=== PATIENT | female | born 1945 | race Caucasian/White ===

== ENCOUNTER 2020-04-14 09:43 | Outpatient (REF) | payer MEDICARE, SELFPAY ==
[2020-04-14 10:39] LABS: Alanine Aminotransferase 13 U/L (0-31); Anion Gap 14 (12-20); Aspartate Amino Transferase 15 U/L (5-31); Blood Urea Nitrogen 14 mg/dL (9-16); Carbon Dioxide 24 mmol/L (22-29); Chloride 101 mmol/L (96-108); Cholesterol 165 mg/dL; Estimated Glomerular Filt Rate 58; Glucose Fasting 106 mg/dL (60-99); HDL Cholesterol 50 mg/dL; LDL Cholesterol Calculated 91 mg/dl; Potassium 4.4 mmol/l (3.3-5.1); Sodium 135 mmol/L (135-145); Triglycerides 123 mg/dL
[2020-04-14 10:53] LABS: Free T4 (Free Thyroxine) 1.29 ng/dL (0.71-1.85); Vitamin D 25-OH Total 38.5 ng/mL (>30)
== END 2020-04-14 09:44 | disposition home or self-care (01) ==
LOC: HO.10HDL 09:43
PROVIDERS: PCP Internal Medicine; Visit Provider Internal Medicine
DX: E03.9 Hypothyroidism, unspecified (principal); M81.0 Age-related osteoporosis without current pathological fracture; E78.5 Hyperlipidemia, unspecified
CPT/HCPCS: 80048; 80061; 82306; 84439; 84450; 84460

== ENCOUNTER 2020-08-07 13:18 | Outpatient (REF) | payer MEDICARE, BC, SELFPAY ==
--- NOTE | ~2020-08-07 | MM_ITS ---
EXAMINATION: BONE DENSITOMETRY CLINICAL INDICATION: Age-related osteoporosis without current pathological fracture. COMPARISON: Previous BD dated 08/25/2017 and baseline BD dated 11/17/2006. TECHNIQUE: Using a [employer] DXA System (software version: 13.1) manufactured by [employer], dual-energy x-ray absorptiometry was performed of the lumbar spine and left hip. The images are of good technical quality. Summary results are attached. FINDINGS: AP SPINE L1-L4: Current: BMD 0.788 g/cm2, Z-score -2.0, T-score -3.3, osteoporosis, 5.2% increase from previous, 4.1% increase from baseline (<5% change is not significant). Prior: BMD 0.749 g/cm2. Baseline: BMD 0.757 g/cm2. LEFT FEMUR, NECK: Current: BMD 0.708 g/cm2, Z-score -0.7, T-score -2.4, osteopenia. Prior: BMD 0.819 g/cm2. Baseline: BMD 0.797 g/cm2. LEFT FEMUR, TOTAL: Current: BMD 0.784 g/cm2, Z-score -0.4, T-score -1.8, osteopenia, 9.7% decrease from previous, 12.7% decrease from baseline (<5% change is not significant). Prior: BMD 0.868 g/cm2. Baseline: BMD 0.898 g/cm2. IDENTIFIED RISK FACTORS: Kidney disease, height loss, family history (parental hip fracture), menopause. HISTORY OF FRACTURE: None listed. MEDICATIONS: Vitamin D. MM/XR DEXA axial skeleton IMPRESSION: 1. DIAGNOSIS: Osteoporosis based on the lowest T-score value of -3.3 in the lumbar spine applying World Health Organization criteria. 2. 10-YEAR FRACTURE RISK PREDICTION, FRAX: Major osteoporotic fracture (clinical spine, forearm, hip or shoulder) 29.0%. Hip fracture 18.7%. 3. Treatment Recommendations: NOF guidelines recommend consideration for treatment in postmenopausal women and men age 50 and older presenting with the following: -A hip or vertebral (clinical or morphometric) fracture. -T-score less than or equal to -2.5 at the femoral neck or spine after appropriate evaluation to exclude secondary causes. -Low bone mass at the hip or spine and a 10-year fracture probability by FRAX of greater than or equal to 3% for hip fracture or greater than or equal to 20% for major osteoporotic fracture based on the [place] adapted WHO algorithm. 4. Other Recommendations: All treatment decisions require clinical judgment and consideration of individual patient factors, including patient preferences, comorbidities, previous drug use, risk factors not captured in the FRAX model (e.g. frailty, falls, vitamin D deficiency, increased bone turnover, interval significant decline in bone density) and possible under or overestimation of fracture risk by FRAX. Additional medical evaluation for secondary cause of low bone mineral density may be appropriate. FUTURE SCAN RECOMMENDATION: People with diagnosed cases of osteoporosis or at high risk for fracture should have regular bone mineral density tests. For patients eligible for Medicare, routine testing is allowed once every 2 years. The testing frequency can be increased to one year for patients who have rapidly progressing disease, those who are receiving or discontinuing medical therapy to restore bone mass, or have additional risk factors.
--- NOTE | ~2020-08-07 | MM_ITS ---
EXAMINATION: MM SCREENING DIGITAL BREAST TOMOSYNTHESIS, BILATERAL CLINICAL INFORMATION: Screening. Asymptomatic. The lifetime risk of breast cancer based on the Tyrer-Cuzick Model is 3%. COMPARISON: Mammography: 09/04/2018, 08/25/2017, 05/25/2016. TECHNIQUE: Digital breast tomosynthesis is performed in both the craniocaudal and mediolateral oblique views along with computer-aided detection (CAD). Synthesized 2D images are generated from the tomosynthesis. Additional left MLO view is provided. FINDINGS: There are scattered areas of fibroglandular density (ACR BI-RADS breast composition Category b). Breast tissue composition borders on predominantly fatty replacement. There are no significant masses, abnormal calcifications, or other abnormalities. Parenchymal pattern is similar to prior exams. No developing density. Again, there are ductal secretory calcifications medial left breast. Bilateral mildly prominent draining veins are chronic as well. No skin thickening. No significant changes. MM/MM tomosynthesis screening BI IMPRESSION: No mammographic evidence of malignancy. ASSESSMENT: BI-RADS 2: Benign RECOMMENDATION: Routine annual mammography screening. This patient's information was entered into a reminder system with a target due date for their next mammogram.
== END 2020-08-07 13:19 | disposition home or self-care (01) ==
LOC: HO.MAMMO 13:18
PROVIDERS: PCP Internal Medicine; Visit Provider Internal Medicine
DX: Z13.820 Encounter for screening for osteoporosis (principal); Z12.31 Encounter for screening mammogram for malignant neoplasm of breast; M81.0 Age-related osteoporosis without current pathological fracture; Z78.0 Asymptomatic menopausal state; Z79.899 Other long term (current) drug therapy
CPT/HCPCS: 77063; 77067; 77080

== ENCOUNTER 2020-09-02 08:34 | Outpatient (REF) | payer MEDICARE, BC, SELFPAY ==
[2020-09-02 09:12] LABS: MANUAL DIFF FLAG NO
[2020-09-02 09:19] LABS: Basophils Absolute Auto 0.1 X10*3/uL (0.0-0.2); Basophils Percent Auto 0.7 % (0-2); Eosinophils Absolute Auto 0.2 X10*3/uL (0.0-0.4); Eosinophils Percent Auto 3.2 % (0-4); Hematocrit 43.9 % (37-47); Hemoglobin 14.4 g/dl (12.0-16.0); Imm Gran Abs Auto 0.03 X10*3/uL (0.00-0.03); Imm Gran Pct Auto 0.4 % (0.0-0.4); Lymphocytes Absolute Auto 1.2 X10*3/uL (1.2-4.9); Lymphocytes Percent Auto 16.9 % (20-40); Mean Corpuscular HGB Conc 32.8 g/dl (31.0-35.0); Mean Corpuscular Hemoglobin 30.7 pg (27.0-33.0); Mean Corpuscular Volume 93.6 fL (80-98); Mean Platelet Volume 8.8 fL (9.4-12.3); Monocytes Absolute Auto 0.6 X10*3/uL (0.1-1.2); Monocytes Percent Auto 8.8 % (2-11); Platelet Count 192 X10*3/uL (160-400); Red Blood Count 4.69 X10*6/uL (4.20-5.50); Red Cell Distribution Width 12.9 % (11.0-16.0); White Blood Count 7.2 X10*3/uL (4.8-10.8)
[2020-09-02 09:47] LABS: Alanine Aminotransferase 14 U/L (0-31); Alkaline Phosphatase 139 U/L (39-117); Anion Gap 13 (12-20); Aspartate Amino Transferase 14 U/L (5-31); Bilirubin Total 0.7 mg/dL (0.0-1.0); Blood Urea Nitrogen 15 mg/dL (9-16); Calcium 9.1 mg/dL (8.4-10.2); Carbon Dioxide 25 mmol/L (22-29); Chloride 103 mmol/L (96-108); Cholesterol 219 mg/dL; Estimated Glomerular Filt Rate 57; Glucose Fasting 113 mg/dL (60-99); HDL Cholesterol 55 mg/dL; LDL Cholesterol Calculated 145 mg/dl; Potassium 4.4 mmol/L (3.3-5.1); Sodium 137 mmol/L (135-145); Triglycerides 96 mg/dL
[2020-09-02 09:52] LABS: Free T4 (Free Thyroxine) 1.35 ng/dL (0.71-1.85); Thyroid Stimulating Hormone 1.42 uIU/mL (0.32-4.0); Vitamin D 25-OH Total 37.3 ng/mL (>30)
== END 2020-09-02 08:35 | disposition home or self-care (01) ==
LOC: HO.LAB 08:34
PROVIDERS: PCP Internal Medicine; Visit Provider Internal Medicine
DX: E04.2 Nontoxic multinodular goiter (principal); E78.5 Hyperlipidemia, unspecified; I48.0 Paroxysmal atrial fibrillation; N18.30 Chronic kidney disease, stage 3 unspecified; M81.0 Age-related osteoporosis without current pathological fracture; E03.9 Hypothyroidism, unspecified; Z78.0 Asymptomatic menopausal state
CPT/HCPCS: 36415; 80053; 80061; 82306; 84439; 84443; 85025

== ENCOUNTER → 2020-10-06 10:52 | Outpatient (BNVA) | payer MEDICARE, BC, SELFPAY | PROVIDERS: PCP Internal Medicine; Visit Provider Internal Medicine Endocrinology, Diabetes & Metabolism | DX: M81.0 Age-related osteoporosis without current pathological fracture (principal); E04.2 Nontoxic multinodular goiter | CPT/HCPCS: 99202 ==

== ENCOUNTER 2020-10-07 08:41 | Outpatient (REF) | payer MEDICARE, BC, SELFPAY ==
[2020-10-07 09:46] LABS: Alanine Aminotransferase 11 U/L (0-31); Alkaline Phosphatase 141 U/L (39-117); Anion Gap 12 (12-20); Aspartate Amino Transferase 13 U/L (5-31); Bilirubin Total 0.8 mg/dL (0.0-1.0); Blood Urea Nitrogen 14 mg/dL (9-16); Calcium 9.1 mg/dL (8.4-10.2); Carbon Dioxide 23 mmol/L (22-29); Chloride 105 mmol/L (96-108); Estimated Glomerular Filt Rate 51; Glucose Fasting 114 mg/dL (60-99); Potassium 4.2 mmol/L (3.3-5.1); Sodium 136 mmol/L (135-145); Total Protein 6.9 g/dL (6.5-8.0)
[2020-10-09 15:27] LABS: Calcium (PTHI) 9.1 mg/dL (8.6-10.4); PTHI 41 pg/mL (14-64)
[2020-10-10 09:42] LABS: Alkaline Phosphatase Bone 26.2 mcg/L (5.6-29.0)
[2020-10-11 17:23] LABS: VITAMIN D (1,25 OH) D3 47 pg/mL; Vit D (1,25-Dihydroxy) Total 47 pg/mL (18-72); Vitamin D (1,25 OH) D2 <8 pg/mL
[2020-10-12 00:12] LABS: N-Telopeptide 46 (see note); NTXCreaRU 37 mg/dL (20-275)
== END 2020-10-07 08:42 | disposition home or self-care (01) ==
LOC: HO.10HDL 08:41
PROVIDERS: Visit Provider Internal Medicine Endocrinology, Diabetes & Metabolism
DX: M81.0 Age-related osteoporosis without current pathological fracture (principal)
CPT/HCPCS: 36415; 80053; 82523; 82652; 83970; 84075

== ENCOUNTER 2020-10-22 09:37 | Outpatient (REF) | payer MEDICARE, BC, SELFPAY ==
[2020-10-22 11:22] LABS: Total Volume 24 Hour Urine 1950 mL
[2020-10-22 12:23] LABS: Creatinine, 24Hr Urine 0.8 G/Day (1.0-2.0)
[2020-10-23 18:56] LABS: Calcium, 24 Hr Urine 216 mg/24 h; Calcium/Creatinine Ratio 247 mg/g creat (30-275); Creatinine 24Hr Urine 0.88 g/24 h (0.50-2.15)
== END 2020-10-22 09:38 | disposition home or self-care (01) ==
LOC: HO.10HDLNP 09:37
PROVIDERS: Visit Provider Internal Medicine Endocrinology, Diabetes & Metabolism
DX: M81.0 Age-related osteoporosis without current pathological fracture (principal)
CPT/HCPCS: 82340; 82570

== ENCOUNTER → 2020-11-04 10:38 | Outpatient (BNVA) | payer MEDICARE, BC, SELFPAY | PROVIDERS: PCP Internal Medicine; Visit Provider Internal Medicine Endocrinology, Diabetes & Metabolism | DX: M81.0 Age-related osteoporosis without current pathological fracture (principal); E03.9 Hypothyroidism, unspecified; E04.2 Nontoxic multinodular goiter; N18.30 Chronic kidney disease, stage 3 unspecified; E78.5 Hyperlipidemia, unspecified; E55.9 Vitamin D deficiency, unspecified; I48.0 Paroxysmal atrial fibrillation; Z87.891 Personal history of nicotine dependence | CPT/HCPCS: 99212 ==

== ENCOUNTER 2020-11-14 15:33 | Outpatient (REF) | payer MEDICARE, BC, SELFPAY ==
--- NOTE | ~2020-11-14 | US_ITS ---
EXAMINATION: US THYROID CLINICAL INFORMATION: Nontoxic multinodular goiter. COMPARISON: Ultrasound soft tissue head/neck thyroid dated 09/14/2010 and 12/20/2007. CT neck with intravenous contrast dated 03/11/2009. TECHNIQUE: Linear transducer cortes-scale and color Doppler examination with attention to the region of the thyroid. FINDINGS: SIZE: Measurements of the thyroid lobes and nodules are given in sagittal, anteroposterior and transverse dimensions respectively. Right Thyroid Lobe: 2.8 x 0.9 x 1.4 cm, volume 1.8 mL. Previously 3.6 x 1.5 x 1.2 cm, volume 3.4 mL. Parenchyma: The gland echotexture is homogeneous. Thyroid vascularity is normal. Left Thyroid Lobe: 4.9 x 1.5 x 2.0 cm, volume 7.6 mL. Previously 4.5 x 1.8 x 1.4 cm, volume 5.9 mL. Parenchyma: The gland echotexture is heterogeneous. Thyroid vascularity is increased. Isthmus: 0.3 cm in maximum AP dimension. Previously 0.3 cm. Estimated total number of nodules greater than or equal to 1 cm: 1. Business Process Analyst nodules are described as follows: 1. Location: Right mid. Size: 0.5 x 0.4 x 0.4 cm, volume 0.04 mL. Previously: 0.3 x 0.2 x 0.5 cm, volume 0.02 mL. Nodule characteristics: Composition: Solid (2). Echogenicity: Hypoechoic (2). Shape: Not taller than wide (0). Margins: Smooth (0). Echogenic Foci: None (0). ACR TI-RADS total points: 4 Previous: n/a ACR TI-RADS category: 4 Previous: n/a Significant change in size (>/= 20% in 2 dimensions and minimal increase of 2 mm or 50% or greater increase in volume): None. Change in features: None. Change in ACR TI-RADS risk category: n/a 2. Location: Right inferior. Size: 0.6 x 0.4 x 0.6 cm, volume 0.07 mL. Previously: Not seen previously. Nodule characteristics: Composition: Solid (2). Echogenicity: Hypoechoic (2). Shape: Not taller than wide (0). Margins: Smooth (0). Echogenic Foci: None (0). ACR TI-RADS total points: 4 Previous: n/a ACR TI-RADS category: 4 Previous: n/a Significant change in size (>/= 20% in 2 dimensions and minimal increase of 2 mm or 50% or greater increase in volume): None Change in features: None Change in ACR TI-RADS risk category: n/a 3. Location: Left inferior. Size: 3.2 x 1.5 x 2.2 cm, volume 5.7 mL. Previously: 2.1 x 1.4 x 2.0 cm, volume 3.1 mL. Nodule characteristics: Composition: Solid/almost completely solid (2). Echogenicity: Isoechoic (1). Shape: Not taller than wide (0). Margins: Smooth (0). Echogenic Foci: None (0). ACR TI-RADS total points: 3 Previous: n/a ACR TI-RADS category: 3 Previous: n/a Significant change in size (>/= 20% in 2 dimensions and minimal increase of 2 mm or 50% or greater increase in volume): Increased in size. Patient did negative biopsy in 2003. Change in features: None Change in ACR TI-RADS risk category: n/a 4. Location: Left mid lateral. Size: 0.8 x 0.6 x 1.1 cm, volume 0.3 mL. Previously: 0.8 x 0.6 x 0.8 cm, volume 0.2 mL. Nodule characteristics: Composition: Solid (2). Echogenicity: Hypoechoic (2). Shape: Not taller than wide (0). Margins: Smooth (0). Echogenic Foci: None (0). ACR TI-RADS total points: 4 Previous: n/a ACR TI-RADS category: 4 Previous: n/a Significant change in size (>/= 20% in 2 dimensions and minimal increase of 2 mm or 50% or greater increase in volume): None Change in features: None Change in ACR TI-RADS risk category: n/a NODES: Small left neck level 3 lymph node measuring 0.9 x 0.6 x 0.7 cm. US/US thyroid IMPRESSION: Multiple thyroid nodules. Largest left lower pole nodule is solid and has increased in size. This nodule was biopsied in 2003. By ACR TI-RADS reference a repeat biopsy is recommended. ACR TI-RADS RECOMMENDATION REFERENCE: Ultrasound-guided fine-needle aspiration, followup ultrasound, no further follow up. * TR1 (0 point) and TR 2 (2 points): No FNA or follow up * TR3 (3 points): FNA if more than or equal to 2.5 cm in maximum dimension, followup ultrasound in 1, 3 and 5 years if 1.5 to 2.4 cm in maximum dimension. * TR4 (4-6 points): FNA if more than or equal to 1.5 cm in maximum dimension, followup ultrasound in 1, 2, 3 and 5 years if 1 to 1.4 cm in maximum dimension. * TR5 (more than or equal to 7 points): FNA if more than or equal to 1 cm in maximum dimension, followup ultrasound every year for 5 years if 0.5 to 0.9 cm in maximum dimension. * TR3, TR4 or TR5 nodules that are below the size threshold for follow up receive no follow up.
== END 2020-11-14 15:34 | disposition home or self-care (01) ==
LOC: HO.US 15:33
PROVIDERS: Visit Provider Internal Medicine Endocrinology, Diabetes & Metabolism
DX: E04.2 Nontoxic multinodular goiter (principal)
CPT/HCPCS: 76536

== ENCOUNTER 2021-01-08 09:39 | Outpatient (REF) | payer MEDICARE, BC, SELFPAY ==
[2021-01-08 10:36] LABS: Estimated Average Glucose 94 mg/dL; Hemoglobin A1c % 4.9 %
[2021-01-08 10:41] LABS: Alanine Aminotransferase 11 U/L (0-31); Anion Gap 9 (12-20); Aspartate Amino Transferase 14 U/L (5-31); Blood Urea Nitrogen 17 mg/dL (9-16); Calcium 9.5 mg/dL (8.4-10.2); Carbon Dioxide 27 mmol/L (22-29); Chloride 100 mmol/L (96-108); Cholesterol 165 mg/dL; Estimated Glomerular Filt Rate 53; Glucose Fasting 104 mg/dL (60-99); HDL Cholesterol 56 mg/dL; LDL Cholesterol Calculated 93 mg/dl; Potassium 4.4 mmol/L (3.3-5.1); Sodium 132 mmol/L (135-145); Triglycerides 84 mg/dL
[2021-01-08 10:59] LABS: Free T4 (Free Thyroxine) 1.43 ng/dL (0.71-1.85); Thyroid Stimulating Hormone 1.69 uIU/mL (0.32-4.0)
[2021-01-09 17:32] LABS: Thyroid Peroxidase Antibodies 1 IU/mL (<9)
== END 2021-01-08 09:40 | disposition home or self-care (01) ==
LOC: HO.10HDL 09:39
PROVIDERS: Visit Provider Internal Medicine
DX: E78.5 Hyperlipidemia, unspecified (principal); E04.2 Nontoxic multinodular goiter; M19.90 Unspecified osteoarthritis, unspecified site; R73.01 Impaired fasting glucose; E03.9 Hypothyroidism, unspecified; I10 Essential (primary) hypertension
CPT/HCPCS: 36415; 80048; 80061; 82550; 83036; 84439; 84443; 84450; 84460; 86376

== ENCOUNTER → 2021-05-04 10:18 | Outpatient (BNVA) | payer MEDICARE, BC, SELFPAY | PROVIDERS: PCP Internal Medicine; Visit Provider Internal Medicine | DX: M81.0 Age-related osteoporosis without current pathological fracture (principal); E04.2 Nontoxic multinodular goiter; E55.9 Vitamin D deficiency, unspecified | CPT/HCPCS: 36415; 80053; 82306; 82330; 83970; 84075; 84100; 84165; 84439; 84443; 99212 ==

== ENCOUNTER 2021-05-04 11:05 | Outpatient (REF) | payer MEDICARE, BC, SELFPAY ==
[2021-05-04 14:31] LABS: Alanine Aminotransferase 14 U/L (0-31); Albumin Level 3.8 g/dL (3.5-5.0); Alkaline Phosphatase 121 U/L (39-117); Anion Gap 11 (12-20); Aspartate Amino Transferase 15 U/L (5-31); Bilirubin Total 0.5 mg/dL (0.0-1.0); Blood Urea Nitrogen 17 mg/dL (9-16); Calcium 9.3 mg/dL (8.4-10.2); Carbon Dioxide 26 mmol/L (22-29); Chloride 102 mmol/L (96-108); Estimated Glomerular Filt Rate 50; Glucose Random 119 mg/dL (60-115); Phosphorus 3.7 mg/dL (2.7-4.5); Potassium 4.4 mmol/L (3.3-5.1); Sodium 135 mmol/L (135-145); Total Protein 7.1 g/dL (6.5-8.0)
[2021-05-04 14:56] LABS: Free T4 (Free Thyroxine) 1.24 ng/dL (0.71-1.85); Thyroid Stimulating Hormone 1.91 uIU/mL (0.32-4.0); Vitamin D 25-OH Total 34.1 ng/mL (>30)
[2021-05-05 13:31] LABS: Calcium (PTHI) 9.4 mg/dL (8.6-10.4); PTHI 52 pg/mL (14-64)
[2021-05-05 15:17] LABS: Calcium, Ionized 4.9 mg/dL (4.8-5.6)
[2021-05-05 21:02] LABS: Prot Elec - Albumin 3.7 g/dL (3.8-4.8); Prot Elec - Alpha1 0.4 g/dL (0.2-0.3); Prot Elec - Alpha2 0.8 g/dL (0.5-0.9); Prot Elec - Beta 1 0.4 g/dL (0.4-0.6); Prot Elec - Beta 2 0.4 g/dL (0.2-0.5); Prot Elec - Gamma 1.2 g/dL (0.8-1.7); Prot Elec - Total Protein 6.9 g/dL (6.1-8.1)
[2021-05-08 14:26] LABS: Alkaline Phosphatase Bone 25.2 mcg/L (5.6-29.0)
== END 2021-05-04 11:06 | disposition home or self-care (01) ==
LOC: HO.10HDL 11:05
PROVIDERS: Visit Provider Internal Medicine
DX: Z13.89 Encounter for screening for other disorder (principal)
CPT/HCPCS: 36415; 80053; 82306; 82330; 83970; 84075; 84100; 84165; 84439; 84443

== ENCOUNTER 2021-05-06 14:32 | Outpatient (REF) | payer MEDICARE, BC, SELFPAY ==
[2021-05-06 15:07] LABS: Creatinine, mg/dL 61.44
[2021-05-06 16:26] LABS: Total Volume 24 Hour Urine 1650 mL
[2021-05-08 18:31] LABS: Calcium, 24 Hr Urine 104 mg/24 h; Calcium/Creatinine Ratio 103 mg/g creat (30-275); Creatinine 24Hr Urine 1.01 g/24 h (0.50-2.15)
[2021-05-11 21:07] LABS: N-Telopeptide 51 (see note); NTXCreaRU 44 mg/dL (20-275)
== END 2021-05-06 14:33 | disposition home or self-care (01) ==
LOC: HO.LNP 14:32
PROVIDERS: Visit Provider Internal Medicine
DX: M81.0 Age-related osteoporosis without current pathological fracture (principal)
CPT/HCPCS: 82340; 82523; 82570

== ENCOUNTER 2021-05-14 10:32 | Outpatient (REF) | payer MEDICARE, BC, SELFPAY ==
--- NOTE | 2021-05-14 11:19 | PM.OP ---
Brief Operative Note Date of Service: 05/14/21 Pre-op diagnosis: Multinodular Thyroid Procedure: This is doctor Audra Belcher. This is an ultrasound-guided fine-needle aspiration report. Date of Examination: 05/14/2021 Indication: Multinodular Thyroid Porcedure: Procedure was explained to the patient. Alternatives, the risk and benefits were discussed. Written consent was obtained. A time-out was also obtained. After sterile preparation, fine-needle aspiration of a left mid pole 1.1 cm thyroid nodule was performed using direct ultrasound guidance to confirm accurate needle placement. Three aspirations were made using 27 gauge needles. Samples were submitted for cytology. One pass was dedicated for [employer] sequencing animal care service worker testing. Our attention was then turned to the left lower pole. Fine-needle aspiration of a left lower pole 3.2 cm thyroid nodule was performed using direct ultrasound guidance to confirm accurate needle placement. Three aspirations were made using 27 gauge needles. Samples were submitted for cytology. One pass was dedicated for [employer] sequencing animal care service worker testing. The patient tolerated the procedure well. Aftercare instructions were provided. Impression: Uncomplicated fine needle aspiration biopsy of a left mid pole 1.1 cm thyroid nodule and a left lower pole 3.2 cm thyroid nodule under ultrasound guidance. Surgeon: Audra Belcher, DO Was an Electrical Assemblies Supervisor used for this Procedure?: No Estimated blood loss (mL): 0
[2021-05-14] MEDS: Lidocaine HCl 1 % MPF 5 ML VIAL 2 ML SUBCUT (11:38)
== END 2021-05-14 10:33 | disposition home or self-care (01) ==
LOC: HO.US 10:32
PROVIDERS: Visit Provider Internal Medicine
DX: E04.2 Nontoxic multinodular goiter (principal)
CPT/HCPCS: 10005; 10006; 88172; 88173; 88177; 88305

== ENCOUNTER → 2021-05-28 11:29 | Outpatient (BNVA) | payer MEDICARE, BC, SELFPAY | PROVIDERS: PCP Internal Medicine; Visit Provider Internal Medicine | DX: Z13.89 Encounter for screening for other disorder (principal) ==

== ENCOUNTER → 2021-06-01 07:40 | Outpatient (BNVA) | payer MEDICARE, BC, SELFPAY | PROVIDERS: PCP Internal Medicine; Visit Provider Internal Medicine | DX: M81.0 Age-related osteoporosis without current pathological fracture (principal); E04.2 Nontoxic multinodular goiter; E55.9 Vitamin D deficiency, unspecified | CPT/HCPCS: Q3014 ==

== ENCOUNTER 2021-06-22 08:54 | Outpatient (REF) | payer MEDICARE, BC, SELFPAY ==
[2021-06-22 10:50] LABS: Alanine Aminotransferase 11 U/L (0-31); Aspartate Amino Transferase 17 U/L (5-31); Cholesterol 163 mg/dL; HDL Cholesterol 52 mg/dL; LDL Cholesterol Calculated 85 mg/dl; Triglycerides 134 mg/dL
[2021-06-22 11:14] LABS: Vitamin D 25-OH Total 36.3 ng/mL (>30)
== END 2021-06-22 08:55 | disposition home or self-care (01) ==
LOC: HO.10HDL 08:54
PROVIDERS: Visit Provider Internal Medicine
DX: E78.5 Hyperlipidemia, unspecified (principal)
CPT/HCPCS: 36415; 80061; 82306; 84450; 84460

== ENCOUNTER 2021-08-19 08:57 | Outpatient (REF) | payer MEDICARE, BC, SELFPAY ==
[2021-08-19 11:06] LABS: Estimated Average Glucose 97 mg/dL; Hemoglobin A1C 127.4997 umol/L
[2021-08-19 11:12] LABS: Creatinine Urine 92.17 mg/dL
== END 2021-08-19 08:58 | disposition home or self-care (01) ==
LOC: HO.10HDL 08:57
PROVIDERS: Visit Provider Internal Medicine
DX: R73.01 Impaired fasting glucose (principal)
CPT/HCPCS: 36415; 82043; 83036

== ENCOUNTER 2021-09-24 12:36 | Outpatient (REF) | payer MEDICARE, BC, SELFPAY ==
[2021-09-24 12:58] LABS: MANUAL DIFF FLAG NO
[2021-09-24 13:30] LABS: Basophils Absolute Auto 0.1 X10*3/uL (0.0-0.2); Basophils Percent Auto 0.8 % (0-2); Eosinophils Absolute Auto 0.3 X10*3/uL (0.0-0.4); Eosinophils Percent Auto 3.5 % (0-4); Hematocrit 47.8 % (37.0-47.0); Hemoglobin 15.6 g/dl (12.0-16.0); Imm Gran Abs Auto 0.02 X10*3/uL (0.00-0.03); Imm Gran Pct Auto 0.2 % (0.0-0.4); Lymphocytes Absolute Auto 1.7 X10*3/uL (1.2-4.9); Lymphocytes Percent Auto 18.5 % (20-40); Mean Corpuscular HGB Conc 32.6 g/dl (31.0-35.0); Mean Corpuscular Volume 94.8 fL (80.0-98.0); Mean Platelet Volume 9.2 fL (9.4-12.3); Monocytes Absolute Auto 0.7 X10*3/uL (0.1-1.2); Neutrophils Absolute Auto 6.3 x10*3/uL (2.0-8.3); Platelet Count 193 X10*3/uL (160-400); Red Blood Count 5.04 X10*6/uL (4.20-5.50); Red Cell Distribution Width 13.1 % (11.0-16.0); White Blood Count 9.1 X10*3/uL (4.8-10.8)
[2021-09-24 13:47] LABS: Appearance Urine HAZY; Color Urine YELLOW; Glucose Urine UA NEG (NEG); Leukocyte Esterase Urine 2+ (NEG); Nitrite Urine NEG (NEG); Urine Blood 1+ (NEG); Urine Ketones NEG (NEG); Urine Protein NEG (NEG-TRACE)
[2021-09-24 13:57] LABS: Albumin Level 4.1 g/dL (3.5-5.0); Anion Gap 13 (12-20); Blood Urea Nitrogen 21 mg/dL (9-16); Carbon Dioxide 26 mmol/L (22-29); Chloride 103 mmol/L (96-108); Estimated Glomerular Filt Rate 46; Magnesium 2.4 mg/dL (1.6-2.6); Phosphorus 4.5 mg/dL (2.7-4.5); Potassium 4.8 mmol/L (3.3-5.1); Sodium 137 mmol/L (135-145)
[2021-09-24 14:03] LABS: Protein/Creatinine Ratio, Ur 0.13 (<0.2); Total Protein Urine Random 10 mg/dL (<12)
[2021-09-24 14:20] LABS: Bacteria Urine 2+ /LPF; Squamous Epithelial Cell Urine TRACE /LPF
[2021-09-25 12:11] LABS: Calcium (PTHI) 9.8 mg/dL (8.6-10.4); PTHI 59 pg/mL (16-77)
== END 2021-09-24 12:37 | disposition home or self-care (01) ==
LOC: HO.LAB 12:36
PROVIDERS: PCP Internal Medicine; Visit Provider Internal Medicine Nephrology
DX: N18.31 Chronic kidney disease, stage 3a (principal); N25.0 Renal osteodystrophy; R82.71 Bacteriuria; B96.20 Unspecified Escherichia coli [E. coli] as the cause of diseases classified elsewhere; B96.89 Other specified bacterial agents as the cause of diseases classified elsewhere
CPT/HCPCS: 36415; 80051; 81001; 82040; 82306; 82310; 82565; 83735; 83970; 84100; 84156; 84520; 85025; 87086; 87088; 87186

== ENCOUNTER → 2021-11-30 09:17 | Outpatient (BNVA) | payer MEDICARE, BC, SELFPAY | PROVIDERS: PCP Internal Medicine; Visit Provider Internal Medicine | DX: M81.0 Age-related osteoporosis without current pathological fracture (principal); E04.2 Nontoxic multinodular goiter | CPT/HCPCS: 99212 ==

== ENCOUNTER 2022-02-01 10:07 | Outpatient (REF) | payer MEDICARE, BC, SELFPAY ==
[2022-02-01 12:06] LABS: Alanine Aminotransferase 10 U/L (0-31); Alkaline Phosphatase 142 U/L (39-117); Anion Gap 14 (12-20); Aspartate Amino Transferase 13 U/L (5-31); Bilirubin Total 0.6 mg/dL (0.0-1.0); Blood Urea Nitrogen 21 mg/dL (9-16); Calcium 9.3 mg/dL (8.4-10.2); Carbon Dioxide 25 mmol/L (22-29); Chloride 101 mmol/L (96-108); Estimated Glomerular Filt Rate 53; Glucose Random 74 mg/dL (60-115); Phosphorus 3.8 mg/dL (2.7-4.5); Potassium 4.4 mmol/L (3.3-5.1); Sodium 136 mmol/L (135-145); Total Protein 7.3 g/dL (6.5-8.0)
[2022-02-01 12:15] LABS: Free T4 (Free Thyroxine) 1.21 ng/dL (0.71-1.85); Thyroid Stimulating Hormone 1.88 uIU/mL (0.32-4.0); Vitamin D 25-OH Total 37.2 ng/mL (>30)
[2022-02-02 10:46] LABS: Calcium (PTHI) 9.2 mg/dL (8.6-10.4); PTHI 71 pg/mL (16-77)
[2022-02-07 04:03] LABS: N-Telopeptide 42 (see note); NTXCreaRU 43 mg/dL (20-275)
== END 2022-02-01 10:08 | disposition home or self-care (01) ==
LOC: HO.LAB 10:07
PROVIDERS: PCP Internal Medicine; Visit Provider Internal Medicine
DX: E55.9 Vitamin D deficiency, unspecified (principal); E03.9 Hypothyroidism, unspecified; E04.2 Nontoxic multinodular goiter; M81.0 Age-related osteoporosis without current pathological fracture
CPT/HCPCS: 36415; 80053; 82306; 82523; 83970; 84100; 84439; 84443

== ENCOUNTER → 2022-02-10 13:59 | Outpatient (BNVA) | payer MEDICARE, BC, SELFPAY | PROVIDERS: PCP Internal Medicine; Visit Provider Internal Medicine Endocrinology, Diabetes & Metabolism | DX: M81.0 Age-related osteoporosis without current pathological fracture (principal) | CPT/HCPCS: 96372 ==

== ENCOUNTER 2022-05-27 14:53 | Outpatient (AMB) | payer MEDICARE, BC, SELFPAY ==
--- NOTE | 2022-05-27 15:36 | MHC.PC.OV ---
Vital Signs 05/27/22 15:37 Height 5 ft 2 in Weight 174 lb BMI 31.8 BP 100/60 Blood Pressure Location Lt brachial Position Sitting Pulse 76 Pulse Source Pulse Oximeter Pulse Oximetry (%) 97 Oxygen Delivery Method Room Air Intake Visit Reasons: 6M. F/U-Colonoscopy/A1C/Microalbum Intake Note: Pt is here today for her 6 months f/u Allergies tetracycline [TETRACYCLINE] Allergy (Unknown, Verified 05/27/22 15:56) ITCHINESS, rash nitrofurantoin Allergy (Verified 05/27/22 15:56) Swelling atorvastatin [Lipitor] Adverse Reaction (Unknown, Verified 05/27/22 15:56) Muscle pain bactrim Allergy (Unknown, Uncoded 05/27/22 15:56) Elevated LFTs/Itching/Nausea Medication List - Last Reconciled 05/27/22 by Kala Lundberg MD apixaban (Eliquis) 5 mg PO BID calcium citrate 500 mg (2 x 250 mg calcium) PO BID 90 days cholecalciferol (vitamin D3) 25 mcg PO DAILY 90 days diltiazem HCl 180 mg PO QAM flecainide 50 mg PO Q12H levothyroxine 75 mcg PO DAILY rosuvastatin 5 mg PO 2XW 90 days Tobacco use date assessed: 05/27/22 Fall risk assessment: No Falls in past year Last assessed Fall Risk: 05/27/22 [facility] Medical History Acquired hypothyroidism Chronic kidney disease, stage 3 COPD (chronic obstructive pulmonary disease) Dyslipidemia Impaired fasting glucose Inflammatory arthritis Mixed stress and urge urinary incontinence Multinodular thyroid Osteoporosis Paroxysmal atrial fibrillation Vitamin D deficiency Surgical History History of section Hx of colonoscopy S/P partial hysterectomy Family History Father CVA (cerebral vascular accident) AAA (abdominal aortic aneurysm) Mother Diabetes mellitus HTN (hypertension) Sister Diabetes mellitus Son Substance use disorder Son Substance use disorder Social History Household Members: Children Housing: Unknown / Unable to assess Alcohol intake: current Alcohol intake frequency: holidays/special occasions only Patient Tobacco Use Status: Former Tobacco user Years Smoked: 20 years e-Cigarette/Vaping Use: Never Used Current occupational status: retired Cognitive needs: No Hearing needs: No Vision needs: Yes Questionnaire Thrive Questionnaire Date Thrive assessed: 01/06/21 CATIA-7 AMB Questionnaire CATIA-7 Date CATIA - 7 assessed: 04/07/21 Source: Developed by Drs. Orlando Forbes, Leah Yepez, Samuel Pelayo and colleagues, with an educational cuba from [employer]. Physical exam (Primary Care) Vital Signs: Last Vital Signs Pulse 76 05/27/22 15:37 BP 100/60 05/27/22 15:37 Pulse Ox 97 05/27/22 15:37 Oxygen Delivery Method Room Air 05/27/22 15:37 BMI result Body Mass Index 31.8 Tobacco/Smoking Status: Tobacco use Status Tobacco use date assessed 05/27/22 05/27/22 15:42 Patient Tobacco Use Status Former Tobacco user 05/27/22 15:42 e-Cigarette/Vaping Use Never Used 05/27/22 15:42 Thrive Assessment: Date of Thrive Assessment Date Thrive assessed 01/06/21 05/27/22 15:42 Assessment and Plan Assessment & Plan (1) Impaired fasting glucose: Code(s): R73.01 - Impaired fasting glucose (2) Dyslipidemia: Code(s): E78.5 - Hyperlipidemia, unspecified (3) Colon cancer screening: Code(s): Z12.11 - Encounter for screening for malignant neoplasm of colon Orders: Orders Glucose Fasting Today E78.5 - Hyperlipidemia, unspecified, R73.01 - Impaired fasting glucose Hemoglobin A1c Today E78.5 - Hyperlipidemia, unspecified, R73.01 - Impaired fasting glucose Lipid Panel Today E78.5 - Hyperlipidemia, unspecified, R73.01 - Impaired fasting glucose Referrals Cologuard Test Z12.11 - Encounter for screening for malignant neoplasm of colon, Z12.12 - Encounter for screening for malignant neoplasm of rectum Coding Level of Care Code Est Pt Level 3 (10396) Diagnoses Impaired fasting glucose R73.01 Dyslipidemia E78.5 Colon cancer screening Z12.11
[2022-05-27 15:37] VITALS: BP 100/60; PULSE 76; O2SAT 97; BMI 31.8
== END 2022-05-27 16:19 | disposition home or self-care (01) ==
LOC: HO.HMGC 14:53
PROVIDERS: PCP Internal Medicine; Visit Provider Internal Medicine
DX: R73.01 Impaired fasting glucose (principal); E78.5 Hyperlipidemia, unspecified; Z12.11 Encounter for screening for malignant neoplasm of colon
CPT/HCPCS: 99499

== ENCOUNTER 2022-06-30 08:22 | Outpatient (REF) | payer MEDICARE, BC, SELFPAY ==
[2022-06-30 11:13] LABS: Estimated Average Glucose 105 mg/dL; Hemoglobin A1c % 5.3 %
[2022-06-30 11:35] LABS: Cholesterol 232 mg/dL; Glucose Fasting 96 mg/dL (60-99); HDL Cholesterol 56 mg/dL; LDL Cholesterol Calculated 154 mg/dl; Triglycerides 113 mg/dL
== END 2022-06-30 08:23 | disposition home or self-care (01) ==
LOC: HO.10HDL 08:22
PROVIDERS: Visit Provider Internal Medicine
DX: R73.01 Impaired fasting glucose (principal); E78.5 Hyperlipidemia, unspecified
CPT/HCPCS: 36415; 80061; 82947; 83036

== ENCOUNTER 2022-07-16 08:11 | Outpatient (REF) | payer MEDICARE, BC, SELFPAY ==
[2022-07-16 10:43] LABS: Hematocrit 45.9 % (37.0-47.0); Hemoglobin 15.1 g/dl (12.0-16.0); Red Blood Count 4.91 X10*6/uL (4.20-5.50); White Blood Count 6.8 X10*3/uL (4.8-10.8)
[2022-07-16 10:44] LABS: Mean Corpuscular HGB Conc 32.9 g/dl (31.0-35.0); Mean Corpuscular Hemoglobin 30.8 pg (27.0-33.0); Mean Corpuscular Volume 93.5 fL (80.0-98.0); Mean Platelet Volume 9.3 fL (9.4-12.3); Platelet Count 189 X10*3/uL (160-400); Red Cell Distribution Width 13.1 % (11.0-16.0)
[2022-07-16 10:48] LABS: Appearance Urine Cloudy; Color Urine Yellow; Glucose Urine UA Negative (Negative); Leukocyte Esterase Urine Large (3+) (Negative); Nitrite Urine Negative (Negative); PH 6.5 (5.0-9.0); UMIC TRIGGER UA YES; Urine Blood Trace (Negative); Urine Ketones Negative (Negative); Urine Protein Negative (Neg-Trace)
[2022-07-16 10:53] LABS: Bacteria Urine 1+ (None Seen); Hyaline Casts Urine 0-2 /LPF (0-2); RBC Urine 0-2 /HPF (0-2); Squamous Epithelial Cell Urine 0-2 /HPF (0-2); WBC Urine >50 /HPF (0-5)
[2022-07-16 11:04] LABS: Anion Gap 12 (12-20); Blood Urea Nitrogen 14 mg/dL (9-16); Calcium 8.6 mg/dL (8.4-10.2); Carbon Dioxide 24 mmol/L (22-29); Chloride 105 mmol/L (96-108); Estimated Glomerular Filt Rate 59; Iron 70 mcg/dL (30-160); Percent Iron Saturation 26 % (15-50); Potassium 4.4 mmol/L (3.3-5.1); Sodium 137 mmol/L (135-145); Total Iron Binding Capacity 267 mcg/dL (228-428); Unsaturated Iron Binding 197 ug/dL; Uric Acid 5.9 mg/dL (2.4-5.7)
[2022-07-16 11:21] LABS: Vitamin D 25-OH Total 37.3 ng/mL (>30)
[2022-07-16 12:01] LABS: Creatinine Urine 52.39 mg/dL; Protein/Creatinine Ratio, Ur 0.23 (<0.2); Total Protein Urine Random 12 mg/dL (<12)
[2022-07-19 12:48] LABS: PTHI 36 pg/mL (16-77)
== END 2022-07-16 08:12 | disposition home or self-care (01) ==
LOC: HO.10HDL 08:11
PROVIDERS: Visit Provider Internal Medicine Nephrology
DX: Z13.89 Encounter for screening for other disorder (principal)
CPT/HCPCS: 36415; 80051; 81001; 82306; 82310; 82565; 83540; 83970; 84156; 84520; 84550; 85027

== ENCOUNTER 2022-07-16 14:06 | Outpatient (REF) | payer MEDICARE, BC, SELFPAY ==
--- NOTE | ~2022-07-16 | US_ITS ---
EXAMINATION: US RETROPERITONEAL LIMITED (RENAL ONLY) CLINICAL INFORMATION: CKD stage 3. COMPARISON: Ultrasound abdomen complete 04/11/2018. X-ray abdomen 07/29/2016. CT abdomen and pelvis 05/18/2012. TECHNIQUE: Real-time imaging of the kidneys. FINDINGS: RIGHT KIDNEY: 10.1 x 3.4 x 4.2 cm (SAG x AP x TRV). The kidney is normal in size, contour, and echogenicity. Renal cortical thickness is normal. No calculi or focal parenchymal lesions. No hydronephrosis. LEFT KIDNEY: 10.1 x 4.0 x 4.7 cm (SAG x AP x TRV). The kidney is normal in size, contour, and echogenicity. Renal cortical thickness is normal. No calculi or focal parenchymal lesions. No hydronephrosis. US/US renal BI IMPRESSION: Unremarkable appearing kidneys. No abnormality is seen to account for worsening renal function such as hydronephrosis or significant cortical loss.
== END 2022-07-16 14:07 | disposition home or self-care (01) ==
LOC: HO.US 14:06
PROVIDERS: PCP Internal Medicine; Visit Provider Internal Medicine Nephrology
DX: I12.9 Hypertensive chronic kidney disease with stage 1 through stage 4 chronic kidney disease, or unspecified chronic kidney disease (principal); N18.31 Chronic kidney disease, stage 3a
CPT/HCPCS: 36415; 76775; 80051; 81001; 82306; 82310; 82565; 83540; 83970; 84156; 84520; 84550; 85027

== ENCOUNTER 2022-09-09 08:53 | Outpatient (REF) | payer MEDICARE, BC, SELFPAY ==
--- NOTE | ~2022-09-09 | XR_ITS ---
EXAMINATION: XR CERVICAL SPINE CLINICAL INFORMATION: Cervicalgia COMPARISON: June 15, 2011 TECHNIQUE: 3 views of the cervical spine were obtained. FINDINGS: No abnormal prevertebral soft tissue swelling is seen. No acute cervical spine fracture is noted. There is approximately 2 mm of anterior subluxation of C3 on C4. There is some disc space narrowing seen at the C4-C5 and C5-C6 levels. The C7 vertebral body is not included on the study. There is facet arthropathy present C2-C5 bilaterally. There appears be osteopenia of visualized bones. No significant changes seen compared to study of June 15, 2011 XR/XR cervical spine 2V IMPRESSION: No acute fracture of the cervical spine identified. C7 not included on lateral view. 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 Anterior subluxation by 2 mm of C3 on C4.
== END 2022-09-09 08:54 | disposition home or self-care (01) ==
LOC: HO.HMGCX 08:53
PROVIDERS: Visit Provider Internal Medicine
DX: M54.2 Cervicalgia (principal)
CPT/HCPCS: 72040

== ENCOUNTER 2022-11-24 11:35 | Outpatient (AMB) | payer MEDICARE, BC, SELFPAY ==
--- NOTE | 2022-11-24 12:32 | MHC.PC.OV ---
Vital Signs 11/24/22 12:33 Height 5 ft 2 in Weight 174 lb BMI 31.8 BP 122/60 Blood Pressure Location Lt brachial Position Sitting Pulse 84 Pulse Source Pulse Oximeter Pulse Oximetry (%) 95 Oxygen Delivery Method Room Air Intake Visit Reasons: 6 month f/u Allergies tetracycline [TETRACYCLINE] Allergy (Unknown, Verified 11/24/22 16:27) ITCHINESS, rash nitrofurantoin Allergy (Verified 11/24/22 16:27) Swelling atorvastatin [Lipitor] Adverse Reaction (Unknown, Verified 11/24/22 16:27) Muscle pain bactrim Allergy (Unknown, Uncoded 11/24/22 16:27) Elevated LFTs/Itching/Nausea Medication List - Last Reconciled 11/24/22 by Kala Lundberg MD apixaban (Eliquis) 5 mg PO BID calcium citrate 500 mg (2 x 250 mg calcium) PO BID 90 days cholecalciferol (vitamin D3) 25 mcg PO DAILY 90 days cyclobenzaprine 5 mg PO BEDTIME 7 days diltiazem HCl 180 mg PO QAM flecainide 75 mg PO Q12H levothyroxine 75 mcg PO DAILY rosuvastatin 5 mg PO 2XW 90 days Tobacco use date assessed: 11/24/22 Fall risk assessment: No Falls in past year Last assessed Fall Risk: 11/24/22 Dental Screening Dental Screen Date: 11/24/22 Did you have a dental visit in the last 12 months?: No Did you have a dental problem in the last 6 months where you did not have access to dental care?: No Was dental information given to patient?: No HPI 6 month f/u HPI Details 77-year-old lady with history of multinodular goiter, acquired hypothyroidism, dyslipidemia, has paroxysmal atrial fibrillation on apixaban, has hyperuricemia,, here today for follow-up. She has just contracted COVID infection again last month, developed only a mild cough and generalized achiness for the which lasted several days. Feels better now. She has been compliant with taking her medications, tries to stay active and some regular exercise. Denies any muscle pain/weakness, no chest pain, , no dizziness, no shortness of breath reported [facility] Medical History (Updated 11/24/22 @ 16:37 by Kala Lundberg MD) Acquired hypothyroidism Chronic kidney disease, stage 3 COPD (chronic obstructive pulmonary disease) Dyslipidemia Hyperuricemia Impaired fasting glucose Inflammatory arthritis Mixed stress and urge urinary incontinence Multinodular thyroid Osteoporosis Paroxysmal atrial fibrillation Vitamin D deficiency Surgical History History of section Hx of colonoscopy S/P partial hysterectomy Family History Father CVA (cerebral vascular accident) AAA (abdominal aortic aneurysm) Mother Diabetes mellitus HTN (hypertension) Sister Diabetes mellitus Son Substance use disorder Son Substance use disorder Social History Household Members: Children Housing: Unknown / Unable to assess Alcohol intake: current Alcohol intake frequency: holidays/special occasions only Patient Tobacco Use Status: Former Tobacco user Years Smoked: 20 years e-Cigarette/Vaping Use: Never Used Current occupational status: retired Cognitive needs: No Hearing needs: No Vision needs: Yes Questionnaire PHQ-9 Over the last 2 weeks, how often have you been bothered by any of the following problems? 1. Little interest or pleasure in doing things: not at all 2. Feeling down, depressed, or hopeless: not at all 3. Trouble falling or staying asleep, or sleeping too much: not at all 4. Feeling tired or having little energy: several days 5. Poor appetite or overeating: not at all 6. Feeling bad about yourself - or that you are a failure or have let yourself or your family down: not at all 7. Trouble concentrating on things, such as reading the newspaper or watching television: not at all 8. Moving or speaking so slowly that other people could have noticed. Or the opposite - being so fidgety or restless that you have been moving around a lot more than usual: not at all 9. Thoughts that you would be better off or of hurting yourself in some way: not at all Total score: 1 Depression Screening Interpretation: Negative 62995 - PHQ-9 Billing: Yes Source: Developed by Drs. Orlando Forbes, Leah Yepez, Samuel Pelayo and colleagues, with an educational cuba from [email or web address]. Thrive Questionnaire Date Thrive assessed: 11/24/22 I am a: Patient What is your living situation today?: I have a steady place to live Within the past 12 months, did the food you bought not last and you didn't have the money to get more?: Never true Within the past 12 months, did you worry whether your food would run out before you got money to buy more?: Never true Do you have trouble paying for medicines?: No Do you have trouble getting transportation to medical appointments?: No Do you have trouble paying your heating and electricity bill?: No Do you have trouble taking care of your child, family member or friend?: No Do you have trouble with day-to-day activities such as bathing, preparing meals, shopping, managing finances, etc.?: No Are you currently unemployed and looking for a job?: No Are you interested in more education?: No AUDIT C Alcohol Use Questionnaire (AUDIT-C) 1. How often do you have a drink containing alcohol?: Never 3. How often do you have six or more drinks on one occasion?: Never Total Score: 0 CATIA-7 AMB Questionnaire CATIA-7 Date CATIA - 7 assessed: 11/24/22 Feeling nervous, anxious, or on edge: 0 = Not at all Not being able to stop or control worryin = Not at all Worrying too much about different things: 0 = Not at all Trouble relaxin = Not at all Being so restless that it is hard to sit still: 0 = Not at all Becoming easily annoyed or irritable: 0 = Not at all Feeling afraid as if something awful might happen: 0 = Not at all Total CATIA-7 score (0-4 normal; 5-9 mild; 10-14 moderate; 15-21 severe): 0 Source: Developed by Drs. Orlando Forbes, Leah Yepez, Samuel Pelayo and colleagues, with an educational cuba from [email or web address]. CATIA-7 Assessment Billing CATIA-7 Assessment Tool: CATIA-7 Assessment 09211 Review of Systems Const Denies excessive sweating, Denies fatigue, Denies frequent falls, Denies headache(s), Denies increased appetite, Denies lethargy and Denies weakness Eyes Denies change in vision ENT Reports Normal hearing present, Denies dizziness, Denies dry mouth, Denies headache(s), Denies hoarseness and Denies nasal congestion Card Denies chest pain, Denies leg edema, Denies palpitations and Denies dyspnea Resp Denies cough and Denies dyspnea GI Denies abdominal pain, Denies bloating, Denies change in bowel habits, Denies constipation, Denies early satiety, Denies diarrhea, Denies nausea and Denies vomiting Denies hematuria, Denies urinary frequency and Denies difficulty voiding Musc Denies back pain, Denies muscle cramps, Denies numbness and Denies tingling Neuro Reports Normal hearing present, Denies burning sensations, Denies dizziness, Denies frequent falls, Denies headache(s), Denies numbness, Denies Sensory deficit (Neuro), Denies tingling, Denies paresthesias, Denies tremor(s) and Denies weakness Endo Denies cold intolerance, Denies excessive sweating, Denies fatigue, Denies heat intolerance, Denies polyphagia, Denies polydipsia, Denies polyuria and Denies palpitations Chester/Lymph Denies easy bruising Aller/Immun Reports no additional complaints Physical exam (Primary Care) Vital Signs: Last Vital Signs Pulse 84 11/24/22 12:33 BP 122/60 11/24/22 12:33 Pulse Ox 95 11/24/22 12:33 Oxygen Delivery Method Room Air 11/24/22 12:33 BMI result Body Mass Index 31.8 Tobacco/Smoking Status: Tobacco use Status Tobacco use date assessed 11/24/22 11/24/22 12:35 Patient Tobacco Use Status Former Tobacco user 11/24/22 12:35 e-Cigarette/Vaping Use Never Used 11/24/22 12:35 Depression Screening Interpretation: Negative Thrive Assessment: Date of Thrive Assessment Date Thrive assessed 01/06/21 11/24/22 12:35 Const General: cooperative, healthy appearing, no acute distress and alert Orientation/consciousness: patient oriented x3 Limitations: no limitations [facility] Head: Yes normal to inspection, Yes normocephalic and Yes atraumatic Ears: hearing grossly normal bilaterally, external ears normal, TM's normal bilaterally and EAC's normal General nose exam: Normal external nose present, Normal nasal mucous membranes and turbinates present and No nasal discharge present Face and sinus: Yes normal facial exam, Yes sinuses nontender and Yes face symmetric Mouth: Normal oral and palatal mucosa present, oropharynx normal and moist mucous membranes Eyes Conjunctivae: conjunctivae normal Sclerae: sclerae normal Pupils: Equal, round and reactive pupils present EOM: EOMs intact bilaterally Neck Neck: Yes full ROM and Yes no lymphadenopathy Thyroid: Thyroid normal Lymphatic: no lymphadenopathy noted Resp Effort & Inspection: normal respiratory effort and able to speak in complete sentences Auscultation: clear to auscultation bilaterally Cardio Rhythm: abnormal rhythm irregularly irregular GI Inspection: Yes normal to inspection Palpation (GI): Soft to palpation Auscultation: normal bowel sounds General: Yes no CVA tenderness Back/Spine/Pelvis Back: no CVA tenderness and No back tenderness Skin General skin exam: no rashes or lesions noted Neuro General: patient oriented x3, gait normal, moves all extremities, no focal motor deficits and CN's II-XI intact bilaterally Cranial nerves: Yes Equal, round and reactive pupils present and Yes Normal hearing present Cognition (Neuro): normal cognition Gait exam (Neuro): Normal gait present Motor exam (neuro): 5/5 motor strength present throughout Sensory Exam: No Sensory deficit (Neuro) Extrem General: Yes normal to inspection, Yes full ROM, Yes no pedal edema and Yes normal gait Assessment and Plan Assessment & Plan (1) Multinodular thyroid: Code(s): E04.2 - Nontoxic multinodular goiter Plan: Thyroid ultrasound ordered, U with levothyroxine, TSH and free T4 also ordered (2) Vitamin D deficiency: Code(s): E55.9 - Vitamin D deficiency, unspecified Plan: Currently on a vitamin-D 3000 units daily, will repeat another vitamin-D level (3) Dyslipidemia: Code(s): E78.5 - Hyperlipidemia, unspecified Plan: Reviewed recent fasting lipid profile with patient with levels . Continue with 5 mg twice a week , in addition to adherence to low-cholesterol diet and regular exercise, at least 30 minutes 3 to 4 times a week. Advised patient to make healthy food choices, eat more fruits, vegetables, whole grains, wild caught fish and low-fat dairy. Limit amount of meat and fried or fatty food products, as well as processed foods and fast foods. Follow-up scheduled with repeat fasting lipid panel in 3 months. (4) Acquired hypothyroidism: Code(s): E03.9 - Hypothyroidism, unspecified (5) Hyperuricemia: Code(s): E79.0 - Hyperuricemia without signs of inflammatory arthritis and tophaceous disease Plan: Follow a low purine diet, recheck serum uric acid level Plan Continue levothyroxine, recheck TSH and free T4 Orders: Orders US thyroid Today E04.2 - Nontoxic multinodular goiter Alanine Aminotransferase Today E03.9 - Hypothyroidism, unspecified, E04.2 - Nontoxic multinodular goiter, E55.9 - Vitamin D deficiency, unspecified, E78.5 - Hyperlipidemia, unspecified Aspartate Amino Transferase Today E03.9 - Hypothyroidism, unspecified, E04.2 - Nontoxic multinodular goiter, E55.9 - Vitamin D deficiency, unspecified, E78.5 - Hyperlipidemia, unspecified Lipid Panel Today E03.9 - Hypothyroidism, unspecified, E04.2 - Nontoxic multinodular goiter, E55.9 - Vitamin D deficiency, unspecified, E78.5 - Hyperlipidemia, unspecified Free T4 (Free Thyroxine) 3 Months E03.9 - Hypothyroidism, unspecified, E04.2 - Nontoxic multinodular goiter, E55.9 - Vitamin D deficiency, unspecified, E78.5 - Hyperlipidemia, unspecified Thyroid Stimulating Hormone Today E03.9 - Hypothyroidism, unspecified, E04.2 - Nontoxic multinodular goiter, E55.9 - Vitamin D deficiency, unspecified, E78.5 - Hyperlipidemia, unspecified Uric Acid Today E03.9 - Hypothyroidism, unspecified, E04.2 - Nontoxic multinodular goiter, E55.9 - Vitamin D deficiency, unspecified, E78.5 - Hyperlipidemia, unspecified Vitamin D 25-OH Total Today E03.9 - Hypothyroidism, unspecified, E04.2 - Nontoxic multinodular goiter, E55.9 - Vitamin D deficiency, unspecified, E78.5 - Hyperlipidemia, unspecified Coding Level of Care Code Est Pt Level 4 (37540) Diagnoses Multinodular thyroid E04.2 Vitamin D deficiency E55.9 Dyslipidemia E78.5 Acquired hypothyroidism E03.9 Hyperuricemia E79.0 Additional Codes CATIA-7 Assessment Billing - CATIA-7 Assessment Tool: CATIA-7 Assessment 28036 ([id number])
[2022-11-24 12:33] VITALS: BP 122/60; PULSE 84; O2SAT 95; BMI 31.8
== END 2022-11-24 13:05 | disposition home or self-care (01) ==
PROVIDERS: Visit Provider Internal Medicine
DX: E04.2 Nontoxic multinodular goiter (principal); E55.9 Vitamin D deficiency, unspecified; E78.5 Hyperlipidemia, unspecified; E03.9 Hypothyroidism, unspecified; E79.0 Hyperuricemia without signs of inflammatory arthritis and tophaceous disease
CPT/HCPCS: 99214

== ENCOUNTER 2022-12-08 12:48 | Outpatient (REF) | payer MEDICARE, BC, SELFPAY ==
--- NOTE | ~2022-12-08 | US_ITS ---
EXAMINATION: US THYROID CLINICAL INFORMATION: Nontoxic multinodular goiter. Prior benign biopsy, left, 05/14/2021. COMPARISON: US-guided thyroid biopsy 05/22/2021. Ultrasound thyroid 11/14/2020. TECHNIQUE: Linear transducer cortes-scale and color Doppler examination with attention to the region of the thyroid. FINDINGS: SIZE: Measurements of the thyroid lobes and nodules are given in sagittal, anteroposterior and transverse dimensions respectively. Right Thyroid Lobe: 3.1 x 1.3 x 1.4 cm, volume 3.0 mL. Previously 2.8 x 0.9 x 1.4 cm, volume 1.8 mL. Parenchyma: The gland echotexture is homogeneous. Thyroid vascularity is normal. Left Thyroid Lobe: 4.4 x 1.5 x 1.8 cm, volume 6.2 mL. Previously 4.9 x 1.5 x 2.0 cm, volume 7.6 mL. Parenchyma: The gland echotexture is homogeneous. Thyroid vascularity is increased. Isthmus: 0.2 cm in maximum AP dimension. Previously 0.3 cm. Estimated total number of nodules greater than or equal to 1 cm: 2. Person Investigator nodules are described as follows: 1. Location: Left superior. It is uncertain whether this is a real nodule or simply heterogeneous tissue or a cluster of subcentimeter nodules. Size: 2.1 x 1.2 x 1.6 cm, volume 2.1 mL. Previously: Unable to compare. Nodule characteristics: Composition: Solid/almost completely solid (2). Echogenicity: Hyperechoic (1). Shape: Not taller than wide (0). Margins: Ill-defined (0). Echogenic Foci: None (0). ACR TI-RADS total points: 3 ACR TI-RADS category: 3 2. Location: Left inferior. Previously biopsied. Size: 2.2 x 1.2 x 2.3 cm, volume 3.2 mL. Previously: 3.2 x 1.5 x 2.2 cm, volume 5.7 mL. Nodule characteristics: Composition: Solid (2). Echogenicity: Hypoechoic (2). Shape: Not taller than wide (0). Margins: Smooth (0). Echogenic Foci: None (0). ACR TI-RADS total points: 4 Previous: 3 ACR TI-RADS category: 4 Previous: 3 Significant change in size (>/= 20% in 2 dimensions and minimal increase of 2 mm or 50% or greater increase in volume): Smaller Change in features: No Change in ACR TI-RADS risk category: Yes 3. Location: Right inferior. Size: 0.5 x 0.3 x 0.6 cm, volume 0.05 mL. Previously: Not documented on the previous study. Nodule characteristics: Composition: Solid (2). Echogenicity: Hypoechoic (2). Shape: Not taller than wide (0). Margins: Smooth (0). Echogenic Foci: None (0). ACR TI-RADS total points: 4 ACR TI-RADS category: 4 4. Location: Right mid. Size: 0.4 x 0.3 x 0.4 cm, volume 0.02 mL. Previously: 0.6 x 0.4 x 0.4 cm, volume 0.07 mL. Nodule characteristics: Composition: Solid (2). Echogenicity: Isoechoic (1). Shape: Not taller than wide (0). Margins: Smooth (0). Echogenic Foci: None (0). ACR TI-RADS total points: 3 Previous: 4 ACR TI-RADS category: 3 Previous: 4 Significant change in size (>/= 20% in 2 dimensions and minimal increase of 2 mm or 50% or greater increase in volume): Smaller Change in features: No Change in ACR TI-RADS risk category: Yes NODES: No lymphadenopathy is seen in the tissue surrounding the thyroid gland. US/US thyroid IMPRESSION: Interval decrease in size of now 2.3 cm nodule in the lower pole of the left lobe, previously biopsied 05/14/2021 and pathologically was benign. 2.1 cm left upper pole nodule TR 3. There is no comparable finding on the prior study. It uncertain whether this is a real nodule or simply heterogeneous tissue or cluster of subcentimeter nodules. Follow-up ultrasound in one year could be performed. ACR TI-RADS RECOMMENDATION REFERENCE: Ultrasound-guided fine-needle aspiration, follow up ultrasound, no further followup. * TR1 (0 point) and TR2 (2 points): No FNA or followup * TR3 (3 points): FNA if more than or equal to 2.5 cm in maximum dimension, follow up ultrasound in 1, 3 and 5 years if 1.5 to 2.4 cm in maximum dimension. * TR4 (4-6 points): FNA if more than or equal to 1.5 cm in maximum dimension, follow up ultrasound in 1, 2, 3 and 5 years if 1 to 1.4 cm in maximum dimension. * TR5 (more than or equal to 7 points): FNA if more than or equal to 1 cm in maximum dimension, follow up ultrasound every year for 5 years if 0.5 to 0.9 cm in maximum dimension. * TR3, TR4 or TR5 nodules that are below the size threshold for follow up receive no followup.
== END 2022-12-08 12:49 | disposition home or self-care (01) ==
LOC: HO.US 12:48
PROVIDERS: PCP Internal Medicine; Visit Provider Internal Medicine
DX: E04.2 Nontoxic multinodular goiter (principal)
CPT/HCPCS: 76536

== ENCOUNTER 2022-12-14 07:43 | Outpatient (REF) | payer MEDICARE, BC, SELFPAY ==
[2022-12-14 11:18] LABS: Alanine Aminotransferase 12 U/L (0-31); Aspartate Amino Transferase 15 U/L (5-31); Cholesterol 175 mg/dL (<200); HDL Cholesterol 55 mg/dL (>40); LDL Cholesterol Calculated 98 mg/dL (<100); Triglycerides 113 mg/dL (<150); Uric Acid 5.7 mg/dL (2.4-5.7)
[2022-12-14 11:21] LABS: Free T4 (Free Thyroxine) 1.14 ng/dL (0.71-1.85); Thyroid Stimulating Hormone 2.08 uIU/mL (0.32-4.0)
== END 2022-12-14 07:44 | disposition home or self-care (01) ==
LOC: HO.10HDL 07:43
PROVIDERS: Visit Provider Internal Medicine
DX: E55.9 Vitamin D deficiency, unspecified (principal); E04.2 Nontoxic multinodular goiter; E78.5 Hyperlipidemia, unspecified; E03.9 Hypothyroidism, unspecified
CPT/HCPCS: 36415; 80061; 82306; 84439; 84443; 84450; 84460; 84550

== ENCOUNTER 2022-12-17 08:17 | Outpatient (AMB) | payer MEDICARE, BC, SELFPAY ==
--- NOTE | 2022-12-17 08:18 | AM.OFFVISMDC ---
Intake Vital Signs 12/17/22 08:22 Height 5 ft 2 in Weight 172 lb BMI 31.5 BP 126/70 Blood Pressure Location Rt brachial Position Sitting Pulse 82 Pulse Source Pulse Oximeter Pulse Oximetry (%) 98 Intake Visit Reasons: SWV G4039 Intake Note: pt is here for medicare wellness visit, patient states she would to request to have colonoscopy done due to blood in stool, patients last mammo and bone desinty was 2020 Pulmonary Nurse Practitioner Required: No Allergies tetracycline [TETRACYCLINE] Allergy (Unknown, Verified 12/17/22 09:02) ITCHINESS, rash nitrofurantoin Allergy (Verified 12/17/22 09:02) Swelling atorvastatin [Lipitor] Adverse Reaction (Unknown, Verified 12/17/22 09:02) Muscle pain bactrim Allergy (Unknown, Uncoded 12/17/22 09:02) Elevated LFTs/Itching/Nausea fentanyl Adverse Reaction (Severe, Uncoded 12/17/22 09:09) Unconscious Medication List - Last Reconciled 12/17/22 by Kala Lundberg MD albuterol sulfate 90 mcg/actuation 2 puffs inhalation Q6H PRN apixaban (Eliquis) 5 mg PO BID calcium citrate 500 mg (2 x 250 mg calcium) PO BID 90 days cholecalciferol (vitamin D3) 25 mcg PO DAILY 90 days diltiazem HCl 180 mg PO QAM flecainide 75 mg PO Q12H levothyroxine 75 mcg PO DAILY rosuvastatin 5 mg PO 2XW 90 days HPI SWV G4039 HPI Details SWV ? 77 year old lady, presents today for her subsequent annual wellness visit . She has paroxysmal atrial fibrillation currently on Eliquis, followed by cardiology. Has dyslipidemia, chronic kidney disease stage 3, acquired hypothyroidism and multinodular thyroid followed by [facility], has mixed stress and urge incontinence. She has osteoporosis, followed previously by Dr. Yuan placed on Prolia but patient declined further infusion. No history of any fracture. She is overdue for her screening mammogram and repeat bone density scan, ordered today. She had a screening colonoscopy done in [facility] in [address] Koenig which showed presence of sigmoid diverticulosis and external hemorrhoids. She was supposed to have it repeated in 5 years, states that she did go but developed a reaction to fentanyl and had to be given Narcan twice, unsure whether procedure was done at that time. Has been experiencing intermittent episodes of bright red blood per rectum after defecation. She had a normal fasting lipid panel and fasting blood sugar screening done earlier this year. She has had her COVID vaccines in bivalent booster, has not had her recent COVID booster yet, has had Prevnar 13 and Pneumovax 23 in the past, due for Prevnar 20. He is up-to-date with her shingles vaccine Tdap and gets yearly flu shots. ? Medical / Social History Reviewed? Past Medical History ?Yes . ? [place] of Care / Care Team list updated ?Yes . ? Surgical/Hospitalization History ?Yes . ? Current Medications (including OTC and supplements) ?Yes . ? Family History ?Yes . ? Tobacco Control form ?Yes . ? AUDIT-C (Alcohol use) form ?Yes . ? Illicit drug use in Social History ?Yes . ? Current diagnosis of depression? ?No ? Appropriate PHQ2/PHQ9 completed ?Yes . ? Data entered by ?[employer] and reviewed by provider ? Fall Risk ? Fall History? Have you had any falls with injury in the past year? ?No . ? Have you had two or more falls in the past year? ?No . ? Fall Risk Assessment: ?No falls in the past year . ? HRA filled out by the patient, reviewed by Provider and scanned. ?SWV ? Balance? Romberg ?Yes . ? Tandem walk ?Yes . ? Walk and Turn ?Yes . ? Rise from sit to stand ?Yes . ?Vision? Corrective lens ?Yes ? Vision screen-previous see seen by Dr. Chiu, now will be going appointment with [facility] in [facility] ? Whisper test ?pass . ?Written Plan?Completed. See Patient Documents.? [facility] Medical History (Updated 12/17/22 @ 09:40 by Kala Lundberg MD) Acquired hypothyroidism Chronic kidney disease, stage 3 COPD (chronic obstructive pulmonary disease) Current use of enterprise solutions architect anticoagulation Dyslipidemia External hemorrhoids Hyperuricemia Impaired fasting glucose Inflammatory arthritis Mixed stress and urge urinary incontinence Multinodular thyroid Osteoporosis Paroxysmal atrial fibrillation Vitamin D deficiency Surgical History History of section Hx of colonoscopy S/P partial hysterectomy Family History Father CVA (cerebral vascular accident) AAA (abdominal aortic aneurysm) Mother Diabetes mellitus HTN (hypertension) Sister Diabetes mellitus Son Substance use disorder Son Substance use disorder Social History Household Members: Children Housing: Unknown / Unable to assess Alcohol intake: current Alcohol intake frequency: holidays/special occasions only Patient Tobacco Use Status: Former Tobacco user Years Smoked: 20 years e-Cigarette/Vaping Use: Never Used Current occupational status: retired Cognitive needs: No Hearing needs: No Vision needs: Yes Questionnaire Medicare Wellness Checkup [age] What gender do you identify with?: female During the past 4 weeks, how much have you been bothered by emotional problems such as feeling anxious, depressed, irritable, sad or downhearted, and blue?: not at all During the past 4 weeks, has your physical & emotional health limited your social activities with family, friends, neighbors, or groups?: slightly During the past 4 weeks, how much bodily pain have you generally had?: very mild pain During the past 4 weeks, was someone available to help you if you needed & wanted help?: yes, quite a bit During the past 4 weeks, what was the hardest physical activity you could do for at least 2 minutes?: moderate Can you get to places out of walking distance without help? (For eg., can you travel alone on buses, taxis or drive your car?): Yes Can you go shopping for groceries or clothes without someone's help?: Yes Can you do your housework without help?: No Because of any health problems, do you need the help of another person with your personal care needs such as eating, bathing, dressing or getting around the house?: No Can you handle your own money without help?: Yes During the past 4 weeks, how would you rate your health in general?: good During the past 4 weeks how have things been going for you?: good & bad parts about equal Are you having difficulties driving your car?: no Do you always fasten your seat belt when you are in a car?: yes, usually During past 4 weeks, have you been bothered by the following: never: Falling or dizzy when standing up, Sexual problems? and Trouble eating well?, seldom: Problems using the telephone? and sometimes: Teeth or denture problems? and Tiredness or fatigue? Have you fallen 2 or more times in the past year?: No Are you afraid of falling?: Yes Are you a smoker?: no During the past 4 weeks, how many drinks of wine, beer, or other alcoholic beverages did you have?: no alcohol at all Do you exercise for about 20 minutes 3 or more times a week?: yes, most of the time Have you been given information to help with the following?: yes: Hazards in your house that might hurt you? and yes: Keeping track of your medications? How often do you have trouble taking medicines the way you have been told to take them?: I always take medicine as prescribed How confident are you that you can control & manage most of your health problems?: somewhat confident What is your race?: White Mini Mental State Exam (MMSE) Orientation What is the (year) (season) (date) (day) (month)?: year (2022), season (Summer), date (12/17/2022), day (Tuesday) and month (November) Where are we (state) (county) (town or city) (hospital) (floor)?: state ([place]), county ([place]), town or city ([place]) and hospital/clinic ([facility]) Score Score: 9 Activity of Daily Living Bathing - sponge bath, tub bath or shower: receives no assistance (gets in/out by self, if usual bathing means Dressing - getting clothes from closets & drawers, including inner/outer garments & fasteners.: gets clothes & gets completely dressed without help Toileting - going to the 'toilet room' for urine/bowel elimination & cleaning self/arranging clothes: goes to toilet room, cleans self, arranges clothes without help Transfer: moves in & out of bed and chair without help (may use support object) Continence: has occasional 'accidents' Feeding: feeds self without help Total Score: 0 Information obtained from: patient Using telephone: independent Traveling: independent Shopping: independent Preparing meals: independent Housework: independent Taking medicine: independent Managing money: independent PHQ-9 Over the last 2 weeks, how often have you been bothered by any of the following problems? 1. Little interest or pleasure in doing things: several days 2. Feeling down, depressed, or hopeless: not at all 3. Trouble falling or staying asleep, or sleeping too much: not at all 4. Feeling tired or having little energy: several days 5. Poor appetite or overeating: not at all 6. Feeling bad about yourself - or that you are a failure or have let yourself or your family down: several days 7. Trouble concentrating on things, such as reading the newspaper or watching television: not at all 8. Moving or speaking so slowly that other people could have noticed. Or the opposite - being so fidgety or restless that you have been moving around a lot more than usual: not at all 9. Thoughts that you would be better off or of hurting yourself in some way: not at all Total score: 3 Depression Screening Interpretation: Negative 12894 - PHQ-9 Billing: Yes Source: Developed by Drs. Orlando Forbes, Leah Yepez, Samuel Pelayo and colleagues, with an educational cuba from [employer]. Physical Exam Vital Signs: Last Vital Signs Pulse 82 12/17/22 08:22 BP 126/70 12/17/22 08:22 Pulse Ox 98 12/17/22 08:22 BMI result Body Mass Index 31.5 Immunizations pneumoc 20-nusrat conj-dip cr(PF) Performing Provider: Kala Lundberg MD Administered by: Forest Bor CMA on 12/17/22 09:38 Dose Route Admin Location Lot Number Expiration Date NDC [employer] 0.5 mL IM Right Deltoid [id number] 02/23/24 0221-7507-74 [employer] VIS Given Date VIS Provided VIS Publication Date 12/17/22 Single Vaccine 21 Eligibility Eligibility Date Funding Source Not VF Eligible 12/17/22 Private Assessment & Plan Assessment & Plan (1) Encounter for subsequent annual wellness visit (AWV) in Medicare patient: Code(s): Z00.00 - Encounter for general adult medical examination without abnormal findings Plan: Medical wellness checklist reviewed this patient discussed and updated. Prevnar 20 given today, advised to get RSV, yearly flu shot and the new COVID booster that is coming up. Referred to Has son for her colonoscopy. Ordered a screening mammogram and repeat bone density scan. She also was referred to [facility] for her routine eye exam, patient states she will schedule own appointment. Healthcare proxy and MOLST already completed and scanned into chart (2) External hemorrhoids: Code(s): K64.4 - Residual hemorrhoidal skin tags Plan: Has occasional bright red blood per rectum after defecation, referred to [facility] for her colonoscopy (3) Colon cancer screening: Code(s): Z12.11 - Encounter for screening for malignant neoplasm of colon Plan: Referred to Dr. Chung for her screening colonoscopy (4) Osteoporosis: Code(s): M81.0 - Age-related osteoporosis without current pathological fracture Qualifiers: Osteoporosis type: age-related Presence of current pathological fracture: without current pathological fracture Qualified Code(s): M81.0 - Age-related osteoporosis without current pathological fracture Plan: Previously was being seen by Dr. Yuan and placed on Prolia which patient did not like to continue taking, repeat bone density scan, continue vitamin D3 at 2000 units daily and calcium supplements, as well as regular weight-bearing exercise (5) Mixed stress and urge urinary incontinence: Code(s): N39.46 - Mixed incontinence (6) Paroxysmal atrial fibrillation: Comment: Followed by Dr. Mendoza Code(s): I48.0 - Paroxysmal atrial fibrillation Plan: Currently on Eliquis flecainide, diltiazem, followed by cardiology (7) Dyslipidemia: Code(s): E78.5 - Hyperlipidemia, unspecified Plan: Continue with rosuvastatin 5 mg twice a week (8) Chronic kidney disease, stage 3: Code(s): N18.30 - Chronic kidney disease, stage 3 unspecified (9) COPD (chronic obstructive pulmonary disease): Comment: Currently asymptomatic , not on any inhalers Code(s): J44.9 - Chronic obstructive pulmonary disease, unspecified Qualifiers: COPD type: unspecified COPD Qualified Code(s): J44.9 - Chronic obstructive pulmonary disease, unspecified Plan: Uses albuterol inhaler as needed (10) Acquired hypothyroidism: Code(s): E03.9 - Hypothyroidism, unspecified Plan: Continue with levothyroxine 75 mcg daily (11) Current use of enterprise solutions architect anticoagulation: Code(s): Z79.01 - [facility] (current) use of anticoagulants Plan: Currently on apixaban Orders: Orders XR DEXA axial skeleton Today M81.0 - Age-related osteoporosis without current pathological fracture, Z12.31 - Encounter for screening mammogram for malignant neoplasm of breast MM screening mammo BI Today M81.0 - Age-related osteoporosis without current pathological fracture, Z12.31 - Encounter for screening mammogram for malignant neoplasm of breast Pneumococcal 20 Immunization Today Z23 - Encounter for immunization Referrals Gastroenterology Referral K64.4 - Residual hemorrhoidal skin tags, Z12.11 - Encounter for screening for malignant neoplasm of colon Quality Reporting (2019) Depression/Bipolar (159/160/161/177) PHQ-9: Total score: 3 Coding Level of Care Code Medicare Subsequent (G0439) Diagnoses Encounter for subsequent annual wellness visit (AWV) in Medicare patient Z00.00 External hemorrhoids K64.4 Colon cancer screening Z12.11 Osteoporosis M81.0 Osteoporosis type: age-related Presence of current pathological fracture: without current pathological fracture Mixed stress and urge urinary incontinence N39.46 Paroxysmal atrial fibrillation I48.0 Dyslipidemia E78.5 Chronic kidney disease, stage 3 N18.30 COPD (chronic obstructive pulmonary disease) J44.9 COPD type: unspecified COPD Acquired hypothyroidism E03.9 Current use of fdc anticoagulation Z79.01 CPT Codes Advance Care Planning - Advance Care Planning discussion: On file, no changes ([id number]) Advance Care Planning - Time spent: 1-15 minutes, on File ([id number]) Advance Care Planning Advance Care Planning discussion: On file, no changes Date of discussion: 12/17/22 Who was present: patient Forms completed: Health Care Proxy and MOLST Time spent: 1-15 minutes, on File Actual minutes spent: 15
[2022-12-17 08:22] VITALS: BP 126/70; PULSE 82; O2SAT 98; BMI 31.5
== END 2022-12-17 10:27 | disposition home or self-care (01) ==
PROVIDERS: Visit Provider Internal Medicine
DX: Z00.00 Encounter for general adult medical examination without abnormal findings (principal); J44.9 Chronic obstructive pulmonary disease, unspecified; Z79.01 Long term (current) use of anticoagulants; Z23 Encounter for immunization; I48.0 Paroxysmal atrial fibrillation; N18.30 Chronic kidney disease, stage 3 unspecified; K64.4 Residual hemorrhoidal skin tags; Z12.11 Encounter for screening for malignant neoplasm of colon; M81.0 Age-related osteoporosis without current pathological fracture; E03.9 Hypothyroidism, unspecified; N39.46 Mixed incontinence; E78.5 Hyperlipidemia, unspecified
CPT/HCPCS: 1123F; 90471; 90677; G0439

== ENCOUNTER 2023-01-25 13:25 | Outpatient (REF) | payer MEDICARE, BC, SELFPAY ==
--- NOTE | ~2023-01-25 | MM_ITS ---
EXAMINATION: MM SCREENING DIGITAL BREAST TOMOSYNTHESIS, BILATERAL CLINICAL INFORMATION: Screening. Asymptomatic. COMPARISON: Mammography: This study is compared with prior exams dating back to 2017. TECHNIQUE: Digital breast tomosynthesis is performed in both the craniocaudal and mediolateral oblique views along with computer-aided detection (CAD). Synthesized 2D images are generated from the tomosynthesis. FINDINGS: The breasts are almost entirely fatty (ACR BI-RADS breast composition Category a). There are no significant masses, abnormal calcifications, or other abnormalities. There are benign calcifications at the lower inner quadrant of the left breast. MM/MM tomosynthesis screening BI IMPRESSION: No mammographic evidence of malignancy. ASSESSMENT: BI-RADS BI-RADS 2 - Benign Findings RECOMMENDATION: Routine annual mammography screening. 1 year F/U This examination should not preclude the clinical evaluation of a suspicious palpable abnormality. This patient's information was entered into a reminder system with a target due date for their next mammogram.
== END 2023-01-25 13:26 | disposition home or self-care (01) ==
LOC: HO.MAMMO 13:25
PROVIDERS: PCP Internal Medicine; Visit Provider Internal Medicine
DX: Z12.31 Encounter for screening mammogram for malignant neoplasm of breast (principal); Z13.820 Encounter for screening for osteoporosis; Z78.0 Asymptomatic menopausal state; M81.0 Age-related osteoporosis without current pathological fracture
CPT/HCPCS: 77063; 77067; 77080

== ENCOUNTER → 2023-01-25 13:45 | Outpatient (BNV) | payer MEDICARE, BC, SELFPAY | PROVIDERS: PCP Internal Medicine; Visit Provider Radiology Diagnostic Radiology | DX: Z12.31 Encounter for screening mammogram for malignant neoplasm of breast (principal) | CPT/HCPCS: 77063; 77067 ==

== ENCOUNTER → 2023-02-23 08:28 | Outpatient (BNVA) | payer MEDICARE, BC, SELFPAY | PROVIDERS: PCP Internal Medicine; Visit Provider Nurse Practitioner Family ==

== ENCOUNTER 2023-03-06 22:52 | Observation (INO) | payer MEDICARE, BC, SELFPAY ==
[2023-03-06 22:54] VITALS: BP 177/69; PULSE 81; RESP 18; TEMP 36.3; O2SAT 97; BMI 31.5
--- NOTE | 2023-03-06 22:57 | ECG_ITS ---
Test Reason : GI BLEED Blood Pressure : / mmHG Vent. Rate : 068 BPM Atrial Rate : 068 BPM P-R Int : 200 ms QRS Dur : 088 ms QT Int : 414 ms P-R-T Axes : 045 056 073 degrees QTc Int : 440 ms Normal sinus rhythm Nonspecific ST abnormality Lateral leads Abnormal ECG When compared with ECG of 29-APR-2016 10:15, Nonspecific ST abnormality is new Referred By: Generic ED Physician Electronically Signed By:ELISABET ANAYA MD
[2023-03-06 23:18] LABS: MANUAL DIFF FLAG NO
[2023-03-06 23:20] LABS: Basophils Absolute Auto 0.1 X10*3/uL (0.0-0.2); Basophils Percent Auto 0.9 % (0-2); Eosinophils Absolute Auto 0.4 X10*3/uL (0.0-0.4); Hematocrit 46.6 % (37.0-47.0); Hemoglobin 15.4 g/dl (12.0-16.0); Imm Gran Abs Auto 0.03 X10*3/uL (0.00-0.03); Imm Gran Pct Auto 0.3 % (0.0-0.4); Mean Corpuscular Hemoglobin 31.4 pg (27.0-33.0); Mean Corpuscular Volume 94.9 fL (80.0-98.0); Mean Platelet Volume 8.8 fL (9.4-12.3); Monocytes Absolute Auto 0.8 X10*3/uL (0.1-1.2); Monocytes Percent Auto 8.7 % (2-11); Neutrophils Absolute Auto 5.5 x10*3/uL (2.0-8.3); Neutrophils Percent Auto 63.1 % (45-73); Platelet Count 196 X10*3/uL (160-400); Red Blood Count 4.91 X10*6/uL (4.20-5.50); Red Cell Distribution Width 12.3 % (11.0-16.0); White Blood Count 8.8 X10*3/uL (4.8-10.8)
[2023-03-06 23:33] LABS: Alanine Aminotransferase 14 U/L (0-31); Alkaline Phosphatase 130 U/L (39-117); Anion Gap 12 (12-20); Aspartate Amino Transferase 16 U/L (5-31); Bilirubin Total 0.6 mg/dL (0.0-1.0); Blood Urea Nitrogen 10 mg/dL (9-16); Calcium 9.4 mg/dL (8.4-10.2); Carbon Dioxide 25 mmol/L (22-29); Chloride 98 mmol/L (96-108); Creatinine Clr Calc Pharmacy 56.8; Estimated Glomerular Filt Rate > 60; Glucose Random 110 mg/dL (60-115); Sodium 131 mmol/L (135-145); Total Protein 7.7 g/dL (6.5-8.0)
--- NOTE | 2023-03-07 00:38 | ED.GIBLEED ---
HPI - GI Bleed General Chief complaint: GI Bleed Stated complaint: Rectal bleeding, hypertension Time Seen by Provider: 03/07/23 00:21 Source: patient Mode of arrival: ambulatory Limitations: no limitations History of Present Illness HPI Narrative: 77-year-old female came into the emergency department for evaluation of bright red blood per rectum for the past week that is progressively getting worse over the past couple days now it is bright red blood from the rectum. Patient is taking Eliquis for AFib. No CP, no SOB, no dizziness. No abdominal pain, no nausea, no vomiting. Related Data Home Medications Medication Instructions Recorded Confirmed apixaban 5 mg tablet (Eliquis) 5 mg PO BID 05/05/20 12/17/22 diltiazem HCl 120 mg 180 mg PO QAM 11/28/21 12/17/22 capsule,extended release 24 hr flecainide 50 mg tablet 75 mg PO Q12H 09/09/22 12/17/22 Previous Rx's Medication Instructions Recorded calcium citrate 500 mg (2 x 250 mg calcium) PO BID 11/04/20 90 days #360 tabs cholecalciferol (vitamin D3) 25 25 mcg PO DAILY 90 days #90 caps 11/04/20 mcg (1,000 unit) capsule levothyroxine 75 mcg tablet 75 mcg PO DAILY #90 caps 08/24/22 rosuvastatin 5 mg tablet 5 mg PO 2XW 90 days #26 tabs 11/12/22 albuterol sulfate 90 mcg/actuation 2 puff inhalation Q6H PRN 01/21/23 aerosol inhaler shortness of breath or wheezing #8.5 grams bisacodyl 5 mg tablet,delayed 10 mg (2 x 5 mg) PO ONCE 1 day #2 02/23/23 release (Dulcolax (bisacodyl)) tabs polyethylene glycol 3350 17 238 g PO ONCE #238 grams 02/23/23 gram/dose oral powder (Miralax) Allergies Allergy/AdvReac Type Severity Reaction Status Date / Time tetracycline [TETRACYCLINE] Allergy Unknown ITCHINESS, Verified 02/23/23 08:34 rash nitrofurantoin Allergy Swelling Verified 02/23/23 08:34 atorvastatin [Lipitor] AdvReac Unknown Muscle pain Verified 02/23/23 08:34 bactrim Allergy Unknown Elevated Uncoded 02/23/23 08:34 LFTs/Itching/Nausea fentanyl AdvReac Severe Unconscious Uncoded 02/23/23 08:34 Review of Systems Review of Systems: All other systems are reviewed and are negative Constitutional: Reports as per HPI and Reports no additional constitutional complaints Eyes: Reports as per HPI and Reports no additional eye complaints Reports system reviewed and no additional complaints, except as documented Cardiovascular: Reports as per HPI and Reports no additional cardiovascular complaints Respiratory: Reports as per HPI and Reports no additional respiratory complaints Gastrointestinal: Reports as per HPI and Reports no additional gastrointestinal complaints Genitourinary: Reports no additional female genitourinary complaints Musculoskeletal: Reports no additional musculoskeletal complaints Skin/Breast: Reports system reviewed and no additional complaints, except as docu Psychiatric: Reports no additional psychiatric complaints Endocrine: Reports no additional endocrine complaints Hematologic/Lymphatic: Reports no additional hematologic/lymphatic complaints Allergic/Immunologic: Reports no additional allergic/immunologic complaints Reports system reviewed and no additional complaints, except as documented and Reports Abnormal speech present [facility] Past Medical History Medical History Current use of penitentiary anticoagulation External hemorrhoids Hyperuricemia Vitamin D deficiency Impaired fasting glucose Inflammatory arthritis Multinodular thyroid Mixed stress and urge urinary incontinence Dyslipidemia Paroxysmal atrial fibrillation Chronic kidney disease, stage 3 Osteoporosis COPD (chronic obstructive pulmonary disease) Acquired hypothyroidism Surgical History Hx of colonoscopy S/P partial hysterectomy History of section Family History Family History Father CVA (cerebral vascular accident) AAA (abdominal aortic aneurysm) Mother Diabetes mellitus HTN (hypertension) Sister Diabetes mellitus Son Substance use disorder Son Substance use disorder Social History Social History Household Members: Children Housing: Unknown / Unable to assess Alcohol intake: current Alcohol intake frequency: holidays/special occasions only Patient Tobacco Use Status: Former Tobacco user Years Smoked: 20 years Smoked in Last 30 Days: No e-Cigarette/Vaping Use: Never Used Use of substances other than those prescribed or required for medical reasons: No Advance Directives: No Advance Directives Information Provided: Yes Nutrition Risks: No Nutritional Risk Current occupational status: retired Cognitive needs: No Hearing needs: No Vision needs: Yes Physical Exam Vital Signs: Vital Signs: Last Vital Signs Temp 98.0 F 03/07/23 02:44 Pulse 69 03/07/23 02:44 Resp 16 03/07/23 02:44 BP 123/60 03/07/23 02:44 Pulse Ox 96 03/07/23 02:44 O2 Del Method Room Air 03/07/23 02:44 BMI result Body Mass Index 31.5 Vital signs have been reviewed and appear to be correct. Blood pressure elevated. Heart rate normal. Respiratory rate normal. Temperature normal. Oxygen saturation normal. Appearance: Alert. Oriented X3. No acute distress. Head: Normal external exam. Normocephalic. Atraumatic. No Mohan signs noted. No raccoon eyes noted Eyes: PERRLA. EOMI. Conjunctiva and sclera normal. Eyelids normal. ENT: TM's Normal. Pharynx normal. Uvula midline. Moist mucous membranes. No trismus noted. No drooling noted. No muffled voice noted. Neck: Normal inspection. Neck supple. FROM. No adenopathy. Thyroid Normal. No meningeal signs. No neck mass noted. CVS: Normal heart rate and rhythm. Heart sound normal. No murmurs noted. Pulses normal throughout. Respiratory: No respiratory distress. Painless inspiration. Breath sounds normal. No wheezes/rales/rhonchi noted. Chest nontender. No accessory muscle usage noted or decreased air movement noted. Abdomen: Soft and nontender. Bowel sounds normal in all 4 quadrants. No distention noted. No organomegaly noted. No visible injury noted. Rectum: Bright red blood from the rectum, 1 internal hemorrhoid at 09:00 o'clock Back: No CVA tenderness. Full range of motion noted. Skin: Skin warm and dry. Normal skin color. Normal skin turgor. No rashes/lesions/lacerations noted. Extremities: No lower extremity edema. Extremities exhibit normal range of motion. Extremities nontender. Neuro: Oriented X 3. Cranial nerve exam: II-XII are grossly intact No motor deficit. No sensory deficit. Reflexes normal. Course Reevaluation(s) Reevaluation #1: hemodynamically stable, GI bleed on Eliquis will admit for monitoring and serial CBC and GI evaluation in the morning. Time: 00:43 Medications Administered Discontinued Medications Generic Name Dose Route Start Last Admin Trade Name Taylor PRN Reason Stop Dose Admin Sodium Chloride 1,000 mls @ 999 mls/hr 03/07/23 01:16 03/07/23 02:34 Ns IV 03/07/23 02:16 Infused .Q1H1M ONE Infusion Medical Decision Making Differential Diagnosis Differential Diagnoses: The differential diagnosis associated with the presentation includes ( Severe anemia, hemodynamic instability, electrolytes abnormality, coagulopathy.) Admission/Observation Consideration of admission/observation: Escalation of care including admission/observation considered Consult Healthcare Provider Management of the patient was discussed with: Hospitalist ( Dr. Leyva) Lab Data MDM Lab Attestation statement: I reviewed the patient's lab results. 03/06/23 23:09 03/06/23 23:09 Labs: Lab Results 03/06/23 Range/Units 23:09 WBC 8.8 (4.8-10.8) X10*3/uL RBC 4.91 (4.20-5.50) X10*6/uL Hgb 15.4 (12.0-16.0) g/dl Hct 46.6 (37.0-47.0) % MCV 94.9 (80.0-98.0) fL MCH 31.4 (27.0-33.0) pg MCHC 33.0 (31.0-35.0) g/dl RDW 12.3 (11.0-16.0) % Plt Count 196 (160-400) X10*3/uL MPV 8.8 L (9.4-12.3) fL Immature Gran % (Auto) 0.3 (0.0-0.4) % Neut % (Auto) 63.1 (45-73) % Lymph % (Auto) 23.0 (20-40) % [place] % (Auto) 8.7 (2-11) % Eos % (Auto) 4.0 (0-4) % Baso % (Auto) 0.9 (0-2) % Lymph # (Auto) 2.0 (1.2-4.9) X10*3/uL [place] # (Auto) 0.8 (0.1-1.2) X10*3/uL Eos # (Auto) 0.4 (0.0-0.4) X10*3/uL Baso # (Auto) 0.1 (0.0-0.2) X10*3/uL Abs Immat Gran (auto) 0.03 (0.00-0.03) X10*3/uL Absolute Neuts (auto) 5.5 (2.0-8.3) x10*3/uL Absolute Nucleated RBC 0.000 (0.0-0.012) X10*3/uL Nucleated RBC % (auto) 0.0 (0.0-0.2) /100WBC Sodium 131 L (135-145) mmol/L Potassium 4.0 (3.3-5.1) mmol/L Chloride 98 (96-108) mmol/L Carbon Dioxide 25 (22-29) mmol/L Anion Gap 12 (12-20) BUN 10 (9-16) mg/dL Creatinine 0.82 (0.5-1.4) mg/dL Estim Creat Clear Calc 56.8 Estimated GFR > 60 Random Glucose 110 (60-115) mg/dL Calcium 9.4 D (8.4-10.2) mg/dL Total Bilirubin 0.6 (0.0-1.0) mg/dL AST 16 (5-31) U/L ALT 14 (0-31) U/L Alkaline Phosphatase 130 H (39-117) U/L Total Protein 7.7 (6.5-8.0) g/dL Albumin 4.0 (3.5-5.0) g/dL Discharge Plan Discharge Clinical Impression: BRBPR (bright red blood per rectum) Patient Disposition: Admitted As Inpatient
--- NOTE | 2023-03-07 01:16 | PM.IMHP ---
History of Present Illness Date of Service: 03/07/23 Chief Complaint: Bright red blood This is a 77-year-old female with pertinent history of atrial fibrillation on Eliquis, hypothyroidism, mixed hyperlipidemia who presents to the emergency department for evaluation of bright red blood per rectum. Patient states she has been having bright red blood per rectum on tissue paper for the last 7 days. Over the last 2 days, it has progressed to painless gushing of blood from rectum. No abdominal pain. No fevers or chills. No similar history in the past. Patient states her last colonoscopy was more than 20 years ago. No chest discomfort, palpitations, shortness of breath, changes in urinary habits. In the emergency department, stool occult blood positive. 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 External hemorrhoids Hyperuricemia Vitamin D deficiency Impaired fasting glucose Inflammatory arthritis Multinodular thyroid Mixed stress and urge urinary incontinence Dyslipidemia Paroxysmal atrial fibrillation Chronic kidney disease, stage 3 Osteoporosis COPD (chronic obstructive pulmonary disease) Acquired hypothyroidism Family History Father CVA (cerebral vascular accident) AAA (abdominal aortic aneurysm) Mother Diabetes mellitus HTN (hypertension) Sister Diabetes mellitus Son Substance use disorder Son Substance use disorder Surgical History Hx of colonoscopy S/P partial hysterectomy History of section Social History Household Members: Children Housing: Unknown / Unable to assess Alcohol intake: current Alcohol intake frequency: holidays/special occasions only Patient Tobacco Use Status: Former Tobacco user Years Smoked: 20 years Smoked in Last 30 Days: No e-Cigarette/Vaping Use: Never Used Use of substances other than those prescribed or required for medical reasons: No Advance Directives: No Advance Directives Information Provided: Yes Nutrition Risks: No Nutritional Risk Current occupational status: retired Cognitive needs: No Hearing needs: No Vision needs: Yes Meds Allergies Allergy/AdvReac Type Severity Reaction Status Date / Time tetracycline [TETRACYCLINE] Allergy Unknown ITCHINESS, Verified 02/23/23 08:34 rash nitrofurantoin Allergy Swelling Verified 02/23/23 08:34 atorvastatin [Lipitor] AdvReac Unknown Muscle pain Verified 02/23/23 08:34 bactrim Allergy Unknown Elevated Uncoded 02/23/23 08:34 LFTs/Itching/Nausea fentanyl AdvReac Severe Unconscious Uncoded 02/23/23 08:34 Home Medications Medication Instructions Recorded Confirmed Last Taken Type apixaban 5 mg tablet (Eliquis) 5 mg PO BID 05/05/20 12/17/22 Unknown History diltiazem HCl 120 mg 180 mg PO QAM 11/28/21 12/17/22 Unknown History capsule,extended release 24 hr flecainide 50 mg tablet 75 mg PO Q12H 09/09/22 12/17/22 Unknown History Physical Exam Vital Signs and Narrative: Vital Signs: Last Vital Signs Temp 97.3 F 03/06/23 22:54 Pulse 81 03/06/23 22:54 Resp 18 03/06/23 22:54 BP 177/69 H 03/06/23 22:54 Pulse Ox 97 03/06/23 22:54 O2 Del Method Room Air 03/06/23 22:54 BMI result Body Mass Index 31.5 Elderly female lying in bed in no distress Neck supple, no JVD Regular rate and rhythm, S1-S2 heard Regular breath sounds bilaterally, no wheezing or crackles appreciated Abdomen soft nontender, no guarding, no rigidity Patient is awake, alert and oriented to self, place, time and person ; no focal motor deficit Psych: Normal mood No pedal edema Results Labs 03/06/23 23:09 03/06/23 23:09 Labs: Laboratory Results - last 24 hr 03/06/23 23:09 MCV 94.9 MCH 31.4 MCHC 33.0 RDW 12.3 Plt Count 196 MPV 8.8 L Immature Gran % (Auto) 0.3 Neut % (Auto) 63.1 Lymph % (Auto) 23.0 [place] % (Auto) 8.7 Eos % (Auto) 4.0 Baso % (Auto) 0.9 Lymph # (Auto) 2.0 [place] # (Auto) 0.8 Eos # (Auto) 0.4 Baso # (Auto) 0.1 Abs Immat Gran (auto) 0.03 Absolute Neuts (auto) 5.5 Absolute Nucleated RBC 0.000 Nucleated RBC % (auto) 0.0 Anion Gap 12 Estim Creat Clear Calc 56.8 Estimated GFR > 60 Random Glucose 110 Calcium 9.4 D Total Bilirubin 0.6 AST 16 ALT 14 Alkaline Phosphatase 130 H Total Protein 7.7 Albumin 4.0 Assessment and Plan (1) BRBPR (bright red blood per rectum): Status: Acute Plan This is a 77-year-old female with pertinent history of atrial fibrillation on Eliquis, hypothyroidism, mixed hyperlipidemia who presents to the emergency department for evaluation of bright red blood per rectum. #. Bright red blood per rectum, painless: Will admit patient with cardiac monitoring. Hold Eliquis. Consulting Gastroenterology, appreciate assistance. Closely monitor H&H #. Atrial fibrillation: Hold anticoagulation as above. Rate controlled in the ER #. Hypothyroidism: On Synthroid #. Mixed hyperlipidemia: On statin Med rec pending DVT prophylaxis: Mechanical Quality Stroke Does the patient have a stroke diagnosis?: No VTE Prior VTE?: No VTE Risk Level:: Medical - moderate - high VTE Device Contraindication: N/A - Device Ordered VTE Drug Contraindication: Treatment Not Indicated
[2023-03-07] MEDS: 0.9 % Sodium Chloride 1,000 ML 999 ML IV (01:33)
[2023-03-07 02:04] LABS: OBS Int Ctl Valid YES; OBS1 POSITIVE (NEGATIVE)
[2023-03-07 02:44] VITALS: BP 123/60; PULSE 69; RESP 16; TEMP 36.7; O2SAT 96
[2023-03-07 05:51] LABS: MANUAL DIFF FLAG NO
[2023-03-07 05:57] LABS: Basophils Absolute Auto 0.1 X10*3/uL (0.0-0.2); Basophils Percent Auto 1.1 % (0-2); Eosinophils Absolute Auto 0.3 X10*3/uL (0.0-0.4); Eosinophils Percent Auto 3.5 % (0-4); Hematocrit 43.9 % (37.0-47.0); Hemoglobin 14.6 g/dl (12.0-16.0); Imm Gran Abs Auto 0.04 X10*3/uL (0.00-0.03); Imm Gran Pct Auto 0.5 % (0.0-0.4); Lymphocytes Absolute Auto 1.4 X10*3/uL (1.2-4.9); Lymphocytes Percent Auto 19.1 % (20-40); Mean Corpuscular HGB Conc 33.3 g/dl (31.0-35.0); Mean Corpuscular Hemoglobin 31.6 pg (27.0-33.0); Monocytes Absolute Auto 0.7 X10*3/uL (0.1-1.2); Monocytes Percent Auto 9.3 % (2-11); Neutrophils Percent Auto 66.5 % (45-73); Platelet Count 176 X10*3/uL (160-400); Red Blood Count 4.62 X10*6/uL (4.20-5.50); Red Cell Distribution Width 12.4 % (11.0-16.0); White Blood Count 7.4 X10*3/uL (4.8-10.8)
[2023-03-07 06:20] LABS: Anion Gap 11 (12-20); Blood Urea Nitrogen 8 mg/dL (9-16); Carbon Dioxide 25 mmol/L (22-29); Chloride 102 mmol/L (96-108); Creatinine Clr Calc Pharmacy 54.1; Estimated Glomerular Filt Rate > 60; Glucose Random 100 mg/dL (60-115); Sodium 134 mmol/L (135-145)
[2023-03-07 07:12] VITALS: BP 137/71; PULSE 78; RESP 18; TEMP 36.6; O2SAT 98
[2023-03-07] MEDS: 0.9 % Sodium Chloride Flush 3 ML SYRINGE IVFLUSH (07:12)
--- NOTE | 2023-03-07 07:13 | PC.NURSE ---
report obtained from nights this nurse took over care at 7am, patient a&ox3, vss, pt denying pain at this time, pt npo, call lam within reach, will continue to monitor.
--- NOTE | 2023-03-07 07:41 | PM.GICN ---
History of Present Illness Data of Consult Service Date: 03/07/23 Requesting physician: Debbi Leyva Primary Care Provider: Kala Lundberg MD HPI Reason for consult: Bright red blood per rectum 77 YF with atrial fibrillation on Eliquis, hypothyroidism, mixed hyperlipidemia seen at [facility] ED this am for evaluation of bright red blood per rectum. Patient stated she has been having bright red blood per rectum on tissue paper for the last 7 days. Over the last 2 days, it has progressed to painless gushing of blood from rectum. Pt denied abdominal pain, fever or chills. No similar history in the past. Patient states her last colonoscopy was more than 20 years ago. Pt denied CP, SOB, dizziness, abdominal pain, nausea, vomiting. Review of Systems Constitutional: Constitutional: Reports no additional constitutional complaints Cardiovascular: Cardiovascular: Reports no additional cardiovascular complaints Respiratory: Respiratory: Reports no additional respiratory complaints Gastrointestinal: Gastrointestinal: Reports hematochezia Genitourinary: Genitourinary: Reports no additional female genitourinary complaints PMFSH Past Medical History Medical History Current use of mcc anticoagulation External hemorrhoids Hyperuricemia Vitamin D deficiency Impaired fasting glucose Inflammatory arthritis Multinodular thyroid Mixed stress and urge urinary incontinence Dyslipidemia Paroxysmal atrial fibrillation Chronic kidney disease, stage 3 Osteoporosis COPD (chronic obstructive pulmonary disease) Acquired hypothyroidism Family History Family History Father CVA (cerebral vascular accident) AAA (abdominal aortic aneurysm) Mother Diabetes mellitus HTN (hypertension) Sister Diabetes mellitus Son Substance use disorder Son Substance use disorder Surgical History Surgical History Hx of colonoscopy S/P partial hysterectomy History of section Social History Social History Household Members: Children Housing: Unknown / Unable to assess Alcohol intake: current Alcohol intake frequency: holidays/special occasions only Patient Tobacco Use Status: Former Tobacco user Years Smoked: 20 years e-Cigarette/Vaping Use: Never Used Current occupational status: retired Cognitive needs: No Hearing needs: No Vision needs: Yes Meds Allergies Allergy/AdvReac Type Severity Reaction Status Date / Time tetracycline [TETRACYCLINE] Allergy Unknown ITCHINESS, Verified 09/08/23 08:19 rash nitrofurantoin Allergy Swelling Verified 09/08/23 08:19 atorvastatin [Lipitor] AdvReac Unknown Muscle pain Verified 09/08/23 08:19 bactrim Allergy Unknown Elevated Uncoded 09/08/23 08:19 LFTs/Itching/Nausea fentanyl AdvReac Severe Unconscious Uncoded 09/08/23 08:19 Active Medications: Current Medications Acetaminophen (Acetaminophen 325 Mg Tablet) 650 mg PO Q6H PRN PRN Reason: Pain, Mild (Pain Scale 1-3) Melatonin (Melatonin 3 Mg Tablet) 6 mg PO BEDTIME PRN PRN Reason: Insomnia Ondansetron HCl (Ondansetron Hcl 4 Mg/2 Ml Vial) 4 mg IVPUSH Q8H PRN PRN Reason: Nausea and Vomiting Sodium Chloride (0.9 % Sodium Chloride Flush 3 Ml Syringe) 3 ml IVFLUSH [facility] Last Admin: 03/07/23 07:12 Dose: 3 ml Home Medications ?Medication ?Instructions ?Recorded ?Confirmed ?Last Taken ?Type apixaban 5 mg tablet (Eliquis) 5 mg PO BID 05/05/20 09/08/23 03/06/23 History flecainide 50 mg tablet 75 mg PO Q12H 09/09/22 09/08/23 03/06/23 History diltiazem HCl 240 mg 240 mg PO DAILY 03/07/23 09/08/23 03/06/23 History capsule,extended release 24 hr Physical Exam Vital Signs: Vital Signs: Last Vital Signs Temp 97.9 F 03/07/23 07:12 Pulse 78 03/07/23 07:12 Resp 18 03/07/23 07:12 BP 137/71 03/07/23 07:12 Pulse Ox 98 03/07/23 07:12 O2 Del Method Room Air 03/07/23 07:12 BMI result Body Mass Index 31.5 General: AO X 3, no acute distress Resp: CTA bilateral, no accessory muscles used CVS: S1,S2,RRR GI: soft, non tender, non distended Neuro: motor grossly intact, alert Psych: appropriate affect, appropriate insight Results Labs 03/07/23 13:00 03/07/23 04:55 Labs: Short CBC 03/06/23 03/07/23 Range/Units 23:09 04:55 WBC 8.8 7.4 (4.8-10.8) X10*3/uL Hgb 15.4 14.6 (12.0-16.0) g/dl Hct 46.6 43.9 (37.0-47.0) % Plt Count 196 176 (160-400) X10*3/uL BMP 03/06/23 03/07/23 23:09 04:55 Sodium 131 L 134 L Potassium 4.0 4.0 Chloride 98 102 Carbon Dioxide 25 25 BUN 10 8 L Creatinine 0.82 0.86 Calcium 9.4 D 9.0 Liver Function 03/06/23 Range/Units 23:09 Total Bilirubin 0.6 (0.0-1.0) mg/dL AST 16 (5-31) U/L ALT 14 (0-31) U/L Alkaline Phosphatase 130 H (39-117) U/L Albumin 4.0 (3.5-5.0) g/dL Assessment and Plan (1) BRBPR (bright red blood per rectum): Status: Acute Plan 77 YF with atrial fibrillation on Eliquis, hypothyroidism, mixed hyperlipidemia seen at [facility] this am for evaluation of bright red blood per rectum. Pt reported rectal bleeding for the past week that is progressively getting worse over the past couple days Pattern of bleeding is suggestive of a hemorrhoidal source. Other possibilities include large colon polyp or mass, AVMs or diverticular bleed Patient has had 1 episode of bleeding since arrival to the ER. She is on Eliquis and last dose was on the evening of 03/06/23. RECOMMENDATIONS: 1. Repeat CBC at 2 pm and monitor for bleeding. If recurrent bleeding with a decrease in H & H, pt will be scheduled for a colonoscopy on 03/09/23 2. If CBC remains stable without further bleeding, OK to discharge pt home later today and I will schedule her for a colonoscopy as an out patient on 03/11/23 3. Start hydrocortisone cream twice daily for hemorrhoids. 03/11/24 COLONOSCOPY WAS PERFORMED AN OUTPATIENT: Two small to medium sized hyperplastic polyps removed Random biopsies obtained from right and left colon to check for colitis (pt denied NSAID use) Moderate to severe diverticulosis seen in the left colon Plan: Patient has an appointment on 06/22/23 in the GI Clinic with Enriqueta Garcia FNP-BC. Repeat Colonoscopy interval based on path results - in 3-5 years if polyps are adenomatous and no additional colonoscopies if polyps are hyperplastic. Resume Eliquis on 03/12/23 BIOPSIES SHOWED: A. Colon, right, biopsy: Mildly active colitis; fully-developed chronic injury not identified. B. Colon, left, biopsy: Chronic inactive colitis. C. Colon, sigmoid, polypectomy: Hyperplastic mucosal polyp. D. Rectum, biopsy: Colonic mucosa with prominent lymphoid aggregate and mild surface hyperplastic changes; otherwise within normal limits Procedures Date of Service Date of Service: 11/06/23
--- NOTE | 2023-03-07 08:50 | PHA.MEDREC ---
Pharmacy Consult ? Medication Reconciliation Pharmacy has completed the medication reconciliation. Spoke to patient and verified medication list.
--- NOTE | 2023-03-07 09:15 | PC.NURSE ---
calling pharmacy for missing med
--- NOTE | 2023-03-07 09:18 | PC.NURSE ---
kitchen was called for breakfast tray for patient as she was changed from NPO to Low Na diet
--- NOTE | 2023-03-07 11:09 | PC.NURSE ---
Assumed care of patient at 1100, patient is resting comfortably on stretcher at this time, offers no complaints to this RN. Awaiting bed assignment
[2023-03-07 13:21] LABS: Hematocrit 44.5 % (37.0-47.0); Hemoglobin 14.9 g/dl (12.0-16.0)
--- NOTE | 2023-03-07 13:26 | PM.DS ---
DS: Providers Provider Date of Service: 03/07/23 Date of admission: 03/07/23 01:15 Primary care physician: Kala Lundberg MD Consults: 03/07/23 02:39 Consult to Gastroenterology Routine Consulting Provider: Curt Hyman Reason for consultation: Bright-red blood per rectum DS: Diagnosis Discharge Diagnosis (1) BRBPR (bright red blood per rectum): Status: Acute DS: Summary Hospital Course Hospital Course: from initial hpi: 77-year-old female with pertinent history of atrial fibrillation on Eliquis, hypothyroidism, mixed hyperlipidemia who presents to the emergency department for evaluation of bright red blood per rectum. Patient states she has been having bright red blood per rectum on tissue paper for the last 7 days. Over the last 2 days, it has progressed to painless gushing of blood from rectum. No abdominal pain. No fevers or chills. No similar history in the past. Patient states her last colonoscopy was more than 20 years ago. No chest discomfort, palpitations, shortness of breath, changes in urinary habits. In the emergency department, stool occult blood positive. hospital course: Patient was admitted for bright red blood per rectum. She had no drop in hemoglobin. She was seen by Gastroenterology who recommended holding Eliquis and following up outpatient for further investigation. She will be discharged on topical steroid as most likely this is from hemorrhoids. For paroxysmal atrial fibrillation Eliquis is being held as mentioned. She will continue on flecainide and Cardizem. For hypothyroidism she was continued on Synthroid. For hyperlipidemia she was continued on statin. Patient is feeling better will be discharged home. Time Attestation Discharge coordination time: Greater than 30 minutes Quality: Safe Use of Opioids Does Pt have an Active Cancer Diagnosis on the Problem List?: No Quality: Stroke Does the patient have a stroke diagnosis?: No Physical Exam Vital Signs: Vital Signs: Last Vital Signs Temp 97.9 F 03/07/23 07:12 Pulse 78 03/07/23 07:12 Resp 18 03/07/23 07:12 BP 137/71 03/07/23 07:12 Pulse Ox 98 03/07/23 07:12 O2 Del Method Room Air 03/07/23 07:12 BMI result Body Mass Index 31.5 General: AO X 3, no acute distress Resp: CTA bilateral, no accessory muscles used CVS: S1,S2,RRR GI: soft, non tender, non distended Neuro: motor grossly intact, alert Psych: appropriate affect, appropriate insight DS: Data Data Completed and Pending Labs on day of discharge: Laboratory Results - last 24 hr 03/06/23 03/07/23 03/07/23 23:09 01:25 04:55 WBC 8.8 7.4 RBC 4.91 4.62 Hgb 15.4 14.6 Hct 46.6 43.9 MCV 94.9 95.0 MCH 31.4 31.6 MCHC 33.0 33.3 RDW 12.3 12.4 Plt Count 196 176 MPV 8.8 L 9.0 L Immature Gran % (Auto) 0.3 0.5 H Neut % (Auto) 63.1 66.5 Lymph % (Auto) 23.0 19.1 L Grayson % (Auto) 8.7 9.3 Eos % (Auto) 4.0 3.5 Baso % (Auto) 0.9 1.1 Lymph # (Auto) 2.0 1.4 Grayson # (Auto) 0.8 0.7 Eos # (Auto) 0.4 0.3 Baso # (Auto) 0.1 0.1 Abs Immat Gran (auto) 0.03 0.04 H Absolute Neuts (auto) 5.5 5.0 Absolute Nucleated RBC 0.000 0.000 Nucleated RBC % (auto) 0.0 0.0 Sodium 131 L 134 L Potassium 4.0 4.0 Chloride 98 102 Carbon Dioxide 25 25 Anion Gap 12 11 L BUN 10 8 L Creatinine 0.82 0.86 Estim Creat Clear Calc 56.8 54.1 Estimated GFR > 60 > 60 Random Glucose 110 100 Calcium 9.4 D 9.0 Total Bilirubin 0.6 AST 16 ALT 14 Alkaline Phosphatase 130 H Total Protein 7.7 Albumin 4.0 Stool Occult Blood POSITIVE 03/07/23 13:00 WBC RBC Hgb 14.9 Hct 44.5 MCV MCH MCHC RDW Plt Count MPV Immature Gran % (Auto) Neut % (Auto) Lymph % (Auto) Grayson % (Auto) Eos % (Auto) Baso % (Auto) Lymph # (Auto) Grayson # (Auto) Eos # (Auto) Baso # (Auto) Abs Immat Gran (auto) Absolute Neuts (auto) Absolute Nucleated RBC Nucleated RBC % (auto) Sodium Potassium Chloride Carbon Dioxide Anion Gap BUN Creatinine Estim Creat Clear Calc Estimated GFR Random Glucose Calcium Total Bilirubin AST ALT Alkaline Phosphatase Total Protein Albumin Stool Occult Blood Discharge Plan Discharge Anticipated Discharge Date/Time: 03/07/23 13:23 Patient Disposition: Home, Self-Care Discharge Diagnosis: brbpr Referrals: Kala Lundberg MD [Primary Care Provider] - 1 Week Vivian Reyes MD [Physician] - 1 Week Discharge Medications: New hydrocortisone [Proctozone-HC] 2.5 % Cream With Perineal Applicator 1 appl DE BID Qty: 30 0RF Continued levothyroxine 75 mcg tablet 75 mcg PO DAILY Qty: 90 1RF rosuvastatin 5 mg tablet 5 mg PO 2XW 90 Days Qty: 26 1RF albuterol sulfate 90 mcg/actuation HFA aerosol inhaler 2 puff inhalation Q6H PRN (Reason: shortness of breath or wheezing) Qty: 8.5 0RF diltiazem HCl 240 mg capsule,extended release 24hr 240 mg PO DAILY flecainide 50 mg tablet 75 mg PO Q12H calcium citrate 250 mg calcium tablet 500 mg PO BID 90 Days Qty: 360 1RF cholecalciferol (vitamin D3) 25 mcg (1,000 unit) capsule 25 mcg PO DAILY 90 Days Qty: 90 1RF bisacodyl [Dulcolax (bisacodyl)] 5 mg tablet,delayed release (DR/EC) 10 mg PO ONCE 1 Days Qty: 2 0RF Rx Instructions: take 2 tabs at noon the day before your colonoscopy polyethylene glycol 3350 [Miralax] 17 gram/dose powder 238 g PO ONCE Qty: 238 0RF Rx Instructions: As directed by gastroenterology department at [facility] Held Eliquis 5 mg tablet 5 mg PO BID Hold Instructions: Resume on 03/21/23. Rx Instructions: stop for 3 days before colonoscopy Discharge Orders: Discharge Order (Routine); Ordered 03/07/23 Ordered By: Tobias Batres Diet: Advance to usual diet Activity on Discharge: As tolerated Stand Alone Forms: Patient Portal Discharge page Care Plan Goals: work up brbpr Health Concerns: brbpr Plan of Treatment: rectal steroids, hold eliquis for now, follow up with gi Assessment: see above
--- NOTE | 2023-03-07 13:38 | PC.NURSE ---
patient continues to rest comfortably, offers no complaints at this time. Patient was able to ambulate with steady gait to bathroom, no issues. Continuing to await bed assignment
--- NOTE | 2023-03-07 13:39 | PC.NURSE ---
pharmacy called for 1215 medication
[2023-03-07 14:26] VITALS: PULSE 75; RESP 21
--- NOTE | 2023-03-08 07:55 | MHC.CM.PN ---
Patient d/c'd home prior to being seen by case management.
== END 2023-03-07 16:10 | disposition home or self-care (01) ==
LOC: HO.ED 03-07 00:46 → HO.EDOVER 03-07 01:19
PROVIDERS: Admitting Provider Student in an Organized Health Care Education/Training Program; Emergency Provider Emergency Medicine; PCP Internal Medicine; Visit Provider Internal Medicine
DX: K62.5 Hemorrhage of anus and rectum (principal); I48.0 Paroxysmal atrial fibrillation; E03.9 Hypothyroidism, unspecified; E55.9 Vitamin D deficiency, unspecified; J44.9 Chronic obstructive pulmonary disease, unspecified; I12.9 Hypertensive chronic kidney disease with stage 1 through stage 4 chronic kidney disease, or unspecified chronic kidney disease; N18.30 Chronic kidney disease, stage 3 unspecified; E78.2 Mixed hyperlipidemia; Z79.01 Long term (current) use of anticoagulants
CPT/HCPCS: 36415; 80048; 80053; 82272; 85014; 85018; 85025; 93005; 96360; 99222; 99285

== ENCOUNTER → 2023-03-07 01:15 | Outpatient (BNV) | payer MEDICARE, BC, SELFPAY | PROVIDERS: Admitting Provider Student in an Organized Health Care Education/Training Program; Emergency Provider Emergency Medicine; PCP Internal Medicine; Visit Provider Student in an Organized Health Care Education/Training Program | DX: K62.5 Hemorrhage of anus and rectum (principal) | CPT/HCPCS: 99235; 99499 ==

== ENCOUNTER → 2023-03-07 01:15 | Outpatient (BNV) | payer MEDICARE, BC, SELFPAY | PROVIDERS: Admitting Provider Student in an Organized Health Care Education/Training Program; Emergency Provider Emergency Medicine; PCP Internal Medicine; Visit Provider Internal Medicine Gastroenterology | DX: K62.5 Hemorrhage of anus and rectum (principal); Z79.01 Long term (current) use of anticoagulants | CPT/HCPCS: 99222 ==

== ENCOUNTER 2023-03-11 13:09 | Day surgery (SDC) | payer MEDICARE, BC, SELFPAY ==
[2023-03-11 15:10] VITALS: BMI 31.0
[2023-03-11 15:12] VITALS: BP 144/56; PULSE 74; RESP 20; TEMP 36.9; O2SAT 94
[2023-03-11] MEDS: Lactated Ringers 1,000 ML 100 ML IVCONT (15:21)
--- NOTE | 2023-03-11 15:51 | MHC.SHP ---
Pre-Procedural Eval Section A Date of Service: 03/11/23 The patient is an INPATIENT: No Changes since office visit: Yes Patient answered all questions; No Cold of Flu in the past 2 weeks, No New Medical Problems and No Changes in Medication The History & Physical has been completed within 30 days and I have reviewed it.: Yes Section B Chief Complaint: Rectal bleeding Allergies: Allergies Allergy/AdvReac Type Severity Reaction Status Date / Time tetracycline [TETRACYCLINE] Allergy Unknown ITCHINESS, Verified 02/23/23 08:34 rash nitrofurantoin Allergy Swelling Verified 02/23/23 08:34 atorvastatin [Lipitor] AdvReac Unknown Muscle pain Verified 02/23/23 08:34 bactrim Allergy Unknown Elevated Uncoded 02/23/23 08:34 LFTs/Itching/Nausea fentanyl AdvReac Severe Unconscious Uncoded 02/23/23 08:34 Plan Diagnosis/Plan: Unchanged I have reviewed the history and physical and performed a pertinent physical examination on my patient. No changes have occurred unless specified. Time Spent With Patient Time: Total time managing care of this patient today ____ minutes.
--- NOTE | 2023-03-11 15:52 | P.OP_ITS ---
Operative Note Operative Note Date of Service: 03/11/23 Narrative: COLONOSCOPY TILL CECUM WITH BIOPSIES, SNARE POLYPECTOMY AND HEMOCLIP PLACEMENT Pre-op diagnosis: Rectal bleeding Post-op diagnosis:? Colon polyps, diverticulosis, Endoscopist:? Vivian Reyes MD Anesthesia:?MAC Consent: Indications for the procedure and potential complications of bleeding, perforation, reaction to medications and missed diagnosis were discussed with the patient and informed consent was obtained. Instrument: Olympus PCF H 190 L variable stiffness pediatric colonoscope Monitoring: Vital signs and clinical assessment, intermittent blood pressure monitoring, continuous EKG monitoring, Pulse oximetry and Carbon Dioxide monitoring were done throughout the procedure. Please see anesthesia flowsheet. Colon withdrawl time was 24 minutes. Procedure: The patient was placed in the left lateral decubitis position and pre-procedure medications were administered. After a digital rectal examination of the ano-rectum, the video colonoscope was inserted into the rectum and advanced through the colon to the cecum. The colonoscope was slowly withdrawn in a retrograde panoramic fashion and the colon mucosa was carefully examined including a retroflexed view of the rectum. Findings and interventions are described below. Procedure Difficulty: Colon was long and there was some loop formation. There was narrowing of the colon at 25-30 cm due to severe diverticulosis which was navigated with some difficulty Findings: Terminal Ileum: Not evaluated Cecum: Normal Ascending Colon: Friable mucosa with patchy erythema with a few aphthoid ulcers in the right colon -random biopsies were obtained Transverse Colon: Normal Descending Colon: Moderate diverticulosis Sigmoid Colon: A 10-12 mm sessile polyp at 50 cms - removed with a cold snare. Minor bleeding noted at polypectomy site which was closed with 1 hemoclip. A 2nd 7-8 mm sessile polyp - removed with a cold snare and polyp was not retrieved Severe diverticulosis with luminal narrowing Rectum: Patchy erythema - biopsies were obtained to rule out proctitis. A few diminutive appearing polyps Ano-rectum: Perianal skin tags. Significant hemorrhoids not seen. Colon preparation: Good after copious irrigation Impression and Post Procedure Diagnosis: Colonoscopy Findings: Two small to medium sized polyps removed Random biopsies obtained from right and left colon to check for colitis (pt denied NSAID use) Moderate to severe diverticulosis seen in the left colon Plan: I will send a letter with pathology results Patient has an appointment on 06/22/23 in the GI Clinic with Enriqueta Garcia FNP- [facility]. Repeat Colonoscopy interval based on path results - in 3-5 years if polyps are adenomatous and no additional colonoscopies if polyps are hyperplastic. Resume Eliquis on 03/12/23 Above findings were reviewed with the patient and colon polyps and diverticulosis handouts were given in the discharge area
--- NOTE | 2023-03-11 15:55 | HO.ANESPROP2 ---
Documented by User: Gabrielle Vanessa NP 03/10/23 12:17 HPI - Anesthesia Eval Consult details Narrative: 77yo F for Colonoscopy C admit 03/07/23 with BRBPR. H&H remained stable. Outpt f/u. Eliquis for PAF on hold [facility] Active Problems Active Problems: All Active Problems (Updated 03/07/23 @ 00:46 by Anna Shields MD) BRBPR (bright red blood per rectum) (Acute) Current use of [facility] anticoagulation (Acute) External hemorrhoids (Acute) Hyperuricemia (Acute) Impaired fasting glucose (Acute) Inflammatory arthritis (Acute) Multinodular thyroid (Acute) Mixed stress and urge urinary incontinence (Acute) Dyslipidemia (Acute) Paroxysmal atrial fibrillation (Acute) Chronic kidney disease, stage 3 (Acute) Osteoporosis (Acute) COPD (chronic obstructive pulmonary disease) (Acute) Acquired hypothyroidism (Acute) Past Medical History Medical History Current use of [facility] anticoagulation External hemorrhoids Hyperuricemia Vitamin D deficiency Impaired fasting glucose Inflammatory arthritis Multinodular thyroid Mixed stress and urge urinary incontinence Dyslipidemia Paroxysmal atrial fibrillation Chronic kidney disease, stage 3 Osteoporosis COPD (chronic obstructive pulmonary disease) Acquired hypothyroidism Family History Family History Father CVA (cerebral vascular accident) AAA (abdominal aortic aneurysm) Mother Diabetes mellitus HTN (hypertension) Sister Diabetes mellitus Son Substance use disorder Son Substance use disorder Surgical History Surgical History Hx of colonoscopy S/P partial hysterectomy History of section Social History Social History Household Members: Children Housing: Unknown / Unable to assess Alcohol intake: current Alcohol intake frequency: holidays/special occasions only Patient Tobacco Use Status: Former Tobacco user Years Smoked: 20 years e-Cigarette/Vaping Use: Never Used Use of substances other than those prescribed or required for medical reasons: No Are you DNR?: No Advance Directives: No Advance Directives Information Provided: Yes Current occupational status: retired Cognitive needs: No Hearing needs: No Vision needs: Yes Meds Allergies Allergy/AdvReac Type Severity Reaction Status Date / Time tetracycline [TETRACYCLINE] Allergy Unknown ITCHINESS, Verified 02/23/23 08:34 rash nitrofurantoin Allergy Swelling Verified 02/23/23 08:34 atorvastatin [Lipitor] AdvReac Unknown Muscle pain Verified 02/23/23 08:34 bactrim Allergy Unknown Elevated Uncoded 02/23/23 08:34 LFTs/Itching/Nausea fentanyl AdvReac Severe Unconscious Uncoded 02/23/23 08:34 Home Medications Medication Instructions Recorded Confirmed Last Taken Type apixaban 5 mg tablet (Eliquis) 5 mg PO BID 05/05/20 03/07/23 03/06/23 History flecainide 50 mg tablet 75 mg PO Q12H 09/09/22 03/07/23 03/06/23 History diltiazem HCl 240 mg 240 mg PO DAILY 03/07/23 03/07/23 03/06/23 History capsule,extended release 24 hr Exam Pertinent Lab Results Pertinent Lab Results: Laboratory Tests 03/07/23 03/07/23 03/07/23 04:55 04:55 13:00 WBC 7.4 Hgb 14.9 Hct 44.5 Plt Count 176 Sodium 134 L Potassium 4.0 Chloride 102 Carbon Dioxide 25 BUN 8 L Creatinine 0.86 Narrative Narrative: EKG 02/2023 Vent. Rate : 068 BPM Atrial Rate : 068 BPM P-R Int : 200 ms QRS Dur : 088 ms QT Int : 414 ms P-R-T Axes : 045 056 073 degrees QTc Int : 440 ms Normal sinus rhythm Nonspecific ST abnormality Lateral leads Abnormal ECG When compared with ECG of 29-APR-2016 10:15, Nonspecific ST abnormality is new Assessment and Plan Assessment Anesthesia Assessment: Chart Reviewed Documented by User: Olivia Forrester DO 03/11/23 15:58 PMFSH Past Medical History Medical History Current use of [facility] anticoagulation External hemorrhoids Hyperuricemia Vitamin D deficiency Impaired fasting glucose Inflammatory arthritis Multinodular thyroid Mixed stress and urge urinary incontinence Dyslipidemia Paroxysmal atrial fibrillation Chronic kidney disease, stage 3 Osteoporosis COPD (chronic obstructive pulmonary disease) Acquired hypothyroidism Family History Family History Father CVA (cerebral vascular accident) AAA (abdominal aortic aneurysm) Mother Diabetes mellitus HTN (hypertension) Sister Diabetes mellitus Son Substance use disorder Son Substance use disorder Family history of problems with anesthesia: No Surgical History Surgical History Hx of colonoscopy S/P partial hysterectomy History of section History of Problems with Anesthesia: No Social History Social History Household Members: Children Housing: Unknown / Unable to assess Alcohol intake: current Alcohol intake frequency: holidays/special occasions only Patient Tobacco Use Status: Former Tobacco user Years Smoked: 20 years e-Cigarette/Vaping Use: Never Used Use of substances other than those prescribed or required for medical reasons: No Are you DNR?: No Advance Directives: No Advance Directives Information Provided: Yes Current occupational status: retired Cognitive needs: No Hearing needs: No Vision needs: Yes Meds Allergies Allergy/AdvReac Type Severity Reaction Status Date / Time tetracycline [TETRACYCLINE] Allergy Unknown ITCHINESS, Verified 02/23/23 08:34 rash nitrofurantoin Allergy Swelling Verified 02/23/23 08:34 atorvastatin [Lipitor] AdvReac Unknown Muscle pain Verified 02/23/23 08:34 bactrim Allergy Unknown Elevated Uncoded 02/23/23 08:34 LFTs/Itching/Nausea fentanyl AdvReac Severe Unconscious Uncoded 02/23/23 08:34 Home Medications Medication Instructions Recorded Confirmed Last Taken Type apixaban 5 mg tablet (Eliquis) 5 mg PO BID 05/05/20 03/07/23 03/06/23 History flecainide 50 mg tablet 75 mg PO Q12H 09/09/22 03/07/23 03/06/23 History diltiazem HCl 240 mg 240 mg PO DAILY 03/07/23 03/07/23 03/06/23 History capsule,extended release 24 hr Exam Exam Date and Time: March 11, 2023 6535 Height,Weight and Vital Signs: Height 5 ft 3 in Weight 79.379 kg Vital Signs Temperature 98.4 F 03/11/23 15:12 Pulse Rate 74 03/11/23 15:12 Respiratory Rate 20 03/11/23 15:12 Blood Pressure 144/56 H 03/11/23 15:12 Pulse Oximetry 94 03/11/23 15:12 Oxygen Delivery Method Room Air 03/11/23 15:12 Temperature 98.4 F 03/11/23 15:12 Pulse Rate 74 03/11/23 15:12 Respiratory Rate 20 03/11/23 15:12 Blood Pressure 144/56 H 03/11/23 15:12 Pulse Oximetry 94 03/11/23 15:12 Oxygen Delivery Method Room Air 03/11/23 15:12 Airway Mallampati Class: I TM Dist: >3cm Neck ROM: Full Denture: Upper and Lower Loose/Missing/Broken Teeth: No Heart: S1S2 Lungs: CTAB Assessment and Plan Assessment Anesthesia Assessment: Anesthesia Plan Discussed and Chart Reviewed Final Anesthetic Review Family History of Problems with Anesthesia: No History of Problems with Anesthesia: No NPO: Yes ASA Class: III Final Preanesthetic Review: No Changes in Pt Med Stat, Meds/Allgs Chart Reviewed, Consent Obtained/Reviewed and Anes Risks/Benef Reviewed Patient Risk: Intermediate Procedure Risk: Low Anesthetic Plan Anesthetic Plan: MAC: and Agree w/ Assess. and Plan Disposition: Standard PACU
[2023-03-11 16:45] VITALS: BP 136/66; PULSE 72; RESP 20; TEMP 36.4; O2SAT 95
[2023-03-11 17:00] VITALS: BP 139/64; PULSE 68; RESP 18; TEMP 37; O2SAT 97
== END 2023-03-11 17:30 | disposition home or self-care (01) ==
PROVIDERS: PCP Internal Medicine; Visit Provider Internal Medicine Gastroenterology
PROC: 0DJD8ZZ Inspection of Lower Intestinal Tract, Via Natural or Artificial Opening Endoscopic (ICD-10-PCS; CPT 45378; principal; 2023-03-11 16:00)
DX: Z12.11 Encounter for screening for malignant neoplasm of colon (principal); K52.9 Noninfective gastroenteritis and colitis, unspecified; K57.30 Diverticulosis of large intestine without perforation or abscess without bleeding; K63.3 Ulcer of intestine; K56.2 Volvulus; K64.4 Residual hemorrhoidal skin tags; K62.9 Disease of anus and rectum, unspecified; K62.5 Hemorrhage of anus and rectum; E78.5 Hyperlipidemia, unspecified; I48.0 Paroxysmal atrial fibrillation; J44.9 Chronic obstructive pulmonary disease, unspecified; E03.9 Hypothyroidism, unspecified; N18.30 Chronic kidney disease, stage 3 unspecified; Z87.891 Personal history of nicotine dependence; Z79.01 Long term (current) use of anticoagulants; Z90.711 Acquired absence of uterus with remaining cervical stump; Z79.899 Other long term (current) drug therapy; K63.5 Polyp of colon
CPT/HCPCS: 45385; 45380; 88305; J2704

== ENCOUNTER → 2023-03-11 13:09 | Outpatient (BNV) | payer MEDICARE, BC, SELFPAY | PROVIDERS: PCP Internal Medicine; Visit Provider Internal Medicine Gastroenterology | DX: K62.5 Hemorrhage of anus and rectum (principal); K57.30 Diverticulosis of large intestine without perforation or abscess without bleeding; D12.2 Benign neoplasm of ascending colon; D12.5 Benign neoplasm of sigmoid colon; D12.8 Benign neoplasm of rectum; K64.4 Residual hemorrhoidal skin tags | CPT/HCPCS: 45380; 45385 ==

== ENCOUNTER 2023-04-20 09:11 | Outpatient (REF) | payer MEDICARE, BC, SELFPAY ==
[2023-04-20 10:56] LABS: Anion Gap 12 (12-20); Blood Urea Nitrogen 16 mg/dL (9-16); Carbon Dioxide 27 mmol/L (22-29); Chloride 101 mmol/L (96-108); Estimated Glomerular Filt Rate 48; Glucose Random 102 mg/dL (60-115); Potassium 4.7 mmol/L (3.3-5.1); Sodium 135 mmol/L (135-145)
== END 2023-04-20 09:12 | disposition home or self-care (01) ==
LOC: HO.10HDL 09:11
PROVIDERS: Visit Provider Internal Medicine Cardiovascular Disease
DX: I10 Essential (primary) hypertension (principal)
CPT/HCPCS: 36415; 80048

== ENCOUNTER 2023-09-08 07:50 | Outpatient (AMB) | payer MEDICARE, BC, SELFPAY ==
--- NOTE | 2023-09-08 07:52 | MHC.PC.OV ---
Vital Signs 09/08/23 07:53 Height 5 ft 3 in Weight 173 lb BMI 30.6 BP 118/60 Blood Pressure Location Rt brachial Position Sitting Pulse 78 Pulse Source Pulse Oximeter Pulse Oximetry (%) 96 Oxygen Delivery Method Room Air Intake Visit Reasons: c/o neck & head pain no injury noted Intake Note: Pt is here today c/o head and neck pain on and off for 1mo. no injury noted Allergies tetracycline [TETRACYCLINE] Allergy (Unknown, Verified 09/08/23 08:19) ITCHINESS, rash nitrofurantoin Allergy (Verified 09/08/23 08:19) Swelling atorvastatin [Lipitor] Adverse Reaction (Unknown, Verified 09/08/23 08:19) Muscle pain bactrim Allergy (Unknown, Uncoded 09/08/23 08:19) Elevated LFTs/Itching/Nausea fentanyl Adverse Reaction (Severe, Uncoded 09/08/23 08:19) Unconscious Medication List - Last Reconciled 09/08/23 by Kala Lundberg MD albuterol sulfate 90 mcg/actuation 2 puffs inhalation Q6H PRN apixaban (Eliquis) 5 mg PO BID diltiazem HCl CD 240 mg PO DAILY flecainide 75 mg PO Q12H levothyroxine 75 mcg PO DAILY rosuvastatin 5 mg PO 2XW 90 days Tobacco use date assessed: 11/24/22 Fall risk assessment: No Falls in past year Last assessed Fall Risk: 09/08/23 Dental Screening Dental Screen Date: 09/08/23 Did you have a dental visit in the last 12 months?: No Was dental information given to patient?: Patient declined HPI c/o neck & head pain no injury noted HPI Details 78-year-old lady here today complaining of recurrent pain in posterior neck sometimes radiating to left occiput when turning her head. This has been occurring now for the last several weeks. No history of injury, no strenuous exertion, no recent illness. She states that she wakes up with the pain, aggravated by turning her head from [id number] or tilting backwards. Has been taking Tylenol 500 mg 1 tablet 3 times a day which affords relief. Denies any radiation of pain, no accompanying weakness, no tingling, no numbness no alteration in bowel or bladder habits. 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 External hemorrhoids Hyperuricemia Vitamin D deficiency Impaired fasting glucose Inflammatory arthritis Multinodular thyroid Mixed stress and urge urinary incontinence Dyslipidemia Paroxysmal atrial fibrillation Chronic kidney disease, stage 3 Osteoporosis COPD (chronic obstructive pulmonary disease) Acquired hypothyroidism Surgical History Hx of colonoscopy S/P partial hysterectomy History of section Family History Father CVA (cerebral vascular accident) AAA (abdominal aortic aneurysm) Mother Diabetes mellitus HTN (hypertension) Sister Diabetes mellitus Son Substance use disorder Son Substance use disorder Social History Household Members: Children Housing: Unknown / Unable to assess Alcohol intake: current Alcohol intake frequency: holidays/special occasions only Patient Tobacco Use Status: Former Tobacco user Years Smoked: 20 years e-Cigarette/Vaping Use: Never Used Current occupational status: retired Cognitive needs: No Hearing needs: No Vision needs: Yes Questionnaire PHQ-9 Over the last 2 weeks, how often have you been bothered by any of the following problems? 1. Little interest or pleasure in doing things: not at all 2. Feeling down, depressed, or hopeless: not at all 3. Trouble falling or staying asleep, or sleeping too much: not at all 4. Feeling tired or having little energy: more than half the days 5. Poor appetite or overeating: several days 6. Feeling bad about yourself - or that you are a failure or have let yourself or your family down: not at all 7. Trouble concentrating on things, such as reading the newspaper or watching television: several days 8. Moving or speaking so slowly that other people could have noticed. Or the opposite - being so fidgety or restless that you have been moving around a lot more than usual: not at all 9. Thoughts that you would be better off or of hurting yourself in some way: not at all Total score: 4 Depression Screening Interpretation: Negative Depression Screening Done: Yes 27214 - PHQ-9 Billing: Yes Source: Developed by Drs. Orlando L. LeidyLeah brothers Kurt Kroenke and colleagues, with an educational cuba from [employer] 1. Thrive Questionnaire Date Thrive assessed: 09/08/23 I am a: Patient What is your living situation today?: I have a steady place to live Within the past 12 months, did the food you bought not last and you didn't have the money to get more?: Never true Within the past 12 months, did you worry whether your food would run out before you got money to buy more?: Never true Do you have trouble paying for medicines?: No Do you have trouble getting transportation to medical appointments?: No Do you have trouble paying your heating and electricity bill?: No Do you have trouble taking care of your child, family member or friend?: No Do you have trouble with day-to-day activities such as bathing, preparing meals, shopping, managing finances, etc.?: No Are you currently unemployed and looking for a job?: No Are you interested in more education?: No THRIVE Score: 0 AUDIT C Alcohol Use Questionnaire (AUDIT-C) 1. How often do you have a drink containing alcohol?: Never Total Score: 0 CATIA-7 AMB Questionnaire CATIA-7 Date CATIA - 7 assessed: 09/08/23 Feeling nervous, anxious, or on edge: 0 = Not at all Not being able to stop or control worryin = Several days Worrying too much about different things: 0 = Not at all Trouble relaxin = Not at all Being so restless that it is hard to sit still: 0 = Not at all Becoming easily annoyed or irritable: 0 = Not at all Feeling afraid as if something awful might happen: 0 = Not at all Total CATIA-7 score (0-4 normal; 5-9 mild; 10-14 moderate; 15-21 severe): 1 Source: Developed by Drs. Orlando Forbes, Samuel Goldman and colleagues, with an educational cuba from [employer]. CATIA-7 Assessment Billing CATIA-7 Assessment Tool: CATIA-7 Assessment 40145 Review of Systems Const Reports no additional complaints Eyes Reports no additional complaints ENT Denies dysphagia, Denies vertigo, Denies dizziness, Denies nasal congestion, Denies neck mass, Denies odynophagia, Denies disequilibrium and Denies sore throat Card Reports no additional complaints Resp Reports no additional complaints GI Denies dysphagia and Denies odynophagia Reports no additional complaints Musc Details: Limited range of motion of left shoulder joint due to tendinitis Reports no additional complaints Skin/Breast Denies rash Neuro Reports no additional complaints, Denies vertigo, Denies dizziness, Denies Sensory deficit (Neuro) and Denies disequilibrium Psych Reports no additional complaints Endo Reports no additional complaints Physical exam (Primary Care) Vital Signs: Last Vital Signs Pulse 78 09/08/23 07:53 BP 118/60 09/08/23 07:53 Pulse Ox 96 09/08/23 07:53 Oxygen Delivery Method Room Air 09/08/23 07:53 BMI result Body Mass Index 30.6 Tobacco/Smoking Status: Tobacco use Status Tobacco use date assessed 11/24/22 09/08/23 07:54 Patient Tobacco Use Status Former Tobacco user 09/08/23 07:54 e-Cigarette/Vaping Use Never Used 09/08/23 07:54 PHQ-9: PHQ-9 Score PHQ-9: Total score 4 09/08/23 08:31 Depression Screening Interpretation: Negative Thrive Assessment: Date of Thrive Assessment Date Thrive assessed 09/08/23 09/08/23 08:31 Const General: healthy appearing, no acute distress and alert Orientation/consciousness: patient oriented x3 HENMT Head: Yes normal to inspection, Yes normocephalic and Yes atraumatic Ears: external ears normal General nose exam: Normal external nose present Face and sinus: Yes face symmetric Mouth: Normal oral and palatal mucosa present, oropharynx normal and moist mucous membranes Eyes Conjunctivae: conjunctivae normal Sclerae: sclerae normal Pupils: Equal, round and reactive pupils present EOM: EOMs intact bilaterally Neck Other: Decreased range of motion due to pain and stiffness on tilting head backwards or turning from side to side, tenderness on palpation over paraspinal muscles in left cervical area more than the right, no mass palpated Neck: Yes no lymphadenopathy Resp Effort & Inspection: normal respiratory effort and able to speak in complete sentences Auscultation: clear to auscultation bilaterally Cardio Rhythm: abnormal rhythm irregularly irregular GI Inspection: Yes normal to inspection Palpation (GI): Soft to palpation Auscultation: normal bowel sounds General: Yes no CVA tenderness Back/Spine/Pelvis Back: no CVA tenderness Skin General skin exam: no rashes or lesions noted Neuro General: patient oriented x3, gait normal, no focal motor deficits and CN's II-XI intact bilaterally Cranial nerves: Yes Equal, round and reactive pupils present Cognition (Neuro): normal cognition Gait exam (Neuro): Normal gait present Sensory Exam: No Sensory deficit (Neuro) Extrem Other: Decreased range of motion of left shoulder joint due to tendinitis General: Yes normal to inspection, Yes no pedal edema and Yes normal gait Assessment and Plan Assessment & Plan (1) Cervicalgia: Code(s): M54.2 - Cervicalgia Plan: Continue taking Tylenol 500 mg 1 tablet 3 times a day as needed for pain, advised to try applying Salonpas patch to affected area in posterior neck and may apply every 8 hours and leave it on at night when sleeping. If not using it, she can also try massaging absorbent karely gel to affected area. X-ray of cervical spine ordered and refer for physical therapy ordered , patient indicates that she wants to do her physical therapy in [facility] Orders: Orders XR cervical spine w flex/ext Today M54.2 - Cervicalgia PT Evaluation and Treatment Today M54.2 - Cervicalgia Coding Level of Care Code Est Pt Level 4 (00808) Diagnoses Cervicalgia M54.2 Additional Codes CATIA-7 Assessment Billing - CATIA-7 Assessment Tool: CATIA-7 Assessment 46383 ([id number])
[2023-09-08 07:53] VITALS: BP 118/60; PULSE 78; O2SAT 96; BMI 30.6
== END 2023-09-08 08:47 | disposition home or self-care (01) ==
PROVIDERS: PCP Internal Medicine; Visit Provider Internal Medicine
DX: M54.2 Cervicalgia (principal)
CPT/HCPCS: 99214

== ENCOUNTER 2023-09-08 08:38 | Outpatient (REF) | payer MEDICARE, BC, SELFPAY ==
--- NOTE | ~2023-09-08 | XR_ITS ---
EXAMINATION: XR CERVICAL SPINE CLINICAL INFORMATION: Cervicalgia COMPARISON: 09/09/2022 cervical spine TECHNIQUE: 4 views of the cervical spine, inclusive of flexion and extension views, were obtained. FINDINGS: There is no significant interval change. C7 is obscured by the soft tissues of the patient's shoulders. The bones are diffusely demineralized. There is no fracture. Prevertebral soft tissues are within normal limits. There is reversal of the usual cervical lordosis. There is disc space narrowing at C4-C5 and C5-C6. There is mild anterolisthesis of C3 with respect to C4. This increases with flexion is unchanged with extension. There is mild degenerative facet joint disease at L2-L3. XR/XR cervical spine w flex/ext IMPRESSION: 1. Degenerative disc disease at C4-C5 and C5-C6. 2. Mild anterolisthesis of C3 with respect to C4, as discussed above.
== END 2023-09-08 08:39 | disposition home or self-care (01) ==
LOC: HO.HMGCX 08:38
PROVIDERS: PCP Internal Medicine; Visit Provider Internal Medicine
DX: M54.2 Cervicalgia (principal)
CPT/HCPCS: 72052

== ENCOUNTER 2023-10-06 07:55 | Outpatient (REF) | payer MEDICARE, BC, SELFPAY ==
[2023-10-06 11:23] LABS: Anion Gap 13 (12-20); Blood Urea Nitrogen 13 mg/dL (9-16); Calcium 9.7 mg/dL (8.4-10.2); Carbon Dioxide 27 mmol/L (22-29); Chloride 100 mmol/L (96-108); Estimated Glomerular Filt Rate > 60; Glucose Random 104 mg/dL (60-115); Osmolality Urine 327 mosm/kg (373-1093); Potassium 4.1 mmol/L (3.3-5.1); Sodium 136 mmol/L (135-145)
[2023-10-06 12:05] LABS: Osmolality, Serum 288 mosm/kg (281-305)
== END 2023-10-06 07:56 | disposition home or self-care (01) ==
LOC: HO.10HDL 07:55
PROVIDERS: Visit Provider Nurse Practitioner Family
DX: E87.1 Hypo-osmolality and hyponatremia (principal)
CPT/HCPCS: 36415; 80048; 83930; 83935; 84300

== ENCOUNTER 2023-11-24 11:01 | Emergency (ER) | payer MEDICARE, BC, SELFPAY ==
--- NOTE | ~2023-11-24 | CT_ITS ---
EXAMINATION: CT CERVICAL SPINE WITHOUT CONTRAST CLINICAL INFORMATION: Fall. COMPARISON: Cervical spine radiographs 06/15/2011. TECHNIQUE: Unenhanced CT of the cervical spine with multiple coronal and sagittal reformatted images This CT examination was performed using dose optimization techniques as appropriate, variously including the following: *Automated exposure control *Adjustment of mA and/or kV according to patient size (this includes techniques or standardized protocols for targeted exams where dose is matched to indication/reason for exam; i.e. extremities or head) *Use of iterative reconstruction technique DLP: 1459 mGy-cm FINDINGS: No fractures or acute appearing subluxations noted. Grade 1 degenerative anterolisthesis of C3 on C4 is present. Multilevel intervertebral disc space narrowing, endplate osteophytosis and mild facet hypertrophic changes are identified. Visualized lung apices are clear. No prevertebral fluid collections or soft tissue inflammatory changes identified. The visualized lung apices are clear. Within the incidentally visualized intracranial structures, no hemorrhage, tumors or definitive acute infarcts noted. CT/CT cervical spine wo IV con IMPRESSION: *No acute abnormalities. *Moderate multilevel chronic spondylosis of the cervical spine.
--- NOTE | ~2023-11-24 | CT_ITS ---
EXAMINATION: CT CHEST WITHOUT CONTRAST CLINICAL INFORMATION: Fall, hit head, nose and jaw. COMPARISON: None available. TECHNIQUE: Multidetector volumetric CT imaging of the chest was done. Axial MIP volume rendering provided. Sagittal and coronal reformatted images were obtained. This CT examination was performed using dose optimization techniques as appropriate, variously including the following: *Automated exposure control *Adjustment of mA and/or kV according to patient size (this includes techniques or standardized protocols for targeted exams where dose is matched to indication/reason for exam; i.e. extremities or head) *Use of iterative reconstruction technique DLP: 459 mGy-cm FINDINGS: Lungs and pleura: No pleural effusions or pneumothoraces. No focal pulmonary consolidation. Mild focal coarse interstitial opacities and peribronchial wall thickening is noted peripherally within the left lung base. No endobronchial lesions identified. Mediastinum: Partial visualization of a 1.2 cm nodule within the left lobe of the thyroid which on the basis of this examination warrants no additional imaging follow-up. No mediastinal lymphadenopathy. Mild scattered calcific atherosclerosis of the transverse aorta. Normal caliber of the thoracic aorta. No abnormal mediastinal fluid collections. Normal heart size. No pericardial thickening or fluid collections. Mild aortic leaflet calcifications. No coronary artery calcific atherosclerosis identified. CHEST WALL: No axillary lymphadenopathy. No chest wall inflammatory changes. Visualized abdominal structures: The adrenal glands are normal in appearance. The visualized liver and spleen appear intact. Osseous structures: No fractures identified. No vertebral body compression deformities. Moderate multilevel anterior endplate osteophytosis of the thoracic spine. CT/CT chest wo IV con IMPRESSION: *Mild left lower lobe bronchial and peribronchial inflammatory changes which may represent infection or aspiration pneumonitis; otherwise, no acute abnormalities identified. No acute traumatic abnormalities.
--- NOTE | ~2023-11-24 | CT_ITS ---
EXAMINATION: CT FACIAL BONES WITHOUT CONTRAST CLINICAL INFORMATION: Hit head. Nose and jaw. COMPARISON: None available. TECHNIQUE: Noncontrast CT of the facial bones was performed. This CT examination was performed using dose optimization techniques as appropriate, variously including the following: *Automated exposure control *Adjustment of mA and/or kV according to patient size (this includes techniques or standardized protocols for targeted exams where dose is matched to indication/reason for exam; i.e. extremities or head) *Use of iterative reconstruction technique DLP: 350 mGy-cm FINDINGS: There is no acute facial bone fracture. Please note, evaluation of the mandible is limited secondary to motion artifact. There is severe circumferential mucosal thickening throughout the left maxillary sinus. The frontal sinuses, ethmoid air cells, left sphenoid sinus, and right maxillary sinus are clear. There is a minimal amount of mucosal thickening within the posterior aspect of the right sphenoid sinus. The nasal septum is markedly deviated towards the left side. There is a leftward projecting bony spur. The nasal passages are clear of fluid. The orbits are symmetric and within normal limits. The visualized brain parenchyma demonstrates microvascular ischemic change. The ventricles are normal in size. No intracranial hemorrhage is identified. The mastoid air cells are clear. CT/CT facial bones wo IV con IMPRESSION: No acute facial bone fracture is identified. Please note, however, that evaluation of the mandible is markedly limited secondary to motion artifact. If there is continued concern for a mandible fracture, mandible radiographs could be performed to further evaluate this. There is chronic appearing deformity of the nasal septum which is deviated towards the left side. There is no evidence of acute nasal bone fracture. Severe left maxillary sinus mucosal disease.
--- NOTE | ~2023-11-24 | XR_ITS ---
EXAMINATION: XR KNEE, LEFT CLINICAL INFORMATION: Status post fall with large hematoma. COMPARISON: None available. TECHNIQUE: Four views of the left knee. FINDINGS: Alignment is anatomic. Mild medial tibiofemoral cartilage space loss. No significant joint effusion. There is prepatellar soft tissue swelling no displaced fracture. XR/XR knee LT 4V IMPRESSION: Prepatellar soft tissue swelling.
--- NOTE | ~2023-11-24 | CT_ITS ---
EXAMINATION: CT HEAD WITHOUT CONTRAST CLINICAL INFORMATION: Fall. Head injury. COMPARISON: None available. TECHNIQUE: Contiguous axial imaging was performed from the skull base to vertex without intravenous administration of contrast. This CT examination was performed using dose optimization techniques as appropriate, variously including the following: *Automated exposure control *Adjustment of mA and/or kV according to patient size (this includes techniques or standardized protocols for targeted exams where dose is matched to indication/reason for exam; i.e. extremities or head) *Use of iterative reconstruction technique DLP: 598 mGy-cm FINDINGS: There is no acute intracranial hemorrhage. There is no evidence of acute/subacute cerebral or cerebellar infarction. There is extensive microvascular ischemic change. There is a chronic left internal capsule lacunar infarction. There is no midline shift or mass effect. No extra-axial fluid collection. No hydrocephalus. The orbits are symmetric and within normal limits. The calvarium is intact. The mastoid air cells are clear. There is a moderate degree of circumferential mucosal thickening throughout the left maxillary sinus. The nasal septum is deviated towards the left side. CT/CT head/brain wo IV con IMPRESSION: No acute intracranial abnormality. Extensive microvascular ischemic change. Chronic left internal capsule lacunar infarction.
--- NOTE | 2023-11-24 11:06 | ECG_ITS ---
Test Reason : SYNCOPE Blood Pressure : / mmHG Vent. Rate : 073 BPM Atrial Rate : 073 BPM P-R Int : 280 ms QRS Dur : 098 ms QT Int : 402 ms P-R-T Axes : 079 057 065 degrees QTc Int : 442 ms Sinus rhythm with 1st degree A-V block Nonspecific ST and T wave abnormality Abnormal ECG When compared with ECG of 06-MAR-2023 23:02, SD interval has increased Referred By: Generic ED Physician Electronically Signed By:Yogi Crowe
[2023-11-24 11:12] VITALS: BP 148/63; PULSE 72; RESP 13; TEMP 36.3; O2SAT 96
[2023-11-24 11:23] VITALS: BMI 30.1
--- NOTE | 2023-11-24 12:27 | ED.FALL ---
HPI - Fall General Chief Complaint: Fall Stated Complaint: fall Time Seen by Provider: 11/24/23 12:08 Source: patient Mode of arrival: ambulatory Limitations: no limitations History of Present Illness HPI Narrative: 78-year-old female past medical history significant for long-term anticoagulation history of external hemorrhoids history of gout inflammatory arthritis stress and urge incontinence dyslipidemia paroxysmal atrial fibrillation chronic kidney disease stage 3 COPD hypothyroidism and osteoporosis presents to the emergency department after a witnessed fall. Patient was outpatient physical therapy for her neck. She slipped and fell hit head jaw and left knee. She is on blood thinners she denies chest pain cough fevers or syncope she remembers everything she is not call when she slipped she states she has missed a step. complaint: fall Onset (ago): minute(s) Fall from: standing Fall witnessed: yes, by bystander Place fall occurred: other Loss of consciousness: none Context: tripped/slipped Related Data Home Medications ?Medication ?Instructions ?Recorded ?Confirmed apixaban 5 mg tablet (Eliquis) 5 mg PO BID 05/05/20 09/08/23 flecainide 50 mg tablet 75 mg PO Q12H 09/09/22 09/08/23 diltiazem HCl 240 mg 240 mg PO DAILY 03/07/23 09/08/23 capsule,extended release 24 hr Previous Rx's ?Medication ?Instructions ?Recorded albuterol sulfate 90 mcg/actuation 2 puff inhalation Q6H PRN 05/01/23 aerosol inhaler shortness of breath or wheezing #8.5 grams levothyroxine 75 mcg tablet 75 mcg PO DAILY #90 caps 11/10/23 rosuvastatin 5 mg tablet 5 mg PO 2XW 90 days #26 tabs 11/10/23 Allergies Allergy/AdvReac Type Severity Reaction Status Date / Time tetracycline [TETRACYCLINE] Allergy Unknown ITCHINESS, Verified 11/24/23 11:24 rash nitrofurantoin Allergy Swelling Verified 11/24/23 11:24 atorvastatin [Lipitor] AdvReac Unknown Muscle pain Verified 11/24/23 11:24 bactrim Allergy Unknown Elevated Uncoded 11/24/23 11:24 LFTs/Itching/Nausea fentanyl AdvReac Severe Unconscious Uncoded 11/24/23 11:24 Review of Systems Review of Systems: Review of systems: General: Patient denies any fever chills recent illness or falls Musculoskeletal: Denies back pain or body aches or other injuries HEENT: denies headache, runny nose, ear pain Respiratory: denies shortness of breath, cough Cardiovascular: no chest pain or palpitations : denies dysuria, frequency Abdomen: no nausea vomiting denies abdominal pain Extremities: no swelling, no pain Skin: no diaphoresis Yes all other systems are reviewed and are negative PMFSH Past Medical History Medical History 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 External hemorrhoids Hyperuricemia Vitamin D deficiency Impaired fasting glucose Inflammatory arthritis Multinodular thyroid Mixed stress and urge urinary incontinence Dyslipidemia Paroxysmal atrial fibrillation Chronic kidney disease, stage 3 Osteoporosis COPD (chronic obstructive pulmonary disease) Acquired hypothyroidism Surgical History Hx of colonoscopy S/P partial hysterectomy History of section Family History Family History Father CVA (cerebral vascular accident) AAA (abdominal aortic aneurysm) Mother Diabetes mellitus HTN (hypertension) Sister Diabetes mellitus Son Substance use disorder Son Substance use disorder Social History Social History Household Members: Children Housing: Unknown / Unable to assess Alcohol intake: current Alcohol intake frequency: does not drink Patient Tobacco Use Status: Former Tobacco user Years Smoked: 20 years Smoked in Last 30 Days: No e-Cigarette/Vaping Use: Never Used Use of substances other than those prescribed or required for medical reasons: No Advance Directives: Yes Advance Directives on File: Yes Advance Directives Date on File: 05/30/20 Do you have a plan to hurt others: No Plan Current occupational status: retired Cognitive needs: No Hearing needs: No Vision needs: Yes Physical Exam Vital Signs: Vital Signs: Last Vital Signs Temp 97.3 F 11/24/23 11:12 Pulse 71 11/24/23 14:00 Resp 16 11/24/23 14:00 BP 119/53 L 11/24/23 14:00 Pulse Ox 93 11/24/23 14:00 O2 Del Method Room Air 11/24/23 14:00 BMI result Body Mass Index 30.1 Neurological exam: CN II- XII tested. Patient is alert and oriented to person place and time. Patient has no dysphagia or dysarthia, denies good vision in all four vision sosa no nystagmus on exam, good strength to upper and lower extremities with normal reflexes to brachioradialis, wrist, patella and achilles. Negative romberg, good finger to nose and heel to orantes. General: Well-appearing well-nourished in no signs of distress HEENT: Normocephalic atraumatic no hemotympanum septal hematoma Neck: No signs of JVD, no masses no tenderness or lymphadenopathy Cardiovascular: Regular rate and rhythm Respiratory: Clear to auscultation bilaterally Abdomen: Soft nontender no masses Extremities: Normal pedal pulses no signs of edema large hematoma to left knee she is able to bend and flex there is no pain patient hips she has full range of motion of her upper extremities Skin: Dry warm no rashes Back: No tenderness full ROM Course Course Course Narrative: Patient had labs CT head neck facial bones and chest as well as an x-ray of her knee there was delay in the CT and x-ray reads there was escalated to the neuropsychology division chief of hospitalist this but unknown problem. While the patient was calm and cooperative we are able to get CTs read after approximately 2 hours. Patient's CTs were unremarkable I will discharge the patient home Medications Administered Discontinued Medications Generic Name Dose Route Start Last Admin Trade Name Gaurangq PRN Reason Stop Dose Admin Acetaminophen 975 mg 11/24/23 12:33 11/24/23 12:51 Acetaminophen 325 Mg Tablet PO 11/24/23 12:34 975 mg ONCE ONE Administration Medical Decision Making Medical Decision Making [facility] Narrative: I will give patient Tylenol send the patient for CTs x-rays and reassess Differential Diagnosis Differential Diagnoses: The differential diagnosis associated with the presentation includes Acute intracranial hemorrhage facial fractures as above fractures cervical spine injury knee fracture fall Admission/Observation Consideration of admission/observation: Escalation of care including admission/observation considered Lab Data [facility] Lab Attestation statement: I reviewed the patient's lab results. 11/24/23 12:48 11/24/23 12:48 Labs: Lab Results 11/24/23 Range/Units 12:48 WBC 10.5 (4.8-10.8) X10*3/uL RBC 4.77 (4.20-5.50) X10*6/uL Hgb 14.3 (12.0-16.0) g/dl Hct 42.2 (37.0-47.0) % MCV 88.5 (80.0-98.0) fL MCH 30.0 (27.0-33.0) pg MCHC 33.9 (31.0-35.0) g/dl RDW 12.6 (11.0-16.0) % Plt Count 225 D (160-400) X10*3/uL MPV 8.1 L (9.4-12.3) fL Immature Gran % (Auto) 0.7 H (0.0-0.4) % Neut % (Auto) 81.3 H (45-73) % Lymph % (Auto) 8.2 L (20-40) % [place] % (Auto) 7.1 (2-11) % Eos % (Auto) 2.0 (0-4) % Baso % (Auto) 0.7 (0-2) % Lymph # (Auto) 0.9 L (1.2-4.9) X10*3/uL [place] # (Auto) 0.7 (0.1-1.2) X10*3/uL Eos # (Auto) 0.2 (0.0-0.4) X10*3/uL Baso # (Auto) 0.1 (0.0-0.2) X10*3/uL Abs Immat Gran (auto) 0.07 H (0.00-0.03) X10*3/uL Absolute Neuts (auto) 8.5 H (2.0-8.3) x10*3/uL Absolute Nucleated RBC 0.000 (0.0-0.012) X10*3/uL Nucleated RBC % (auto) 0.0 (0.0-0.2) /100WBC Sodium 129 L (135-145) mmol/L Potassium 3.6 (3.3-5.1) mmol/L Chloride 92 L (96-108) mmol/L Carbon Dioxide 27 (22-29) mmol/L Anion Gap 14 (12-20) BUN 12 (9-16) mg/dL Creatinine 0.85 (0.5-1.4) mg/dL Estim Creat Clear Calc 52.7 Estimated GFR > 60 Random Glucose 104 (60-115) mg/dL Calcium 10.0 (8.4-10.2) mg/dL Radiology Impression Discussion of test interpretation with radiology: I have reviewed the radiologist's reading. External Record Review External record reviewed: Inpatient record, Office record and Outpatient record Discharge Plan Discharge Clinical Impression: Head injury, Concussion, Contusion of knee Patient Disposition: Home, Self-Care Instructions: Concussion (ED), Contusion in Adults (ED), Head Injury (ED) Additional Instructions: You were seen today after falling hitting head you had CT head and neck facial bones as well as her chest. It was sudden x-ray of the knee which is unremarkable. We will send some blood work which was all normal. If you have any other concerns worsening headache please do not hesitate to come back to the emergency department. Prescriptions: No Action albuterol sulfate 90 mcg/actuation HFA aerosol inhaler 2 puff inhalation Q6H PRN (Reason: shortness of breath or wheezing) Qty: 8.5 0RF levothyroxine 75 mcg tablet 75 mcg PO DAILY Qty: 90 1RF rosuvastatin 5 mg tablet 5 mg PO 2XW 90 Days Qty: 26 1RF diltiazem HCl 240 mg capsule,extended release 24hr 240 mg PO DAILY Eliquis 5 mg tablet 5 mg PO BID Hold Instructions: Resume on 03/12/23. Resume Eliquis on 03/12/23 Rx Instructions: stop for 3 days before colonoscopy flecainide 50 mg tablet 75 mg PO Q12H Print Language: Portuguese
[2023-11-24] MEDS: Acetaminophen 325 MG TABLET 975 MG PO (12:51)
[2023-11-24 12:52] LABS: MANUAL DIFF FLAG NO
[2023-11-24 12:55] LABS: Basophils Absolute Auto 0.1 X10*3/uL (0.0-0.2); Basophils Percent Auto 0.7 % (0-2); Eosinophils Absolute Auto 0.2 X10*3/uL (0.0-0.4); Hematocrit 42.2 % (37.0-47.0); Hemoglobin 14.3 g/dl (12.0-16.0); Imm Gran Abs Auto 0.07 X10*3/uL (0.00-0.03); Imm Gran Pct Auto 0.7 % (0.0-0.4); Lymphocytes Absolute Auto 0.9 X10*3/uL (1.2-4.9); Lymphocytes Percent Auto 8.2 % (20-40); Mean Corpuscular HGB Conc 33.9 g/dl (31.0-35.0); Mean Corpuscular Volume 88.5 fL (80.0-98.0); Mean Platelet Volume 8.1 fL (9.4-12.3); Monocytes Absolute Auto 0.7 X10*3/uL (0.1-1.2); Monocytes Percent Auto 7.1 % (2-11); Neutrophils Absolute Auto 8.5 x10*3/uL (2.0-8.3); Neutrophils Percent Auto 81.3 % (45-73); Platelet Count 225 X10*3/uL (160-400); Red Blood Count 4.77 X10*6/uL (4.20-5.50); Red Cell Distribution Width 12.6 % (11.0-16.0); White Blood Count 10.5 X10*3/uL (4.8-10.8)
[2023-11-24 13:06] LABS: Anion Gap 14 (12-20); Blood Urea Nitrogen 12 mg/dL (9-16); Carbon Dioxide 27 mmol/L (22-29); Chloride 92 mmol/L (96-108); Creatinine Clr Calc Pharmacy 52.7; Estimated Glomerular Filt Rate > 60; Glucose Random 104 mg/dL (60-115); Potassium 3.6 mmol/L (3.3-5.1); Sodium 129 mmol/L (135-145)
[2023-11-24 14:00] VITALS: BP 119/53; PULSE 71; RESP 16; O2SAT 93
[2023-11-24 16:11] VITALS: BP 134/79; PULSE 70; RESP 19; TEMP 36.6; O2SAT 98
== END 2023-11-24 16:12 | disposition home or self-care (01) ==
PROVIDERS: Emergency Provider Student in an Organized Health Care Education/Training Program; PCP Internal Medicine
DX: S06.0X0A Concussion without loss of consciousness, initial encounter (principal); S80.02XA Contusion of left knee, initial encounter; W01.0XXA Fall on same level from slipping, tripping and stumbling without subsequent striking against object, initial encounter; I48.0 Paroxysmal atrial fibrillation; N18.30 Chronic kidney disease, stage 3 unspecified; Z79.01 Long term (current) use of anticoagulants; Z87.891 Personal history of nicotine dependence; Y93.89 Activity, other specified; Y92.238 Other place in hospital as the place of occurrence of the external cause; Y99.9 Unspecified external cause status
CPT/HCPCS: 36415; 70450; 70486; 71250; 72125; 73564; 80048; 85025; 93005; 99284

== ENCOUNTER → 2023-11-24 11:06 | Outpatient (BNV) | payer MEDICARE, BC, SELFPAY | PROVIDERS: Emergency Provider Student in an Organized Health Care Education/Training Program; PCP Internal Medicine; Visit Provider Internal Medicine Cardiovascular Disease | DX: R55 Syncope and collapse (principal); R94.31 Abnormal electrocardiogram [ECG] [EKG] | CPT/HCPCS: 93010 ==

== ENCOUNTER 2024-01-03 14:00 | Outpatient (RCR) | payer MEDICARE, BC, SELFPAY ==
--- NOTE | 2023-11-14 13:23 | MHC.PT.EP ---
[facility] [place] [facility] [place] Office [place] Office [address] [place] [address] [phone] F: [phone] F: [phone] F: [phone] F: [phone] Physical Therapy Plan of Care Date of Evaluation: 11/14/23 Date of Surgery: Diagnosis: CERVICALGIA Assessment: 78 YO FEMALE REF TO PT FOR Lt > Rt CERVICAL SORENESS - SHE DENIES RADICULAR SYMPTOMS AT THIS TIME. OF IMPORTANCE, THE Pt HAS A H/O ATRIAL FIBRILLATION AND SHE IS TAKING ELIQUIS BID. SHE HAS BEEN SLEEPING UPRIGHT IN A RECLINER DUE TO HER NECK PAIN. SKILLED PT IS INDICATED TO REDUCE PAIN AND TISSUE TENSION, IMPROVE POSTURE AND HER ABILITY TO CORRECT BODY MECHANICS WHEN NEEDED, NORMALIZE CERVICAL/THORACIC AROM AND STABILITY OF HER SPINE. Pt IS IN AGREEMENT WITH POC AND IS VERY MOTIVATED TO PARTICIPATE AND ASSIST IN DEV A HEP FOR SX MGMT. Frequency and Duration: The patient will be seen 2 x WK x 4 WKS Short Term Goals: *DECR CERV/UT PAIN TO 2-3/10 *Pt INDEP SELF CORRECT POSTURE W SIMUL ADLs *INITIATE HEP *IMPROVE CERV AROM Skilled Nursing Goals: *Pt INDEP W HEP AND SELF -SX MGMT TECHN *THE Pt REPORT IMPROVED SLEEPING ABILITY, IMPROVED NPDI, AT EVAL *Pt DEMON IMPROVED CERV AROM W REDUCED UPPER TRAP COMPENSATION AND SECONDARY IMPROVED FUNCTIONAL BALANCE Treatment Plan: Modalities to reduce pain, spasms and effusion. Manual therapy to restore motion and function. Therapeutic exercise to improve strength and flexibility. Neuromuscular re-education for posture and balance. Therapeutic activities to return to functional activities of daily living. Electronically signed by: KOKO CESPEDES,PT Please sign and return to therapist. Thank you for your referral.
--- NOTE | 2024-01-03 15:01 | MHC.PT.DC ---
[facility] [place] Office [place] Office [place] Office [address] [place] [address] [facility] [phone] F: [phone] F: [phone] F: [phone] F: [phone] Physical Therapy Discharge Report Diagnosis: CERVICALGIA Date of Surgery: Date of Evaluation: 11/14/23 Date of Discharge: 01/03/24 Treatments to Date: 10 Cancellations to Date: 4 No Shows to Date: 0 Discharge Status: Improved Function Independent with HEP Recommend MD Follow-up Discharge Summary: CORA HAS PREOGRESSED IN PT WITH REDUCED CERV PAIN , SHE CAN SELF- CORRECT HER POSTURE- THE Pt HAS IMPROVED SCAP MM ACTIV AND HAS A THOROUGH, PROGRESSIVE HEP- WE REVIEWED BODY MECH AND AFTER PERF ABOVE THER EXER, SHE NOTED DECR Lt CERV PAIN; SHE MET HER PT GOALS TO MAX POTENTIAL AT THIS TIME Electronically signed by: KOKO CESPEDES,PT Please sign and return to therapist. Thank you for your referral.
== END 2024-01-03 15:00 | disposition home or self-care (01) ==
LOC: HO.PT 14:00
PROVIDERS: PCP Internal Medicine; Visit Provider Internal Medicine
DX: M54.2 Cervicalgia (principal)
CPT/HCPCS: 97035; 97110; 97140; 97162; 97530; 97535

== ENCOUNTER 2024-01-05 09:42 | Outpatient (AMB) | payer MEDICARE, BC, SELFPAY ==
--- NOTE | 2024-01-05 10:08 | A.OFFVIS_ITS ---
Intake Vital Signs 01/05/24 10:09 Height 5 ft 3 in Weight 164 lb BMI 29.0 BP 130/74 Blood Pressure Location Lt brachial Position Sitting Pulse 75 Pulse Source Pulse Oximeter Pulse Oximetry (%) 95 Oxygen Delivery Method Room Air Intake Visit Reasons: AWV [id number] Intake Note: Pt is here today for her AWV: Last mammogram 01/25/23, bone density scan 01/25/23, colonoscopy 05/31/22 Allergies tetracycline [TETRACYCLINE] Allergy (Unknown, Verified 01/05/24 10:27) ITCHINESS, rash nitrofurantoin Allergy (Verified 01/05/24 10:27) Swelling atorvastatin [Lipitor] Adverse Reaction (Unknown, Verified 01/05/24 10:27) Muscle pain bactrim Allergy (Unknown, Uncoded 01/05/24 10:27) Elevated LFTs/Itching/Nausea fentanyl Adverse Reaction (Severe, Uncoded 01/05/24 10:27) Unconscious PFSH Medical History 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 External hemorrhoids Hyperuricemia Vitamin D deficiency Impaired fasting glucose Inflammatory arthritis Multinodular thyroid Mixed stress and urge urinary incontinence Dyslipidemia Paroxysmal atrial fibrillation Chronic kidney disease, stage 3 Osteoporosis COPD (chronic obstructive pulmonary disease) Acquired hypothyroidism Surgical History Hx of colonoscopy S/P partial hysterectomy History of section Family History Father CVA (cerebral vascular accident) AAA (abdominal aortic aneurysm) Mother Diabetes mellitus HTN (hypertension) Sister Diabetes mellitus Son Substance use disorder Son Substance use disorder Social History Household Members: Children Housing: Unknown / Unable to assess Alcohol intake: current Alcohol intake frequency: does not drink Patient Tobacco Use Status: Former Tobacco user Years Smoked: 20 years e-Cigarette/Vaping Use: Never Used Advance Directives Date on File: 05/30/20 Current occupational status: retired Cognitive needs: No Hearing needs: No Vision needs: Yes Questionnaire Medicare Wellness Checkup [age] What gender do you identify with?: female During the past 4 weeks, how much have you been bothered by emotional problems such as feeling anxious, depressed, irritable, sad or downhearted, and blue?: slightly During the past 4 weeks, has your physical & emotional health limited your social activities with family, friends, neighbors, or groups?: slightly During the past 4 weeks, how much bodily pain have you generally had?: mild pain During the past 4 weeks, was someone available to help you if you needed & wanted help?: yes, quite a bit During the past 4 weeks, what was the hardest physical activity you could do for at least 2 minutes?: moderate Can you get to places out of walking distance without help? (For eg., can you travel alone on buses, taxis or drive your car?): Yes Can you go shopping for groceries or clothes without someone's help?: Yes Can you prepare your own meals?: Yes Can you do your housework without help?: Yes Because of any health problems, do you need the help of another person with your personal care needs such as eating, bathing, dressing or getting around the house?: No Can you handle your own money without help?: Yes During the past 4 weeks, how would you rate your health in general?: good During the past 4 weeks how have things been going for you?: pretty well Are you having difficulties driving your car?: no Do you always fasten your seat belt when you are in a car?: yes, usually During past 4 weeks, have you been bothered by the following: never: Sexual problems? and Problems using the telephone?, seldom: Teeth or denture problems? and Tiredness or fatigue? and sometimes: Falling or dizzy when standing up and Trouble eating well? Have you fallen 2 or more times in the past year?: Yes Are you afraid of falling?: Yes Are you a smoker?: no During the past 4 weeks, how many drinks of wine, beer, or other alcoholic beverages did you have?: no alcohol at all Do you exercise for about 20 minutes 3 or more times a week?: yes, all the time Have you been given information to help with the following?: no: Hazards in your house that might hurt you? and no: Keeping track of your medications? How often do you have trouble taking medicines the way you have been told to take them?: I always take medicine as prescribed How confident are you that you can control & manage most of your health problems?: somewhat confident What is your race?: White PHQ-9 Over the last 2 weeks, how often have you been bothered by any of the following problems? 1. Little interest or pleasure in doing things: not at all 2. Feeling down, depressed, or hopeless: not at all 3. Trouble falling or staying asleep, or sleeping too much: not at all 4. Feeling tired or having little energy: not at all 5. Poor appetite or overeating: not at all 6. Feeling bad about yourself - or that you are a failure or have let yourself or your family down: not at all 7. Trouble concentrating on things, such as reading the newspaper or watching television: not at all 8. Moving or speaking so slowly that other people could have noticed. Or the opposite - being so fidgety or restless that you have been moving around a lot more than usual: not at all 9. Thoughts that you would be better off or of hurting yourself in some way: not at all Total score: 0 Depression Screening Interpretation: Negative Depression Screening Done: Yes 13437 - PHQ-9 Billing: Yes Source: Developed by Drs. Orlando Forbes, Leah Yepez, Samuel Pelayo and colleagues, with an educational cuba from [employer]. Quality Reporting (2019) Depression/Bipolar (159/160/161/177) PHQ-9: Total score: 0 Coding
[2024-01-05 10:09] VITALS: BP 130/74; PULSE 75; O2SAT 95; BMI 29.0
--- NOTE | 2024-01-05 10:51 | A.OFFVIS_ITS ---
Intake Vital Signs 01/05/24 10:09 01/05/24 10:53 Height 5 ft 3 in Weight 164 lb BMI 29.0 29.0 BP 130/74 Blood Pressure Location Lt brachial Position Sitting Pulse 75 Pulse Source Pulse Oximeter Pulse Oximetry (%) 95 Oxygen Delivery Method Room Air Intake Visit Reasons: AWV [id number] Allergies tetracycline [TETRACYCLINE] Allergy (Unknown, Verified 01/05/24 10:52) ITCHINESS, rash nitrofurantoin Allergy (Verified 01/05/24 10:52) Swelling atorvastatin [Lipitor] Adverse Reaction (Unknown, Verified 01/05/24 10:52) Muscle pain bactrim Allergy (Unknown, Uncoded 01/05/24 10:52) Elevated LFTs/Itching/Nausea fentanyl Adverse Reaction (Severe, Uncoded 01/05/24 10:52) Unconscious Medication List - Last Reconciled 01/05/24 by Kala Lundberg MD albuterol sulfate 90 mcg/actuation 2 puffs inhalation Q6H PRN apixaban (Eliquis) 5 mg PO BID diltiazem HCl CD 240 mg PO DAILY flecainide 75 mg PO Q12H hydrocortisone 2.5% (Proctosol HC) 1 appl TN BID-QID PRN levothyroxine 75 mcg PO DAILY rosuvastatin 5 mg PO 2XW 90 days HPI AWV G0439 HPI Details SWV ? 78 year old lady with past medical history for dyslipidemia, paroxysmal atrial fibrillation currently on flecainide and apixaban, has COPD, acquired hypothyroidism, osteoporosis and chronic kidney disease stage 3 mixed stress and urge incontinence and inflammatory arthritis as well as hyperuricemia, here today for subsequent annual wellness visit She has been feeling well, with no new complaints at present time. Up-to-date with her lipid screening, done November of 2022 together with random blood sugar which all came back within normal limits. She is up-to-date with her screening mammogram done January of last year, and had a colonoscopy done 03/11/2023 with a hyperplastic polyp removed by Dr. Reyes, no further testing needed. Had a bone density scan done in 2022 which showed presence of osteopenia in left femur left femoral neck and osteoporosis in her lumbar spine. She was previously being seen and receiving Prolia injection with Dr. Yuan, but did not keep her appointment for the 2nd infusion. Was hesitant at that time to continue with the treatment. Patient states that she is going to get her flu and COVID vaccine today, up-to-date with her pneumonia vaccination and shingles vaccine as well as her RSV vaccine. .? Medical / Social History Reviewed? Past Medical History ?Yes . ? [place] of Care / Care Team list updated ?Yes . ? Surgical/Hospitalization History ?Yes . ? Current Medications (including OTC and supplements) ?Yes . ? Family History ?Yes . ? Tobacco Control form ?Yes . ? AUDIT-C (Alcohol use) form ?Yes . ? Illicit drug use in Social History ?Yes . ? Current diagnosis of depression? ?No ? Appropriate PHQ2/PHQ9 completed ?Yes . ? Data entered by ?[employer] and reviewed by provider ? Fall Risk ? Fall History? Have you had any falls with injury in the past year? ?yes. ? Have you had two or more falls in the past year? ?yes ? HRA filled out by the patient, reviewed by Provider and scanned. ? SWV ? Balance? Romberg ?negative . ? Tandem walk ?Yes . ? Walk and Turn ?Yes . ? Rise from sit to stand ?Yes . ?Vision? Corrective lens ?Yes ? Vision screen ? Up-to-date, goes to [facility], diagnosed with dry AMD and cataract ?Hearing? Whisper test ?pass . ?Written Plan?Completed. See Patient Documents.? [facility], [facility] Medical History Current use of long term acute care registered nurse anticoagulation External hemorrhoids Hyperuricemia Vitamin D deficiency Impaired fasting glucose Inflammatory arthritis Multinodular thyroid Mixed stress and urge urinary incontinence Dyslipidemia Paroxysmal atrial fibrillation Chronic kidney disease, stage 3 Osteoporosis COPD (chronic obstructive pulmonary disease) Acquired hypothyroidism Surgical History Hx of colonoscopy S/P partial hysterectomy History of section Family History Father CVA (cerebral vascular accident) AAA (abdominal aortic aneurysm) Mother Diabetes mellitus HTN (hypertension) Sister Diabetes mellitus Son Substance use disorder Son Substance use disorder Social History Household Members: Children Housing: Unknown / Unable to assess Alcohol intake: current Alcohol intake frequency: does not drink Patient Tobacco Use Status: Former Tobacco user Years Smoked: 20 years e-Cigarette/Vaping Use: Never Used Advance Directives Date on File: 05/30/20 Current occupational status: retired Cognitive needs: No Hearing needs: No Vision needs: Yes Questionnaire Medicare Wellness Checkup [age] What gender do you identify with?: female During the past 4 weeks, how much have you been bothered by emotional problems such as feeling anxious, depressed, irritable, sad or downhearted, and blue?: not at all During the past 4 weeks, has your physical & emotional health limited your social activities with family, friends, neighbors, or groups?: slightly During the past 4 weeks, how much bodily pain have you generally had?: very mild pain During the past 4 weeks, was someone available to help you if you needed & wanted help?: yes, quite a bit During the past 4 weeks, what was the hardest physical activity you could do for at least 2 minutes?: moderate Can you get to places out of walking distance without help? (For eg., can you travel alone on buses, taxis or drive your car?): Yes Can you go shopping for groceries or clothes without someone's help?: Yes Can you do your housework without help?: No Because of any health problems, do you need the help of another person with your personal care needs such as eating, bathing, dressing or getting around the house?: No Can you handle your own money without help?: Yes During the past 4 weeks, how would you rate your health in general?: good During the past 4 weeks how have things been going for you?: good & bad parts about equal Are you having difficulties driving your car?: no Do you always fasten your seat belt when you are in a car?: yes, usually During past 4 weeks, have you been bothered by the following: never: Falling or dizzy when standing up, Sexual problems? and Trouble eating well?, seldom: Problems using the telephone? and sometimes: Teeth or denture problems? and Tiredness or fatigue? Have you fallen 2 or more times in the past year?: No Are you afraid of falling?: Yes Are you a smoker?: no During the past 4 weeks, how many drinks of wine, beer, or other alcoholic beverages did you have?: no alcohol at all Do you exercise for about 20 minutes 3 or more times a week?: yes, most of the time Have you been given information to help with the following?: yes: Hazards in your house that might hurt you? and yes: Keeping track of your medications? How often do you have trouble taking medicines the way you have been told to take them?: I always take medicine as prescribed How confident are you that you can control & manage most of your health problems?: somewhat confident What is your race?: White Mini Mental State Exam (MMSE) Orientation What is the (year) (season) (date) (day) (month)?: year (2023), season (Summer), date (01/05/2024), day () and month (December) Where are we (state) (county) (town or city) (hospital) (floor)?: state ([place]), county ([place]), town or city ([place]) and hospital/clinic ([facility]) Score Score: 9 Activity of Daily Living Bathing - sponge bath, tub bath or shower: receives no assistance (gets in/out by self, if usual bathing means Dressing - getting clothes from closets & drawers, including inner/outer garments & fasteners.: gets clothes & gets completely dressed without help Toileting - going to the 'toilet room' for urine/bowel elimination & cleaning self/arranging clothes: goes to toilet room, cleans self, arranges clothes without help Transfer: moves in & out of bed and chair without help (may use support object) Continence: has occasional 'accidents' Feeding: feeds self without help Total Score: 0 Information obtained from: patient Using telephone: independent Traveling: independent Shopping: independent Preparing meals: independent Housework: independent Taking medicine: independent Managing money: independent PHQ-9 Over the last 2 weeks, how often have you been bothered by any of the following problems? 1. Little interest or pleasure in doing things: not at all 2. Feeling down, depressed, or hopeless: not at all 3. Trouble falling or staying asleep, or sleeping too much: not at all 4. Feeling tired or having little energy: more than half the days 5. Poor appetite or overeating: several days 6. Feeling bad about yourself - or that you are a failure or have let yourself or your family down: not at all 7. Trouble concentrating on things, such as reading the newspaper or watching television: several days 8. Moving or speaking so slowly that other people could have noticed. Or the opposite - being so fidgety or restless that you have been moving around a lot more than usual: not at all 9. Thoughts that you would be better off or of hurting yourself in some way: not at all Total score: 4 Depression Screening Interpretation: Negative Depression Screening Done: Yes 41753 - PHQ-9 Billing: Yes Source: Developed by Drs. Orlando Forbes, Leah Yepez, Samuel Pelayo and colleagues, with an educational cuba from [employer]. Physical Exam Vital Signs: Last Vital Signs Pulse 75 01/05/24 10:09 BP 130/74 01/05/24 10:09 Pulse Ox 95 01/05/24 10:09 Oxygen Delivery Method Room Air 01/05/24 10:09 BMI result Body Mass Index 29.0 Results Reviewed Results Reviewed: Assessment & Plan Assessment & Plan (1) Encounter for subsequent annual wellness visit (AWV) in Medicare patient: Code(s): Z00.00 - Encounter for general adult medical examination without abnormal findings Plan: Medical wellness checklist discussed with patient, reviewed and updated. Patient already has healthcare proxy and MOLST form completed on past visits (2) Osteoporosis: Code(s): M81.0 - Age-related osteoporosis without current pathological fracture Qualifiers: Osteoporosis type: age-related Presence of current pathological fracture: without current pathological fracture Qualified Code(s): M81.0 - Age- related osteoporosis without current pathological fracture Plan: Patient with history of recurrent falls, discussed increased risk for getting fractures, patient will be referred to endocrine clinic again to resume treatm ent for her osteoporosis. Advised to stay active, and is continue taking vitamin-D 3 supplements at least 2000 units daily and calcium from dietary sources (3) Acquired hypothyroidism: Code(s): E03.9 - Hypothyroidism, unspecified Plan: TSH with free T4 ordered, continued on current dose of levothyroxine at 75 mcg daily (4) Chronic kidney disease, stage 3: Code(s): N18.30 - Chronic kidney disease, stage 3 unspecified Plan: Continue avoidance of NSAIDs, (5) Dyslipidemia: Code(s): E78.5 - Hyperlipidemia, unspecified Plan: Currently on rosuvastatin 5 mg 1 tablet twice a week, fasting lipid panel ordered (6) Paroxysmal atrial fibrillation: Comment: Followed by Dr. Mendoza Code(s): I48.0 - Paroxysmal atrial fibrillation Plan: Currently on flecainide 75 mg taken 1 tablet every 12 hours and diltiazem 240 mg daily , followed by cardiology (7) COPD (chronic obstructive pulmonary disease): Comment: Currently asymptomatic , not on any inhalers Code(s): J44.9 - Chronic obstructive pulmonary disease, unspecified Qualifiers: COPD type: unspecified COPD Qualified Code(s): J44.9 - Chronic obstructive pulmonary disease, unspecified Plan: Has albuterol inhaler to use as needed for episodes of bronchospasm and wheezing Orders: Orders Lipid Panel 01/05/24 E03.9 - Hypothyroidism, unspecified, E04.2 - Nontoxic multinodular goiter, E78.5 - Hyperlipidemia, unspecified, M81.0 - Age-related osteoporosis without current pathological fracture, N18.30 - Chronic kidney disease, stage 3 unspecified, R73.01 - Impaired fasting glucose Vitamin D 25-OH Total 01/05/24 E03.9 - Hypothyroidism, unspecified, E04.2 - Nontoxic multinodular goiter, E78.5 - Hyperlipidemia, unspecified, M81.0 - Age- related osteoporosis without current pathological fracture, N18.30 - Chronic kidney disease, stage 3 unspecified, R73.01 - Impaired fasting glucose Alanine Aminotransferase 01/05/24 E03.9 - Hypothyroidism, unspecified, E04.2 - Nontoxic multinodular goiter, E78.5 - Hyperlipidemia, unspecified, M81.0 - Age- related osteoporosis without current pathological fracture, N18.30 - Chronic kidney disease, stage 3 unspecified, R73.01 - Impaired fasting glucose Aspartate Amino Transferase 01/05/24 E03.9 - Hypothyroidism, unspecified, E04.2 - Nontoxic multinodular goiter, E78.5 - Hyperlipidemia, unspecified, M81.0 - Age-related osteoporosis without current pathological fracture, N18.30 - Chronic kidney disease, stage 3 unspecified, R73.01 - Impaired fasting glucose Basic Metabolic Panel Fasting 01/05/24 E03.9 - Hypothyroidism, unspecified, E04.2 - Nontoxic multinodular goiter, E78.5 - Hyperlipidemia, unspecified, M81.0 - Age-related osteoporosis without current pathological fracture, N18.30 - Chronic kidney disease, stage 3 unspecified, R73.01 - Impaired fasting glucose Thyroid Stimulating Hormone 01/05/24 E03.9 - Hypothyroidism, unspecified, E04.2 - Nontoxic multinodular goiter, E78.5 - Hyperlipidemia, unspecified, M81.0 - Age-related osteoporosis without current pathological fracture, N18.30 - Chronic kidney disease, stage 3 unspecified, R73.01 - Impaired fasting glucose Free T4 (Free Thyroxine) 01/05/24 E03.9 - Hypothyroidism, unspecified, E04.2 - Nontoxic multinodular goiter, E78.5 - Hyperlipidemia, unspecified, M81.0 - Age- related osteoporosis without current pathological fracture, N18.30 - Chronic kidney disease, stage 3 unspecified, R73.01 - Impaired fasting glucose Referrals Endocrinology Referral M81.0 - Age-related osteoporosis without current pathological fracture Quality Reporting (2019) Depression/Bipolar (159/160/161/177) PHQ-9: Total score: 4 Coding Level of Care Code Medicare Subsequent (G0439) Diagnoses Encounter for subsequent annual wellness visit (AWV) in Medicare patient Z00.00 Age-related osteoporosis without current pathological fracture M81.0 Osteoporosis type: age-related Presence of current pathological fracture: without current pathological fracture Acquired hypothyroidism E03.9 Chronic kidney disease, stage 3 N18.30 Dyslipidemia E78.5 Paroxysmal atrial fibrillation I48.0 Chronic obstructive pulmonary disease, unspecified COPD type J44.9 COPD type: unspecified COPD CPT Codes Advance Care Planning - Advance Care Planning discussion: On file, no changes ([id number]) Advance Care Planning Advance Care Planning discussion: On file, no changes
[2024-01-05 10:53] VITALS: BMI 29.0
== END 2024-01-05 11:38 | disposition home or self-care (01) ==
PROVIDERS: PCP Internal Medicine; Visit Provider Internal Medicine
DX: Z00.00 Encounter for general adult medical examination without abnormal findings (principal); N18.30 Chronic kidney disease, stage 3 unspecified; I48.0 Paroxysmal atrial fibrillation; J44.9 Chronic obstructive pulmonary disease, unspecified; M81.0 Age-related osteoporosis without current pathological fracture; E03.9 Hypothyroidism, unspecified; E78.5 Hyperlipidemia, unspecified
CPT/HCPCS: 1123F; G0439

== ENCOUNTER 2024-01-05 11:21 | Outpatient (REF) | payer MEDICARE, BC, SELFPAY ==
[2024-01-05 13:51] LABS: Alanine Aminotransferase 13 U/L (0-31); Anion Gap 15 (12-20); Aspartate Amino Transferase 17 U/L (5-31); Blood Urea Nitrogen 12 mg/dL (9-16); Calcium 10.3 mg/dL (8.4-10.2); Carbon Dioxide 28 mmol/L (22-29); Chloride 93 mmol/L (96-108); Cholesterol 167 mg/dL (<200); Estimated Glomerular Filt Rate 57; Glucose Fasting 97 mg/dL (60-99); HDL Cholesterol 59 mg/dL (>40); LDL Cholesterol Calculated 91 mg/dL (<100); Potassium 4.3 mmol/L (3.3-5.1); Sodium 132 mmol/L (135-145); Triglycerides 89 mg/dL (<150)
[2024-01-05 14:16] LABS: Free T4 (Free Thyroxine) 1.45 ng/dL (0.71-1.85); Thyroid Stimulating Hormone 1.39 uIU/mL (0.32-4.0); Vitamin D 25-OH Total 30.9 ng/mL (>30)
== END 2024-01-05 11:22 | disposition home or self-care (01) ==
LOC: HO.HMGCLDS 11:21
PROVIDERS: PCP Internal Medicine; Visit Provider Internal Medicine
DX: E78.5 Hyperlipidemia, unspecified (principal); N18.30 Chronic kidney disease, stage 3 unspecified; M81.0 Age-related osteoporosis without current pathological fracture; E03.9 Hypothyroidism, unspecified; E04.2 Nontoxic multinodular goiter; R73.01 Impaired fasting glucose
CPT/HCPCS: 36415; 80048; 80061; 82306; 84439; 84443; 84450; 84460

== ENCOUNTER 2024-05-03 09:37 | Outpatient (REF) | payer MEDICARE, BC, SELFPAY ==
--- OUTSIDE RECORDS SUMMARY | 2024-05-03 09:54 | XMS_ITS | Data Portability ---
Author Organization [facility], , [facility] Address [address] [place] [address] Assessment Encounter Date Assessment Date Assessment LastModified by Organization Details LastModified Time 03/26/2010 03/26/2010 Digital bilatera l screening mammogram ?? Comparison: 11/24/2006 ?? No new suspicious dominant masses.?? Intramammary nodes/nodular densities bilaterally, stable.?? Benign appearing secretory calcifications inferiorly on the left have increased but there are no suspicious clusters of microcalcificatio n.?? Exam reviewed with CAD. Conclusion: No mammographic evidence of malignancy.?? Follow-up recommended in one year. BI-RADS 2, Benign. Not available 01/06/2011 02:23:11 01/20/2016 01/20/2016 undilated exam today [email or web address] Not available 01/20/2016 10:57:53 Plan of Treatment Reminders Order Date Submit Date Provider Last Modified By Organization Details Last Modified Time Details Appointments None record ed. Lab None record ed. Referral None record ed. Procedures None record ed. Surgeries None record ed. Imaging None record ed. Medication Orders None record ed. Patient TargetsNo targets recorded. Patient Instructions Encounter Date Encounter Id Patient Instructions Last Modified By Organization Details Last Modified Time 01/14/2015 [id number] cataracts-monito r . Rx change-new spectacle Rx given. RTC 1 year comp exam-cataracts. Patient wishes to have her epiphora addressed [email or web address] Not available 01/17/2015 15:45:52 01/20/2016 [id number] RTC 6 months for CEE or sooner prn [email or web address] Not available 01/20/2016 10:56:58 Reason for Referral None Reported. Results Created Date Observation Date Name Description Value Unit Range Abnormal Flag Note LastModifiedBy Organization Detail LastModifiedTime 04/06/20 10 03/26/2010 mammo gram, scree yariel No observ ation record ed. [facility] (Imaging) [address] , [place], [id number], 11/17/2012 04:34:18 Result Notes None recorded. Problems Name Problem SNOMED Code Status Onset Date Resolution Date Notes Provider Name and Address Organization Details Recorded Time Nuclear senile cataract 115255602 Active Alphonse Buckley, OD [address] [place], [address] , [facility] 5 15:45:52 Regular astigmatis m 38795108 Active Alphonse Buckley, OD [address] [place], [address] , [facility] 5 15:45:52 Mixed hyperlipid emia 543593269 Active 2004 Randi combs, [facility] 5 15:37:26 Presbyopia 36966306 Active 2008 Alphonse Buckley, OD [address] [place], [address] , [facility] 5 15:45:52 Cortical senile cataract 62213887 Active 2005 Alphonse Buckley, OD [address] [place], [address] , [facility] 5 15:45:52 Astigmatis m 92553221 Active 2005 Not Available [facility] 3 03:07:04 Corneal ulcer 88714551 Active 2005 Not Available [facility] 3 03:07:04 Neck pain 97796484 Completed 200503/14/2013 Not Available [facility] 3 02:00:32 Marginal corneal ulcer 62309352 Active 2006 Not Available [facility] 3 03:07:04 Glucose level outside reference range 218868150 Active 2004 Not Available [facility] 3 03:07:04 Incipient senile cataract 013882847 Active 2007 Not Available [facility] 3 03:07:04 Hypermetro lila 33969413 Active 2007 Alphonse Buckley, OD [address] [place] [address], [place], [address] , [facility] 5 15:45:52 Red eye Completed 200603/14/2013 Not Available [facility] 3 02:04:06 Keratoconj unctivitis 73465846 Active 2005 Not Available [facility] 3 03:07:04 Common cold 25286716 Completed 200403/14/2013 Not Available [facility] 3 02:00:24 On examinatio n - a rash Completed 200503/14/2013 Not Available [facility] 3 02:00:45 Dry eyes 118585445 Active 2005 Not Available [facility] 3 03:07:04 Osteoporos is 05548335 Active 2005 Not Available [facility] 3 03:07:04 Acute conjunctiv itis 27029332 Completed 200003/14/2013 Not Available [facility] 3 02:02:28 Malaise and fatigue 573821507 Completed 200403/14/2013 Not Available [facility] 3 02:00:14 Pain in eye 89052442 Completed 200603/14/2013 Not Available [facility] 3 02:03:50 Problem Notes None recorded. Procedures Surgical History Date Name Laterality Status Provider Name and Address Organization Details Recorded Time 01/14/2015 Refraction completed Petra Berman MA [facility] 01/14/2015 11:08:17 Imaging Results Imaging Date Name Status LastModified by Organiz ation Details LastModified Time 03/26/2010 mammogram, screening completed [facility] (Imaging) [address], [place], [id number], 11/17/2012 04:34:18 Procedure Notes None recorded. Medical Equipment None Reported. Allergies Allergen ID Allergen Name Allergen Category Reaction Reaction Severity Criticality Documentation Date Start Date Code Code System Note Provider Name and Address Organization Details Recorded Time 914970 tetracycl ine medicatio n itching Not available Not available 01/14/2015 04642 RxNorm Petra Berman MA [facility] 5 11:08:12 Medications Name Sig Start Date Stop Date Status Note LastModified by Organization Details LastModified Time atorvastati n 10 mg tablet active Not Available Not Available Not Available alendronate 70 mg tablet active Not Available Not Available Not Available Cartia XT 120 mg capsule,ext ended release active Not Available Not Available Not Available flecainide 50 mg tablet active Not Available Not Available Not Available Synthroid 75 mcg tablet active Not Available Not Available Not Available raloxifene 60 mg tablet active Not Available Not Available Not Available Lotemax 0.5 % eye drops,suspe nsion Instill 1 drop into affected eye(s) by ophthalmi c route 4 times per day 2009 active Not Available Not Available Not Avai lable DILT-XR 120 mg capsule, extended release active Not Available Not Available Not Available Synthroid active Not Available Not Leila ilable Not Available Prevnar 13 (PF) 0.5 mL intramuscul ar syringe VACCINATI ON ADMINISTE RED BY PHARMACIS T 01/19 completed Not Available Not Available Not Available Eliquis 5 mg tablet active Not Available Not Available No t Available Fluzone High-Dose (PF) 180 mcg/0.5 mL intramuscul ar syringe active Not Available Not Available N ot Available Fluzone High-Dose (PF) 180 mcg/0.5 mL intramuscul ar syringe inject 0.5 millilite r intramusc ularly 01/19 completed Not Available Not Available Not Available Fluzone High-Dose 8257-0009 (PF) 180 mcg/0.5 mL intramuscul ar syringe VACCINATI ON ADMINISTE RED BY PHARMACIS T 01/19 completed Not Available Not Available Not Available Vitals None Recorded Social History None recorded. Functional Status None recorded. Mental Status None recorded. Family History Nothing Reported. Medical History No medical history recorded. Gynecological HistoryNo gynecological history recorded. Obstetrics History GPAL:G 0 P 0 0 0 0 Immunizations Vaccine Type Date Status Note Provider Nam e and Address Organization Details Recorded Time influenza, unspecified formulation 1 completed Not Available [facility] 03/10/2011 05:20:34 influenza, unspecified formulation 5 completed Not Available [facility] 03/10/2011 05:21:29 Past Encounters Encounter ID Performer Location Encounter Start Date Encounter Closed Date Diagnosis/Indication Diagnosis SNOMED-CT Code Diagnosis ICD10 Code Diagnosis Note [id number] [facility], [place]ICE [address] [place] [address] 03/11/2000 09:00:00 05/15/2008 02:02:29 [id number] , [facility], [address] [place] [address] 03/08/2001 15:30:00 05/15/2008 02:02:29 [id number] [facility], [address]ICE [address] [place] [address] 04/24/2001 10:45:00 05/15/2008 02:02:29 [id number] [facility], [address]ICE [address] [place] [address] 09/07/2004 13:09:20 09/09/2004 17:51:07 [id number] Radiology , [facility] [address] [place] [address] 09/11/2004 11:42:55 09/14/2004 08:33:53 [id number] LAB - [address] [address] 09/11/2004 07:49:06 09/11/2004 07:49:10 [id number] [facility], [address]ICE [address] [place] [address] 03/17/2005 14:44:07 03/24/2005 13:17:18 [id number] Radiology , [facility] [address] [place] [address] 09/13/2005 13:13:44 09/14/2005 08:31:37 [id number] LAB - [facility] [address] [place] [address] 09/13/2005 14:32:54 09/13/2005 14:33:04 [id number] [facility], [address]ICE [address] [place] [address] 09/13/2005 13:38:37 09/14/2005 15:50:43 [id number] Eye Care, [facility] [address] [place] [address] 09/27/2005 10:10:47 05/15/2008 02:02:29 [id number] Optical, [facility] [id number] 09/27/2005 12:37:27 09/27/2005 12:37:57 [id number] Radiology , [facility] [id number] 09/27/2005 09:37:09 05/15/2008 02:02:29 [id number] Eye Care, [facility] [place] 10/04/2005 14:40:45 05/15/2008 02:02:29 [id number] LAB - [facility] Maile [facility] [place] 12/20/2005 09:04:10 12/20/2005 09:04:34 [id number] Eye Care, [facility] [id number] 03/31/2006 17:18:53 04/01/2006 09:58:16 [id number] Eye Care, [facility] [place] 07/18/2006 11:42:47 07/18/2006 16:44:48 [id number] Eye Care, [facility] [id number] 07/19/2006 11:40:18 07/19/2006 15:22:27 [id number] Eye Care, [facility] [id number] 07/21/2006 09:36:13 07/21/2006 15:44:48 [id number] Eye Care, [facility] Maile [facility] [id number] 07/22/2006 09:40:07 07/22/2006 15:00:51 [id number] Eye Care, [facility] Ma[facility] [id number] 07/28/2006 09:45:06 07/28/2006 17:06:46 [id number] Radiology , [facility] [id number] 11/24/2006 08:36:18 11/25/2006 09:18:40 [id number] Radiology , [facility] [id number] 11/24/2006 00:00:00 05/15/2008 02:02:29 [id number] Radiology , [address] [address] 11/27/2007 09:29:12 11/28/2007 09:22:50 [id number] Radiology , [address] [address] 11/27/2007 00:00:00 05/15/2008 02:02:29 [id number] Eye Care, [address] [address] 03/26/2008 15:52:05 03/28/2008 10:28:39 [id number] Optical, [address] [address] 02/04/2009 10:16:06 02/04/2009 16:31:36 [id number] Eye Care, [address] [address] 02/05/2009 13:53:21 02/05/2009 14:04:28 [id number] Radiology , [address] [address] 03/26/2010 15:28:08 03/30/2010 14:32:38 [id number] Alphonse Buckley, OD Eye Care, [address] [address] 01/14/2015 10:39:56 01/14/2015 12:04:17 Nuclear senile cataract 924886848 Cortical s enile cataract 11685302 Hypermetropia 24963778 Regular astigmatism 34858264 Presbyopia 79564156 Complainin g of - watering eyes 284835018 [id number] Laura Nick, OD Eye Care, [address] [address] 01/20/2016 10:13:22 01/20/2016 10:52:02 Nuclear senile cataract 359154629 H25.13 mild OU; pt ed limited views 2' small pupil exam. also h/o macular RPE mottling OU, not discussed. observe. pt happy with current vision and glasses. Health Concerns Section Related Observation LastModified by Organization Detai ls LastModified Time None Recorded Concern Status LastModified by Organization Details LastModified Time None Recorded Advance Directives Directive None Recorded Payers Encounter Date Sequence Insurance Name Policy Number Policy Mckeon Covered Member ID Mckeon Member ID Guarantor Name 02/04/2009 2 [place] [employer] [address] Nicholas [id number] Raquel Nicholas 02/05/2009 2 [place] [employer] [place] 111 John Nicholas [id number] Raquel Nicholas 03/26/2010 2 [place] [employer] [place] 111 John Nicholas [id number] Raquel Nicholas 01/14/2015 2 [place] [employer] [place] 111 John Nicholas [id number] Raquel Nicholas 01/14/2015 1 [place] [facility] Raquel Nicholas [id number] Raquel Nicholas 01/20/2016 2 [place] [employer] [place] 111 John Nicholas [id number] Raquel Nicholas 01/20/2016 1 [place] [facility] Raquel Nicholas [id number] Raquel Nicholas Notes Date Note Type Note Provider Name and Address Organization Details Recorded Time 01/20/2016 text/html CataractReported bypatient.Location:bi lateral Quality:painless Severity:mild Onset/Timing:gradual Laura Nick, [address], [place], [address], [facility] 01/20/2016 10:58:09 OBGyn Episode No OBEpisode recorded.
[2024-05-03 10:38] LABS: MANUAL DIFF FLAG NO
[2024-05-03 10:53] LABS: Basophils Absolute Auto 0.1 X10*3/uL (0.0-0.2); Basophils Percent Auto 0.8 % (0-2); Eosinophils Absolute Auto 0.3 X10*3/uL (0.0-0.4); Eosinophils Percent Auto 3.2 % (0-4); Hematocrit 42.3 % (37.0-47.0); Hemoglobin 13.8 g/dl (12.0-16.0); Imm Gran Abs Auto 0.04 X10*3/uL (0.00-0.03); Imm Gran Pct Auto 0.5 % (0.0-0.4); Lymphocytes Absolute Auto 1.2 X10*3/uL (1.2-4.9); Lymphocytes Percent Auto 13.1 % (20-40); Mean Corpuscular HGB Conc 32.6 g/dl (31.0-35.0); Mean Corpuscular Hemoglobin 29.3 pg (27.0-33.0); Mean Corpuscular Volume 89.8 fL (80.0-98.0); Mean Platelet Volume 8.6 fL (9.4-12.3); Monocytes Absolute Auto 0.7 X10*3/uL (0.1-1.2); Monocytes Percent Auto 8.1 % (2-11); Neutrophils Absolute Auto 6.6 x10*3/uL (2.0-8.3); Neutrophils Percent Auto 74.3 % (45-73); Platelet Count 244 X10*3/uL (160-400); Red Blood Count 4.71 X10*6/uL (4.20-5.50); Red Cell Distribution Width 13.8 % (11.0-16.0); White Blood Count 8.9 X10*3/uL (4.8-10.8)
[2024-05-03 11:01] LABS: Estimated Average Glucose 103 mg/dL; Hemoglobin A1C 122.3026 umol/L; Hemoglobin A1c % 5.2 % (<6.0); Total Hemoglobin (HGBA1C) 3628.4915 umol/L
[2024-05-03 11:23] LABS: Alanine Aminotransferase 12 U/L (0-31); Albumin Level 3.6 g/dL (3.5-5.0); Anion Gap 12 (12-20); Aspartate Amino Transferase 22 U/L (5-31); Bilirubin Direct 0.3 mg/dL (0.0-0.5); Bilirubin Total 0.6 mg/dL (0.0-1.0); Blood Urea Nitrogen 12 mg/dL (9-16); Carbon Dioxide 31 mmol/L (22-29); Chloride 99 mmol/L (96-108); Cholesterol 142 mg/dL (<200); Estimated Glomerular Filt Rate 58; HDL Cholesterol 48 mg/dL (>40); Iron 38 mcg/dL (30-160); LDL Cholesterol Calculated 73 mg/dL (<100); Percent Iron Saturation 17 % (15-50); Potassium 4.4 mmol/L (3.3-5.1); Sodium 138 mmol/L (135-145); Total Iron Binding Capacity 222 mcg/dL (228-428); Total Protein 8.1 g/dL (6.5-8.0); Triglycerides 109 mg/dL (<150); Unsaturated Iron Binding 184 ug/dL; Uric Acid 6.1 mg/dL (2.4-5.7)
[2024-05-03 11:30] LABS: Parathyroid Hormone Intact 40.7 pg/mL (8.7-77.1)
[2024-05-03 11:33] LABS: Creatinine Urine 111.15 mg/dL; Ferritin 68 ng/mL (10-250); Microalbum/Creatinine Ratio Ur 25.1 ug/mg cr (<30); Vitamin D 25-OH Total 29.3 ng/mL (>30)
[2024-05-03 12:26] LABS: Alkaline Phosphatase 112 U/L (39-117)
== END 2024-05-03 09:38 | disposition home or self-care (01) ==
LOC: HO.10HDL 09:37
PROVIDERS: Visit Provider Internal Medicine Nephrology
DX: I12.9 Hypertensive chronic kidney disease with stage 1 through stage 4 chronic kidney disease, or unspecified chronic kidney disease (principal); N18.2 Chronic kidney disease, stage 2 (mild)
CPT/HCPCS: 36415; 80051; 80061; 80076; 82043; 82306; 82310; 82550; 82565; 82570; 82728; 83036; 83540; 83970; 84520; 84550; 85025

== ENCOUNTER 2024-05-07 09:57 | Inpatient (IN) | payer MEDICARE, BC, SELFPAY ==
--- NOTE | ~2024-05-07 | CT_ITS ---
EXAMINATION: CT ABDOMEN AND PELVIS WITHOUT AND WITH CONTRAST CLINICAL INFORMATION: Change in stools with aditi blood. COMPARISON: None available. TECHNIQUE: Multidetector volumetric imaging was performed of the abdomen and pelvis before and after the IV administration of 80 mL of Omnipaque 350 intravenous contrast. Sagittal and coronal reformatted images were obtained on the technologist's workstation. This CT examination was performed using dose optimization techniques as appropriate, variously including the following: *Automated exposure control *Adjustment of mA and/or kV according to patient size (this includes techniques or standardized protocols for targeted exams where dose is matched to indication/reason for exam; i.e. extremities or head) *Use of iterative reconstruction technique DLP [id number]. FINDINGS: LUNG BASES: Lungs are slightly hyperinflated with minimal scarring atelectasis right middle lobe and left lung base. Heart size is normal. LIVER, GALLBLADDER, AND BILIARY TREE: The liver is normal in size, shape, and attenuation. Focal fatty deposits in seen in the left hepatic lobe adjacent to the ligament teres. No focal hepatic lesion or biliary ductal dilatation is present. There is a tubular punctate radiopaque gallstone without wall thickening. PANCREAS: Unremarkable SPLEEN: Unremarkable ADRENAL GLANDS: Unremarkable KIDNEYS AND URETERS: The kidneys are normal in size, shape, and attenuation. No hydronephrosis, hydroureter, or calculi seen. No perinephric stranding. There are bilateral nonenhancing 8 mm cortical lesions likely small cyst. BLADDER: Unremarkable GASTROINTESTINAL TRACT: There is moderate scattered stool seen throughout the colon. There is diffuse mural thickening with diverticula and sigmoid colon mass suspicious for early diverticulitis. There is minimal pericolic stranding. There is no intraluminal contrast seen to suspect site of the. However there is a hyperemic mucosa seen within the distal sigmoid colon and the rectal area with there is mild mural thickening suspected. This best visualized on axial images 146/10 through 155/ ABDOMINAL WALL: No significant hernia is appreciated. LYMPH NODES: Normal VASCULAR: Unremarkable PELVIC VISCERA: The uterus is anteverted and appears unremarkable. There is no free air or free fluid. OSSEOUS STRUCTURES: There is grade 1 anterolisthesis L4 over L5 is no lytic or sclerotic process seen. There is moderate L4-5 and L5-S1 facet joint hypertrophy and arthropathy. CT/CT gi bleed abd pel wo/w IVcon IMPRESSION: Slightly hyperemic mucosa distal sigmoid colon and rectum but no aditi contrast pooling seen in the lumen. There is diffuse sigmoid diverticulosis with mural thickening and minimal pericolic fat stranding suggestive of diverticulitis. Mild constipation. Fleischner guidelines were followed. Electronically signed by: Julian Chun MD 05/07/2024 02:42 PM EST
[2024-05-07 10:21] VITALS: BP 128/62; PULSE 89; RESP 18; TEMP 36.4; O2SAT 95; BMI 31.2
--- NOTE | 2024-05-07 10:23 | ECG_ITS ---
Test Reason : GI BLEED Blood Pressure : */* mmHG Vent. Rate : 79 BPM Atrial Rate : 79 BPM P-R Int : 198 ms QRS Dur : 98 ms QT Int : 372 ms P-R-T Axes : 31 47 63 degrees QTcB Int : 426 ms Normal sinus rhythm Normal ECG When compared with ECG of 24-Nov-2023 11:12, TX interval has decreased Non-specific change in ST segment in Inferior leads Referred By: Anusha Martin Electronically Signed By: Yogi Crowe
--- NOTE | 2024-05-07 10:26 | ED_ITS ---
HPI - GI Bleed General Chief complaint: GI Bleed Stated complaint: bleeding hemoriods Time Seen by Provider: 05/07/24 12:49 Source: patient and old records reviewed Mode of arrival: EMS Limitations: no limitations History of Present Illness ED Provider: REGINA MCCABE Narrative: 78 yo female with PMH of afib on eliquis, HLD, CKD, COPD, hypothyroidism here with c/o unintentional weight loss of 10 lbs in the last few months, brb per rectum with decrease in stool amounts and lower abdominal pain states she had a normal colonoscopy [address] Reyes for routine screening. She came today as the bleeding seems more along with pain and discomfort. No CP/SOB, no dizziness. No recent fevers. She has noted some streaks of blood on adult brief as well. She is taking all of her medications as prescribed MD complaint: gross hematochezia Onset (ago): month(s) (2+) Pain Consistency: constant Severity: moderate Relieving factors: none Exacerbating factors: bowel movement Context: hemorrhoids Associated symptoms: abdominal pain, loss of appetite and other (weight loss) Treatments Prior to Arrival: none Related Data Home Medications ?Medication ?Instructions ?Recorded ?Confirmed apixaban 5 mg tablet (Eliquis) 5 mg PO BID 05/05/20 09/08/23 flecainide 50 mg tablet 75 mg PO Q12H 09/09/22 09/08/23 diltiazem HCl 240 mg 240 mg PO DAILY 03/07/23 09/08/23 capsule,extended release 24 hr Previous Rx's ?Medication ?Instructions ?Recorded albuterol sulfate 90 mcg/actuation 2 puff inhalation Q6H PRN 05/01/23 aerosol inhaler shortness of breath or wheezing #8.5 grams levothyroxine 75 mcg tablet 75 mcg PO DAILY #90 caps 11/10/23 rosuvastatin 5 mg tablet 5 mg PO 2XW 90 days #26 tabs 11/10/23 hydrocortisone 2.5 % topical cream 1 appl NV BID-QID PRN hemorrhoids 11/28/23 with perineal applicator #30 grams (Proctosol HC) Allergies Allergy/AdvReac Type Severity Reaction Status Date / Time tetracycline [TETRACYCLINE] Allergy Unknown ITCHINESS, Verified 05/07/24 10:26 rash nitrofurantoin Allergy Swelling Verified 05/07/24 10:26 atorvastatin [Lipitor] AdvReac Unknown Muscle pain Verified 05/07/24 10:26 bactrim Allergy Unknown Elevated Uncoded 01/05/24 10:52 LFTs/Itching/Nausea fentanyl AdvReac Severe Unconscious Uncoded 01/05/24 10:52 Review of Systems 2 Review of Systems: Constitutional : No Fever, No Chills, No Fatigue, pos weight loss ENT/Mouth : No sore throat, No Rhinorrhea Eyes: No Eye Pain, No Swelling, No Redness Cardiovascular : No Chest Pain, No SOB, No Dyspnea on Exertion Respiratory : No Cough, No Sputum Gastrointestinal : No Nausea, No Vomiting, No Diarrhea, pos abdominal Pain, pos hematochezia Genitourinary : No Dysuria, No Urinary Frequency, No Hematuria, Musculoskeletal : No joint pain, No Myalgias, No Joint Swelling Skin : No Skin Lesions, No rash Neuro : No Weakness, No Numbness, No Dizziness, no Headache Psych : No Anxiety/Panic, No Depression All other systems reviewed and are negative PMFSH Past Medical History Attestation statement: The following information was validated with the patient. 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 External hemorrhoids Hyperuricemia Vitamin D deficiency Impaired fasting glucose Inflammatory arthritis Multinodular thyroid Mixed stress and urge urinary incontinence Dyslipidemia Paroxysmal atrial fibrillation Chronic kidney disease, stage 3 Osteoporosis COPD (chronic obstructive pulmonary disease) Acquired hypothyroidism Surgical History Hx of colonoscopy S/P partial hysterectomy History of section Family History Family History Father CVA (cerebral vascular accident) AAA (abdominal aortic aneurysm) Mother Diabetes mellitus HTN (hypertension) Sister Diabetes mellitus Son Substance use disorder Son Substance use disorder Social History Social History Household Members: Children Housing: Unknown / Unable to assess Alcohol intake: current Alcohol intake frequency: does not drink Patient Tobacco Use Status: Former Tobacco user Years Smoked: 20 years Smoked in Last 30 Days: No e-Cigarette/Vaping Use: Never Used Use of substances other than those prescribed or required for medical reasons: No Advance Directives: Yes Advance Directives on File: Yes Advance Directives Date on File: 05/30/20 Do you have a plan to hurt others: No Plan Current occupational status: retired Cognitive needs: No Hearing needs: No Vision needs: Yes Physical Exam 2 Vital Signs: Vital Signs: Last Vital Signs Temp 97.8 F 05/07/24 15:30 Pulse 79 05/07/24 15:30 Resp 16 05/07/24 15:30 BP 129/62 05/07/24 15:30 Pulse Ox 97 05/07/24 15:30 O2 Del Method Room Air 05/07/24 15:30 BMI result Body Mass Index 31.2 Appearance: Alert. Oriented X3. No acute distress. Eyes: Pupils equal, round and reactive to light. ENT: Pharynx normal. Neck: Normal inspection. Neck supple. CVS: Normal heart rate and rhythm. Pulses normal. Respiratory: No respiratory distress. Breath sounds normal. Abdomen: Soft and nontender. Rectal: thrombosed painful ext hemorrhoid scant bleeding from hemorrhoid Skin: Skin warm and dry. Normal skin color. Normal skin turgor. Extremities: No lower extremity edema. No calf ttp Neuro: Oriented X 3. No motor deficit. No sensory deficit. CN2-12 intact Course Course Course Narrative: infection suspected 252pm lactic acid, cultures, IV ceftriaxone and flagyl ordered Medications Administered Generic Name Dose Route Start Last Admin Trade Name Freq PRN Reason Stop Dose Admin Metronidazole 500 mg in 100 mls @ 100 mls/hr 05/07/24 14:50 05/07/24 15:25 Flagyl IV 05/07/24 15:49 100 mls/hr ONCE ONE Administration Discontinued Medications Generic Name Dose Route Start Last Admin Trade Name Freq PRN Reason Stop Dose Admin Ceftriaxone Sodium 1 gm 05/07/24 14:50 05/07/24 15:25 Ceftriaxone Sodium 1 Gm Vial IVPUSH 05/07/24 14:51 1 gm ONCE ONE Administration Sodium Chloride 500 mls @ 500 mls/hr 05/07/24 14:17 05/07/24 14:44 Ns IV 05/07/24 15:16 500 mls/hr .Q1H ONE Administration Iohexol 100 ml 05/07/24 13:46 05/07/24 13:47 Iohexol 350 Mg/Ml 100 Ml Infus..Btl IV 05/07/24 13:47 80 ml ONCE ONE Administration Medical Decision Making Medical Decision Making MDM Narrative: 78 yo female with PMH of afib on eliquis, HLD, CKD, COPD, hypothyroidism here with c/o unintentional weight loss of 10 lbs in the last few months, brb per rectum with decrease in stool amounts and lower abdominal pain. At this time will obtain labs and CT scan she is not having bleeding at the moment and she has noted recently blood on adult brief. She thinks this could be a hemorrhoid as well. CT scan ordered for weight loss and pain. repeat H/H. Differential Diagnosis Differential Diagnoses: The differential diagnosis associated with the presentation includes GI bleed, hemorrhoids, mass Admission/Observation Consideration of admission/observation: Escalation of care including admission/observation considered given UTI, diverticulitis, eliquis and rectal bleeding will admit for further management Consult Healthcare Provider Management of the patient was discussed with: Hospitalist (will admit) and It Portfolio Manager (Dr. Juliet mendiola) Lab Data [facility] Lab Attestation statement: I reviewed the patient's lab results. 05/07/24 11:17 05/07/24 11:17 Labs: Lab Results 05/07/24 05/07/24 05/07/24 Range/Units 11:17 13:15 13:45 WBC 11.0 H (4.8-10.8) X10*3/uL RBC 4.39 (4.20-5.50) X10*6/uL Hgb 12.7 (12.0-16.0) g/dl Hct 38.8 (37.0-47.0) % MCV 88.4 (80.0-98.0) fL MCH 28.9 (27.0-33.0) pg MCHC 32.7 (31.0-35.0) g/dl RDW 14.0 (11.0-16.0) % Plt Count 244 (160-400) X10*3/uL MPV 8.6 L (9.4-12.3) fL Immature Gran % (Auto) 0.5 H (0.0-0.4) % Neut % (Auto) 78.3 H (45-73) % Lymph % (Auto) 10.1 L (20-40) % [place] % (Auto) 8.2 (2-11) % Eos % (Auto) 2.4 (0-4) % Baso % (Auto) 0.5 (0-2) % Lymph # (Auto) 1.1 L (1.2-4.9) X10*3/uL [place] # (Auto) 0.9 (0.1-1.2) X10*3/uL Eos # (Auto) 0.3 (0.0-0.4) X10*3/uL Baso # (Auto) 0.1 (0.0-0.2) X10*3/uL Abs Immat Gran (auto) 0.06 H (0.00-0.03) X10*3/uL Absolute Neuts (auto) 8.6 H (2.0-8.3) x10*3/uL Absolute Nucleated RBC 0.000 (0.0-0.012) X10*3/uL Nucleated RBC % (auto) 0.0 (0.0-0.2) /100WBC PT 23.0 H (10.9-12.4) SEC INR 2.0 H (0.9-1.1) Sodium 134 L (135-145) mmol/L Potassium 3.8 (3.3-5.1) mmol/L Chloride 98 (96-108) mmol/L Carbon Dioxide 29 (22-29) mmol/L Anion Gap 11 L (12-20) BUN 14 (9-16) mg/dL Creatinine 0.87 (0.5-1.4) mg/dL Estim Creat Clear Calc 48.5 Estimated GFR > 60 Random Glucose 89 (60-115) mg/dL Lactic Acid (0.5-2.0) mmol/L Calcium 9.1 D (8.4-10.2) mg/dL Magnesium 2.0 (1.6-2.6) mg/dL Total Bilirubin 0.5 (0.0-1.0) mg/dL Direct Bilirubin 0.3 (0.0-0.5) mg/dL AST 20 (5-31) U/L ALT 10 (0-31) U/L Alkaline Phosphatase 113 (39-117) U/L Total Protein 7.4 (6.5-8.0) g/dL Albumin 3.4 L (3.5-5.0) g/dL Lipase 11 (8-78) U/L Urine Color Dark Yellow Urine Appearance Turbid Urine pH 6.0 (5.0-9.0) Ur Specific [place] 1.020 (1.005-1.025) Urine Protein 30 (1+) H (Neg-Trace) mg/dL Urine Glucose (UA) Negative (Negative) mg/dL Urine Ketones Negative (Negative) mg/dL Urine Blood Moderate (2+) H (Negative) Urine Nitrite Positive H (Negative) Ur Leukocyte Esterase Large (3+) H (Negative) Urine RBC 3-5 H (0-2) /HPF Urine WBC >50 H (0-5) /HPF Ur Squamous Epith Cells 3-5 (0-2) /HPF Urine Bacteria 4+ (None Seen) Hyaline Casts 0-2 (0-2) /LPF Stool Occult Blood POSITIVE (NEGATIVE) Blood Type O Negative Antibody Screen NEGATIVE 05/07/24 Range/Units 15:10 WBC (4.8-10.8) X10*3/uL RBC (4.20-5.50) X10*6/uL Hgb (12.0-16.0) g/dl Hct (37.0-47.0) % MCV (80.0-98.0) fL MCH (27.0-33.0) pg MCHC (31.0-35.0) g/dl RDW (11.0-16.0) % Plt Count (160-400) X10*3/uL MPV (9.4-12.3) fL Immature Gran % (Auto) (0.0-0.4) % Neut % (Auto) (45-73) % Lymph % (Auto) (20-40) % [place] % (Auto) (2-11) % Eos % (Auto) (0-4) % Baso % (Auto) (0-2) % Lymph # (Auto) (1.2-4.9) X10*3/uL [place] # (Auto) (0.1-1.2) X10*3/uL Eos # (Auto) (0.0-0.4) X10*3/uL Baso # (Auto) (0.0-0.2) X10*3/uL Abs Immat Gran (auto) (0.00-0.03) X10*3/uL Absolute Neuts (auto) (2.0-8.3) x10*3/uL Absolute Nucleated RBC (0.0-0.012) X10*3/uL Nucleated RBC % (auto) (0.0-0.2) /100WBC PT (10.9-12.4) SEC INR (0.9-1.1) Sodium (135-145) mmol/L Potassium (3.3-5.1) mmol/L Chloride (96-108) mmol/L Carbon Dioxide (22-29) mmol/L Anion Gap (12-20) BUN (9-16) mg/dL Creatinine (0.5-1.4) mg/dL Estim Creat Clear Calc Estimated GFR Random Glucose (60-115) mg/dL Lactic Acid 1.2 (0.5-2.0) mmol/L Calcium (8.4-10.2) mg/dL Magnesium (1.6-2.6) mg/dL Total Bilirubin (0.0-1.0) mg/dL Direct Bilirubin (0.0-0.5) mg/dL AST (5-31) U/L ALT (0-31) U/L Alkaline Phosphatase (39-117) U/L Total Protein (6.5-8.0) g/dL Albumin (3.5-5.0) g/dL Lipase (8-78) U/L Urine Color Urine Appearance Urine pH (5.0-9.0) Ur Specific [place] (1.005-1.025) Urine Protein (Neg-Trace) mg/dL Urine Glucose (UA) (Negative) mg/dL Urine Ketones (Negative) mg/dL Urine Blood (Negative) Urine Nitrite (Negative) Ur Leukocyte Esterase (Negative) Urine RBC (0-2) /HPF Urine WBC (0-5) /HPF Ur Squamous Epith Cells (0-2) /HPF Urine Bacteria (None Seen) Hyaline Casts (0-2) /LPF Stool Occult Blood (NEGATIVE) Blood Type Antibody Screen Independent Interpretation I performed an independent interpretation of an: EKG and CT Scan (diverticulitis) Interpretation: Rate: 79 Rhythm: NSR [place]: normal Normal P waves. Normal CARMELA. Normal QRS complex. ST T wave : normal no SHERRI qTC: 426 prior studies: no acute ischemia The study has been interpreted contemporaneously by me. . Radiology Impression Discussion of test interpretation with radiology: I have reviewed the radiologist's reading. External Record Review External record reviewed: Outpatient record Discharge Plan Discharge Clinical Impression: Bright red rectal bleeding, Acute UTI, Diverticulitis Hemorrhoids Qualifiers: Hemorrhoid type: unspecified Qualified Code(s): K64.9 - Unspecified hemorrhoids Patient Disposition: Admitted As Inpatient Print Language: Panamanian
[2024-05-07 11:22] LABS: MANUAL DIFF FLAG NO
[2024-05-07 11:31] LABS: Basophils Absolute Auto 0.1 X10*3/uL (0.0-0.2); Basophils Percent Auto 0.5 % (0-2); Eosinophils Absolute Auto 0.3 X10*3/uL (0.0-0.4); Eosinophils Percent Auto 2.4 % (0-4); Hematocrit 38.8 % (37.0-47.0); Hemoglobin 12.7 g/dl (12.0-16.0); Imm Gran Abs Auto 0.06 X10*3/uL (0.00-0.03); Imm Gran Pct Auto 0.5 % (0.0-0.4); Lymphocytes Absolute Auto 1.1 X10*3/uL (1.2-4.9); Lymphocytes Percent Auto 10.1 % (20-40); Mean Corpuscular HGB Conc 32.7 g/dl (31.0-35.0); Mean Corpuscular Hemoglobin 28.9 pg (27.0-33.0); Mean Corpuscular Volume 88.4 fL (80.0-98.0); Mean Platelet Volume 8.6 fL (9.4-12.3); Monocytes Absolute Auto 0.9 X10*3/uL (0.1-1.2); Monocytes Percent Auto 8.2 % (2-11); Neutrophils Absolute Auto 8.6 x10*3/uL (2.0-8.3); Neutrophils Percent Auto 78.3 % (45-73); Platelet Count 244 X10*3/uL (160-400); Red Blood Count 4.39 X10*6/uL (4.20-5.50)
[2024-05-07 11:37] LABS: Alanine Aminotransferase 10 U/L (0-31); Albumin Level 3.4 g/dL (3.5-5.0); Alkaline Phosphatase 113 U/L (39-117); Anion Gap 11 (12-20); Aspartate Amino Transferase 20 U/L (5-31); Bilirubin Direct 0.3 mg/dL (0.0-0.5); Bilirubin Total 0.5 mg/dL (0.0-1.0); Blood Urea Nitrogen 14 mg/dL (9-16); Calcium 9.1 mg/dL (8.4-10.2); Carbon Dioxide 29 mmol/L (22-29); Chloride 98 mmol/L (96-108); Creatinine Clr Calc Pharmacy 48.5; Estimated Glomerular Filt Rate > 60; Glucose Random 89 mg/dL (60-115); Lipase 11 U/L (8-78); Potassium 3.8 mmol/L (3.3-5.1); Sodium 134 mmol/L (135-145); Total Protein 7.4 g/dL (6.5-8.0)
[2024-05-07 13:32] LABS: Appearance Urine Turbid; Color Urine Dark Yellow; Glucose Urine UA Negative (Negative); Leukocyte Esterase Urine Large (3+) (Negative); Nitrite Urine Positive (Negative); UMIC TRIGGER UACC YES; Urine Blood Moderate (2+) (Negative); Urine Ketones Negative (Negative); Urine Protein 30 (1+) mg/dL (Neg-Trace)
[2024-05-07 13:43] LABS: Bacteria Urine 4+ (None Seen); Hyaline Casts Urine 0-2 /LPF (0-2); UACC Culture Trigger YES; WBC Urine >50 /HPF (0-5)
[2024-05-07] MEDS: iohexoL 350 MG/ML 100 ML INFUS..BTL IV (13:47)
[2024-05-07 13:51] LABS: OBS Int Ctl Valid YES; OBS1 POSITIVE (NEGATIVE)
[2024-05-07] MEDS: 0.9 % Sodium Chloride 500 ML IV (14:44)
[2024-05-07] MEDS: metroNIDAZOLE/NS 500 MG/100 ML PIGGYBACK 100 MG IV ×2 (15:25→21:26)
[2024-05-07] MEDS: cefTRIAXone sodium 1 GM VIAL IVPUSH (15:25)
[2024-05-07 15:30] VITALS: BP 129/62; PULSE 79; RESP 16; TEMP 36.6; O2SAT 97
--- NOTE | 2024-05-07 15:32 | PC.NURSE ---
cultures/lactic obtained/sent to lab. abx administered per provider order. pt aware of CT results/in regards to plan of care moving forward. pt otherwise resting in no apparent distress. no sob/wob noted. respirations even/unlabored. plan of care ongoing.
[2024-05-07 15:46] LABS: Lactic Acid 1.2 mmol/L (0.5-2.0)
[2024-05-07 16:16] LABS: C Reactive Protein 8.72 mg/dL (< or = 0.50)
--- NOTE | 2024-05-07 16:34 | PHA.MEDREC ---
Addendum entered by Papo Swanson 05/07/24 16:42: reviewed Original Note: Pharmacy Consult ? Medication Reconciliation Pharmacy has completed the medication reconciliation. Spoke with patient and she was able to confirm her medications. She confirmed she takes her Rosuvastatin 5mg tab on Tuesdays and and confirmed she last took it 05/03. She confirmed she last took the medications this morning.
--- NOTE | 2024-05-07 16:35 | PM.IMHP ---
History of Present Illness Date of Service: 05/07/24 Chief Complaint: rectal bleeding 78yo F with paroxysmal atrial fibrillation on apixaban and flecainide, CKD3, HLD, hypothyroidism, and COPD who presents with over 6 months of rectal bleeding that she says has been going on every since her colonoscopy 6 months ago. She complains of anorexia and unintentional weight loss of the last 10 months. She notes that her stool has become thinner and smaller as well. Some mild lower abdominal discomfort. No fever, chills, nausea, or vomiting. Colonoscopy was actually done 03/11/[address] Reyes; 2 small-medium polyps were removed, random biopsies were taken from the R and L colon, and there was moderate-severe diverticulosis in the L colon. Pathology showed: A. Colon, right, biopsy: Mildly active colitis; fully-developed chronic injury not identified. B. Colon, left, biopsy: Chronic inactive colitis. C. Colon, sigmoid, polypectomy: Hyperplastic mucosal polyp. D. Rectum, biopsy: Colonic mucosa with prominent lymphoid aggregate and mild surface hyperplastic change CT of the abdomen and pelvis did not show any aditi contrast pooling in the colon. There was difufse sigmoid diverticulosis and mural thickening and pericolic fat stranding suggestive of diverticulitis. She was given ceftriaxone and metronidazole. Hemoglobin was 12.7 and FOBT positive. Review of Systems Review of Systems: Yes all other systems are reviewed and are negative [facility] Medical History Current use of fci anticoagulation External hemorrhoids Hyperuricemia Vitamin D deficiency Impaired fasting glucose Inflammatory arthritis Multinodular thyroid Mixed stress and urge urinary incontinence Dyslipidemia Paroxysmal atrial fibrillation Chronic kidney disease, stage 3 Osteoporosis COPD (chronic obstructive pulmonary disease) Acquired hypothyroidism Family History Father CVA (cerebral vascular accident) AAA (abdominal aortic aneurysm) Mother Diabetes mellitus HTN (hypertension) Sister Diabetes mellitus Son Substance use disorder Son Substance use disorder Surgical History Hx of colonoscopy S/P partial hysterectomy History of section Social History Household Members: Children Housing: Unknown / Unable to assess Alcohol intake: current Alcohol intake frequency: does not drink Patient Tobacco Use Status: Former Tobacco user Years Smoked: 20 years e-Cigarette/Vaping Use: Never Used Advance Directives Date on File: 05/30/20 Current occupational status: retired Cognitive needs: No Hearing needs: No Vision needs: Yes Meds Allergies Allergy/AdvReac Type Severity Reaction Status Date / Time tetracycline [TETRACYCLINE] Allergy Unknown ITCHINESS, Verified 05/07/24 10:26 rash nitrofurantoin Allergy Swelling Verified 05/07/24 10:26 atorvastatin [Lipitor] AdvReac Unknown Muscle pain Verified 05/07/24 10:26 bactrim Allergy Unknown Elevated Uncoded 01/05/24 10:52 LFTs/Itching/Nausea fentanyl AdvReac Severe Unconscious Uncoded 01/05/24 10:52 Active Medications: Current Medications Acetaminophen (Acetaminophen 325 Mg Tablet) 650 mg PO Q6H PRN PRN Reason: Pain, Mild 1-3,fever,headache Calcium Carbonate (Calcium Carbonate 750 Mg Tab.Chew) 750 mg PO Q4H PRN PRN Reason: Heartburn Ceftriaxone Sodium (Ceftriaxone Sodium 1 Gm Vial) 1 gm IVPUSH Q24H [facility] Metronidazole (Flagyl) 500 mg in 100 mls @ 100 mls/hr IV ONCE ONE Stop: 05/07/24 22:59 Magnesium Hydroxide (Milk Of Magnesia 30 Ml Oral.Susp) 30 ml PO DAILY PRN PRN Reason: Constipation Melatonin (Melatonin 3 Mg Tablet) 6 mg PO BEDTIME PRN PRN Reason: Insomnia Ondansetron HCl (Ondansetron Hcl 4 Mg/2 Ml Vial) 4 mg IVPUSH Q4H PRN PRN Reason: Nausea and Vomiting Sodium Chloride (0.9 % Sodium Chloride Flush 3 Ml Syringe) 3 ml IVFLUSH [facility] Home Medications ?Medication ?Instructions ?Recorded ?Confirmed ?Last Taken ?Type apixaban 5 mg tablet (Eliquis) 5 mg PO BID 05/05/20 05/07/24 05/07/24 History flecainide 50 mg tablet 75 mg PO BID 09/09/22 05/07/24 05/07/24 History diltiazem HCl 240 mg 240 mg PO DAILY 03/07/23 05/07/24 05/07/24 History capsule,extended release 24 hr chlorthalidone 25 mg tablet 25 mg PO DAILY 0105/07/24 05/07/24 History rosuvastatin 5 mg tablet 5 mg PO TUTH 05/07/24 05/07/24 05/03/24 History Physical Exam Vital Signs and Narrative: Vital Signs: Last Vital Signs Temp 97.8 F 05/07/24 15:30 Pulse 79 05/07/24 15:30 Resp 16 05/07/24 15:30 BP 129/62 05/07/24 15:30 Pulse Ox 97 05/07/24 15:30 O2 Del Method Room Air 05/07/24 15:30 BMI result Body Mass Index 31.2 Gen: in no acute distress HEENT: sclera anicteric, moist mucus membranes Neck: supple Lungs: clear to auscultation bilaterally Heart: regular rate and rhythm, no murmurs Abd: soft, non-tender, non-distended. Per ED physician thrombosed external hemorrhoid with scant bleeding Ext: no edema Skin: warm/well-perfused Neuro: alert and oriented x3, no focal findings Psych: appropriate affect Results Labs 05/07/24 11:17 05/07/24 11:17 Labs: Laboratory Results - last 24 hr 05/07/24 05/07/24 05/07/24 11:17 13:15 13:45 MCV 88.4 MCH 28.9 MCHC 32.7 RDW 14.0 Plt Count 244 MPV 8.6 L Immature Gran % (Auto) 0.5 H Neut % (Auto) 78.3 H Lymph % (Auto) 10.1 L [place] % (Auto) 8.2 Eos % (Auto) 2.4 Baso % (Auto) 0.5 Lymph # (Auto) 1.1 L [place] # (Auto) 0.9 Eos # (Auto) 0.3 Baso # (Auto) 0.1 Abs Immat Gran (auto) 0.06 H Absolute Neuts (auto) 8.6 H Absolute Nucleated RBC 0.000 Nucleated RBC % (auto) 0.0 PT 23.0 H INR 2.0 H Anion Gap 11 L Estim Creat Clear Calc 48.5 Estimated GFR > 60 Random Glucose 89 Lactic Acid Calcium 9.1 D Magnesium 2.0 Total Bilirubin 0.5 Direct Bilirubin 0.3 AST 20 ALT 10 Alkaline Phosphatase 113 C-Reactive Protein 8.72 H Total Protein 7.4 Albumin 3.4 L Lipase 11 Urine Color Dark Yellow Urine Appearance Turbid Urine pH 6.0 Ur Specific [place] 1.020 Urine Protein 30 (1+) H Urine Glucose (UA) Negative Urine Ketones Negative Urine Blood Moderate (2+) H Urine Nitrite Positive H Ur Leukocyte Esterase Large (3+) H Urine RBC 3-5 H Urine WBC >50 H Ur Squamous Epith Cells 3-5 Urine Bacteria 4+ Hyaline Casts 0-2 Stool Occult Blood POSITIVE Blood Type O Negative Antibody Screen NEGATIVE 05/07/24 15:10 MCV MCH MCHC RDW Plt Count MPV Immature Gran % (Auto) Neut % (Auto) Lymph % (Auto) [place] % (Auto) Eos % (Auto) Baso % (Auto) Lymph # (Auto) [place] # (Auto) Eos # (Auto) Baso # (Auto) Abs Immat Gran (auto) Absolute Neuts (auto) Absolute Nucleated RBC Nucleated RBC % (auto) PT INR Anion Gap Estim Creat Clear Calc Estimated GFR Random Glucose Lactic Acid 1.2 Calcium Magnesium Total Bilirubin Direct Bilirubin AST ALT Alkaline Phosphatase C-Reactive Protein Total Protein Albumin Lipase Urine Color Urine Appearance Urine pH Ur Specific [place] Urine Protein Urine Glucose (UA) Urine Ketones Urine Blood Urine Nitrite Ur Leukocyte Esterase Urine RBC Urine WBC Ur Squamous Epith Cells Urine Bacteria Hyaline Casts Stool Occult Blood Blood Type Antibody Screen Imaging Radiologist's Impressions: Impressions Abdomen/Pelvis CT 05/07/24 13:40 IMPRESSION: Slightly hyperemic mucosa distal sigmoid colon and rectum but no aditi contrast pooling seen in the lumen. There is diffuse sigmoid diverticulosis with mural thickening and minimal pericolic fat stranding suggestive of diverticulitis. Mild constipation. Fleischner guidelines were followed. Electronically signed by: Julian Chun MD 05/07/2024 02:42 PM [facility] Assessment and Plan (1) BRBPR (bright red blood per rectum): Status: Acute Plan 78yo F with paroxysmal atrial fibrillation on apixaban and flecainide, CKD3, HLD, hypothyroidism, and COPD presenting with BRBPR, anorexia, unintentional weight loss, change in school caliber and abdominal discomfort; found to have external hemorrhoid and diffuse sigmoid diverticulosis with diverticulitis. diverticulitis - Admit to medical-surgical unit and continue IV ceftriaxone and metronidazole. LGIB - Hold apixaban. Consult GI. Monitor H+H. T+S active. pAF - Hold apixaban. Continue flecainide and diltiazem HTN - Continue diltiazem; hold chlorthalidone hypothyroidism - Continue LT4 COPD - prn albuterol VTE ppx - SCDs dispo - eventual home code status - DNR/DNI per pt I anticipate that the patient will stay at least 2 midnights as an inpatient in the hospital due to the above reasons. It is neither reasonable nor safe to care for them in a less acute setting. Quality Stroke Does the patient have a stroke diagnosis?: No VTE Prior VTE?: No VTE Risk Level:: Medical - moderate - high VTE Device Contraindication: N/A - Device Ordered VTE Drug Contraindication: Treatment Not Indicated
[2024-05-07 18:24] VITALS: BP 114/31; PULSE 86; RESP 16; TEMP 37; O2SAT 93
[2024-05-07 21:46] VITALS: BP 106/49; PULSE 82; RESP 16; TEMP 37.2; O2SAT 93
[2024-05-07] MEDS: 0.9 % Sodium Chloride Flush 3 ML SYRINGE IVFLUSH (23:54)
[2024-05-07] MEDS: Flecainide Acetate 50 MG TABLET 75 MG PO (23:54)
[2024-05-08] VITALS: BP 109/54; PULSE 83; RESP 19; TEMP 37.3; O2SAT 97
[2024-05-08 04:00] VITALS: BP 142/67; PULSE 78; RESP 19; TEMP 36.4; O2SAT 96
[2024-05-08] MEDS: cefTRIAXone sodium 1 GM VIAL IVPUSH (06:35)
[2024-05-08 08:00] VITALS: BP 116/60; PULSE 78; RESP 20; TEMP 36.4; O2SAT 93
[2024-05-08] MEDS: Flecainide Acetate 50 MG TABLET 75 MG PO ×2 (08:32→21:38)
[2024-05-08] MEDS: 0.9 % Sodium Chloride Flush 3 ML SYRINGE IVFLUSH ×2 (08:32→14:55)
[2024-05-08] MEDS: dilTIAZem HCL CD 240 MG CAP.ER.DEG PO (08:32)
[2024-05-08] MEDS: Levothyroxine Sodium 75 MCG TABLET PO (08:32)
--- NOTE | 2024-05-08 08:58 | MHC.CM.PN ---
IMM 05/08/24, EMR REVIEWED, PT W/DIVERTICULITIS, CM MET W/PT WHO REPORTS SHE LIVES IN A HOME AND ADULT SON LIVES IN [place], PT REPORTS SHE IS INDEP W/CARE, DENIES USE OF DME HOWEVER HAS A 3 WHEELED WALKER AT HOME AND NO HOME SERVICES, PT INTERESTED IN SOMEONE TO ASSIST W/VACUUMING/CLEANING ON DC AND TASK HAS BEEN SENT TO [facility], [facility] WE[facility]. PT VERIFIES PCP ON FILE IS CORRECT HOWEVER WILL BE PROVIDED W/[facility] PROVIDER LIST, PT REPORTS HER HCP IS DTFrederick LILLY [phone], COPY NOTY ON FILE AND HAS BEEN REQUESTED.
--- NOTE | 2024-05-08 09:27 | P.CNGI_ITS ---
History of Present Illness Data of Consult Service Date: 05/08/24 Requesting physician: Desiree Clements Primary Care Provider: Kala Lundberg MD HPI Reason for consult: rectal bleeding 78 yo F with paroxysmal atrial fibrillation on apixaban and flecainide, CKD3, HLD, hypothyroidism, and COPD who i am seeing for assessment for rectal bleeding. Patient initially presented with c/o anorexia, and weight loss over 10 months as well as rectal bleeding. She has noted abnormal stool habit for 1 yr with soft, small stools mixed with blood or noted on wiping. She denies abdominal pain, no nausea, or vomiting, no GERD or dysphagia. Last colonoscopy: 02/2023 right sided active colitis, chronic inactive colitis left prominent lymphoid aggregate rectum diverticulosis noted as well as internal hemorrhoids. CT of the abdomen and pelvis diffuse sigmoid diverticulosis and mural thickening and pericolic fat stranding suggestive of diverticulitis. She was given ceftriaxone and metronidazole. Hemoglobin was 12.7 on admission Review of Systems 2 Review of Systems: Constitutional : No Weight loss, No Fever, No Chills ENT/Mouth : No sore throat, No Rhinorrhea Eyes: No Swelling, No Redness Cardiovascular : No Chest Pain, No SOB, No Edema Respiratory : No Cough, No Sputum, No Wheezing Gastrointestinal : see HPI Genitourinary : NO Dysuria, No Urinary Frequency, No Hematuria, No Urgency Musculoskeletal : no joint pain, No Myalgias, No Joint Swelling Skin : No Skin Lesions, No rash Neuro : No Weakness, No Numbness, No Dizziness, No Headache Psych : No Anxiety/Panic, No Depression Heme/Lymph: No Bruising, No Lymphadenopathy Endocrine : No Polyuria, No Polydipsia All other systems reviewed and are negative. 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 External hemorrhoids Hyperuricemia Vitamin D deficiency Impaired fasting glucose Inflammatory arthritis Multinodular thyroid Mixed stress and urge urinary incontinence Dyslipidemia Paroxysmal atrial fibrillation Chronic kidney disease, stage 3 Osteoporosis COPD (chronic obstructive pulmonary disease) Acquired hypothyroidism Family History Family History Father CVA (cerebral vascular accident) AAA (abdominal aortic aneurysm) Mother Diabetes mellitus HTN (hypertension) Sister Diabetes mellitus Son Substance use disorder Son Substance use disorder Surgical History Surgical History Hx of colonoscopy S/P partial hysterectomy History of section Social History Social History Household Members: Children Housing: Other Housing Other:: [employer] Do you presently have visiting nurse or other home services: No Alcohol intake: current Alcohol intake frequency: does not drink Patient Tobacco Use Status: Former Tobacco user Years Smoked: 20 years e-Cigarette/Vaping Use: Never Used Second Hand Smoke Exposure: No Advance Directives Date on File: 05/30/20 service: No Current occupational status: retired Cognitive needs: No Hearing needs: No Vision needs: Yes Meds Allergies Allergy/AdvReac Type Severity Reaction Status Date / Time tetracycline [TETRACYCLINE] Allergy Unknown ITCHINESS, Verified 05/07/24 10:26 rash nitrofurantoin Allergy Swelling Verified 05/07/24 10:26 atorvastatin [Lipitor] AdvReac Unknown Muscle pain Verified 05/07/24 10:26 bactrim Allergy Unknown Elevated Uncoded 01/05/24 10:52 LFTs/Itching/Nausea fentanyl AdvReac Severe Unconscious Uncoded 01/05/24 10:52 Active Medications: Current Medications Acetaminophen (Acetaminophen 325 Mg Tablet) 650 mg PO Q6H PRN PRN Reason: Pain, Mild 1-3,fever,headache Albuterol Sulfate (Albuterol Sulfate 90 Mcg 8 Gm Inhaler) 2 puff INHALE Q6H PRN PRN Reason: shortness of breath or wheezing Calcium Carbonate (Calcium Carbonate 750 Mg Tab.Chew) 750 mg PO Q4H PRN PRN Reason: Heartburn Ceftriaxone Sodium (Ceftriaxone Sodium 2 Gm Vial) 2 gm IVPUSH Q24H [facility] Diltiazem HCl (Diltiazem Hcl Cd 240 Mg Cap.Er.Deg) 240 mg PO DAILY [facility]; Protocol Last Admin: 05/08/24 08:32 Dose: 240 mg Flecainide Acetate (Flecainide Acetate 50 Mg Tablet) 75 mg PO BID [facility] Last Admin: 05/08/24 08:32 Dose: 75 mg Hydrocortisone (Hydrocortisone 2.5 % Rectal Cr 30 Gm Tube) 1 appl [place] QID PRN PRN Reason: hemorrhoids Levothyroxine Sodium (Levothyroxine Sodium 75 Mcg Tablet) 75 mcg PO DAILY [facility] Last Admin: 05/08/24 08:32 Dose: 75 mcg Magnesium Hydroxide (Milk Of Magnesia 30 Ml Oral.Susp) 30 ml PO DAILY PRN PRN Reason: Constipation Melatonin (Melatonin 3 Mg Tablet) 6 mg PO BEDTIME PRN PRN Reason: Insomnia Ondansetron HCl (Ondansetron Hcl 4 Mg/2 Ml Vial) 4 mg IVPUSH Q4H PRN PRN Reason: Nausea and Vomiting Sodium Chloride (0.9 % Sodium Chloride Flush 3 Ml Syringe) 3 ml IVFLUSH QSHIFT [facility] Last Admin: 05/08/24 08:32 Dose: 3 ml Home Medications ?Medication ?Instructions ?Recorded ?Confirmed ?Last Taken ?Type apixaban 5 mg tablet (Eliquis) 5 mg PO BID 05/05/20 05/07/24 05/07/24 History flecainide 50 mg tablet 75 mg PO BID 09/09/22 05/07/24 05/07/24 History diltiazem HCl 240 mg 240 mg PO DAILY 03/07/23 05/07/24 05/07/24 History capsule,extended release 24 hr chlorthalidone 25 mg tablet 25 mg PO DAILY 05/07/24 05/07/24 05/07/24 History rosuvastatin 5 mg tablet 5 mg PO TUTH 05/07/24 05/07/24 05/03/24 History Physical Exam 2 Vital Signs: Vital Signs: Last Vital Signs Temp 97.6 F 05/08/24 08:00 Pulse 78 05/08/24 08:00 Resp 20 05/08/24 08:00 BP 116/60 05/08/24 08:00 Pulse Ox 93 05/08/24 08:00 O2 Del Method Room Air 05/08/24 08:00 BMI result Body Mass Index 31.2 EXAM: GENERAL: The patient is well developed and nontoxic. VITAL SIGNS:see workflow HEENT: Nonicteric sclerae, PERRLA, EOMI. Oropharynx clear. Moist mucous membranes. Conjunctivae appear well perfused. No thyroid mass. CHEST: Chest wall is nontender. HEART: Regular rate and rhythm without murmurs. LUNGS: Clear to auscultation bilaterally. ABDOMEN: Soft, positive bowel sounds, nontender, no organomegaly.no flank tenderness SKIN: No rash, no excessive bruising, petechiae, or purpura. NEUROLOGIC: Cranial nerves II-XII intact without motor/sensory deficit. Psych: normal affect Results Labs 05/08/24 10:31 05/08/24 10:31 Labs: Short CBC 05/07/24 Range/Units 11:17 WBC 11.0 H (4.8-10.8) X10*3/uL Hgb 12.7 (12.0-16.0) g/dl Hct 38.8 (37.0-47.0) % Plt Count 244 (160-400) X10*3/uL BMP 05/07/24 11:17 Sodium 134 L Potassium 3.8 Chloride 98 Carbon Dioxide 29 BUN 14 Creatinine 0.87 Calcium 9.1 D Liver Function 05/07/24 Range/Units 11:17 Total Bilirubin 0.5 (0.0-1.0) mg/dL Direct Bilirubin 0.3 (0.0-0.5) mg/dL AST 20 (5-31) U/L ALT 10 (0-31) U/L Alkaline Phosphatase 113 (39-117) U/L Albumin 3.4 L (3.5-5.0) g/dL Urine 05/07/24 Range/Units 13:15 Urine Color Dark Yellow Urine Appearance Turbid Urine pH 6.0 (5.0-9.0) Ur Specific [place] 1.020 (1.005-1.025) Urine Protein 30 (1+) H (Neg-Trace) mg/dL Urine Glucose (UA) Negative (Negative) mg/dL Microbiology Microbiology Results: Microbiology 05/07/24 Unknown Urine clean catch - Clean Catch Midstream Urine Culture - Preliminary Culture in progress. 05/07/24 15:20 Blood - Venous Blood Culture - Preliminary Prelim: GPR Gram Stain only Imaging CT scan - abdomen: Attestation: I personally reviewed and interpreted this imaging study as follows: (thickened seg of sigmoid bowel, diverticulosis ) Assessment and Plan (1) Bright red rectal bleeding: Status: Acute Plan 1/ Rectal bleeding with poor appetite and weight loss, could be underlying crohns based on the bx and prior colonoscopy. Bleeding could also be from hemorrhoids. She is not really behaving as a typical case of diverticulitis. Also need to r/o superimposed infection tona c diff PLAN: 1/ egd and colo for evaluation for her sx and check for IBD 2/ check GI stool pcr and c diff 3/ hold apixiban for the meantime, can use low dose lovenox for DVT prophylaxis. Procedures Date of Service Date of Service: 05/08/24
[2024-05-08 11:08] LABS: Hematocrit 36.4 % (37.0-47.0); Mean Corpuscular Hemoglobin 29.4 pg (27.0-33.0); Mean Corpuscular Volume 89.2 fL (80.0-98.0); Mean Platelet Volume 8.6 fL (9.4-12.3); Platelet Count 219 X10*3/uL (160-400); Red Blood Count 4.08 X10*6/uL (4.20-5.50); Red Cell Distribution Width 14.4 % (11.0-16.0); White Blood Count 9.8 X10*3/uL (4.8-10.8)
[2024-05-08 11:23] LABS: Anion Gap 10 (12-20); Blood Urea Nitrogen 10 mg/dL (9-16); Calcium 8.8 mg/dL (8.4-10.2); Carbon Dioxide 26 mmol/L (22-29); Chloride 99 mmol/L (96-108); Creatinine Clr Calc Pharmacy 50.2; Estimated Glomerular Filt Rate > 60; Glucose Random 134 mg/dL (60-115); Potassium 3.3 mmol/L (3.3-5.1); Sodium 132 mmol/L (135-145)
[2024-05-08 12:17] VITALS: BP 119/53; PULSE 75; RESP 20; TEMP 36.6; O2SAT 95
--- NOTE | 2024-05-08 12:33 | P.PNIM_ITS ---
Subjective Subjective Date of Service: 05/08/24 Interval History: ongoing rectal bleeding but no N/V nor abd pain; hungry Review of Systems Review of Systems: Yes all other systems are reviewed and are negative Physical Exam 2 Vital Signs: Vital Signs: Last Vital Signs Temp 97.9 F 05/08/24 12:17 Pulse 75 05/08/24 12:17 Resp 20 05/08/24 12:17 BP 119/53 L 05/08/24 12:17 Pulse Ox 95 05/08/24 12:17 O2 Del Method Room Air 05/08/24 12:17 BMI result Body Mass Index 31.2 Gen: in no acute distress HEENT: sclera anicteric, moist mucus membranes Neck: supple Lungs: clear to auscultation bilaterally Heart: regular rate and rhythm, no murmurs Abd: soft, non-tender, non-distended Ext: no edema Skin: warm/well-perfused Neuro: alert and oriented x3, no focal findings Psych: appropriate affect Objective Data Active Medications Acetaminophen (Acetaminophen 325 Mg Tablet) 650 mg PO Q6H PRN PRN Reason: Pain, Mild 1-3,fever,headache Albuterol Sulfate (Albuterol Sulfate 90 Mcg 8 Gm Inhaler) 2 puff INHALE Q6H PRN PRN Reason: shortness of breath or wheezing Calcium Carbonate (Calcium Carbonate 750 Mg Tab.Chew) 750 mg PO Q4H PRN PRN Reason: Heartburn Ceftriaxone Sodium (Ceftriaxone Sodium 2 Gm Vial) 2 gm IVPUSH Q24H [facility] Diltiazem HCl (Diltiazem Hcl Cd 240 Mg Cap.Er.Deg) 240 mg PO DAILY [facility]; Protocol Last Admin: 05/08/24 08:32 Dose: 240 mg Documented By: JAMIE Flecainide Acetate (Flecainide Acetate 50 Mg Tablet) 75 mg PO BID [facility] Last Admin: 05/08/24 08:32 Dose: 75 mg Documented By: JAMIE Hydrocortisone (Hydrocortisone 2.5 % Rectal Cr 30 Gm Tube) 1 appl [place] QID PRN PRN Reason: hemorrhoids Levothyroxine Sodium (Levothyroxine Sodium 75 Mcg Tablet) 75 mcg PO DAILY [facility] Last Admin: 05/08/24 08:32 Dose: 75 mcg Documented By: JAMIE Magnesium Hydroxide (Milk Of Magnesia 30 Ml Oral.Susp) 30 ml PO DAILY PRN PRN Reason: Constipation Melatonin (Melatonin 3 Mg Tablet) 6 mg PO BEDTIME PRN PRN Reason: Insomnia Ondansetron HCl (Ondansetron Hcl 4 Mg/2 Ml Vial) 4 mg IVPUSH Q4H PRN PRN Reason: Nausea and Vomiting Polyethylene Glycol/Electrolytes (Peg 3350/Na Sulf,Bicarb,Cl/Kcl 4,000 Ml Soln.Recon) 4,000 ml PO ONCE ONE Stop: 05/09/24 16:01 Sodium Chloride (0.9 % Sodium Chloride Flush 3 Ml Syringe) 3 ml IVFLUSH [facility] Last Admin: 05/08/24 08:32 Dose: 3 ml Documented By: JAMIE Labs 05/08/24 10:31 05/08/24 10:31 Labs: Laboratory Results - last 24 hr 05/07/24 05/07/24 05/07/24 11:17 13:15 13:45 MCV MCH MCHC RDW Plt Count MPV Absolute Nucleated RBC Nucleated RBC % (auto) Anion Gap Estim Creat Clear Calc Estimated GFR Random Glucose Lactic Acid Calcium C-Reactive Protein 8.72 H Urine Color Dark Yellow Urine Appearance Turbid Urine pH 6.0 Ur Specific [place] 1.020 Urine Protein 30 (1+) H Urine Glucose (UA) Negative Urine Ketones Negative Urine Blood Moderate (2+) H Urine Nitrite Positive H Ur Leukocyte Esterase Large (3+) H Urine RBC 3-5 H Urine WBC >50 H Ur Squamous Epith Cells 3-5 Urine Bacteria 4+ Hyaline Casts 0-2 Stool Occult Blood POSITIVE 05/07/24 05/08/24 15:10 10:31 MCV 89.2 MCH 29.4 MCHC 33.0 RDW 14.4 Plt Count 219 MPV 8.6 L Absolute Nucleated RBC 0.000 Nucleated RBC % (auto) 0.0 Anion Gap 10 L Estim Creat Clear Calc 50.2 Estimated GFR > 60 Random Glucose 134 H Lactic Acid 1.2 Calcium 8.8 C-Reactive Protein Urine Color Urine Appearance Urine pH Ur Specific [place] Urine Protein Urine Glucose (UA) Urine Ketones Urine Blood Urine Nitrite Ur Leukocyte Esterase Urine RBC Urine WBC Ur Squamous Epith Cells Urine Bacteria Hyaline Casts Stool Occult Blood Microbiology Microbiology Results: Microbiology 05/07/24 15:20 Blood Culture - Preliminary Blood - Venous Prelim: GPR Gram Stain only 05/07/24 Unknown Urine Culture - Preliminary Urine clean catch - Clean Catch Midstream Culture in progress. Assessment and Plan (1) BRBPR (bright red blood per rectum): Status: Acute Plan d2 for 78yo F with paroxysmal atrial fibrillation on apixaban and flecainide, CKD3, HLD, hypothyroidism, and COPD presenting with BRBPR, anorexia, unintentional weight loss, change in school caliber and abdominal discomfort; found to have external hemorrhoid and diffuse sigmoid diverticulosis with diverticulitis. diverticulitis - 05/07- ceftriaxone and metronidazole. - 1 BCx growing Gm-positive rods but suspect contamination LGIB weight loss - Hold apixaban. H+H stable. Consulted GI. Regular diet now, clear liquids tomorrow, EGD/C-scope 05/10. pAF - Hold apixaban. Continue flecainide and diltiazem HTN - Continue diltiazem; hold chlorthalidone hypothyroidism - Continue LT4 COPD - prn albuterol VTE ppx - SCDs dispo - eventual home In my clinical judgment, the patient requires continued inpatient hospitalization for the following reasons: inpt EGD/colonoscopy, IV ABX Total time managing care of this patient today: 40 minutes. Quality Stroke Does the patient have a stroke diagnosis?: No VTE Prior VTE?: No VTE Risk Level:: Medical - moderate - high VTE Device Contraindication: N/A - Device Ordered VTE Drug Contraindication: Treatment Not Indicated
[2024-05-08] MEDS: cefTRIAXone sodium 2 GM VIAL IVPUSH (14:55)
[2024-05-08 16:00] VITALS: BP 125/60; PULSE 73; RESP 18; TEMP 36.3; O2SAT 93
[2024-05-08 16:44] LABS: C Reactive Protein 8.74 mg/dL (< or = 0.50)
[2024-05-08 19:52] VITALS: BP 131/60; PULSE 88; RESP 14; TEMP 36.2; O2SAT 96
[2024-05-09 00:50] VITALS: BP 123/54; PULSE 85; RESP 16; TEMP 36.8; O2SAT 94
[2024-05-09] MEDS: 0.9 % Sodium Chloride Flush 3 ML SYRINGE IVFLUSH ×4 (00:54→22:26)
[2024-05-09 04:00] VITALS: BP 124/71; PULSE 85; RESP 17; TEMP 36.5; O2SAT 94
[2024-05-09 07:26] VITALS: BP 117/59; PULSE 82; RESP 18; TEMP 36.6; O2SAT 93
[2024-05-09] MEDS: dilTIAZem HCL CD 240 MG CAP.ER.DEG PO (08:48)
[2024-05-09] MEDS: Enoxaparin Sodium 40 MG/0.4 ML SYRINGE SUBCUT (08:48)
[2024-05-09] MEDS: Flecainide Acetate 50 MG TABLET 75 MG PO ×2 (08:49→22:16)
[2024-05-09] MEDS: Levothyroxine Sodium 75 MCG TABLET PO (08:49)
--- NOTE | 2024-05-09 10:15 | P.PNIM_ITS ---
Subjective Subjective Date of Service: 05/09/24 Interval History: tolerated diet yesterday, no N/V some mild discomfort in LLQ 2 episodes of self-limited rectal bleeding Review of Systems Review of Systems: Yes all other systems are reviewed and are negative Physical Exam 2 Vital Signs: Vital Signs: Last Vital Signs Temp 97.8 F 05/09/24 07:26 Pulse 82 05/09/24 07:26 Resp 18 05/09/24 07:26 BP 117/59 L 05/09/24 07:26 Pulse Ox 93 05/09/24 07:26 O2 Del Method Room Air 05/09/24 07:26 BMI result Body Mass Index 31.2 Gen: in no acute distress HEENT: sclera anicteric, moist mucus membranes Neck: supple Lungs: clear to auscultation bilaterally Heart: regular rate and rhythm, no murmurs Abd: soft, non-tender, non-distended Ext: no edema Skin: warm/well-perfused Neuro: alert and oriented x3, no focal findings Psych: appropriate affect Objective Data Active Medications Acetaminophen (Acetaminophen 325 Mg Tablet) 650 mg PO Q6H PRN PRN Reason: Pain, Mild 1-3,fever,headache Albuterol Sulfate (Albuterol Sulfate 90 Mcg 8 Gm Inhaler) 2 puff INHALE Q6H PRN PRN Reason: shortness of breath or wheezing Calcium Carbonate (Calcium Carbonate 750 Mg Tab.Chew) 750 mg PO Q4H PRN PRN Reason: Heartburn Ceftriaxone Sodium (Ceftriaxone Sodium 2 Gm Vial) 2 gm IVPUSH Q24H [facility] Last Admin: 05/08/24 14:55 Dose: 2 gm Documented By: ACE Diltiazem HCl (Diltiazem Hcl Cd 240 Mg Cap.Er.Deg) 240 mg PO DAILY [facility]; Protocol Last Admin: 05/09/24 08:48 Dose: 240 mg Documented By: SELENE Enoxaparin Sodium (Enoxaparin Sodium 40 Mg/0.4 Ml Syringe) 40 mg SUBCUT Q24H [facility] Last Admin: 05/09/24 08:48 Dose: 40 mg Documented By: SELENE Flecainide Acetate (Flecainide Acetate 50 Mg Tablet) 75 mg PO BID [facility] Last Admin: 05/09/24 08:49 Dose: 75 mg Documented By: SELENE Hydrocortisone (Hydrocortisone 2.5 % Rectal Cr 30 Gm Tube) 1 appl [place] QID PRN PRN Reason: hemorrhoids Levothyroxine Sodium (Levothyroxine Sodium 75 Mcg Tablet) 75 mcg PO DAILY [facility] Last Admin: 05/09/24 08:49 Dose: 75 mcg Documented By: SELENE Magnesium Hydroxide (Milk Of Magnesia 30 Ml Oral.Susp) 30 ml PO DAILY PRN PRN Reason: Constipation Melatonin (Melatonin 3 Mg Tablet) 6 mg PO BEDTIME PRN PRN Reason: Insomnia Ondansetron HCl (Ondansetron Hcl 4 Mg/2 Ml Vial) 4 mg IVPUSH Q4H PRN PRN Reason: Nausea and Vomiting Polyethylene Glycol/Electrolytes (Peg 3350/Na Sulf,Bicarb,Cl/Kcl 4,000 Ml Soln.Recon) 4,000 ml PO ONCE ONE Stop: 05/09/24 16:01 Sodium Chloride (0.9 % Sodium Chloride Flush 3 Ml Syringe) 3 ml IVFLUSH QSHIFT [facility] Last Admin: 05/09/24 08:52 Dose: 3 ml Documented By: SELENE Labs 05/08/24 10:31 05/08/24 10:31 Labs: Laboratory Results - last 24 hr 05/08/24 10:31 MCV 89.2 MCH 29.4 MCHC 33.0 RDW 14.4 Plt Count 219 MPV 8.6 L Absolute Nucleated RBC 0.000 Nucleated RBC % (auto) 0.0 Anion Gap 10 L Estim Creat Clear Calc 50.2 Estimated GFR > 60 Random Glucose 134 H Calcium 8.8 C-Reactive Protein 8.74 H Microbiology Microbiology Results: Microbiology 05/07/24 15:10 Blood Culture - Preliminary Blood - Venous No growth after 24 hours. 05/07/24 15:20 Blood Culture - Preliminary Blood - Venous Prelim: GPR Gram Stain only 05/07/24 Unknown Urine Culture - Preliminary Urine clean catch - Clean Catch Midstream Culture in progress. Assessment and Plan (1) BRBPR (bright red blood per rectum): Status: Acute Plan d3 for 78yo F with paroxysmal atrial fibrillation on apixaban and flecainide, CKD3, HLD, hypothyroidism, and COPD presenting with BRBPR, anorexia, unintentional weight loss, change in school caliber and abdominal discomfort; found to have external hemorrhoid and diffuse sigmoid diverticulosis with diverticulitis. diverticulitis - 05/07-05/14 ceftriaxone and metronidazole [can switch to PO cefuroxime + metronidazole upon discharge] - 1 BCx growing Gm-positive rods but suspect contamination GIB weight loss - Hold apixaban but prophylactic enoxaparin OK. H+H stable. Consulted GI. Clear liquids today, GoLytely prep in afternoon/evening, EGD/C-scope 05/10. pAF - Hold apixaban. Continue flecainide and diltiazem HTN - Continue diltiazem; hold chlorthalidone hypothyroidism - Continue LT4 COPD - prn albuterol VTE ppx - SCDs, LMWH OK per GI dispo - home possibly after scopes yani In my clinical judgment, the patient requires continued inpatient hospitalization for the following reasons: inpt EGD/colonoscopy Total time managing care of this patient today: 35 minutes. Quality Stroke Does the patient have a stroke diagnosis?: No VTE Prior VTE?: No VTE Risk Level:: Medical - moderate - high VTE Device Contraindication: N/A - Device Ordered VTE Drug Contraindication: Treatment Not Indicated
[2024-05-09 10:22] LABS: Hematocrit 36.1 % (37.0-47.0); Hemoglobin 11.8 g/dl (12.0-16.0); Mean Corpuscular HGB Conc 32.7 g/dl (31.0-35.0); Mean Corpuscular Volume 88.7 fL (80.0-98.0); Mean Platelet Volume 8.5 fL (9.4-12.3); Platelet Count 206 X10*3/uL (160-400); Red Blood Count 4.07 X10*6/uL (4.20-5.50); Red Cell Distribution Width 14.3 % (11.0-16.0); White Blood Count 8.5 X10*3/uL (4.8-10.8)
[2024-05-09 10:34] LABS: C Reactive Protein 8.33 mg/dL (< or = 0.50)
--- NOTE | 2024-05-09 11:39 | P.PNGI_ITS ---
Subjective Subjective Date of Service: 05/09/24 Interval History: she feels her stools are less bloody no abdominal pain no nausea or vomiting no fever Critical Care Time (minutes): 0 Physical Exam 2 Vital Signs: Vital Signs: Last Vital Signs Temp 97.8 F 05/09/24 07:26 Pulse 82 05/09/24 07:26 Resp 18 05/09/24 07:26 BP 117/59 L 05/09/24 07:26 Pulse Ox 93 05/09/24 07:26 O2 Del Method Room Air 05/09/24 07:26 BMI result Body Mass Index 31.2 EXAM: GENERAL: The patient is well developed and nontoxic. VITAL SIGNS:see workflow HEENT: Nonicteric sclerae, PERRLA, EOMI. Oropharynx clear. Moist mucous membranes. Conjunctivae appear well perfused. No thyroid mass. CHEST: Chest wall is nontender. HEART: Regular rate and rhythm without murmurs. LUNGS: Clear to auscultation bilaterally. ABDOMEN: Soft, positive bowel sounds, nontender, no organomegaly.no flank tenderness SKIN: No rash, no excessive bruising, petechiae, or purpura. NEUROLOGIC: Cranial nerves II-XII intact without motor/sensory deficit. Psych: normal affect Objective Data Labs 05/09/24 10:02 05/08/24 10:31 Labs: Laboratory Results - last 24 hr 05/08/24 05/09/24 05/09/24 10:31 10:01 10:02 WBC 8.5 RBC 4.07 L Hgb 11.8 L Hct 36.1 L MCV 88.7 MCH 29.0 MCHC 32.7 RDW 14.3 Plt Count 206 MPV 8.5 L Absolute Nucleated RBC 0.000 Nucleated RBC % (auto) 0.0 C-Reactive Protein 8.74 H 8.33 H Microbiology Microbiology Results: Microbiology 05/07/24 Unknown Urine clean catch - Clean Catch Midstream Urine Culture - Preliminary Gram negative camille 05/07/24 15:20 Blood - Venous Blood Culture - Final Bacillus species 05/07/24 15:10 Blood - Venous Blood Culture - Preliminary No growth after 24 hours. Procedures Date of Service Date of Service: 05/09/24 Progress Note: A&P Assessment and plan (1) Bright red rectal bleeding: Status: Acute Plan 1/ Rectal bleeding, HGB been trickling down, abn findings on CT and concern for colitis, possibly crohns, also has UTI--CRP 8 PLAN: 1/ prep for EGD and colo tomorrow, allow clears, prep tonight Time Spent With Patient Time: Total time managing care of this patient today ____ minutes. Quality Stroke Does the patient have a stroke diagnosis?: No VTE Prior VTE?: No VTE Risk Level:: Medical - moderate - high VTE Device Contraindication: N/A - Device Ordered VTE Drug Contraindication: Treatment Not Indicated
--- NOTE | 2024-05-09 13:57 | MHC.CM.PN ---
EMR REVIEWED, PT W/LGIB/DIVERTICULITIS, PER HOSPITALIST PT WILL REMAIN INPT FOR EGD/COLONOSCOPY TOMORROW 05/10 AND DC HOME W/NEW [facility] REFERRAL FOR HOMEMAKER SERVICES, CM WILL CONT TO FOLLOW DC NEEDS.
[2024-05-09] MEDS: cefTRIAXone sodium 2 GM VIAL IVPUSH (14:54)
[2024-05-09 15:13] VITALS: BP 103/61; PULSE 79; RESP 19; TEMP 37.2; O2SAT 93
[2024-05-09] MEDS: PEG 3350/Na Sulf,Bicarb,Cl/KCL 4,000 ML SOLN.RECON 4000 ML PO (17:18)
[2024-05-09 19:49] LABS: CDiff Gene PCR NEGATIVE (Negative)
[2024-05-09 19:57] VITALS: BP 135/60; PULSE 87; RESP 20; TEMP 36.9; O2SAT 96
[2024-05-09 23:40] VITALS: BP 140/61; PULSE 87; RESP 16; TEMP 36.1; O2SAT 93
[2024-05-10] VITALS (11 sets, daily range): BP systolic 104–136; BP diastolic 51–72; PULSE 70–89; RESP 14–20; TEMP 36.3–37.2; O2SAT 93–97
[2024-05-10] MEDS: dilTIAZem HCL CD 240 MG CAP.ER.DEG PO (08:09)
[2024-05-10] MEDS: 0.9 % Sodium Chloride Flush 3 ML SYRINGE IVFLUSH ×2 (08:10→15:59)
[2024-05-10] MEDS: Flecainide Acetate 50 MG TABLET 75 MG PO ×2 (08:10→22:12)
[2024-05-10] MEDS: metroNIDAZOLE/NS 500 MG/100 ML PIGGYBACK 100 MG IV (09:09)
[2024-05-10 09:34] LABS: INTERNATIONAL NORM RATIO 1.3 (0.9-1.1); Prothrombin Time 15.3 SEC (10.9-12.4)
[2024-05-10] MEDS: Sodium Phosphate,Mono-Dibasic 133 ML ENEMA PR (09:44)
--- NOTE | 2024-05-10 10:53 | MHC.CM.PN ---
ANT[facility] PT WILL BE MEDICALLY CLEARED FOR DC LATER TODAY AFTER COLONOSCOPY W/NEW REF FOR [facility] FOR HOMEMAKER SERVICES AND PT WILL CALL FAMILY TO ARRANGE TRANSPORT.
--- NOTE | 2024-05-10 10:55 | P.PNGI_ITS ---
Subjective Subjective Date of Service: 05/10/24 Interval History: no abdominal pain still seeing small amounts of blood in stool no nausea or vomiting no dysphagia Critical Care Time (minutes): 0 Physical Exam 2 Vital Signs: Vital Signs: Last Vital Signs Temp 98.5 F 05/10/24 08:00 Pulse 79 05/10/24 08:09 Resp 18 05/10/24 08:00 BP 125/59 L 05/10/24 08:09 Pulse Ox 95 05/10/24 08:00 O2 Del Method Room Air 05/10/24 08:00 BMI result Body Mass Index 31.2 EXAM: GENERAL: The patient is well developed and nontoxic. VITAL SIGNS:see workflow HEENT: Nonicteric sclerae, PERRLA, EOMI. Oropharynx clear. Moist mucous membranes. Conjunctivae appear well perfused. No thyroid mass. CHEST: Chest wall is nontender. HEART: Regular rate and rhythm without murmurs. LUNGS: Clear to auscultation bilaterally. ABDOMEN: Soft, positive bowel sounds, nontender, no organomegaly.no flank tenderness SKIN: No rash, no excessive bruising, petechiae, or purpura. NEUROLOGIC: Cranial nerves II-XII intact without motor/sensory deficit. Psych: normal affect Objective Data Labs 05/09/24 10:02 05/08/24 10:31 Labs: Laboratory Results - last 24 hr 05/09/24 05/10/24 17:54 09:18 PT 15.3 H D INR 1.3 H C. difficile Tox B Gene NEGATIVE Microbiology Microbiology Results: Microbiology 05/07/24 Unknown Urine clean catch - Clean Catch Midstream Urine Culture - Final Escherichia coli#2 Escherichia coli 05/07/24 15:10 Blood - Venous Blood Culture - Preliminary No growth after 48 hours. 05/07/24 15:20 Blood - Venous Blood Culture - Final Bacillus species Procedures Date of Service Date of Service: 05/10/24 Progress Note: A&P Assessment and plan (1) Bright red rectal bleeding: Status: Acute Plan 1/ Rectal bleeding - possibly hemorrhoidal or from colitis based on last colonoscopy and imaging PLAN: 1/ EGD and colo today for further eval 2/ recheck INR Time Spent With Patient Time: Total time managing care of this patient today ____ minutes. Quality Stroke Does the patient have a stroke diagnosis?: No VTE Prior VTE?: No VTE Risk Level:: Medical - moderate - high VTE Device Contraindication: N/A - Device Ordered VTE Drug Contraindication: Treatment Not Indicated
--- NOTE | 2024-05-10 10:58 | MHC.SHP ---
Pre-Procedural Eval Section A - 24 Hr Update-Section A only Date of Service: 05/10/24 The patient is an INPATIENT: Yes The patient has been examined within 24 hours of the surgical procedure. The History & Physical has been completed within 30 days and I have reviewed it.: Yes Section B - Complete if H&P > 30 days Chief Complaint: LGIB, diverticulitis Allergies: Allergies Allergy/AdvReac Type Severity Reaction Status Date / Time tetracycline [TETRACYCLINE] Allergy Unknown ITCHINESS, Verified 05/07/24 10:26 rash nitrofurantoin Allergy Swelling Verified 05/07/24 10:26 atorvastatin [Lipitor] AdvReac Unknown Muscle pain Verified 05/07/24 10:26 bactrim Allergy Unknown Elevated Uncoded 01/05/24 10:52 LFTs/Itching/Nausea fentanyl AdvReac Severe Unconscious Uncoded 01/05/24 10:52 Plan Diagnosis/Plan: Unchanged I have reviewed the history and physical and performed a pertinent physical examination on my patient. No changes have occurred unless specified. Time Spent With Patient Time: Total time managing care of this patient today ____ minutes.
--- NOTE | 2024-05-10 11:33 | HO.ANESPROP2 ---
[facility] Active Problems Active Problems: All Active Problems Hemorrhoids (Acute) Diverticulitis (Acute) Acute UTI (Acute) Bright red rectal bleeding (Acute) BRBPR (bright red blood per rectum) (Acute) Current use of exterminator termite anticoagulation (Acute) External hemorrhoids (Acute) Hyperuricemia (Acute) Impaired fasting glucose (Acute) Inflammatory arthritis (Acute) Multinodular thyroid (Acute) Mixed stress and urge urinary incontinence (Acute) Dyslipidemia (Acute) Paroxysmal atrial fibrillation (Acute) Chronic kidney disease, stage 3 (Acute) Osteoporosis (Acute) COPD (chronic obstructive pulmonary disease) (Acute) Acquired hypothyroidism (Acute) Past Medical History Medical History Current use of exterminator termite anticoagulation External hemorrhoids Hyperuricemia Vitamin D deficiency Impaired fasting glucose Inflammatory arthritis Multinodular thyroid Mixed stress and urge urinary incontinence Dyslipidemia Paroxysmal atrial fibrillation Chronic kidney disease, stage 3 Osteoporosis COPD (chronic obstructive pulmonary disease) Acquired hypothyroidism Family History Family History Father CVA (cerebral vascular accident) AAA (abdominal aortic aneurysm) Mother Diabetes mellitus HTN (hypertension) Sister Diabetes mellitus Son Substance use disorder Son Substance use disorder Family history of problems with anesthesia: No Surgical History Surgical History Hx of colonoscopy S/P partial hysterectomy History of section History of Problems with Anesthesia: No Social History Social History Household Members: Children Housing: Other Housing Other:: [employer] Do you presently have visiting nurse or other home services: No Alcohol intake: current Alcohol intake frequency: does not drink Patient Tobacco Use Status: Former Tobacco user Years Smoked: 20 years e-Cigarette/Vaping Use: Never Used Second Hand Smoke Exposure: No Advance Directives Date on File: 05/30/20 service: No Current occupational status: retired Cognitive needs: No Hearing needs: No Vision needs: Yes Meds Allergies Allergy/AdvReac Type Severity Reaction Status Date / Time tetracycline [TETRACYCLINE] Allergy Unknown ITCHINESS, Verified 05/07/24 10:26 rash nitrofurantoin Allergy Swelling Verified 05/07/24 10:26 atorvastatin [Lipitor] AdvReac Unknown Muscle pain Verified 05/07/24 10:26 bactrim Allergy Unknown Elevated Uncoded 01/05/24 10:52 LFTs/Itching/Nausea fentanyl AdvReac Severe Unconscious Uncoded 01/05/24 10:52 Active Medications: Current Medications Acetaminophen (Acetaminophen 325 Mg Tablet) 650 mg PO Q6H PRN PRN Reason: Pain, Mild 1-3,fever,headache Albuterol Sulfate (Albuterol Sulfate 90 Mcg 8 Gm Inhaler) 2 puff INHALE Q6H PRN PRN Reason: shortness of breath or wheezing Calcium Carbonate (Calcium Carbonate 750 Mg Tab.Chew) 750 mg PO Q4H PRN PRN Reason: Heartburn Ceftriaxone Sodium (Ceftriaxone Sodium 2 Gm Vial) 2 gm IVPUSH Q24H [facility] Last Admin: 05/09/24 14:54 Dose: 2 gm Diltiazem HCl (Diltiazem Hcl Cd 240 Mg Cap.Er.Deg) 240 mg PO DAILY [facility]; Protocol Last Admin: 05/10/24 08:09 Dose: 240 mg Enoxaparin Sodium (Enoxaparin Sodium 40 Mg/0.4 Ml Syringe) 40 mg SUBCUT Q24H [facility] Last Admin: 05/10/24 08:12 Dose: Not Given Flecainide Acetate (Flecainide Acetate 50 Mg Tablet) 75 mg PO BID [facility] Last Admin: 05/10/24 08:10 Dose: 75 mg Hydrocortisone (Hydrocortisone 2.5 % Rectal Cr 30 Gm Tube) 1 appl ME QID PRN PRN Reason: hemorrhoids Metronidazole (Flagyl) 500 mg in 100 mls @ 100 mls/hr IV Q8H [facility] Last Admin: 05/10/24 09:09 Dose: 100 mls/hr Levothyroxine Sodium (Levothyroxine Sodium 75 Mcg Tablet) 75 mcg PO DAILY [facility] Last Admin: 05/10/24 08:14 Dose: Not Given Magnesium Hydroxide (Milk Of Magnesia 30 Ml Oral.Susp) 30 ml PO DAILY PRN PRN Reason: Constipation Melatonin (Melatonin 3 Mg Tablet) 6 mg PO BEDTIME PRN PRN Reason: Insomnia Ondansetron HCl (Ondansetron Hcl 4 Mg/2 Ml Vial) 4 mg IVPUSH Q4H PRN PRN Reason: Nausea and Vomiting Sodium Chloride (0.9 % Sodium Chloride Flush 3 Ml Syringe) 3 ml IVFLUSH QSHIFT [facility] Last Admin: 05/10/24 08:10 Dose: 3 ml Home Medications ?Medication ?Instructions ?Recorded ?Confirmed ?Last Taken ?Type apixaban 5 mg tablet (Eliquis) 5 mg PO BID 05/05/20 05/07/24 05/07/24 History flecainide 50 mg tablet 75 mg PO BID 09/09/22 05/07/24 05/07/24 History diltiazem HCl 240 mg 240 mg PO DAILY 03/07/23 05/07/24 05/07/24 History capsule,extended release 24 hr chlorthalidone 25 mg tablet 25 mg PO DAILY 05/07/24 05/07/24 05/07/24 History rosuvastatin 5 mg tablet 5 mg PO TUTH 05/07/24 05/07/24 05/03/24 History Exam Height,Weight and Vital Signs: Height 5 ft 1 in Weight 74.843 kg Last Vital Signs Temp 98 F 05/10/24 10:57 Pulse 70 05/10/24 10:57 Resp 20 05/10/24 10:57 BP 123/51 L 05/10/24 10:57 Pulse Ox 96 05/10/24 10:57 O2 Del Method Room Air 05/10/24 10:57 Pertinent Lab Results Pertinent Lab Results: Laboratory Tests 05/07/24 05/07/24 05/07/24 11:17 13:15 13:45 WBC 11.0 H RBC 4.39 Hgb 12.7 Hct 38.8 MCV 88.4 MCH 28.9 MCHC 32.7 RDW 14.0 Plt Count 244 MPV 8.6 L Immature Gran % (Auto) 0.5 H Neut % (Auto) 78.3 H Lymph % (Auto) 10.1 L [place] % (Auto) 8.2 Eos % (Auto) 2.4 Baso % (Auto) 0.5 Lymph # (Auto) 1.1 L [place] # (Auto) 0.9 Eos # (Auto) 0.3 Baso # (Auto) 0.1 Abs Immat Gran (auto) 0.06 H Absolute Neuts (auto) 8.6 H Absolute Nucleated RBC 0.000 Nucleated RBC % (auto) 0.0 PT 23.0 H INR 2.0 H Sodium 134 L Potassium 3.8 Chloride 98 Carbon Dioxide 29 Anion Gap 11 L BUN 14 Creatinine 0.87 Estim Creat Clear Calc 48.5 Estimated GFR > 60 Random Glucose 89 Lactic Acid Calcium 9.1 D Magnesium 2.0 Total Bilirubin 0.5 Direct Bilirubin 0.3 AST 20 ALT 10 Alkaline Phosphatase 113 C-Reactive Protein 8.72 H Total Protein 7.4 Albumin 3.4 L Lipase 11 Urine Color Dark Yellow Urine Appearance Turbid Urine pH 6.0 Ur Specific [place] 1.020 Urine Protein 30 (1+) H Urine Glucose (UA) Negative Urine Ketones Negative Urine Blood Moderate (2+) H Urine Nitrite Positive H Ur Leukocyte Esterase Large (3+) H Urine RBC 3-5 H Urine WBC >50 H Ur Squamous Epith Cells 3-5 Urine Bacteria 4+ Hyaline Casts 0-2 Stool Occult Blood POSITIVE C. difficile Tox B Gene Blood Type O Negative Antibody Screen NEGATIVE 05/07/24 05/08/24 05/09/24 15:10 10:31 10:01 WBC 9.8 RBC 4.08 L Hgb 12.0 Hct 36.4 L MCV 89.2 MCH 29.4 MCHC 33.0 RDW 14.4 Plt Count 219 MPV 8.6 L Immature Gran % (Auto) Neut % (Auto) Lymph % (Auto) [place] % (Auto) Eos % (Auto) Baso % (Auto) Lymph # (Auto) [place] # (Auto) Eos # (Auto) Baso # (Auto) Abs Immat Gran (auto) Absolute Neuts (auto) Absolute Nucleated RBC 0.000 Nucleated RBC % (auto) 0.0 PT INR Sodium 132 L Potassium 3.3 Chloride 99 Carbon Dioxide 26 Anion Gap 10 L BUN 10 Creatinine 0.84 Estim Creat Clear Calc 50.2 Estimated GFR > 60 Random Glucose 134 H Lactic Acid 1.2 Calcium 8.8 Magnesium Total Bilirubin Direct Bilirubin AST ALT Alkaline Phosphatase C-Reactive Protein 8.74 H 8.33 H Total Protein Albumin Lipase Urine Color Urine Appearance Urine pH Ur Specific [place] Urine Protein Urine Glucose (UA) Urine Ketones Urine Blood Urine Nitrite Ur Leukocyte Esterase Urine RBC Urine WBC Ur Squamous Epith Cells Urine Bacteria Hyaline Casts Stool Occult Blood C. difficile Tox B Gene Blood Type Antibody Screen 05/09/24 05/09/24 05/10/24 10:02 17:54 09:18 WBC 8.5 RBC 4.07 L Hgb 11.8 L Hct 36.1 L MCV 88.7 MCH 29.0 MCHC 32.7 RDW 14.3 Plt Count 206 MPV 8.5 L Immature Gran % (Auto) Neut % (Auto) Lymph % (Auto) [place] % (Auto) Eos % (Auto) Baso % (Auto) Lymph # (Auto) [place] # (Auto) Eos # (Auto) Baso # (Auto) Abs Immat Gran (auto) Absolute Neuts (auto) Absolute Nucleated RBC 0.000 Nucleated RBC % (auto) 0.0 PT 15.3 H D INR 1.3 H Sodium Potassium Chloride Carbon Dioxide Anion Gap BUN Creatinine Estim Creat Clear Calc Estimated GFR Random Glucose Lactic Acid Calcium Magnesium Total Bilirubin Direct Bilirubin AST ALT Alkaline Phosphatase C-Reactive Protein Total Protein Albumin Lipase Urine Color Urine Appearance Urine pH Ur Specific [place] Urine Protein Urine Glucose (UA) Urine Ketones Urine Blood Urine Nitrite Ur Leukocyte Esterase Urine RBC Urine WBC Ur Squamous Epith Cells Urine Bacteria Hyaline Casts Stool Occult Blood C. difficile Tox B Gene NEGATIVE Blood Type Antibody Screen Airway Mallampati Class: II TM Dist: >3cm Neck ROM: Full Assessment and Plan Assessment Anesthesia Assessment: Anesthesia Plan Discussed and Chart Reviewed Final Anesthetic Review Family History of Problems with Anesthesia: No History of Problems with Anesthesia: No NPO: Yes ASA Class: III Final Preanesthetic Review: No Changes in Pt Med Stat, Meds/Allgs Chart Reviewed, Consent Obtained/Reviewed and Anes Risks/Benef Reviewed Patient Risk: Intermediate Procedure Risk: Low Anesthetic Plan Anesthetic Plan: TIVA Disposition: Standard PACU
--- NOTE | 2024-05-10 11:36 | P.DS_ITS ---
DS: Providers Provider Date of Service: 05/10/24 <Desiree Clements MD - Last Filed: 05/10/24 11:38> 05/11/24 <Tristan Robbins MD - Last Filed: 05/11/24 13:25> Date of admission: 05/07/24 16:31 <Desiree Clements MD - Last Filed: 05/10/24 11:38> Date of discharge: 05/10/24 <Desiree Clements MD - Last Filed: 05/10/24 11:38> 05/11/24 <Tristan Robbins MD - Last Filed: 05/11/24 13:25> Primary care physician: Kala Lundberg MD <Desiree Clements MD - Last Filed: 05/10/24 11:38> Consults: 05/07/24 15:56 Consult to Gastroenterology Routine Consulting Provider: Vivian Reyes Reason for consultation: LGIB suspect diverticular <Desiree Clements MD - Last Filed: 05/10/24 11:38> Discharging clinician: Tristan Robbins <Tristan Robbins MD - Last Filed: 05/11/24 13:25> DS: Diagnosis Discharge Diagnosis (1) Bright red rectal bleeding: Status: Acute <Deisree Clements MD - Last Filed: 05/10/24 11:38> (2) Diverticulitis: Status: Acute <Desiree Clements MD - Last Filed: 05/10/24 11:38> DS: Summary Hospital Course Hospital Course: from my admission H+P, 05/07/24: 78yo F with paroxysmal atrial fibrillation on apixaban and flecainide, CKD3, HLD, hypothyroidism, and COPD who presents with over 6 months of rectal bleeding that she says has been going on every since her colonoscopy 6 months ago. She complains of anorexia and unintentional weight loss of the last 10 months. She notes that her stool has become thinner and smaller as well. Some mild lower abdominal discomfort. No fever, chills, nausea, or vomiting. Colonoscopy was actually done 03/11/[address] Reyes; 2 small-medium polyps were removed, random biopsies were taken from the R and L colon, and there was moderate-severe diverticulosis in the L colon. Pathology showed: A. Colon, right, biopsy: Mildly active colitis; fully-developed chronic injury not identified. B. Colon, left, biopsy: Chronic inactive colitis. C. Colon, sigmoid, polypectomy: Hyperplastic mucosal polyp. D. Rectum, biopsy: Colonic mucosa with prominent lymphoid aggregate and mild surface hyperplastic change CT of the abdomen and pelvis did not show any aditi contrast pooling in the colon. There was difufse sigmoid diverticulosis and mural thickening and pericolic fat stranding suggestive of diverticulitis. She was given ceftriaxone and metronidazole. Hemoglobin was 12.7 and FOBT positive. She was admitted to the telemetry unit and apixaban was held. Gastroenterology was consulted. Hemoglobin and hematocrit was stable. She underwent EGD and colonoscopy on 05/10/[address] Chung. This showed: Endoscopy Findings: schatzki ring gastritis Colonoscopy Findings: anal lesion colitis, possible crohns Plan: Await Pathology results commence mesalamine, surgical consult for bx of anal lesion hold eliquis for the moment High fiber diet leaflet avoid straining at stool, epsom salts and sitz bath, anusol supps or cream Subsequently, the patient was evaluated by Dr. Ray from General surgery and underwent a biopsy of her anal lesion. Discussed with Dr. Ray and Dr. Chung, to restart her Eliquis on 05/14/2024. In regards to her diverticulitis, the patient will be treated with 5 more days of oral cefuroxime and metronidazole. For her colitis, mesalamine 1 g q.i.d. plus Proctofoam MA we will be sent. For her gastritis, she will be sent on PPI. For her hypertension she was continued on diltiazem and her chlorthalidone was held. This will continue to be held upon discharge. For her AFib she was continued on flecainide and Cardizem. Her apixaban was held and can be restarted on 05/14/2024. The patient is seen and examined on the day of discharge after her biopsy. She is stable for discharge. <Desiree Clements MD - Last Filed: 05/10/24 11:38> Time Attestation Discharge Coordination Time (in mins): 40 <Desiree Clements MD - Last Filed: 05/10/24 11:38> Quality: Safe Use of Opioids Does Pt have an Active Cancer Diagnosis on the Problem List?: No <Desiree Clements MD - Last Filed: 05/10/24 11:38> Quality: Stroke Does the patient have a stroke diagnosis?: No <Desiree Clements MD - Last Filed: 05/10/24 11:38> Physical Exam Vital Signs: Vital Signs: Last Vital Signs Temp 98 F 05/10/24 10:57 Pulse 70 05/10/24 10:57 Resp 20 05/10/24 10:57 BP 123/51 L 05/10/24 10:57 Pulse Ox 96 05/10/24 10:57 O2 Del Method Room Air 05/10/24 10:57 BMI result Body Mass Index 31.2 Gen: in no acute distress HEENT: sclera anicteric, moist mucus membranes Neck: supple Lungs: clear to auscultation bilaterally Heart: regular rate and rhythm, no murmurs Abd: soft, non-tender, non-distended Ext: no edema Skin: warm/well-perfused Neuro: alert and oriented x3, no focal findings Psych: appropriate affect <Desiree Clements MD - Last Filed: 05/10/24 11:38> Const: Other: General - no acute distress, appears comfortable Cardiovascular - regular rate and rhythm, S1-S2 Lungs - normal respiratory effort, clear to auscultation bilaterally, no wheezing Abdomen - soft, nontender, no rebound or guarding Extremities - no edema bilaterally Neuro - awake and alert, no focal deficits <Tristan Robbins MD - Last Filed: 05/11/24 13:25> DS: Data Data Completed and Pending Completed studies during hospitalization [Text1]: Laboratory Results WBC 8.5 X10*3/uL (4.8-10.8) 05/09/24 10:02 RBC 4.07 X10*6/uL (4.20-5.50) L 05/09/24 10:02 Hgb 11.8 g/dl (12.0-16.0) L 05/09/24 10:02 Hct 36.1 % (37.0-47.0) L 05/09/24 10:02 MCV 88.7 fL (80.0-98.0) 05/09/24 10:02 MCH 29.0 pg (27.0-33.0) 05/09/24 10:02 MCHC 32.7 g/dl (31.0-35.0) 05/09/24 10:02 RDW 14.3 % (11.0-16.0) 05/09/24 10:02 Plt Count 206 X10*3/uL (160-400) 05/09/24 10:02 MPV 8.5 fL (9.4-12.3) L 05/09/24 10:02 Immature Gran % (Auto) 0.5 % (0.0-0.4) H 05/07/24 11:17 Neut % (Auto) 78.3 % (45-73) H 05/07/24 11:17 Lymph % (Auto) 10.1 % (20-40) L 05/07/24 11:17 [place] % (Auto) 8.2 % (2-11) 05/07/24 11:17 Eos % (Auto) 2.4 % (0-4) 05/07/24 11:17 Baso % (Auto) 0.5 % (0-2) 05/07/24 11:17 Lymph # (Auto) 1.1 X10*3/uL (1.2-4.9) L 05/07/24 11:17 [place] # (Auto) 0.9 X10*3/uL (0.1-1.2) 05/07/24 11:17 Eos # (Auto) 0.3 X10*3/uL (0.0-0.4) 05/07/24 11:17 Baso # (Auto) 0.1 X10*3/uL (0.0-0.2) 05/07/24 11:17 Abs Immat Gran (auto) 0.06 X10*3/uL (0.00-0.03) H 05/07/24 11:17 Absolute Neuts (auto) 8.6 x10*3/uL (2.0-8.3) H 05/07/24 11:17 Absolute Nucleated RBC 0.000 X10*3/uL (0.0-0.012) 05/09/24 10:02 Nucleated RBC % (auto) 0.0 /100WBC (0.0-0.2) 05/09/24 10:02 PT 15.3 SEC (10.9-12.4) H D 05/10/24 09:18 INR 1.3 (0.9-1.1) H 05/10/24 09:18 Sodium 132 mmol/L (135-145) L 05/08/24 10:31 Potassium 3.3 mmol/L (3.3-5.1) 05/08/24 10:31 Chloride 99 mmol/L (96-108) 05/08/24 10:31 Carbon Dioxide 26 mmol/L (22-29) 05/08/24 10:31 Anion Gap 10 (12-20) L 05/08/24 10:31 BUN 10 mg/dL (9-16) 05/08/24 10:31 Creatinine 0.84 mg/dL (0.5-1.4) 05/08/24 10:31 Estim Creat Clear Calc 50.2 05/08/24 10:31 Estimated GFR > 60 05/08/24 10:31 Random Glucose 134 mg/dL (60-115) H 05/08/24 10:31 Lactic Acid 1.2 mmol/L (0.5-2.0) 05/07/24 15:10 Calcium 8.8 mg/dL (8.4-10.2) 05/08/24 10:31 Magnesium 2.0 mg/dL (1.6-2.6) 05/07/24 11:17 Total Bilirubin 0.5 mg/dL (0.0-1.0) 05/07/24 11:17 Direct Bilirubin 0.3 mg/dL (0.0-0.5) 05/07/24 11:17 AST 20 U/L (5-31) 05/07/24 11:17 ALT 10 U/L (0-31) 05/07/24 11:17 Alkaline Phosphatase 113 U/L (39-117) 05/07/24 11:17 C-Reactive Protein 8.33 mg/dL (< or = 0.50) H 05/09/24 10:01 Total Protein 7.4 g/dL (6.5-8.0) 05/07/24 11:17 Albumin 3.4 g/dL (3.5-5.0) L 05/07/24 11:17 Lipase 11 U/L (8-78) 05/07/24 11:17 Urine Color Dark Yellow 05/07/24 13:15 Urine Appearance Turbid 05/07/24 13:15 Urine pH 6.0 (5.0-9.0) 05/07/24 13:15 Ur Specific [place] 1.020 (1.005-1.025) 05/07/24 13:15 Urine Protein 30 (1+) mg/dL (Neg-Trace) H 05/07/24 13:15 Urine Glucose (UA) Negative mg/dL (Negative) 05/07/24 13:15 Urine Ketones Negative mg/dL (Negative) 05/07/24 13:15 Urine Blood Moderate (2+) (Negative) H 05/07/24 13:15 Urine Nitrite Positive (Negative) H 05/07/24 13:15 Ur Leukocyte Esterase Large (3+) (Negative) H 05/07/24 13:15 Urine RBC 3-5 /HPF (0-2) H 05/07/24 13:15 Urine WBC >50 /HPF (0-5) H 05/07/24 13:15 Ur Squamous Epith Cells 3-5 /HPF (0-2) 05/07/24 13:15 Urine Bacteria 4+ (None Seen) 05/07/24 13:15 Hyaline Casts 0-2 /LPF (0-2) 05/07/24 13:15 Stool Occult Blood POSITIVE (NEGATIVE) 05/07/24 13:45 C. difficile Tox B Gene NEGATIVE (Negative) 05/09/24 17:54 Blood Type O Negative 05/07/24 11:17 Antibody Screen NEGATIVE 05/07/24 11:17 Impressions Abdomen/Pelvis CT 05/07/24 13:40 IMPRESSION: Slightly hyperemic mucosa distal sigmoid colon and rectum but no aditi contrast pooling seen in the lumen. There is diffuse sigmoid diverticulosis with mural thickening and minimal pericolic fat stranding suggestive of diverticulitis. Mild constipation. Fleischner guidelines were followed. Electronically signed by: Julian Chun MD 05/07/2024 02:42 PM [facility] <Desiree Clements MD - Last Filed: 05/10/24 11:38> Discharge Plan Discharge Anticipated Discharge Date/Time: 05/10/24 18:34 <Desiree Clements MD - Last Filed: 05/10/24 11:38> Patient Disposition: Home, Self-Care <Desiree Clements MD - Last Filed: 05/10/24 11:38> Discharge Diagnosis: GI bleeding diverticulitis <Desiree Clements MD - Last Filed: 05/10/24 11:38> GI bleeding diverticulitis <Tristan Robbins MD - Last Filed: 05/11/24 13:25> Referrals: [facility] ([facility]) [Other] - 1 Week (A REFERRAL HAS BEEN PLACED FOR HOME HEALTH SERVICES, SOMEONE FROM [facility] WILL CONTACT YOU ONCE YOU ARE HOME. PLEASE FEEL FREE TO CALL [phone] WITH ANY QUESTIONS. ) Kala Lundberg MD [Primary Care Provider] - 1 Week Vivian Reyes MD [Physician] - 2 Weeks Rene Ray MD [Physician] - 1 Week <Desiree Clements MD - Last Filed: 05/10/24 11:38> Discharge Medications: New cefuroxime axetil 500 mg tablet 500 mg PO BID Qty: 10 0RF metronidazole 500 mg tablet 500 mg PO TID Qty: 15 0RF Pentasa 250 mg Capsule, Extended Release 1,000 mg PO QID Qty: 360 0RF omeprazole 20 mg Capsule,Delayed Release(Dr/Ec) 20 mg PO BID@0630,1630 Qty: 90 0RF pramoxine [Proctofoam] 1 % foam 1 appl MA BID PRN (Reason: hemorrhoids) Qty: 15 0RF Continued albuterol sulfate 90 mcg/actuation HFA aerosol inhaler 2 puff inhalation Q6H PRN (Reason: shortness of breath or wheezing) Qty: 8.5 0RF levothyroxine 75 mcg tablet 75 mcg PO DAILY Qty: 90 1RF hydrocortisone [Proctosol HC] 2.5 % cream with perineal applicator 1 appl MA BID-QID PRN (Reason: hemorrhoids) Qty: 30 0RF rosuvastatin 5 mg tablet 5 mg PO TUTH diltiazem HCl 240 mg capsule,extended release 24hr 240 mg PO DAILY flecainide 50 mg tablet 75 mg PO BID Held Eliquis 5 mg tablet 5 mg PO BID Hold Instructions: Resume on 05/14/24. Rx Instructions: stop for 3 days before colonoscopy Discontinued chlorthalidone 25 mg tablet 25 mg PO DAILY <Desiree Clements MD - Last Filed: 05/10/24 11:38> Discharge Orders: Discharge Order (Routine); Ordered 05/11/24 Ordered By: Tristan Robbins <Desiree Clements MD - Last Filed: 05/10/24 11:38> Diet: Advance to usual diet <Desiree Clements MD - Last Filed: 05/10/24 11:38> Advance to usual diet <Tristan Robbins MD - Last Filed: 05/11/24 13:25> Activity on Discharge: As tolerated <Desiree Clements MD - Last Filed: 05/10/24 11:38> As tolerated <Tristan Robbins MD - Last Filed: 05/11/24 13:25> Stand Alone Forms: Patient Portal Discharge page <Desiree Clements MD - Last Filed: 05/10/24 11:38> Print Language: Chinese <Desiree Clements MD - Last Filed: 05/10/24 11:38> Care Plan Goals: control of GI bleeding <Desiree Clements MD - Last Filed: 05/10/24 11:38> Health Concerns: GI bleeding diverticulitis Anal lesion -- follow up for biopsy. Hold your eliquis until 05/14/24 <Desiree Clements MD - Last Filed: 05/10/24 11:38> Plan of Treatment: take antibiotics as prescribed follow up with [facility]ology in 2 weeks Follow up with Dr. Ray in 1-2 weeks for biopsy results Stop taking your Chlorthaidone for now Please follow up with your primary care doctor within 1 week. Return to the hospital if you experience recurrent or worsening symptoms. You may have periodic bleeding from your biopsy site. If it does not stop on its own or is a large amount, return to the ED <Desiree Clements MD - Last Filed: 05/10/24 11:38> Assessment: See Discharge Summary. <Desiree Clements MD - Last Filed: 05/10/24 11:38>
--- NOTE | 2024-05-10 12:16 | HO.OPN-COLON ---
Colonoscopy Operative Note Operative Note Date of Service: 05/10/24 Narrative: Operative Information Procedure Description: EGD, Colonoscopy Indication: Rectal bleeding Anesthesia: MAC FLEXIBLE TRANSORAL UPPER GASTROINTESTINAL ENDOSCOPY AND COLONOSCOPY PROCEDURE NOTE UPPER ENDOSCOPY Consent: Indications for the procedure and potential complications of bleeding, perforation, reaction to medications and missed diagnosis were discussed with the patient and informed consent was obtained. Instrument: Olympus GIF H 190 J mid size upper endoscope Monitoring: Vital signs and clinical assessment, continuous EKG monitoring, Pulse oximetry, Carbon Dioxide monitoring and blood pressure monitoring were done throughout the procedure. Procedure: The patient was placed in the left lateral decubitis position and pre-procedure medications were administered and a bite block was placed. The endoscope was inserted into the mouth and advanced under direct vision to the third part of duodenum. A careful inspection was made as the upper endoscope was withdrawn including a retroflexed examination of the proximal stomach; Findings and interventions are described below. Findings: Larynx:normal Esophagus: GE junction at 35 cm, diaphragm hiatus at 37 cm, consistent with 2 cm hiatal hernia, schatzki ring noted Stomach: Patchy erythema, Biopsies were obtained. Grade 2 flap valve on retroflexed examination of the cardia. Duodenum: Normal bulb and descending duodenum, Intervention: Biopsies as noted above, COLONOSCOPY Instrument: Olympus variable stiffness pediatric scope 190L Colonoscopy Monitoring: Vital signs and clinical assessment, continuous EKG monitoring, Pulse oximetry, Carbon Dioxide monitoring and blood pressure monitoring were done throughout the procedure. Colon withdrawal time was 10 minutes. Procedure: The patient was placed in the left lateral decubitis position and pre-procedure medications were administered. After a digital rectal examination of the ano-rectum, the video colonoscope was inserted into the rectum and advanced through the colon to the right colo The colonoscope was slowly withdrawn in a retrograde panoramic fashion and the colon mucosa was carefully examined including a retroflexed view of the rectum. Findings and interventions are described below. Procedure Difficulty:moderate Findings: Terminal Ileum-not reached Cecum:not seen Ascending Colon: few folds with erosions and ulcerations, bx taken Transverse Colon -normal Descending Colon:normal Sigmoid Colon: erythema and friable mucosa from rectum to about 35-40 cm, bx taken Rectum: Retroflexion not done, erythema and friable mucosa with edema Anorectum - 2-3 cm irregular, hard lesion on the anal verge with partial bloackage of anal outlet which was oozing Colon preparation: [place] Bowel Preparation Scale Right colon; 1 Transverse colon: 1-2 Left colon; 1-2 (0 = Unprepared colon segment with mucosa not seen due to solid stool that cannot be cleared. 1 = Portion of mucosa of the colon segment seen, but other areas of the colon segment not well seen due to staining, residual stool and/or opaque liquid. 2 = Minor amount of residual staining, small fragments of stool and/or opaque liquid, but mucosa of colon segment seen well. 3 = Entire mucosa of colon segment seen well with no residual staining, small fragments of stool or opaque liquid) Impression and Post Procedure Diagnosis: Endoscopy Findings: schatzki ring gastritis Colonoscopy Findings: anal lesion colitis, possible crohns Plan: Await Pathology results commence mesalamine, surgical consult for bx of anal lesion hold eliquis for the moment High fiber diet leaflet avoid straining at stool, epsom salts and sitz bath, anusol supps or cream Above findings were reviewed with the patient and relevant handouts were provided if indicated.
--- NOTE | 2024-05-10 12:46 | HO.PM.IMPN ---
Subjective Subjective Date of Service: 05/10/24 Interval History: had some bleeding with prep no abd pain Review of Systems Review of Systems: Yes all other systems are reviewed and are negative Physical Exam Vital Signs: Vital Signs: Last Vital Signs Temp 97.3 F 05/10/24 12:22 Pulse 71 05/10/24 12:37 Resp 16 05/10/24 12:37 BP 104/59 L 05/10/24 12:37 Pulse Ox 94 05/10/24 12:37 O2 Del Method Room Air 05/10/24 12:37 BMI result Body Mass Index 31.2 Gen: in no acute distress HEENT: sclera anicteric, moist mucus membranes Neck: supple Lungs: clear to auscultation bilaterally Heart: regular rate and rhythm, no murmurs Abd: soft, non-tender, non-distended Ext: no edema Skin: warm/well-perfused Neuro: alert and oriented x3, no focal findings Psych: appropriate affect Objective Data Active Medications Acetaminophen (Acetaminophen 325 Mg Tablet) 650 mg PO Q6H PRN PRN Reason: Pain, Mild 1-3,fever,headache Albuterol Sulfate (Albuterol Sulfate 90 Mcg 8 Gm Inhaler) 2 puff INHALE Q6H PRN PRN Reason: shortness of breath or wheezing Calcium Carbonate (Calcium Carbonate 750 Mg Tab.Chew) 750 mg PO Q4H PRN PRN Reason: Heartburn Ceftriaxone Sodium (Ceftriaxone Sodium 2 Gm Vial) 2 gm IVPUSH Q24H [facility] Last Admin: 05/09/24 14:54 Dose: 2 gm Documented By: SELENE Diltiazem HCl (Diltiazem Hcl Cd 240 Mg Cap.Er.Deg) 240 mg PO DAILY [facility]; Protocol Last Admin: 05/10/24 08:09 Dose: 240 mg Documented By: LIO Enoxaparin Sodium (Enoxaparin Sodium 40 Mg/0.4 Ml Syringe) 40 mg SUBCUT Q24H [facility] Last Admin: 05/10/24 08:12 Dose: Not Given Documented By: LIO Non-Admin Reason: held for surgery Flecainide Acetate (Flecainide Acetate 50 Mg Tablet) 75 mg PO BID [facility] Last Admin: 05/10/24 08:10 Dose: 75 mg Documented By: LIO Hydrocortisone (Hydrocortisone 2.5 % Rectal Cr 30 Gm Tube) 1 appl NV QID PRN PRN Reason: hemorrhoids Metronidazole (Flagyl) 500 mg in 100 mls @ 100 mls/hr IV Q8H [facility] Last Infusion: 05/10/24 12:28 Dose: Infused Documented By: LIO Levothyroxine Sodium (Levothyroxine Sodium 75 Mcg Tablet) 75 mcg PO DAILY [facility] Last Admin: 05/10/24 08:14 Dose: Not Given Documented By: LIO Non-Admin Reason: Medication Discontinued Magnesium Hydroxide (Milk Of Magnesia 30 Ml Oral.Susp) 30 ml PO DAILY PRN PRN Reason: Constipation Melatonin (Melatonin 3 Mg Tablet) 6 mg PO BEDTIME PRN PRN Reason: Insomnia Naloxone HCl (Naloxone Hcl 0.4 Mg/Ml Vial) 0.04 mg IVPUSH Q5M PRN PRN Reason: Excessive sedation or RR < 8 Ondansetron HCl (Ondansetron Hcl 4 Mg/2 Ml Vial) 4 mg IVPUSH Q4H PRN PRN Reason: Nausea and Vomiting Sodium Chloride (0.9 % Sodium Chloride Flush 3 Ml Syringe) 3 ml IVFLUSH QSHIFT [facility] Last Admin: 05/10/24 08:10 Dose: 3 ml Documented By: LIO Labs 05/09/24 10:02 05/08/24 10:31 Labs: Laboratory Results - last 24 hr 05/09/24 05/10/24 17:54 09:18 PT 15.3 H D INR 1.3 H C. difficile Tox B Gene NEGATIVE Microbiology Microbiology Results: Microbiology 05/07/24 Unknown Urine Culture - Final Urine clean catch - Clean Catch Midstream Escherichia coli#2 Escherichia coli 05/07/24 15:10 Blood Culture - Preliminary Blood - Venous No growth after 48 hours. 05/07/24 15:20 Blood Culture - Final Blood - Venous Bacillus species Assessment and Plan (1) BRBPR (bright red blood per rectum): Status: Acute Plan d4 for 78yo F with paroxysmal atrial fibrillation on apixaban and flecainide, CKD3, HLD, hypothyroidism, and COPD presenting with BRBPR, anorexia, unintentional weight loss, change in school caliber and abdominal discomfort; found to have external hemorrhoid and diffuse sigmoid diverticulosis with diverticulitis. EGD 05/10 with Schatzki ring + gastritis, C-scope 05/10 with colitis [possible Crohn's?] and 2-3 cm oozing, irregular had lesion on anal verge with partial blockage of outlet anal lesion - Hold enoxaparin, consult General Surgery diverticulitis colitis - 05/07-05/14 ceftriaxone and metronidazole [can switch to PO cefuroxime + metronidazole upon discharge] - Per GI, will give mesalamine 1g qid + Proctofoam [place] gastritis - PPI pAF - Hold apixaban. Continue flecainide and diltiazem HTN - Continue diltiazem; hold chlorthalidone hypothyroidism - Continue LT4 COPD - prn albuterol VTE ppx - SCDs dispo - home pending surgical biopsy of anal lesion In my clinical judgment, the patient requires continued inpatient hospitalization for the following reasons: bleeding anal lesion Total time managing care of this patient today: 35 minutes. Quality Stroke Does the patient have a stroke diagnosis?: No VTE Prior VTE?: No VTE Risk Level:: Medical - moderate - high VTE Device Contraindication: N/A - Device Ordered VTE Drug Contraindication: Treatment Not Indicated
[2024-05-10 13:55] LABS: Adenovirus F 40/41 Not Detected (Not Detect.); Astrovirus Not Detected (Not Detect.); Campylobacter Not Detected (Not Detect.); Cryptosporidium Not Detected (Not Detect.); Cyclospora cayetanensis Not Detected (Not Detect.); E. coli EAEC Not Detected (Not Detect.); E. coli EPEC Not Detected (Not Detect.); E. coli ETEC Not Detected (Not Detect.); E. coli STEC Not Detected (Not Detect.); Entamoeba histolytica Not Detected (Not Detect.); Giardia lamblia Not Detected (Not Detect.); Norovirus GI/GII Not Detected (Not Detect.); Plesiomonas shigelloides Not Detected (Not Detect.); Rotavirus A Not Detected (Not Detect.); Salmonella Not Detected (Not Detect.); Sapovirus Not Detected (Not Detect.); Shigella sp./EIEC Not Detected (Not Detect.); Vibrio Not Detected (Not Detect.); Vibrio Cholerae Not Detected (Not Detect.); Yersinia enterocolitica Not Detected (Not Detect.)
[2024-05-10] MEDS: cefTRIAXone sodium 2 GM VIAL IVPUSH (14:50)
[2024-05-10] MEDS: Omeprazole 20 MG CAPSULE.DR PO (15:58)
[2024-05-10] MEDS: Mesalamine 250 MG CAPSULE.ER 1000 MG PO ×2 (16:34→22:13)
--- NOTE | 2024-05-10 17:45 | PC.NURSE ---
Lost IV access, unable to get peripheral access at this time, locating nurse who can provide US guided IV. MD Clements made aware, per MD pt can switch to PO antibiotics.
[2024-05-10] MEDS: cefuroxime axetiL 500 MG TABLET PO (17:56)
[2024-05-11] MEDS: metroNIDAZOLE 500 MG TABLET PO ×2 (00:29→10:01)
[2024-05-11 03:36] VITALS: BP 132/60; PULSE 75; RESP 16; TEMP 36; O2SAT 94
[2024-05-11] MEDS: Omeprazole 20 MG CAPSULE.DR PO (05:43)
[2024-05-11] MEDS: cefuroxime axetiL 500 MG TABLET PO (05:43)
[2024-05-11 07:11] VITALS: BP 119/56; PULSE 67; RESP 18; TEMP 36.7; O2SAT 95
[2024-05-11] MEDS: Flecainide Acetate 50 MG TABLET 75 MG PO (10:00)
[2024-05-11] MEDS: dilTIAZem HCL CD 240 MG CAP.ER.DEG PO (10:00)
[2024-05-11] MEDS: Mesalamine 250 MG CAPSULE.ER 1000 MG PO ×2 (10:00→13:00)
[2024-05-11] MEDS: Levothyroxine Sodium 75 MCG TABLET PO (10:01)
--- NOTE | 2024-05-11 10:25 | PM.CNGS ---
History of Present Illness Consult details Consult date: 05/11/24 Narrative: 78-year-old female initially admitted 5 days ago for passage of bright blood per rectum. She actually is on Eliquis for atrial fibrillation She underwent a colonoscopy yesterday and there was note of a friable, firm mass in the anal verge. I was therefore consulted for biopsy. She actually says she has had this bleeding for a few months now. She denies any pain but does notice tenderness when she touches the area. Review of Systems Constitutional: Constitutional: Denies chills and Denies fever(s) Cardiovascular: Cardiovascular: Denies chest pain Respiratory: Respiratory: Denies cough Gastrointestinal: Gastrointestinal: Denies abdominal pain and Reports hematochezia Genitourinary: Genitourinary: Denies difficulty voiding PMFSH Past Medical History Medical History (Updated 05/11/24 @ 13:08 by Rene Ray MD) Mass of anus Current use of long filler cigar roller machine anticoagulation External hemorrhoids Hyperuricemia Vitamin D deficiency Impaired fasting glucose Inflammatory arthritis Multinodular thyroid Mixed stress and urge urinary incontinence Dyslipidemia Paroxysmal atrial fibrillation Chronic kidney disease, stage 3 Osteoporosis COPD (chronic obstructive pulmonary disease) Acquired hypothyroidism Family History Family History Father CVA (cerebral vascular accident) AAA (abdominal aortic aneurysm) Mother Diabetes mellitus HTN (hypertension) Sister Diabetes mellitus Son Substance use disorder Son Substance use disorder Surgical History Surgical History Hx of colonoscopy S/P partial hysterectomy History of section Social History Social History Household Members: Children Housing: Other Housing Other:: Duplex Do you presently have visiting nurse or other home services: No Alcohol intake: current Alcohol intake frequency: does not drink Comment: steady on feet in room Patient Tobacco Use Status: Former Tobacco user Years Smoked: 20 years e-Cigarette/Vaping Use: Never Used Second Hand Smoke Exposure: No Advance Directives Date on File: 05/30/20 service: No Current occupational status: retired Cognitive needs: No Hearing needs: No Vision needs: Yes Meds Allergies Allergy/AdvReac Type Severity Reaction Status Date / Time tetracycline [TETRACYCLINE] Allergy Unknown ITCHINESS, Verified 05/07/24 10:26 rash nitrofurantoin Allergy Swelling Verified 05/07/24 10:26 atorvastatin [Lipitor] AdvReac Unknown Muscle pain Verified 05/07/24 10:26 bactrim Allergy Unknown Elevated Uncoded 01/05/24 10:52 LFTs/Itching/Nausea fentanyl AdvReac Severe Unconscious Uncoded 01/05/24 10:52 Active Medications: Current Medications Acetaminophen (Acetaminophen 325 Mg Tablet) 650 mg PO Q6H PRN PRN Reason: Pain, Mild 1-3,fever,headache Albuterol Sulfate (Albuterol Sulfate 90 Mcg 8 Gm Inhaler) 2 puff INHALE Q6H PRN PRN Reason: shortness of breath or wheezing Calcium Carbonate (Calcium Carbonate 750 Mg Tab.Chew) 750 mg PO Q4H PRN PRN Reason: Heartburn Cefuroxime Axetil (Cefuroxime Axetil 500 Mg Tablet) 500 mg PO Q12H [facility] Last Admin: 05/11/24 05:43 Dose: 500 mg Diltiazem HCl (Diltiazem Hcl Cd 240 Mg Cap.Er.Deg) 240 mg PO DAILY [facility]; Protocol Last Admin: 05/11/24 10:00 Dose: 240 mg Enoxaparin Sodium (Enoxaparin Sodium 40 Mg/0.4 Ml Syringe) 40 mg SUBCUT Q24H [facility] Last Admin: 05/10/24 08:12 Dose: Not Given Flecainide Acetate (Flecainide Acetate 50 Mg Tablet) 75 mg PO BID [facility] Last Admin: 05/11/24 10:00 Dose: 75 mg Hydrocortisone (Hydrocortisone 2.5 % Rectal Cr 30 Gm Tube) 1 appl ME QID PRN PRN Reason: hemorrhoids Levothyroxine Sodium (Levothyroxine Sodium 75 Mcg Tablet) 75 mcg PO DAILY [facility] Last Admin: 05/11/24 10:01 Dose: 75 mcg Magnesium Hydroxide (Milk Of Magnesia 30 Ml Oral.Susp) 30 ml PO DAILY PRN PRN Reason: Constipation Melatonin (Melatonin 3 Mg Tablet) 6 mg PO BEDTIME PRN PRN Reason: Insomnia Mesalamine (Mesalamine 250 Mg Capsule.Er) 1,000 mg PO QID [facility] Last Admin: 05/11/24 10:00 Dose: 1,000 mg Metronidazole (Metronidazole 500 Mg Tablet) 500 mg PO Q8H [facility] Last Admin: 05/11/24 10:01 Dose: 500 mg Naloxone HCl (Naloxone Hcl 0.4 Mg/Ml Vial) 0.04 mg IVPUSH Q5M PRN PRN Reason: Excessive sedation or RR < 8 Omeprazole (Omeprazole 20 Mg Capsule.Dr) 20 mg PO BID@0630,1630 [facility] Last Admin: 05/11/24 05:43 Dose: 20 mg Ondansetron HCl (Ondansetron Hcl 4 Mg/2 Ml Vial) 4 mg IVPUSH Q4H PRN PRN Reason: Nausea and Vomiting Pramoxine HCl (Pramoxine Hcl 1 % Rectal Foam 15 Gm) 1 appl ME BID [facility] Last Admin: 05/11/24 10:02 Dose: Not Given Sodium Chloride (0.9 % Sodium Chloride Flush 3 Ml Syringe) 3 ml IVFLUSH QSHIFT [facility] Last Admin: 05/11/24 10:02 Dose: Not Given Home Medications ?Medication ?Instructions ?Recorded ?Confirmed ?Last Taken ?Type apixaban 5 mg tablet (Eliquis) 5 mg PO BID 05/05/20 05/07/24 05/07/24 History flecainide 50 mg tablet 75 mg PO BID 09/09/22 05/07/24 05/07/24 History diltiazem HCl 240 mg 240 mg PO DAILY 03/07/23 05/07/24 05/07/24 History capsule,extended release 24 hr chlorthalidone 25 mg tablet 25 mg PO DAILY 05/07/24 05/07/24 05/07/24 History rosuvastatin 5 mg tablet 5 mg PO TUTH 05/07/24 05/07/24 05/03/24 History Physical Exam Vital Signs: Vital Signs: Last Vital Signs Temp 98.0 F 05/11/24 07:11 Pulse 67 05/11/24 07:11 Resp 18 05/11/24 07:11 BP 119/56 L 05/11/24 07:11 Pulse Ox 95 05/11/24 07:11 O2 Del Method Room Air 05/11/24 07:11 BMI result Body Mass Index 31.2 Const: General: comfortable and no acute distress Resp: Effort & Inspection: normal respiratory effort GI: Other: Rectal exam shows a large smooth mass in the anal verge, about 3 cm in widest dimension, with pearly like edges, highly suggestive of a squamous cell carcinoma Palpation (GI): Soft to palpation Results Labs 05/09/24 10:02 05/08/24 10:31 Labs: Urine 05/07/24 Range/Units 13:15 Urine Color Dark Yellow Urine Appearance Turbid Urine pH 6.0 (5.0-9.0) Ur Specific [place] 1.020 (1.005-1.025) Urine Protein 30 (1+) H (Neg-Trace) mg/dL Urine Glucose (UA) Negative (Negative) mg/dL All other labs normal. Assessment and Plan (1) Mass of anus: Status: Acute This appears to be very suspicious for a squamous cell anal carcinoma of the anal verge. I proceeded to do biopsies as the lesion was a little friable. This was achieved with small scissors and forceps There was note of good hemostasis She may restart Eliquis tomorrow. We will await for the path report. I anticipate periodic bleeding especially with her being on Eliquis. Procedures Date of Service Date of Service: 05/11/24 Procedure Note Procedure Note: Preop diagnosis: anal mass, suspicious for squamous cell carcinoma Postop diagnosis: The same Procedure: Biopsy of anal mass The patient was placed in the left lateral decubitus position. She would given verbal consent there was note of a large mass in the anal verge, about 3 cm in diameter, with pearly like edges highly suggestive of squamous cell carcinoma. I used was that in fine scissors to sample some wedge shaped tissue. There was note of good hemostasis afterwards. She tolerated procedure well.
[2024-05-11 11:56] VITALS: BP 112/56; PULSE 78; RESP 18; TEMP 36.9; O2SAT 95
[2024-05-11 14:35] VITALS: BP 139/63; PULSE 85; RESP 18; O2SAT 95
== END 2024-05-11 15:50 | disposition home or self-care (01) | DRG 374 ==
LOC: HO.ED 14:53 → HO.EDOVER 16:38 → HO.IMC 19:47
PROVIDERS: Internal Medicine Gastroenterology; Admitting Provider Family Medicine; Emergency Provider Emergency Medicine; PCP Internal Medicine; Visit Provider Family Medicine
PROC: 0DB78ZX Excision of Stomach, Pylorus, Via Natural or Artificial Opening Endoscopic, Diagnostic (ICD-10-PCS; principal; 2024-05-10 11:50)
DX: C21.0 Malignant neoplasm of anus, unspecified (principal); K29.71 Gastritis, unspecified, with bleeding; K50.911 Crohn's disease, unspecified, with rectal bleeding; N18.30 Chronic kidney disease, stage 3 unspecified; J44.9 Chronic obstructive pulmonary disease, unspecified; E03.9 Hypothyroidism, unspecified; K64.8 Other hemorrhoids; K44.9 Diaphragmatic hernia without obstruction or gangrene; E78.5 Hyperlipidemia, unspecified; I48.0 Paroxysmal atrial fibrillation; K22.2 Esophageal obstruction; Z66 Do not resuscitate; I12.9 Hypertensive chronic kidney disease with stage 1 through stage 4 chronic kidney disease, or unspecified chronic kidney disease; Z79.01 Long term (current) use of anticoagulants; Z79.899 Other long term (current) drug therapy
CPT/HCPCS: 36415; 74178; 80048; 80076; 81001; 82272; 83605; 83690; 83735; 85025; 85027; 85610; 86140; 86850; 86900; 86901; 87040; 87086; 87088; 87186; 87205; 87493; 87507; 88305; 88307; 88313; 88341; 88342; 93005; 99285; J0696; J1650; J1836; J2003; J2704; Q9967

== ENCOUNTER → 2024-05-07 10:23 | Outpatient (BNV) | payer MEDICARE, BC, SELFPAY | PROVIDERS: Emergency Provider Emergency Medicine; PCP Internal Medicine; Visit Provider Radiology Diagnostic Radiology | DX: K57.30 Diverticulosis of large intestine without perforation or abscess without bleeding (principal) | CPT/HCPCS: 74178 ==

== ENCOUNTER → 2024-05-07 10:23 | Outpatient (BNV) | payer MEDICARE, BC, SELFPAY | PROVIDERS: Admitting Provider Family Medicine; Emergency Provider Emergency Medicine; PCP Internal Medicine; Visit Provider Internal Medicine Cardiovascular Disease | DX: K92.2 Gastrointestinal hemorrhage, unspecified (principal) | CPT/HCPCS: 93010 ==

== ENCOUNTER → 2024-05-07 16:31 | Outpatient (BNV) | payer MEDICARE, BC, SELFPAY | PROVIDERS: Admitting Provider Family Medicine; Emergency Provider Emergency Medicine; PCP Internal Medicine; Visit Provider Family Medicine | DX: K62.5 Hemorrhage of anus and rectum (principal) | CPT/HCPCS: 99223; 99232 ==

== ENCOUNTER → 2024-05-07 16:31 | Outpatient (BNV) | payer MEDICARE, BC, SELFPAY | PROVIDERS: Admitting Provider Family Medicine; Emergency Provider Emergency Medicine; PCP Internal Medicine; Visit Provider Surgery | DX: K62.89 Other specified diseases of anus and rectum (principal); C44.520 Squamous cell carcinoma of anal skin | CPT/HCPCS: 11106; 99222 ==

== ENCOUNTER → 2024-05-07 16:31 | Outpatient (BNV) | payer MEDICARE, BC, SELFPAY | PROVIDERS: Admitting Provider Family Medicine; Emergency Provider Emergency Medicine; PCP Internal Medicine; Visit Provider Internal Medicine Gastroenterology | DX: K62.5 Hemorrhage of anus and rectum (principal) | CPT/HCPCS: 99223; 99232 ==

== ENCOUNTER 2024-05-24 10:28 | Outpatient (AMB) | payer MEDICARE, BC, SELFPAY ==
--- NOTE | 2024-05-24 10:28 | A.OFFVIS_ITS ---
Intake Visit Reasons: anal bx results Intake Note: This patient presents for anal biopsy results. Pt c/o;no concerns. Pipe Inspector Required: No Accompanied by: Self / Same As Patient Allergies tetracycline [TETRACYCLINE] Allergy (Unknown, Verified 05/24/24 10:33) ITCHINESS, rash nitrofurantoin Allergy (Verified 05/24/24 10:33) Swelling atorvastatin [Lipitor] Adverse Reaction (Unknown, Verified 05/24/24 10:33) Muscle pain bactrim Allergy (Unknown, Uncoded 05/24/24 10:33) Elevated LFTs/Itching/Nausea fentanyl Adverse Reaction (Severe, Uncoded 05/24/24 10:33) Unconscious Medication List - Last Reconciled 05/24/24 by Rene Ray MD albuterol sulfate 90 mcg/actuation 2 puffs inhalation Q6H PRN apixaban (Eliquis) 5 mg PO BID cefuroxime axetil 500 mg PO BID diltiazem HCl CD 240 mg PO DAILY flecainide 75 mg PO BID hydrocortisone 2.5% (Proctosol HC) 1 appl MO BID-QID PRN levothyroxine 75 mcg PO DAILY mesalamine (Lialda) 4.8 grams (4 x 1.2 gram) PO DAILY 30 days metronidazole 500 mg PO TID omeprazole 20 mg PO BID@0630,1630 pramoxine 1% (Proctofoam) 1 appl MO BID PRN rosuvastatin 5 mg PO TUTH HPI HPI anal bx results: Details: 78-year-old female here for results of her biopsy. I seen her as an inpatient in the hospital 2 weeks ago because of an anal lesion. I had done a biopsy at bedside. She currently is doing well at home. She remains active. She drives herself to all her appointments and is still very independent. She does describe this lump outside her anus with some pain and discomfort. 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 External hemorrhoids Hyperuricemia Vitamin D deficiency Impaired fasting glucose Inflammatory arthritis Multinodular thyroid Mixed stress and urge urinary incontinence Dyslipidemia Paroxysmal atrial fibrillation Chronic kidney disease, stage 3 Osteoporosis COPD (chronic obstructive pulmonary disease) Acquired hypothyroidism Surgical History Hx of colonoscopy S/P partial hysterectomy History of section Family History Father CVA (cerebral vascular accident) AAA (abdominal aortic aneurysm) Mother Diabetes mellitus HTN (hypertension) Sister Diabetes mellitus Son Substance use disorder Son Substance use disorder Social History Household Members: Children Housing: Other Housing Other:: [employer]lex Do you presently have visiting nurse or other home services: No Alcohol intake: current Alcohol intake frequency: does not drink Comment: steady on feet in room Patient Tobacco Use Status: Former Tobacco user Years Smoked: 20 years e-Cigarette/Vaping Use: Never Used Second Hand Smoke Exposure: No Advance Directives Date on File: 05/30/20 service: No Current occupational status: retired Cognitive needs: No Hearing needs: No Vision needs: Yes Review of Systems Const Denies chills and Denies fever(s) Card Denies chest pain, Denies dyspnea and Denies dyspnea on exertion Resp Denies cough, Denies dyspnea and Denies dyspnea on exertion GI Denies hematochezia and Denies change in bowel habits Denies hematuria Musc Denies back pain and Denies limited range of motion Neuro Denies focal weakness and Denies convulsions Psych Denies depression and Denies mood swings Physical Exam Const General: comfortable and no acute distress Resp Effort & Inspection: normal respiratory effort Cardio Rate: regular rate GI Other: Rectal exam shows this large mass at the anal verge, about 3 cm, smooth, with pearly edges Palpation (GI): Soft to palpation, not firm and nontender Assessment & Plan Assessment & Plan (1) Anal squamous cell carcinoma: Code(s): C21.0 - Malignant neoplasm of anus, unspecified Category: Medical Plan: Unfortunately, the biopsy of her anal mass shows squamous cell carcinoma. She will therefore need to be seen by the oncologist. She will benefit from chemotherapy and radiation as treatment. I explained the above to her . I also talked to her daughter Maricel about the path report and the plan. I told the patient to call me if she has any questions down the line or if she feels lost about her treatment direction I will arrange for her to be seen by Oncology. Coding Level of Care Code Est Pt Level 3 (85214) Diagnoses Anal squamous cell carcinoma C21.0
--- OUTSIDE RECORDS SUMMARY | 2024-05-24 14:01 | XMS_ITS | Data Portability ---
Author Organization [facility], , [facility] Address [address] [place] [address] Assessment Encounter Date Assessment Date Assessment LastModified [...] By Organization Details Last Modified Time 01/14/2015 [id number] cataracts-monito r . Rx change-new spectacle Rx given. RTC 1 year comp exam-cataracts. Patient wishes to have her epiphora addressed [email or web address] Not available 01/17/2015 15:45:52 01/20/2016 [id number] RTC 6 months for CEE or sooner prn [email or web address] Not available 01/20/2016 10:56:58 Reason for Referral None Reported. Results Created Date Observation Date Name Description Value Unit Range Abnormal Flag Note LastModifiedBy Organization Detail LastModifiedTime 04/06/20 10 03/26/2010 mammo gram, scree yariel No observ ation record ed. [facility] (Imaging) [address] , [place], [address], 11/17/2012 04:34:18 Result Notes None recorded. Problems Name Problem SNOMED Code Status Onset Date Resolution Date Notes Provider Name and Address Organization Details Recorded Time Nuclear senile cataract 568650540 Active Alphonse Buckley, OD [address] [place], [address] , [facility] 5 15:45:52 Regular astigmatis m 26157019 Active Alphonse Buckley, OD [address] [place], [address] , [facility] 5 15:45:52 Mixed hyperlipid emia 945413887 Active 2004 Randi combs, [facility] 5 15:37:26 Presbyopia 05084328 Active 2008 Alphonse Buckley, OD [address] [place], [address] , [facility] 5 15:45:52 Cortical senile cataract 05784912 Active 2005 Alphonse Buckley, OD [address] [place], [address] , [facility] 5 15:45:52 Astigmatis m 28767358 Active 2005 Not Available [facility] 3 03:07:04 Corneal ulcer 42041276 Active 2005 Not Available [facility] 3 03:07:04 Neck pain 71770236 Completed 200503/14/2013 Not Available [facility] 3 02:00:32 Marginal corneal ulcer 50148080 Active 2006 Not Available [facility] 3 03:07:04 Glucose level outside reference range 550864743 Active 2004 Not Available [facility] 3 03:07:04 Incipient senile cataract 503053461 Active 2007 Not Available [facility] 3 03:07:04 Hypermetro lila 02181811 Active 2007 Alphonse Buckley, OD [address] [place] [address], [place], [address] , [facility] 5 15:45:52 Red eye Completed 200603/14/2013 Not Available [facility] 3 02:04:06 Keratoconj unctivitis 00658149 Active 2005 Not Available [facility] 3 03:07:04 Common cold 31190296 Completed 200403/14/2013 Not Available [facility] 3 02:00:24 On examinatio n - a rash Completed 200503/14/2013 Not Available [facility] 3 02:00:45 Dry eyes 538503160 Active 2005 Not Available [facility] 3 03:07:04 Osteoporos is 07340214 Active 2005 Not Available [facility] 3 03:07:04 Acute conjunctiv itis 42683250 Completed 200003/14/2013 Not Available [facility] 3 02:02:28 Malaise and fatigue 433616984 Completed 200403/14/2013 Not Available [facility] 3 02:00:14 Pain in eye 22281748 Completed 200603/14/2013 Not Available [facility] 3 02:03:50 Problem Notes None recorded. Procedures Surgical History Date Name Laterality Status Provider Name and Address Organization Details Recorded Time 01/14/2015 Refraction completed Petra Berman MA [facility] 01/14/2015 11:08:17 Imaging Results Imaging Date Name Status LastModified by Organiz ation Details LastModified Time 03/26/2010 mammogram, screening completed [facility] (Imaging) [address], [place], [address], 11/17/2012 04:34:18 Procedure Notes None recorded. Medical Equipment None Reported. Allergies Allergen ID Allergen Name Allergen Category Reaction Reaction Severity Criticality Documentation Date Start Date Code Code System Note Provider Name and Address Organization Details Recorded Time 348394 tetracycl ine medicatio n itching Not available Not available 01/14/2015 14845 RxNorm Petra Berman MA [facility] 5 11:08:12 Medications Name Sig [...] Available Not Available Not Available Fluzone High-Dose 0649-9914 (PF) 180 mcg/0.5 mL intramuscul ar syringe [...] influenza, unspecified formulation 1 completed Not Available [facility] 03/10/2011 05:20:34 influenza, unspecified formulation 5 completed Not Available [facility] 03/10/2011 05:21:29 Past Encounters Encounter ID Performer Location Encounter Start Date Encounter Closed Date Diagnosis/Indication Diagnosis SNOMED-CT Code Diagnosis ICD10 Code Diagnosis Note [id number] [facility], [place]ICE [address] [place] [address] 03/11/2000 09:00:00 05/15/2008 02:02:29 [id number] , [facility], [place] [place] [address] 03/08/2001 15:30:00 05/15/2008 02:02:[id number] [facility], [address]ICE [address] [place] [address] 04/24/2001 10:45:00 05/15/2008 02:02:[id number] [facility], [address]ICE [address] [place] [address] 09/07/2004 13:09:20 09/09/2004 17:51:07 [id number] Radiology , [facility] [address] [place] [address] 09/11/2004 11:42:55 09/14/2004 08:33:53 [id number] LAB - [address] [address] 09/11/2004 07:49:06 09/11/2004 07:49:[id number] [facility], OFFICE [address] [place] [address] 03/17/2005 14:44:07 03/24/2005 13:17:18 [id number] Radiology , [facility] [address] [place] [address] 09/13/2005 13:13:44 09/14/2005 08:31:37 [id number] LAB - [facility] [address] [place] [address] 09/13/2005 14:32:54 09/13/2005 14:33:[id number] [facility], OFFICE [address] [place] [address] 09/13/2005 13:38:37 09/14/2005 15:50:43 [id number] Eye Care, [facility] [address] [place] [address] 09/27/2005 10:10:47 05/15/2008 02:02:29 [id number] Optical, [facility] [id number] 09/27/2005 12:37:27 09/27/2005 12:37:57 [id number] Radiology , [facility] [place] 09/27/2005 09:37:09 05/15/2008 02:02:29 [id number] Eye Care, [facility] [place] 6 10/04/2005 14:40:45 05/15/2008 02:02:29 [id number] LAB - [facility] [place] 6 12/20/2005 09:04:10 12/20/2005 09:04:34 [id number] Eye Care, [facility] [place] 6 03/31/2006 17:18:53 04/01/2006 09:58:16 [id number] Eye Care, [facility] [place] 6 07/18/2006 11:42:47 07/18/2006 16:44:48 [id number] Eye Care, [facility] [id number] 6 07/19/2006 11:40:18 07/19/2006 15:22:27 [id number] Eye Care, [facility] [id number] 6 07/21/2006 09:36:13 07/21/2006 15:44:48 [id number] Eye Care, [facility] [id number] 6 07/22/2006 09:40:07 07/22/2006 15:00:51 [id number] Eye Care, [facility] [id number] 6 07/28/2006 09:45:06 07/28/2006 17:06:46 [id number] Radiology , [facility] [id number] 6 11/24/2006 08:36:18 11/25/2006 09:18:40 [id number] Radiology , [facility] [id number] 6 11/24/2006 00:00:00 05/15/2008 02:02:29 [id number] Radiology , [address] [address] 11/27/2007 09:29:12 11/28/2007 09:22:50 [id number] Radiology , [address] [address] 11/27/2007 00:00:00 05/15/2008 02:02:29 [id number] Eye Care, [address] [address] 03/26/2008 15:52:05 03/28/2008 10:28:39 [id number] Optical, [address] [address] 02/04/2009 10:16:06 02/04/2009 16:31:36 [id number] Eye Care, [address] [address] 02/05/2009 13:53:21 02/05/2009 14:04:28 [id number] Radiology , [address] [address] 03/26/2010 15:28:08 03/30/2010 14:32:38 [id number] Alphonse Buckley, OD Eye Care, [address] [address] 01/14/2015 10:39:56 01/14/2015 12:04:17 Nuclear senile cataract 035713369 Cortical s enile cataract 76172296 Hypermetropia 27746869 Regular astigmatism 15609453 Presbyopia 20541083 Complainin g of - watering eyes 578344277 [id number] Laura Nick, OD Eye Care, [address] [address] 01/20/2016 10:13:22 01/20/2016 10:52:02 Nuclear senile cataract 314603956 H25.13 mild OU; pt ed limited views [...] [place] [employer] [address] [id number] Raquel Nicholas 02/05/2009 2 [place] [address] [id number] Raquel Nicholas 03/26/2010 2 [place] [address] [id number] Raquel Nicholas 01/14/2015 2 [place] [address] [id number] Raquel Nicholas 01/14/2015 1 [place] [facility] Raquel Nicholas [id number] Raquel Nicholas 01/20/2016 2 [place] [address] [id number] Raquel Nicholas 01/20/2016 1 [place] [facility] Raquel Nicholas [id number] Raquel Nicholas Notes Date Note Type Note Provider Name and Address Organization Details Recorded Time 01/20/2016 text/html CataractReported bypatient.Location:bi lateral Quality:painless Severity:mild Onset/Timing:gradual Laura Nick, [address], [place], [address], [facility] Medical [facility] 01/20/2016 10:58:09 OBGyn Episode No OBEpisode recorded.
--- OUTSIDE RECORDS SUMMARY | 2024-05-24 14:01 | XMS_ITS | Encounter Summary ---
Author Organization [facility], Address [address] [place] [address] Phone Care Team Providers Care Web Merchant Name Role Phone Aakash Lundberg MD Primary Care Provider [phone]- [phone] Encounter Details Date Type Department Care Team (Late Contact Info) Description 07/16/2022 Documentation Only [facility] [address] [place] [address] Uvaldo Vivar MD [address] [place] [address] [place] [id number] Social History Tobacco Use Types Packs/Day Years Used Date Smoking Tobacco: Former Cigarettes Comments:Smoking History Inf o:Every day Alcohol Use Standard Drinks/Week Comments Never 0 (1 standard drink = 0.6 oz pure alcohol) Alcoholic Drinks/day: Occasional social drink Comments Unknown Sex and Gender Information Value Date Recorded Sex Assigned at Not on file Legal Sex Female 4:35 PM EST Gender Identity Not on file Sexual Orientation Not on file COVID-19 Exposure Response Date Recorded In the last 10 days, have yo u been in contact with someone who was confirmed or suspected to have Coronavirus/COVID-19? No / Unsure 07/07/2022 2:41 PM EDT documented as of this encounter Plan of Treatment Upcoming Encounters Date Type Department Care Team (Late Contact Info) Description 05/06/2025 1:30 PM EST Office Visit [facility] [place] [address] [place] [address] Uvaldo Vivar MD [address] [place] [address] [address] [place] [address] documented as of this encounter Visit Diagnoses Not on filedocumented in this encounter Care Teams Web Merchant Relationship Specialty Start Date End Date Aakash Lundberg MD [address] [place] [address] PCP - General Internal Medicine 04/09/21 documented as of this encounter
--- OUTSIDE RECORDS SUMMARY | 2024-05-24 14:01 | XMS_ITS | Encounter Summary ---
Author Organization [facility] Address [address] [facility] [address] [place] [address] Phone Care Team Providers Care Seating Captain Name Role Phone Aakash Lundberg MD Primary Care Provider [phone]- [phone] Reason for Visit * Reason Comments Med Refill Encounter Details Date Type Department Care Team (Late Contact Info) Description 10/04/2022 Refill [facility] [address] [place] [address] Gustavo Pina MD [address] [facility] [address] [place] [phone] Social History Tobacco Use Types Packs/Day Years [...] on file Sexual Orientation Not on file documented as of this encounter Plan of Treatment Upcoming Encounters Date Type Department Care Team (Late st Contact Info) Description 05/06/2025 1:30 PM EST [facility] [address] [place] [address] Uvaldo Vivar MD [address] [facility] [address] [place] [phone] documented as of this encounter Visit Diagnoses Not on filedocumented in this encounter Care Teams Seating Captain Relationship Specialty Start Date End Date Aakash Lundberg MD [facility] [place] [address] PCP - General Internal Medicine 04/09/21 documented as of this encounter
--- OUTSIDE RECORDS SUMMARY | 2024-05-24 14:01 | XMS_ITS | Encounter Summary ---
Author Organization [facility], Address [address] [place] [address] Phone Care Team Providers Care Manager Acute Name Role Phone Aakash Lundberg MD Primary Care Provider +1- [phone] Encounter Details Date Type Department Care Team (Late st Contact Info) Description 05/02/2024 1:30 PM EST Office Visit [facility], [facility] [address] [address] Uvaldo Vivar MD [address] [place] [address] [place] [address] [place] [address] Chronic kidney disease, stage 2 (mild) (Primary Dx); Essential (primary) hypertension Social History Tobacco Use Types Packs/Day Years [...] on file documented as of this encounter Progress Notes * Uvaldo Vivar MD - 05/02/2024 1:30 PM EST Images from the original note were not included. PATIENT: Raquel Nicholas : 1945 ENCOUNTER: 05/02/2024 PCP: Aakash Lundberg MD HPI: Raquel Nicholas is a 78 y.o. year old female with a history of Hypertensive disease CKD stage II who ishere for routine follow-up. Raquel continues to do remarkably well has been taking diltiazem and chlorthalidone as part of her antihypertensive regimen, denies any weakness fatigue occasionally has muscle aches she takes a statin twice a week. Here for routine CKD follow-up. ROS: Constitutional: No fever. Respiratory: No shortness of breath. Cardiovascular: No chest pain. Gastrointestinal: No abdominal pain, nausea or vomiting. Genitourinary: No hematuria. All other systems reviewed and are negative. PAST MEDICAL HISTORY: Patient Active Problem List Diagnosis Date Noted Chronic kidney disease, stage 2 (mild) 10/13/2023 Essential (primary) hypertension 07/07/2022 Systolic murmur 06/29/2021 Pure hypercholesterolemia 06/29/2021 Paroxysmal atrial fibrillation (HCC) 06/29/2021 Ophthalmic migraine 06/29/2021 Hyperlipidemia 06/29/2021 Chronic obstructive pulmonary disease (HCC) 06/29/2021 Chronic kidney disease stage 3 (HCC) 06/29/2021 Stage 3a chronic kidney disease (HCC) 06/29/2021 Renal osteodystrophy 06/29/2021 Chronic renal disease 01/08/2014 PAST SURGICAL HISTORY: Past Surgical History: Procedure Laterality Date HYSTERECTOMY Partial SOCIAL HISTORY: Social History Tobacco Use Smoking status: Former Current packs/day: 3.00 Types: Cigarettes Smokeless tobacco: Not on file Tobacco comments: Smoking History Info:Every day Substance Use Topics Alcohol use: Never Comment: Alcoholic Drinks/day: Occasional social drink FAMILY HISTORY: Family History Problem Relation Age of Onset Stroke Father MEDICATIONS: Outpatient Encounter Medications as of 05/02/2024 Medication Sig Dispense Refill dilTIAZem HCl ER 240 MG tablet sustained-release 24 hour Take 1 tablet by mouth 1 (one) time each day Calcium 500-125 MG-UNIT tablet Take 1 tablet by mouth 1 (one) time each day Calcium Citrate 250 MG tablet Take 2 tablets by mouth 2 (two) times a day chlorthalidone 25 MG tablet Take 1 tablet (25 mg total) by mouth 1 (one) time each day 90 tablet 3 cholecalciferol (VITAMIN D-3) 10 MCG (400 UNIT) tablet Take 1 capsule by mouth 1 (one) time each day D3-1000 25 MCG (1000 UT) capsule Take 1,000 Units by mouth 1 (one) time each day dilTIAZem CD (Cardizem CD) 180 MG 24 hr capsule Take 1 capsule (180 mg total) by mouth 1 (one) timeeach day 30 capsule 11 Eliquis 5 MG tablet flecainide (TAMBOCOR) 50 MG tablet Take 50 mg by mouth in the morning and 50 mg in the evening. levothyroxine (SYNTHROID, LEVOTHROID) 75 MCG tablet Take 75 mcg by mouth 1 (one) time each day levothyroxine (SYNTHROID, LEVOTHROID) 75 MCG tablet Take 1 tablet by mouth 1 (one) time each day rosuvastatin (CRESTOR) 5 MG tablet Take 5 mg by mouth 2 (two) times a week No facility-administered encounter medications on file as of 05/02/2024. MEDICATION REVIEW: I have reviewed the patient's current medications. ALLERGIES: is allergic to statins, tetracycline, and tetracyclines & related. PHYSICAL EXAM: BP 130/64 Constitutional: No apparent distress Extremities: Edema None LABORATORY REVIEW: I have reviewed the labs noted above as well as in the chart, in CIS and in Care Everywhere. DOCUMENTATION REVIEW: I have reviewed the applicable outside notes located in the chart, in CIS and in Care Everywhere. ASSESSMENT: 1. Chronic kidney disease, stage 2 (mild) 2. Essential (primary) hypertension Raquel is a very pleasant 78-year-old female with known longstanding history of mild CKD and hypertension who is here for routine follow-up. CKD stage II fortunately during previous years she has had no evidence of kidney disease progression. From the CKD perspective fortunately there has been no progression renal parameters remain quite stable therefore I have no concerns for deterioration of kidney function at present time. Hypertensive disorder very close to target as of today's blood pressure in office she will continueon Cardizem and chlorthalidone 25 mg 3 times a week, she is due to have blood work I took the liberty to send lab tests for her, this also includes lipid profile. If all stable. I will be happy to follow with her in the next year Orders Placed This Encounter Renal Function Panel Vitamin D 25 Hydroxy CBC Iron Panel (Fe, TIBC, TSAT) PTH, Intact Lipid panel Hemoglobin A1c Uric Acid Urine Albumin / Creatinine Ratio Hepatic function panel Creatine Kinase documented in this encounter Plan of Treatment Upcoming Encounters Date Type Department Care Team (Late st Contact Info) Description 05/06/2025 1:30 PM EST Office Visit [facility] [address] [place] [address] Uvaldo Vivar MD [address] [place] [phone] Scheduled Orders Name Type Priority Associated Diagnoses Orde r Schedule Renal Function Panel Lab Routine Chronic kidney disease, stage 2 (mild) Essential (primary) hypertension Expected: 05/02/2024, Expires: 06/02/2025 Vitamin D 25 Hydroxy Lab Routine Chronic kidney disease, stage 2 (mild) Essential (primary) hypertension Expected: 05/02/2024, Expires: 06/02/2025 CBC Lab Routine Chronic kidney disease, stage 2 (mild) Essential (primary) hypertension Expected: 05/02/2024, Expires: 06/02/2025 Iron Panel (Fe, TIBC, TSAT) Lab Routine Chronic kidney disease, stage 2 (mild) Essential (primary) hypertension Expected: 05/02/2024, Expires: 06/02/2025 PTH, Intact Lab Routine Chronic kidney disease, stage 2 (mild) Essential (primary) hypertension Expected: 05/02/2024, Expires: 06/02/2025 Lipid panel Lab Routine Chronic kidney disease, stage 2 (mild) Essential (primary) hypertension Expected: 05/02/2024, Expires: 06/02/2025 Hemoglobin A1c Lab Routine Chronic kidney disease, stage 2 (mild) Essential (primary) hypertension Expected: 05/02/2024, Expires: 06/02/2025 Uric Acid Lab Routine Chronic kidney disease, stage 2 (mild) Essential (primary) hypertension Expected: 05/02/2024, Expires: 06/02/2025 Urine Albumin / Creatinine Ratio Lab Routine Chronic kidney disease, stage 2 (mild) Essential (primary) hypertension Expected: 05/02/2024, Expires: 06/02/2025 Hepatic function panel Lab Routine Chronic kidney disease, stage 2 (mild) Essential (primary) hypertension Expected: 05/02/2024, Expires: 06/02/2025 Creatine Kinase Lab Routine Chronic kidney disease, stage 2 (mild) Essential (primary) hypertension Expected: 05/02/2024, Expires: 06/02/2025 documented as of this encounter Visit Diagnoses Diagnosis Chronic kidney disease, stage 2 (mild)- Primary Essential (primary) hypertension documented in this encounter Care Teams Manager Acute Relationship Specialty Start Date End Date Aakash Lundberg MD [address] [place] [id number] PCP - General Internal Medicine 04/09/21 documented as of this encounter
--- OUTSIDE RECORDS SUMMARY | 2024-05-24 14:01 | XMS_ITS | Clinical Summary ---
Author Organization [facility], Address [address] [place] [phone] Phone Care Team Providers Care Consumer Electronics Merchandiser Name Role Phone Aakash Lundberg MD Primary Care Provider +1- [phone] Allergies Active Allergy Reactions Criticality Noted Date Comments Statins Other (see comments) 06/29/2021 Tetracycline 06/29/2021 Tetracyclines & Related Rash Low 11/30/2016 Medications rosuvastatin (CRESTOR) 5 MG tablet Take 5 mg by mouth 2 (two) times a week 05/19/2021 Active levothyroxine (SYNTHROID, LEVOTHROID) 75 MCG tablet Take 75 mcg by mouth 1 (one) time each day 05/20/2021 Active levothyroxine (SYNTHROID, LEVOTHROID) 75 MCG tablet Take 1 tablet by mouth 1 (one) time each day 07/19/2016 Active flecainide (TAMBOCOR) 50 MG tablet Take 50 mg by mouth in the morning and 50 mg in the evening. 06/16/2021 Active D3-1000 25 MCG (1000 UT) capsule Take 1,000 Units by mouth 1 (one) time each day 05/19/2021 Active Calcium Citrate 250 MG tablet Take 2 tablets by mouth 2 (two) times a day 05/19/2021 Active Eliquis 5 MG tablet 06/26/2021 Active cholecalciferol (VITAMIN D-3) 10 MCG (400 UNIT) tablet Take 1 capsule by mouth 1 (one) time each day Active Calcium 500-125 MG-UNIT tablet Take 1 tablet by mouth 1 (one) time each day Active dilTIAZem CD (Cardizem CD) 180 MG 24 hr capsule Take 1 capsule (180 mg total) by mouth 1 (one) time each day 30 capsule 11 09/28/2021 Active chlorthalidone 25 MG tablet Take 1 tablet (25 mg total) by mouth 1 (one) time each day 90 tablet 3 03/14/2024 5 Active dilTIAZem HCl ER 240 MG tablet sustained-relea se 24 hour Take 1 tablet by mouth 1 (one) time each day 02/14/2024 Active Active Problems Problem Noted Date Diagnosed Date Chronic kidney disease, stage 2 (mild) 4 Essential (primary) hypertension 07/07/2022 Systolic murmur 06/29/2021 Pure hypercholesterolemia 06/29/2021 Paroxysmal atrial fibrillation 06/29/2021 Ophthalmic migraine 06/29/2021 Hyperlipidemia 06/29/2021 Chronic obstructive pulmonary disease 06/29/2021 Chronic kidney disease stage 3 06/29/2021 Stage 3a chronic kidney disease 06/29/2021 Renal osteodystrophy 06/29/2021 Chronic renal disease 01/08/2014 Encounters Date Type Department Care Team Description 05/10/2024 Documentation Only [facility], [address] [place] [address] Estee Schafer 05/02/2024 1:30 PM EST Office [facility] [address] [place] [phone] Uvaldo Vivar MD Chronic kidney disease, stage 2 (mild) (Primary Dx); Essential (primary) hypertension 03/14/2024 [facility] [address] [place] [phone] Uvaldo Vivar MD from Last 3 Months Immunizations Name Administration Dates Next Due Influenza Split High Dose Preservative Free IM 0 11/30/2016 Family History Medical History Relation Comments Stroke Father 2 Relation Status Comments Father 1 Father 2 Mother Social History Tobacco Use Types Packs/Day Years [...] on file Sexual Orientation Not on file Last Filed Vital Signs Vital Sign Reading Time Taken Comments Blood Pressure 145/65 09/28/2021 2:45 PM EDT Pulse 80 09/28/2021 2:45 PM EDT Temperature - - Respiratory Rate - - Oxygen Saturation 96% 09/28/2021 2:45 PM EDT Inhaled Oxygen Concentration - - Weight 80.4 kg (177 lb 3.2 oz) 09/28/2021 2:45 P M EDT Height 160 cm (5' 3 ) 08/22/2017 12:00 PM EDT Body Mass Index 31.39 08/22/2017 12:00 PM EDT Plan of Treatment Upcoming Encounters Date Type Department Care Team (Late st Contact Info) Description 05/06/2025 1:30 PM EST Office Visit [facility], - [address] [place] [address] Uvaldo Vivar MD [address] [place] [address] Health Maintenance Due Date Last Done Comments Pneumococcal Vaccine: 65+ Years (1 of 2 - PCV) 1951 Influenza Vaccine (#1) 2023 7, 03/17/2005, 04/24/2001 Colorectal Cancer Screening: Sigmoidoscopy Discontinued 03/11/2000 Hepatitis B Vaccine Aged Out No longe r eligible based on patient's age to complete this topic Insurance MEDICARE [facility] Care Teams Consumer Electronics Merchandiser Relationship Specialty Start Date End Date Aakash Lundberg MD [place] [address] PCP - General Internal Medicine 04/09/21
--- OUTSIDE RECORDS SUMMARY | 2024-05-24 14:02 | XMS_ITS | Encounter Summary ---
Author Organization [facility] [place], Address [address] [place] [address] Phone Care Team Providers Care Bunch Maker Name Role Phone Aakash Lundberg MD Primary Care Provider +1- [phone] Encounter Details Date Type Department Care Team (Late Contact Info) Description 05/10/2024 Documentation Only [facility] [address] [place] [address] Estee Schafer [address] [place] [phone] Social History Tobacco Use Types Packs/Day Years [...] Visit [facility] - [address] [place] [phone] Uvaldo Vivar MD [address] [place] [address] [place] [address] documented as of this encounter Visit Diagnoses Not on filedocumented in this encounter Care Teams Bunch Maker Relationship Specialty Start Date End Date Aakash Lundberg MD [address] [facility] [place] [address] PCP - General Internal Medicine 04/09/21 documented as of this encounter
== END 2024-05-24 10:56 | disposition home or self-care (01) ==
PROVIDERS: PCP Internal Medicine; Visit Provider Surgery
DX: C21.0 Malignant neoplasm of anus, unspecified (principal)
CPT/HCPCS: 99213

== ENCOUNTER → 2024-05-24 10:28 | Outpatient (BNVA) | payer MEDICARE, BC, SELFPAY | PROVIDERS: PCP Internal Medicine; Visit Provider Surgery | DX: E78.5 Hyperlipidemia, unspecified (principal); I12.9 Hypertensive chronic kidney disease with stage 1 through stage 4 chronic kidney disease, or unspecified chronic kidney disease; N18.30 Chronic kidney disease, stage 3 unspecified; E03.9 Hypothyroidism, unspecified; J44.9 Chronic obstructive pulmonary disease, unspecified; C21.0 Malignant neoplasm of anus, unspecified; I48.0 Paroxysmal atrial fibrillation; M81.0 Age-related osteoporosis without current pathological fracture; Z71.2 Person consulting for explanation of examination or test findings | CPT/HCPCS: 96127; 99212; 99495 ==

== ENCOUNTER 2024-05-24 13:48 | Outpatient (AMB) | payer MEDICARE, BC, SELFPAY ==
[2024-05-24 14:08] VITALS: BP 122/64; PULSE 88; RESP 16; TEMP 36.4; O2SAT 94; BMI 28.2
--- NOTE | 2024-05-24 14:08 | A.OFFPC_ITS ---
Vital Signs 05/24/24 14:08 Height 5 ft 1 in Weight 149 lb BMI 28.2 BP 122/64 Blood Pressure Location Lt brachial Position Sitting Respiration 16 Pulse 88 Pulse Source Pulse Oximeter Temp 97.6 F Temp Source Oral Pulse Oximetry (%) 94 Oxygen Delivery Method Room Air Intake Visit Reasons: TCM Intake Note: Pt is here today for a f/u C ER TCM Allergies tetracycline [TETRACYCLINE] Allergy (Unknown, Verified 05/24/24 14:30) ITCHINESS, rash nitrofurantoin Allergy (Verified 05/24/24 14:30) Swelling atorvastatin [Lipitor] Adverse Reaction (Unknown, Verified 05/24/24 14:30) Muscle pain bactrim Allergy (Unknown, Uncoded 05/24/24 14:30) Elevated LFTs/Itching/Nausea fentanyl Adverse Reaction (Severe, Uncoded 05/24/24 14:30) Unconscious Medication List - Last Reconciled 05/24/24 by Kala Lundberg MD albuterol sulfate 90 mcg/actuation 2 puffs inhalation Q6H PRN apixaban (Eliquis) 5 mg PO BID diltiazem HCl CD 240 mg PO DAILY flecainide 75 mg PO BID hydrocortisone 2.5% (Proctosol HC) 1 appl [place] BID-QID PRN levothyroxine 75 mcg PO DAILY mesalamine (Lialda) 4.8 grams (4 x 1.2 gram) PO DAILY 30 days omeprazole 20 mg PO BID@0630,1630 pramoxine 1% (Proctofoam) 1 appl [place] BID PRN rosuvastatin 5 mg PO TUTH Tobacco use date assessed: 05/24/24 Fall risk assessment: 1 Fall in past year Last assessed Fall Risk: 05/24/24 Dental Screening Dental Screen Date: 05/24/24 Did you have a dental visit in the last 12 months?: No Did you have a dental problem in the last 6 months where you did not have access to dental care?: No Was dental information given to patient?: No (dentures) HPI TCM HPI Details 78yo F with paroxysmal atrial fibrillati on on apixaban and flecainide, CKD3, HLD, hypothyroidism, and COPD who presents today for a TCM. She initially presented to the ER complaining of rectal bleeding which has been persistent ev er since her colonoscopy 6 months ago. She complains of anorexia and unintentional weight loss of the last 10 months. She notes that her stool has become thinner and smaller as well. Some mild lower abdominal discomfort. No fever, chills, nausea, or vomiting. Colonoscopy was actually done 03/11/[address] Reyes; 2 small-medium polyps were removed, random biopsies were taken from the R and L colon, and there was moderate-severe diverticulosis in the L colon. Pathology showed Mildly active colitis in right colon, chronic inactive colitis in left Colon, Hyperplastic mucosal sigmoid polyp, and lymphoid aggregate and mild surface hyperplastic on biopsy of rectum She underwent EGD and colonoscopy on 05/10/[address] Chung, which showed Schatzki ring and gastritis. Repeat colonoscopy was done which showed presence of colitis, possibly Crohn's and an anal lesion lesion which was biopsied and showed Anal squamous cell carcinoma. In regards to her diverticulitis, the patient was treated with 5 more days of oral cefuroxime and metronidazole, which she has already completed. For her colitis, mesalamine 1 g q.i.d. plus Proctofoam [place] was ordered. For her gastritis, she placed on omeprazole 20 mg 1 capsule twice a day. For her hypertension she was continued on diltiazem and her chlorthalidone was held. For her AFib she was continued on flecainide and Cardizem. Her apixaban was held and can be restarted on 05/14/2024. She has an appointment with Dr. Ray earlier today and discussed results of biopsy, referral was made for her to see hematology oncology to discuss treatment options for her cancer. At present patient states that she has been feeling better, no complaints of abdominal pain, occasional bright red blood seen in stool but has very poor appetite. Patient called to schedule an appointment with a salt machine operator at the hospital and was told that she needs a referral, which was ordered today [facility] Medical History (Updated 05/24/24 @ 16:00 by Kala Lundberg MD) History of diverticulitis Anal squamous cell carcinoma Hemorrhoids Current use of extermination supervisor anticoagulation External hemorrhoids Hyperuricemia Vitamin D deficiency Impaired fasting glucose Inflammatory arthritis Multinodular thyroid Mixed stress and urge urinary incontinence Dyslipidemia Paroxysmal atrial fibrillation Chronic kidney disease, stage 3 Osteoporosis COPD (chronic obstructive pulmonary disease) Acquired hypothyroidism Surgical History Hx of colonoscopy S/P partial hysterectomy History of section Family History Father CVA (cerebral vascular accident) AAA (abdominal aortic aneurysm) Mother Diabetes mellitus HTN (hypertension) Sister Diabetes mellitus Son Substance use disorder Son Substance use disorder Social History Household Members: Children Housing: Other Housing Other:: [employer]lex Do you presently have visiting nurse or other home services: No Alcohol intake: current Alcohol intake frequency: does not drink Comment: steady on feet in room Patient Tobacco Use Status: Former Tobacco user Years Smoked: 20 years e-Cigarette/Vaping Use: Never Used Second Hand Smoke Exposure: No Advance Directives Date on File: 05/30/20 service: No Current occupational status: retired Cognitive needs: No Hearing needs: No Vision needs: Yes Questionnaire PHQ-9 Over the last 2 weeks, how often have you been bothered by any of the following problems? 1. Little interest or pleasure in doing things: not at all 2. Feeling down, depressed, or hopeless: not at all 3. Trouble falling or staying asleep, or sleeping too much: several days 4. Feeling tired or having little energy: more than half the days 5. Poor appetite or overeating: more than half the days 6. Feeling bad about yourself - or that you are a failure or have let yourself or your family down: not at all 7. Trouble concentrating on things, such as reading the newspaper or watching television: not at all 8. Moving or speaking so slowly that other people could have noticed. Or the opposite - being so fidgety or restless that you have been moving around a lot more than usual: not at all 9. Thoughts that you would be better off or of hurting yourself in some way: not at all Total score: 5 Depression Screening Interpretation: Negative Depression Screening Done: Yes 06902 - PHQ-9 Billing: Yes Source: Developed by Drs. Orlando Forbes, Leah Yepez, Samuel Pelayo and colleagues, with an educational cuba from [employer]. Thrive Questionnaire Date Thrive assessed: 05/08/24 I am a: Patient What is your living situation today?: I have a steady place to live Within the past 12 months, did the food you bought not last and you didn't have the money to get more?: Never true Within the past 12 months, did you worry whether your food would run out before you got money to buy more?: Never true Do you have trouble paying for medicines?: Yes Do you have trouble getting transportation to medical appointments?: No Do you have trouble paying your heating and electricity bill?: No Do you have trouble taking care of your child, family member or friend?: No Do you have trouble with day-to-day activities such as bathing, preparing meals, shopping, managing finances, etc.?: No Are you currently unemployed and looking for a job?: No Are you interested in more education?: No Please select the resources that you would like help with: None Currently or been in a relationship where the following occur: No concerns reported THRIVE Score: 0 AUDIT C Alcohol Use Questionnaire (AUDIT-C) 1. How often do you have a drink containing alcohol?: Never Total Score: 0 CATIA-7 AMB Questionnaire CATIA-7 Date CATIA - 7 assessed: 09/08/23 Feeling nervous, anxious, or on edge: 0 = Not at all Not being able to stop or control worryin = Not at all Worrying too much about different things: 0 = Not at all Trouble relaxin = Not at all Being so restless that it is hard to sit still: 0 = Not at all Becoming easily annoyed or irritable: 0 = Not at all Feeling afraid as if something awful might happen: 0 = Not at all Total CATIA-7 score (0-4 normal; 5-9 mild; 10-14 moderate; 15-21 severe): 0 Source: Developed by Drs. Orlando Forbes, Leah Yepez, Samuel Pelayo and colleagues, with an educational cuba from [employer]. CATIA-7 Assessment Billing CATIA-7 Assessment Tool: CATIA-7 Assessment 10093 Review of Systems Const Denies chills, Denies fever(s) and Denies weakness Eyes Reports no additional complaints ENT Reports no additional complaints, Denies dizziness and Denies disequilibrium Card Denies chest pain, Denies dyspnea and Denies dyspnea on exertion Resp Denies cough, Denies dyspnea and Denies dyspnea on exertion GI Reports as per HPI Denies hematuria Musc Denies abnormal gait, Denies back pain and Denies limited range of motion Skin/Breast Denies lesions and Denies rash Neuro Denies abnormal gait, Denies dizziness, Denies focal weakness, Denies convulsions, Denies Sensory deficit (Neuro), Denies disequilibrium and Denies weakness Psych Denies depression and Denies mood swings Endo Reports no additional complaints Chester/Lymph Reports no additional complaints Aller/Immun Reports no additional complaints Physical exam (Primary Care) Vital Signs: Last Vital Signs Temp 97.6 F 05/24/24 14:08 Pulse 88 05/24/24 14:08 Resp 16 05/24/24 14:08 BP 122/64 05/24/24 14:08 Pulse Ox 94 05/24/24 14:08 Oxygen Delivery Method Room Air 05/24/24 14:08 BMI result Body Mass Index 28.2 Tobacco/Smoking Status: Tobacco use Status Tobacco use date assessed 05/24/24 05/24/24 14:12 Patient Tobacco Use Status Former Tobacco user 05/24/24 14:12 e-Cigarette/Vaping Use Never Used 05/24/24 14:12 PHQ-9: PHQ-9 Score PHQ-9: Total score 5 05/24/24 14:49 Depression Screening Interpretation: Negative Thrive Assessment: Date of Thrive Assessment Date Thrive assessed 05/08/24 05/24/24 14:12 Currently or been in a relationship where the following occur: No concerns reported Const General: no acute distress and alert Orientation/consciousness: patient oriented x3 HENMT Head: Yes normal to inspection and Yes normocephalic Ears: external ears normal General nose exam: Normal external nose present Face and sinus: Yes face symmetric Mouth: Normal oral and palatal mucosa present, oropharynx normal and moist mucous membranes Eyes Conjunctivae: conjunctivae normal Sclerae: sclerae normal Pupils: Equal, round and reactive pupils present EOM: EOMs intact bilaterally Neck Neck: Yes no lymphadenopathy Resp Effort & Inspection: normal respiratory effort and able to speak in complete sentences Auscultation: clear to auscultation bilaterally Cardio Rhythm: abnormal rhythm irregularly irregular GI Inspection: Yes normal to inspection Palpation (GI): Soft to palpation, nontender, no guarding and no masses Auscultation: normal bowel sounds General: Yes no CVA tenderness Back/Spine/Pelvis Back: no CVA tenderness Skin General skin exam: no rashes or lesions noted Neuro General: patient oriented x3, gait normal, no focal motor deficits and CN's II- XI intact bilaterally Cranial nerves: Yes Equal, round and reactive pupils present Cognition (Neuro): normal cognition Gait exam (Neuro): Normal gait present Sensory Exam: No Sensory deficit (Neuro) Extrem General: Yes normal to inspection, Yes no pedal edema and Yes normal gait Psych Appearance: grossly normal and well kempt Mental Status: mental status grossly normal Speech and movement: Normal speech and movement present Affect: normal affect Attitude: cooperative Thought process: Normal thought process present Thought content: Normal thought content present Coding Level of Care Code TCM High MDM <= 14 days Diagnoses Anal squamous cell carcinoma C21.0 Paroxysmal atrial fibrillation I48.0 Age-related osteoporosis without current pathological fracture M81.0 Osteoporosis type: age-related Presence of current pathological fracture: without current pathological fracture Acquired hypothyroidism E03.9 Dyslipidemia E78.5 Chronic kidney disease, stage 3 N18.30 Additional Codes PHQ-9 - 23810 - PHQ-9 Billing: Yes ([id number]) CATIA-7 Assessment Billing - CATIA-7 Assessment Tool: CATIA-7 Assessment 12175 ([id number]) Assessment & Plan Assessment & Plan (1) Anal squamous cell carcinoma: Code(s): C21.0 - Malignant neoplasm of anus, unspecified Category: Medical Plan: She has been referred to Hematology Oncology by Dr. Ray for further evaluation and management (2) Paroxysmal atrial fibrillation: Comment: Followed by Dr. Mendoza Code(s): I48.0 - Paroxysmal atrial fibrillation Category: Medical Plan: Currently on flecainide, continued on apixaban 5 mg 1 tablet twice a day and diltiazem 240 mg daily (3) Osteoporosis: Code(s): M81.0 - Age-related osteoporosis without current pathological fracture Category: Medical Qualifiers: Osteoporosis type: age-related Presence of current pathological fracture: without current pathological fracture Qualified Code(s): M81.0 - Age- related osteoporosis without current pathological fracture Plan: Has been seen and evaluate by endocrine clinic and was offered Prolia , but patient declined treatment (4) Acquired hypothyroidism: Code(s): E03.9 - Hypothyroidism, unspecified Category: Medical Plan: Continue levothyroxine (5) Dyslipidemia: Code(s): E78.5 - Hyperlipidemia, unspecified Category: Medical Plan: Currently on levothyroxine 75 mcg taken once a day. Referred to salt machine operator for further guidance (6) Chronic kidney disease, stage 3: Code(s): N18.30 - Chronic kidney disease, stage 3 unspecified Category: Medical Plan: Currently followed by Nephrology Orders: Referrals Nutrition/Dietitian Referral C21.0 - Malignant neoplasm of anus, unspecified, E79.0 - Hyperuricemia without signs of inflammatory arthritis and tophaceous disease, N18.30 - Chronic kidney disease, stage 3 unspecified, R73.01 - Impaired fasting glucose
--- OUTSIDE RECORDS SUMMARY | 2024-05-24 17:40 | XMS_ITS | Clinical Summary ---
Author Organization [facility], Address [address] [place] [phone] Phone Care Team Providers Care Sustainable Systems Analyst Name Role Phone Aakash Lundberg MD Primary Care Provider +1- [phone] Allergies Active Allergy Reactions Criticality Noted Date [...] Only [facility], [address] [place] [address] Estee Schafer 05/02/2024 1:30 PM EST Office Visit [facility] [address]al [address] [place] [phone] Uvaldo Vivar MD Chronic kidney disease, stage 2 (mild) (Primary Dx); Essential (primary) hypertension 03/14/2024 [facility] [address] [place] [phone] Uvaldo Vivar MD from Last 3 Months [...] Visit [facility], - Karis [address] [place] [address] Uvaldo Vivar MD [address] [place] [address] Health Maintenance Due Date Last Done Comments Pneumococcal Vaccine: 65+ Years (1 of 2 - PCV) 1951 Influenza Vaccine (#1) 2023 7, 03/17/2005, 04/24/2001 Colorectal Cancer Screening: Sigmoidoscopy Discontinued 03/11/2000 Hepatitis B Vaccine Aged Out No longe r eligible based on patient's age to complete this topic Insurance [facility]IC[facility] Care Teams Sustainable Systems Analyst Relationship Specialty Start Date End Date Aakash Lundberg MD [facility] [place] [address] PCP - General Internal Medicine 04/09/21
--- OUTSIDE RECORDS SUMMARY | 2024-05-24 17:40 | XMS_ITS | Encounter Summary ---
Author Organization [facility], Address [address] [place] [address] Phone Care Team Providers Care Operational Intelligence Analyst Name Role Phone Aakash Lundberg MD Primary Care Provider [phone]- [phone] Encounter Details Date Type Department Care Team (Late Contact Info) Description 05/10/2024 Documentation Only [facility] [address] [place] [address] Estee Schafer [address] [place] [phone] Social History Tobacco Use Types Packs/Day [...] Visit [facility] - [address] Opal [address] [address] [place] [phone] Uvaldo Vivar MD [address] [place] [address] [place] [address] documented as of this encounter Visit Diagnoses Not on filedocumented in this encounter Care Teams Operational Intelligence Analyst Relationship Specialty Start Date End Date Aakash Lundberg MD [address] [facility] [place] [id number] PCP - General Internal Medicine 04/09/21 documented as of this encounter
--- OUTSIDE RECORDS SUMMARY | 2024-05-24 17:40 | XMS_ITS | Encounter Summary ---
Author Organization [facility], Address [address] [place] [address] Phone Care Team Providers Care Pcmh Specialist Name Role Phone Aakash Lundberg MD Primary Care Provider +1- [phone] Encounter Details Date Type Department Care Team (Late st Contact Info) Description 05/02/2024 1:30 PM EST Office Visit [facility] [address] [phone] Uvaldo Vivar MD [address] [place] [address] [place] [address] Chronic kidney disease, stage 2 (mild) (Primary [...] Visit [facility], [facility] - [address] [place] [address] Uvaldo Vivar MD [address] [place] [phone] Scheduled Orders Name Type Priority Associated Diagnoses [...] hypertension documented in this encounter Care Teams Pcmh Specialist Relationship Specialty Start Date End Date Aakash Lundberg MD [address] [place] [address] PCP - General Internal Medicine 04/09/21 documented as of this encounter
--- OUTSIDE RECORDS SUMMARY | 2024-05-24 17:40 | XMS_ITS | Encounter Summary ---
Author Organization [facility] Address [address] [facility] [address] [place] [address] Phone Care Team Providers Care Line Construction Engineer Name Role Phone Aakash Lundberg MD Primary Care Provider +1- [phone] Reason for Visit * Reason Comments Med Refill Encounter Details Date Type Department Care Team (Late Contact Info) Description 10/04/2022 Refill [facility] [address] [place] [address] Gustavo Pina MD [address] [facility] [address] [place] [phone] Social History Tobacco Use Types Packs/Day Years [...] Visit [facility] [address] [place] [address] Uvaldo Vivar MD [address] [facility] [address] [place] [phone] documented as of this encounter Visit Diagnoses Not on filedocumented in this encounter Care Teams Line Construction Engineer Relationship Specialty Start Date End Date Aakash Lundberg MD [facility] [place] [address] PCP - General Internal Medicine 04/09/21 documented as of this encounter
--- OUTSIDE RECORDS SUMMARY | 2024-05-24 17:40 | XMS_ITS | Encounter Summary ---
Author Organization [facility] [place], Address [address] [place] [address] Phone Care Team Providers Care Vendor Management Specialist Name Role Phone Aakash Lundberg MD Primary Care Provider +1- [phone] Encounter Details Date Type Department Care Team (Late Contact Info) Description 07/16/2022 Documentation Only [facility] [address] [place] [address] Uvaldo Vivar MD [address] [place] [address] [place] [phone] Social History Tobacco Use Types Packs/Day Years [...] Visit [facility] [address] [place] [phone] Uvaldo Vivar MD [address] [place] [address] [address] [address] documented as of this encounter Visit Diagnoses Not on filedocumented in this encounter Care Teams Vendor Management Specialist Relationship Specialty Start Date End Date Aakash Lundberg MD [address] [place] [address] PCP - General Internal Medicine 04/09/21 documented as of this encounter
== END 2024-05-24 15:04 | disposition home or self-care (01) ==
PROVIDERS: PCP Internal Medicine; Visit Provider Internal Medicine
DX: I48.0 Paroxysmal atrial fibrillation (principal); C21.0 Malignant neoplasm of anus, unspecified; N18.30 Chronic kidney disease, stage 3 unspecified; M81.0 Age-related osteoporosis without current pathological fracture; E03.9 Hypothyroidism, unspecified; E78.5 Hyperlipidemia, unspecified

== ENCOUNTER → 2024-06-06 08:44 | Outpatient (BNV) | payer MEDICARE, BC, SELFPAY | PROVIDERS: PCP Internal Medicine; Referring Provider Surgery; Visit Provider Internal Medicine | DX: C21.0 Malignant neoplasm of anus, unspecified (principal) | CPT/HCPCS: 99205; G2211 ==

== ENCOUNTER 2024-06-12 08:55 | Outpatient (AMB) | payer MEDICARE, BC, SELFPAY ==
[2024-06-12 02:00] VITALS: BMI 27.6
--- NOTE | 2024-06-12 09:00 | A.OFFVIS_ITS ---
VS Expanded 06/12/24 02:00 06/19/24 20:03 Height 5 ft 1 in 5 ft 1 in Weight 146 lb 2.5 oz 146 lb BMI 27.6 27.6 Intake Visit Reasons: Weight loss, poor appetite Allergies tetracycline [TETRACYCLINE] Allergy (Unknown, Verified 05/24/24 14:30) ITCHINESS, rash nitrofurantoin Allergy (Verified 05/24/24 14:30) Swelling atorvastatin [Lipitor] Adverse Reaction (Unknown, Verified 05/24/24 14:30) Muscle pain bactrim Allergy (Unknown, Uncoded 05/24/24 14:30) Elevated LFTs/Itching/Nausea fentanyl Adverse Reaction (Severe, Uncoded 05/24/24 14:30) Unconscious Nutrition Presentation Details: Pt presents for MNT related to poor appetite Pt reports living with son , both take turn in meal preparation Recently diagnosed with anal squamous cell CA, to be started on possible chemotherapy, has very poor appetite, losing weight 7:30 B: Indonesian muffin with peanut milk with coffee L:soup with chicken D: sandwich (tuna or ham/cheese), tea or potato or rice with beef stew 1 snack/d cookie denies constipation/diarrhea/vomiting BS Monitoring Most Recent Diabetes Results: Creatinine 0.84 mg/dL (0.5-1.4) 05/08/24 Blood Urea Nitrogen 10 mg/dL (9-16) 05/08/24 Sodium 132 mmol/L (135-145) L 05/08/24 Potassium 3.3 mmol/L (3.3-5.1) 05/08/24 Chloride 99 mmol/L (96-108) 05/08/24 Carbon Dioxide 26 mmol/L (22-29) 05/08/24 Calcium 8.8 mg/dL (8.4-10.2) 05/08/24 AST 20 U/L (5-31) 05/07/24 ALT 10 U/L (0-31) 05/07/24 Total Protein 7.4 g/dL (6.5-8.0) 05/07/24 Albumin 3.4 g/dL (3.5-5.0) L 05/07/24 ZMB-Uktdkud-Dg.Jeor Equation Height: 5 ft 1 in Weight: 146 lb Resting Metabolic Rate: 1080.28 Calculated Activity Level: Mild Activity Calories Needed to Maintain Weight: 1485.39 Diagnosis Nutrition problem #1: unintended weight loss As related to (etiology) #1: decreased appetite As evidenced by (sign/symptom) #1: food recall (wt loss from 149 (05/24/24) to 146 (06/12/24) ) [facility] Medical History (Updated 06/19/24 @ 20:03 by Rica Lin, RD, LDN) History of diverticulitis Anal squamous cell carcinoma Hemorrhoids Current use of chcf anticoagulation External hemorrhoids Hyperuricemia Vitamin D deficiency Impaired fasting glucose Inflammatory arthritis Multinodular thyroid Mixed stress and urge urinary incontinence Dyslipidemia Paroxysmal atrial fibrillation Chronic kidney disease, stage 3 Osteoporosis COPD (chronic obstructive pulmonary disease) Acquired hypothyroidism Surgical History (Updated 06/06/24 @ 09:14 by Dorys Cabrales MD) Hx of colonoscopy S/P partial hysterectomy History of section Family History (Updated 06/06/24 @ 09:04 by Zara Parkinson) Father AAA (abdominal aortic aneurysm) CVA (cerebral vascular accident) Mother Diabetes mellitus HTN (hypertension) Gallbladder cancer Sister Diabetes mellitus Son Substance use disorder Son Substance use disorder Social History (Updated 06/06/24 @ 09:05 by Zara Parkinson) Household Members: Children Housing: Other Housing Other:: Duplex Do you presently have visiting nurse or other home services: No Alcohol intake: current Alcohol intake frequency: does not drink Comment: steady on feet in room Patient Tobacco Use Status: Former Tobacco user Tobacco use type: Cigarette Years Smoked: 20 years e-Cigarette/Vaping Use: Never Used Second Hand Smoke Exposure: No Advance Directives Date on File: 05/30/20 service: No Current occupational status: retired Gender identity: Female Cognitive needs: No Hearing needs: No Vision needs: Yes Assessment & Plan Assessment & Plan (1) Impaired fasting glucose: Code(s): R73.01 - Impaired fasting glucose Category: Medical Plan: Wt: 66 Kg ( 06/19 ) Est kcal needs as per MSJ: 1500 (40% carb, 30% protein/fat) Est fluid needs as per 25-30 ml/d: 2000 Est prot per day as per 1 g/kg bw: 66 Recommend fiber intake : 8-10 g per day and gradually increase to 25-28 g per day for women and 35-38 g for men or as tolerated Recommend sodium intake per day : less than 2000 mg Educated patient on: ( R = reviewed V = verbalizes understanding N/R = needs review N/A = not applicable * Food sources of carbohydrate, adequate serving sizes and its role in various health conditions: R V N/R * Differences between complex carbohydrates a simple carbohydrates, role of fiber in diet: R V N/R * Lean protein sources of foods: R * Differences between types of fats and role in diet (mono on saturated fat fatty acids, saturated fatty acids, trans fats): R V N/R * Food sources of sodium in salt and healthy modifications for heart health in kidney health: R V R/V * Vitamins and minerals: R V N/R * Healthy plate method concept: R V N/R * Physical activity: Benefits a precaution: R V N/R * Hypoglycemia protocol (rule of 15): R V N/R * Dietary prevention of Hyperglycemia: R V R/V Patient Instructions: have a yogurt in between breakfast and lunch and cottage cheese with crackers or fruit as snack at bedtime after dinner keep hydrated by having juice diluted with water, milk, soup see list of protein sources of foods and snacks ideas Coding Level of Care Code Nutr Indiv Intake (45403) Diagnoses Impaired fasting glucose R73.01 Time Spent (min) 30
--- OUTSIDE RECORDS SUMMARY | 2024-06-12 09:24 | XMS_ITS | Encounter Summary ---
Author Organization [facility] Address [address] [facility] [address] [place] [address] Phone Care Team Providers Care Alarm Technician Name Role Phone Aakash Lundberg MD Primary Care Provider +1- [phone] Reason for Visit * Reason Comments Med Refill Encounter Details Date Type Department Care Team (Late Contact Info) Description 10/04/2022 Refill [facility] [address] [place] [address] Gustavo Pina MD [address] [facility] [address] [place] [phone] Social History Tobacco Use Types Packs/Day Years [...] Visit [facility] [address] [place] [address] Uvaldo Vivar MD [address] [facility] [address] [place] [phone] documented as of this encounter Visit Diagnoses Not on filedocumented in this encounter Care Teams Alarm Technician Relationship Specialty Start Date End Date Aakash Lundberg MD [facility] [place] [address] PCP - General Internal Medicine 04/09/21 documented as of this encounter
--- OUTSIDE RECORDS SUMMARY | 2024-06-12 09:24 | XMS_ITS | Encounter Summary ---
Author Organization [facility] [place], Address [address] [place] [address] Phone Care Team Providers Care Telecommunications Network Engineer Name Role Phone Aakash Lundberg MD Primary Care Provider +1- [phone] Encounter Details Date Type Department Care Team (Late Contact Info) Description 07/16/2022 Documentation Only [facility] [address] [place] [address] Uvaldo Vivar MD [address] [place] [address] [place] [phone] Social History Tobacco Use Types Packs/Day Years [...] Visit [facility] [address] [place] [phone] Uvaldo Vivar MD [address] [place] [address] Dr. [address]ath [place] [address] documented as of this encounter Visit Diagnoses Not on filedocumented in this encounter Care Teams Telecommunications Network Engineer Relationship Specialty Start Date End Date Aakash Lundberg MD [address] [place] [address] PCP - General Internal Medicine 04/09/21 documented as of this encounter
--- OUTSIDE RECORDS SUMMARY | 2024-06-12 09:24 | XMS_ITS | Encounter Summary ---
Author Organization [facility] [place], Address [address] [place] [address] Phone Care Team Providers Care Pathology Manager Name Role Phone Aakash Lundberg MD Primary Care Provider +1- [phone] Encounter Details Date Type Department Care Team (Late Contact Info) Description 05/10/2024 Documentation Only [facility] [address] [place] [address] Estee Schafer [address] [place] [phone] Social History Tobacco Use Types Packs/Day [...] Visit [facility] [address] Opal [address] [place] [address] Uvaldo Vivar MD [address] [place] [address] [place] [address] documented as of this encounter Visit Diagnoses Not on filedocumented in this encounter Care Teams Pathology Manager Relationship Specialty Start Date End Date Aakash Lundberg MD [address] [facility] [place] [address] PCP - General Internal Medicine 04/09/21 documented as of this encounter
--- OUTSIDE RECORDS SUMMARY | 2024-06-12 09:24 | XMS_ITS | Clinical Summary ---
Author Organization [facility], Address [address] [place] [address] Phone Care Team Providers Care Software Firmware Engineer Name Role Phone Aakash Lundberg MD Primary Care Provider +1- [phone] Allergies Active Allergy Reactions Criticality Noted Date [...] Only [facility] [place], [address] [place] [address] Estee Schafer 05/02/2024 1:30 PM EST Office Visit [facility] [place] [facility] [address]al [address] [place] [address] Uvaldo Vivar MD Chronic kidney disease, stage 2 (mild) (Primary Dx); Essential (primary) hypertension 03/14/2024 Refill [facility] [place] [phone] Uvaldo Vivar MD from Last 3 Months [...] Visit [facility] [place], - [address] [place] [address] Uvaldo Vivar MD [address] [place] [address] Health Maintenance Due Date Last Done Comments Pneumococcal Vaccine: 65+ Years (1 of 2 - PCV) 1951 Influenza Vaccine (#1) 2023 7, 03/17/2005, 04/24/2001 Colorectal Cancer Screening: Sigmoidoscopy Discontinued 03/11/2000 Hepatitis B Vaccine Aged Out No longe r eligible based on patient's age to complete this topic Insurance MEDICARE [facility] MEDICARE Care Teams Software Firmware Engineer Relationship Specialty Start Date End Date Aakash Lundberg MD [employer] [place] [address] PCP - General Internal Medicine 04/09/21
--- OUTSIDE RECORDS SUMMARY | 2024-06-12 09:24 | XMS_ITS | Data Portability ---
Author Organization [facility], , [facility] Address [address] [place] [address] Assessment Encounter Date Assessment Date Assessment LastModified by Organization Details LastModified Time 03/26/2010 03/26/2010 Digital bilatera l screening mammogram ? ? ? Comparison: 11/24/2006 ? ? ? No new suspicious dominant masses.? ? ? Intramammary nodes/nodular densities bilaterally, stable.? ? ? Benign appearing secretory calcifications inferiorly on the left have increased but there are no suspicious clusters of microcalcificatio n.? ? ? Exam reviewed with CAD. Conclusion: No mammographic evidence of malignancy.? ? ? Follow-up recommended in one year. BI-RADS 2, [...] By Organization Details Last Modified Time 01/14/2015 [id number] cataracts-monito r . Rx change-new spectacle Rx given. RTC 1 year comp exam-cataracts. Patient wishes to have her epiphora addressed [email or web address] Not available 01/17/2015 15:45:52 01/20/2016 [id number] RTC 6 months for CEE or sooner prn [email or web address] Not available 01/20/2016 10:56:58 Reason for Referral None Reported. Results Created Date Observation Date Name Description Value Unit Range Abnormal Flag Note LastModifiedBy Organization Detail LastModifiedTime 04/06/20 10 03/26/2010 mammo gram, tashe yariel No observ ation record ed. [facility] (Imaging) [address], [place], [address], 11/17/2012 04:34:18 Result Notes None recorded. Problems Name Problem SNOMED Code Status Onset Date Resolution Date Notes Provider Name and Address Organization Details Recorded Time Nuclear senile cataract 804739768 Active Alphonse Buckley, OD [address] [place], [address] , [facility] 5 15:45:52 Regular astigmatis m 71338215 Active Alphonseanay Buckley, OD [address] [place], [address] , [facility] 5 15:45:52 Mixed hyperlipid emia 376340352 Active 2004 Randi combs, [facility] 5 15:37:26 Presbyopia 23579849 Active 2008 Alphonse Buckley, OD [address] [place], [address] , [facility] 5 15:45:52 Cortical senile cataract 29263315 Active 2005 Alphonse Buckley, OD [address] [place], [address] , [facility] 5 15:45:52 Astigmatis m 28777810 Active 2005 Not Available [facility] 3 03:07:04 Corneal ulcer 91305805 Active 2005 Not Available [facility] 3 03:07:04 Neck pain 48714357 Completed 200503/14/2013 Not Available [facility] 3 02:00:32 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 3 02:04:06 Keratoconj unctivitis 53941036 Active 2005 Not Available [facility] 3 03:07:04 Common cold 01860140 Completed 200403/14/2013 Not Available [facility] 3 02:00:24 On examinatio n - a rash Completed 200503/14/2013 Not Available [facility] 3 02:00:45 Dry eyes 867385639 Active 2005 Not Available [facility] 3 03:07:04 Osteoporos is 86471104 Active 2005 Not Available [facility] 3 03:07:04 Acute conjunctiv itis 70923167 Completed 200003/14/2013 Not Available [facility] 3 02:02:28 Malaise and fatigue 276064503 Completed 200403/14/2013 Not Available [facility] 3 02:00:14 Pain in eye 17820342 Completed 200603/14/2013 Not Available [facility] 3 02:03:50 Problem Notes None recorded. Procedures Surgical History Date Name Laterality Status Provider Name and Address Organization Details Recorded Time 01/14/2015 Refraction completed Petra Berman MA [facility] 01/14/2015 11:08:17 Imaging Results Imaging Date Name Status LastModified by Organiz ation Details LastModified Time 03/26/2010 mammogram, screening completed [facility] (Imaging) [address], [place], [address], 11/17/2012 04:34:18 Procedure Notes None recorded. Medical Equipment None Reported. Allergies Allergen ID Allergen Name Allergen Category Reaction Reaction Severity Criticality Documentation Date Start Date Code Code System Note Provider Name and Address Organization Details Recorded Time 806313 tetracycl ine medicatio n itching Not available Not available 01/14/2015 83207 RxNorm Petra Berman MA [facility] 5 11:08:12 Medications Name Sig Start Date [...] Available Not Available Not Available Fluzone High-Dose 8039-7880 (PF) 180 mcg/0.5 mL intramuscul ar syringe [...] influenza, unspecified formulation 1 completed Not Available [facility] 03/10/2011 05:20:34 influenza, unspecified formulation 5 completed Not Available [facility] 03/10/2011 05:21:29 Past Encounters Encounter ID Performer Location Encounter Start Date Encounter Closed Date Diagnosis/Indication Diagnosis SNOMED-CT Code Diagnosis ICD10 Code Diagnosis Note [id number] , [facility], OFFICE [address] [place] [address] 03/11/2000 09:00:00 05/15/2008 02:02:29 [id number] , [facility], OFFICE [address] [place] [address] 03/08/2001 15:30:00 05/15/2008 02:02:29 [id number] [facility], OFFICE [address] [place] [address] 04/24/2001 10:45:00 05/15/2008 02:02:29 [id number] [facility], OFFICE [address] [place] [address] 09/07/2004 13:09:20 09/09/2004 17:51:07 [id number] Radiology , [facility] [address] [place] [address] 09/11/2004 11:42:55 09/14/2004 08:33:53 [id number] LAB - [address] [address] 09/11/2004 07:49:06 09/11/2004 07:49:10 [id number] [facility], OFFICE [address] [place] [address] 03/17/2005 14:44:07 03/24/2005 13:17:18 [id number] Radiology , [facility] [address] [place] [address] 09/13/2005 13:13:44 09/14/2005 08:31:37 [id number] LAB - [address] [address] 09/13/2005 14:32:54 09/13/2005 14:33:04 [id number] [facility], OFFICE [address] [place] [address] 09/13/2005 13:38:37 09/14/2005 15:50:43 [id number] Eye Care, [facility] [address] [place] [address] 09/27/2005 10:10:47 05/15/2008 02:02:29 [id number] Optical, [facility] [place] Lisa-146 6 09/27/2005 12:37:27 09/27/2005 12:37:57 [id number] Radiology , [facility] [place] Lisa-146 6 09/27/2005 09:37:09 05/15/2008 02:02:29 [id number] Eye Care, [facility] [place] Osei-146 6 10/04/2005 14:40:45 05/15/2008 02:02:29 [id number] LAB - [facility] [place] Osei-146 6 12/20/2005 09:04:10 12/20/2005 09:04:34 [id number] Eye Care, [facility] R[place] Osei62-146 6 03/31/2006 17:18:53 04/01/2006 09:58:16 [id number] Eye Care, [facility] R[place] Osei-146 6 07/18/2006 11:42:47 07/18/2006 16:44:48 [id number] Eye Care, [facility] R[place] Welch-146 6 07/19/2006 11:40:18 07/19/2006 15:22:27 [id number] Eye Care, [facility] R[place] [id number] 6 07/21/2006 09:36:13 07/21/2006 15:44:48 [id number] Eye Care, [facility] R[place] [id number] 6 07/22/2006 09:40:07 07/22/2006 15:00:51 [id number] Eye Care, [facility] R[place] [id number] 6 07/28/2006 09:45:06 07/28/2006 17:06:46 [id number] Radiology , [facility] R[place] [id number] 6 11/24/2006 08:36:18 11/25/2006 09:18:40 [id number] Radiology , [facility] R[place] [id number] 6 11/24/2006 00:00:00 05/15/2008 02:02:29 [id number] Radiology , [address] [address] 11/27/2007 09:29:12 11/28/2007 09:22:50 [id number] Radiology , [address] [address] 11/27/2007 00:00:00 05/15/2008 02:02:29 [id number] Eye Care, [address] [address] 03/26/2008 15:52:05 03/28/2008 10:28:39 [id number] Optical, [address] [address] 02/04/2009 10:16:06 02/04/2009 16:31:36 [id number] Eye Care, [address] [address] 02/05/2009 13:53:21 02/05/2009 14:04:28 [id number] Radiology , [address] [address] 03/26/2010 15:28:08 03/30/2010 14:32:38 [id number] Alphonse Buckley, OD Eye Care, [address] [address] 01/14/2015 10:39:56 01/14/2015 12:04:17 Nuclear senile cataract 701386279 Cortical s enile cataract 51929462 Hypermetropia 84690945 Regular astigmatism 56866969 Presbyopia 71490730 Complainin g of - watering eyes 618361786 [id number] Laura Nick, OD Eye Care, [address] [address] 01/20/2016 10:13:22 01/20/2016 10:52:02 Nuclear senile cataract 695536451 H25.13 mild OU; pt ed limited views [...] Mc[employer]on Member ID Guarantor Name 02/04/2009 2 [place] [employer] [place] [employer] [address] [id number] Raquel Nicholas 02/05/2009 2 [place] [employer] [address] [id number] Raquel Nicholas 03/26/2010 2 [place] [employer] [address] [id number] Raquel Nicholas 01/14/2015 2 [place] 111 [address] Nicholas [id number] Raquel Nicholas 01/14/2015 1 [place] [facility] Raquel Nicholas [id number] Raquel Nicholas 01/20/2016 2 [place] 111 [address] Nicholas [id number] Raquel Nicholas 01/20/2016 1 [place] [facility] Raquel Nicholas [id number] Raquel Nicholas Notes Date Note Type Note Provider Name and Address Organization Details Recorded Time 01/20/2016 text/html CataractReported bypatient.Location:bi lateral Quality:painless Severity:mild Onset/Timing:gradual Laura Nick, [address], [place], [address], [facility] 01/20/2016 10:58:09 OBGyn Episode No OBEpisode recorded.
[2024-06-19 20:03] VITALS: BMI 27.6
== END 2024-06-12 11:44 | disposition home or self-care (01) ==
PROVIDERS: PCP Internal Medicine; Visit Provider Dietitian, Registered
DX: R73.01 Impaired fasting glucose (principal)

== ENCOUNTER → 2024-06-12 08:55 | Outpatient (BNVA) | payer MEDICARE, BC, SELFPAY | PROVIDERS: PCP Internal Medicine; Visit Provider Dietitian, Registered | DX: R73.01 Impaired fasting glucose (principal) | CPT/HCPCS: 97802 ==

== ENCOUNTER 2024-06-20 10:50 | Day surgery (SDC) | payer MEDICARE, BC, SELFPAY ==
--- OUTSIDE RECORDS SUMMARY | 2024-06-12 09:49 | XMS_ITS | Encounter Summary ---
Author Organization [facility] Address [address] [facility] [address] [place] [address] Phone Care Team Providers Care Liquified Natural Gas Technician Name Role Phone Aakash Lundberg MD Primary Care Provider +1- [phone] Reason for Visit * Reason Comments Med Refill Encounter Details Date Type Department Care Team (Late Contact Info) Description 10/04/2022 Refill [facility] [address] [place] [address] Gustavo Pina MD [address] [facility] [address] [place] [phone] Social History Tobacco Use Types Packs/Day Years [...] Visit [facility] [place] [address] Uvaldo Vivar MD [address] [facility] [address]ath [place] [phone] documented as of this encounter Visit Diagnoses Not on filedocumented in this encounter Care Teams Liquified Natural Gas Technician Relationship Specialty Start Date End Date Aakash Lundberg MD [facility] [place] [address] PCP - General Internal Medicine 04/09/21 documented as of this encounter
--- OUTSIDE RECORDS SUMMARY | 2024-06-12 09:49 | XMS_ITS | Encounter Summary ---
Author Organization [facility] [place], Address [address] [place] [address] Phone Care Team Providers Care Retail Clerk Name Role Phone Aakash Lundberg MD Primary Care Provider +1- [phone] Encounter Details Date Type Department Care Team (Late Contact Info) Description 05/10/2024 Documentation Only [facility] [address] [place] [address] Estee Schafer [address] [place] [address] Social History Tobacco Use Types Packs/Day [...] Visit [facility] [address] [place] [address] Uvaldo Vivar MD [address] [place] [address] [place] [address] documented as of this encounter Visit Diagnoses Not on filedocumented in this encounter Care Teams Retail Clerk Relationship Specialty Start Date End Date Aakash Lundberg MD [address] [facility] [place] [place] [address] PCP - General Internal Medicine 04/09/21 documented as of this encounter
--- OUTSIDE RECORDS SUMMARY | 2024-06-12 09:49 | XMS_ITS | Clinical Summary ---
Author Organization [facility], Address [address] [place] [phone] Phone Care Team Providers Care Service Cashier Name Role Phone Aakash Lundberg MD Primary Care Provider +1- [phone] Allergies Active Allergy Reactions Criticality Noted Date [...] Only [facility], [address] [place] [address] Estee Schafer 05/02/2024 1:30 PM EST Office Visit [facility] [address]al [address] [place] [phone] Uvaldo Vivar MD Chronic kidney disease, stage 2 (mild) (Primary Dx); Essential (primary) hypertension 03/14/2024 Refill [facility] [place] [phone] Uvaldo Vivar MD from Last 3 Months [...] Visit [facility], - Karis [address] [place] [address] Uvaldo Vivar MD [address] [place] [address] Health Maintenance Due Date Last Done Comments Pneumococcal Vaccine: 65+ Years (1 of 2 - PCV) 1951 Influenza Vaccine (#1) 2023 7, 03/17/2005, 04/24/2001 Colorectal Cancer Screening: Sigmoidoscopy Discontinued 03/11/2000 Hepatitis B Vaccine Aged Out No longe r eligible based on patient's age to complete this topic Insurance MEDICARE [facility] Care Teams Service Cashier Relationship Specialty Start Date End Date Aakash Lundberg MD [facility] [place] [address] PCP - General Internal Medicine 04/09/21
--- OUTSIDE RECORDS SUMMARY | 2024-06-12 09:49 | XMS_ITS | Encounter Summary ---
Author Organization [facility], Address [address] [place] [address] Phone Care Team Providers Care Mortgage Loan Underwriter Name Role Phone Aakash Lundberg MD Primary Care Provider +1- [phone] Encounter Details Date Type Department Care Team (Late Contact Info) Description 07/16/2022 Documentation Only [facility] [address] [place] [address] Uvaldo Vivar MD [address] [place] [address] [place] [phone] Social History Tobacco Use Types Packs/Day Years [...] Visit [facility] [address] [place] [phone] Uvaldo Vivar MD [address] [place] [address] Dr. [place]ath Pérez [place] [address] documented as of this encounter Visit Diagnoses Not on filedocumented in this encounter Care Teams Mortgage Loan Underwriter Relationship Specialty Start Date End Date Aakash Lundberg MD [address] [place] [address] PCP - General Internal Medicine 04/09/21 documented as of this encounter
[2024-06-20] VITALS (12 sets, daily range): BP systolic 114–135; BP diastolic 45–63; PULSE 64–72; RESP 13–17; TEMP 36.6–36.7; O2SAT 94–99; BMI 27.4
--- NOTE | ~2024-06-20 | IR_ITS ---
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 The patient presents to interventional radiology for placement of a port for chemotherapy. PROCEDURES: 1. Real-time ultrasound-guided access into the right internal jugular vein after documentation of selected vessel patency, and permanent image storing in the patient records. 2. Placement of a 6.0 Maltese single-lumen power port. CLINICIAN: Jerry Yu PA-C MEDICATIONS: - Versed 0.5 mg, Fentanyl 25 mcg, Lidocaine 1% 10 mL SQ -Antibiotics: Ancef 2g -For additional details, please see nursing flowsheet. Complications: None. Estimated blood loss: <5 ml Specimens: None. Contrast: None. Fluoroscopy time: 0.5 min MODERATE SEDATION TIME: 30 min PROCEDURE NOTE: The procedure, risks, benefits, and alternatives were carefully explained to the patient and written informed consent was obtained. The patient was placed supine on the fluoroscopy table. A timeout was performed. The right neck and chest was prepped and draped in usual sterile fashion. Maximum barrier technique was utilized. Local anesthesia was administered to the access site with 1% lidocaine. Under ultrasound guidance, the right internal jugular vein was accessed with a 5 fr micropuncture set. A 0.035 in wire was advanced into the IVC. A peel-away sheath was advanced over the wire and into the SVC, and the wire was removed. Next, subcutaneous lidocaine was administered to the chest. The port pocket was created after the skin incision, utilizing blunt dissection. Using blunt dissection, a subcutaneous tunnel was created that connects from the port pocket to the venotomy site. Through the peel-away sheath, the 6.0 fr catheter was placed. The catheter position was verified with fluoroscopy to be at the superior vena cava/right atrial junction. The port was connected to the catheter and was placed in the pocket. The venotomy site was closed with a 3-0 Vicryl subcutaneous suture. The port incision site was closed with interrupted 3-0 Vicryl subcutaneous sutures and surgical glue. Prior to closing the skin, 1 g of Ancef solution was placed in the pocket. The port was tested, flushed, and packed with heparin per routine protocol. The patient tolerated the procedure well. The patient was stable after the procedure and was transferred to the PACU. The procedure was performed under moderate sedation and with a dedicated nurse with continuous monitoring of vital signs. A permanent image of the ultrasound the neck and fluoroscopic image of the chest was saved and sent to PACS. FINDINGS: 1. Patent right internal jugular vein 2. Placement of a 6.0 Maltese single-lumen power port. 3. Port flushes and aspirates very well with a 10 mL syringe. No pneumothorax. IR/IR us guide venous access IMPRESSION: Placement of a 6.0 Maltese single-lumen power port. PLAN: - The patient will be discharged home when stable by sedation protocol. - Port may be used immediately. This procedure was performed by Jerry Yu PA-C, and directly supervised by Dr. Springer Electronically signed by: Jerzy Springer MD 06/21/2024 03:54 PM [facility]
[2024-06-20] MEDS: ceFAZolin Sodium/Dextrose,Iso 2 GM/50 ML PIGGYBACK IV (12:42)
--- NOTE | 2024-06-20 13:07 | MHC.SHP ---
Pre-Procedural Eval Section A - 24 Hr Update-Section A only Date of Service: 06/20/24 Section B - Complete if H&P > 30 days Chief Complaint: MALIGNANT NEOPLASM OF ANUS Details of Present Illness: 78 y/o female with anal cancer and poor iv access Relevant Family History (Specify if Yes): No Relevant Social History: None Present Medications: see Short Stay Collaborative assessment Medical History: Significant History History of Previous Operations: Relevant previous surgery/procedure and date(s) Allergies: Allergies Allergy/AdvReac Type Severity Reaction Status Date / Time tetracycline [TETRACYCLINE] Allergy Unknown ITCHINESS, Verified 06/20/24 12:11 rash nitrofurantoin Allergy Swelling Verified 06/20/24 12:11 atorvastatin [Lipitor] AdvReac Unknown Muscle pain Verified 06/20/24 12:11 bactrim Allergy Unknown Elevated Uncoded 05/24/24 14:30 LFTs/Itching/Nausea fentanyl AdvReac Severe Unconscious Uncoded 05/24/24 14:30 Review of Systems Sugical H&P ROS: Negative: Constitution, Cardiovascular and Respiratory Exam Surgical H&P Exam: Normal: Heart, Normal: Lungs, Normal: Skin and Normal: Neurological Plan 78 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
[2024-06-20] MEDS: Acetaminophen 1,000 MG/100 ML PIGGYBACK 400 MG IV (13:20)
[2024-06-20] MEDS: Midazolam HCl 2 MG/2 ML VIAL 0.5 MG IVPUSH (13:38)
[2024-06-20] MEDS: fentaNYL citrate/PF 100 MCG/2 ML VIAL 25 MCG IVPUSH ×2 (13:38→13:45)
== END 2024-06-20 14:44 | disposition home or self-care (01) ==
LOC: HO.SSS 10:51
PROVIDERS: Physician Assistant Surgical; PCP Internal Medicine; Visit Provider Internal Medicine
PROC: (CPT 36590; principal; 2024-06-20 13:00)
DX: Z45.2 Encounter for adjustment and management of vascular access device (principal); C21.0 Malignant neoplasm of anus, unspecified; N18.30 Chronic kidney disease, stage 3 unspecified; J44.9 Chronic obstructive pulmonary disease, unspecified; I48.0 Paroxysmal atrial fibrillation; R73.01 Impaired fasting glucose; Z79.01 Long term (current) use of anticoagulants; Z79.899 Other long term (current) drug therapy; Z87.891 Personal history of nicotine dependence; Z66 Do not resuscitate; Z88.1 Allergy status to other antibiotic agents
CPT/HCPCS: 36561; 76937; 99152; 99153; J0131; J0690; J1642; J1644; J2003; J2250; J2310; J3010

== ENCOUNTER → 2024-06-20 14:30 | Outpatient (BNV) | payer MEDICARE, BC, SELFPAY | PROVIDERS: PCP Internal Medicine; Visit Provider Physician Assistant Surgical | DX: C44.520 Squamous cell carcinoma of anal skin (principal) | CPT/HCPCS: 36561; 76937 ==

== ENCOUNTER 2024-07-16 10:09 | Outpatient (AMB) | payer MEDICARE, BC, SELFPAY ==
--- NOTE | 2024-07-16 10:23 | A.OFFVIS_ITS ---
Vital Signs 07/16/24 10:26 Height 5 ft 1 in Weight 143 lb 4.807 oz BMI 27.1 BP 119/49 L Blood Pressure Location Lt brachial Position Sitting Pulse 74 Intake Visit Reasons: Possible Crohns Intake Note: Raquel presents in the office as a follow up for her colonoscopy - states that she has possible crohns. CC: Here for results and next steps. Automotive Designer Required: No Allergies tetracycline [TETRACYCLINE] Allergy (Unknown, Verified 07/16/24 10:27) ITCHINESS, rash nitrofurantoin Allergy (Verified 07/16/24 10:27) Swelling atorvastatin [Lipitor] Adverse Reaction (Unknown, Verified 07/16/24 10:27) Muscle pain bactrim Allergy (Unknown, Uncoded 07/16/24 10:27) Elevated LFTs/Itching/Nausea fentanyl Adverse Reaction (Severe, Uncoded 07/16/24 10:27) Unconscious HPI HPI Possible Crohns: Details: 79 yr old f here for f/u RECAP: Admitted with rectal bleeding 05/19 she had colonoscopy with anal mass noted referred ti surgery and had bx with sq cell cancer she also had evidence of active crohns INTERIM: she will be getting XRT and chemo she has no abdominal pain appetite is fair she has constipation intolerant of lialda EXAM: GENERAL: The patient is well developed and nontoxic. VITAL SIGNS:see workflow HEENT: Nonicteric sclerae, PERRLA, EOMI. Oropharynx clear. Moist mucous membranes. Conjunctivae appear well perfused. No thyroid mass. CHEST: Chest wall is nontender. HEART: Regular rate and rhythm without murmurs. LUNGS: Clear to auscultation bilaterally. ABDOMEN: Soft, positive bowel sounds, nontender, no organomegaly.no flank tenderness SKIN: No rash, no excessive bruising, petechiae, or purpura. NEUROLOGIC: Cranial nerves II-XII intact without motor/sensory deficit. 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 External hemorrhoids Hyperuricemia Vitamin D deficiency Impaired fasting glucose Inflammatory arthritis Multinodular thyroid Mixed stress and urge urinary incontinence Dyslipidemia Paroxysmal atrial fibrillation Chronic kidney disease, stage 3 Osteoporosis COPD (chronic obstructive pulmonary disease) Acquired hypothyroidism Surgical History Hx of colonoscopy S/P partial hysterectomy History of section Family History Father AAA (abdominal aortic aneurysm) CVA (cerebral vascular accident) Mother Diabetes mellitus HTN (hypertension) Gallbladder cancer Sister Diabetes mellitus Son Substance use disorder Son Substance use disorder Social History Household Members: Children Housing: Other Housing Other:: Duplex Do you presently have visiting nurse or other home services: No Alcohol intake: current Alcohol intake frequency: does not drink Comment: steady on feet in room Patient Tobacco Use Status: Former Tobacco user Tobacco use type: Cigarette Years Smoked: 20 years e-Cigarette/Vaping Use: Never Used Second Hand Smoke Exposure: No Advance Directives Date on File: 05/30/20 service: No Current occupational status: retired Gender identity: Female Cognitive needs: No Hearing needs: No Vision needs: Yes Physical Exam Vital Signs: Last Vital Signs Pulse 74 07/16/24 10:26 BP 119/49 L 07/16/24 10:26 BMI result Body Mass Index 27.1 Assessment & Plan Assessment & Plan (1) Anal squamous cell carcinoma: Code(s): C21.0 - Malignant neoplasm of anus, unspecified Category: Medical Plan: as above Medications: New mesalamine ER (Pentasa) 1,000 mg (2 x 500 mg) PO BID 90 caps 1RF Refilled omeprazole 20 mg PO BID@0630,1630 90 caps 0RF Coding Level of Care Code Est Pt Level 3 (95969) Diagnoses Anal squamous cell carcinoma C21.0
[2024-07-16 10:26] VITALS: BP 119/49; PULSE 74; BMI 27.1
== END 2024-07-16 10:55 | disposition home or self-care (01) ==
LOC: HO.HGI 10:10
PROVIDERS: PCP Internal Medicine; Visit Provider Internal Medicine Gastroenterology
DX: C21.0 Malignant neoplasm of anus, unspecified (principal)
CPT/HCPCS: 99213

== ENCOUNTER → 2024-07-16 10:09 | Outpatient (BNVA) | payer MEDICARE, BC, SELFPAY | PROVIDERS: PCP Internal Medicine; Visit Provider Internal Medicine Gastroenterology | DX: C21.0 Malignant neoplasm of anus, unspecified (principal) | CPT/HCPCS: 99212 ==

== ENCOUNTER 2024-10-25 14:48 | Emergency (ER) | payer MEDICARE, BC, SELFPAY ==
--- NOTE | ~2024-10-25 | CT_ITS ---
CLINICAL HISTORY: LLQ TTP. Hx rad chemo anal CA CT abdomen and pelvis with contrast Comparison: CT - CT GI BLEED ABD PEL WO/W IVCON - 05/07/24 13:40 EST Findings: The lung bases are clear. Atrophic pancreas. Cholelithiasis. Mild gallbladder distention. Liver, spleen, and adrenal glands are within normal limits. No hydronephrosis. Symmetric contrast enhancement of the kidneys. Right renal cysts. Wall thickening, submucosal edema and surrounding fat stranding in the descending colon through the rectum. No perforation or abscess. Moderate stool in the right hemicolon. No bowel obstruction, pneumatosis or pneumoperitoneum. Aortic atherosclerosis. No aneurysm. Trace pericolonic fluid on the left. Pelvic organs unremarkable. Normal appendix. The bones are intact. IMPRESSION: Colitis involving descending colon through rectum without perforation or abscess. This document has been electronically signed by: Bev Torres MD on 10/25/2024 18:33:50
[2024-10-25 14:59] VITALS: BP 127/59; PULSE 95; RESP 18; TEMP 36.4; O2SAT 97; BMI 22.5
--- NOTE | 2024-10-25 15:08 | ED_ITS ---
HPI - General Adult General Chief complaint: Abdominal Pain Stated complaint: Lower abd pain L side Time Seen by Provider: 10/25/24 16:02 History of Present Illness ED Provider: Irwin Golden MD HPI narrative: 79-year-old female with history of anal cancer and radiation chemo to that area. Chronic anal/rectal pain and loose stool chronically. This has not changed she denies blood in the stool. No fever or chills but she has left lower quadrant pain and tenderness. No vomiting Related Data Home Medications ?Medication ?Instructions ?Recorded ?Confirmed apixaban 5 mg tablet (Eliquis) 5 mg PO BID 05/05/20 Held on 05/11/24. Instructions: Resume on 05/14/24. flecainide 50 mg tablet 75 mg PO BID 09/09/22 rosuvastatin 5 mg tablet 5 mg PO TUTH 05/07/24 diltiazem HCl 240 mg 240 mg PO DAILY 07/16/24 tablet,extended release 24 hr Previous Rx's ?Medication ?Instructions ?Recorded hydrocortisone 2.5 % topical cream 1 appl IL BID-QID P RN hemorrhoids 11/28/23 with perineal applicator #30 grams (Proctosol HC) pramoxine 1 % topical foam 1 appl IL BID PRN hemorrhoi ds #15 05/11/24 (Proctofoam) grams levothyroxine 75 mcg tablet 75 mcg PO DAILY #90 caps 0 05/21/24 diazepam 2 mg tablet 2 mg PO .15 min prior to PET PRN 06/12/24 sleep #1 tab mesalamine 500 mg capsule,extended 1,000 mg (2 x 500 m g) PO BID #90 07/16/24 release (Pentasa) caps omeprazole 20 mg capsule,delayed 20 mg PO BID@0630,163 0 #90 caps 07/16/24 release amoxicillin 875 mg-potassium 1 tab PO BID 7 days #14 t abs 10/25/24 clavulanate 125 mg tablet Allergies Allergy/AdvReac Type Severity Reaction Status Date / Time tetracycline (TETRACYCLINE) Allergy Unknown ITCHINESS, Verified 10/25/24 15:03 rash nitrofurantoin Allergy Swelling Verified 10/25/24 15:03 atorvastatin (Lipitor) AdvReac Unknown Muscle pain Verified 07/03/25 15:03 bactrim Allergy Unknown Elevated Uncoded 07/16/24 10:27 LFTs/Itching/Nausea fentanyl AdvReac Severe Unconscious Uncoded 07/16/24 10:27 [facility] Past Medical History Medical History History of diverticulitis Anal squamous cell carcinoma Hemorrhoids 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 External hemorrhoids Hyperuricemia Vitamin D deficiency Impaired fasting glucose Inflammatory arthritis Multinodular thyroid Mixed stress and urge urinary incontinence Dyslipidemia Paroxysmal atrial fibrillation Chronic kidney disease, stage 3 Osteoporosis COPD (chronic obstructive pulmonary disease) Acquired hypothyroidism Surgical History Hx of colonoscopy S/P partial hysterectomy History of section Family History Family History Father AAA (abdominal aortic aneurysm) CVA (cerebral vascular accident) Mother Diabetes mellitus HTN (hypertension) Gallbladder cancer Sister Diabetes mellitus Son Substance use disorder Son Substance use disorder Social History Social History Household Members: Children Housing: Other Housing Other:: [employer]lex Do you presently have visiting nurse or other home services: No Alcohol intake: current Alcohol intake frequency: does not drink Comment: steady on feet in room Patient Tobacco Use Status: Former Tobacco user Tobacco use type: Cigarette Years Smoked: 20 years e-Cigarette/Vaping Use: Never Used Second Hand Smoke Exposure: No Substance Use Type: Marijuana Advance Directives Date on File: 05/30/20 service: No Current occupational status: retired Gender identity: Female Cognitive needs: No Hearing needs: No Vision needs: Yes Physical Exam ED Vital Signs: Vital Signs - 24 hr 10/25/24 14:59 10/25/24 19:46 10/25/24 20:11 Temperature 97.6 F 98.2 F 98.2 F Pulse Rate 95 90 89 Respiratory Rate 18 17 Blood Pressure 127/59 L 127/60 127/60 Pulse Oximetry 97 94 96 Oxygen Delivery Method Room Air Room Air BMI result Body Mass Index 22.5 Const Other: EXAM: Gen: Alert, awake, well appearing, well hydrated. Head: Atraumatic Eyes: Anicteric, Normal conjunctiva. ENT: Moist mucosa, no pallor. ? Neck: Supple. Skin: ?No observable rash or bruising on exposed or examined skin Respiratory: Breathing comfortably, No distress.Clear to auscultation bilaterally, symmetric chest expansion, No wheeze, rales, ronchi. Cardiovascular: Regular rate and rhythm. No murmurs or rub. Well perfused periphery, warm extremities. No edema. ? Abdominal: Moderate left lower quadrant tenderness. Soft, no objective distension. No palpable masses or obvious organomegaly. ?No guarding, no rebound tenderness or other peritoneal findings. : No flank tenderness. Neuro: Alert. Gross movement of all extremities intact. ? Psych: Calm. Cooperative. MSK: No grossly visible deformity. Vital signs: See flowsheet Course Course Course Narrative: RME: 79-year-old female with history of anal cancer recently finished radiation presents to ED for now. Diarrhea and lower abdominal pain. Patient denies any fever or chills or urinary symptoms. Labs stool sample UA ordered. Medications Administered Discontinued Medications Generic Name Dose Route Start Last Admin Trade Name Freq PRN Reason Stop Dose Admin Amoxicillin/Clavulanate Potassium 875 mg 10/25/24 18:47 10/25/24 20:06 Amoxicillin/Potassium Clav 875 Mg Tablet PO 10/25/24 18:48 875 mg ONCE ONE Administration Iohexol 100 ml 10/25/24 17:38 10/25/24 17:44 Iohexol 350 Mg/Ml 100 Ml Infus..Btl IV 10/25/24 17:39 85 ml ONCE ONE Administration Tramadol HCl 50 mg 10/25/24 16:45 10/25/24 17:00 Tramadol Hcl 50 Mg Tablet PO 10/25/24 16:46 50 mg ONCE ONE Administration Medical Decision Making Medical Decision Making [facility] Narrative: Medical Decision Makin-year-old female with history of cancer as above. Left lower quadrant tenderness appears new diarrhea is not new. She appears euvolemic and has no fever her vital signs are stable. CT revealed colitis. No evidence of ischemia such as mesenteric air for portal venous gas. She looks well p.o. tolerant pain controlled with tramadol DC home Preliminary Favored Differential Diagnosis: Colitis, diverticulitis, complication of radiation or cancer previously less likely bowel ischemia given the character and examination among additional considered etiologies Testing Interpreted Independently: Not Applicable Radiology or Lab testing Results Reviewed: Labs reassuring. CT report reviewed showing colitis. Non actionable mild hyponatremia Consults: Not Applicable Independent Historians/External Chart Reviews: Not Applicable Social Determinants of Health Impacting MDM/Planning: Not Applicable Lab Data 10/25/24 16:02 10/25/24 16:02 Labs: Lab Results 10/25/24 Range/Units 16:02 WBC 10.7 (4.8-10.8) X10*3/uL RBC 3.64 L (4.20-5.50) X10*6/uL Hgb 12.0 (12.0-16.0) g/dl Hct 36.3 L (37.0-47.0) % MCV 99.7 H (80.0-98.0) fL MCH 33.0 (27.0-33.0) pg MCHC 33.1 (31.0-35.0) g/dl RDW 16.3 H (11.0-16.0) % Plt Count 193 (160-400) X10*3/uL MPV 8.4 L (9.4-12.3) fL Immature Gran % (Auto) 0.4 (0.0-0.4) % Neut % (Auto) 86.6 H (45-73) % Lymph % (Auto) 0.3 L (20-40) % [place] % (Auto) 11.1 H (2-11) % Eos % (Auto) 1.2 (0-4) % Baso % (Auto) 0.4 (0-2) % Lymph # (Auto) 0.0 L (1.2-4.9) X10*3/uL [place] # (Auto) 1.2 (0.1-1.2) X10*3/uL Eos # (Auto) 0.1 (0.0-0.4) X10*3/uL Baso # (Auto) 0.0 (0.0-0.2) X10*3/uL Abs Immat Gran (auto) 0.04 H (0.00-0.03) X10*3/uL Absolute Neuts (auto) 9.3 H (2.0-8.3) x10*3/uL Absolute Nucleated RBC 0.000 (0.0-0.012) X10*3/uL Nucleated RBC % (auto) 0.0 (0.0-0.2) /100WBC Sodium 134 L (135-145) mmol/L Potassium 4.3 (3.3-5.1) mmol/L Chloride 100 (96-108) mmol/L Carbon Dioxide 25 (22-29) mmol/L Anion Gap 13 (12-20) BUN 13 (9-16) mg/dL Creatinine 0.94 (0.5-1.4) mg/dL Estim Creat Clear Calc 37.7 Estimated GFR 57 Random Glucose 93 (60-115) mg/dL Calcium 9.2 (8.4-10.2) mg/dL Magnesium 2.1 (1.6-2.6) mg/dL Total Bilirubin 0.5 (0.0-1.0) mg/dL AST 15 (5-31) U/L ALT < 6 (0-31) U/L Alkaline Phosphatase 88 (39-117) U/L Total Protein 7.0 (6.5-8.0) g/dL Albumin 3.3 L (3.5-5.0) g/dL Discharge Plan Discharge Clinical Impression: Colitis Patient Disposition: Home, Self-Care Instructions: Colitis (ED) Additional Instructions: _ DISCHARGE DIAGNOSES: Colitis, inflammation of your descending left-sided colon HISTORY OF PRESENTATION: ?Abdominal pain chronic diarrhea EMERGENCY DEPARTMENT COURSE,TESTS, TREATMENTS: While in the ED today you had a CT scan and labs and received oral Toradol and a 1st dose of Augmentin an antibiotic we will prescribe you DISCHARGE MEDICATIONS: ?[We have made no changes to your regular medication regimen] we have added Augmentin an antibiotic to take for the next 7 days FOLLOW-UP: ?Call your primary or general physician soon as possible to discuss your symptoms, your ED visit and to discuss follow up plans Call your primary doctor and/or oncology team to notify them of your colitis diagnosis and antibiotics INSTRUCTIONS ?& RETURN PRECAUTIONS: If any symptoms change first call your primary physician, if it is after-hours your primary doctors office should have a provider mineral wool insulation supervisor you can speak with. If the symptoms are severe or very concerning to you then call 911 or return to the ED. Return if you develop severe or worsening pain high fevers shaking chills sweats at night blood in your stool or other severe symptoms Irwin Golden MD Emergency Physician [facility] Prescriptions: New amoxicillin-pot clavulanate 875-125 mg tablet 1 tab PO BID 7 Days Qty: 14 0RF No Action hydrocortisone [Proctosol HC] 2.5 % cream with perineal applicator 1 appl IL BID-QID PRN (Reason: hemorrhoids) Qty: 30 0RF levothyroxine 75 mcg tablet 75 mcg PO DAILY Qty: 90 1RF diazepam 2 mg tablet 2 mg PO .15 min prior to PET PRN (Reason: sleep) Qty: 1 0RF rosuvastatin 5 mg tablet 5 mg PO TUTH pramoxine [Proctofoam] 1 % foam 1 appl IL BID PRN (Reason: hemorrhoids) Qty: 15 0RF Eliquis 5 mg tablet 5 mg PO BID Rx Instructions: stop for 3 days before colonoscopy flecainide 50 mg tablet 75 mg PO BID diltiazem HCl 240 mg tablet extended release 24 hr 240 mg PO DAILY mesalamine [Pentasa] 500 mg capsule, extended release 1,000 mg PO BID Qty: 90 1RF omeprazole 20 mg capsule,delayed release(DR/EC) 20 mg PO BID@0630,1630 Qty: 90 0RF Interventions: ED Discharge Assessment Last Done: 10/25/24 20:11 Discharge Date/Time: 10/25/24 20:18 Print Language: Burmese
--- OUTSIDE RECORDS SUMMARY | 2024-10-25 15:52 | XMS_ITS | Encounter Summary ---
Author Organization [facility] Address [address] [facility] [address] [place] [address] Phone Care Team Providers Care Powersaw Supervisor Name Role Phone Aakash Lundberg MD Primary Care Provider +1- [phone] Reason for Visit * Reason Comments Med Refill Encounter Details Date Type Department Care Team (Late Contact Info) Description 10/04/2022 Refill [facility] [address] [place] [address] Gustavo Pina MD [address] [facility] [address] [place] [phone] Social History Tobacco Use Types Packs/Day Years [...] [facility] [address] [place] [address] Uvaldo Vivar MD [address] [facility] [address] [place] [phone] documented as of this encounter Visit Diagnoses Not on filedocumented in this encounter Care Teams Powersaw Supervisor Relationship Specialty Start Date End Date Aakash Lundberg MD [facility] [place] [address] PCP - General Internal Medicine 04/09/21 documented as of this encounter
--- OUTSIDE RECORDS SUMMARY | 2024-10-25 15:52 | XMS_ITS | Clinical Summary ---
Author Organization [facility] Address [address] [place] [address] Phone Care Team Providers Care Elevator Service Mechanic Name Role Phone Rossi Mathiszarock Florian Primary Care Provider + Medical History Medical History Date Comments PAF (paroxysmal atrial fibri llation) (CMS/HCC V24, CMS/HCC V28) DX:PAF (paroxysmal atrial fibrillation) ([facility]) Dyslipidemia DX:Dyslipidemia HTN (hypertension) DX:HTN (hyper tension) Hypothyroidism DX:Hypothyroidis m History of tobacco use DX:Histor y of tobacco use Social History Tobacco Use Types Packs/Day Years Used Date Smoking Tobacco: Never Assessed Comments Unknown Sex and Gender Information Value Date Recorded Sex Assigned at Not on file Legal Sex Female 2:39 PM EST Gender Identity Not on file Sexual Orientation Not on file Obstetrics History Plan of Treatment Health Maintenance Due Date Last Done Comments Cholesterol Screening (Lipid Panel) 03/24/2022 09/11/2004 Depression Screening 03/24/2022 Falls Risk Assessment 03/24/2022 Medicare Annual Wellness Visit 03/24/2022 Osteoporosis Screening (Bone Density Screening) 03/24/2022 Social Influencers of Health Screening 03/24/2022 Hypertension/CHF/CAD Annual BMP Blood Test 06/14/2024 COVID-19 Vaccine (8 - Pfizer risk 2023- season) 2024 01/07/2024, 03/02/2023, 12/31/2021, Additional history exists DTaP,Tdap,and Td Vaccines (2 - Td or Tdap) 09/24/2027 09/23/2017 Zoster Vaccines Completed 09/23/2017, 06/24, 01/28/2015 Pneumococcal Vaccine: 50+ Years Completed 12/17/2022, 01/05/2016 RSV Immunization Adult Patients Completed 01/03/2023 Influenza Vaccine Completed 01/07/2024, , 12/31/2021, Additional history exists HIB Vaccines Aged Out No longer eligi ble based on patient's age to complete this topic HPV Vaccines Aged Out No longer eligi ble based on patient's age to complete this topic Hepatitis A Vaccines Aged Out No long er eligible based on patient's age to complete this topic Hepatitis B Vaccines Aged Out No long er eligible based on patient's age to complete this topic IPV Vaccines Aged Out No longer eligi ble based on patient's age to complete this topic MMR Vaccines Aged Out No longer eligi ble based on patient's age to complete this topic Meningococcal ACWY Vaccine Aged Out N o longer eligible based on patient's age to complete this topic Meningococcal B Vaccine Aged Out No l onger eligible based on patient's age to complete this topic RSV Immunization Patients Under 20 months Aged Out No longer eligible based on patient's age to complete this topic Varicella Vaccines Aged Out No longer eligible based on patient's age to complete this topic Insurance MEDICARE Care Teams Elevator Service Mechanic Relationship Specialty Start Date End Date Wendy Mathis DO [address] [facility] [address] [place] [address] PCP - General Family Medicine 05/31/17
--- OUTSIDE RECORDS SUMMARY | 2024-10-25 15:52 | XMS_ITS | Data Portability ---
Author Organization [facility], , [facility] Address [address] [place] [address] Assessment Encounter Date Assessment Date Assessment LastModified by Organization Details LastModified Time 03/26/2010 03/26/2010 Digital bilatera l screening mammogram Comparison: 11/24/2006 No new suspicious dominant masses. Intramammary nodes/nodular densities bilaterally, stable. Benign appearing secretory calcifications inferiorly on the left have increased but there are no suspicious clusters of microcalcificatio n. Exam reviewed with CAD. Conclusion: No mammographic evidence of malignancy. Follow-up recommended in one year. BI-RADS 2, [...] By Organization Details Last Modified Time 01/14/2015 [id number] cataracts-monito r . Rx change-new spectacle Rx given. RTC 1 year comp exam-cataracts. Patient wishes to have her epiphora addressed [email or web address] Not available 01/17/2015 15:45:52 01/20/2016 [id number] RTC 6 months for CEE or sooner prn [email or web address] Not available 01/20/2016 10:56:58 Reason for Referral None Reported. Results Created Date Observation Date Name Description Value Unit Range Abnormal Flag Note LastModifiedBy Organization Detail LastModifiedTime 04/06/20 10 03/26/2010 mammo jonathan wan No observ ation record ed. [facility] (Imaging) [address] , [place], [address], 11/17/2012 04:34:18 Result Notes None recorded. Problems Name Problem SNOMED Code Status Onset Date Resolution Date Notes Provider Name and Address Organization Details Recorded Time Nuclear senile cataract 094657693 Active Alphonse Buckley, OD [address] [place], [address] , [facility] 5 15:45:52 Regular astigmatis m 09297646 Active Alphonse Buckley, OD [address] [place], [address] , [facility] 5 15:45:52 Mixed hyperlipid emia 578899094 Active 2004 Randi combs, [facility] 5 15:37:26 Presbyopia 63946250 Active 2008 Alphonse Buckley, OD [address] [place], [address] , [facility] 5 15:45:52 Cortical senile cataract 44149798 Active 2005 Alphonse Buckley, OD [address] [place], [address] , [facility] 5 15:45:52 Astigmatis m 65383964 Active 2005 Not Available [facility] 3 03:07:04 Corneal ulcer 39342036 Active 2005 Not Available [facility] 3 03:07:04 Neck pain 62151709 Completed 200503/14/2013 Not Available [facility] 3 02:00:32 Marginal corneal ulcer 30317295 Active 2006 Not Available [facility] 3 03:07:04 Glucose level outside reference range 482052536 Active 2004 Not Available [facility] 3 03:07:04 Incipient senile cataract 880435834 Active 2007 Not Available [facility] 3 03:07:04 Hypermetro lila 71522250 Active 2007 Alphonse Buckley, OD [address] [place] [address], [place], [address] , [facility] 5 15:45:52 Red eye Completed 200603/14/2013 Not Available [facility] 3 02:04:06 Keratoconj unctivitis 97663943 Active 2005 Not Available [facility] 3 03:07:04 Common cold 08066277 Completed 200403/14/2013 Not Available [facility] 3 02:00:24 On examinatio n - a rash Completed 200503/14/2013 Not Available [facility] 3 02:00:45 Dry eyes 600601023 Active 2005 Not Available [facility] 3 03:07:04 Osteoporos is 59466344 Active 2005 Not Available [facility] 3 03:07:04 Acute conjunctiv itis 09231098 Completed 200003/14/2013 Not Available [facility] 3 02:02:28 Malaise and fatigue 269857038 Completed 200403/14/2013 Not Available [facility] 3 02:00:14 Pain in eye 22788732 Completed 200603/14/2013 Not Available [facility] 3 02:03:50 Problem Notes None recorded. Procedures Surgical History Date Name Laterality Status Provider Name and Address Organization Details Recorded Time 01/14/2015 Refraction completed Petra Berman MA [facility] 01/14/2015 11:08:17 Imaging Results None recorded. Procedure Notes None recorded. Medical Equipment None Reported. Allergies Allergen ID Allergen Name Allergen Category Reaction Reaction Severity Criticality Documentation Date Start Date Code Code System Note Provider Name and Address Organization Details Recorded Time 255296 tetracycl ine medicatio n itching Not available Not available 01/14/2015 15987 RxNorm Petra Berman MA null, [facility] 5 11:08:12 Medications Name Sig [...] Not Available No t Available Fluzone High-Dose 2013- (PF) 180 mcg/0.5 mL intramuscul ar syringe active Not Available Not Available N ot Available Fluzone High-Dose 2014- (PF) 180 mcg/0.5 mL intramuscul ar syringe inject 0.5 millilite r intramusc ularly 01/19 completed Not Available Not Available Not Available Fluzone High-Dose 4958-5846 (PF) 180 mcg/0.5 mL intramuscul ar syringe [...] unspecified formulation 1 completed Not Available [facility] 03/10/2011 05:20:34 influenza, unspecified formulation 5 completed Not Available [facility] 03/10/2011 05:21:29 Past Encounters Encounter ID Performer Location Encounter Start Date Encounter Closed Date Diagnosis/Indication Diagnosis SNOMED-CT Code Diagnosis ICD10 Code Diagnosis Note [id number] MD YVETTE Webster, [facility], [address] [place] [address] 03/11/2000 09:00:00 05/15/2008 02:02:29 [id number] Cassandra Lopez NP , [facility], [address] [place] [address] 03/08/2001 15:30:00 05/15/2008 02:02:29 [id number] TREATMENT NURSE [facility], [facility], [address] [place] [address] 04/24/2001 10:45:00 05/15/2008 02:02:29 [id number] Cassandra Lopez NP , [facility], [address] [place] [address] 09/07/2004 13:09:20 09/09/2004 17:51:07 [id number] [facility] , [address] [address] 09/11/2004 11:42:55 09/14/2004 08:33:53 [id number] [facility] - [address] [address] 09/11/2004 07:49:06 09/11/2004 07:49:10 [id number] Kaya Hammond MD , [facility], [address] [place] [address] 03/17/2005 14:44:07 03/24/2005 13:17:18 [id number] [facility] , [address] [address] 09/13/2005 13:13:44 09/14/2005 08:31:37 [id number] [facility] - [address] [address] 09/13/2005 14:32:54 09/13/2005 14:33:04 [id number] BEBA Martin, [facility], [address] [place] [address] 09/13/2005 13:38:37 09/14/2005 15:50:43 [id number] Gabrielle Blackwell, OD [facility], [address] [address] 09/27/2005 10:10:47 05/15/2008 02:02:29 [id number] [facility], [address] [place] [address] 09/27/2005 12:37:27 09/27/2005 12:37:57 [id number] [facility] , [address] [place] [address] 09/27/2005 09:37:09 05/15/2008 02:02:29 [id number] Gabrielle Blackwell, OD [facility], [address] [place] [address] 10/04/2005 14:40:45 05/15/2008 02:02:29 [id number] [facility] - [address] [place] [address] 12/20/2005 09:04:10 12/20/2005 09:04:34 [id number] Gabrielle Blackwell, OD [facility], [address] [place] [address] 03/31/2006 17:18:53 04/01/2006 09:58:16 [id number] Gabrielle Blackwell, OD [facility], [address] [address] 07/18/2006 11:42:47 07/18/2006 16:44:48 [id number] Gabrielle Blackwell, OD [facility], [address] [place] [address] 07/19/2006 11:40:18 07/19/2006 15:22:27 [id number] Gabrielle Blackwell, OD [facility], [address] [place] [address] 07/21/2006 09:36:13 07/21/2006 15:44:48 [id number] Gabrielle Blackwell, OD [facility], [address] [address] 07/22/2006 09:40:07 07/22/2006 15:00:51 [id number] Gabrielle Blackwell, OD [facility], [address] [place] [address] 07/28/2006 09:45:06 07/28/2006 17:06:[id number] [facility] , [address] [place] [address] 11/24/2006 08:36:18 11/25/2006 09:18:40 [id number] [facility] , [address] [address] 11/24/2006 00:00:00 05/15/2008 02:02:29 [id number] [facility] , [address] [address] 11/27/2007 09:29:12 11/28/2007 09:22:50 [id number] [facility] , [address] [address] 11/27/2007 00:00:00 05/15/2008 02:02:29 [id number] Alphonse Buckley, OD [facility], [address] [address] 03/26/2008 15:52:05 03/28/2008 10:28:39 [id number] [facility], [address] [address] 02/04/2009 10:16:06 02/04/2009 16:31:36 [id number] [facility], [address] [address] 02/05/2009 13:53:21 02/05/2009 14:04:28 [id number] [facility] Radiology , [address] [address] 03/26/2010 15:28:08 03/30/2010 14:32:38 [id number] Alphonse Buckley, OD [facility], [address] [address] 01/14/2015 10:39:56 01/14/2015 12:04:17 Nuclear senile cataract 860993709 Cortical s enile cataract 36193401 Hypermetropia 59728700 Regular astigmatism 10143409 Presbyopia 78328917 Complainin g of - watering eyes 290323495 [id number] Laura Nick, OD [facility], [address] [address] 01/20/2016 10:13:22 01/20/2016 10:52:02 Nuclear senile cataract 124103537 H25.13 mild OU; pt ed limited views 2' small pupil exam. also h/o macular RPE mottling OU, not discussed. observe. pt happy with current vision and glasses. Health Concerns Section Related Observation LastModified by Organization Detai ls LastModified Time None Recorded Concern Status LastModified by Organization Details LastModified Time None Recorded Advance Directives Directive None Recorded Payers Insurance Date Sequence Insurance Name Policy Number Policy Mckeon Covered Member ID Mckeon Member ID Guarantor Name 12/19/2014 1 [facility] [id number] Raquel Nicholas [id number] Raquel Rivas [place] 11/14/2016 1 [place] [employer] Raquel Rivas [place] [id number] Raquel Rivas [place] 12/19/2014 1 [employer] (PPO) Raquel Rivas [place] [id number] Raquel Rivas [place] 09/07/2004 1 [facility] [employer] [place] [id number] John Nicholas [id number] Raquel Rivas Cristopher 12/19/2014 1 [employer] - OPEN ACCESS PLUS [id number] Raquel Nicholas [id number] Raquel Rivas [place] 07/19/2016 2 [facility] [employer] [place] 111 John Nicholas [id number] Raquel Rivas [place] Notes Date Note Type Note Provider Name and Address Organization Details Recorded Time 01/20/2016 text/html CataractReported bypatient.Location:bi lateral Quality:painless Severity:mild Onset/Timing:gradual Laura Nick, OD [address] [place] [address], [place], [address], [facility] 01/20/2016 10:58:09 OBGyn Episode No OBEpisode recorded.
[2024-10-25 16:06] LABS: MANUAL DIFF FLAG NO
[2024-10-25 16:09] LABS: Hematocrit 36.3 % (37.0-47.0); Hemoglobin 12.0 g/dl (12.0-16.0); Imm Gran Abs Auto 0.04 X10*3/uL (0.00-0.03); Imm Gran Pct Auto 0.4 % (0.0-0.4); Lymphocytes Absolute Auto 0.0 X10*3/uL (1.2-4.9); Mean Corpuscular HGB Conc 33.1 g/dl (31.0-35.0); Mean Corpuscular Hemoglobin 33.0 pg (27.0-33.0); Mean Corpuscular Volume 99.7 fL (80.0-98.0); NRBC Abs Auto 0.000 X10*3/uL (0.0-0.012); NRBC Pct Auto 0.0 /100WBC (0.0-0.2); Platelet Count 193 X10*3/uL (160-400); Red Blood Count 3.64 X10*6/uL (4.20-5.50); White Blood Count 10.7 X10*3/uL (4.8-10.8)
[2024-10-25 16:35] LABS: Alanine Aminotransferase < 6 U/L (0-31); Albumin Level 3.3 g/dL (3.5-5.0); Alkaline Phosphatase 88 U/L (39-117); Anion Gap 13 (12-20); Aspartate Amino Transferase 15 U/L (5-31); Blood Urea Nitrogen 13 mg/dL (9-16); Calcium 9.2 mg/dL (8.4-10.2); Carbon Dioxide 25 mmol/L (22-29); Chloride 100 mmol/L (96-108); Creatinine Clr Calc Pharmacy 37.7; Estimated Glomerular Filt Rate 57; Magnesium 2.1 mg/dL (1.6-2.6); Potassium 4.3 mmol/L (3.3-5.1); Sodium 134 mmol/L (135-145); Total Protein 7.0 g/dL (6.5-8.0)
[2024-10-25] MEDS: iohexoL 350 MG/ML 100 ML INFUS..BTL IV (17:44)
--- NOTE | 2024-10-25 18:34 | PC.NURSE ---
pt attempted to give a stool sample - sample contaminated with urine, informed MD of contamination and unable to send to lab. per MD ok to hold off on sample now, will consider straight cath for urine sample if CT warrants further eval
[2024-10-25 19:46] VITALS: BP 127/60; PULSE 90; TEMP 36.8; O2SAT 94
[2024-10-25 20:11] VITALS: BP 127/60; PULSE 89; RESP 17; TEMP 36.8; O2SAT 96
== END 2024-10-25 20:18 | disposition home or self-care (01) ==
PROVIDERS: Physician Assistant; Emergency Provider Emergency Medicine; PCP Internal Medicine
DX: K52.9 Noninfective gastroenteritis and colitis, unspecified (principal); R10.2 Pelvic and perineal pain; Z79.899 Other long term (current) drug therapy
CPT/HCPCS: 36415; 74177; 80053; 83735; 85025; 99284; Q9967

== ENCOUNTER → 2024-10-25 16:45 | Outpatient (BNV) | payer MEDICARE, BC, SELFPAY | PROVIDERS: Emergency Provider Emergency Medicine; PCP Internal Medicine; Visit Provider Radiology Diagnostic Radiology | DX: R10.30 Lower abdominal pain, unspecified (principal) | CPT/HCPCS: 74177 ==

== ENCOUNTER 2024-10-29 16:56 | Inpatient (IN) | payer MEDICARE, BC, SELFPAY ==
[2024-10-29] VITALS (8 sets, daily range): BP systolic 112–145; BP diastolic 48–100; PULSE 88–106; RESP 16; TEMP 36.3–37; O2SAT 93–97; BMI 22.5
--- NOTE | ~2024-10-29 | CT_ITS ---
CLINICAL HISTORY: colitis, pain CT ABDOMEN AND PELVIS WITH CONTRAST COMPARISON: 10/25/2024. FINDINGS: Wall thickening and mucosal enhancement is again noted involving the distal descending colon, sigmoid colon, and rectum, with some associated areas of pericolonic inflammation. This does not appear to be significantly changed. Imaging findings are compatible with proctocolitis. Small amount of free fluid is again noted within the left paracolic gutter and pelvis. This is not significantly changed. No abscess or free air. Large amount of stool is noted within the ascending and proximal transverse colon. Appendix is not definitively visualized. No evidence of a bowel obstruction. Mild bibasilar atelectatic/fibrotic changes are again noted. Fatty liver is again suspected. Cholelithiasis is again noted. No pericholecystic inflammation. Stomach is significantly underdistended which precludes accurate assessment. No CT evidence of acute pancreatitis. Mild prominence of the pancreatic duct is noted. Pancreas divisum is noted. Spleen is unremarkable. Thickening of the adrenal glands is again noted. A few small right-sided renal cysts are noted. Subcentimeter low-attenuation lesions in the bilateral kidneys are too small to characterize. Subcentimeter increased attenuation lesion arising from the left kidney is again noted and is nonspecific but might represent a proteinaceous cyst. Abdominal aorta is normal in caliber without evidence of an aneurysm or dissection. Origins of the celiac axis, superior mesenteric artery, renal arteries, and inferior mesenteric artery demonstrate no significant stenosis or occlusion. Superior and inferior mesenteric veins, splenic vein, and portal vein are patent. There is no pneumatosis. Bone windows demonstrate no acute abnormalities. Degenerative changes are noted within the hips and visualized spine. IMPRESSION: 1. No significant interval change in the previously noted proctocolitis. This involves the distal descending colon, sigmoid colon, and rectum. Small amount of free fluid is again noted within the left paracolic gutter and pelvis. No abscess or free air. No evidence of a bowel obstruction. 2. Large amount of stool within the ascending and proximal transverse colon. 3. Cholelithiasis is again noted. 4. Additional findings are detailed above. This document has been electronically signed by: Jose C Rodriguez M.D. on 10/30/2024 01:26:04
--- NOTE | ~2024-10-29 | CT_ITS ---
CLINICAL HISTORY: dizziness, fall, +AC CT head without contrast Comparison: CT/SR - CT HEAD/BRAIN WO IV CON - 11/24/23 13:01 EDT Findings: Scattered subcortical and periventricular hypoattenuation, likely in keeping with chronic small vessel ischemic disease. Parenchymal volume loss with compensatory prominence of the ventricles and CSF spaces. No acute territorial infarction, intracranial hemorrhage, midline shift or hydrocephalus. Empty sella is demonstrated, nonspecific. Scattered lacunar infarcts throughout the supra tentorium. Air-fluid level in the left maxillary sinus suggesting acute sinusitis. The orbits are within normal limits. There is no acute fracture. IMPRESSION: 1. No acute intracranial abnormality. 2. Additional findings as described. This document has been electronically signed by: Marquis James MD on 10/29/2024 18:54:52
--- NOTE | 2024-10-29 17:28 | ED.GENADULT ---
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 Patient states she was seen in the emergency room last week, diagnosed with colitis and started on Augmentin. Patient states she continues to have diarrhea, and has developed right lower abdominal discomfort. Associated nausea vomiting, denies fever. Patient states she has felt weak and dizzy, she sustained 2 falls today. Denies head strike no loss of consciousness. Denies neck pain. Related Data Home Medications ?Medication ?Instructions ?Recorded ?Confirmed apixaban 5 mg tablet (Eliquis) 5 mg PO BID 05/05/20 06/20/24 Held on 05/11/24. Instructions: Resume on 05/14/24. flecainide 50 mg tablet 75 mg PO BID 09/09/22 06/20/24 rosuvastatin 5 mg tablet 5 mg PO TUTH 05/07/24 06/20/24 diltiazem HCl 240 mg 240 mg PO DAILY 07/16/24 tablet,extended release 24 hr Previous Rx's ?Medication ?Instructions ?Recorded hydrocortisone 2.5 % topical cream 1 appl MI BID-QID PRN hemorrhoids 11/28/23 with perineal applicator #30 grams (Proctosol HC) pramoxine 1 % topical foam 1 appl MI BID PRN hemorrhoids #15 05/11/24 (Proctofoam) grams levothyroxine 75 mcg tablet 75 mcg PO DAILY #90 caps 05/21/24 diazepam 2 mg tablet 2 mg PO .15 min prior to PET PRN 06/12/24 sleep #1 tab mesalamine 500 mg capsule,extended 1,000 mg (2 x 500 mg) PO BID #90 07/16/24 release (Pentasa) caps omeprazole 20 mg capsule,delayed 20 mg PO BID@0630,1630 #90 caps 07/16/24 release amoxicillin 875 mg-potassium 1 tab PO BID 7 days #14 tabs 10/25/24 clavulanate 125 mg tablet Allergies Allergy/AdvReac Type Severity Reaction Status Date / Time tetracycline (TETRACYCLINE) Allergy Unknown ITCHINESS, Verified 10/29/24 17:39 rash nitrofurantoin Allergy Swelling Verified 10/29/24 17:39 atorvastatin (Lipitor) AdvReac Unknown Muscle pain Verified 10/29/24 17:39 bactrim Allergy Unknown Elevated Uncoded 07/16/24 10:27 LFTs/Itching/Nausea fentanyl AdvReac Severe Unconscious Uncoded 07/16/24 10:27 Review of Systems Review of Systems: Yes all other systems are reviewed and are negative Constitutional: Constitutional: Reports fatigue, Denies fever(s), Denies headache(s), Reports malaise, Reports weakness and Denies weight loss ENT: Reports dizziness and Denies headache(s) Cardiovascular: Cardiovascular: Denies chest pain and Denies dyspnea Respiratory: Respiratory: Denies dyspnea Gastrointestinal: Gastrointestinal: Reports abdominal pain, Reports diarrhea, Reports nausea and Reports vomiting Neurologic: Reports dizziness, Denies headache(s) and Reports weakness Endocrine: Endocrine: Reports fatigue PMFSH Past Medical History Attestation statement: The following information was validated with the patient. Medical History History of diverticulitis Anal squamous cell carcinoma Hemorrhoids Current use of senior living anticoagulation External hemorrhoids Hyperuricemia Vitamin D deficiency Impaired fasting glucose Inflammatory arthritis Multinodular thyroid Mixed stress and urge urinary incontinence Dyslipidemia Paroxysmal atrial fibrillation Chronic kidney disease, stage 3 Osteoporosis COPD (chronic obstructive pulmonary disease) Acquired hypothyroidism Surgical History Hx of colonoscopy S/P partial hysterectomy History of section Family History Family History Father AAA (abdominal aortic aneurysm) CVA (cerebral vascular accident) Mother Diabetes mellitus HTN (hypertension) Gallbladder cancer Sister Diabetes mellitus Son Substance use disorder Son Substance use disorder Social History Social History Household Members: Children Housing: Other Housing Other:: [employer]lex Do you presently have visiting nurse or other home services: No Alcohol intake: current Alcohol intake frequency: does not drink Comment: steady on feet in room Patient Tobacco Use Status: Former Tobacco user Tobacco use type: Cigarette Years Smoked: 20 years Smoked in Last 30 Days: No e-Cigarette/Vaping Use: Never Used Second Hand Smoke Exposure: No Use of substances other than those prescribed or required for medical reasons: No Substance Use Type: Marijuana Advance Directives: Yes Advance Directives on File: Yes Advance Directives Date on File: 05/30/20 service: No Current occupational status: retired Gender identity: Female Cognitive needs: No Hearing needs: No Vision needs: Yes Physical Exam ED Vital Signs: Vital Signs - 24 hr 10/29/24 17:29 10/29/24 21:13 10/29/24 22:36 Temperature 97.4 F 97.6 F 98.6 F Pulse Rate 94 99 88 Respiratory Rate 16 16 16 Blood Pressure 122/59 L 145/100 H 139/56 L Pulse Oximetry 97 95 97 Oxygen Delivery Method Room Air Room Air Room Air 10/29/24 23:03 10/29/24 23:04 10/29/24 23:05 Temperature Pulse Rate 89 98 106 H Respiratory Rate Blood Pressure 137/66 128/69 140/74 H Pulse Oximetry Oxygen Delivery Method 10/29/24 23:12 10/29/24 23:53 Temperature 97.5 F Pulse Rate 89 Respiratory Rate 16 16 Blood Pressure 112/48 L Pulse Oximetry 93 Oxygen Delivery Method Room Air BMI result Body Mass Index 22.5 Const Other: Alert well-appearing, no sign of head trauma on exam Orientation/consciousness: patient oriented x3 Neck Other: No midline tenderness Resp Effort & Inspection: normal respiratory effort Cardio Other: Normal peripheral perfusion GI Other: Abdomen is soft, distended, mild to moderate tenderness across lower abdomen right greater than left with mild involuntary guarding Skin Other: Warm dry no rash, skin tears noted bilateral elbows with developing ecchymosis Neuro Other: Slow gait, uses a walker General: patient oriented x3, no focal motor deficits and CN's II-XI intact bilaterally Psych Other: Cooperative Course Course Course Narrative: This is an RME performed by Rossi Zapata CNP: Additional HPI, ROS, PE not included below will be deferred to primary provider. Patient is an 79-year-old female who presents emergency department for evaluation of right lower quadrant abdominal pain nausea vomiting and diarrhea. Reports that on 11/11/2024 she was evaluated in the emergency department diagnosed with colitis and was prescribed Augmentin which she is still taking, was previously having left lower quadrant pain. This has since resolved but over the past few days now has right lower quadrant pain. She is not able to tolerate any solids without vomiting. Denies fevers but endorses chills. She has been experiencing dizziness, had 2 falls today, one of which she was able to catch herself on the wall, the 2nd she was sitting on the toilet and she fell forward landing onto bilateral hands and elbows without overt head strike denies LOC, she is however anticoagulated on Eliquis, additionally complaining of bilateral elbow pain with skin tears. Two months ago underwent radiation chemotherapy for anal cancer. Plan: serum labs, urinalysis, head CT, XR bilateral elbows, orthostatic vital signs Medications Administered Discontinued Medications Generic Name Dose Route Start Last Admin Trade Name Gaurangq PRN Reason Stop Dose Admin Sodium Chloride 500 mls @ 500 mls/hr 10/29/24 22:21 10/30/24 02:08 Ns IV 10/29/24 23:20 Infused .Q1H ONE Infusion Piperacillin Sod/Tazobactam 50 mls @ 100 mls/hr 10/30/24 02:31 10/30/24 03:30 Sod 3.375 gm/ Sodium Chloride IV 10/30/24 03:00 100 mls/hr ONCE ONE Administration Iohexol 85 ml 10/29/24 23:24 10/29/24 23:26 Iohexol 350 Mg/Ml 100 Ml Infus..Btl IV 10/29/24 23:25 85 ml ONCE ONE Administration Morphine Sulfate 2 mg 10/29/24 22:21 10/29/24 23:12 Morphine Sulfate 4 Mg/Ml Cartridge IVPUSH 10/29/24 22:22 2 mg ONCE ONE Administration Protocol Ondansetron HCl 4 mg 10/29/24 22:21 10/29/24 23:13 Ondansetron Hcl 4 Mg/2 Ml Vial IVPUSH 10/29/24 22:22 4 mg ONCE ONE Administration Medical Decision Making Medical Decision Making MDM Narrative: 79-year-old female with a history of 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 Patient states she was seen in the emergency room last week, diagnosed with colitis and started on Augmentin. Patient states she continues to have diarrhea, and has developed right lower abdominal discomfort. Associated nausea vomiting, denies fever. Patient states she has felt weak and dizzy, she sustained 2 falls today. Denies head strike no loss of consciousness. Denies neck pain. Problem: Anal cancer, radiation therapy, age, chronic kidney disease, anticoagulation History: Per patient I have considered the following differential diagnoses: Radiation induced colitis, sigmoid diverticulitis, C diff, traveler's diarrhea Plan: The patient has a bounce back, she has known colitis, I am repeating the scan. We will give morphine Zofran and IV fluid. Screening labs were already obtained, she has a worsening leukocytosis, given concurrent nausea vomiting I foresee her being admitted. In regard to the fall, a CT of the head was obtained it is negative. Labs: Leukocytosis of 14.3, left shift noted, not anemic, no electrolyte abnormality CT brain:MPRESSION: 1. No acute intracranial abnormality. 2. Additional findings as described. CT abdomen and pelvis:IMPRESSION: 1. No significant interval change in the previously noted proctocolitis. This involves the distal descending colon, sigmoid colon, and rectum. Small amount of free fluid is again noted within the left paracolic gutter and pelvis. No abscess or free air. No evidence of a bowel obstruction. 2. Large amount of stool within the ascending and proximal transverse colon. 3. Cholelithiasis is again noted. 4. Additional findings are detailed above. Lab Data 10/29/24 17:58 10/29/24 17:58 Labs: Lab Results 10/29/24 10/30/24 Range/Units 17:58 03:07 WBC 14.3 H (4.8-10.8) X10*3/uL RBC 3.63 L (4.20-5.50) X10*6/uL Hgb 11.9 L (12.0-16.0) g/dl Hct 35.9 L (37.0-47.0) % MCV 98.9 H (80.0-98.0) fL MCH 32.8 (27.0-33.0) pg MCHC 33.1 (31.0-35.0) g/dl RDW 15.7 (11.0-16.0) % Plt Count 264 D (160-400) X10*3/uL MPV 8.6 L (9.4-12.3) fL Immature Gran % (Auto) 0.6 H (0.0-0.4) % Neut % (Auto) 86.2 H (45-73) % Lymph % (Auto) 4.9 L (20-40) % [place] % (Auto) 7.2 (2-11) % Eos % (Auto) 0.5 (0-4) % Baso % (Auto) 0.6 (0-2) % Lymph # (Auto) 0.7 L (1.2-4.9) X10*3/uL [place] # (Auto) 1.0 (0.1-1.2) X10*3/uL Eos # (Auto) 0.1 (0.0-0.4) X10*3/uL Baso # (Auto) 0.1 (0.0-0.2) X10*3/uL Abs Immat Gran (auto) 0.09 H (0.00-0.03) X10*3/uL Absolute Neuts (auto) 12.3 H (2.0-8.3) x10*3/uL Absolute Nucleated RBC 0.000 (0.0-0.012) X10*3/uL Nucleated RBC % (auto) 0.0 (0.0-0.2) /100WBC PT 27.2 H D (10.9-12.4) SEC INR 2.4 H (0.9-1.1) Sodium 134 L (135-145) mmol/L Potassium 4.2 (3.3-5.1) mmol/L Chloride 104 (96-108) mmol/L Carbon Dioxide 22 (22-29) mmol/L Anion Gap 12 (12-20) BUN 15 (9-16) mg/dL Creatinine 0.94 (0.5-1.4) mg/dL Estim Creat Clear Calc 37.7 Estimated GFR 57 Random Glucose 112 (60-115) mg/dL Lactic Acid 1.6 1.9 (0.5-2.0) mmol/L Calcium 8.8 (8.4-10.2) mg/dL Magnesium 2.1 (1.6-2.6) mg/dL Total Bilirubin 0.5 (0.0-1.0) mg/dL AST 13 (5-31) U/L ALT < 6 (0-31) U/L Alkaline Phosphatase 101 (39-117) U/L Total Protein 7.1 (6.5-8.0) g/dL Albumin 3.1 L (3.5-5.0) g/dL Lipase < 4 L (8-78) U/L Discharge Plan Discharge Clinical Impression: Proctocolitis, Weakness, Fall at home Patient Disposition: Admitted As Inpatient Print Language: Yakut
[2024-10-29 18:15] LABS: MANUAL DIFF FLAG NO
[2024-10-29 18:29] LABS: Hematocrit 35.9 % (37.0-47.0); Hemoglobin 11.9 g/dl (12.0-16.0); Imm Gran Abs Auto 0.09 X10*3/uL (0.00-0.03); Imm Gran Pct Auto 0.6 % (0.0-0.4); Lymphocytes Absolute Auto 0.7 X10*3/uL (1.2-4.9); Mean Corpuscular HGB Conc 33.1 g/dl (31.0-35.0); Mean Corpuscular Hemoglobin 32.8 pg (27.0-33.0); Mean Corpuscular Volume 98.9 fL (80.0-98.0); NRBC Abs Auto 0.000 X10*3/uL (0.0-0.012); NRBC Pct Auto 0.0 /100WBC (0.0-0.2); Platelet Count 264 X10*3/uL (160-400); Red Blood Count 3.63 X10*6/uL (4.20-5.50); White Blood Count 14.3 X10*3/uL (4.8-10.8)
[2024-10-29 18:33] LABS: Alanine Aminotransferase < 6 U/L (0-31); Albumin Level 3.1 g/dL (3.5-5.0); Alkaline Phosphatase 101 U/L (39-117); Anion Gap 12 (12-20); Aspartate Amino Transferase 13 U/L (5-31); Blood Urea Nitrogen 15 mg/dL (9-16); Calcium 8.8 mg/dL (8.4-10.2); Carbon Dioxide 22 mmol/L (22-29); Chloride 104 mmol/L (96-108); Creatinine Clr Calc Pharmacy 37.7; Estimated Glomerular Filt Rate 57; Lipase < 4 U/L (8-78); Magnesium 2.1 mg/dL (1.6-2.6); Potassium 4.2 mmol/L (3.3-5.1); Sodium 134 mmol/L (135-145); Total Protein 7.1 g/dL (6.5-8.0)
[2024-10-29 18:45] LABS: INTERNATIONAL NORM RATIO 2.4 (0.9-1.1); Prothrombin Time 27.2 SEC (10.9-12.4)
--- NOTE | 2024-10-29 23:07 | PC.NURSE ---
RN performed bed side swallow eval. PT passed. RN informed provider
[2024-10-29] MEDS: iohexoL 350 MG/ML 100 ML INFUS..BTL 85 ML IV (23:26)
--- NOTE | 2024-10-30 03:34 | MHC.EDTECH ---
Pt assisted to bedside commode for bm. Pt is having diarrhea. RN aware.
--- NOTE | 2024-10-30 03:45 | P.HPHOSP_ITS ---
History of Present Illness Date of Service: 10/30/24 Attending physician on admission: Gilberto Baires Chief Complaint: Diarrhea Raquel Nicholas is 79 years old woman with past medical history significant for adenosquamous cell carcinoma status post radiation, hypothyroidism, paroxysmal atrial fibrillation on apixaban, GERD and hyperlipidemia presents to the emergency department complaining of diarrhea over the last month. Started after she completed her radiation. She also complained of associated left lower quadrant pain and abdominal distention. She also complained of nausea and vomiting. She noted that she has been urinating less frequently. She denied chest pain, cough, shortness on breath, headache or fevers. She was evaluated in the ED recently and has been taking it Augmentin. In the ED, she was found to have stable vital signs. Blood workup showed leukocytosis of 14.3. There is no lactic acidosis. Hemoglobin is 11.9 and platelets 264. INR is 2.4. Sodium is 134 but there is no other electrolyte imbalances. Renal function and LFTs are normal. Lipase is less than 4. Abdominal pelvis CT scan showed no significant interval change in the previously noted proctocolitis. There are no abscesses, free air or obstructions. It did showed cholelithiasis. ED tx: NS 500 mL, Zofran 4 mg IV, morphine 2 mg IV, Zosyn 3.375 g IV Review of Systems 2 Review of Systems: All 12 systems were reviewed and normal except as noted in HPI. [facility] Medical History History of diverticulitis Anal squamous cell carcinoma Hemorrhoids Current use of assisted anticoagulation External hemorrhoids Hyperuricemia Vitamin D deficiency Impaired fasting glucose Inflammatory arthritis Multinodular thyroid Mixed stress and urge urinary incontinence Dyslipidemia Paroxysmal atrial fibrillation Chronic kidney disease, stage 3 Osteoporosis COPD (chronic obstructive pulmonary disease) Acquired hypothyroidism Family History Father AAA (abdominal aortic aneurysm) CVA (cerebral vascular accident) Mother Diabetes mellitus HTN (hypertension) Gallbladder cancer Sister Diabetes mellitus Son Substance use disorder Son Substance use disorder Surgical History Hx of colonoscopy S/P partial hysterectomy History of section Social History Household Members: Children Housing: Other Housing Other:: [employer]lex Do you presently have visiting nurse or other home services: No Alcohol intake: current Alcohol intake frequency: does not drink Comment: steady on feet in room Patient Tobacco Use Status: Former Tobacco user Tobacco use type: Cigarette Years Smoked: 20 years Smoked in Last 30 Days: No e-Cigarette/Vaping Use: Never Used Second Hand Smoke Exposure: No Use of substances other than those prescribed or required for medical reasons: No Substance Use Type: Marijuana Advance Directives: Yes Advance Directives on File: Yes Advance Directives Date on File: 05/30/20 service: No Current occupational status: retired Gender identity: Female Cognitive needs: No Hearing needs: No Vision needs: Yes Meds Allergies Allergy/AdvReac Type Severity Reaction Status Date / Time tetracycline (TETRACYCLINE) Allergy Unknown ITCHINESS, Verified 10/29/24 17:39 rash nitrofurantoin Allergy Swelling Verified 10/29/24 17:39 atorvastatin (Lipitor) AdvReac Unknown Muscle pain Verified 10/29/24 17:39 bactrim Allergy Unknown Elevated Uncoded 07/16/24 10:27 LFTs/Itching/Nausea fentanyl AdvReac Severe Unconscious Uncoded 07/16/24 10:27 Active Medications: Current Medications Acetaminophen (Acetaminophen 325 Mg Tablet) 975 mg PO Q6H PRN PRN Reason: Pain, Mild 1-3,fever,headache Calcium Carbonate (Calcium Carbonate 750 Mg Tab.Chew) 750 mg PO Q4H PRN PRN Reason: Heartburn Enoxaparin Sodium (Enoxaparin Sodium 40 Mg/0.4 Ml Syringe) 40 mg SUBCUT Q24H BARBARA Melatonin (Melatonin 3 Mg Tablet) 6 mg PO BEDTIME PRN PRN Reason: Insomnia Morphine Sulfate (Morphine Sulfate 2 Mg/Ml Cartridge) 2 mg IVPUSH Q3H PRN; Protocol PRN Reason: abdominal pain Ondansetron HCl (Ondansetron Hcl 4 Mg/2 Ml Vial) 4 mg IVPUSH Q8H PRN PRN Reason: Nausea and Vomiting Sodium Chloride (0.9 % Sodium Chloride Flush 3 Ml Syringe) 3 ml IVFLUSH QSHIFT [facility] Home Medications ?Medication ?Instructions ?Recorded ?Confirmed ?Last Taken ?Type apixaban 5 mg tablet (Eliquis) 5 mg PO BID 05/05/2005/07/24 History Held on 05/11/24. Instructions: Resume on 05/14/24. flecainide 50 mg tablet 75 mg PO BID 09/09/2205/07/24 History rosuvastatin 5 mg tablet 5 mg PO TUTH 05/07/2405/03/24 History diltiazem HCl 240 mg 240 mg PO DAILY 07/16/24 Un known History tablet,extended release 24 hr Physical Exam 2 Vital Signs and Narrative: Vital Signs: Last Vital Signs Temp 97.5 F 10/29/24 23:53 Pulse 89 10/29/24 23:53 Resp 16 10/29/24 23:53 BP 112/48 L 10/29/24 23:53 Pulse Ox 93 10/29/24 23:53 O2 Del Method Room Air 10/29/24 23:53 BMI result Body Mass Index 22.5 Constitutional - Awake and Alert, No apparent distress. Pleasant. Cooperative. HEENT - PER, EOMI. Dry oral mucosa. Heart - RRR, No murmurs Lungs - Normal lung expansion, Normal respiratory effort, No respiratory distress, CTA bilaterally Abdomen - Disteneded, increased bowel sounds, LLQ tenderness to palpation, no rebound, no guarding. Extremities - no calf tenderness bilaterally, no swelling Musculoskeletal - Normal inspection, normal ROM Skin - Warm/Dry Neurological - Alert & oriented x3. Moving all extremities spontaneously. Normal speech. Psychological - Appropriate affect Results Labs 10/29/24 17:58 10/29/24 17:58 Labs: Laboratory Results - last 24 hr 10/29/24 10/30/24 17:58 03:07 MCV 98.9 H MCH 32.8 MCHC 33.1 RDW 15.7 Plt Count 264 D MPV 8.6 L Immature Gran % (Auto) 0.6 H Neut % (Auto) 86.2 H Lymph % (Auto) 4.9 L [place] % (Auto) 7.2 Eos % (Auto) 0.5 Baso % (Auto) 0.6 Lymph # (Auto) 0.7 L [place] # (Auto) 1.0 Eos # (Auto) 0.1 Baso # (Auto) 0.1 Abs Immat Gran (auto) 0.09 H Absolute Neuts (auto) 12.3 H Absolute Nucleated RBC 0.000 Nucleated RBC % (auto) 0.0 PT 27.2 H D INR 2.4 H Anion Gap 12 Estim Creat Clear Calc 37.7 Estimated GFR 57 Random Glucose 112 Lactic Acid 1.6 1.9 Calcium 8.8 Magnesium 2.1 Total Bilirubin 0.5 AST 13 ALT < 6 Alkaline Phosphatase 101 Total Protein 7.1 Albumin 3.1 L Lipase < 4 L Assessment and Plan (1) Paroxysmal atrial fibrillation: Status: Acute (2) Proctocolitis: Status: Acute Plan Raquel Nicholas is 79 y/o woman with PMHx significant for adenosquamous cell carcinoma status post radiation admitted with: * Protocolitis, failed outpatient treatment. Admit to hospitalist service. Continue empiric IV antibiotic therapy with Zosyn. Check C diff. Gentle hydration. * Paroxysmal atrial fibrillation. Continue flecainide, diltiazem and Eliquis. * Hypothyroidism. Continue levothyroxine. * GERD. Continue omeprazole. * COPD. Albuterol as needed. * Essential hypertension. On diltiazem. * Chronic kidney disease, stage 3A. Continue to monitor. * Hyperlipidemia. Continue statin. Med rec pending. DVT prophylaxis: Eliquis Code status: Full Patient will need hospitalization for at least 2 midnights for pancolitis treatment with IV antibiotic therapy due to failed outpatient treatment. Quality Stroke Does the patient have a stroke diagnosis?: No VTE Prior VTE?: No VTE Risk Level:: Medical - moderate - high VTE Device Contraindication: N/A - Device Ordered VTE Drug Contraindication: N/A - Med Ordered
[2024-10-30] MEDS: Lactated Ringers 1,000 ML 100 ML IVCONT (05:04)
[2024-10-30 06:53] VITALS: BP 127/56; PULSE 78; RESP 16; O2SAT 96
[2024-10-30 08:23] VITALS: BP 116/48; PULSE 81; RESP 18; TEMP 36.2; O2SAT 96
[2024-10-30 08:35] VITALS: BMI 23.1
[2024-10-30 08:52] VITALS: BP 123/59; PULSE 81; RESP 16; TEMP 36; O2SAT 96
--- NOTE | 2024-10-30 09:02 | P.EN_ITS ---
Event Note Date of Service: 10/30/24 Event Note: 79 y/o woman with PMHx significant for adenosquamous cell carcinoma status post radiation admitted with: Protocolitis failed outpatient treatment. Continue empiric IV antibiotic therapy with Zosyn. C diff negative Gentle hydration. Gastroenterology consultation Paroxysmal atrial fibrillation. Continue flecainide, diltiazem and Eliquis. Hypothyroidism. Continue levothyroxine. GERD. Continue omeprazole. COPD. Albuterol as needed. Essential hypertension. On diltiazem. Chronic kidney disease, stage 3A. Continue to monitor. Hyperlipidemia. Continue statin. DVT prophylaxis: Eliqutheo Code status: Medical Pathologist Spent With Patient Time: Total time managing care of this patient today ____ minutes.
[2024-10-30 09:04] LABS: MANUAL DIFF FLAG NO
[2024-10-30 09:06] LABS: Hematocrit 35.8 % (37.0-47.0); Hemoglobin 12.0 g/dl (12.0-16.0); Imm Gran Abs Auto 0.06 X10*3/uL (0.00-0.03); Imm Gran Pct Auto 0.5 % (0.0-0.4); Lymphocytes Absolute Auto 0.6 X10*3/uL (1.2-4.9); Mean Corpuscular HGB Conc 33.5 g/dl (31.0-35.0); Mean Corpuscular Hemoglobin 33.4 pg (27.0-33.0); Mean Corpuscular Volume 99.7 fL (80.0-98.0); NRBC Abs Auto 0.000 X10*3/uL (0.0-0.012); NRBC Pct Auto 0.0 /100WBC (0.0-0.2); Platelet Count 226 X10*3/uL (160-400); Red Blood Count 3.59 X10*6/uL (4.20-5.50); White Blood Count 12.1 X10*3/uL (4.8-10.8)
[2024-10-30 09:10] VITALS: BMI 23.1
[2024-10-30 09:33] LABS: Anion Gap 11 (12-20); Blood Urea Nitrogen 14 mg/dL (9-16); Calcium 8.5 mg/dL (8.4-10.2); Carbon Dioxide 25 mmol/L (22-29); Chloride 102 mmol/L (96-108); Creatinine Clr Calc Pharmacy 38.1; Estimated Glomerular Filt Rate 58; Magnesium 2.0 mg/dL (1.6-2.6); Potassium 4.2 mmol/L (3.3-5.1); Sodium 134 mmol/L (135-145)
[2024-10-30 10:40] LABS: CDiff Gene PCR NEGATIVE (Negative)
--- NOTE | 2024-10-30 11:37 | PHA.MEDREC ---
Pharmacy Consult ? Medication Reconciliation Pharmacy has completed the medication reconciliation. Spoke to patient at bedside, she knew her home meds and confirmed them verbally with me. States she still takes tramadol 50mg daily as needed for pain.
--- NOTE | 2024-10-30 12:55 | P.CNGI_ITS ---
History of Present Illness Data of Consult Service Date: 10/30/24 Requesting physician: Marsha Lin Primary Care Provider: MD ELIOT Storm Reason for consult: Caceres colitis 79-year-old female with past medical history of paroxysmal atrial fibrillation on Eliquis, CKD stage 3, hypothyroidism, recently diagnosed anal cell anal squamous cell carcinoma on chemoradiation therapy, who presented to the hospital for persistent left lower quadrant pain and diarrhea. Patient was seen in the hospital earlier this year, EGD/colonoscopy suggestive of upper GI and Crohn colitis with granuloma. In addition, she was also noted to have a 3 cm anal verge mass that was later biopsy-proven to be poorly differentiated squamous cell carcinoma. She follows with This is an 79-year-old female with medical history of atrial fibrillation on Eliquis, CKD, recent diagnosis of anal squamous cell carcinoma status post radiation therapy, who presents with persistent diarrhea. She was seen in the hospital earlier this year for rectal bleeding with unintentional weight loss. EGD and colonoscopy 05/10/2024 (Dr. Chung): Gastritis 3 cm anal lesion, patchy colitis. Biopsies confirmed upper GI and Crohn's colitis with rectal involvement. Anal mass was biopsied - squamous cell carcinoma, poorly differentiated. She reports getting radiation therapy done through [facility], which was completed middle of August. Recalls that the diarrhea started after the first few sessions of radiation therapy, was reassured that this will resolve once the radiation therapy finishes. However, it has been ongoing for more than 6 weeks even after completion of XRT. She describes the stools as nonbloody, mucousy liquid bowel movements multiple times a day. With this, she also has focal the left lower quadrant pain with feeling of bloating. Has above, she has recent diagnosis of Crohn's disease, but reports not taking any medication for this. She was seen in the emergency room for this earlier last week as well. CT abdomen and pelvis shows left-sided colitis and proctitis. There is also fecal loading in the right side of the colon. Review of Systems 2 Review of Systems: Yes all other systems are reviewed and are negative [facility] Past Medical History Medical History History of diverticulitis Anal squamous cell carcinoma Hemorrhoids Current use of skilled nursing anticoagulation External hemorrhoids Hyperuricemia Vitamin D deficiency Impaired fasting glucose Inflammatory arthritis Multinodular thyroid Mixed stress and urge urinary incontinence Dyslipidemia Paroxysmal atrial fibrillation Chronic kidney disease, stage 3 Osteoporosis COPD (chronic obstructive pulmonary disease) Acquired hypothyroidism Family History Family History Father AAA (abdominal aortic aneurysm) CVA (cerebral vascular accident) Mother Diabetes mellitus HTN (hypertension) Gallbladder cancer Sister Diabetes mellitus Son Substance use disorder Son Substance use disorder Surgical History Surgical History Hx of colonoscopy S/P partial hysterectomy History of section Social History Social History Household Members: Children Housing: Condominium Housing Other:: Duplex Do you presently have visiting nurse or other home services: No Alcohol intake: current Alcohol intake frequency: does not drink Comment: steady on feet in room Patient Tobacco Use Status: Former Tobacco user Tobacco use type: Cigarette Years Smoked: 20 years Smoked in Last 30 Days: No e-Cigarette/Vaping Use: Never Used Patient Interested in Nicotine Replacement: No Patient Given Instructions on How to Stop Smoking: No Second Hand Smoke Exposure: No Use of substances other than those prescribed or required for medical reasons: No Substance Use Type: Marijuana Have you been hit, kicked, punched, or otherwise hurt by someone within the past year? If so, by whom?: No Do you feel safe in your current relationship?: No Current Relationship Is there a partner from a previous relationship who is making you feel unsafe now?: No Are you made to feel afraid or neglected: No Advance Directives: Yes Advance Directives on File: Yes Advance Directives Date on File: 05/30/20 Do you have a plan to hurt others: No Plan Recently lost weight without trying: Yes How much weight loss: 34pounds or more Eating poorly because of decreased appetite: Yes Nutrition screen score: 7 Nutrition Risks: Poor intake 0-25% >4 days Patient : No : No Poor oral hygiene: No service: No Current occupational status: retired Gender identity: Female Cognitive needs: No Hearing needs: No Vision needs: Yes Meds Allergies Allergy/AdvReac Type Severity Reaction Status Date / Time tetracycline (TETRACYCLINE) Allergy Unknown ITCHINESS, Verified 10/29/24 17:39 rash nitrofurantoin Allergy Swelling Verified 10/29/24 17:39 atorvastatin (Lipitor) AdvReac Unknown Muscle pain Verified 10/29/24 17:39 bactrim Allergy Unknown Elevated Uncoded 07/16/24 10:27 LFTs/Itching/Nausea fentanyl AdvReac Severe Unconscious Uncoded 07/16/24 10:27 Active Medications: Current Medications Acetaminophen (Acetaminophen 325 Mg Tablet) 975 mg PO Q6H PRN PRN Reason: Pain, Mild 1-3,fever,headache Last Admin: 10/30/24 12:48 Dose: 650 mg Albuterol Sulfate (Albuterol Sulfate (0.083%) 2.5 Mg/3 Ml Vial.Neb) 2.5 mg INHALE Q2H PRN PRN Reason: Shortness of Breath/Wheezing Calcium Carbonate (Calcium Carbonate 750 Mg Tab.Chew) 750 mg PO Q4H PRN PRN Reason: Heartburn Enoxaparin Sodium (Enoxaparin Sodium 40 Mg/0.4 Ml Syringe) 40 mg SUBCUT Q24H [facility] Last Admin: 10/30/24 09:14 Dose: 40 mg Piperacillin Sod/Tazobactam (Sod 3.375 gm/ Sodium Chloride) 50 mls @ 100 mls/hr IV Q6H [facility] Last Infusion: 10/30/24 09:58 Dose: Infused Lactated Ringer's (Lr) 1,000 mls @ 100 mls/hr IVCONT .Q10H [facility] Stop: 10/30/24 13:59 Last Admin: 10/30/24 05:04 Dose: 100 mls/hr Melatonin (Melatonin 3 Mg Tablet) 6 mg PO BEDTIME PRN PRN Reason: Insomnia Morphine Sulfate (Morphine Sulfate 2 Mg/Ml Cartridge) 2 mg IVPUSH Q3H PRN; Protocol PRN Reason: abdominal pain Ondansetron HCl (Ondansetron Hcl 4 Mg/2 Ml Vial) 4 mg IVPUSH Q8H PRN PRN Reason: Nausea and Vomiting Sodium Chloride (0.9 % Sodium Chloride Flush 3 Ml Syringe) 3 ml IVFLUSH QSHIFT [facility] Last Admin: 10/30/24 08:20 Dose: Not Given Home Medications ?Medication ?Instructions ?Recorded ?Confirmed ?Last Taken ?Type apixaban 5 mg tablet (Eliquis) 5 mg PO BID 05/05/2010/29/24 History Held on 05/11/24. Instructions: Resume on 05/14/24. flecainide 50 mg tablet 75 mg PO BID 09/09/2210/29/24 History diltiazem HCl 240 mg 240 mg PO DAILY 07/16/2412/1710/29/24 History tablet,extended release 24 hr tramadol 50 mg tablet 50 mg PO DAILY PRN pain 12/1710/30/24 10/29/24 History Physical Exam 2 Vital Signs: Vital Signs: Last Vital Signs Temp 96.8 F 10/30/24 08:52 Pulse 81 10/30/24 08:52 Resp 16 10/30/24 08:52 BP 123/59 L 10/30/24 08:52 Pulse Ox 96 10/30/24 08:52 O2 Del Method Room Air 10/30/24 08:52 BMI result Body Mass Index 23.1 Elderly female No acute distress Nonicteric abd soft, mildly distended, tenderness in LLQ No overt resp distress No MARTY Results Labs 10/30/24 08:58 10/30/24 08:58 Labs: Short CBC 10/29/24 10/30/24 Range/Units 17:58 08:58 WBC 14.3 H 12.1 H (4.8-10.8) X10*3/uL Hgb 11.9 L 12.0 (12.0-16.0) g/dl Hct 35.9 L 35.8 L (37.0-47.0) % Plt Count 264 D 226 (160-400) X10*3/uL BMP 10/29/24 10/30/24 17:58 08:58 Sodium 134 L 134 L Potassium 4.2 4.2 Chloride 104 102 Carbon Dioxide 22 25 BUN 15 14 Creatinine 0.94 0.93 Calcium 8.8 8.5 Liver Function 10/29/24 Range/Units 17:58 Total Bilirubin 0.5 (0.0-1.0) mg/dL AST 13 (5-31) U/L ALT < 6 (0-31) U/L Alkaline Phosphatase 101 (39-117) U/L Albumin 3.1 L (3.5-5.0) g/dL Assessment and Plan (1) Proctocolitis: Status: Acute (2) Crohn's disease: Status: Acute (3) Anal squamous cell carcinoma: Status: Acute (4) History of radiation exposure: Status: Acute (5) Paroxysmal atrial fibrillation: Status: Acute Plan Differentials include acute radiation proctitis versus Crohn's flare-up, since patient not on any therapy currently. Will need luminal evaluation with biopsies to differentiate. Other differentials include infectious colitis. Plan: -check CRP, GI PCR, C diff, fecal calprotectin -flexible sigmoidoscopy tentatively booked for 11/01. Please hold eliquis -CLD tmrw. NPO after MN for 11/01. -Please AVOID anti diarrheals for now Thank you for allowing me to participate in her care. Please do not hesitate to reach out for any questions or concerns. Procedures Date of Service Date of Service: 10/30/24
[2024-10-30] MEDS: 0.9 % Sodium Chloride Flush 3 ML SYRINGE IVFLUSH ×2 (14:39→20:50)
--- NOTE | 2024-10-30 15:27 | MHC.CM.PN ---
IMM 10/30/24 From home with Pancolitis. She lives in a 2 family house. She lives on the 1st floor with one of her 2 sons. Her other son lives upstairs. She does not use the shower. She has been sponge bathing. She has a walker, no other DME in the home. She requested MOW. A referral has been sent to [facility] via [facility]. DP Pending a PT eval. She is interested in STR. Preferences obtained, referrals have been sent. She will transport via BLS if dispo is STR.
[2024-10-30 16:00] VITALS: BP 110/52; PULSE 80; RESP 16; TEMP 36.2; O2SAT 95
[2024-10-30 18:34] LABS: Appearance Urine Clear; Glucose Urine UA Negative (Negative); PH 5.5 (5.0-9.0); Specific Gravity - Urine >= 1.030 (1.005-1.025); UMIC TRIGGER UACC YES
[2024-10-30 18:48] LABS: UACC Culture Trigger YES
[2024-10-30 19:36] VITALS: BP 113/54; PULSE 82; RESP 18; TEMP 36.1; O2SAT 94
[2024-10-31 03:34] VITALS: BP 124/60; PULSE 80; RESP 16; TEMP 36.8; O2SAT 93
[2024-10-31 07:34] VITALS: BP 110/55; PULSE 90; RESP 16; TEMP 36.8; O2SAT 94
--- NOTE | 2024-10-31 08:34 | P.PNIM_ITS ---
Subjective Subjective Date of Service: 10/31/24 Review of Systems Follow up Colitis no pain, nausea, vomiting or diarrhea Physical Exam 2 Vital Signs: Vital Signs: Last Vital Signs Temp 98.2 F 10/31/24 07:34 Pulse 90 10/31/24 07:34 Resp 16 10/31/24 07:34 BP 110/55 L 10/31/24 07:34 Pulse Ox 94 10/31/24 07:34 O2 Del Method Room Air 10/31/24 07:34 BMI result Body Mass Index 23.1 Appearing in no acute distress lung sounds are clear to auscultation heart regular rate rhythm, clear S1, S2 positive bowel sounds, abdomen is soft, nontender neuro patient is alert x3, no focal deficits Objective Data Active Medications Acetaminophen (Acetaminophen 325 Mg Tablet) 975 mg PO Q6H PRN PRN Reason: Pain, Mild 1-3,fever,headache Last Admin: 10/30/24 12:48 Dose: 650 mg Documented By: NATHAN Comments: pt refused 975mg and only took 650mg Albuterol Sulfate (Albuterol Sulfate (0.083%) 2.5 Mg/3 Ml Vial.Neb) 2.5 mg INHALE Q2H PRN PRN Reason: Shortness of Breath/Wheezing Apixaban (Apixaban 5 Mg Tablet) 5 mg PO BID [facility] Last Admin: 10/30/24 20:46 Dose: 5 mg Documented By: NEGIN Calcium Carbonate (Calcium Carbonate 750 Mg Tab.Chew) 750 mg PO Q4H PRN PRN Reason: Heartburn Diltiazem HCl (Diltiazem Hcl Cd 240 Mg Cap.Er.Deg) 240 mg PO DAILY [facility]; Protocol Enoxaparin Sodium (Enoxaparin Sodium 40 Mg/0.4 Ml Syringe) 40 mg SUBCUT Q24H [facility] Last Admin: 10/30/24 09:14 Dose: 40 mg Documented By: NATHAN Flecainide Acetate (Flecainide Acetate 50 Mg Tablet) 75 mg PO BID [facility] Last Admin: 10/30/24 20:46 Dose: 75 mg Documented By: NEGIN Piperacillin Sod/Tazobactam (Sod 3.375 gm/ Sodium Chloride) 50 mls @ 100 mls/hr IV Q6H [facility] Last Infusion: 10/31/24 03:41 Dose: Infused Documented By: NEGIN Levothyroxine Sodium (Levothyroxine Sodium 75 Mcg Tablet) 75 mcg PO DAILY@0600 [facility] Last Admin: 10/31/24 05:32 Dose: 75 mcg Documented By: NEGIN Melatonin (Melatonin 3 Mg Tablet) 6 mg PO BEDTIME PRN PRN Reason: Insomnia Morphine Sulfate (Morphine Sulfate 2 Mg/Ml Cartridge) 2 mg IVPUSH Q3H PRN; Protocol PRN Reason: abdominal pain Ondansetron HCl (Ondansetron Hcl 4 Mg/2 Ml Vial) 4 mg IVPUSH Q8H PRN PRN Reason: Nausea and Vomiting Sodium Chloride (0.9 % Sodium Chloride Flush 3 Ml Syringe) 3 ml IVFLUSH QSHIFT [facility] Last Admin: 10/30/24 20:50 Dose: 3 ml Documented By: NEGIN Labs 10/30/24 08:58 10/30/24 08:58 Labs: Laboratory Results - last 24 hr 10/30/24 10/30/24 10/30/24 08:58 13:50 18:26 MCV 99.7 H MCH 33.4 H MCHC 33.5 RDW 15.9 Plt Count 226 MPV 8.5 L Immature Gran % (Auto) 0.5 H Neut % (Auto) 82.7 H Lymph % (Auto) 5.0 L [place] % (Auto) 8.8 Eos % (Auto) 2.3 Baso % (Auto) 0.7 Lymph # (Auto) 0.6 L [place] # (Auto) 1.1 Eos # (Auto) 0.3 Baso # (Auto) 0.1 Abs Immat Gran (auto) 0.06 H Absolute Neuts (auto) 10.0 H Absolute Nucleated RBC 0.000 Nucleated RBC % (auto) 0.0 Anion Gap 11 L Estim Creat Clear Calc 38.1 Estimated GFR 58 Random Glucose 106 Calcium 8.5 Magnesium 2.0 C-Reactive Protein 15.46 H Urine Color Yellow Urine Appearance Clear Urine pH 5.5 Ur Specific [place] >= 1.030 H Urine Protein 30 (1+) H Urine Glucose (UA) Negative Urine Ketones Trace Urine Blood Negative Urine Nitrite Negative Ur Leukocyte Esterase Small (1+) H Urine RBC 0-2 Urine WBC 21-50 H Ur Squamous Epith Cells 0-2 Urine Bacteria None Seen Hyaline Casts 0-2 C. difficile Tox B Gene 10/30/24 Unknown MCV MCH MCHC RDW Plt Count MPV Immature Gran % (Auto) Neut % (Auto) Lymph % (Auto) [place] % (Auto) Eos % (Auto) Baso % (Auto) Lymph # (Auto) [place] # (Auto) Eos # (Auto) Baso # (Auto) Abs Immat Gran (auto) Absolute Neuts (auto) Absolute Nucleated RBC Nucleated RBC % (auto) Anion Gap Estim Creat Clear Calc Estimated GFR Random Glucose Calcium Magnesium C-Reactive Protein Urine Color Urine Appearance Urine pH Ur Specific [place] Urine Protein Urine Glucose (UA) Urine Ketones Urine Blood Urine Nitrite Ur Leukocyte Esterase Urine RBC Urine WBC Ur Squamous Epith Cells Urine Bacteria Hyaline Casts C. difficile Tox B Gene NEGATIVE Microbiology Microbiology Results: Microbiology 10/30/24 03:26 Blood Culture - Preliminary Blood - Venous No growth after 24 hours. 10/30/24 03:07 Blood Culture - Preliminary Blood - Venous No growth after 24 hours. Assessment and Plan (1) Proctocolitis: Status: Acute Plan 79 y/o woman with PMHx significant for adenosquamous cell carcinoma status post radiation admitted with: Protocolitis failed outpatient treatment. Continue empiric IV antibiotic therapy with Zosyn. C diff negative Gentle hydration. Gastroenterology consultation> plan for flex sig 11/01 Paroxysmal atrial fibrillation. Continue flecainide, diltiazem and Eliquis (on hold) Hypothyroidism. Continue levothyroxine. GERD. Continue omeprazole. COPD. Albuterol as needed. Essential hypertension. On diltiazem. Chronic kidney disease, stage 3A. Continue to monitor. Hyperlipidemia. Continue statin. DVT prophylaxis: Eliquis on hold Code status: Full Quality Stroke Does the patient have a stroke diagnosis?: No VTE Prior VTE?: No VTE Risk Level:: Medical - moderate - high VTE Device Contraindication: N/A - Device Ordered VTE Drug Contraindication: N/A - Med Ordered
[2024-10-31] MEDS: dilTIAZem HCL CD 240 MG CAP.ER.DEG PO (08:45)
[2024-10-31] MEDS: 0.9 % Sodium Chloride Flush 3 ML SYRINGE IVFLUSH ×2 (08:47→21:00)
--- NOTE | 2024-10-31 13:46 | MHC.CM.PN ---
Per MD rounds no dc today. A GI consult has been done. The plan is Flex Sig tomorrow. DP STR via BLS once medically cleared.
[2024-10-31 15:22] VITALS: BP 119/56; PULSE 77; RESP 13; TEMP 37.2; O2SAT 97
[2024-10-31 19:20] VITALS: BP 133/62; PULSE 85; RESP 18; TEMP 37.2; O2SAT 99
[2024-11-01] VITALS (10 sets, daily range): BP systolic 100–134; BP diastolic 41–58; PULSE 69–87; RESP 16–22; TEMP 36.4–37.2; O2SAT 94–100; BMI 23.1
--- NOTE | 2024-11-01 | ECG_ITS ---
Test Reason : check qtc Blood Pressure : */* mmHG Vent. Rate : 68 BPM Atrial Rate : 68 BPM P-R Int : 190 ms QRS Dur : 92 ms QT Int : 420 ms P-R-T Axes : -8 64 66 degrees QTcB Int : 446 ms Normal sinus rhythm Normal ECG When compared with ECG of 07-May-2024 11:08, No significant change was found Referred By: Rachel Palma Electronically Signed By: Yogi Crowe
[2024-11-01] MEDS: dilTIAZem HCL CD 240 MG CAP.ER.DEG PO (08:17)
[2024-11-01] MEDS: 0.9 % Sodium Chloride Flush 3 ML SYRINGE IVFLUSH ×2 (08:18→16:26)
[2024-11-01 10:15] LABS: INTERNATIONAL NORM RATIO 1.3 (0.9-1.1); Prothrombin Time 15.1 SEC (10.9-12.4)
--- NOTE | 2024-11-01 10:55 | HO.ANESPROP2 ---
HPI - Anesthesia Eval Consult details Narrative: For flex sig. PMFSH Active Problems Active Problems: All Active Problems History of radiation exposure (Acute) Crohn's disease (Acute) Fall at home (Acute) Weakness (Acute) Proctocolitis (Acute) Poor appetite (Acute) Anal squamous cell carcinoma (Acute) Current use of fci anticoagulation (Acute) External hemorrhoids (Acute) Hyperuricemia (Acute) Impaired fasting glucose (Acute) Inflammatory arthritis (Acute) Multinodular thyroid (Acute) Mixed stress and urge urinary incontinence (Acute) Dyslipidemia (Acute) Paroxysmal atrial fibrillation (Acute) Chronic kidney disease, stage 3 (Acute) Osteoporosis (Acute) COPD (chronic obstructive pulmonary disease) (Acute) Acquired hypothyroidism (Acute) Past Medical History Medical History History of diverticulitis Anal squamous cell carcinoma Hemorrhoids Current use of buttermaker helper anticoagulation External hemorrhoids Hyperuricemia Vitamin D deficiency Impaired fasting glucose Inflammatory arthritis Multinodular thyroid Mixed stress and urge urinary incontinence Dyslipidemia Paroxysmal atrial fibrillation Chronic kidney disease, stage 3 Osteoporosis COPD (chronic obstructive pulmonary disease) Acquired hypothyroidism Family History Family History Father AAA (abdominal aortic aneurysm) CVA (cerebral vascular accident) Mother Diabetes mellitus HTN (hypertension) Gallbladder cancer Sister Diabetes mellitus Son Substance use disorder Son Substance use disorder Family history of problems with anesthesia: No Surgical History Surgical History Hx of colonoscopy S/P partial hysterectomy History of section History of Problems with Anesthesia: No Social History Social History Household Members: Children Household Members Other:: son Housing: Condominium Housing Other:: [place]lex Are you a primary disabilities caregiver to a significant other at home: No Do you presently have visiting nurse or other home services: No Alcohol intake: current Alcohol intake frequency: does not drink Comment: steady on feet in room Patient Tobacco Use Status: Former Tobacco user Tobacco use type: Cigarette Years Smoked: 20 years Smoked in Last 30 Days: No e-Cigarette/Vaping Use: Never Used Patient Interested in Nicotine Replacement: No Patient Given Instructions on How to Stop Smoking: No Second Hand Smoke Exposure: No Use of substances other than those prescribed or required for medical reasons: No Substance Use Type: Marijuana Currently Displaying Signs/Symptoms of Drug Intoxication Withdrawal: No Have you been hit, kicked, punched, or otherwise hurt by someone within the past year? If so, by whom?: No Do you feel safe in your current relationship?: No Current Relationship Is there a partner from a previous relationship who is making you feel unsafe now?: No Are you made to feel afraid or neglected: No Are you DNR?: No Advance Directives: Yes Advance Directives on File: Yes Advance Directives Date on File: 05/30/20 Do you have a plan to hurt others: No Plan Recently lost weight without trying: Yes How much weight loss: 34pounds or more Eating poorly because of decreased appetite: Yes Nutrition screen score: 7 Nutrition Risks: Poor intake 0-25% >4 days Patient : No : No Poor oral hygiene: Yes service: No Current occupational status: retired Gender identity: Female Cognitive needs: No Hearing needs: No Vision needs: Yes Meds Allergies Allergy/AdvReac Type Severity Reaction Status Date / Time tetracycline (TETRACYCLINE) Allergy Unknown ITCHINESS, Verified 10/29/24 17:39 rash nitrofurantoin Allergy Swelling Verified 10/29/24 17:39 atorvastatin (Lipitor) AdvReac Unknown Muscle pain Verified 10/29/24 17:39 bactrim Allergy Unknown Elevated Uncoded 07/16/24 10:27 LFTs/Itching/Nausea fentanyl AdvReac Severe Unconscious Uncoded 07/16/24 10:27 Active Medications: Current Medications Acetaminophen (Acetaminophen 325 Mg Tablet) 975 mg PO Q6H PRN PRN Reason: Pain, Mild 1-3,fever,headache Last Admin: 10/30/24 12:48 Dose: 650 mg Albuterol Sulfate (Albuterol Sulfate (0.083%) 2.5 Mg/3 Ml Vial.Neb) 2.5 mg INHALE Q2H PRN PRN Reason: Shortness of Breath/Wheezing Apixaban (Apixaban 5 Mg Tablet) 5 mg PO BID [facility] On Hold: 10/31/24 08:35 Last Admin: 10/30/24 20:46 Dose: 5 mg Calcium Carbonate (Calcium Carbonate 750 Mg Tab.Chew) 750 mg PO Q4H PRN PRN Reason: Heartburn Diltiazem HCl (Diltiazem Hcl Cd 240 Mg Cap.Er.Deg) 240 mg PO DAILY [facility]; Protocol Last Admin: 11/01/24 08:17 Dose: 240 mg Enoxaparin Sodium (Enoxaparin Sodium 40 Mg/0.4 Ml Syringe) 40 mg SUBCUT Q24H [facility] Last Admin: 11/01/24 10:12 Dose: Not Given Flecainide Acetate (Flecainide Acetate 50 Mg Tablet) 75 mg PO BID [facility] Last Admin: 11/01/24 08:17 Dose: 75 mg Piperacillin Sod/Tazobactam (Sod 3.375 gm/ Sodium Chloride) 50 mls @ 100 mls/hr IV Q6H [facility] Last Infusion: 11/01/24 09:06 Dose: Infused Levothyroxine Sodium (Levothyroxine Sodium 75 Mcg Tablet) 75 mcg PO DAILY@0600 [facility] Last Admin: 11/01/24 05:52 Dose: 75 mcg Melatonin (Melatonin 3 Mg Tablet) 6 mg PO BEDTIME PRN PRN Reason: Insomnia Morphine Sulfate (Morphine Sulfate 2 Mg/Ml Cartridge) 2 mg IVPUSH Q3H PRN; Protocol PRN Reason: abdominal pain Ondansetron HCl (Ondansetron Hcl 4 Mg/2 Ml Vial) 4 mg IVPUSH Q8H PRN PRN Reason: Nausea and Vomiting Sodium Biphosphate/Sodium Phosphate (Sodium Phosphate,[place]-Dibasic 133 Ml Enema) 133 ml CA ONCE [facility] Last Admin: 10/31/24 17:52 Dose: 133 ml Sodium Biphosphate/Sodium Phosphate (Sodium Phosphate,[place]-Dibasic 133 Ml Enema) 133 ml CA ONCE [facility] Last Admin: 11/01/24 09:55 Dose: 133 ml Sodium Chloride (0.9 % Sodium Chloride Flush 3 Ml Syringe) 3 ml IVFLUSH QSHIFT [facility] Last Admin: 11/01/24 08:18 Dose: 3 ml Home Medications ?Medication ?Instructions ?Recorded ?Confirmed ?Last Taken ?Type apixaban 5 mg tablet (Eliquis) 5 mg PO BID 05/05/20 10/30/24 10/29/24 History Held on 05/11/24. Instructions: Resume on 05/14/24. flecainide 50 mg tablet 75 mg PO BID 09/09/22 10/30/24 10/29/24 History diltiazem HCl 240 mg 240 mg PO DAILY 07/16/24 10/30/24 10/29/24 History tablet,extended release 24 hr tramadol 50 mg tablet 50 mg PO DAILY PRN pain 10/30/24 10/30/24 10/29/24 History Exam Height,Weight and Vital Signs: Height 5 ft 2 in Weight 57.4 kg Last Vital Signs Temp 97.7 F 11/01/24 07:30 Pulse 72 11/01/24 07:30 Resp 18 11/01/24 07:30 BP 117/56 L 11/01/24 07:30 Pulse Ox 94 11/01/24 07:30 O2 Del Method Room Air 11/01/24 07:30 Pertinent Lab Results Pertinent Lab Results: Laboratory Tests 10/29/24 10/30/24 10/30/24 17:58 03:07 08:58 WBC 14.3 H 12.1 H RBC 3.63 L 3.59 L Hgb 11.9 L 12.0 Hct 35.9 L 35.8 L MCV 98.9 H 99.7 H MCH 32.8 33.4 H MCHC 33.1 33.5 RDW 15.7 15.9 Plt Count 264 D 226 MPV 8.6 L 8.5 L Immature Gran % (Auto) 0.6 H 0.5 H Neut % (Auto) 86.2 H 82.7 H Lymph % (Auto) 4.9 L 5.0 L [place] % (Auto) 7.2 8.8 Eos % (Auto) 0.5 2.3 Baso % (Auto) 0.6 0.7 Lymph # (Auto) 0.7 L 0.6 L [place] # (Auto) 1.0 1.1 Eos # (Auto) 0.1 0.3 Baso # (Auto) 0.1 0.1 Abs Immat Gran (auto) 0.09 H 0.06 H Absolute Neuts (auto) 12.3 H 10.0 H Absolute Nucleated RBC 0.000 0.000 Nucleated RBC % (auto) 0.0 0.0 PT 27.2 H D INR 2.4 H Sodium 134 L 134 L Potassium 4.2 4.2 Chloride 104 102 Carbon Dioxide 22 25 Anion Gap 12 11 L BUN 15 14 Creatinine 0.94 0.93 Estim Creat Clear Calc 37.7 38.1 Estimated GFR 57 58 Random Glucose 112 106 Lactic Acid 1.6 1.9 Calcium 8.8 8.5 Magnesium 2.1 2.0 Total Bilirubin 0.5 AST 13 ALT < 6 Alkaline Phosphatase 101 C-Reactive Protein Total Protein 7.1 Albumin 3.1 L Lipase < 4 L Urine Color Urine Appearance Urine pH Ur Specific [place] Urine Protein Urine Glucose (UA) Urine Ketones Urine Blood Urine Nitrite Ur Leukocyte Esterase Urine RBC Urine WBC Ur Squamous Epith Cells Urine Bacteria Hyaline Casts C. difficile Tox B Gene 10/30/24 10/30/24 10/30/24 13:50 18:26 Unknown WBC RBC Hgb Hct MCV MCH MCHC RDW Plt Count MPV Immature Gran % (Auto) Neut % (Auto) Lymph % (Auto) [place] % (Auto) Eos % (Auto) Baso % (Auto) Lymph # (Auto) [place] # (Auto) Eos # (Auto) Baso # (Auto) Abs Immat Gran (auto) Absolute Neuts (auto) Absolute Nucleated RBC Nucleated RBC % (auto) PT INR Sodium Potassium Chloride Carbon Dioxide Anion Gap BUN Creatinine Estim Creat Clear Calc Estimated GFR Random Glucose Lactic Acid Calcium Magnesium Total Bilirubin AST ALT Alkaline Phosphatase C-Reactive Protein 15.46 H Total Protein Albumin Lipase Urine Color Yellow Urine Appearance Clear Urine pH 5.5 Ur Specific [place] >= 1.030 H Urine Protein 30 (1+) H Urine Glucose (UA) Negative Urine Ketones Trace Urine Blood Negative Urine Nitrite Negative Ur Leukocyte Esterase Small (1+) H Urine RBC 0-2 Urine WBC 21-50 H Ur Squamous Epith Cells 0-2 Urine Bacteria None Seen Hyaline Casts 0-2 C. difficile Tox B Gene NEGATIVE 11/01/24 09:42 WBC RBC Hgb Hct MCV MCH MCHC RDW Plt Count MPV Immature Gran % (Auto) Neut % (Auto) Lymph % (Auto) [place] % (Auto) Eos % (Auto) Baso % (Auto) Lymph # (Auto) [place] # (Auto) Eos # (Auto) Baso # (Auto) Abs Immat Gran (auto) Absolute Neuts (auto) Absolute Nucleated RBC Nucleated RBC % (auto) PT 15.1 H D INR 1.3 H Sodium Potassium Chloride Carbon Dioxide Anion Gap BUN Creatinine Estim Creat Clear Calc Estimated GFR Random Glucose Lactic Acid Calcium Magnesium Total Bilirubin AST ALT Alkaline Phosphatase C-Reactive Protein Total Protein Albumin Lipase Urine Color Urine Appearance Urine pH Ur Specific [place] Urine Protein Urine Glucose (UA) Urine Ketones Urine Blood Urine Nitrite Ur Leukocyte Esterase Urine RBC Urine WBC Ur Squamous Epith Cells Urine Bacteria Hyaline Casts C. difficile Tox B Gene Airway Mallampati Class: II TM Dist: >3cm Neck ROM: Full Denture: Upper and Lower Heart: ok Lungs: ok Assessment and Plan Assessment Anesthesia Assessment: Anesthesia Plan Discussed and Chart Reviewed Final Anesthetic Review Family History of Problems with Anesthesia: No History of Problems with Anesthesia: No NPO: Yes ASA Class: IV Final Preanesthetic Review: No Changes in Pt Med Stat, Meds/Allgs Chart Reviewed, Consent Obtained/Reviewed and Anes Risks/Benef Reviewed Patient Risk: High Procedure Risk: Low Anesthetic Plan Anesthetic Plan: MAC: and Agree w/ Assess. and Plan Disposition: Standard PACU
[2024-11-01 11:15] LABS: E. coli EAEC Not Detected (Not Detect.); E. coli EPEC Not Detected (Not Detect.); E. coli ETEC Not Detected (Not Detect.); E. coli STEC Not Detected (Not Detect.); Shigella sp./EIEC Not Detected (Not Detect.)
--- NOTE | 2024-11-01 11:39 | P.PNGI_ITS ---
Subjective Subjective Date of Service: 11/01/24 Interval History: pain is improved lyla rectal bleeding-still has diarrhea, may be less appetite fair no fevers or chills she is worried she cracked a rib Critical Care Time (minutes): 0 Physical Exam 2 Vital Signs: Vital Signs: Last Vital Signs Temp 97.8 F 11/01/24 11:09 Pulse 76 11/01/24 11:09 Resp 18 11/01/24 11:09 BP 115/42 L 11/01/24 11:09 Pulse Ox 97 11/01/24 11:09 O2 Del Method Room Air 11/01/24 11:09 BMI result Body Mass Index 23.1 EXAM: GENERAL: The patient is frail, bruises on arms VITAL SIGNS:see workflow HEENT: Nonicteric sclerae, PERRLA, EOMI. Oropharynx clear. Moist mucous membranes. Conjunctivae appear well perfused. No thyroid mass. CHEST: Chest wall is nontender. HEART: Regular rate and rhythm without murmurs. LUNGS: Clear to auscultation bilaterally. ABDOMEN: Soft, positive bowel sounds, nontender, no organomegaly.no flank tenderness SKIN: No rash, NEUROLOGIC: Cranial nerves II-XII intact without motor/sensory deficit. Psych: normal affect Objective Data Labs 10/30/24 08:58 10/30/24 08:58 Labs: Laboratory Results - last 24 hr 10/31/24 11/01/24 19:39 09:42 PT 15.1 H D INR 1.3 H Stl C. cayetanensis PCR Not Detected Stool Rotavirus A PCR Not Detected Stl Adenov F 40/41 PCR Not Detected Stool Astrovirus (PCR) Not Detected Stool Campylobacter PCR Detected A Stool Cryptosporidium PCR Not Detected Stl Sh Tox Pr E STEC PCR Not Detected Stool E coli O157 PCR Not applicable Stl Enterotoxigenic E PCR Not Detected Stool EPEC (PCR) Not Detected Stool EAEC (PCR) Not Detected Stl E. histolytica PCR Not Detected Stool Giardia Lamblia PCR Not Detected Stl P. shigelloides PCR Not Detected Stool Salmonella PCR Not Detected Stool Sapovirus (PCR) Not Detected Stl Shigella/EIEC PCR Not Detected St Y.enterocolitica PCR Not Detected Stool Vibrio (PCR) Not Detected Stl Vibrio cholerae PCR Not Detected Stl Norovirus GI/GII PCR Not Detected Microbiology Microbiology Results: Microbiology 10/30/24 Unknown Urine clean catch - Clean Catch Midstream Urine Culture - Final No growth. 10/30/24 03:26 Blood - Venous Blood Culture - Preliminary No growth after 48 hours. 10/30/24 03:07 Blood - Venous Blood Culture - Preliminary No growth after 48 hours. Procedures Date of Service Date of Service: 11/01/24 Progress Note: A&P Assessment and plan (1) Proctocolitis: Status: Acute Plan 1. Colitis on imaging, stool also pos for campylobacter, she feels improved has been receiving zosyn as well, prior path with granulomas. PLAN: 1/ Sigmoidoscopy today, depending on this may consider entyvio, as o/p--she is in remission for cancer and finished her chemo XRT Time Spent With Patient Time: Total time managing care of this patient today ____ minutes. Quality Stroke Does the patient have a stroke diagnosis?: No VTE Prior VTE?: No VTE Risk Level:: Medical - moderate - high VTE Device Contraindication: N/A - Device Ordered VTE Drug Contraindication: N/A - Med Ordered
--- NOTE | 2024-11-01 12:02 | W.PM.OPN ---
Operative Note Operative Note Date of Service: 11/01/24 Narrative: Procedure Description: sigmoidoscopy Indication: colitis Anesthesia: MAC Sigmoidoscopy Instrument: Pediatric colonoscope Colonoscopy Monitoring: Vital signs and clinical assessment, continuous EKG monitoring, Pulse oximetry, Carbon Dioxide monitoring and blood pressure monitoring were done throughout the procedure. Procedure: The patient was placed in the left lateral decubitis position and pre-procedure medications were administered. After a digital rectal examination of the ano-rectum, the video colonoscope was inserted into the rectum and advanced through the colon to the sigmoid colon The scope was slowly withdrawn in a retrograde panoramic fashion and the colon mucosa was carefully examined . Findings and interventions are described below. Procedure Difficulty: moderate Findings: Transverse Colon- not reached Sigmoid Colon: severe edema and inflammation, with narrowing of lumen Rectum: Moderate severe inflammation with few superficial ulcers- bx taken Anorectum - normal Colon preparation: good Impression and Post Procedure Diagnosis: colitis Plan: commence Pred 40 mg with long taper, complete 1 week of Abx for campylobacter will consider o/p entyvio for her, will carolyn hep screen and TB spot restart eliquis tomorrow if needed Above findings were reviewed with the patient and relevant handouts were provided if indicated.
--- NOTE | 2024-11-01 13:48 | P.PNIM_ITS ---
Subjective Subjective Date of Service: 11/01/24 Interval History: Seen and examined this morning Follow-up for colitis Left lower abdominal pain improving Review of Systems Review of Systems: Yes all other systems are reviewed and are negative Constitutional Constitutional: Denies chills and Denies fever(s) Physical Exam 2 Vital Signs: Vital Signs: Last Vital Signs Temp 97.8 F 11/01/24 13:21 Pulse 70 11/01/24 13:21 Resp 18 11/01/24 13:21 BP 126/58 L 11/01/24 13:21 Pulse Ox 98 11/01/24 13:21 O2 Del Method Room Air 11/01/24 13:21 BMI result Body Mass Index 23.1 Const: Nutritional Appearance: well nourished Orientation/consciousness: p atient oriented x3 Resp: Effort & Inspection: normal respiratory effort and no respiratory distress Cardio: Rate: regular rate Rhythm: regular rhythm GI: Palpation (GI): Soft to palpation and nontender Neuro: General: patient oriented x3 Extrem: General: Yes normal to inspection Objective Data Active Medications Acetaminophen (Acetaminophen 325 Mg Tablet) 975 mg PO Q6H PRN PRN Reason: Pain, Mild 1-3,fever,headache Last Admin: 10/30/24 12:48 Dose: 650 mg Documented By: NATHAN Comments: pt refused 975mg and only took 650mg Albuterol Sulfate (Albuterol Sulfate (0.083%) 2.5 Mg/3 Ml Vial.Neb) 2.5 mg INHALE Q2H PRN PRN Reason: Shortness of Breath/Wheezing Apixaban (Apixaban 5 Mg Tablet) 5 mg PO BID [facility] On Hold: 10/31/24 08:35 Last Admin: 10/30/24 20:46 Dose: 5 mg Documented By: NEGIN Artificial Tears (Artificial Tears 15 Ml Drops) 2 drop EYE-BOTH Q4H PRN PRN Reason: Dry Eyes Calcium Carbonate (Calcium Carbonate 750 Mg Tab.Chew) 750 mg PO Q4H PRN PRN Reason: Heartburn Diltiazem HCl (Diltiazem Hcl Cd 240 Mg Cap.Er.Deg) 240 mg PO DAILY [facility]; Protocol Last Admin: 11/01/24 08:17 Dose: 240 mg Documented By: JAMES Enoxaparin Sodium (Enoxaparin Sodium 40 Mg/0.4 Ml Syringe) 40 mg SUBCUT Q24H [facility] Last Admin: 11/01/24 10:12 Dose: Not Given Documented By: JAMES Non-Admin Reason: held for procedure Flecainide Acetate (Flecainide Acetate 50 Mg Tablet) 75 mg PO BID [facility] Last Admin: 11/01/24 08:17 Dose: 75 mg Documented By: JAMES Piperacillin Sod/Tazobactam (Sod 3.375 gm/ Sodium Chloride) 50 mls @ 100 mls/hr IV Q6H [facility] Last Infusion: 11/01/24 09:06 Dose: Infused Documented By: JAMES Levothyroxine Sodium (Levothyroxine Sodium 75 Mcg Tablet) 75 mcg PO DAILY@0600 [facility] Last Admin: 11/01/24 05:52 Dose: 75 mcg Documented By: NEGIN Melatonin (Melatonin 3 Mg Tablet) 6 mg PO BEDTIME PRN PRN Reason: Insomnia Morphine Sulfate (Morphine Sulfate 2 Mg/Ml Cartridge) 2 mg IVPUSH Q3H PRN; Protocol PRN Reason: abdominal pain Ondansetron HCl (Ondansetron Hcl 4 Mg/2 Ml Vial) 4 mg IVPUSH Q8H PRN PRN Reason: Nausea and Vomiting Sodium Biphosphate/Sodium Phosphate (Sodium Phosphate,[place]-Dibasic 133 Ml Enema) 133 ml NE ONCE [facility] Last Admin: 10/31/24 17:52 Dose: 133 ml Documented By: JM Sodium Biphosphate/Sodium Phosphate (Sodium Phosphate,[place]-Dibasic 133 Ml Enema) 133 ml NE ONCE [facility] Last Admin: 11/01/24 09:55 Dose: 133 ml Documented By: JAMES Sodium Chloride (0.9 % Sodium Chloride Flush 3 Ml Syringe) 3 ml IVFLUSH QSHIFT [facility] Last Admin: 11/01/24 08:18 Dose: 3 ml Documented By: JAMES Labs 10/30/24 08:58 11/01/24 14:54 Labs: Laboratory Results - last 24 hr 10/31/24 11/01/24 19:39 09:42 PT 15.1 H D INR 1.3 H Stl C. cayetanensis PCR Not Detected Stool Rotavirus A PCR Not Detected Stl Adenov F 40/41 PCR Not Detected Stool Astrovirus (PCR) Not Detected Stool Campylobacter PCR Detected A Stool Cryptosporidium PCR Not Detected Stl Sh Tox Pr E STEC PCR Not Detected Stool E coli O157 PCR Not applicable Stl Enterotoxigenic E PCR Not Detected Stool EPEC (PCR) Not Detected Stool EAEC (PCR) Not Detected Stl E. histolytica PCR Not Detected Stool Giardia Lamblia PCR Not Detected Stl P. shigelloides PCR Not Detected Stool Salmonella PCR Not Detected Stool Sapovirus (PCR) Not Detected Stl Shigella/EIEC PCR Not Detected St Y.enterocolitica PCR Not Detected Stool Vibrio (PCR) Not Detected Stl Vibrio cholerae PCR Not Detected Stl Norovirus GI/GII PCR Not Detected Microbiology Microbiology Results: Microbiology 10/30/24 Unknown Urine Culture - Final Urine clean catch - Clean Catch Midstream No growth. 10/30/24 03:26 Blood Culture - Preliminary Blood - Venous No growth after 48 hours. 10/30/24 03:07 Blood Culture - Preliminary Blood - Venous No growth after 48 hours. 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 Initially treated with IV Zosyn C diff negative , GI panel returned positive for Campylobacter Gastroenterology consultation> s/p flex sig 11/01 -showing severe edema inflammation, with moderate severe inflammation and few superficial ulcers of the rectum. will transitione to azithromycin to treat Campylobacter if qtc is ok - EKG pending; GI recommending 7 more days of abx due to relative immune compromise Due to underlying presumed Crohn's disease start prednisone taper as per GI recommendation; plan for 40 mg x 7 days then decrease to 20 mg and decrease by 5mg every week after that Paroxysmal atrial fibrillation. Continue flecainide, diltiazem and Eliquis (on hold) - can resume eliquis is am Hypothyroidism. Continue levothyroxine. GERD. Continue omeprazole. COPD. Albuterol as needed. Essential hypertension. On diltiazem. Chronic kidney disease, stage 3A. Continue to monitor. Hyperlipidemia. Continue statin. DVT prophylaxis: Eliquis on hold Code status: Full Quality Stroke Does the patient have a stroke diagnosis?: No VTE Prior VTE?: No VTE Risk Level:: Medical - moderate - high VTE Device Contraindication: N/A - Device Ordered VTE Drug Contraindication: N/A - Med Ordered
--- NOTE | 2024-11-01 14:36 | MHC.CLN ---
NUTRITION LOW FIBER DIET PER MD REC. SIGNIFICANT WEIGHT LOSS X 4 MONTHS -11.7%. LIKELY CONTRIBUTOR TO WEIGHT LOSS DECREASED PO WITH ANAL CANCER/CANCER TREATMENT. FOLLOW FOR PO INTAKE AND DIET TOLERANCE. SEE CLINICAL NUTRITION ASSESSMENT 11/01/24.
[2024-11-01 15:35] LABS: Anion Gap 11 (12-20); Blood Urea Nitrogen 8 mg/dL (9-16); Calcium 8.2 mg/dL (8.4-10.2); Carbon Dioxide 24 mmol/L (22-29); Chloride 106 mmol/L (96-108); Creatinine Clr Calc Pharmacy 40.7; Estimated Glomerular Filt Rate > 60; Magnesium 2.2 mg/dL (1.6-2.6); Potassium 3.7 mmol/L (3.3-5.1); Sodium 137 mmol/L (135-145)
[2024-11-02 04:00] VITALS: BP 150/63; PULSE 76; RESP 18; TEMP 36.1; O2SAT 97
[2024-11-02] MEDS: 0.9 % Sodium Chloride Flush 3 ML SYRINGE IVFLUSH ×2 (04:07→07:25)
[2024-11-02] MEDS: dilTIAZem HCL CD 240 MG CAP.ER.DEG PO (07:24)
[2024-11-02 08:00] VITALS: BP 128/58; PULSE 64; RESP 18; TEMP 36.9; O2SAT 95
--- NOTE | 2024-11-02 09:19 | HO.POSTANES ---
Post Anesthesia Evaluation Post Anesthesia Evaluation Date of Service: 11/02/24 Vital Signs: Vital Signs Temp Pulse Resp BP Pulse Ox O2 Del Method 11/02/24 08:00 98.5 F 64 18 128/58 L 95 Room Air 11/02/24 04:00 97.0 F 76 18 150/63 H 97 Room Air Anesthesia: Monitored Mental Status: Awake Pain Control: Satisfactory Nausea/Vomiting: None Hydration: Adequate Anesthesia-Related Issues: No Anes. Related Issues
[2024-11-02 10:26] VITALS: BP 128/58; PULSE 64; O2SAT 95
--- NOTE | 2024-11-02 14:06 | PM.DS ---
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 Started after she completed her radiation. She also complained of associated left lower quadrant pain and abdominal distention. She also complained of nausea and vomiting. She noted that she has been urinating less frequently. She denied chest pain, cough, shortness on breath, headache or fevers. She was evaluated in the ED recently and has been taking it Augmentin. In the ED, she was found to have stable vital signs. Blood workup showed leukocytosis of 14.3. There is no lactic acidosis. Hemoglobin is 11.9 and platelets 264. INR is 2.4. Sodium is 134 but there is no other electrolyte imbalances. Renal function and LFTs are normal. Lipase is less than 4. Abdominal pelvis CT scan showed no significant interval change in the previously noted proctocolitis. There are no abscesses, free air or obstructions. It did showed cholelithiasis. ED tx: NS 500 mL, Zofran 4 mg IV, morphine 2 mg IV, Zosyn 3.375 g IV Protocolitis Initially treated with IV Zosyn. C diff negative, GI panel returned positive for Campylobacter. Seen by Gastroenterology and underwent flex sig 11/01 -showing severe edema inflammation, with moderate severe inflammation and few superficial ulcers of the rectum. Zosyn was transitioned to azithromycin to treat Campylobacter, GI recommending 7 more days of abx due to relative immune compromise. Due to inflammation and appearance of GI concerned for underlying Crohn's disease and recommended to start prednisone taper; plan for 40 mg x 7 days then decrease to 20 mg and decrease by 5mg every week after that. Patient denies abdominal pain, tolerating regular diet. Paroxysmal atrial fibrillation. Continue on diltiazem and Eliquis. Discussed with Cardiology regarding antibiotics with flecainide, recommend to hold flecainide for course of antibiotic therapy and then resume. Hypothyroidism. Continue levothyroxine. GERD. Continue omeprazole. COPD. Albuterol as needed. Essential hypertension. On diltiazem. Chronic kidney disease, stage 3A. Continue to monitor. Hyperlipidemia. Continue statin. Anal squamous cell carcinoma- patient has completed treatment, chemo and radiation ended August 2024 Patient evaluated by Physical therapy, recommended short-term rehab. Patient will be discharged in stable condition to SNF. Time Attestation Discharge Coordination Time (in mins): 36 Quality: Safe Use of Opioids Does Pt have an Active Cancer Diagnosis on the Problem List?: Yes Opioid Measure Date for [facility] Report: 10/03/24 Opioid Measure Time for [facility] Report: 14:38 Quality: Stroke Does the patient have a stroke diagnosis?: No Physical Exam Vital Signs: Vital Signs: Last Vital Signs Temp 98.5 F 11/02/24 08:00 Pulse 64 11/02/24 10:26 Resp 18 11/02/24 08:00 BP 128/58 L 11/02/24 10:26 Pulse Ox 95 11/02/24 10:26 O2 Del Method Room Air 11/02/24 08:00 BMI result Body Mass Index 23.1 Const: Nutritional Appearance: well nourished Orientation/consciousness: patient oriented x3 Resp: Effort & Inspection: normal respiratory effort and no respiratory distress Cardio: Rate: regular rate Rhythm: regular rhythm GI: Palpation (GI): Soft to palpation and nontender Neuro: General: patient oriented x3 Extrem: General: Yes normal to inspection DS: Data Data Completed and Pending Completed studies during hospitalization [Text1]: Pending at discharge 11/01/24 12:00 Surgical [PTH] Routine Procedures Excision of Anus, Via Natural or Artificial Opening, Diagnostic (05/07/24) Excision of Ascending Colon, Via Natural or Artificial Opening Endoscopic, Diagnostic (05/07/24) Excision of Sigmoid Colon, Via Natural or Artificial Opening Endoscopic, Diagnostic (05/07/24) Excision of Stomach, Pylorus, Via Natural or Artificial Opening Endoscopic, Diagnostic (05/07/24) Labs on day of discharge: Laboratory Results - last 24 hr 11/01/24 14:54 Sodium 137 Potassium 3.7 Chloride 106 Carbon Dioxide 24 Anion Gap 11 L BUN 8 L Creatinine 0.87 Estim Creat Clear Calc 40.7 Estimated GFR > 60 Random Glucose 77 Calcium 8.2 L Magnesium 2.2 Preliminary micro results at discharge 10/30/24 03:26 Blood Culture - Preliminary Blood - Venous No growth after 48 hours. 10/30/24 03:07 Blood Culture - Preliminary Blood - Venous No growth after 48 hours. Discharge Plan Discharge Anticipated Discharge Date/Time: 11/02/24 14:17 Patient Disposition: Xfer SNF Discharge Diagnosis: colitis campylobacter possible Crohn's disease Referrals: [facility] [Outside] - 1 Week Kala Lundberg MD [Primary Care Provider, Internal Medicine] - 1 Week Discharge Medications: New Artificial Tears(kd-luxg-sjji) 1-0.2-0.2 % Drops 2 drp ophthalmic (eye) Q4H PRN (Reason: Dry Eyes) Qty: 15 0RF prednisone 20 mg Tablet 40 mg PO DAILY Qty: 1 0RF omeprazole 20 mg Capsule,Delayed Release(Dr/Ec) 20 mg PO DAILY@0630 Qty: 1 0RF azithromycin 500 mg tablet 500 mg PO DAILY 6 Days Qty: 6 0RF Continued levothyroxine 75 mcg tablet 75 mcg PO DAILY Qty: 90 1RF tramadol 50 mg tablet 50 mg PO DAILY PRN (Reason: pain) Eliquis 5 mg tablet 5 mg PO BID Rx Instructions: stop for 3 days before colonoscopy diltiazem HCl 240 mg tablet extended release 24 hr 240 mg PO DAILY Held flecainide 50 mg tablet 75 mg PO BID Hold Instructions: Hold until complete course of azithromycin Discharge Orders: Discharge Order (Routine); Ordered 11/02/24 Ordered By: Rachel Palma Activity on Discharge: As tolerated Stand Alone Forms: Patient Portal Discharge page Print Language: Spanish Care Plan Goals: see below Health Concerns: colitis Campylobacter Possible Crohn's colitis Plan of Treatment: complete 6 more days of azithromycin for Campylobacter While taking azithromycin, hold flecainide. Resume flecainide when azithromycin is complete For possible Crohn's colitis take prednisone 40 mg for 6 more days, then 20 mg for 7 days and then decrease by 5 mg/week take omeprazole for GI prophylaxis while on steroids Call to schedule follow-up appointment with GI Assessment: see discharge summary
--- NOTE | 2024-11-02 14:30 | MHC.CM.PN ---
IMM 11/02/24 Patient is medically cleared to discharge. The PT eval recommendation is [facility]. [facility] has offered a bed today. Patient accepts the bed offer. S transportation is booked, [employer] 4:30pm. Referrals to [facility], [facility] and [facility], have been made for discharge from [facility].
--- NOTE | 2024-11-02 15:33 | PC.NURSE ---
Patient given Triad to bring to [facility] for excoriation of buttocks/coccyx area, PA notified.
[2024-11-02 15:44] VITALS: BP 118/56; PULSE 80; RESP 18; TEMP 36.6; O2SAT 97
[2024-11-02 16:33] VITALS: BP 145/51; PULSE 86; RESP 18; TEMP 36.9; O2SAT 98
[2024-11-02 16:34] VITALS: BP 105/55; PULSE 88; O2SAT 98
--- NOTE | 2024-11-02 16:40 | PC.NURSE ---
Patient c/o dizziness before discharge. Orthostatic BP taken 145/51 sitting and 105/55 standing. MD made aware. Patient educated to stay hydrated and slowly rising. Also asking for help with ambulation. Patient will be discharged to [facility]
[2024-11-06 18:38] LABS: Calprotectin, Fecal 5660 mcg/g
== END 2024-11-02 17:42 | disposition skilled nursing facility (03) | DRG 372 ==
LOC: HO.ED 10-30 05:12 → HO.EDOVER 10-30 05:21 → HO.S3 10-30 06:31
PROVIDERS: Anesthesiology; Internal Medicine Gastroenterology; Nurse Practitioner Acute Care; Nurse Practitioner Family; Physician Assistant Medical; Admitting Provider Internal Medicine; Emergency Provider Emergency Medicine; PCP Internal Medicine; Visit Provider Physician Assistant Medical
PROC: 0DJD8ZZ Inspection of Lower Intestinal Tract, Via Natural or Artificial Opening Endoscopic (ICD-10-PCS; CPT 45330; principal; 2024-11-01 14:50)
DX: A04.5 Campylobacter enteritis (principal); K50.10 Crohn's disease of large intestine without complications; K62.6 Ulcer of anus and rectum; I48.0 Paroxysmal atrial fibrillation; E89.0 Postprocedural hypothyroidism; I12.9 Hypertensive chronic kidney disease with stage 1 through stage 4 chronic kidney disease, or unspecified chronic kidney disease; N18.31 Chronic kidney disease, stage 3a; E78.5 Hyperlipidemia, unspecified; J44.9 Chronic obstructive pulmonary disease, unspecified; K21.9 Gastro-esophageal reflux disease without esophagitis; Z85.048 Personal history of other malignant neoplasm of rectum, rectosigmoid junction, and anus; Z79.01 Long term (current) use of anticoagulants; Z79.890 Hormone replacement therapy; Z79.899 Other long term (current) drug therapy
CPT/HCPCS: 36415; 70450; 74177; 80048; 80053; 81001; 83605; 83690; 83735; 83993; 85025; 85610; 86140; 87040; 87086; 87493; 87507; 88305; 93005; 97162; 99285; J0456; J1650; J2003; J2270; J2405; J2543; J7120; Q9967

== ENCOUNTER → 2024-10-29 17:38 | Outpatient (BNV) | payer MEDICARE, BC, SELFPAY | PROVIDERS: PCP Internal Medicine; Visit Provider Radiology Diagnostic Radiology | DX: R10.9 Unspecified abdominal pain (principal) | CPT/HCPCS: 74177 ==

== ENCOUNTER → 2024-10-29 20:20 | Outpatient (BNV) | payer MEDICARE, BC, SELFPAY | PROVIDERS: Emergency Provider Emergency Medicine; PCP Internal Medicine; Visit Provider Internal Medicine | DX: C21.0 Malignant neoplasm of anus, unspecified (principal); K50.90 Crohn's disease, unspecified, without complications | CPT/HCPCS: 99232 ==

== ENCOUNTER 2024-10-30 03:25 | Outpatient (BNV) | payer MEDICARE, BC, SELFPAY | END 2024-11-01 14:24 | PROVIDERS: Admitting Provider Internal Medicine; Emergency Provider Emergency Medicine; PCP Internal Medicine; Visit Provider Internal Medicine Cardiovascular Disease | DX: Z13.6 Encounter for screening for cardiovascular disorders (principal) | CPT/HCPCS: 93010 ==

== ENCOUNTER → 2024-10-30 03:25 | Outpatient (BNV) | payer MEDICARE, BC, SELFPAY | PROVIDERS: Admitting Provider Internal Medicine; Emergency Provider Emergency Medicine; PCP Internal Medicine; Visit Provider Internal Medicine | DX: K52.9 Noninfective gastroenteritis and colitis, unspecified (principal) | CPT/HCPCS: 45331; 99222; 99232 ==

== ENCOUNTER 2024-11-20 14:53 | Outpatient (REF) | payer MEDICARE, BC, SELFPAY ==
--- NOTE | ~2024-11-20 | XR_ITS ---
EXAMINATION: XR RIBS, LEFT pelvic chest x-ray CLINICAL INFORMATION: W19.XXXA - Unspecified fall, initial encounter COMPARISON: CT chest 11/24/2023. TECHNIQUE: 3 views of the left ribs were obtained. Checks x-ray one view FINDINGS: Chest: The lungs are hyperexpanded but clear acute process.. No consolidation, pneumothorax, or pleural effusion. The cardiomediastinal silhouette and pulmonary vasculature are normal. There is a right central port with its tip in mid SVC. There is no pneumothorax or pleural effusion. Left RIBS: Multiple views of left ribs reveal no visible fracture or bony abnormality. The soft tissues are normal. XR/XR ribs LT min 3V w CXR1V IMPRESSION: Unremarkable left rib and chest examination. Electronically signed by: Julian Chun MD 11/20/2024 04:36 PM EDT
== END 2024-11-20 14:54 | disposition home or self-care (01) ==
LOC: HO.HMGCX 14:53
PROVIDERS: PCP Internal Medicine; Visit Provider Physician Assistant
DX: R07.81 Pleurodynia (principal); Z91.81 History of falling; Z79.01 Long term (current) use of anticoagulants
CPT/HCPCS: 71101; 99212

== ENCOUNTER 2024-11-20 14:53 | Outpatient (AMB) | payer MEDICARE, BC, SELFPAY ==
--- NOTE | 2024-11-20 15:32 | AM.OFFWIN_ITS ---
Intake Vital Signs 11/20/24 15:39 Height 5 ft 2 in Weight 123 lb BMI 22.5 BP 132/60 Blood Pressure Location Rt brachial Position Sitting Pulse 66 Pulse Source Pulse Oximeter Temp 97.9 F Temp Source Oral Pulse Oximetry (%) 97 Oxygen Delivery Method Room Air Intake Visit Reasons: EP pain on LT & RT side when laying down Intake Note: pt presents with pain to left rib cage with deep inhaling for about 3 weeks Patient Tobacco Use Status: Former Tobacco user Allergies tetracycline (TETRACYCLINE) Allergy (Unknown, Verified 11/20/24 15:33) ITCHINESS, rash nitrofurantoin Allergy (Verified 11/20/24 15:33) Swelling atorvastatin (Lipitor) Adverse Reaction (Unknown, Verified 11/20/24 15:33) Muscle pain bactrim Allergy (Unknown, Uncoded 07/16/24 10:27) Elevated LFTs/Itching/Nausea fentanyl Adverse Reaction (Severe, Uncoded 07/16/24 10:27) Unconscious Do you need a note to return to daycare/school/sports/work: No HPI HPI Comments History of Present Illness Details History of Present Illness - The patient is an 79-year-old female p resenting with rib pain following a fall. - Fell three weeks ago, causing left-swati ed rib pain. - Pain worsens with deep breaths. - Pain persists, no improvement. - No pain medication or topical treatmen ts used. - did not hit her head or lose conscious ness - On Eliquis, experienced diarrhea for t wo months, leading to weakness and fall. - after her fall, she did seek medical a ttention, was rehyrdated and she did rehab at [facility] - has an incentive spirometer from [facility], has not been using it much Physical Exam General: Cooperative, healthy appearing, comfortable, no acute distress and well developed Orientation: Patient oriented x3 Limitations: No limitations Head: Normal to inspection Ears: Hearing grossly normal bilaterally Face and sinus: Normal facial exam Eyes: Appearance normal, both eyes and all related structures Neck: Normal visual inspection, full ROM Respiratory: Clear to auscultation bilaterally in all lung sosa Skin: No rashes or lesions noted Neuro: Patient oriented x3, gait normal Back/spine: no TTP cervical, thoracic or lumbar spine, TTP T7 on the left side mid axillary line [facility] Medical History History of diverticulitis Anal squamous cell carcinoma Hemorrhoids Current use of fci anticoagulation External hemorrhoids Hyperuricemia Vitamin D deficiency Impaired fasting glucose Inflammatory arthritis Multinodular thyroid Mixed stress and urge urinary incontinence Dyslipidemia Paroxysmal atrial fibrillation Chronic kidney disease, stage 3 Osteoporosis COPD (chronic obstructive pulmonary disease) Acquired hypothyroidism Surgical History Hx of colonoscopy S/P partial hysterectomy History of section Family History Father AAA (abdominal aortic aneurysm) CVA (cerebral vascular accident) Mother Diabetes mellitus HTN (hypertension) Gallbladder cancer Sister Diabetes mellitus Son Substance use disorder Son Substance use disorder Social History Household Members: Children Household Members Other:: son Housing: Condominium Housing Other:: [employer] Are you a primary career technology teacher to a significant other at home: No Do you presently have visiting nurse or other home services: No Alcohol intake: current Alcohol intake frequency: does not drink Comment: steady on feet in room Patient Tobacco Use Status: Former Tobacco user Tobacco use type: Cigarette Years Smoked: 20 years e-Cigarette/Vaping Use: Never Used Second Hand Smoke Exposure: No Substance Use Type: Marijuana Advance Directives Date on File: 05/30/20 service: No Current occupational status: retired Gender identity: Female Cognitive needs: No Hearing needs: No Vision needs: Yes Review of Systems Const All systems reviewed & are unremarkable except as noted in HPI and below Physical Exam Vital Signs: Last Vital Signs Temp 97.9 F 11/20/24 15:39 Pulse 66 11/20/24 15:39 BP 132/60 11/20/24 15:39 Pulse Ox 97 11/20/24 15:39 Oxygen Delivery Method Room Air 11/20/24 15:39 BMI result Body Mass Index 22.5 Assessment & Plan Assessment & Plan (1) Fall: Code(s): W19.XXXA - Unspecified fall, initial encounter Qualifiers: Encounter type: initial encounter Qualified Code(s): W19.XXXA - Unspecified fall, initial encounter Plan: Possible rib fracture, recommended she use the incentive spirometer 3 times a day, 10 breaths each time. We did discuss that there is no true treatment for rib pain, she is on a blood thinner so she can not take NSAIDs. We will get a chest x-ray as her home health aide did not hear lung sounds however I did on exam today. (2) Rib pain on left side: Code(s): R07.81 - Pleurodynia Plan: As above Orders: Orders XR ribs LT min 3V w CXR1V Today R07.81 - Pleurodynia, W19.XXXA - Unspecified fall, initial encounter Coding Level of Care Code Est Pt Level 4 (27799) Diagnoses Fall, initial encounter W19.XXXA Encounter type: initial encounter Rib pain on left side R07.81
[2024-11-20 15:39] VITALS: BP 132/60; PULSE 66; TEMP 36.6; O2SAT 97; BMI 22.5
--- OUTSIDE RECORDS SUMMARY | 2024-11-20 15:43 | XMS_ITS | Data Portability ---
Author Organization [facility], , [facility] Address [address] [place] [address] Assessment Encounter Date Assessment Date Assessment LastModified [...] By Organization Details Last Modified Time 01/14/2015 [id number] cataracts-monito r . Rx change-new spectacle Rx given. RTC 1 year comp exam-cataracts. Patient wishes to have her epiphora addressed [email or web address] Not available 01/17/2015 15:45:52 01/20/2016 [id number] RTC 6 months for CEE or sooner prn [email or web address] Not available 01/20/2016 10:56:58 Reason for Referral None Reported. Results Created Date Observation Date Name Description Value Unit Range Abnormal Flag Note LastModifiedBy Organization Detail LastModifiedTime 04/06/20 10 03/26/2010 mammo gram, scree yareil No observ ation record ed. [facility] [address] , [place], [address], 11/17/2012 04:34:18 Result Notes None recorded. Problems Name Problem SNOMED Code Status Onset Date Resolution Date Notes Provider Name and Address Organization Details Recorded Time Nuclear senile cataract 752525005 Active Alphonse Buckley, OD [address] [place], [address] , [facility] 5 15:45:52 Regular astigmatis m 31745854 Active Alphonse Buckley, OD [address], [place], , [facility] 5 15:45:52 Acute conjunctiv itis 25269571 Completed 200003/14/2013 Not Available [facility] 3 02:02:28 Mixed hyperlipid emia 727610935 [facility] 15:37:26 Glucose level outside reference range 262519954 Active 2004 Not Available [facility] 3 03:07:04 Malaise and fatigue 433868143 Completed 200403/14/2013 Not Available [facility] 3 02:00:14 Common cold 98520653 Completed 200403/14/2013 Not Available [facility] 3 02:00:24 Neck pain 62496838 Completed 200503/14/2013 Not Available [facility] 3 02:00:32 On examinatio n - a rash Completed 200503/14/2013 Not Available [facility] 3 02:00:45 Cortical senile cataract 54775785 Active 2005 Alphonse Buckley, OD [address] [place], [address] , [facility] 5 15:45:52 Astigmatis m 26885625 Active 2005 Not Available [facility] 3 03:07:04 Corneal ulcer 02056471 Active 2005 Not Available [facility] 3 03:07:04 Keratoconj unctivitis 86290277 Active 2005 Not Available [facility] 3 03:07:04 Osteoporos is 78890194 Active 2005 Not Available [facility] 3 03:07:04 Dry eyes 305908248 Active 2005 Not Available [facility] 3 03:07:04 Red eye Completed 200603/14/2013 Not Available [facility] 3 02:04:06 Pain in eye 83157892 Completed 200603/14/2013 Not Available [facility] 3 02:03:50 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 Procedures Surgical History Date Name Laterality Status Provider Name and Address Organization Details Recorded Time 01/14/2015 Refraction completed Petra Berman MA [facility] 01/14/2015 11:08:17 Imaging Results None recorded. Procedure Notes None recorded. Medical Equipment None Reported. Allergies Allergen ID Allergen Name Allergen Category Reaction Reaction Severity Criticality Documentation Date Start Date Code Code System Note Provider Name and Address Organization Details Recorded Time 340040 tetracycl ine medicatio n itching Not available Not available 01/14/2015 70061 RxNorm Petra Berman MA [facility] 5 11:08:12 Medications Name Sig [...] Available Not Available Not Available Fluzone High-Dose [id number] (PF) 180 mcg/0.5 mL intramuscul ar syringe [...] influenza, unspecified formulation 1 completed Not Available [facility] 03/10/2011 05:20:34 influenza, unspecified formulation 5 completed Not Available [facility] 03/10/2011 05:21:29 Past Encounters Encounter ID Performer Location Encounter Start Date Encounter Closed Date Diagnosis/Indication Diagnosis SNOMED-CT Code Diagnosis ICD10 Code Diagnosis Note [id number] MD YVETTE Webster, [facility], OFFICE [address] [place] [address] 03/11/2000 09:00:00 05/15/2008 02:02:29 [id number] Cassandra Lopez NP , [facility], [address] [place] [address] 03/08/2001 15:30:00 05/15/2008 02:02:[id number] [facility], [facility], [address] [place] [address] 04/24/2001 10:45:00 05/15/2008 02:02:29 [id number] Cassandra Lopez NP , [facility], [address] [place] [address] 09/07/2004 13:09:20 09/09/2004 17:51:07 [id number] [facility] , [address] [address] 09/11/2004 11:42:55 09/14/2004 08:33:53 [id number] [facility] - [address] [address] 09/11/2004 07:49:06 09/11/2004 07:49:10 [id number] Kaya Hammond MD , [facility], [address] [place] [address] 03/17/2005 14:44:07 03/24/2005 13:17:18 [id number] [facility] , [address] [address] 09/13/2005 13:13:44 09/14/2005 08:31:37 [id number] [facility] - [address] [address] 09/13/2005 14:32:54 09/13/2005 14:33:04 [id number] BEBA Martin, [facility], OFFICE [address] [place] [address] 09/13/2005 13:38:37 09/14/2005 15:50:43 [id number] Gabrielle Blackwell, OD [facility], [address] [address] 09/27/2005 10:10:47 05/15/2008 02:02:29 [id number] [facility], [address] [place] [address] 09/27/2005 12:37:27 09/27/2005 12:37:57 [id number] [facility] , [address] [place] [address] 09/27/2005 09:37:09 05/15/2008 02:02:29 [id number] Gabrielle Blackwell, OD [facility], [address] [place] [address] 10/04/2005 14:40:45 05/15/2008 02:02:29 [id number] [facility] - [address] [place] [address] 12/20/2005 09:04:10 12/20/2005 09:04:34 [id number] Gabrielle Blackwell, OD [facility], [address] [place] [address] 03/31/2006 17:18:53 04/01/2006 09:58:16 [id number] Gabrielle Blackwell, OD [facility], [address] [address] 07/18/2006 11:42:47 07/18/2006 16:44:48 [id number] Gabrielle Blackwell, OD [facility], [address] [place] [address] 07/19/2006 11:40:18 07/19/2006 15:22:27 [id number] Gabrielle Blackwell, OD [facility], [address] [place] [address] 07/21/2006 09:36:13 07/21/2006 15:44:48 [id number] Gabrielle Blackwell, OD [facility], [address] [address] 07/22/2006 09:40:07 07/22/2006 15:00:51 [id number] Gabrielle Blackwell, OD [facility], [address] [place] [address] 07/28/2006 09:45:06 07/28/2006 17:06:46 [id number] [facility] , [address] [place] [address] 11/24/2006 08:36:18 11/25/2006 09:18:40 [id number] [facility] Radiology , [address] [address] 11/24/2006 00:00:00 05/15/2008 02:02:29 [id number] [facility] Radiology , [address] [address] 11/27/2007 09:29:12 11/28/2007 09:22:50 [id number] [facility] , [address] [address] 11/27/2007 00:00:00 05/15/2008 02:02:29 [id number] Alphonse Buckley, OD [facility], [address] [address] 03/26/2008 15:52:05 03/28/2008 10:28:39 [id number] [facility], [address] [address] 02/04/2009 10:16:06 02/04/2009 16:31:36 [id number] [facility]e [facility], [address] [address] 02/05/2009 13:53:21 02/05/2009 14:04:28 [id number] [facility] Radiology , [address] [address] 03/26/2010 15:28:08 03/30/2010 14:32:38 [id number] Alphonse Buckley, OD [facility], [address] [address] 01/14/2015 10:39:56 01/14/2015 12:04:17 Nuclear senile cataract 623558722 Cortical s enile cataract 79729924 [facility] 72499986 Regular astigmatism 34260378 Presbyopia 48370539 Complainin g of - watering eyes 385559556 [id number] Laura Nick, OD [facility], [address] [address] 01/20/2016 10:13:22 01/20/2016 10:52:02 Nuclear senile cataract 644116241 H25.13 mild OU; pt ed limited views [...] Mc[employer] Member ID Guarantor Name 12/19/2014 1 [facility]: O BLUE [id number] Raquel Rivas [place] [id number] 100 Raquel Rivas Cristopher 11/14/2016 1 [place] [employer] Raquel Rivas Cristopher [id number] Raquel Rivas Cristopher 12/19/2014 1 [email or web address] (O) Raquel Rivas Cristopher [id number] Rauqel Rivas Cristopher 09/07/2004 1 [facility]: [employer] 112 John Nicholas [id number] Raquel Rivas Cristopher 12/19/2014 1 [email or web address] - OPEN ACCESS PLUS [id number] Raquel Rivas Cristopher [id number] Raquel Rivas Cristopher 07/19/2016 2 [facility] [employer] 111 John Nicholas [id number] Raquel Rivas Cristopher OBGyn Episode No OBEpisode recorded.
--- OUTSIDE RECORDS SUMMARY | 2024-11-20 15:43 | XMS_ITS | Encounter Summary ---
Author Organization [facility] Address [address] [place] [address] Care Team Providers Care Showroom Salesperson Name Role Phone Wendy Mathis DO Primary Care Provider + Encounter Details Date Type Department Care Team (Latest Contact Info) Description 11/05/2024 Lab Requisition [facility] - Main Lab [address] [facility] [employer] [place] [address] Michael Allen MD [address] [place] [address] Diverticulitis of intestine, part unspecified, without perforation or abscess without bleeding Social History Tobacco Use Types Packs/Day Years Used Date Smoking Tobacco: Never Assessed Comments Unknown Sex and Gender Information Value Date Recorded Sex Assigned at Not on file Legal Sex Female 2:39 PM EST Gender Identity Not on file Sexual Orientation Not on file documented as of this encounter Plan of Treatment Not on file documented as of this encounter Procedures Procedure Name Priority Date/Time Associated Diagnosis Comments COMPLETE BLOOD COUNT Routine 11/05/2024 5:07 AM EDT Diverticulitis of intestine, part unspecified, without perforation or abscess without bleeding COMPREHENSIVE METABOLIC PANEL Routine 11/05/2024 5:07 AM EDT Diverticulitis of intestine, part unspecified, without perforation or abscess without bleeding documented in this encounter Results * (ABNORMAL) Complete blood count (11/05/2024 5:07 AM EDT) WBC 9.2 4.8 - 10.8 K/[facility] LAB HEMETOLOGY METHOD 11/05/2024 1:54 PM EDT [facility] RBC 3.20(L) 3.80 - 4.80 M/mcL LAB HEMETOLOGY METHOD 11/05/2024 1:54 PM EDT [facility] Hemoglobin 10.4(L) 11.5 - 16.0 g/dL LAB HEMETOLOGY METHOD 11/05/2024 1:54 PM EDT [facility] Hematocrit 33.1(L) 35.0 - 47.0 % LAB HEMETOLOGY METHOD 11/05/2024 1:54 PM [facility] LAB MCV 105.1(H) 79.0 - 98.0 FL LAB HEMETOLOGY METHOD 11/05/2024 1:54 PM [facility] MCH 33.0(H) 27.0 - 32.0 pcg LAB HEMETOLOGY METHOD 11/05/2024 1:54 PM [facility] MCHC 31.4(L) 32.0 - 37.0 g/dL LAB HEMETOLOGY METHOD 11/05/2024 1:54 PM [facility] RDW 15.1(H) 11.0 - 15.0 % LAB HEMETOLOGY METHOD 11/05/2024 1:54 PM [facility] Platelets 164 130 - 400 K/mcL LAB HEMETOLOGY METHOD 11/05/2024 1:54 PM [facility] MPV 8.8 7.0 - 11.0 FL LAB HEMETOLOGY METHOD 11/05/2024 1:54 PM [facility] NRBC 0.0 <1.0 % LAB HEMETOLOGY METHOD 11/05/2024 1:54 PM [facility] LAB NRBC Absolute 0.00 <0.10 K/mcL LAB HEMETOLOGY METHOD 11/05/2024 1:54 PM [facility] Blood Venous blood specimen / Unknown 11/05/2024 5:07 AM EDT 11/05/2024 12:28 PM EDT us Michael Allen MD LAB BLOOD ORDERABLES Final Resu lt [facility] [address] [place] [address], [place] [phone] * (ABNORMAL) Comprehensive metabolic panel (11/05/2024 5:07 AM EDT) Sodium 140 133 - 145 mmol/L LAB CHEMISTRY METHOD 11/05/2024 4:49 PM [facility] Potassium 3.2(L) 3.5 - 5.5 mmol/L LAB CHEMISTRY METHOD 11/05/2024 4:49 PM [facility] Chloride 104 96 - 110 mmol/L LAB CHEMISTRY METHOD 11/05/2024 4:49 PM [facility] CO2 25 21 - 32 mmol/L LAB CHEMISTRY METHOD 11/05/2024 4:49 PM [facility] Anion Gap 11 3 - 11 LAB CHEMISTRY METHOD 11/05/2024 4:49 PM [facility] Glucose 54(L) 70 - 100 mg/dL LAB CHEMISTRY METHOD 11/05/2024 4:49 PM [facility] BUN 16 5 - 25 mg/dL LAB CHEMISTRY METHOD 11/05/2024 4:49 PM [facility] Creatinine 0.78 0.50 - 1.10 mg/dL LAB CHEMISTRY METHOD 11/05/2024 4:49 PM [facility] eGFR 77 >=60 mL/min/1. 73m2 LAB CHEMISTRY METHOD 11/05/2024 4:49 PM [facility] Comment:Calculation based on the Chronic Kidney Disease Epidemiology Collaboration (CKD-EPI) equation refit without adjustment for race. BUN/Creatinine Ratio 20.5 LAB CHEMISTRY METHOD 11/05/2024 4:49 PM [facility] Calcium 8.2(L) 8.5 - 10.5 mg/dL LAB CHEMISTRY METHOD 11/05/2024 4:49 PM EDT [facility] AST (SGOT) 15 10 - 42 unit/L LAB CHEMISTRY METHOD 11/05/2024 4:49 PM [facility] ALT (SGPT) 18 10 - 60 unit/L LAB CHEMISTRY METHOD 11/05/2024 4:49 PM EDT [facility] Alkaline Phosphatase 106 42 - 121 unit/L LAB CHEMISTRY METHOD 11/05/2024 4:49 PM EDT [facility] Total Protein 5.7(L) 6.0 - 8.0 g/dL LAB CHEMISTRY METHOD 11/05/2024 4:49 PM EDT [facility] Albumin 2.1(L) 3.2 - 5.0 g/dL LAB CHE[facility]STR[facility] Total Bilirubin 0.3 0.0 - 1.4 mg/dL LAB CHEMISTRY METHOD [facility] Blood Venous blood specimen / Unknown 11/05/2024 5:07 AM EDT 11/05/2024 12:28 PM EDT us Michael Allen MD LAB BLOOD ORDERABLES Final Resu lt [facility] [address] [place] [address], documented in this encounter Visit Diagnoses Diagnosis Diverticulitis of intestine, part unspecified, without perforation or abscess without bleeding documented in this encounter Care Teams Showroom Salesperson Relationship Specialty Start Date End Date Wendy Mathis DO [address] [address] PCP - General Family Medicine 05/31/17 documented as of this encounter
--- OUTSIDE RECORDS SUMMARY | 2024-11-20 15:43 | XMS_ITS | Encounter Summary ---
Author Organization [facility], Address [address] [place] [address] Phone Care Team Providers Care Data Management Name Role Phone Aakash Lundberg MD Primary Care Provider [phone] Encounter Details Date Type Department Care Team (Late Contact Info) Description 05/10/2024 Documentation Only [facility] [address] [place] [address] Estee Schafer [address] [place] [phone] Social History Tobacco Use Types Packs/Day [...] Visit [facility] [address] Opal [place] [address] [place] [phone] Uvaldo Vivar MD [address] [place] [address] [place] [address] documented as of this encounter Visit Diagnoses Not on filedocumented in this encounter Care Teams Data Management Relationship Specialty Start Date End Date Aakash Lundberg MD [address] [facility] [place] [address] PCP - General Internal Medicine 04/09/21 documented as of this encounter
--- OUTSIDE RECORDS SUMMARY | 2024-11-20 15:43 | XMS_ITS ---
Author Organization [facility] Address [address] [facility] [address] [place] [address] Phone Care Team Providers Care Financial Services Counselor Name Role Phone Kala Lundberg MD Primary Care Provider Adolfo Raymundo Unavailable Maria A Bolivar SLITTER AND REWINDER MACHINE OPERATOR Unavailable [phone] Dejah Shepard MINERAL RESOURCES INSPECTOR Unavailable Active Problems Problem Noted Date Diagnosed Date Anal cancer 06/28/2024 Cancer Staging:Clinical stage from 05/10/2024:Stage IIB(cT2, cN1c, cM0) - Signed by Adolfo Raymundo MBBS on 07/12/2024 Assessment & Plan (07/12/2024 1:51 PM EDT): IMPRESSION: This is a 78-year-old woman with recent diagnosis of squamous cell anal cancer, stage IIB (cT2,cN1c,cM0) DISCUSSION: I discussed overall impression, natural history of the disease, stage of the disease, potential treatment options, toxicity and further management in this regard. Prognosis. Anal cancer is highly curable with available standard treatment option which primarily consists of concurrent chemoradiation therapy with Mitomycin-C and 5-FU. The other option is Mitomycin-C with oral Xeloda/capecitabine chemotherapy. Xeloda is associated with more diarrhea issues and since patient has been having a lot of diarrhea issues already, I agree that 5-FU is a better option for her. I discussed side effects from chemotherapy including but not limited to allergic reactions, pancytopenia, neutropenic fever, bleeding, GI toxicity, nausea, vomiting, diarrhea, colitis, pulmonary toxicity, neurotoxicity, hepatic toxicity, renal toxicity, skin toxicity, thrombosis, infection and small risk of from these complications. Patient signed informed consent today. She has history of chronic kidney disease although her blood work from October of last year showed normal creatinine. I am going to obtain labs today. RECOMMENDATIONS: Labs today including DPD screening Patient already has a port in place She will undergo chemotherapy teaching Patient to start concurrent chemoradiation therapy on 05/25/2024. Return for follow-up on cycle 1 day 1 of treatment Thank you very much for allowing me to participate in this patient's care Current Treatment and Therapy Plans ACCESS AND FLUSH ([facility])* Plan Start Date:07/19/2024 Plan Provider:Crista Cummings CNP Linked Problems Anal cancer Treatment Medications No medications scheduled. FLUOROURACIL/MITOMYCIN-C* Plan Start Date:07/23/2024 Plan Provider:Adolfo Raymundo MBBS Linked Problems Anal cancer Treatment Medications fluorouracil (ADRUCIL) CADD pump infusion (total dose > 5000 mg, infusion time > 24 hours) (336 mL)mitoMYcin (MUTAMYCIN) HYDRATION & SUPPORTIVE CARE* Plan Start Date:08/13/2024 Plan Provider:Crista Cummings CNP Linked Problems Anal cancer Treatment Medications No medications scheduled. Past Treatment and Therapy Plans No past plan information found.
== END 2024-11-20 15:55 | disposition home or self-care (01) ==
PROVIDERS: PCP Internal Medicine; Visit Provider Physician Assistant
DX: R07.81 Pleurodynia (principal); W19.XXXA Unspecified fall, initial encounter

== ENCOUNTER → 2024-11-20 16:04 | Outpatient (BNV) | payer MEDICARE, BC, SELFPAY | PROVIDERS: PCP Internal Medicine; Visit Provider Radiology Diagnostic Radiology | DX: R07.89 Other chest pain (principal) | CPT/HCPCS: 71101 ==

== ENCOUNTER 2024-11-29 11:15 | Outpatient (AMB) | payer MEDICARE, BC, SELFPAY ==
--- NOTE | 2024-11-29 11:09 | MHC.PC.OV ---
Vital Signs 11/29/24 11:21 Height 5 ft 2 in Weight 124 lb BMI 22.7 BP 120/60 Blood Pressure Location Rt brachial Position Sitting Respiration 18 Pulse 82 Pulse Source Pulse Oximeter Temp 97.7 F Temp Source Oral Pulse Oximetry (%) 97 Oxygen Delivery Method Room Air Intake Visit Reasons: HDF Intake Note: Pt is here today for HDF. Allergies tetracycline (TETRACYCLINE) Allergy (Unknown, Verified 11/29/24 11:24) ITCHINESS, rash nitrofurantoin Allergy (Verified 11/29/24 11:24) Swelling atorvastatin (Lipitor) Adverse Reaction (Unknown, Verified 11/29/24 11:24) Muscle pain bactrim Allergy (Unknown, Uncoded 11/29/24 11:24) Elevated LFTs/Itching/Nausea fentanyl Adverse Reaction (Severe, Uncoded 11/29/24 11:24) Unconscious Tobacco use date assessed: 11/29/24 Fall risk assessment: 1 Fall in past year Last assessed Fall Risk: 11/29/24 Dental Screening Dental Screen Date: 11/29/24 Did you have a dental visit in the last 12 months?: No Did you have a dental problem in the last 6 months where you did not have access to dental care?: No Was dental information given to patient?: Patient declined HPI HPI Comments History of Present Illness Details Patient is an 79-year-old female with a past medical history of adenosquamous cell carcinoma s/p radiation, hypothyroidism, AFib on apixaban, GERD and HLD who is here for a hospital discharge follow-up. The patient went to the emergency department on October 30, 2024 complaining of 1 month of diarrhea. In the ED, her VSS, she had a leukocytosis of 14.3 H&H was 11.9/264 in a was 134 in her other labs were within normal limits. She had an abdominal pelvic CT scan which was negative for anything acute but did show cholelithiasis and proctocolitis. In the ED she was given half a L of normal saline Zofran morphine and started on Zosyn IV. She had a GI panel that came back positive for Campylobacter. GI was consulted and she underwent flex sig on 11/01 showing severe edema and moderate to severe inflammation and superficial ulcers of the rectum. Zosyn was transitioned to azithromycin. She was also started on a prednisone taper for a concern for underlying Crohn's disease. Her pain resolved and she was tolerating a regular diet She was evaluated by PT and they recommended short-term rehab and she was discharged to a SNF on November 02. Upon discharge she was to complete 6 more days of azithromycin, holding the flecainide during this time and then resuming it when the azithromycin was complete. She was started on a prednisone taper of 40 mg for 6 days then 20 mg for 7 days and then decrease by 5 mg per week. She was to take omeprazole while taking the prednisone and follow up with GI. Patient went to [facility] for rehab and was discharged on November 15. She was discharged with PT, OT and NSG by Rob. She was also given a referral to [facility]. Today, she tells me she tells me she hasn't set up an appt with [facility]. She is wanting Meals On Wheels, will be visiting some places to move to for assisted living, still unsure what she wants to do. She tells me she is not sure where she got the Campylobacter but she also tells me her son is an alcoholic and he does not wash himself well and he prepares her foods so she is wondering if that is how she got sick. She has not yet resumed the Flecinaide, we discussed that she can resume it today. She is currently taking 10mg prednisone daily, will go to 5mg prednisone daily next week as part of her taper. States her bowel movements have improved and they are formed, no nausea, vomiting or diarrhea and is back to her baseline PO intake. She is asking for a MOLST form. She will take it home and review it and bring it to her appointment next month with Dr. Lundberg to sign it with her. She also tells me that while she was at [facility], the PT and OT people told her she should get an evaluation for her urinary incontinence in case she would be a candidate for pelvic floor therapy to improve her incontinence. She states that with her cancer history, she is not sure but she tells me she has never had the urodynamic testing done and has not seen a urologist. [facility] Medical History History of diverticulitis Anal squamous cell carcinoma Hemorrhoids Current use of exterminator termite anticoagulation External hemorrhoids Hyperuricemia Vitamin D deficiency Impaired fasting glucose Inflammatory arthritis Multinodular thyroid Mixed stress and urge urinary incontinence Dyslipidemia Paroxysmal atrial fibrillation Chronic kidney disease, stage 3 Osteoporosis COPD (chronic obstructive pulmonary disease) Acquired hypothyroidism Surgical History Hx of colonoscopy S/P partial hysterectomy History of section Family History Father AAA (abdominal aortic aneurysm) CVA (cerebral vascular accident) Mother Diabetes mellitus HTN (hypertension) Gallbladder cancer Sister Diabetes mellitus Son Substance use disorder Son Substance use disorder Social History Household Members: Children Household Members Other:: son Housing: Condominium Housing Other:: [employer] Are you a primary acute care certified nursing assistant to a significant other at home: No Do you presently have visiting nurse or other home services: No Alcohol intake: current Alcohol intake frequency: does not drink Comment: steady on feet in room Patient Tobacco Use Status: Former Tobacco user Tobacco use type: Cigarette Years Smoked: 20 years e-Cigarette/Vaping Use: Never Used Second Hand Smoke Exposure: No Substance Use Type: Marijuana Advance Directives Date on File: 05/30/20 service: No Current occupational status: retired Gender identity: Female Cognitive needs: No Hearing needs: No Vision needs: Yes Questionnaire Thrive Questionnaire Date Thrive assessed: 10/30/24 AUDIT C Alcohol Use Questionnaire (AUDIT-C) 1. How often do you have a drink containing alcohol?: Never 3. How often do you have six or more drinks on one occasion?: Never Total Score: 0 CATIA-7 AMB Questionnaire CATIA-7 Date CATIA - 7 assessed: 09/08/23 Source: Developed by Drs. Orlando Forbes, Leah Yepez, Samuel Pelayo and colleagues, with an educational cuba from [employer]. Review of Systems Const All systems reviewed & are unremarkable except as noted in HPI and below Physical exam (Primary Care) Vital Signs: Last Vital Signs Temp 97.7 F 11/29/24 11:21 Pulse 82 11/29/24 11:21 Resp 18 11/29/24 11:21 BP 120/60 11/29/24 11:21 Pulse Ox 97 11/29/24 11:21 Oxygen Delivery Method Room Air 11/29/24 11:21 BMI result Body Mass Index 22.7 Tobacco/Smoking Status: Tobacco use Status Tobacco use date assessed 11/29/24 11/29/24 11:29 Patient Tobacco Use Status Former Tobacco user 11/29/24 11:10 Tobacco use type Cigarette 11/29/24 11:10 e-Cigarette/Vaping Use Never Used 11/29/24 11:10 Thrive Assessment: Date of Thrive Assessment Date Thrive assessed 05/24/24 11/29/24 11:16 Const General: cooperative, healthy appearing, comfortable, no acute distress and well developed Orientation/consciousness: patient oriented x3 Limitations: no limitations HENMT Head: Yes normal to inspection Ears: hearing grossly normal bilaterally General nose exam: Normal external nose present Face and sinus: Yes normal facial exam Eyes General: appearance normal, both eyes and all related structures Neck Neck: Yes normal visual inspection and Yes full ROM Resp Effort & Inspection: normal respiratory effort and able to speak in complete sentences Skin General skin exam: no rashes or lesions noted Neuro General: patient oriented x3 Extrem General: Yes normal to inspection Coding Level of Care Code Est Pt Level 4 (09819) Diagnoses Hospital discharge follow-up Z09 Proctocolitis K52.9 Mixed stress and urge urinary incontinence N39.46 Assessment & Plan Assessment & Plan (1) Hospital discharge follow-up: Code(s): Z09 - Encounter for follow-up examination after completed treatment for conditions other than malignant neoplasm Category: Medical Plan: - Continue on 10 mg of prednisone per day this week and transition to 5 mg of prednisone next week which will be your last week. - You may resume your flecainide as you have finished taking the azithromycin for your Campylobacter GI infection - I have sent a referral to Urology for you to have an evaluation and possible urodynamic testing, as requested - please continue to pursue the referral to [facility], obtain meals on wheels services and possibly moving to an assisted living facility. - Please review the MOLST form, discuss with your family and you can sign it with your doctor at your appt in December. (2) Proctocolitis: Code(s): K52.9 - Noninfective gastroenteritis and colitis, unspecified Category: Medical Plan: as above (3) Mixed stress and urge urinary incontinence: Code(s): N39.46 - Mixed incontinence Category: Medical Plan: as above Orders: Referrals Urology Referral C21.0 - Malignant neoplasm of anus, unspecified, N39.46 - Mixed incontinence
[2024-11-29 11:21] VITALS: BP 120/60; PULSE 82; RESP 18; TEMP 36.5; O2SAT 97; BMI 22.7
--- OUTSIDE RECORDS SUMMARY | 2024-11-29 11:57 | XMS_ITS ---
Author Organization [facility] Address [address] [facility] [address] [place] [address] Phone Care Team Providers Care Model Maker Name Role Phone Kala Lundberg MD Primary Care Provider Adolfo Raymundo Unavailable Maria A Bolivar CITY SURVEYOR Unavailable [phone] Dejah Shepard RUBBER INSULATOR Unavailable [phone] Active Problems Problem Noted Date Diagnosed Date [...]
--- OUTSIDE RECORDS SUMMARY | 2024-11-29 11:57 | XMS_ITS | Encounter Summary ---
Author Organization [facility] [address] Address [address] [place] [address] Care Team Providers Care Team Cdl Driver Name Role Phone Wendy Mathis DO Primary Care Provider + Encounter Details Date Type Department Care Team (Latest Contact Info) Description 11/05/2024 Lab Requisition [facility] Main Lab [address] [facility] [email or web address] [address] Michael Allen MD [address] [place] [address] Diverticulitis of intestine, part unspecified, [...] AM EDT) WBC 9.2 4.8 - 10.8 K/[facility] LAB HEMETOLOGY METHOD 11/05/2024 1:54 PM EDT [facility] RBC 3.20(L) 3.80 - 4.80 M/mcL LAB HEMETOLOGY METHOD 11/05/2024 1:54 PM EDT [facility] LAB Hemoglobin 10.4(L) 11.5 - 16.0 g/dL LAB HEMETOLOGY METHOD 11/05/2024 1:54 PM EDT [facility] LAB Hematocrit 33.1(L) 35.0 - 47.0 % LAB HEMETOLOGY METHOD 11/05/2024 1:54 PM [facility] LAB MCV 105.1(H) 79.0 - 98.0 FL LAB HEMETOLOGY METHOD 11/05/2024 1:54 PM [facility] LAB MCH 33.0(H) 27.0 - 32.0 pcg LAB HEMETOLOGY METHOD 11/05/2024 1:54 PM [facility] LAB MCHC 31.4(L) 32.0 - 37.0 g/dL LAB HEMETOLOGY METHOD 11/05/2024 1:54 PM [facility] LAB RDW 15.1(H) 11.0 - 15.0 % LAB HEMETOLOGY METHOD 11/05/2024 1:54 PM [facility] LAB Platelets 164 130 - 400 K/mcL LAB HEMETOLOGY METHOD 11/05/2024 1:54 PM [facility] LAB MPV 8.8 7.0 - 11.0 FL LAB HEMETOLOGY METHOD 11/05/2024 1:54 PM [facility] LAB NRBC 0.0 <1.0 % LAB HEMETOLOGY METHOD 11/05/2024 1:54 PM [facility] LAB NRBC Absolute 0.00 <0.10 K/mcL LAB HEMETOLOGY METHOD 11/05/2024 1:54 PM [facility] LAB Blood Venous blood specimen / Unknown 11/05/2024 5:07 AM EDT 11/05/2024 12:28 PM EDT us Michael Allen MD LAB BLOOD ORDERABLES Final Resu lt [facility] LAB [address] [place] [address], [place] [phone] * (ABNORMAL) Comprehensive metabolic panel (11/05/2024 5:07 AM EDT) Sodium 140 133 - 145 mmol/L LAB CHEMISTRY METHOD 11/05/2024 4:49 PM [facility] LAB Potassium 3.2(L) 3.5 - 5.5 mmol/L LAB CHEMISTRY METHOD 11/05/2024 4:49 PM [facility] LAB Chloride 104 96 - 110 mmol/L LAB CHEMISTRY METHOD 11/05/2024 4:49 PM [facility] LAB CO2 25 21 - 32 mmol/L LAB CHEMISTRY METHOD 11/05/2024 4:49 PM [facility] LAB Anion Gap 11 3 - 11 LAB CHEMISTRY METHOD 11/05/2024 4:49 PM [facility] LAB Glucose 54(L) 70 - 100 mg/dL LAB CHEMISTRY METHOD 11/05/2024 4:49 PM [facility] LAB BUN 16 5 - 25 mg/dL LAB CHEMISTRY METHOD 11/05/2024 4:49 PM [facility] LAB Creatinine 0.78 0.50 - 1.10 mg/dL LAB CHEMISTRY METHOD 11/05/2024 4:49 PM [facility] LAB eGFR 77 >=60 mL/min/1. 73m2 LAB CHEMISTRY METHOD 11/05/2024 4:49 PM [facility] LAB Comment:Calculation based on the Chronic Kidney Disease Epidemiology Collaboration (CKD-EPI) equation refit without adjustment for race. BUN/Creatinine Ratio 20.5 LAB CHEMISTRY METHOD 11/05/2024 4:49 PM [facility] LAB Calcium 8.2(L) 8.5 - 10.5 mg/dL LAB CHEMISTRY METHOD 11/05/2024 4:49 PM EDT [facility] LAB AST (SGOT) 15 10 - 42 unit/L LAB CHEMISTRY METHOD 11/05/2024 4:49 PM [facility] LAB ALT (SGPT) 18 10 - 60 unit/L LAB CHEMISTRY METHOD 11/05/2024 4:49 PM EDT [facility] LAB Alkaline Phosphatase 106 42 - 121 unit/L LAB CHEMISTRY METHOD 11/05/2024 4:49 PM EDT [facility] Total Protein 5.7(L) 6.0 - 8.0 g/dL LAB CHEMISTRY METHOD 11/05/2024 4:49 PM EDT [facility] Albumin 2.1(L) 3.2 - 5.0 g/dL LAB CHEMISTRY METHOD [facility] Total Bilirubin 0.3 0.0 - 1.4 mg/dL LAB CHEMISTRY METHOD 11/05[facility]24 4[facility] Blood Venous blood specimen / Unknown 11/05/2024 5:07 AM EDT 11/05/2024 12:28 PM EDT us Michael Allen MD LAB BLOOD ORDERABLES Final Resu lt [facility] [address] [place] [address], documented in this encounter Visit Diagnoses Diagnosis Diverticulitis of intestine, part unspecified, without perforation or abscess without bleeding documented in this encounter Care Teams Team Cdl Driver Relationship Specialty Start Date End Date Wendy Mathis DO [address] [address] PCP - General Family Medicine 05/31/17 documented as of this encounter
--- OUTSIDE RECORDS SUMMARY | 2024-11-29 11:57 | XMS_ITS | Encounter Summary ---
Author Organization [facility], Address [address] [place] [address] Phone Care Team Providers Care Ironer Hand Name Role Phone Aakash Lundberg MD Primary Care Provider [phone] Encounter Details Date Type Department Care Team (Late Contact Info) Description 05/10/2024 Documentation Only [facility] [address] [place] [address] Estee Schafer [address] [place] [phone] Social History Tobacco Use Types Packs/Day [...] Visit [facility] Dr Opal POLANCO [address] [place] [phone] Uvaldo Vivar MD [address] [place] [address] [place] [address] documented as of this encounter Visit Diagnoses Not on filedocumented in this encounter Care Teams Ironer Hand Relationship Specialty Start Date End Date Aakash Lundberg MD [address] [facility] [place] [address] PCP - General Internal Medicine 04/09/21 documented as of this encounter
== END 2024-11-29 12:33 | disposition home or self-care (01) ==
LOC: HO.HMCC 11:16
PROVIDERS: PCP Internal Medicine; Visit Provider Physician Assistant
DX: Z09 Encounter for follow-up examination after completed treatment for conditions other than malignant neoplasm (principal); K52.9 Noninfective gastroenteritis and colitis, unspecified; N39.46 Mixed incontinence

== ENCOUNTER → 2024-11-29 11:15 | Outpatient (BNVA) | payer MEDICARE, BC, SELFPAY | PROVIDERS: PCP Internal Medicine; Visit Provider Physician Assistant | DX: Z09 Encounter for follow-up examination after completed treatment for conditions other than malignant neoplasm (principal); K52.9 Noninfective gastroenteritis and colitis, unspecified; N39.46 Mixed incontinence | CPT/HCPCS: 99212 ==

== ENCOUNTER 2024-12-18 10:25 | Outpatient (AMB) | payer MEDICARE, BC, SELFPAY ==
--- OUTSIDE RECORDS SUMMARY | 2024-12-13 11:30 | XMS_ITS | Encounter Summary ---
Author Organization [facility] Address [address] [facility] [address] [place] [address] Phone Care Team Providers Care Fruit I Farmworker Name Role Phone Kala Lundberg MD Primary Care Provider Adolfo Raymundo MBBS Unavailable [phone] Maria A Bolivar PROGRAM DIR Unavailable Dejah Shepard BUSINESS ATTORNEY Unavailable Crista Cummings SHRINKING MACHINE OPERATOR Unavailable Reason for Visit * Reason Comments Follow Up Visit Anal cancer Encounter Details Date Type Department Care Team (Late st Contact Info) Description 12/13/2024 11:30 AM EDT Office Visit [facility] Rad Onc [address] [place] [address] Chantell Villarreal MD [address] [place] [phone] [email or web address] Anal cancer (Primary Dx) Social History Tobacco Use Types Packs/Day Years Used Date Smoking Tobacco: Former Cigarettes 4 20 Smokeless Tobacco: Never Alcohol Use Standard Drinks/Week Comments Not Currently 0 (1 standard drink = 0.6 oz pur e alcohol) Education Answer Date Recorded Are you interested in more education? Not on azar e 10/07/2023 Are you concerned about learning? Not on file 10/07/2023 No 10/07/2023 No 10/07/2023 Digital Access Answer Date Recorded No 10/07/2023 No 10/07/2023 Reliable internet access at home? Not on file 10/07/2023 Device with a working camera? Not on file Comments Unknown Sex and Gender Information Value Date Recorded Sex Assigned at Not on file Legal Sex Female 10:09 PM EDT Gender Identity Not on file Sexual Orientation Not on file documented as of this encounter Last Filed Vital Signs Vital Sign Reading Time Taken Comments Blood Pressure - - Pulse - - Temperature - - Respiratory Rate - - Oxygen Saturation - - Inhaled Oxygen Concentration - - Weight 57.6 kg (126 lb 14.4 oz) 025 11:35 AM EDT Height - - Body Mass Index 23.99 08/20/2024 11:17 AM EDT documented in this encounter Progress Notes * Michelle Montes MA - 12/13/2024 11:30 AM EDT Completed treatment: 09/04/24 area treated: anorectum + Ns, rectum boost Med onc: Raymundo next: 03/14 GI: [facility] in [place] next: waiting for anoscope appointment Pain: BMs: jelly-like + regular Urination: wnl Skin care: Last imagin/2 CT abd/pelv: residual hyperdense component in rectum. 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.1 Area Treated Anorectum+Nodes Delivered Dose / Rx Dose 4500 cGy / 4500 cGy Dose Per Fraction 180 cGy Delivered Fractions / Prescribed Fractions 25 / 25 Modality 6MV @ 100% Rx to cbctqd match bone Technique 3-Arc VMAT Start Date 07/23/2024 End Date 08/28/2024 Elapsed Days 37 Area Treated Rectum Boost Delivered Dose / Rx Dose 900 cGy / 900 cGy Dose Per Fraction 180 cGy Delivered Fractions / Prescribed Fractions 5 / 5 Modality 6MV @ 100% Rx to cbctqd match bone Technique 2-Arc VMAT Start Date 08/29/2024 End Date 09/04/2024 Elapsed Days 7 Progress Report: She has had a very slow but steady improvement in the pain in her anal region. She still has jellylike stools but they are becoming a little more formed. She denies any blood per rectum. She does have incontinence of stool and urine which requires her to use a pad or diaper at night. She had a recent CAT scan on November 24 which showed: 1. Decreased conspicuity of the known anal mass, with a residual hyperdense component in the rectum. No evidence for bowel obstruction. 2. Interval decreased size of the abdominal/pelvic lymphadenopathy, overall likely representing treatment response. 3. Mild prominence of the gastric and sigmoid mucosa, which may represent gastritis/colitis. CT scan of the chest showed 1. Likely new 5 mm nodule in the left lower lobe is indeterminate, but cannot exclude metastasis. Recommend 3-[address] follow-up to ensure stability. 2. Other scattered sub-5 mm lung nodules are difficult to compare to prior PET/CT due to size. 3. Previously mildly FDG-avid mediastinal lymph node is no longer visualized. Dr. Raymundo has ordered follow-up scans on March 07, 2025 Physical Exam: She has a thin but well-nourished female no acute distress. No inguinal lymphadenopathy. Pelvis without mass or lesion. Anal examination shows the visualized portion of the patient's anus to have no hemorrhagic discharge or lesion. Digital examination shows some induration and thickening at the 6 o'clock position secondary to potential probable scar tissue. It is tender to exam. Other portions of the annual ranging from 7:00 to5:00 showed no mass or lesion. Response to Radiation: Good initial response. She is still healing. The residual induration at the 6 o'clock position should soften in the next several months. Plan: Follow-up with my replacement radiation oncologist in [address] Pérez in February after her next scans. She is scheduled for a anoscopy by Dr. Armstrong in [place] on Tuesday. Chantell Villarreal MD [facility] Department of Radiation Oncology at [facility] documented in this encounter Plan of Treatment Upcoming Encounters Date Type Department Care Team (Late st Contact Info) Description 12/06/2024 Procedure Pass [address] [address] 12/06/2024 Procedure Pass [address] [address] 03/07/2025 3:15 PM EST Appointment [address] [address] Crista Cummings CNP [address] [place] [phone] [email or web address] 03/14/2025 3:20 PM EST Office Visit [facility] at [address] [address] Adolfo Raymundo MBBS [address] [place] [phone] [email or web address] 06/12/2025 1:30 PM EST Office Visit [facility] Rad Onc [address] [place] [address] Chantell Villarreal MD [address] [place] [phone] [email or web address] documented as of this encounter Visit Diagnoses Diagnosis Anal cancer- Primary Malignant neoplasm of anus, unspecified site documented in this encounter Care Teams Fruit I Farmworker Relationship Specialty Start Date End Date Kala Lundberg MD [address] [place] [address] PCP - General Internal Medicine 06/22/24 Adolfo Raymundo MBBS [facility] [place] [address] [email or web address] Medical [email or web address] 07/02/24 Maria A Bolivar FNP [address] [place] [phone] [email or web address] Nurse Practitioner Medical Oncology 07/18/24 Dejah Shepard NP [address] [place] [phone] [email or web address] Nurse Practitioner 08/14/24 Crista Cummings CNP [address] [place] [phone] [email or web address] Nurse Practitioner 11/29/24 documented as of this encounter Additional Source Comments The information contained in this document represents components of the legal health record. It is not the complete legal health record.[facility]
[2024-12-18 10:48] VITALS: BP 128/66; PULSE 92; TEMP 36.4; O2SAT 97; BMI 23.0
--- NOTE | 2024-12-18 10:48 | AM.OFFWIN_ITS ---
Intake Vital Signs 12/18/24 10:48 Height 5 ft 2 in Weight 126 lb BMI 23.0 BP 128/66 Blood Pressure Location Rt brachial Position Sitting Pulse 92 Pulse Source Pulse Oximeter Temp 97.5 F Temp Source Oral Pulse Oximetry (%) 97 Oxygen Delivery Method Room Air Intake Visit Reasons: EP-Rt hip pain Intake Note: pt presents with right hip pain for 2 weeks- denies injury Patient Tobacco Use Status: Former Tobacco user Allergies tetracycline (TETRACYCLINE) Allergy (Unknown, Verified 12/18/24 10:48) ITCHINESS, rash nitrofurantoin Allergy (Verified 12/18/24 10:48) Swelling atorvastatin (Lipitor) Adverse Reaction (Unknown, Verified 12/18/24 10:48) Muscle pain bactrim Allergy (Unknown, Uncoded 11/29/24 11:24) Elevated LFTs/Itching/Nausea fentanyl Adverse Reaction (Severe, Uncoded 11/29/24 11:24) Unconscious Do you need a note to return to daycare/school/sports/work: No HPI HPI Comments History of Present Illness Details This is an 79 years old female with a past medical history significant for adenosquamous cell carcinoma status post radiation, hypothyroidism, pa roxysmal atrial fibrillation currently maintained on Eliquis, GERD and hyperlipidemia presenting from home for evaluation of right hip pain. Patient denies any injury or trauma preceding the onset of her discomfort but noticed pain approximately 2 weeks ago after sitting on her couch and taking a nap while sitting upright. Patient has taken Tylenol [id number] twice daily for the past 3-4 days without relief for discomfort. Patient denies any radiation of pain into her right lower extremity but reports that ambulation worsens her discomfort, which she describes as a dull ache. [facility] Medical History History of diverticulitis Anal squamous cell carcinoma Hemorrhoids Current use of watermelon inspector anticoagulation External hemorrhoids Hyperuricemia Vitamin D deficiency Impaired fasting glucose Inflammatory arthritis Multinodular thyroid Mixed stress and urge urinary incontinence Dyslipidemia Paroxysmal atrial fibrillation Chronic kidney disease, stage 3 Osteoporosis COPD (chronic obstructive pulmonary disease) Acquired hypothyroidism Surgical History Hx of colonoscopy S/P partial hysterectomy History of section Family History Father AAA (abdominal aortic aneurysm) CVA (cerebral vascular accident) Mother Diabetes mellitus HTN (hypertension) Gallbladder cancer Sister Diabetes mellitus Son Substance use disorder Son Substance use disorder Social History Household Members: Children Household Members Other:: son Housing: Condominium Housing Other:: [employer] Are you a primary manager care management to a significant other at home: No Do you presently have visiting nurse or other home services: No Alcohol intake: current Alcohol intake frequency: does not drink Comment: steady on feet in room Patient Tobacco Use Status: Former Tobacco user Tobacco use type: Cigarette Years Smoked: 20 years e-Cigarette/Vaping Use: Never Used Second Hand Smoke Exposure: No Substance Use Type: Marijuana Advance Directives Date on File: 05/30/20 service: No Current occupational status: retired Gender identity: Female Cognitive needs: No Hearing needs: No Vision needs: Yes Review of Systems Const All systems reviewed & are unremarkable except as noted in HPI and below Denies frequent falls, Denies headache(s), Denies lethargy and Denies malaise ENT Denies headache(s) Musc Reports back pain, Reports arthralgias (right hip), Denies limited range of motion, Denies muscle weakness, Denies numbness, Denies radiating pain into limb and Denies tingling Skin/Breast Reports system reviewed and no additional complaints, except as documented Neuro Reports no additional complaints, Denies confusion, Denies frequent falls, Denies headache(s), Denies numbness and Denies tingling Psych Reports no additional complaints and Denies confusion Physical Exam Vital Signs: Last Vital Signs Temp 97.5 F 12/18/24 10:48 Pulse 92 12/18/24 10:48 BP 128/66 12/18/24 10:48 Pulse Ox 97 12/18/24 10:48 Oxygen Delivery Method Room Air 12/18/24 10:48 BMI result Body Mass Index 23.0 Const General: cooperative, healthy appearing, comfortable, no acute distress, well developed, alert, awake and Physically active; No acute distress, confusion or lethargic Nutritional Appearance: well nourished Orientation/consciousness: patient oriented x3, No confusion and No lethargic Limitations: ambulation with cane General: Yes no CVA tenderness Back/Spine/Pelvis Back: no CVA tenderness Thoracic/Lumbar Spine: thoracic and lumbar spine normal to inspection, thoraco- lumbar ROM normal, paraspinal muscle tenderness on the right in the lower lumbar, No thoraco-lumbar spasm, No thoracic spinal tenderness and No lumbar spinal tenderness Sacroiliac joints: on the right (minimal right sciatic notch tenderness) and on the left nontender Skin General skin exam: no rashes or lesions noted Neuro General: patient oriented x3, moves all extremities (ambulating independently with cane), Normal light touch and pain sensation, no focal motor deficits and No confusion Motor exam (neuro): 5/5 motor strength present throughout and Normal motor muscle tone present throughout Extrem Other: There is no pain elicited with internal or external rotation of the hips against resistance bilaterally; there is right hip tenderness laterally with right hip flexion against resistance. Right lower extremity: normal to inspection, full ROM and hip/thigh Details: normal to inspection, normal ROM and other (right hip pain with right hip flexion against resistance only); no tenderness and no deformity; no edema and joint enlargement noted Psych Appearance: grossly normal Mental Status: mental status grossly normal Insight: Good insight present (Psych) Judgement: Good judgement present (Psych) Assessment & Plan Assessment & Plan (1) Right lumbar pain: Comment: Patient's pain is muscular in nature and located in the right lower lumbar region with no tenderness to palpation of the right hip. Patient will be placed on a short burst of prednisone therapy and physical therapy evaluation will be requested. Code(s): M54.50 - Low back pain, unspecified Plan: Prednisone 40 mg daily x4 days; physical therapy intake is pending. Orders: Orders PT Evaluation and Treatment Today M54.50 - Low back pain, unspecified Medications: New prednisone 40 mg (2 x 20 mg) PO DAILY 8 tabs 0RF Coding Level of Care Code Est Pt Level 3 (09158) Diagnoses Right lumbar pain M54.50 Time Spent (min) 20
--- OUTSIDE RECORDS SUMMARY | 2024-12-18 11:08 | XMS_ITS | Encounter Summary ---
Author Organization [facility] Address [address] [facility] [address] [place] [address] Phone Care Team Providers Care Gem Stone Cutter Name Role Phone Kala Lundberg MD Primary Care Provider Adolfo Raymundo MBBS Unavailable Maria A Bolivar BUTADIENE CONVERTER UTILITY OPERATOR Unavailable Dejah Shepard BIOFUELS PLANT MANAGER Unavailable EmilianoDamasoen DOPE HEATER Unavailable Reason for Visit * Reason Onset Date Comments check in with pt's 08/01/2024 Encounter Details Date Type Department Care Team (Late st Contact Info) Description 08/01/2024 Telephone [facility] Rad Onc [address] [place] [address] [phone] Chantell Villarreal MD [address] [place] [address] [phone] [email or web address] check in with pt's Social History Tobacco Use Types Packs/Day Years [...] st Contact Info) Description 12/06/2024 Procedure Pass [address] [address] 12/06/2024 Procedure Pass [address] [address] 03/07/2025 3:15 PM EST Appointment [address] [address] Crista Cummings CNP [address] [place] [phone] [email or web address] 03/14/2025 3:20 PM EST Office Visit [facility] at [address] [address] Adolfo Raymundo MBBS [address] [place] [phone] [email or web address] 06/12/2025 1:30 PM EST Office Visit [facility] Rad [address] [address] Chantell Villarreal MD [address] [place] [phone] documented as of this encounter Visit Diagnoses Not on filedocumented in this encounter Care Teams Gem Stone Cutter Relationship Specialty Start Date End Date Kala Lundberg MD [address] [place] [address] PCP - General Internal Medicine 06/22/24 Adolfo Raymundo MBBS [facility] [address] [place] [address] [email or web address] 07/02/24 Maria A Bolivar FNP [address] [place] [phone] [email or web address] Nurse Practitioner Medical Oncology 07/18/24 Dejah Shepard NP [address] [place] [phone] [email or web address] Nurse Practitioner 08/14/24 Crista Cummings CNP [address] [place] [phone] [email or web address] Nurse Practitioner 11/29/24 documented as of this encounter Additional Source Comments The information contained in this document represents components of the legal health record. It is not the complete legal health record.[facility]
--- OUTSIDE RECORDS SUMMARY | 2024-12-18 11:08 | XMS_ITS | Encounter Summary ---
Author Organization [facility] Address [address] [place] [address] Care Team Providers Care Caterpillar Mechanic Name Role Phone Wendy Mathis DO Primary Care Provider + Encounter Details Date Type Department Care Team (Latest Contact Info) Description 11/14/2024 Lab Requisition [facility] - Main Lab [address] [facility] [employer] [place] [address] Michael Allen MD [address] [place] [address] Diverticulitis of intestine, part unspecified, [...] Associated Diagnosis Comments COMPLETE BLOOD COUNT Routine 11/15/2024 5:31 AM EDT Diverticulitis of intestine, part unspecified, without perforation or abscess without bleeding BASIC METABOLIC PANEL Routine 11/15/2024 5:31 AM EDT Diverticulitis of intestine, part unspecified, without perforation or abscess without bleeding documented in this encounter Results * (ABNORMAL) Complete blood count (11/15/2024 5:31 AM EDT) WBC 6.9 4.8 - 10.8 K/mcL LAB HEMETOLOGY METHOD 11/15/2024 11:37 AM EDT [facility] RBC 3.10(L) 3.80 - 4.80 M/mcL LAB HEMETOLOGY METHOD 11/15/2024 11:37 AM [facility] LAB Hemoglobin 9.8(L) 11.5 - 16.0 g/dL LAB HEMETOLOGY METHOD 11/15/2024 11:37 AM [facility] LAB Hematocrit 32.0(L) 35.0 - 47.0 % LAB HEMETOLOGY METHOD 11/15/2024 11:37 AM [facility] LAB MCV 102.9(H) 79.0 - 98.0 FL LAB HEMETOLOGY METHOD 11/15/2024 11:37 AM [facility] LAB MCH 31.5 27.0 - 32.0 pcg LAB HEMETOLOGY METHOD 11/15/2024 11:37 AM [facility] LAB MCHC 30.6(L) 32.0 - 37.0 g/dL LAB HEMETOLOGY METHOD 11/15/2024 11:37 AM [facility] LAB RDW 14.8 11.0 - 15.0 % LAB HEMETOLOGY METHOD 11/15/2024 11:37 AM [facility] LAB Platelets 139 130 - 400 K/mcL LAB HEMETOLOGY METHOD 11/15/2024 11:37 AM [facility] LAB MPV 9.3 7.0 - 11.0 FL LAB HEMETOLOGY METHOD 11/15/2024 11:37 AM [facility] LAB NRBC 0.0 <1.0 % LAB HEMETOLOGY METHOD 11/15/2024 11:37 AM [facility] LAB NRBC Absolute 0.00 <0.10 K/mcL LAB HEMETOLOGY METHOD 11/15/2024 11:37 AM [facility] LAB Blood Venous blood specimen / Unknown Venipuncture / Unknown 11/15/2024 5:31 AM EDT 11/15/2024 11:24 AM EDT us Michael Allen MD LAB BLOOD ORDERABLES Final Resu lt [facility] [address] [place] [address], [place] [phone] * Basic metabolic panel (11/15/2024 5:31 AM EDT) Sodium 138 133 - 145 mmol/L LAB CHEMISTRY METHOD 11/15/2024 12:11 PM [facility] LAB Potassium 4.0 3.5 - 5.5 mmol/L LAB CHEMISTRY METHOD 11/15/2024 12:11 PM [facility] LAB Chloride 103 96 - 110 mmol/L LAB CHEMISTRY METHOD 11/15/2024 12:11 PM [facility] CO2 29 21 - 32 mmol/L LAB CHEMISTRY METHOD 11/15/2024 12:11 PM [facility] LAB Anion Gap 6 3 - 11 LAB CHEMISTRY METHOD 11/15/2024 12:11 PM [facility] LAB Glucose 70 70 - 100 mg/dL LAB CHEMISTRY METHOD 11/15/2024 12:11 PM [facility] BUN 22 5 - 25 mg/dL LAB CHEMISTRY METHOD 11/15/2024 12:11 PM [facility] LAB Creatinine 0.74 0.50 - 1.10 mg/dL LAB CHEMISTRY METHOD 11/15/2024 12:11 PM [facility] LAB eGFR 82 >=60 mL/min/1. 73m2 LAB CHEMISTRY METHOD 11/15/2024 12:11 PM [facility] LAB Comment:Calculation based on the Chronic Kidney Disease Epidemiology Collaboration (CKD-EPI) equation refit without adjustment for race. BUN/Creatinine Ratio 29.7 LAB CHEMISTRY METHOD 11/15/2024 12:11 PM [facility] LAB Calcium 8.8 8.5 - 10.5 mg/dL LAB CHEMISTRY METHOD 11/15/2024 12:11 PM EDT [facility] LAB Blood Venous blood specimen / Unknown Venipuncture / Unknown 11/15/2024 5:31 AM EDT 11/15/2024 11:24 AM EDT us Michael Allen MD LAB BLOOD ORDERABLES Final Resu lt [facility] LAB [address] [place] [address], documented in this encounter Visit Diagnoses Diagnosis Diverticulitis of intestine, part unspecified, without perforation or abscess without bleeding documented in this encounter Care Teams Caterpillar Mechanic Relationship Specialty Start Date End Date Wendy Mathis DO [address] [address] PCP - General Family Medicine 05/31/17 documented as of this encounter
--- OUTSIDE RECORDS SUMMARY | 2024-12-18 11:08 | XMS_ITS | Encounter Summary ---
Author Organization [facility] Address [address] [place] [address] Care Team Providers Care Parking Meter Mechanic Name Role Phone Wendy Mathis DO Primary Care Provider + Encounter Details Date Type Department Care Team (Latest Contact Info) Description 11/05/2024 Lab Requisition [facility] - Main Lab [address] [facility] [place] [address] Michael Allen MD [address] [place] [address] Diverticulitis of intestine, part unspecified, [...] AM EDT) WBC 9.2 4.8 - 10.8 K/[facility] LAB HEMETOLOGY METHOD 11/05/2024 1:54 PM EDT [facility] RBC 3.20(L) 3.80 - 4.80 M/mcL LAB HEMETOLOGY METHOD 11/05/2024 1:54 PM EDT [facility] LAB Hemoglobin 10.4(L) 11.5 - 16.0 g/dL LAB HEMETOLOGY METHOD 11/05/2024 1:54 PM EDT [facility] LAB Hematocrit 33.1(L) 35.0 - 47.0 % LAB HEMETOLOGY METHOD 11/05/2024 1:54 PM [facility] LAB MCV 105.1(H) 79.0 - 98.0 FL LAB HEMETOLOGY METHOD 11/05/2024 1:54 PM [facility] LAB MCH 33.0(H) 27.0 - 32.0 pcg LAB HEMETOLOGY METHOD 11/05/2024 1:54 PM [facility] LAB MCHC 31.4(L) 32.0 - 37.0 g/dL LAB HEMETOLOGY METHOD 11/05/2024 1:54 PM [facility] LAB RDW 15.1(H) 11.0 - 15.0 % LAB HEMETOLOGY METHOD 11/05/2024 1:54 PM [facility] LAB Platelets 164 130 - 400 K/mcL LAB HEMETOLOGY METHOD 11/05/2024 1:54 PM [facility] LAB MPV 8.8 7.0 - 11.0 FL LAB HEMETOLOGY METHOD 11/05/2024 1:54 PM [facility] LAB NRBC 0.0 <1.0 % LAB HEMETOLOGY METHOD 11/05/2024 1:54 PM [facility] LAB NRBC Absolute 0.00 <0.10 K/mcL LAB HEMETOLOGY METHOD 11/05/2024 1:54 PM [facility] LAB Blood Venous blood specimen / Unknown 11/05/2024 5:07 AM EDT 11/05/2024 12:28 PM EDT us Michael Allen MD LAB BLOOD ORDERABLES Final Resu lt [facility] [address] [place] [address], [place] [phone] * (ABNORMAL) Comprehensive metabolic panel (11/05/2024 5:07 AM EDT) Sodium 140 133 - 145 mmol/L LAB CHEMISTRY METHOD 11/05/2024 4:49 PM [facility] LAB Potassium 3.2(L) 3.5 - 5.5 mmol/L LAB CHEMISTRY METHOD 11/05/2024 4:49 PM [facility] LAB Chloride 104 96 - 110 mmol/L LAB CHEMISTRY METHOD 11/05/2024 4:49 PM [facility] LAB CO2 25 21 - 32 mmol/L LAB CHEMISTRY METHOD 11/05/2024 4:49 PM [facility] LAB Anion Gap 11 3 - 11 LAB CHEMISTRY METHOD 11/05/2024 4:49 PM [facility] LAB Glucose 54(L) 70 - 100 mg/dL LAB CHEMISTRY METHOD 11/05/2024 4:49 PM [facility] LAB BUN 16 5 - 25 mg/dL LAB CHEMISTRY METHOD 11/05/2024 4:49 PM [facility] LAB Creatinine 0.78 0.50 - 1.10 mg/dL LAB CHEMISTRY METHOD 11/05/2024 4:49 PM [facility] LAB eGFR 77 >=60 mL/min/1. 73m2 LAB CHEMISTRY METHOD 11/05/2024 4:49 PM [facility] LAB Comment:Calculation based on the Chronic Kidney Disease Epidemiology Collaboration (CKD-EPI) equation refit without adjustment for race. BUN/Creatinine Ratio 20.5 LAB CHEMISTRY METHOD 11/05/2024 4:49 PM [facility] LAB Calcium 8.2(L) 8.5 - 10.5 mg/dL LAB CHEMISTRY METHOD 11/05/2024 4:49 PM EDT [facility] LAB AST (SGOT) 15 10 - 42 unit/L LAB CHEMISTRY METHOD 11/05/2024 4:49 PM [facility] ALT (SGPT) 18 10 - 60 unit/L LAB CHEMISTRY METHOD 11/05/2024 4:49 PM EDT [facility] Alkaline Phosphatase 106 42 - 121 unit/L LAB CHEMISTRY METHOD 11/05/2024 4:49 PM EDT [facility] Total Protein 5.7(L) 6.0 - 8.0 g/dL LAB CHEMISTRY METHOD 11/05/2024 4:49 PM EDT [facility] Albumin 2.1(L) 3.2 - 5.0 g/dL LAB CHEMISTRY [facility] Total Bilirubin 0.3 0.0 - 1.4 mg/dL LAB CHEMISTRY METHOD 11/05/2024 4[facility] Blood Venous blood specimen / Unknown 11/05/2024 5:07 AM EDT 11/05/2024 12:28 PM EDT us Michael Allen MD LAB BLOOD ORDERABLES Final Resu lt [facility] [address] [place] [address], documented in this encounter Visit Diagnoses Diagnosis Diverticulitis of intestine, part unspecified, without perforation or abscess without bleeding documented in this encounter Care Teams Parking Meter Mechanic Relationship Specialty Start Date End Date Wendy Mathis DO [address] [address] PCP - General Family Medicine 05/31/17 documented as of this encounter
--- OUTSIDE RECORDS SUMMARY | 2024-12-18 11:08 | XMS_ITS | Encounter Summary ---
Author Organization [facility] Address [address] [place] [address] Care Team Providers Care Porcelain Slusher Name Role Phone Wendy Mathis DO Primary Care Provider + Encounter Details Date Type Department Care Team (Latest Contact Info) Description 11/03/2024 Lab Requisition [facility] - Main Lab [address] [facility] [place] [address] Michael Allen MD [address] [place] [address] Diverticulitis of small intestine with perforation and abscess without bleeding Social History Tobacco Use [...] Associated Diagnosis Comments COMPLETE BLOOD COUNT Routine 11/03/2024 5:09 AM EDT Diverticulitis of small intestine with perforation and abscess without bleeding COMPREHENSIVE METABOLIC PANEL Routine 11/03/2024 5:09 AM EDT Diverticulitis of small intestine with perforation and abscess without bleeding documented in this encounter Results * (ABNORMAL) Comprehensive metabolic panel (11/03/2024 5:09 AM EDT) Sodium 141 133 - 145 mmol/L LAB CHEMISTRY METHOD 11/03/2024 1:02 PM EDT [facility] Potassium 4.2 3.5 - 5.5 mmol/L LAB CHEMISTRY METHOD 11/03/2024 1:[address] [facility] Chloride 108 96 - 110 mmol/L LAB CHEMISTRY METHOD 11/03/2024 1:[address] [facility] CO2 27 21 - 32 mmol/L LAB CHEMISTRY METHOD 11/03/2024 1:[address] [facility] Anion Gap 6 3 - 11 LAB CHEMISTRY METHOD 11/03/2024 1:[address] [facility] Glucose 95 70 - 100 mg/dL LAB CHEMISTRY METHOD 11/03/2024 1:[address] [facility] BUN 18 5 - 25 mg/dL LAB CHEMISTRY METHOD 11/03/2024 1:[address] [facility] Creatinine 0.88 0.50 - 1.10 mg/dL LAB CHEMISTRY METHOD 11/03/2024 1:[address] [facility] LAB eGFR 67 >=60 mL/min/1. 73m2 LAB CHEMISTRY METHOD 11/03/2024 1:[address] [facility] LAB Comment:Calculation based on the Chronic Kidney Disease Epidemiology Collaboration (CKD-EPI) equation refit without adjustment for race. BUN/Creatinine Ratio 20.5 LAB CHEMISTRY METHOD 11/03/2024 1:02 [facility] Calcium 9.1 8.5 - 10.5 mg/dL LAB CHEMISTRY METHOD 11/03/2024 1:[address] [facility] AST (SGOT) 12 10 - 42 unit/L LAB CHEMISTRY METHOD 11/03/2024 1:[address] [facility] ALT (SGPT) 10 10 - 60 unit/L LAB CHEMISTRY METHOD 11/03/2024 1:[address] [facility] Alkaline Phosphatase 152(H) 42 - 121 unit/L LAB CHEMISTRY METHOD 11/03/2024 1:[address] [facility] Total Protein 6.0 6.0 - 8.0 g/dL LAB CHEMISTRY METHOD 11/03/2024 1:02 PM EDT [facility] Albumin 2.1(L) 3.2 - 5.0 g/dL LAB CHEMISTRY METHOD 11/03/2024 1:02 PM EDT [facility] LAB Total Bilirubin 0.2 0.0 - 1.4 mg/dL LAB CHEMISTRY METHOD 11/03/2024 1:02 PM EDT [facility] LAB Blood Venous blood specimen / Unknown Venipuncture / Unknown 11/03/2024 5:09 AM EDT 11/03/2024 12:27 PM EDT us Michael Allen MD LAB BLOOD ORDERABLES Final Resu lt [facility] [address] [place] [address], [place] [phone] * (ABNORMAL) Complete blood count (11/03/2024 5:09 AM EDT) WBC 11.2(H) 4.8 - 10.8 K/mcL LAB HEMETOLOGY METHOD 11/03/2024 12:44 PM EDT [facility] RBC 3.20(L) 3.80 - 4.80 M/mcL LAB HEMETOLOGY METHOD 11/03/2024 12:[address] [facility] Hemoglobin 10.1(L) 11.5 - 16.0 g/dL LAB HEMETOLOGY METHOD 11/03/2024 12:44 PM EDT [facility] Hematocrit 33.4(L) 35.0 - 47.0 % LAB HEMETOLOGY METHOD 11/03/2024 12:44 PM EDT [facility] MCV 105.4(H) 79.0 - 98.0 FL LAB HEMETOLOGY METHOD [facility] MCH 31.9 27.0 - 32.0 pcg LAB HEMETOLOGY METHOD 11/03/2024 12:44 PM EDT [facility] MCHC 30.2(L) 32.0 - 37.0 g/dL LAB HEMETOLOGY METHOD 11/03/2024 12:44 PM EDT [facility] RDW 15.0 11.0 - 15.0 % LAB HEMETOLOGY METHOD 11/03/2024 12:44 PM EDT [facility] Platelets 224 130 - 400 K/mcL LAB HEMETOLOGY METHOD 11/03/2024 12:44 PM EDT [facility] MPV 9.0 7.0 - 11.0 FL LAB HEMETOLOGY METHOD 11/03/2024 12:44 PM EDT [facility] NRBC 0.0 <1.0 % LAB HEMETOLOGY METHOD 11/03/2024 12:44 PM EDT [facility] NRBC Absolute 0.00 <0.10 K/mcL LAB HEMETOLOGY METHOD 11/03/2024 12:44 PM EDT [facility] LAB Blood Venous blood specimen / Unknown Venipuncture / Unknown 11/03/2024 5:09 AM EDT 11/03/2024 12:27 PM EDT us Michael Allen MD LAB BLOOD ORDERABLES Final Resu lt [facility] [address] [place] [address], documented in this encounter Visit Diagnoses Diagnosis Diverticulitis of small intestine with perforation and abscess without bleeding documented in this encounter Care Teams Porcelain Slusher Relationship Specialty Start Date End Date Wendy Mathis DO [address] [facility] [address] [place] [address] PCP - General Family Medicine 05/31/17 documented as of this encounter
--- OUTSIDE RECORDS SUMMARY | 2024-12-18 11:08 | XMS_ITS ---
Author Organization [facility] Address [address] [facility] [address] [place] [address] Phone Care Team Providers Care Operations Liaison Name Role Phone Kala Lundberg MD Primary Care Provider Adolfo Raymundo Unavailable Mari aA BolivarP Unavailable Dejah Shepard LINEN SUPPLY LOAD BUILDER Unavailable Crista Cummings HOSPITAL CHIEF EXECUTIVE OFFICER Unavailable Active Problems Problem Noted Date Diagnosed Date Anal cancer 06/28/2024 Cancer Staging:Clinical stage from 05/10/2024:Stage IIB(cT2, cN1c, cM0) - Signed by Adolfo Raymnudo MBBS on 07/12/2024 Assessment & Plan (07/12/2024 [...]
--- OUTSIDE RECORDS SUMMARY | 2024-12-18 11:08 | XMS_ITS | Encounter Summary ---
Author Organization [facility] Address [address] [facility] [address] [place] [address] Phone Care Team Providers Care Warehouse Selector Name Role Phone Kala Lundberg MD Primary Care Provider Adolfo Raymundo MBBS Unavailable Maria A Bolivar FLY FRAME TENDER Unavailable [phone] Dejah Shepard BOX CUTTER Unavailable [phone] Crista Cummings REPRESENTATIVE Unavailable Encounter Details Date Type Department Care Team (Late st Contact Info) Description 10/25/2024 Procedure Pass [facility], Ct Scan - [address] [id number] Social History Tobacco Use Types Packs/Day Years [...] st Contact Info) Description 12/06/2024 Procedure Pass [address] [address] 12/06/2024 Procedure Pass [address] [address] 03/07/2025 3:15 PM EST Appointment [address] [address] Crista Cummings, MANJINDER [address] [place] [phone] 03/14/2025 3:20 PM EST Office Visit [facility] at [address] [address] Adolfo Raymundo MBBS [address] [place] [phone] [email or web address] 06/12/2025 1:30 PM EST Office Visit [facility] At [facility] Rad Onc [address] [place] [address] Chantell Villarreal MD [address] [place] [phone] documented as of this encounter Visit Diagnoses Not on filedocumented in this encounter Care Teams Warehouse Selector Relationship Specialty Start Date End Date Kala Lundberg MD [address] [place] [address] PCP - General Internal Medicine 06/22/24 Adolfo Raymundo MBBS [address] [place] [address] [email or web address] Medical Oncology 07/02/24 Maria A Bolivar FNP [address] [place] [phone] [email or web address] Nurse Practitioner Medical Oncology 07/18/24 Dejah Shepard NP [address] [place] [phone] [email or web address] Nurse Practitioner 08/14/24 Crista Cummings CNP [address] [place] [phone] [email or web address] Nurse Practitioner 11/29/24 documented as of this encounter Additional Source Comments The information contained in this document represents components of the legal health record. It is not the complete legal health record.[facility]
--- OUTSIDE RECORDS SUMMARY | 2024-12-18 11:08 | XMS_ITS | Encounter Summary ---
Author Organization [facility], Address [address] [place] [address] Phone Care Team Providers Care Skidway Worker Name Role Phone Aakash Lundberg MD Primary Care Provider [phone] Encounter Details Date Type Department Care Team (Late Contact Info) Description 05/10/2024 Documentation Only [facility] [address] [place] [address] Estee Schafer [address] [place] [address] Social History Tobacco Use Types Packs/Day [...] Visit [facility] [address] Opal POLANCO [address] [place] [phone] Uvaldo Vivar MD [address] [place] [address] [place] [address] documented as of this encounter Visit Diagnoses Not on filedocumented in this encounter Care Teams Skidway Worker Relationship Specialty Start Date End Date Aakash Lundberg MD [address] [facility] [place] [address] PCP - General Internal Medicine 04/09/21 documented as of this encounter
--- OUTSIDE RECORDS SUMMARY | 2024-12-18 11:08 | XMS_ITS | Encounter Summary ---
Author Organization [facility] Address [address] [place] [address] Care Team Providers Care Automatic Bow Maker Machine Tender Name Role Phone Wendy Mathis DO Primary Care Provider + Encounter Details Date Type Department Care Team (Latest Contact Info) Description 11/10/2024 Lab Requisition [facility] - Main Lab [address] [facility] [place] [address] Michael Allen MD [address] [place] [address] Diverticulitis of intestine, part unspecified, [...] Associated Diagnosis Comments COMPLETE BLOOD COUNT Routine 11/12/2024 4:58 AM EDT Diverticulitis of intestine, part unspecified, without perforation or abscess without bleeding COMPREHENSIVE METABOLIC PANEL Routine 11/12/2024 4:58 AM EDT Diverticulitis of intestine, part unspecified, without perforation or abscess without bleeding documented in this encounter Results * (ABNORMAL) Comprehensive metabolic panel (11/12/2024 4:58 AM EDT) Sodium 136 133 - 145 mmol/L LAB CHEMISTRY METHOD 11/12/2024 11:01 AM EDT [facility] Potassium 4.1 3.5 - 5.5 mmol/L LAB CHEMISTRY METHOD 11/12/2024 11:01 AM [facility] Chloride 103 96 - 110 mmol/L LAB CHEMISTRY METHOD 11/12/2024 11:01 AM [facility] CO2 28 21 - 32 mmol/L LAB CHEMISTRY METHOD 11/12/2024 11:01 AM [facility] Anion Gap 5 3 - 11 LAB CHEMISTRY METHOD 11/12/2024 11:01 AM [facility] Glucose 65(L) 70 - 100 mg/dL LAB CHEMISTRY METHOD 11/12/2024 11:01 AM [facility] BUN 21 5 - 25 mg/dL LAB CHEMISTRY METHOD 11/12/2024 11:01 AM [facility] Creatinine 0.79 0.50 - 1.10 mg/dL LAB CHEMISTRY METHOD 11/12/2024 11:01 AM [facility] eGFR 76 >=60 mL/min/1. 73m2 LAB CHEMISTRY METHOD 11/12/2024 11:01 AM [facility] Comment:Calculation based on the Chronic Kidney Disease Epidemiology Collaboration (CKD-EPI) equation refit without adjustment for race. BUN/Creatinine Ratio 26.6 LAB CHEMISTRY METHOD 11/12/2024 11:01 AM [facility] Calcium 8.2(L) 8.5 - 10.5 mg/dL LAB CHEMISTRY METHOD 11/12/2024 11:01 AM [facility] AST (SGOT) 15 10 - 42 unit/L LAB CHEMISTRY METHOD 11/12/2024 11:01 AM [facility] ALT (SGPT) 37 10 - 60 unit/L LAB CHEMISTRY METHOD 11/12/2024 11:01 AM [facility] Comment:Results verified by repeat testing Alkaline Phosphatase 108 42 - 121 unit/L LAB CHEMISTRY METHOD 11/12/2024 11:01 AM [facility] Total Protein 5.6(L) 6.0 - 8.0 g/dL LAB CHEMISTRY METHOD 11/12/2024 11:01 AM EDT [facility] Albumin 2.4(L) 3.2 - 5.0 g/dL LAB CHEMISTRY METHOD 11/12/2024 11:01 AM EDT [facility] Total Bilirubin 0.3 0.0 - 1.4 mg/dL LAB CHEMISTRY METHOD 11/12/2024 11:01 AM EDT [facility] LAB Blood Venous blood specimen / Unknown Venipuncture / Unknown 11/12/2024 4:58 AM EDT 11/12/2024 9:55 AM EDT Michael Allen MD LAB BLOOD ORDERABLES Final Resu lt [facility] [address] [place] [address], * (ABNORMAL) Complete blood count (11/12/2024 4:58 AM EDT) WBC 6.7 4.8 - 10.8 K/mcL LAB HEMETOLOGY METHOD 11/12/2024 10:22 AM [facility] RBC 3.20(L) 3.80 - 4.80 M/mcL LAB HEMETOLOGY METHOD 11/12/2024 10:22 AM [facility] Hemoglobin 10.1(L) 11.5 - 16.0 g/dL LAB HEMETOLOGY METHOD 11/12/2024 10:22 AM [facility] Hematocrit 32.4(L) 35.0 - 47.0 % LAB HEMETOLOGY METHOD 11/12/2024 10:22 AM [facility] MCV 101.3(H) 79.0 - 98.0 FL LAB HEMETOLOGY METHOD 11/12/2024 10:22 AM [facility] MCH 31.6 27.0 - 32.0 pcg LAB HEMETOLOGY METHOD 11/12/2024 10:22 AM EDT [facility] MCHC 31.2(L) 32.0 - 37.0 g/dL LAB HEMETOLOGY METHOD 11/12/2024 10:22 AM EDT [facility] RDW 14.8 11.0 - 15.0 % LAB HEMETOLOGY METHOD 11/12/2024 10:22 AM EDT [facility] Platelets 144 130 - 400 K/mcL LAB HEMETOLOGY METHOD 11/12/2024 10:22 AM EDT [facility] MPV 9.0 7.0 - 11.0 FL LAB HEMETOLOGY METHOD 11/12/2024 10:22 AM EDT [facility] NRBC 0.0 <1.0 % LAB HEMETOLOGY METHOD 11/12/2024 10:22 AM EDT [facility] NRBC Absolute 0.00 <0.10 K/mcL LAB HEMETOLOGY METHOD 11/12/2024 10:22 AM EDT [facility] Blood Venous blood specimen / Unknown Venipuncture / Unknown 11/12/2024 4:58 AM EDT 11/12/2024 9:52 AM EDT Michael Allen MD LAB BLOOD ORDERABLES Final Resu lt [facility] [address] [place] [address], documented in this encounter Visit Diagnoses Diagnosis Diverticulitis of intestine, part unspecified, without perforation or abscess without bleeding documented in this encounter Care Teams Automatic Bow Maker Machine Tender Relationship Specialty Start Date End Date Wendy Mathis DO [address] [facility] [address] [place] [address] PCP - General Family Medicine 05/31/17 documented as of this encounter
--- OUTSIDE RECORDS SUMMARY | 2024-12-18 11:08 | XMS_ITS | Encounter Summary ---
Author Organization [facility] Address [address] [place] [address] Phone Care Team Providers Care Corporate Concierge Name Role Phone Kala Lundberg MD Primary Care Provider Adolfo Raymundo MBBS Unavailable Maria A Bolivar RETAIL COSMETICS SALES COUNTER MANAGER Unavailable Dejah Shepard INTENSIVE CARE UNIT NURSE Unavailable Crista Cummings GRINDING WHEEL FACER Unavailable Encounter Details Date Type Department Care Team (Late st Contact Info) Description 06/29/2024 Documentation [facility] Rad Onc [address] [place], [place] [phone] Ekta Castro RN [address] [place] [address] [email or web address] Social History Tobacco Use Types Packs/Day Years [...] st Contact Info) Description 12/06/2024 Procedure Pass [address] [address] 12/06/2024 Procedure Pass [address] [address] 03/07/2025 3:15 PM EST Appointment [address] [address] Crista Cummings CNP [address] [place] [address] 03/14/2025 3:20 PM EST Office Visit [facility] at [address] [address] Adolfo Raymundo MBBS [address] [place] [address] [email or web address] 06/12/2025 1:30 PM EST Office Visit [facility] Rad Onc [address] [place] [address] Chantell Villarreal MD [address] [place] [address] documented as of this encounter Visit Diagnoses Not on filedocumented in this encounter Care Teams Corporate Concierge Relationship Specialty Start Date End Date Kala Lundberg MD [address] [facility] [place] [address] PCP - General Internal Medicine 06/22/24 Adolfo Raymundo MBBS [facility] [place] [address] [email or web address] Medical Oncology 07/02/24 Maria A Bolivar FNP [address] [place] [address] [email or web address] Nurse Practitioner Medical Oncology 07/18/24 Dejah Shepard NP [address] [place] [address] [email or web address] Nurse Practitioner 08/14/24 Crista Cummings CNP [address] [place] [address] [email or web address] Nurse Practitioner 11/29/24 documented as of this encounter Additional Source Comments The information contained in this document represents components of the legal health record. It is not the complete legal health record.[facility]
--- OUTSIDE RECORDS SUMMARY | 2024-12-18 11:08 | XMS_ITS | Encounter Summary ---
Author Organization [facility] Address [address] [place] [address] Care Team Providers Care Non Destructive Testing Engineer Name Role Phone Wendy Mathis DO Primary Care Provider + Encounter Details Date Type Department Care Team (Latest Contact Info) Description 11/07/2024 Lab Requisition [facility] - Main Lab [address] [facility] [place] [address] Michael Allen MD [address] [place] [address] Diverticulitis of intestine, part unspecified, [...] Associated Diagnosis Comments COMPLETE BLOOD COUNT Routine 11/08/2024 5:03 AM EDT Diverticulitis of intestine, part unspecified, without perforation or abscess without bleeding BASIC METABOLIC PANEL Routine 11/08/2024 5:03 AM EDT Diverticulitis of intestine, part unspecified, without perforation or abscess without bleeding documented in this encounter Results * (ABNORMAL) Complete blood count (11/08/2024 5:03 AM EDT) WBC 5.9 4.8 - 10.8 K/[facility] LAB HEMETOLOGY METHOD 11/08/2024 8:37 AM EDT [facility] RBC 3.10(L) 3.80 - 4.80 M/mcL LAB HEMETOLOGY METHOD 11/08/2024 8:37 AM [facility] LAB Hemoglobin 9.8(L) 11.5 - 16.0 g/dL LAB HEMETOLOGY METHOD 11/08/2024 8:37 AM [facility] LAB Hematocrit 31.3(L) 35.0 - 47.0 % LAB HEMETOLOGY METHOD 11/08/2024 8:37 AM [facility] LAB MCV 101.6(H) 79.0 - 98.0 FL LAB HEMETOLOGY METHOD 11/08/2024 8:37 AM [facility] LAB MCH 31.8 27.0 - 32.0 pcg LAB HEMETOLOGY METHOD 11/08/2024 8:37 AM [facility] LAB MCHC 31.3(L) 32.0 - 37.0 g/dL LAB HEMETOLOGY METHOD 11/08/2024 8:37 AM [facility] LAB RDW 14.8 11.0 - 15.0 % LAB HEMETOLOGY METHOD 11/08/2024 8:37 AM [facility] LAB Platelets 122(L) 130 - 400 K/mcL LAB HEMETOLOGY METHOD 11/08/2024 8:37 AM [facility] LAB MPV 9.1 7.0 - 11.0 FL LAB HEMETOLOGY METHOD 11/08/2024 8:37 AM [facility] LAB NRBC 0.0 <1.0 % LAB HEMETOLOGY METHOD 11/08/2024 8:37 AM [facility] LAB NRBC Absolute 0.00 <0.10 K/mcL LAB HEMETOLOGY METHOD 11/08/2024 8:37 AM [facility] LAB Blood Venous blood specimen / Unknown Venipuncture / Unknown 11/08/2024 5:03 AM EDT 11/08/2024 7:41 AM EDT us Michael Allen MD LAB BLOOD ORDERABLES Final Resu lt [facility] [address] [place] [address], [place] [phone] * Basic metabolic panel (11/08/2024 5:03 AM EDT) Pathologist [facility] Sodium 138 133 - 145 mmol/L LAB CHEMISTRY METHOD 11/08/2024 9:10 AM [facility] LAB Potassium 4.0 3.5 - 5.5 mmol/L LAB CHEMISTRY METHOD 11/08/2024 9:10 AM [facility] LAB Chloride 105 96 - 110 mmol/L LAB CHEMISTRY METHOD 11/08/2024 9:10 AM [facility] LAB CO2 28 21 - 32 mmol/L LAB CHEMISTRY METHOD 11/08/2024 9:10 AM [facility] LAB Anion Gap 5 3 - 11 LAB CHEMISTRY METHOD 11/08/2024 9:10 AM [facility] LAB Glucose 90 70 - 100 mg/dL LAB CHEMISTRY METHOD 11/08/2024 9:10 AM [facility] LAB BUN 24 5 - 25 mg/dL LAB CHEMISTRY METHOD 11/08/2024 9:10 AM [facility] LAB Creatinine 0.77 0.50 - 1.10 mg/dL LAB CHEMISTRY METHOD 11/08/2024 9:10 AM [facility] LAB eGFR 78 >=60 mL/min/1. 73m2 LAB CHEMISTRY METHOD 11/08/2024 9:10 AM [facility] LAB Comment:Calculation based on the Chronic Kidney Disease Epidemiology Collaboration (CKD-EPI) equation refit without adjustment for race. BUN/Creatinine Ratio 31.2 LAB CHEMISTRY METHOD 11/08/2024 9:10 AM EDT [facility] Calcium 8.9 8.5 - 10.5 mg/dL LAB CHEMISTRY METHOD 11/08/2024 9:10 AM EDT [facility] LAB Blood Venous blood specimen / Unknown Venipuncture / Unknown 11/08/2024 5:03 AM EDT 11/08/2024 7:41 AM EDT us Michael Allen MD LAB BLOOD ORDERABLES Final Resu lt [facility] [address] [place] [address], documented in this encounter Visit Diagnoses Diagnosis Diverticulitis of intestine, part unspecified, without perforation or abscess without bleeding documented in this encounter Care Teams Non Destructive Testing Engineer Relationship Specialty Start Date End Date Wendy Mathis DO [address] [address] PCP - General Family Medicine 05/31/17 documented as of this encounter
--- OUTSIDE RECORDS SUMMARY | 2024-12-18 11:08 | XMS_ITS | Clinical Summary ---
Author Organization [facility] Address [address] [place] [address] Phone Care Team Providers Care Direct Support Professional Name Role Phone Wendy Mathis Primary Care Provider + Encounters Date Type Department Care Team Description 11/17/2024 Lab Requisition [facility] [address] [place] [phone] Michael Allen MD Diverticulitis of intestine, part unspecified, without perforation or abscess without bleeding 11/14/2024 Lab Requisition [facility] [address] [place] [phone] Michael Allen MD Diverticulitis of intestine, part unspecified, without perforation or abscess without bleeding 11/10/2024 Lab Requisition [facility] [address] [place] [phone] Michael Allen MD Diverticulitis of intestine, part unspecified, without perforation or abscess without bleeding 11/07/2024 Lab Requisition [facility] [address] [place] [phone] Michael Allen MD Diverticulitis of intestine, part unspecified, without perforation or abscess without bleeding 11/05/2024 Lab Requisition [facility] [address] [place] [phone] Michael Allen MD Diverticulitis of intestine, part unspecified, without perforation or abscess without bleeding 11/03/2024 Lab Requisition [facility] [address] [place] [address] Michael Allen MD Diverticulitis of small intestine with perforation and abscess without bleeding from Last 3 Months Medical History Medical History Date Comments PAF (paroxysmal atrial fibri llation) (CMS/HCC V24, CMS/HCC V28) DX:PAF (paroxysmal atrial fibrillation) (HCC) Dyslipidemia DX:Dyslipidemia HTN (hypertension) DX:HTN (hyper tension) [...] Comments Cholesterol Screening (Lipid Panel) 03/24/2022 09/11/2004 Falls Risk Assessment 03/24/2022 Lung Cancer Screening (Low Dose CT) 03/24/2022 Medicare Annual Wellness Visit 03/24/2022 Osteoporosis Screening (Bone Density Screening) 03/24/2022 Social Influencers of Health Screening 03/24/2022 Depression Screening 04/25/2024 COVID-19 Vaccine ( season) 2024 01/07/2024, 03/02/2023, 12/31/2021, Additional history exists Influenza Vaccine (#1) 2024 , 01/03/2023, 12/31/2021, Additional history exists Hypertension/CHF/CAD Annual BMP Blood Test 11/15/2025 11/15/2024, 11/12/2024, 11/08/2024, Additional history exists DTaP,Tdap,and Td Vaccines (2 - Td or Tdap) 09/24/2027 09/23/2017 Zoster Vaccines Completed 09/23/2017, 06/24, 01/28/2015 Pneumococcal Vaccine: 50+ Years Completed 12/17/2022, 01/05/2016 RSV Immunization Adult Patients Completed 01/03/2023 HIB Vaccines Aged Out No longer eligi [...] on patient's age to complete this topic Procedures Procedure Name Priority Date/Time Associated Diagnosis [...] unspecified, without perforation or abscess without bleeding COMPLETE BLOOD COUNT Routine 11/12/2024 4:58 AM EDT Diverticulitis of intestine, part unspecified, without perforation or abscess without bleeding COMPLETE BLOOD COUNT Routine 11/08/2024 5:03 AM EDT Diverticulitis of intestine, part unspecified, without perforation or abscess without bleeding BASIC METABOLIC PANEL Routine 11/08/2024 5:03 AM EDT Diverticulitis of intestine, part unspecified, without perforation or abscess without bleeding COMPLETE BLOOD COUNT Routine 11/05/2024 5:07 AM EDT Diverticulitis of intestine, part unspecified, without perforation or abscess without bleeding COMPREHENSIVE METABOLIC PANEL Routine 11/05/2024 5:07 AM EDT Diverticulitis of intestine, part unspecified, without perforation or abscess without bleeding COMPREHENSIVE METABOLIC PANEL Routine 11/03/2024 5:09 AM EDT Diverticulitis of small intestine with perforation and abscess without bleeding COMPLETE BLOOD COUNT Routine 11/03/2024 5:09 AM EDT Diverticulitis of small intestine with perforation and abscess without bleeding from Last 3 Months Results * (ABNORMAL) Complete blood count (11/15/2024 5:31 AM EDT) Only the most recent of5 resultswithin the time period is included. WBC 6.9 4.8 - 10.8 K/mcL LAB HEMETOLOGY METHOD 11/15/2024 11:37 AM [facility] LAB RBC 3.10(L) 3.80 - 4.80 M/mcL LAB HEMETOLOGY METHOD 11/15/2024 11:37 AM [facility] LAB Hemoglobin 9.8(L) 11.5 - 16.0 g/dL LAB HEMETOLOGY METHOD 11/15/2024 11:37 AM [facility] LAB Hematocrit 32.0(L) 35.0 - 47.0 % LAB HEMETOLOGY METHOD 11/15/2024 11:37 AM [facility] LAB MCV 102.9(H) 79.0 - 98.0 FL LAB HEMETOLOGY METHOD 11/15/2024 11:37 AM [facility] LAB MCH 31.5 27.0 - 32.0 pcg LAB HEMETOLOGY METHOD 11/15/2024 11:37 AM [facility] LAB MCHC 30.6(L) 32.0 - 37.0 g/dL LAB HEMETOLOGY METHOD 11/15/2024 11:37 AM [facility] LAB RDW 14.8 11.0 - 15.0 % LAB HEMETOLOGY METHOD 11/15/2024 11:37 AM [facility] LAB Platelets 139 130 - 400 K/mcL LAB HEMETOLOGY METHOD 11/15/2024 11:37 AM EDT [facility] LAB MPV 9.3 7.0 - 11.0 FL LAB HEMETOLOGY METHOD 11/15/2024 11:37 AM EDT [facility] LAB NRBC 0.0 <1.0 % LAB HEMETOLOGY METHOD 11/15/2024 11:37 AM EDT [facility] LAB NRBC Absolute 0.00 <0.10 K/mcL LAB HEMETOLOGY METHOD 11/15/2024 11:37 AM EDT [facility] LAB Blood Venous blood specimen / Unknown Venipuncture / Unknown 11/15/2024 5:31 AM EDT 11/15/2024 11:24 AM EDT Michael Allen MD LAB BLOOD ORDERABLES Final Resu lt [facility] LAB [address] [place] [address], [place] [phone] * Basic metabolic panel (11/15/2024 5:31 AM EDT) Only the most recent of2 resultswithin the time period is included. Sodium 138 133 - 145 mmol/L LAB CHEMISTRY METHOD 11/15/2024 12:11 PM [facility] LAB Potassium 4.0 3.5 - 5.5 mmol/L LAB CHEMISTRY METHOD 11/15/2024 12:11 PM [facility] LAB Chloride 103 96 - 110 mmol/L LAB CHEMISTRY METHOD 11/15/2024 12:11 PM [facility] LAB CO2 29 21 - 32 mmol/L LAB CHEMISTRY METHOD 11/15/2024 12:11 PM [facility] LAB Anion Gap 6 3 - 11 LAB CHEMISTRY METHOD 11/15/2024 12:11 PM EDT [facility] Glucose 70 70 - 100 mg/dL LAB CHEMISTRY METHOD 11/15/2024 12:11 PM EDT [facility] BUN 22 5 - 25 mg/dL LAB CHEMISTRY METHOD 11/15/2024 12:11 PM [facility] LAB Creatinine 0.74 0.50 - 1.10 mg/dL LAB CHEMISTRY METHOD 11/15/2024 12:11 PM [facility] LAB eGFR 82 >=60 mL/min/1. 73m2 LAB CHEMISTRY METHOD 11/15/2024 12:11 PM T [facility] LAB Comment:Calculation based on the Chronic Kidney Disease Epidemiology Collaboration (CKD-EPI) equation refit without adjustment for race. BUN/Creatinine Ratio 29.7 LAB CHEMISTRY METHOD 11/15/2024 12:11 PM [facility] LAB Calcium 8.8 8.5 - 10.5 mg/dL LAB CHEMISTRY METHOD 11/15/2024 12:11 PM [facility] LAB Blood Venous blood specimen / Unknown Venipuncture / Unknown 11/15/2024 5:31 AM EDT 11/15/2024 11:24 AM EDT Michael Allen MD LAB BLOOD ORDERABLES Final Resu lt [facility] [address] [place] [address], * (ABNORMAL) Comprehensive metabolic panel (11/12/2024 4:58 AM EDT) Only the most recent of3 resultswithin the time period is included. Sodium 136 133 - 145 mmol/L LAB CHEMISTRY METHOD 11/12/2024 11:01 AM [facility] LAB Potassium 4.1 3.5 - 5.5 mmol/L LAB CHEMISTRY METHOD 11/12/2024 11:01 AM [facility] LAB Chloride 103 96 - 110 mmol/L LAB CHEMISTRY METHOD 11/12/2024 11:01 AM [facility] LAB CO2 28 21 - 32 mmol/L LAB CHEMISTRY METHOD 11/12/2024 11:01 AM [facility] LAB Anion Gap 5 3 - 11 LAB CHEMISTRY METHOD 11/12/2024 11:01 AM [facility] LAB Glucose 65(L) 70 - 100 mg/dL LAB CHEMISTRY METHOD 11/12/2024 11:01 AM [facility] BUN 21 5 - 25 mg/dL LAB CHEMISTRY METHOD 11/12/2024 11:01 AM [facility] LAB Creatinine 0.79 0.50 - 1.10 mg/dL LAB CHEMISTRY METHOD 11/12/2024 11:01 AM [facility] LAB eGFR 76 >=60 mL/min/1. 73m2 LAB CHEMISTRY METHOD 11/12/2024 11:01 AM [facility] LAB Comment:Calculation based on the Chronic Kidney Disease Epidemiology Collaboration (CKD-EPI) equation refit without adjustment for race. BUN/Creatinine Ratio 26.6 LAB CHEMISTRY METHOD 11/12/2024 11:01 AM [facility] LAB Calcium 8.2(L) 8.5 - 10.5 mg/dL LAB CHEMISTRY METHOD 11/12/2024 11:01 AM [facility] LAB AST (SGOT) 15 10 - 42 unit/L LAB CHEMISTRY METHOD 11/12/2024 11:01 AM [facility] ALT (SGPT) 37 10 - 60 unit/L LAB CHEMISTRY METHOD 11/12/2024 11:01 AM [facility] LAB Comment:Results verified by repeat testing Alkaline Phosphatase 108 42 - 121 unit/L LAB CHEMISTRY METHOD 11/12/2024 11:01 AM [facility] LAB Total Protein 5.6(L) 6.0 - 8.0 g/dL LAB CHEMISTRY METHOD 11/12/2024 11:01 AM [facility] Albumin 2.4(L) 3.2 - 5.0 g/dL LAB CHEMISTRY METHOD 11/12/2024 11:01 AM EDT [facility] Total Bilirubin 0.3 0.0 - 1.4 mg/dL LAB CHEMISTRY METHOD 11/12/2024 11:01 AM EDT [facility] LAB Blood Venous blood specimen / Unknown Venipuncture / Unknown 11/12/2024 4:58 AM EDT 11/12/2024 9:55 AM EDT us Michael Allen MD LAB BLOOD ORDERABLES Final Resu lt [facility] [address] [place] [address], [place] [phone] from Last 3 Months Insurance MEDICARE [facility] Care Teams Direct Support Professional Relationship Specialty Start Date End Date Wendy Mathis DO [address] [facility] [address] [place], [place] [phone] PCP - General Family Medicine 05/31/17
--- OUTSIDE RECORDS SUMMARY | 2024-12-18 11:08 | XMS_ITS | Encounter Summary ---
Author Organization [facility] Address [address] [place] [address] Care Team Providers Care Field Examiner Name Role Phone Wendy Mathis DO Primary Care Provider + Encounter Details Date Type Department Care Team (Latest Contact Info) Description 11/17/2024 Lab Requisition [facility] - Main Lab [address] [facility] [place] [address] Michael Allen MD [address] [place] [address] Diverticulitis of intestine, part unspecified, [...] on file documented as of this encounter Visit Diagnoses Diagnosis Diverticulitis of intestine, part unspecified, without perforation or abscess without bleeding documented in this encounter Care Teams Field Examiner Relationship Specialty Start Date End Date Wendy Mathis DO 2 [facility] 2 [place] [address] PCP - General Family Medicine 05/31/17 documented as of this encounter
--- OUTSIDE RECORDS SUMMARY | 2024-12-18 11:09 | XMS_ITS | Encounter Summary ---
Author Organization [facility] Address [address] [facility] [address] [place] [address] Phone Care Team Providers Care Criminology Professor Name Role Phone Aakash Lundberg MD Primary Care Provider [phone] Reason for Visit * Reason Comments Med Refill Encounter Details Date Type Department Care Team (Late Contact Info) Description 10/04/2022 Refill [facility] [address] [place] [place] [address] Gustavo Pina MD [address] [facility] [address] [place] [phone] Social History Tobacco Use Types Packs/Day Years [...] [facility] [address] [address] [place] [address] Uvaldo Vivar MD [address] [facility] [address] [place] [phone] documented as of this encounter Visit Diagnoses Not on filedocumented in this encounter Care Teams Criminology Professor Relationship Specialty Start Date End Date Aakash Lundberg MD [facility] [place] [address] PCP - General Internal Medicine 04/09/21 documented as of this encounter
--- OUTSIDE RECORDS SUMMARY | 2024-12-18 11:09 | XMS_ITS | Clinical Summary ---
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 Active acetaminophen (TYLENOL) 500 MG tablet Take 1,000 mg by mouth every 6 (six) hours as needed for pain (specific location in comments). Using bid Active traMADoL (ULTRAM) 50 mg tablet Take 1 tab po q 4-6 hours prn pain, nte 4 tabs/day. Cancer related pain, partial fill ok 56 tablet 09/07/19 25 Active predniSONE (DELTASONE) 5 MG tablet Take 5 mg by mouth daily. Currently taking 2 tablets once daily for 7 days, last day December 07, then to reduce to one tablet daily 11/17/19 25 Active chlorthalidone (HYGROTON) 25 MG tablet Take 25 mg by mouth. 03/14/20 24 025 Discontin ued(No longer taking) prochlorperazine (COMPAZINE) 10 MG tablet Take 1 tablet (10 mg total) by mouth every 6 (six) hours as needed (nausea). 60 tablet 3 07/19/19 Discontin ued(No longer taking) silver sulfADIAZINE (SILVADENE) 1 % cream Apply topically 2 (two) times a day. Apply to affected area as directed. 50 g 4 08/10/19 Discontin ued(No longer taking) lidocaine (XYLOCAINE) 2 % mucosal gel jelly Apply topically 3 (three) times a day. 30 mL 10 08/17/19 025 Discontin ued(No longer taking) ondansetron (ZOFRAN-ODT) 4 MG disintegrating tablet TAKE 1 TABLET BY MOUTH EVERY 8 HOURS NEEDED FOR NAUSEA 42 tablet 08/21/19 Discontin ued(No longer taking) Active Problems Problem Noted Date Diagnosed Date [...] me to participate in this patient's care Encounters Date Type Department Care Team Description 12/13/2024 11:30 AM EDT Office Visit [facility] At [address] [address] Chantell Villarreal MD Anal cancer (Primary Dx) 12/06/2024 2:30 PM EDT Office Visit [facility] at [address] [address] Crista Cummings CNP Anal cancer (Primary Dx); Weight loss; Lung nodule; Dehydration; Anemia, unspecified type 12/06/2024 Telephone [facility] at [address] [address] Crista Cummings CNP 11/30/2024 Telephone [facility] [place] at [address] [address] Adolfo Raymundo MBBS 11/27/2024 Telephone [facility] at [address] [address] Crista Cummings CNP 11/24/2024 12:35 PM EDT - 11/24/2024 11:59 PM EDT Hospital Encounter [facility] Scan [address] [address] Crista Cummings CNP Discharge Disposition: Home or Self Care 11/20/2024 1:50 PM EDT - 11/20/2024 11:59 PM EDT Hospital Encounter [facility] Laboratory [address] [place] [address] Crista Cummings CNP Discharge Disposition: Home or Self Care 11/02/2024 Telephone [facility] At [facility] Rad [address] [address] Debbie López RN 10/25/2024 Procedure Pass [facility] Scan [address] [address] 10/25/2024 Procedure Pass [facility] [place] Scan [address] [address] 10/25/2024 Orders Only [facility] at [address] [address] Crista Cummings CNP Anal cancer (Primary Dx) 10/25/2024 Telephone [facility] at [address] [address] Adolfo Raymundo MBBS 10/18/2024 4:00 PM EDT Telemedicine - audio only [facility] At [facility] Rad [address] [address] Chantell Villarreal MD Anal cancer (Primary Dx) 10/05/2024 9:00 AM EDT Office Visit [facility] At [facility] Rad Onc [address] [place] [address] Chantell Villarreal MD Anal cancer (Primary Dx) from Last 3 Months Immunizations Immunization Administration Dates Next Due INFLUENZA, SPLIT VIRUS, TRIV ALENT W/ PRESERVATIVE IM 12/23/2010 Influenza High-Dose Quadriva lent Preservative Free IM 01/03/2023 Influenza High-Dose Trivalen t Preservative Free IM 12/14/2019,02/19/2019,03/29/2018,2017,11/30/2016,01/05/2016,01/22/2015 Influenza Quadrivalent Adjuv anted Preservative Free IM 12/31/2021,03/17/2021 Influenza Trivalent Adjuvant ed Preservative free IM 01/07/2024,02/05/2019 Influenza, Unspecified Formulation 03/17/2005, Pneumococcal conjugate PCV13 01/05/2016 Pneumococcal conjugate PCV20 12/17/2022 RSV Vaccine (bivalent) 01/03/2023 Tdap 09/23/2017 Zoster live 01/28/2015 Zoster recombinant 09/23/2017,07/17/2017 Family History Medical History Relation Comments Cancer Mother gallbladder Relation Status Comments Mother Social History Tobacco Use Types Packs/Day Years Used Date Smoking Tobacco: Former Cigarettes 4 20 Smokeless Tobacco: Never Tobacco Cessation:Counseling Given: Not Answered Alcohol Use Standard Drinks/Week Comments Not Currently [...] Sign Reading Time Taken Comments Blood Pressure 106/67 12/06/2024 2:09 PM EDT Pulse 86 12/06/2024 2:09 PM EDT Temperature 35.7 C (96.2 F) 08/30/2024 2:56 PM EDT Respiratory Rate 16 08/30/2024 2:56 PM EDT Oxygen Saturation 96% 12/06/2024 2:09 PM EDT Inhaled Oxygen Concentration - - Weight 57.6 kg (126 lb 14.4 oz) 025 11:35 AM EDT Height 154.9 cm (5' 0.98 ) 08/20/2024 1 1:17 AM EDT Body Mass Index 23.99 08/20/2024 11:17 AM EDT Plan of Treatment Upcoming Encounters Date Type Department Care Team (Late st Contact Info) Description 12/06/2024 Procedure Pass [address] [address] 12/06/2024 Procedure Pass [address] [address] 03/07/2025 3:15 PM EST Appointment [address] [address] Crista Cummings, MANJINDER [address] [place] [address] 03/14/2025 3:20 PM EST Office Visit [facility] at [address] [address] Adolfo Raymundo MBBS [address] [place] [address] [email or web address] 06/12/2025 1:30 PM EST Office Visit [facility] At [facility] Rad Onc [address] [place] [address] Chantell Villarreal MD [address] [place] [address] Health Maintenance Due Date Last Done Comments TSH LEVEL 1944 DEPRESSION SCREENING 1956 SMOKING Hx and SMOKELESS TOBACCO SCREENING 1957 OSTEOPOROSIS SCREENING INITIAL (ONE-TIME) 2009 LIPID PANEL 09/11/2009 09/11/2004 COVID-19 VACCINE ( season) 2024 01/07/2024, 03/02/2023, 12/31/2021, Additional history exists INFLUENZA VACCINE (#1) 2024 , 01/03/2023, 12/31/2021, Additional history exists CREATININE LEVEL 11/20/2025 11/20/2024, , 08/13/2024, Additional history exists Adult Td,Tdap Booster 09/24/2027 09/23/2017 ZOSTER VACCINES Completed 09/23/2017, 06/24, 01/28/2015 PNEUMOCOCCAL VACCINES (50+ years) Completed 12/17/2022, 01/05/2016 RSV VACCINE Completed 01/03/2023 HEPATITIS A VACCINES Aged Out No long er eligible based on patient's age to complete this topic HIB VACCINES Aged Out No longer eligi ble based on patient's age to complete this topic MENINGOCOCCAL VACCINES (ACWY) Aged Out No longer eligible based on patient's age to complete this topic MENINGOCOCCAL VACCINES (B) Aged Out N o longer eligible based on patient's age to complete this topic Medical Devices Not on file Procedures Procedure Name Priority Date/Time Associated Diagnosis Comments CT ABDOMEN/PELVIS WITH CONTRAST Routine 11/24/2024 2:17 [address]T Anal cancer [address] CHEST WITH CONTRAST Routine 2:17 PM EDT Anal cancer CARCINOEMBRYONIC ANTIGEN (CEA) Routine 11/20/2024 2:11 PM EDT Anal cancer CA-19-9 Routine 11/20/2024 2:11 PM EDT Anal cancer COMPREHENSIVE METABOLIC PANEL Routine 11/20/2024 2:11 PM EDT Anal cancer CBC AND DIFFERENTIAL Routine 11/20/2024 2:11 PM EDT Anal cancer from Last 3 Months Results * CT CHEST WITH CONTRAST (11/24/2024 2:17 PM EDT) MGB IMG RECOMMENDATION COMMENT Likely new 5 mm nodule left lower lobe; Rule Out: 5 mm left lower lobe metastasis [facility] Anatomical Region Laterality Modality Chest Computed Tomogra phy 11/27/2024 2:57 PM EDT Impressions 11/27/2024 3:08 PM EDT Compared to June 14, 2023 PET/CT: 1. Likely new 5 mm nodule in the left lower lobe is indeterminate, but cannot exclude metastasis. Recommend 3-[address] follow-up to ensure stability. 2. Other scattered sub-5 mm lung nodules are difficult to compare to prior PET/CT due to size. 3. Previously mildly FDG-avid mediastinal lymph node is no longer visualized. Follow-up recommendations were communicated and documented using a closed loop communication system. Narrative 11/27/2024 3:[address] CHEST WITH CONTRAST Referring clinician's provided indication for this examination in Epic: * Anal carcinoma, restaging TECHNIQUE: Multidetector CT of the chest was performed with intravenous contrast using tailored dose modulation techniques. COMPARISON: NM PET WHOLE BODY OUTSIDE (NO INTERPRETATION) 2024- FINDINGS: Devices/Tubes/Lines: Right-sided Port-A-Cath terminates in the right atrium. Lungs: The central airways are patent. No focal consolidation. Bibasilar and dependent subsegmental atelectasis. There is a 5 mm nodule in the basilar left lower lobe which is not confidently visualized on prior PET/CT (4; 231). A more lateral 3 mm nodule in the left lower lobe most likely present on prior PET/CT (4; 218). There are other scattered calcified and noncalcified up to 2 mm lung nodules which are difficult to assess on prior PET due to size. Pleura: No pleural effusion or pneumothorax. Mediastinum: Similar 1.4 cm left thyroid nodule, not significantly FDG-avid on prior PET/CT. Heart size is normal. No significant pericardial effusion. Atherosclerotic aorta and branches. Lymph Nodes: No enlarged supraclavicular, axillary, mediastinal, or hilar lymph nodes by CT threshold criteria. Previously mildly FDG-avid aortopulmonary window lymph node is no longer visualized. Upper Abdomen: Please see concurrent abdominal CT for abdominal findings. Chest Wall: No chest wall mass. Bones: No suspicious lytic or blastic lesions. Similar faint sclerosis in the right aspect of T12, not significantly avid on prior PET/CT. Degenerative changes. Procedure Note Mayte Whalen MD - 11/27/2024 CT CHEST WITH CONTRAST Referring clinician's provided indication for this examination in [facility]: *Anal carcinoma, restaging TECHNIQUE: Multidetector CT of the chest was performed with intravenouscontrast using tailored dose modulation techniques. COMPARISON: NM PET WHOLE BODY OUTSIDE (NO INTERPRETATION) 2024- FINDINGS: Devices/Tubes/Lines: Right-sided Port-A-Cath terminates in the rightatrium. Lungs: The central airways are patent. No focal consolidation. Bibasilarand dependent subsegmental atelectasis. There is a 5 mm nodule in the basilar left lower lobe which is notconfidently visualized on prior PET/CT (4; 231). A more lateral 3 mmnodule in the left lower lobe most likely present on prior PET/CT (4;218). There are other scattered calcified and noncalcified up to 2 mm lungnodules which are difficult to assess on prior PET due to size. Pleura: No pleural effusion or pneumothorax. Mediastinum: Similar 1.4 cm left thyroid nodule, not significantlyFDG-avid on prior PET/CT. Heart size is normal. No significant pericardialeffusion. Atherosclerotic aorta and branches. Lymph Nodes: No enlarged supraclavicular, axillary, mediastinal, or hilarlymph nodes by CT threshold criteria. Previously mildly FDG-avidaortopulmonary window lymph node is no longer visualized. Upper Abdomen: Please see concurrent abdominal CT for abdominalfindings. Chest Wall: No chest wall mass. Bones: No suspicious lytic or blastic lesions. Similar faint sclerosis inthe right aspect of T12, not significantly avid on prior PET/CT.Degenerative changes. IMPRESSION: Compared to June 14, 2023 PET/CT: 1. Likely new 5 mm nodule in the left lower lobe is indeterminate, butcannot exclude metastasis. Recommend 3-[address] follow-up toensure stability. 2. Other scattered sub-5 mm lung nodules are difficult to compare toprior PET/CT due to size. 3. Previously mildly FDG-avid mediastinal lymph node is no longervisualized. Follow-up recommendations were communicated and documented using a closedloop communication system. Crista Cummings MANAGER IMPLEMENTATION IMG CT CHEST Final Result * CT ABDOMEN/PELVIS WITH CONTRAST (11/24/2024 2:17 PM EDT) Anatomical Region Laterality Modality Abdomen, Pelvis Computed Tomogra phy 11/27/2024 3:07 PM EDT Impressions 11/27/2024 3:21 PM EDT History of anal cancer. 1. Decreased conspicuity of the known anal mass, with a residual hyperdense component in the rectum. No evidence for bowel obstruction. 2. Interval decreased size of the abdominal/pelvic lymphadenopathy, overall likely representing treatment response. 3. Mild prominence of the gastric and sigmoid mucosa, which may represent gastritis/colitis. Please see separately dictated CT chest for findings above the level of the diaphragm. Narrative 11/27/2024 3:[address] ABDOMEN/PELVIS WITH CONTRAST Referring clinician's provided indication for this examination in Epic: * Anal carcinoma, restaging TECHNIQUE: Multidetector-row CT of the abdomen and pelvis was performed after administration of intravenous contrast using tailored dose modulation techniques. Images were reconstructed in the axial, coronal, and sagittal planes. COMPARISON: Same-day CT chest. FINDINGS: Lower Chest: CT chest from the same day is reported separately. Liver: Normal. No focal lesions. Biliary: The gallbladder is unremarkable. No biliary ductal dilatation. Spleen: Normal. No splenomegaly or focal lesions. Pancreas: Normal. No masses or ductal dilatation. Adrenal Glands: Normal. No nodules. Kidneys/Ureters: Subcentimeter hypodense lesions are too small to definitively characterize, but most likely represent cysts. No solid masses, stones, or hydronephrosis. Bowel: Mild prominence of the gastric mucosa (2-13). Decreased conspicuity of the known anal mass, with a hyperdense component in the rectum approximately measuring 2.4 x 1.8 x 4.4 cm (2-66, 6-53). The lumen appears more patent. Prior PET/CT. The sigmoid colon mucosa is mildly prominent (2-57) Large amount of stool, notably in the right colon. No evidence of obstruction. Peritoneum/Retroperitoneum: Normal. No masses, pneumoperitoneum, or fluid. Lymph Nodes: Interval decreased size of the abdominal/pelvic lymph nodes, for example: * Gastrohepatic lymph node measuring 4 mm (2-12, previously 11 mm). * Elana hepatis lymph node measuring 5 mm (2-16, previously 10 mm). * Left periaortic lymph node measuring 6 mm (2-28, previously 10 mm). * Aortocaval lymph node measuring 4 mm (2-26, previously 11 mm). * Left external iliac lymph node measuring 6 mm (2-37, previously 12 mm). * Right common iliac lymph node measuring 6 mm (2-22, previously 13 mm). * Left pelvic sidewall lymph node measuring 3 mm (2-56, previously 10 mm). * Right pelvic sidewall lymph node measuring 2 mm (2-56, previously 13 mm). Pelvic Organs/Bladder: Normal. No mass. Vessels: Mild calcifications of the abdominal aorta. No abdominal aortic aneurysm. The portal vein, SMV, and splenic vein are patent. Bones/Soft Tissues: Multilevel degenerative changes of the spine, with diffuse demineralization. No destructive osseous lesions. Procedure Note Rosmery Tilley MD - 11/27/2024 CT ABDOMEN/PELVIS WITH CONTRAST Referring clinician's provided indication for this examination in Epic: *Anal carcinoma, restaging TECHNIQUE: Multidetector-row CT of the abdomen and pelvis was performedafter administration of intravenous contrast using tailored dosemodulation techniques. Images were reconstructed in the axial, coronal,and sagittal planes. COMPARISON: Same-day CT chest. FINDINGS: Lower Chest: CT chest from the same day is reported separately. Liver: Normal. No focal lesions. Biliary: The gallbladder is unremarkable. No biliary ductal dilatation. Spleen: Normal. No splenomegaly or focal lesions. Pancreas: Normal. No masses or ductal dilatation. Adrenal Glands: Normal. No nodules. Kidneys/Ureters: Subcentimeter hypodense lesions are too small todefinitively characterize, but most likely represent cysts. No solidmasses, stones, or hydronephrosis. Bowel: Mild prominence of the gastric mucosa (2-13). Decreased conspicuity of the known anal mass, with a hyperdense componentin the rectum approximately measuring 2.4 x 1.8 x 4.4 cm (2-66, 6-53). Thelumen appears more patent. Prior PET/CT. The sigmoid colon mucosa is mildly prominent (2-57) Large amount of stool, notably in the right colon. No evidence ofobstruction. Peritoneum/Retroperitoneum: Normal. No masses, pneumoperitoneum, orfluid. Lymph Nodes: Interval decreased size of the abdominal/pelvic lymph nodes,for example: * Gastrohepatic lymph node measuring 4 mm (2-12, previously 11 mm). * Elana hepatis lymph node measuring 5 mm (2-16, previously 10 mm). * Left periaortic lymph node measuring 6 mm (2-28, previously 10 mm). * Aortocaval lymph node measuring 4 mm (2-26, previously 11 mm). * Left external iliac lymph node measuring 6 mm (2-37, previously 12mm). * Right common iliac lymph node measuring 6 mm (2-22, previously 13mm). * Left pelvic sidewall lymph node measuring 3 mm (2-56, previously 10mm). * Right pelvic sidewall lymph node measuring 2 mm (2-56, previously 13mm). Pelvic Organs/Bladder: Normal. No mass. Vessels: Mild calcifications of the abdominal aorta. No abdominal aorticaneurysm. The portal vein, SMV, and splenic vein are patent. Bones/Soft Tissues: Multilevel degenerative changes of the spine, withdiffuse demineralization. No destructive osseous lesions. IMPRESSION: History of anal cancer. 1. Decreased conspicuity of the known anal mass, with a residualhyperdense component in the rectum. No evidence for bowel obstruction. 2. Interval decreased size of the abdominal/pelvic lymphadenopathy,overall likely representing treatment response. 3. Mild prominence of the gastric and sigmoid mucosa, which may representgastritis/colitis. Please see separately dictated CT chest for findings above the level ofthe diaphragm. Crista Cummings CNP [facility] CT ABD/PELVIS Final Result * (ABNORMAL) Comprehensive metabolic panel (11/20/2024 2:11 PM EDT) SODIUM 137 133 - 146 mmol/L [facility] POTASSIUM 5.1 3.3 - 5.1 mmol/L [facility] CHLORIDE 99 96 - 108 mmol/L [facility] CO2 24 21 - 35 mmol/L [facility] BUN 20(H) 6 - 19 mg/dL [facility] CREATININE 1.30 0.5 - 1.5 mg/dL [facility] GLUCOSE 122(H) 70 - 99 mg/dL [facility] ALBUMIN 3.5(L) 3.9 - 4.8 g/dL [facility] TOTAL PROTEIN 6.8 6.5 - 8.0 g/dL [facility] CALCIUM 8.9 8.4 - 10.3 mg/dL [facility] ALKALINE PHOSPHATASE 111 39 - 117 U/L [facility] TOTAL BILIRUBIN 0.4 0.0 - 1.2 mg/dL [facility] AST 12 0 - 37 U/L [facility] ALT 15 0 - 40 U/L [facility] GLOBULIN 3.3 1 - 4.8 g/dL [facility] EGFR 42(L) >59 mL/min/1.7 3m2 [facility] Comment:Estimated glomerular filtration rate calculated using the CKD-EPI refit equation. ANION GAP 19 10 - 20 mmol/L [facility] Blood 11/20/2024 2:11 PM EDT 11/20/2024 2:13 PM EDT Jybe LAB BLOOD ORDERABLES Final Resul t Performing Organization Address City/[facility]/ZIP Co de Phone Number [address] [address] * (ABNORMAL) CA-19-9 (11/20/2024 2:11 PM EDT) CA 19-9 37(H) <35 U/mL [facility] Comment: Test Methodology Donovan [id number] Patient results determined by assays using different manufacturers or methods may not be comparable. Blood 11/20/2024 2:11 PM EDT 11/20/2024 2:13 PM EDT Jybe LAB BLOOD ORDERABLES Final Resul t Performing Organization Address City/[facility]/ZIP Co de Phone Number [address] [address] * (ABNORMAL) CBC and differential (11/20/2024 2:11 PM EDT) WBC 6.65 4.00 - 11.00 K/uL [facility] RBC 3.56(L) 4.00 - 5.20 M/uL [facility] HGB 11.2(L) 12.0 - 16.0 g/dL [facility] HCT 36.7 36.0 - 46.0 % [facility] PLT 164 150 - 450 K/uL [facility] MCV 103.1(H) 80.0 - 100.0 fL [facility] MCH 31.5(H) 27.0 - 31.0 pg [facility] MCHC 30.5(L) 32.0 - 36.0 g/dL [facility] RDW 13.9 11.5 - 14.5 % [facility] MPV 9.2 8.4 - 12.0 fL [facility] NRBC 0.00 0.00 /100 WBCs [facility] ABSOLUTE NRBC 0.00 0.00 K/uL [facility] DIFF METHOD Auto [facility] NEUTS 86.8(H) 48.0 - 76.0 % [facility] LYMPHS 7.8(L) 18.0 - 41.0 % [facility] MONOS 4.4 4.0 - 11.0 % [facility] EOS 0.2 0.0 - 5.0 % [facility] BASOS 0.3 0.0 - 1.5 % [facility] Granulocytes, immature (%) 0.5 0.0 - 0.9 % [facility] ABSOLUTE NEUTS 5.78 1.92 - 7.60 K/uL [facility] ABSOLUTE LYMPHS 0.52(L) 0.72 - 4.10 K/uL [facility] ABSOLUTE MONOS 0.29 0.16 - 1.10 K/uL [facility] ABSOLUTE EOS 0.01 0.00 - 0.50 K/uL [facility] ABSOLUTE BASOS 0.02 0.00 - 0.15 K/uL [facility] Granulocytes, immature 0.03 0.00 - 0.09 K/uL [facility] Blood 11/20/2024 2:11 PM EDT 11/20/2024 2:13 PM EDT Crista Miira MANAGER IMPLEMENTATION LAB BLOOD ORDERABLES Final Resul t Performing Organization Address [facility] Co de Phone Number [address] [address] * (ABNORMAL) Carcinoembryonic antigen (CEA) (11/20/2024 2:11 PM EDT) CEA 4.3(H) 0 - 3.4 ng/mL [facility] Comment: Test Methodology Donovan [id number] Patient results determined by assays using different manufacturers or methods may not be comparable. Blood 11/20/2024 2:11 PM EDT 11/20/2024 2:13 PM EDT Crista Miira [facility] LAB BLOOD ORDERABLES Final Resul t Performing Organization Address [facility] Co de Phone Number [address] [address] from Last 3 Months Insurance [place] [id number] [facility] MEDICARE PART A & B MEDICARE PART A & B MEDICARE PART A & B MEDICARE PART A & B MEDICARE PART A & B MEDICARE PART A & B MEDICARE PART A & B MEDICARE PART A & B Member Subscriber Plan / Payer (Ef fective 2009-Present) Name:Raquel Nicholas Member ID:[id number] Relation to Subscriber:Self Name:Raquel Nicholas Subscriber ID:[id number] Payer ID:[id number] Group ID:Not on file Type:Medicare Address: [facility] [employer] [email or web address] [address] [place] [phone] [facility] Advance Directives For more information, please contact: [phone] (9AM - 5PM [facility], Tuesday-Tuesday) Documents on File Type Date Recorded Patient Retail 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 Development Expl anation Healthcare Proxy 07/17/2024 3:09 PM [facility]OCK [facility] Care Proxy Care Teams Orchid Transplanter Relationship Specialty Start Date End Date Kala Lundberg MD [address] [address] PCP - General Internal Medicine 06/22/24 Adolfo Raymundo MBBS [address] [address] [email or web address] Medical [email or web address] 07/02/24 Maria A Bolivar FNP [address] [place] [id number] [email or web address] Nurse Practitioner Medical Oncology 07/18/24 Dejah Shepard NP [address] [place] [address] [email or web address] Nurse Practitioner 08/14/24 Crista Cummings CNP [address] [place] [address] [email or web address] Nurse Practitioner 11/29/24 Additional Source Comments The information contained in this document represents components of the legal health record. It is not the complete legal health record.[facility]
--- OUTSIDE RECORDS SUMMARY | 2024-12-18 11:09 | XMS_ITS | Encounter Summary ---
Author Organization [facility] [place], Address [address] [place] [address] Phone Care Team Providers Care Regional Operations Manager Name Role Phone Aakash Lundberg MD Primary Care Provider +1- [phone] Encounter Details Date Type Department Care Team (Late Contact Info) Description 07/16/2022 Documentation Only [facility] [address] [place] [address] Uvaldo Vivar MD [address] [place] [address] [place] [phone] Social History Tobacco Use Types Packs/Day Years [...] Visit [facility] [address]al [address] [place] [phone] Uvaldo Vivar MD [address] [place] [address] Dr. Sarath [place] [address] documented as of this encounter Visit Diagnoses Not on filedocumented in this encounter Care Teams Regional Operations Manager Relationship Specialty Start Date End Date Aakash Lundberg MD [address] [place] [address] PCP - General Internal Medicine 04/09/21 documented as of this encounter
--- OUTSIDE RECORDS SUMMARY | 2024-12-18 11:09 | XMS_ITS | Encounter Summary ---
Author Organization [facility] Address [address] [employer] [facility] [address] [place] [address] Phone Care Team Providers Care Suppository Molding Machine Operator Name Role Phone Kala Lundberg MD Primary Care Provider Adolfo Raymundo MBBS Unavailable Maria A Bolivar SUPERVISOR WET POUR Unavailable Dejah Shepard TIN ROOFER Unavailable [phone] Crista Cummings BANK CREDIT CARD COLLECTION CLERK Unavailable Encounter Details Date Type Department Care Team (Late st Contact Info) Description 10/25/2024 Procedure Pass [facility], Ct Scan - [address] [phone] Social History Tobacco Use Types Packs/Day Years [...] st Contact Info) Description 12/06/2024 Procedure Pass [address] [address] 12/06/2024 Procedure Pass [address] [address] 03/07/2025 3:15 PM EST Appointment [address] [address] Crista Cummings, MANJINDER [address] [place] [address] 03/14/2025 3:20 PM EST Office Visit [facility] at [address] [address] Adolfo Rayumndo MBBS [address] [place] [address] [email or web address] 06/12/2025 1:30 PM EST Office Visit [facility] Rad Onc [address] [place] [address] Chantell Villarreal MD [address] [place] [address] documented as of this encounter Visit Diagnoses Not on filedocumented in this encounter Care Teams Suppository Molding Machine Operator Relationship Specialty Start Date End Date Kala Lundberg MD [address] [facility] [place] [address] PCP - General Internal Medicine 06/22/24 Adolfo Raymundo MBBS [address] [facility] [place] [address] [email or web address] Medical Oncology 07/02/24 Maria A Bolivar FNP [address] [place] [address] [email or web address] Nurse Practitioner Medical Oncology 07/18/24 Dejah Shepard NP [address] [place] [address] [email or web address] Nurse Practitioner 08/14/24 Crista Cummings CNP [address] [place] [address] [email or web address] Nurse Practitioner 11/29/24 documented as of this encounter Additional Source Comments The information contained in this document represents components of the legal health record. It is not the complete legal health record.[facility]
--- OUTSIDE RECORDS SUMMARY | 2024-12-18 11:09 | XMS_ITS | Clinical Summary ---
Author Organization [facility], Address [address] [place] [phone] Phone Care Team Providers Care Buyer Name Role Phone Aakash Lundberg MD Primary Care Provider [phone]- [phone] Allergies Active Allergy Reactions Criticality Noted Date [...] Renal osteodystrophy 06/29/2021 Chronic renal disease 01/08/2014 Immunizations Immunization Administration Dates Next Due Influenza Split High [...] Visit [facility] [place] [address] [place] [address] Uvaldo Vivar MD [address] [place] [place] [phone] Health Maintenance Due Date Last Done Comments Pneumococcal Vaccine: 50+ Years (1 of 2 - PCV) 07/16/1964 Influenza Vaccine (#1) 2024 7, 03/17/2005, 04/24/2001 Colorectal Cancer Screening: Sigmoidoscopy Discontinued 03/11/2000 Hepatitis B Vaccine Aged Out No longe r eligible based on patient's age to complete this topic Insurance Medicare [facility] Medicare Care Teams Buyer Relationship Specialty Start Date End Date Aakash Lundberg MD [address] [place] [address] PCP - General Internal Medicine 04/09/21
== END 2024-12-18 11:19 | disposition home or self-care (01) ==
PROVIDERS: PCP Internal Medicine; Visit Provider Physician Assistant
DX: M54.50 Low back pain, unspecified (principal)

== ENCOUNTER → 2024-12-18 10:25 | Outpatient (BNVA) | payer MEDICARE, BC, SELFPAY | PROVIDERS: PCP Internal Medicine; Visit Provider Physician Assistant | DX: M54.50 Low back pain, unspecified (principal) | CPT/HCPCS: 99212 ==

== ENCOUNTER 2025-01-21 11:44 | Outpatient (AMB) | payer MEDICARE, BC, SELFPAY ==
[2025-01-21 12:12] VITALS: BP 118/62; PULSE 86; O2SAT 96; BMI 22.9
--- NOTE | 2025-01-21 12:12 | AM.OFFWIN_ITS ---
Intake Vital Signs 01/21/25 12:12 Height 5 ft 2 in Intake Visit Reasons: thigh pain Patient Tobacco Use Status: Former Tobacco user Allergies tetracycline (TETRACYCLINE) Allergy (Unknown, Verified 12/18/24 10:48) ITCHINESS, rash nitrofurantoin Allergy (Verified 12/18/24 10:48) Swelling atorvastatin (Lipitor) Adverse Reaction (Unknown, Verified 12/18/24 10:48) Muscle pain bactrim Allergy (Unknown, Uncoded 11/29/24 11:24) Elevated LFTs/Itching/Nausea fentanyl Adverse Reaction (Severe, Uncoded 11/29/24 11:24) Unconscious [facility] Medical History History of diverticulitis Anal squamous cell carcinoma Hemorrhoids Current use of mcfp anticoagulation External hemorrhoids Hyperuricemia Vitamin D deficiency Impaired fasting glucose Inflammatory arthritis Multinodular thyroid Mixed stress and urge urinary incontinence Dyslipidemia Paroxysmal atrial fibrillation Chronic kidney disease, stage 3 Osteoporosis COPD (chronic obstructive pulmonary disease) Acquired hypothyroidism Surgical History Hx of colonoscopy S/P partial hysterectomy History of section Family History Father AAA (abdominal aortic aneurysm) CVA (cerebral vascular accident) Mother Diabetes mellitus HTN (hypertension) Gallbladder cancer Sister Diabetes mellitus Son Substance use disorder Son Substance use disorder Social History Household Members: Children Household Members Other:: son Housing: Condominium Housing Other:: [employer] Are you a primary resident care coordinator to a significant other at home: No Do you presently have visiting nurse or other home services: No Alcohol intake: current Alcohol intake frequency: does not drink Comment: steady on feet in room Patient Tobacco Use Status: Former Tobacco user Tobacco use type: Cigarette Years Smoked: 20 years e-Cigarette/Vaping Use: Never Used Second Hand Smoke Exposure: No Substance Use Type: Marijuana Advance Directives Date on File: 05/30/20 service: No Current occupational status: retired Gender identity: Female Cognitive needs: No Hearing needs: No Vision needs: Yes Coding
--- NOTE | 2025-01-21 12:16 | A.OFFPC_ITS ---
Vital Signs 01/21/25 12:12 Height 5 ft 2 in Weight 125 lb BMI 22.9 BP 118/62 Blood Pressure Location Lt brachial Position Sitting Pulse 86 Pulse Source Pulse Oximeter Pulse Oximetry (%) 96 Oxygen Delivery Method Room Air Intake Visit Reasons: thigh pain Allergies tetracycline (TETRACYCLINE) Allergy (Unknown, Verified 01/21/25 12:57) ITCHINESS, rash nitrofurantoin Allergy (Verified 01/21/25 12:57) Swelling atorvastatin (Lipitor) Adverse Reaction (Unknown, Verified 01/21/25 12:57) Muscle pain bactrim Allergy (Unknown, Uncoded 01/21/25 12:57) Elevated LFTs/Itching/Nausea fentanyl Adverse Reaction (Severe, Uncoded 01/21/25 12:57) Unconscious Medication List - Last Reconciled 01/21/25 by Kala Lundberg MD apixaban (Eliquis) 5 mg PO BID diltiazem HCl ER 240 mg PO DAILY flecainide 75 mg PO BID Held on 11/02/24. Instructions: Hold until complete course of azithromycin levothyroxine 75 mcg PO DAILY omeprazole 20 mg PO DAILY@0630 peg [id number] 1-0.2-0.2 % (Artificial Tears ([id number])) 2 drps ophthalmic (eye) Q4H PRN tramadol 50 mg PO Q8H PRN Tobacco use date assessed: 11/29/24 Fall risk assessment: No Falls in past year Last assessed Fall Risk: 01/21/25 Dental Screening Dental Screen Date: 11/29/24 HPI thigh pain HPI Details 79-year-old lady with history of Crohn's disease, and adenosquamous cell carcinoma s/p radiation, hypothyroidism, AFib on apixaban, GERD and hyperlipidemia, here today complaining of acute onset of sharp pain in right hip joint radiating to right buttock, which has been present now for the last 2 weeks. Denies any history of trauma or fall. Patient states that she woke up after sleeping on her couch with severe pain in her right hip and buttock. She has been having pain worse on ambulation and wearing, has difficulty lying flat in bed as she is unable to get up due to pain. Has been sleeping on a lazy boy recliner this past several days. She was seen in the walk-in clinic approximately a month ago and was placed on prednisone for her right hip pain which she states has not really helped. She has been taking Tylenol which affords only temporary relief and has been taking tramadol 50 mg once a day again affording only temporary relief. Denies any accompanying urinary frequency urgency, no burning on urination, has been having some anal leakage after recent radiation. 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 use of long lines operator anticoagulation External hemorrhoids Hyperuricemia Vitamin D deficiency Impaired fasting glucose Inflammatory arthritis Multinodular thyroid Mixed stress and urge urinary incontinence Dyslipidemia Paroxysmal atrial fibrillation Chronic kidney disease, stage 3 Osteoporosis COPD (chronic obstructive pulmonary disease) Acquired hypothyroidism Surgical History Hx of colonoscopy S/P partial hysterectomy History of section Family History Father AAA (abdominal aortic aneurysm) CVA (cerebral vascular accident) Mother Diabetes mellitus HTN (hypertension) Gallbladder cancer Sister Diabetes mellitus Son Substance use disorder Son Substance use disorder Social History Household Members: Children Household Members Other:: son Housing: Condominium Housing Other:: [employer] Are you a primary customer care team coach to a significant other at home: No Do you presently have visiting nurse or other home services: No Alcohol intake: current Alcohol intake frequency: does not drink Comment: steady on feet in room Patient Tobacco Use Status: Former Tobacco user Tobacco use type: Cigarette Years Smoked: 20 years e-Cigarette/Vaping Use: Never Used Second Hand Smoke Exposure: No Substance Use Type: Marijuana Advance Directives Date on File: 05/30/20 service: No Current occupational status: retired Gender identity: Female Cognitive needs: No Hearing needs: No Vision needs: Yes Questionnaire PHQ-9 Over the last 2 weeks, how often have you been bothered by any of the following problems? 1. Little interest or pleasure in doing things: not at all 2. Feeling down, depressed, or hopeless: not at all 3. Trouble falling or staying asleep, or sleeping too much: several days 4. Feeling tired or having little energy: more than half the days 5. Poor appetite or overeating: more than half the days 6. Feeling bad about yourself - or that you are a failure or have let yourself or your family down: not at all 7. Trouble concentrating on things, such as reading the newspaper or watching television: not at all 8. Moving or speaking so slowly that other people could have noticed. Or the opposite - being so fidgety or restless that you have been moving around a lot more than usual: not at all 9. Thoughts that you would be better off or of hurting yourself in some way: not at all Total score: 5 Depression Screening Interpretation: Negative Depression Screening Done: Yes Source: Developed by Drs. [place] Forbes, Leah Yepez, Samuel Pelayo and colleagues, with an educational cuba from [employer]. Thrive Questionnaire Date Thrive assessed: 05/24/24 I am a: Patient What is your living situation today?: I have a steady place to live Within the past 12 months, did the food you bought not last and you didn't have the money to get more?: Never true Within the past 12 months, did you worry whether your food would run out before you got money to buy more?: Never true Do you have trouble paying for medicines?: Yes Do you have trouble getting transportation to medical appointments?: No Do you have trouble paying your heating and electricity bill?: No Do you have trouble taking care of your child, family member or friend?: No Do you have trouble with day-to-day activities such as bathing, preparing meals, shopping, managing finances, etc.?: No Are you currently unemployed and looking for a job?: No Are you interested in more education?: No Please select the resources that you would like help with: None Currently or been in a relationship where the following occur: No concerns reported THRIVE Score: 0 AUDIT C Alcohol Use Questionnaire (AUDIT-C) 1. How often do you have a drink containing alcohol?: Never 3. How often do you have six or more drinks on one occasion?: Never Total Score: 0 CATIA-7 AMB Questionnaire CATIA-7 Date CATIA - 7 assessed: 01/21/25 Feeling nervous, anxious, or on edge: 0 = Not at all Not being able to stop or control worryin = Several days Worrying too much about different things: 0 = Not at all Trouble relaxin = Not at all Being so restless that it is hard to sit still: 0 = Not at all Becoming easily annoyed or irritable: 0 = Not at all Feeling afraid as if something awful might happen: 0 = Not at all Total CATIA-7 score (0-4 normal; 5-9 mild; 10-14 moderate; 15-21 severe): 1 Source: Developed by Drs. [place] Forbes, Leah Yepez, Samuel Pelayo and colleagues, with an educational cuba from [employer]. CATIA-7 Assessment Billing CATIA-7 Assessment Tool: CATIA-7 Assessment 58445 Review of Systems Const Denies chills, Denies fever(s), Denies frequent falls, Denies headache(s), Denies lethargy and Denies malaise ENT Denies headache(s) Card Reports no additional complaints Resp Reports no additional complaints GI Denies abdominal pain, Denies hematochezia, Denies change in bowel habits and Reports heartburn (Controlled on omeprazole) Reports no additional complaints Musc Reports as per HPI, Reports abnormal gait (Antalgic gait, uses a walker), Denies muscle weakness, Denies numbness, Denies radiating pain into limb and Denies tingling Skin/Breast Reports system reviewed and no additional complaints, except as documented Neuro Reports abnormal gait (Antalgic gait, uses a walker), Denies confusion, Denies frequent falls, Denies headache(s), Denies numbness and Denies tingling Psych Reports no additional complaints and Denies confusion Endo Reports no additional complaints Chester/Lymph Reports no additional complaints Aller/Immun Reports no additional complaints Physical exam (Primary Care) Vital Signs: Last Vital Signs Pulse 86 01/21/25 12:12 BP 118/62 01/21/25 12:12 Pulse Ox 96 01/21/25 12:12 Oxygen Delivery Method Room Air 01/21/25 12:12 BMI result Body Mass Index 22.9 Tobacco/Smoking Status: Tobacco use Status Tobacco use date assessed 11/29/24 01/21/25 12:18 Patient Tobacco Use Status Former Tobacco user 01/21/25 12:18 Tobacco use type Cigarette 01/21/25 12:18 e-Cigarette/Vaping Use Never Used 01/21/25 12:18 PHQ-9: PHQ-9 Score PHQ-9: Total score 5 01/21/25 12:18 Depression Screening Interpretation: Negative Thrive Assessment: Date of Thrive Assessment Date Thrive assessed 05/24/24 01/21/25 12:18 Currently or been in a relationship where the following occur: No concerns reported Const Other: Alert elderly lady, ambulatory with walker, as she has pain in her right hip on weight-bearing General: No confusion Nutritional Appearance: obese Orientation/consciousness: patient oriented x3 and No confusion Limitations: ambulation with walker HENMT Head: Yes normocephalic General nose exam: Normal external nose present Face and sinus: Yes face symmetric Mouth: Normal oral and palatal mucosa present and moist mucous membranes Eyes General: appearance normal, both eyes and all related structures Neck Neck: Yes normal visual inspection and Yes full ROM Resp Effort & Inspection: normal respiratory effort and able to speak in complete sentences GI Other: Normal bowel sounds, soft, nontender with no mass palpated. Back/Spine/Pelvis Other: Tenderness on palpation below right greater trochanter, no gross bone deformity no joint swelling seen, decreased range of motion of right hip especially on abduction and external rotation due to pain Skin General skin exam: no rashes or lesions noted Neuro General: patient oriented x3, tone normal, no focal motor deficits and No confusion Extrem General: Yes normal to inspection Coding Level of Care Code Est Pt Level 4 (75958) Diagnoses Acute right hip pain M25.551 Additional Codes CATIA-7 Assessment Billing - CATIA-7 Assessment Tool: CATIA-7 Assessment 86743 ([id number]) Assessment & Plan Assessment & Plan (1) Acute right hip pain: Code(s): M25.551 - Pain in right hip Plan: X-ray of bilateral hip ordered. No improvement with prednisone or Tylenol, with minimal improvement with taking tramadol once a day as needed, advised to take tramadol 50 mg per tablet with Tylenol 500 mg every 8 hours as needed for pain relief. Stat referral ordered to [facility] as per patient's request. Orders: Orders XR hips JOSSELIN min 3V Today M25.551 - Pain in right hip Referrals Orthopedics Referral M25.551 - Pain in right hip Medications: Changed From tramadol 50 mg PO DAILY PRN pain To tramadol 50 mg PO Q8H PRN 40 tabs 0RF pain, severe
== END 2025-01-21 13:36 | disposition home or self-care (01) ==
LOC: HO.HMCC 11:45
PROVIDERS: PCP Internal Medicine; Visit Provider Internal Medicine
DX: M25.551 Pain in right hip (principal)

== ENCOUNTER 2025-01-21 11:44 | Outpatient (REF) | payer MEDICARE, BC, SELFPAY ==
--- NOTE | ~2025-01-21 | XR_ITS ---
EXAMINATION: XR BILATERAL HIPS WITH AP PELVIS CLINICAL INFORMATION: M25.551 - Pain in right hip COMPARISON: Correlated to MRI dated August 31, 2011. TECHNIQUE: AP and oblique views of the hips. FINDINGS: Asymmetric joint space narrowing both coxofemoral joints with mild sclerosis along the articular surface. Subchondral cyst formation involving mostly the left and to a lesser extent right femoral head. No acute cortical disruption or malalignment. No lytic or blastic lesions. 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 Degenerative changes in the symphysis pubis. Electronically signed by: Moses Morales MD 01/21/2025 01:41 PM EDT
--- OUTSIDE RECORDS SUMMARY | 2025-01-21 14:06 | XMS_ITS | Encounter Summary ---
Author Organization [facility] Address [address] [facility] [address] [place] [address] Phone Care Team Providers Care Smooth Plater Name Role Phone Aakash Lundberg MD Primary Care Provider [phone]- [phone] Reason for Visit * Reason Comments Med Refill Encounter Details Date Type Department Care Team (Late Contact Info) Description 10/04/2022 Refill [facility] [address] [place] [address] Gustavo Pina MD [address] [facility] [address] [place] [phone] Social History Tobacco Use Types Packs/Day Years [...] [facility] [address] [place] [address] Uvaldo Vivar MD [address] [facility] [address] [place] [phone] documented as of this encounter Visit Diagnoses Not on filedocumented in this encounter Care Teams Smooth Plater Relationship Specialty Start Date End Date Aakash Lundberg MD [facility] [address] PCP - General Internal Medicine 04/09/21 documented as of this encounter
--- OUTSIDE RECORDS SUMMARY | 2025-01-21 14:07 | XMS_ITS | Encounter Summary ---
Author Organization [facility] [place], Address [address] [place] [address] Phone Care Team Providers Care Meat Grading Machine Operator Name Role Phone Aakash Lundberg MD Primary Care Provider +1- [phone] Encounter Details Date Type Department Care Team (Late Contact Info) Description 07/16/2022 Documentation Only [facility] [address] [place] [address] Uvaldo Vivar MD [address] [place] [address] [place] [phone] Social History Tobacco Use Types Packs/Day Years [...] Visit [facility] [address] [place] [phone] Uvaldo Vivar MD [address] [place] [address] [address] [place]ath [place]érez [place] [address] documented as of this encounter Visit Diagnoses Not on filedocumented in this encounter Care Teams Meat Grading Machine Operator Relationship Specialty Start Date End Date Aakash Lundberg MD [address] [place] [address] PCP - General Internal Medicine 04/09/21 documented as of this encounter
--- OUTSIDE RECORDS SUMMARY | 2025-01-21 14:07 | XMS_ITS | Clinical Summary ---
Author Organization [facility], Address [address] [place] [phone] Phone Care Team Providers Care Nonprofit Manager Name Role Phone Aakash Lundberg MD Primary Care Provider +1- [phone] Allergies Active Allergy Reactions Criticality Noted Date [...] Visit [facility] [place], [facility] - [address] [place] [address] Uvaldo Vivar MD [address] [place] [phone] Health Maintenance Due Date Last Done Comments Pneumococcal Vaccine: 50+ Years (1 of 2 - PCV) 07/16/1964 Influenza Vaccine (#1) 2024 7, 03/17/2005, 04/24/2001 Colorectal Cancer Screening: Sigmoidoscopy Discontinued 03/11/2000 Hepatitis B Vaccine Aged Out No longe r eligible based on patient's age to complete this topic Insurance Medicare [facility] Medicare Care Teams Nonprofit Manager Relationship Specialty Start Date End Date Aakash Lundberg MD [address] [place] [address] PCP - General Internal Medicine 04/09/21
--- OUTSIDE RECORDS SUMMARY | 2025-01-21 14:07 | XMS_ITS | Encounter Summary ---
Author Organization [facility] [place], Address [address] [place] [address] Phone Care Team Providers Care Career Development Director Name Role Phone Aakash Lundberg MD Primary Care Provider +1- [phone] Encounter Details Date Type Department Care Team (Late Contact Info) Description 05/10/2024 Documentation Only [facility] [address] [place] [address] Estee Schafer [address] [place] [phone] Social History Tobacco Use Types Packs/Day [...] Visit [facility] Dr [address]al [address] [place] [address] Uvaldo Vivar MD [address] [place] [address] [place] [address] documented as of this encounter Visit Diagnoses Not on filedocumented in this encounter Care Teams Career Development Director Relationship Specialty Start Date End Date Aakash Lundberg MD [address] [facility] [place] [address] PCP - General Internal Medicine 04/09/21 documented as of this encounter
== END 2025-01-21 11:45 | disposition home or self-care (01) ==
LOC: HO.HMGCX 11:44
PROVIDERS: PCP Internal Medicine; Visit Provider Internal Medicine
DX: M25.551 Pain in right hip (principal); Z79.890 Hormone replacement therapy; Z79.01 Long term (current) use of anticoagulants; Z79.891 Long term (current) use of opiate analgesic; Z79.899 Other long term (current) drug therapy
CPT/HCPCS: 73522; 96127; 99212

== ENCOUNTER → 2025-01-21 13:07 | Outpatient (BNV) | payer MEDICARE, BC, SELFPAY | PROVIDERS: PCP Internal Medicine; Visit Provider Radiology Diagnostic Radiology | DX: M16.0 Bilateral primary osteoarthritis of hip (principal) | CPT/HCPCS: 73522 ==

== ENCOUNTER 2025-02-01 12:45 | Outpatient (AMB) | payer MEDICARE, BC, SELFPAY ==
[2025-02-01 13:08] VITALS: BP 150/82; PULSE 107; TEMP 36.4; O2SAT 100; BMI 21.9
--- NOTE | 2025-02-01 13:08 | MHC.OFFWIV ---
Intake Vital Signs 02/01/25 13:08 Height 5 ft 2 in Weight 120 lb BMI 21.9 BP 150/82 H Blood Pressure Location Lt brachial Position Sitting Pulse 107 H Pulse Source Pulse Oximeter Temp 97.5 F Temp Source Oral Pulse Oximetry (%) 100 Oxygen Delivery Method Room Air Intake Visit Reasons: EP diarrhea, abd pain Intake Note: pt presents with pain to left abdomen for 2 weeks also c/o brown/orange appearing liquid stools since August 27 s/p radiation for anal canal cancer Patient Tobacco Use Status: Former Tobacco user Allergies tetracycline (TETRACYCLINE) Allergy (Unknown, Verified 02/01/25 13:13) ITCHINESS, rash nitrofurantoin Allergy (Verified 02/01/25 13:13) Swelling atorvastatin (Lipitor) Adverse Reaction (Unknown, Verified 02/01/25 13:13) Muscle pain bactrim Allergy (Unknown, Uncoded 01/21/25 12:57) Elevated LFTs/Itching/Nausea fentanyl Adverse Reaction (Severe, Uncoded 01/21/25 12:57) Unconscious Do you need a note to return to daycare/school/sports/work: No HPI HPI Comments History of Present Illness Details History of Present Illness - The patient is an 79-year-old female with a past med hx of Crohn's, proctocolitis, anal squamous cell carcinoma, multinodular thyroid, HLd, CKD3, COPD, hypothyroidism and afib on eliquis presenting with abdominal pain and diarrhea x2 weeks. - She completed chemotherapy and radiation for anal cancer on August 27 at [facility]. - Post-treatment, she has had continuous brown liquid stools but it has increased in frequecy now up to 15-20 times per day and is watery. She has had acute abdominal pain for two weeks, prior to that it was mild since her treatment. - The pain is cramping, located in the left lower quadrant, and does not radiate. - She denies fever but reports elevated blood pressure. - She has a history of diverticulosis, with no known diverticulitis episodes. - She experiences watery diarrhea 15 to 20 times daily, sometimes with blood. - She denies fevers, nausea or vomiting. - She feels dehydrated. Physical Exam General: Cooperative, healthy appearing, comfortable, no acute distress and well developed Orientation: Patient oriented x3 Limitations: No limitations Head: Normal to inspection Ears: Hearing grossly normal bilaterally Nose: Normal External nose present Face and sinus: Normal facial exam Eyes: Appearance normal, both eyes and all related structures Neck: Normal visual inspection and Yes full ROM Respiratory: Normal respiratory effort and able to speak in complete sentences. GI: normoactive BS, soft, extremely TTP LLQ but TTP throughout abdomen, unable to perform mcburneys or murphys Skin: No rashes or lesions noted Neuro: Patient oriented x3, gait normal with walker Extremities: Normal to inspection, moving all extremities normally Review of Systems - Gastrointestinal: Reports cramping abdominal pain, watery diarrhea 15 to 20 times daily, sometimes with blood. Denies fever. - Cardiovascular: Reports elevated blood pressure, usually low. Denies chest pain. - General: Reports feeling dehydrated. Denies fever. All systems reviewed and are unremarkable except as noted in HPI [facility] Medical History History of radiation exposure History of diverticulitis Anal squamous cell carcinoma Hemorrhoids Current use of continuous churn buttermaker anticoagulation External hemorrhoids Hyperuricemia Vitamin D deficiency Impaired fasting glucose Inflammatory arthritis Multinodular thyroid Mixed stress and urge urinary incontinence Dyslipidemia Paroxysmal atrial fibrillation Chronic kidney disease, stage 3 Osteoporosis COPD (chronic obstructive pulmonary disease) Acquired hypothyroidism Surgical History Hx of colonoscopy S/P partial hysterectomy History of section Family History Father AAA (abdominal aortic aneurysm) CVA (cerebral vascular accident) Mother Diabetes mellitus HTN (hypertension) Gallbladder cancer Sister Diabetes mellitus Son Substance use disorder Son Substance use disorder Social History Household Members: Children Household Members Other:: son Housing: Condominium Housing Other:: [employer] Are you a primary home care chaplain to a significant other at home: No Do you presently have visiting nurse or other home services: No Alcohol intake: current Alcohol intake frequency: does not drink Comment: steady on feet in room Patient Tobacco Use Status: Former Tobacco user Tobacco use type: Cigarette Years Smoked: 20 years e-Cigarette/Vaping Use: Never Used Second Hand Smoke Exposure: No Substance Use Type: Marijuana Advance Directives Date on File: 05/30/20 service: No Current occupational status: retired Gender identity: Female Cognitive needs: No Hearing needs: No Vision needs: Yes Physical Exam Vital Signs: Last Vital Signs Temp 97.5 F 02/01/25 13:08 Pulse 107 H 02/01/25 13:08 BP 150/82 H 02/01/25 13:08 Pulse Ox 100 02/01/25 13:08 Oxygen Delivery Method Room Air 02/01/25 13:08 BMI result Body Mass Index 21.9 Assessment & Plan Assessment & Plan (1) Bloody diarrhea: Code(s): R19.7 - Diarrhea, unspecified Plan: Assessment and Plan - Slightly hypertensive 150/82, tachycardic @107, remainder of vital signs normal, exquisitely tender abdomen and 2 weeks of watery diarrhea with blood, and her anal cancer history, she should go to the ED for a thorough evaulation. - Called [facility] ED with expect 1:50pm, spoke with triage provider. (2) Abdominal pain, LLQ (left lower quadrant): Code(s): R10.32 - Left lower quadrant pain Plan: as above Coding Level of Care Code Est Pt Level 5 (47508) Diagnoses Bloody diarrhea R19.7 Abdominal pain, LLQ (left lower quadrant) R10.32
== END 2025-02-01 13:51 | disposition home or self-care (01) ==
PROVIDERS: PCP Internal Medicine; Visit Provider Physician Assistant
DX: R19.7 Diarrhea, unspecified (principal); R10.32 Left lower quadrant pain

== ENCOUNTER → 2025-02-01 12:45 | Outpatient (BNVA) | payer MEDICARE, BC, SELFPAY | PROVIDERS: PCP Internal Medicine; Visit Provider Physician Assistant | DX: R10.32 Left lower quadrant pain (principal); R19.7 Diarrhea, unspecified; K57.90 Diverticulosis of intestine, part unspecified, without perforation or abscess without bleeding; Z79.01 Long term (current) use of anticoagulants | CPT/HCPCS: 99212 ==

== ENCOUNTER 2025-02-01 14:31 | Inpatient (IN) | payer MEDICARE, BC, SELFPAY ==
--- NOTE | ~2025-02-01 | CT_ITS ---
CLINICAL HISTORY: LLQ pain, r o diverticulitis CT abdomen and pelvis with contrast Comparison: CT/SR - CT ABDOMEN PELVIS W IV CON - 10/29/24 23:21 EDT Findings: LIMITED CHEST: Lung bases are clear. LIVER: No focal liver lesion. BILIARY: Cholelithiasis. PANCREAS: No mass or ductal dilatation. SPLEEN: No splenomegaly. KIDNEYS: No hydronephrosis or radiopaque stone. Small hypoattenuating lesions, too small to characterize however may represent cysts. ADRENALS: No nodule. VASCULAR: No aneurysm. RETROPERITONEUM: No lymphadenopathy or mass. BOWEL/MESENTERY: Moderate colonic stool burden. There is severe wall thickening involving the rectosigmoid colon. No measurable fluid collection. ABDOMINAL WALL: No mass or significant abnormality. URINARY BLADDER: Circumferential bladder wall thickening. PELVIC NODES: No pelvic lymphadenopathy. PELVIC ORGANS: Normal for age. BONES: There are 6 lumbar type vertebral bodies, the last rib-bearing vertebral body will be designated T12. New superior endplate compression deformity of the L3 and L4 vertebral bodies compared to 10/29/2024. OTHER: Negative. IMPRESSION: 1. Severe rectosigmoid wall thickening, suggesting proctocolitis. 2. Age indeterminate superior endplate compression deformities of the L3 and L4 vertebral bodies, new when compared to 10/29/2024. 3. Circumferential bladder wall thickening, correlate with urinalysis for cystitis. This document has been electronically signed by: Amy Vivas MD on 02/01/2025 19:59:03
[2025-02-01 15:21] VITALS: BP 112/60; PULSE 109; RESP 20; TEMP 37; O2SAT 99; BMI 19.2
--- NOTE | 2025-02-01 15:21 | ED.ABDPAIN ---
HPI - Abdominal Pain General Stated Complaint: pelvic pain , brown discharge Related Data Home Medications ?Medication ?Instructions ?Recorded ?Confirmed apixaban 5 mg tablet (Eliquis) 5 mg PO BID 05/05/20 10/30/24 flecainide 50 mg tablet 75 mg PO BID 09/09/22 10/30/24 Held on 11/02/24. Instructions: Hold until complete course of azithromycin diltiazem HCl 240 mg 240 mg PO DAILY 07/16/24 10/30/24 tablet,extended release 24 hr Previous Rx's ?Medication ?Instructions ?Recorded omeprazole 20 mg capsule,delayed 20 mg PO DAILY@0630 #1 cap 11/02/24 release peg [id number] 1 2 drp ophthalmic (eye) Q4H PRN Dry 11/02/24 %-0.2 %-0.2 % eye drops Eyes #15 mL (Artificial Tears ([id number])) levothyroxine 75 mcg tablet 75 mcg PO DAILY #90 caps 12/22/24 tramadol 50 mg tablet 50 mg PO Q8H PRN pain, severe #40 01/21/25 tabs Allergies Allergy/AdvReac Type Severity Reaction Status Date / Time tetracycline (TETRACYCLINE) Allergy Unknown ITCHINESS, Verified 02/01/25 15:24 rash nitrofurantoin Allergy Swelling Verified 02/01/25 15:24 atorvastatin (Lipitor) AdvReac Unknown Muscle pain Verified 02/01/25 15:24 bactrim Allergy Unknown Elevated Uncoded 02/01/25 15:24 LFTs/Itching/Nausea fentanyl AdvReac Severe Unconscious Uncoded 02/01/25 15:24 PMFSH Past Medical History Medical History History of radiation exposure History of diverticulitis Anal squamous cell carcinoma Hemorrhoids Current use of supervisor varnish anticoagulation External hemorrhoids Hyperuricemia Vitamin D deficiency Impaired fasting glucose Inflammatory arthritis Multinodular thyroid Mixed stress and urge urinary incontinence Dyslipidemia Paroxysmal atrial fibrillation Chronic kidney disease, stage 3 Osteoporosis COPD (chronic obstructive pulmonary disease) Acquired hypothyroidism Surgical History Hx of colonoscopy S/P partial hysterectomy History of section Family History Family History Father AAA (abdominal aortic aneurysm) CVA (cerebral vascular accident) Mother Diabetes mellitus HTN (hypertension) Gallbladder cancer Sister Diabetes mellitus Son Substance use disorder Son Substance use disorder Social History Social History Household Members: Children Household Members Other:: son Housing: Condominium Housing Other:: [employer] Are you a primary resident care manager rn to a significant other at home: No Do you presently have visiting nurse or other home services: No Alcohol intake: current Alcohol intake frequency: does not drink Comment: steady on feet in room Patient Tobacco Use Status: Former Tobacco user Tobacco use type: Cigarette Years Smoked: 20 years e-Cigarette/Vaping Use: Never Used Second Hand Smoke Exposure: No Substance Use Type: Marijuana Advance Directives Date on File: 05/30/20 service: No Current occupational status: retired Gender identity: Female Cognitive needs: No Hearing needs: No Vision needs: Yes Course Course Course Narrative: This is an RME: Additional HPI, ROS, PE not included below will be deferred to primary provider. RME assessment and note performed by: Agustina Johnson PA-C This is a [id number]-[id number]-female, Crohn's, proctocolitis, anal squamous cell carcinoma, multinodular thyroid, HLd, CKD3, COPD, hypothyroidism and afib on eliquis presenting with abdominal pain and diarrhea x2 weeks. Seen at Urgent care this morning and was sent in for further ER eval. Following note copied from Maricel Canada from Urgent Care: She completed chemotherapy and radiation for anal cancer on August 27 at [facility]. - Post-treatment, she has had continuous brown liquid stools but it has increased in frequecy now up to 15-20 times per day and is watery. She has had acute abdominal pain for two weeks, prior to that it was mild since her treatment. - The pain is cramping, located in the left lower quadrant, and does not radiate. - She denies fever but reports elevated blood pressure. - She has a history of diverticulosis, with no known diverticulitis episodes. - She experiences watery diarrhea 15 to 20 times daily, sometimes with blood. - She denies fevers, nausea or vomiting. - She feels dehydrated. Pt was previously on antibiotics several months ago. Plan: Labs, EKG, UA, further ER eval needed Discharge Plan Discharge Prescriptions: No Action levothyroxine 75 mcg tablet 75 mcg PO DAILY Qty: 90 1RF Artificial Tears([id number]-[id number]) 1-0.2-0.2 % Drops 2 drp ophthalmic (eye) Q4H PRN (Reason: Dry Eyes) Qty: 15 0RF omeprazole 20 mg Capsule,Delayed Release(Dr/Ec) 20 mg PO DAILY@0630 Qty: 1 0RF Eliquis 5 mg tablet 5 mg PO BID Rx Instructions: stop for 3 days before colonoscopy flecainide 50 mg tablet 75 mg PO BID diltiazem HCl 240 mg tablet extended release 24 hr 240 mg PO DAILY tramadol 50 mg tablet 50 mg PO Q8H PRN (Reason: pain, severe) Qty: 40 0RF Print Language: Romansh
--- NOTE | 2025-02-01 15:24 | ECG_ITS ---
Test Reason : TACHYCARDIA Blood Pressure : */* mmHG Vent. Rate : 106 BPM Atrial Rate : 106 BPM P-R Int : 174 ms QRS Dur : 88 ms QT Int : 356 ms P-R-T Axes : 53 60 69 degrees QTcB Int : 472 ms Sinus tachycardia Nonspecific ST abnormality Abnormal ECG When compared with ECG of 01-Nov-2024 14:24, Vent. rate has increased by 38 bpm Referred By: Agustina Johnson Electronically Signed By: JOY LACEY MD
[2025-02-01 15:57] LABS: MANUAL DIFF FLAG NO
[2025-02-01 15:58] LABS: Hematocrit 39.8 % (37.0-47.0); Hemoglobin 12.5 g/dl (12.0-16.0); Imm Gran Abs Auto 0.05 X10*3/uL (0.00-0.03); Imm Gran Pct Auto 0.5 % (0.0-0.4); Lymphocytes Absolute Auto 0.7 X10*3/uL (1.2-4.9); Mean Corpuscular HGB Conc 31.4 g/dl (31.0-35.0); Mean Corpuscular Hemoglobin 29.3 pg (27.0-33.0); Mean Corpuscular Volume 93.4 fL (80.0-98.0); NRBC Abs Auto 0.000 X10*3/uL (0.0-0.012); NRBC Pct Auto 0.0 /100WBC (0.0-0.2); Platelet Count 262 X10*3/uL (160-400); Red Blood Count 4.26 X10*6/uL (4.20-5.50); White Blood Count 10.9 X10*3/uL (4.8-10.8)
[2025-02-01 16:23] LABS: IDNOW Serial# 58CA691E; Influenza B2 Negative (Negative)
[2025-02-01 16:24] LABS: COVID-19 Test Negative (Negative); IDNOW Serial# 55D5AD1C
[2025-02-01 16:29] LABS: Alanine Aminotransferase 7 U/L (0-31); Albumin Level 3.3 g/dL (3.5-5.0); Anion Gap 12 (12-20); Aspartate Amino Transferase 17 U/L (5-31); Blood Urea Nitrogen 18 mg/dL (9-16); Calcium 9.5 mg/dL (8.4-10.2); Carbon Dioxide 27 mmol/L (22-29); Chloride 101 mmol/L (96-108); Creatinine Clr Calc Pharmacy 39.9; Estimated Glomerular Filt Rate 56; Lipase 5 U/L (8-78); Potassium 4.0 mmol/L (3.3-5.1); Sodium 136 mmol/L (135-145); Total Protein 6.9 g/dL (6.5-8.0)
[2025-02-01 16:43] LABS: Alkaline Phosphatase 107 U/L (39-117)
[2025-02-01 17:42] VITALS: BP 151/72; PULSE 90; RESP 16; TEMP 36.5; O2SAT 98
--- NOTE | 2025-02-01 17:47 | HO.NURTONUR ---
Patient awake and alert. skin pwd, resp even and non labored, speaking in full clear sentences. reports left lower quadrant abdominal pain x 2 weeks. diarrhea since August following treatment for rectal cancer. patient reports diarrhea approx 15x/day. denies n/v, denies urinary symptoms. physician to bedside for eval, patient refusing rectal exam at this time, stating they are very painful for her. pt aware of plan of care for CT and need for urine and stool samples. Patient lives w/ son, ambulatory with walker.
--- NOTE | 2025-02-01 17:50 | ED.ABDPAIN ---
HPI - Abdominal Pain General Chief Complaint: Abdominal Pain Stated Complaint: pelvic pain , brown discharge Time Seen by Provider: 02/01/25 17:41 Source: patient Mode of arrival: ambulatory Limitations: no limitations History of Present Illness ED Provider: DR. Shields HPI narrative: 79-year-old female history of colon cancer s/p chemo and radiation therapy presented for evaluation of left lower abdominal pain that has been constant for the past 2 to 3 weeks has been associated with nonbloody watery diarrhea yellow to orange in color, no fever, no chills, no dysuria, no frequency urination, no recent use of antibiotic. No history of intra-abdominal surgery, positive passing flatus, last bowel movement was this morning. No recent use of antibiotic, no recent travel. Related Data Home Medications ?Medication ?Instructions ?Recorded ?Confirmed apixaban 5 mg tablet (Eliquis) 5 mg PO BID 05/05/20 10/30/24 flecainide 50 mg tablet 75 mg PO BID 09/09/22 10/30/24 Held on 11/02/24. Instructions: Hold until complete course of azithromycin diltiazem HCl 240 mg 240 mg PO DAILY 07/16/24 10/30/24 tablet,extended release 24 hr Previous Rx's ?Medication ?Instructions ?Recorded omeprazole 20 mg capsule,delayed 20 mg PO DAILY@0630 #1 cap 11/02/24 release peg [id number] 1 2 drp ophthalmic (eye) Q4H PRN Dry 11/02/24 %-0.2 %-0.2 % eye drops Eyes #15 mL (Artificial Tears ([id number])) levothyroxine 75 mcg tablet 75 mcg PO DAILY #90 caps 12/22/24 tramadol 50 mg tablet 50 mg PO Q8H PRN pain, severe #40 01/21/25 tabs Allergies Allergy/AdvReac Type Severity Reaction Status Date / Time tetracycline (TETRACYCLINE) Allergy Unknown ITCHINESS, Verified 02/01/25 15:24 rash nitrofurantoin Allergy Swelling Verified 02/01/25 15:24 atorvastatin (Lipitor) AdvReac Unknown Muscle pain Verified 02/01/25 15:24 bactrim Allergy Unknown Elevated Uncoded 02/01/25 15:24 LFTs/Itching/Nausea fentanyl AdvReac Severe Unconscious Uncoded 02/01/25 15:24 Review of Systems Review of Systems All other systems are reviewed and are negative Constitutional: Reports as per HPI and Reports no additional constitutional complaints Eyes: Reports as per HPI and Reports no additional eye complaints Reports system reviewed and no additional complaints, except as documented Cardiovascular: Reports as per HPI and Reports no additional cardiovascular complaints Respiratory: Reports as per HPI and Reports no additional respiratory complaints Gastrointestinal: Reports as per HPI and Reports no additional gastrointestinal complaints Genitourinary: Reports no additional female genitourinary complaints Musculoskeletal: Reports no additional musculoskeletal complaints Skin/Breast: Reports system reviewed and no additional complaints, except as docu Psychiatric: Reports no additional psychiatric complaints Endocrine: Reports no additional endocrine complaints Hematologic/Lymphatic: Reports no additional hematologic/lymphatic complaints Allergic/Immunologic: Reports no additional allergic/immunologic complaints Reports system reviewed and no additional complaints, except as documented and Reports Abnormal speech present [facility] Past Medical History Medical History History of radiation exposure History of diverticulitis Anal squamous cell carcinoma Hemorrhoids Current use of custodial anticoagulation External hemorrhoids Hyperuricemia Vitamin D deficiency Impaired fasting glucose Inflammatory arthritis Multinodular thyroid Mixed stress and urge urinary incontinence Dyslipidemia Paroxysmal atrial fibrillation Chronic kidney disease, stage 3 Osteoporosis COPD (chronic obstructive pulmonary disease) Acquired hypothyroidism Surgical History Hx of colonoscopy S/P partial hysterectomy History of section Family History Family History Father AAA (abdominal aortic aneurysm) CVA (cerebral vascular accident) Mother Diabetes mellitus HTN (hypertension) Gallbladder cancer Sister Diabetes mellitus Son Substance use disorder Son Substance use disorder Social History Social History Household Members: Children Household Members Other:: son Housing: Condominium Housing Other:: [employer] Are you a primary rehab care assistant to a significant other at home: No Do you presently have visiting nurse or other home services: No Alcohol intake: current Alcohol intake frequency: does not drink Comment: steady on feet in room Patient Tobacco Use Status: Former Tobacco user Tobacco use type: Cigarette Years Smoked: 20 years Smoked in Last 30 Days: No e-Cigarette/Vaping Use: Never Used Second Hand Smoke Exposure: No Use of substances other than those prescribed or required for medical reasons: No Substance Use Type: Marijuana Advance Directives: Yes Advance Directives on File: Yes Advance Directives Date on File: 05/30/20 service: No Current occupational status: retired Gender identity: Female Cognitive needs: No Hearing needs: No Vision needs: Yes Physical Exam ED Vital Signs: Vital Signs - 24 hr 02/01/25 15:21 02/01/25 17:42 Temperature 98.6 F 97.7 F Pulse Rate 109 H 90 Respiratory Rate 20 16 Blood Pressure 112/60 151/72 H Pulse Oximetry 99 98 Oxygen Delivery Method Room Air Room Air BMI result Body Mass Index 19.2 Vital signs have been reviewed and appear to be correct. Blood pressure elevated. Heart rate normal. Respiratory rate normal. Temperature normal. Oxygen saturation normal. Appearance: Alert. Oriented X3. No acute distress. Head: Normal external exam. Normocephalic. Atraumatic. No Mohan signs noted. No raccoon eyes noted Eyes: PERRLA. EOMI. Conjunctiva and sclera normal. Eyelids normal. ENT: TM's Normal. Pharynx normal. Uvula midline. Moist mucous membranes. No trismus noted. No drooling noted. No muffled voice noted. Neck: Normal inspection. Neck supple. FROM. No adenopathy. Thyroid Normal. No meningeal signs. No neck mass noted. CVS: Normal heart rate and rhythm. Heart sound normal. No murmurs noted. Pulses normal throughout. Respiratory: No respiratory distress. Painless inspiration. Breath sounds normal. No wheezes/rales/rhonchi noted. Chest nontender. No accessory muscle usage noted or decreased air movement noted. Abdomen: Soft, left lower quadrant abdominal tenderness, no rebound tenderness, no guarding. Bowel sounds normal in all 4 quadrants. No distention noted. No organomegaly noted. No visible injury noted. Rectal exam: Patient declined exam. Back: No CVA tenderness. Full range of motion noted. Skin: Skin warm and dry. Normal skin color. Normal skin turgor. No rashes/lesions/lacerations noted. Extremities: No lower extremity edema. Extremities exhibit normal range of motion. Extremities nontender. Neuro: Oriented X 3. Cranial nerve exam: II-XII are grossly intact No motor deficit. No sensory deficit. Reflexes normal. Course Reevaluation(s) Reevaluation #1: Acute colitis/acute UTI, no sepsis criteria. Case was discussed with Dr. Ray is to admit to medical floor cover with antibiotic and fluids. Time: 20:17 Medical Decision Making Differential Diagnosis Differential Diagnoses: The differential diagnosis associated with the presentation includes (Diverticulitis, colitis, pancreatitis, viscus perforation, UTI, electrolyte derangement, severe anemia.) Admission/Observation Consideration of admission/observation: Escalation of care including admission/observation considered Consult Healthcare Provider Management of the patient was discussed with: Hospitalist (Dr. Dominguez) and Legal Recovery Specialist (Dr. Ray) Lab Data MDM Lab Attestation statement: I reviewed the patient's lab results. 02/01/25 15:50 02/01/25 15:50 Labs: Lab Results 02/01/25 02/01/25 02/01/25 Range/Units 15:50 18:54 19:26 WBC 10.9 H (4.8-10.8) X10*3/uL RBC 4.26 (4.20-5.50) X10*6/uL Hgb 12.5 (12.0-16.0) g/dl Hct 39.8 (37.0-47.0) % MCV 93.4 (80.0-98.0) fL MCH 29.3 (27.0-33.0) pg MCHC 31.4 (31.0-35.0) g/dl RDW 14.3 (11.0-16.0) % Plt Count 262 (160-400) X10*3/uL MPV 8.5 L (9.4-12.3) fL Immature Gran % (Auto) 0.5 H (0.0-0.4) % Neut % (Auto) 81.9 H (45-73) % Lymph % (Auto) 6.5 L (20-40) % [place] % (Auto) 9.2 (2-11) % Eos % (Auto) 1.2 (0-4) % Baso % (Auto) 0.7 (0-2) % Lymph # (Auto) 0.7 L (1.2-4.9) X10*3/uL [place] # (Auto) 1.0 (0.1-1.2) X10*3/uL Eos # (Auto) 0.1 (0.0-0.4) X10*3/uL Baso # (Auto) 0.1 (0.0-0.2) X10*3/uL Abs Immat Gran (auto) 0.05 H (0.00-0.03) X10*3/uL Absolute Neuts (auto) 9.0 H (2.0-8.3) x10*3/uL Absolute Nucleated RBC 0.000 (0.0-0.012) X10*3/uL Nucleated RBC % (auto) 0.0 (0.0-0.2) /100WBC Sodium 136 (135-145) mmol/L Potassium 4.0 (3.3-5.1) mmol/L Chloride 101 (96-108) mmol/L Carbon Dioxide 27 (22-29) mmol/L Anion Gap 12 (12-20) BUN 18 H (9-16) mg/dL Creatinine 0.96 (0.5-1.4) mg/dL Estim Creat Clear Calc 39.9 Estimated GFR 56 Random Glucose 106 (60-115) mg/dL Lactic Acid 1.4 (0.5-2.0) mmol/L Calcium 9.5 D (8.4-10.2) mg/dL Total Bilirubin 0.5 (0.0-1.0) mg/dL Direct Bilirubin 0.2 (0.0-0.5) mg/dL AST 17 (5-31) U/L ALT 7 (0-31) U/L Alkaline Phosphatase 107 (39-117) U/L Total Protein 6.9 (6.5-8.0) g/dL Albumin 3.3 L (3.5-5.0) g/dL Lipase 5 L (8-78) U/L Urine Color Yellow Urine Appearance Cloudy Urine pH 7.0 (5.0-9.0) Ur Specific [place] >= 1.030 H (1.005-1.025) Urine Protein Trace (Neg-Trace) mg/dL Urine Glucose (UA) Negative (Negative) mg/dL Urine Ketones 15 (Negative) mg/dL Urine Blood Small (1+) H (Negative) Urine Nitrite Positive H (Negative) Ur Leukocyte Esterase Large (3+) H (Negative) Urine RBC 3-5 H (0-2) /HPF Urine WBC >50 H (0-5) /HPF Ur Squamous Epith Cells 0-2 (0-2) /HPF Urine Bacteria 4+ (None Seen) Hyaline Casts 3-5 (0-2) /LPF COVID-19 (MIKE) Negative (Negative) COVID-19 Clin Com See Note Influenza Type A (LIZANDRO) Negative (Negative) Influenza Type B (LIZANDRO) Negative (Negative) Influenza A & B Note See Note Independent Interpretation I performed an independent interpretation of an: CT Scan (Abdomen and pelvis:1. Severe rectosigmoid wall thickening, suggesting proctocolitis. 2. Age indeterminate superior endplate compression deformities of the L3 and L4 vertebral bodies, new when compared to 10/29/2024. 3. Circumferential bladder wall thickening, correlate with urinalysis for cystitis) Radiology Impression Discussion of test interpretation with radiology: I have reviewed the radiologist's reading. Medications Administered Discontinued Medications Generic Name Dose Route Start Last Admin Trade Name Freq PRN Reason Stop Dose Admin Metronidazole 500 mg in 100 mls @ 100 mls/hr 02/01/25 19:13 02/01/25 19:42 Flagyl IV 02/01/25 20:12 100 mls/hr ONCE ONE Administration Iohexol 100 ml 02/01/25 18:27 02/01/25 18:27 Iohexol 350 Mg/Ml 100 Ml Infus..Btl IV 02/01/25 18:28 85 ml ONCE ONE Administration Discharge Plan Discharge Clinical Impression: Colitis, Acute UTI, Abdominal pain Patient Disposition: Admitted As Inpatient Print Language: Cambodian
--- NOTE | 2025-02-01 18:21 | PC.NURSE ---
pt to CT at this time
[2025-02-01] MEDS: iohexoL 350 MG/ML 100 ML INFUS..BTL IV (18:27)
[2025-02-01 19:02] LABS: Appearance Urine Cloudy; Glucose Urine UA Negative (Negative); PH 7.0 (5.0-9.0); Specific Gravity - Urine >= 1.030 (1.005-1.025); UMIC TRIGGER UACC YES
[2025-02-01 19:16] LABS: UACC Culture Trigger YES
[2025-02-01] MEDS: Lactated Ringers 500 ML IV (19:42)
[2025-02-01] MEDS: metroNIDAZOLE/NS 500 MG/100 ML PIGGYBACK 100 MG IV (19:42)
--- NOTE | 2025-02-01 21:06 | PM.IMHP ---
History of Present Illness Date of Service: 02/01/25 Attending physician on admission: Simón Dominguez Chief Complaint: LLQ pain, diarrhea Patient is an 79-year-old female with a past medical history significant for Crohn's disease, history anal cancer s/p radiation and chemotherapy last treatment in August, diverticulosis, hypothyroid, paroxysmal AFib on Eliquis, hypothyroidism and mild COPD, who presented to the ED due to 2 weeks of left lower quadrant pain with significant diarrhea, 15-20 times per day. The patient reports the diarrhea is watery and yellow/orange. She denies any recent antibiotics or travel. She denies any upper abdominal pain, no nausea, vomiting, fever or chills. No chest pain or shortness of breath. She denies any urinary symptoms including frequency, urgency or dysuria. Review of Systems Constitutional: Constitutional: Denies chills, Denies fatigue, Denies fever(s) and Denies headache(s) Eyes: Eyes: Denies change in vision ENT: Denies headache(s), Denies nasal congestion and Denies sore throat Cardiovascular: Cardiovascular: Denies chest pain, Denies rapid heart rate, Denies leg edema, Denies lightheadedness and Denies dyspnea Respiratory: Respiratory: Denies chest congestion, Denies cough, Denies dyspnea and Denies wheezing Gastrointestinal: Gastrointestinal: Reports as per HPI Genitourinary: Genitourinary: Denies difficulty voiding, Denies dysuria and Denies urinary urgency Musculoskeletal: Musculoskeletal: Denies myalgias Integumentary/Breasts: Skin/Breast: Denies rash Neurologic: Denies confusion and Denies headache(s) Psychiatric: Psychiatric: Denies confusion Endocrine: Endocrine: Denies fatigue Hematologic/Lymphatic: Hematologic/Lymphatic: Denies easy bleeding and Denies easy bruising Allergic/Immunologic: Allergic/Immunologic: Denies wheezing PMFSH Medical History History of radiation exposure History of diverticulitis Anal squamous cell carcinoma Hemorrhoids Current use of long term care pharmacist anticoagulation External hemorrhoids Hyperuricemia Vitamin D deficiency Impaired fasting glucose Inflammatory arthritis Multinodular thyroid Mixed stress and urge urinary incontinence Dyslipidemia Paroxysmal atrial fibrillation Chronic kidney disease, stage 3 Osteoporosis COPD (chronic obstructive pulmonary disease) Acquired hypothyroidism Family History Father AAA (abdominal aortic aneurysm) CVA (cerebral vascular accident) Mother Diabetes mellitus HTN (hypertension) Gallbladder cancer Sister Diabetes mellitus Son Substance use disorder Son Substance use disorder Surgical History Hx of colonoscopy S/P partial hysterectomy History of section Social History Household Members: Children Household Members Other:: son Housing: Condominium Housing Other:: Duplex Are you a primary healthcare consultant to a significant other at home: No Do you presently have visiting nurse or other home services: No Alcohol intake: current Alcohol intake frequency: does not drink Comment: steady on feet in room Patient Tobacco Use Status: Former Tobacco user Tobacco use type: Cigarette Years Smoked: 20 years Smoked in Last 30 Days: No e-Cigarette/Vaping Use: Never Used Second Hand Smoke Exposure: No Use of substances other than those prescribed or required for medical reasons: No Substance Use Type: Marijuana Advance Directives: Yes Advance Directives on File: Yes Advance Directives Date on File: 05/30/20 service: No Current occupational status: retired Gender identity: Female Cognitive needs: No Hearing needs: No Vision needs: Yes Meds Allergies Allergy/AdvReac Type Severity Reaction Status Date / Time tetracycline (TETRACYCLINE) Allergy Unknown ITCHINESS, Verified 02/01/25 15:24 rash nitrofurantoin Allergy Swelling Verified 02/01/25 15:24 atorvastatin (Lipitor) AdvReac Unknown Muscle pain Verified 02/01/25 15:24 bactrim Allergy Unknown Elevated Uncoded 02/01/25 15:24 LFTs/Itching/Nausea fentanyl AdvReac Severe Unconscious Uncoded 02/01/25 15:24 Active Medications: Current Medications Metronidazole (Flagyl) 500 mg in 100 mls @ 100 mls/hr IV Q8H BARBARA Levofloxacin (Levaquin) 750 mg in 150 mls @ 100 mls/hr IV Q48H [facility] Home Medications ?Medication ?Instructions ?Recorded ?Confirmed ?Last Taken ?Type apixaban 5 mg tablet (Eliquis) 5 mg PO BID 05/05/20 02/01/25 02/01/25 History flecainide 50 mg tablet 75 mg PO BID 09/09/22 02/01/25 02/01/25 History Held on 11/02/24. Instructions: Hold until complete course of azithromycin diltiazem HCl 240 mg 240 mg PO DAILY 07/16/24 02/01/25 02/01/25 History tablet,extended release 24 hr Physical Exam Vital Signs and Narrative: Vital Signs: Last Vital Signs Temp 97.7 F 02/01/25 17:42 Pulse 90 02/01/25 17:42 Resp 16 02/01/25 17:42 BP 151/72 H 02/01/25 17:42 Pulse Ox 98 02/01/25 17:42 O2 Del Method Room Air 02/01/25 17:42 BMI result Body Mass Index 19.2 General: AOx3, no acute distress Resp: CTA bilaterally CVS: Tachycardic, regular rhythm GI: +BS, tender LLQ, no distention Skin: Warm, dry Neuro: Cranial nerves II-XII grossly intact bilaterally. Motor grossly intact bilaterally Extremities: No pitting edema Psych: Appropriate affect Const: General: No confusion Orientation/consciousness: No confusion Neuro: General: No confusion Results Labs 02/01/25 15:50 02/01/25 15:50 Labs: Laboratory Results - last 24 hr 02/01/25 02/01/25 02/01/25 15:50 18:54 19:26 MCV 93.4 MCH 29.3 MCHC 31.4 RDW 14.3 Plt Count 262 MPV 8.5 L Immature Gran % (Auto) 0.5 H Neut % (Auto) 81.9 H Lymph % (Auto) 6.5 L [place] % (Auto) 9.2 Eos % (Auto) 1.2 Baso % (Auto) 0.7 Lymph # (Auto) 0.7 L [place] # (Auto) 1.0 Eos # (Auto) 0.1 Baso # (Auto) 0.1 Abs Immat Gran (auto) 0.05 H Absolute Neuts (auto) 9.0 H Absolute Nucleated RBC 0.000 Nucleated RBC % (auto) 0.0 Anion Gap 12 Estim Creat Clear Calc 39.9 Estimated GFR 56 Random Glucose 106 Lactic Acid 1.4 Calcium 9.5 D Total Bilirubin 0.5 Direct Bilirubin 0.2 AST 17 ALT 7 Alkaline Phosphatase 107 Total Protein 6.9 Albumin 3.3 L Lipase 5 L Urine Color Yellow Urine Appearance Cloudy Urine pH 7.0 Ur Specific [place] >= 1.030 H Urine Protein Trace Urine Glucose (UA) Negative Urine Ketones 15 Urine Blood Small (1+) H Urine Nitrite Positive H Ur Leukocyte Esterase Large (3+) H Urine RBC 3-5 H Urine WBC >50 H Ur Squamous Epith Cells 0-2 Urine Bacteria 4+ Hyaline Casts 3-5 COVID-19 (MIKE) Negative COVID-19 Clin Com See Note Influenza Type A (LIZANDRO) Negative Influenza Type B (LIZANDRO) Negative Influenza A & B Note See Note Assessment and Plan (1) Proctocolitis: Status: Acute (2) Acute UTI: Status: Acute Plan Patient is an 79-year-old female with a past medical history significant for Crohn's disease, history anal cancer s/p radiation and chemotherapy last treatment in August, diverticulosis, hypothyroid, paroxysmal AFib on Eliquis, hypothyroidism and mild COPD, who presented to the ED due to 2 weeks of left lower quadrant pain with significant diarrhea, 15-20 times per day. Admission for acute procto colitis and UTI Proctocolitis on CT - general surgery following, recs: Levaquin and Flagyl - IV fluids - stool studies Acute UTI - Levaquin as above Hypothyroid - levothyroxine Paroxysmal AFib - Eliquis, diltiazem Mild COPD, no acute exacerbation - no home meds CKD 3, at baseline Full code VTE prophylaxis: Eliquis Patient with severe proctocolitis on CT complicated by acute UTI, requiring admission for at least 2 midnight stay for IV antibiotics and specialist consultation. Quality Stroke Does the patient have a stroke diagnosis?: No VTE Prior VTE?: No VTE Risk Level:: Medical - moderate - high VTE Device Contraindication: Treatment Not Indicated VTE Drug Contraindication: N/A - Med Ordered
--- NOTE | 2025-02-01 21:16 | PHA.MEDREC ---
Addendum entered by Shivam Chiu RPh 02/01/25 21:19: MED REC REVIEWED BY [facility] Original Note: Pharmacy Consult ? Medication Reconciliation Pharmacy has completed the medication reconciliation. Patient was able to name all of her medications. Patient had all her morning medications today.
[2025-02-01 21:39] VITALS: BP 148/57; PULSE 96; RESP 16; TEMP 36.8; O2SAT 96
[2025-02-01 21:48] VITALS: BP 157/56; PULSE 106
--- NOTE | 2025-02-01 21:48 | PC.NURSE ---
patient returned from bathroom, steady gait with walker, unable to obtain stool sample as contaminated with urine, will attempt later. iv abx infusing.
--- NOTE | 2025-02-01 23:06 | PC.NURSE ---
there are no prn orders available currently. patient said her pain level is 2/10 and requested Tylenol. also wanted something to help her sleep. initially refused Melatonin now agreeable. she said in the past she was given a sleeping medication while inpatient but unsure of what it was. Wendy WHITMAN made aware.
[2025-02-01] MEDS: Lactated Ringers 1,000 ML 75 ML IVCONT (23:36)
[2025-02-02] VITALS (7 sets, daily range): BP systolic 118–172; BP diastolic 58–83; PULSE 80–98; RESP 16–18; TEMP 36.2–36.9; O2SAT 94–98
[2025-02-02 02:15] LABS: CDiff Gene PCR NEGATIVE (Negative)
[2025-02-02] MEDS: metroNIDAZOLE/NS 500 MG/100 ML PIGGYBACK 100 MG IV ×3 (04:10→20:22)
[2025-02-02 05:58] LABS: MANUAL DIFF FLAG NO
[2025-02-02 06:14] LABS: Hematocrit 39.0 % (37.0-47.0); Hemoglobin 12.3 g/dl (12.0-16.0); Imm Gran Abs Auto 0.06 X10*3/uL (0.00-0.03); Imm Gran Pct Auto 0.6 % (0.0-0.4); Lymphocytes Absolute Auto 0.9 X10*3/uL (1.2-4.9); Mean Corpuscular HGB Conc 31.5 g/dl (31.0-35.0); Mean Corpuscular Hemoglobin 29.6 pg (27.0-33.0); Mean Corpuscular Volume 93.8 fL (80.0-98.0); NRBC Abs Auto 0.000 X10*3/uL (0.0-0.012); NRBC Pct Auto 0.0 /100WBC (0.0-0.2); Platelet Count 211 X10*3/uL (160-400); Red Blood Count 4.16 X10*6/uL (4.20-5.50); White Blood Count 9.4 X10*3/uL (4.8-10.8)
[2025-02-02 06:23] LABS: Anion Gap 14 (12-20); Blood Urea Nitrogen 11 mg/dL (9-16); Calcium 9.0 mg/dL (8.4-10.2); Carbon Dioxide 23 mmol/L (22-29); Chloride 102 mmol/L (96-108); Creatinine Clr Calc Pharmacy 46.8; Estimated Glomerular Filt Rate > 60; Potassium 4.0 mmol/L (3.3-5.1); Sodium 135 mmol/L (135-145)
[2025-02-02 06:39] LABS: Thyroid Stimulating Hormone 6.99 uIU/mL (0.32-4.0)
[2025-02-02 08:04] LABS: Free T4 (Free Thyroxine) 1.32 ng/dL (0.71-1.85)
[2025-02-02] MEDS: dilTIAZem HCL CD 240 MG CAP.ER.DEG PO (08:39)
--- NOTE | 2025-02-02 09:20 | P.CONGS_ITS ---
History of Present Illness Consult details Consult date: 02/02/25 Narrative: 79 year female with multiple medical problems including Crohn's disease, COPD, atrial fibrillation on Eliquis, hypothyroidism, and anal cancer, admitted last night because of severe diarrhea. She is from [facility] and says that she has been having profuse watery diarrhea for about 2 weeks now. She says that sometimes it would be about 20 times a day. She also describes left lower quadrant pain She is known to me because of a history of anal cancer. She had undergone therapy and radiation for this. She denies any fever or chills. Review of Systems 2 Constitutional: Constitutional: Denies chills, Denies fever(s) and Reports weakness Cardiovascular: Cardiovascular: Denies chest pain, Denies dyspnea and Reports dyspnea on exertion Respiratory: Respiratory: Denies cough, Denies dyspnea and Reports dyspnea on exertion Gastrointestinal: Gastrointestinal: Denies hematochezia and Reports diarrhea Genitourinary: Genitourinary: Denies hematuria Musculoskeletal: Musculoskeletal: Denies back pain and Denies limited range of motion Neurologic: Denies focal weakness, Denies convulsions and Reports weakness Psychiatric: Psychiatric: Denies depression and Denies mood swings PMFSH Past Medical History Medical History History of radiation exposure History of diverticulitis Anal squamous cell carcinoma Hemorrhoids Current use of manager long term care anticoagulation External hemorrhoids Hyperuricemia Vitamin D deficiency Impaired fasting glucose Inflammatory arthritis Multinodular thyroid Mixed stress and urge urinary incontinence Dyslipidemia Paroxysmal atrial fibrillation Chronic kidney disease, stage 3 Osteoporosis COPD (chronic obstructive pulmonary disease) Acquired hypothyroidism Family History Family History Father AAA (abdominal aortic aneurysm) CVA (cerebral vascular accident) Mother Diabetes mellitus HTN (hypertension) Gallbladder cancer Sister Diabetes mellitus Son Substance use disorder Son Substance use disorder Surgical History Surgical History Hx of colonoscopy S/P partial hysterectomy History of section Social History Social History Household Members: Children Household Members Other:: son Housing: House Housing Other:: [employer] Are you a primary progressive care unit registered nurse to a significant other at home: No Do you presently have visiting nurse or other home services: No Alcohol intake: current Alcohol intake frequency: does not drink Comment: steady on feet in room Patient Tobacco Use Status: Former Tobacco user Tobacco use type: Cigarette Years Smoked: 20 years Smoked in Last 30 Days: No e-Cigarette/Vaping Use: Never Used Second Hand Smoke Exposure: No Use of substances other than those prescribed or required for medical reasons: No Substance Use Type: Marijuana Currently Displaying Signs/Symptoms of Drug Intoxication Withdrawal: No Have you been hit, kicked, punched, or otherwise hurt by someone within the past year? If so, by whom?: No Do you feel safe in your current relationship?: No Current Relationship Is there a partner from a previous relationship who is making you feel unsafe now?: No Are you made to feel afraid or neglected: No Advance Directives: Yes Advance Directives on File: Yes Advance Directives Date on File: 05/30/20 Do you have a plan to hurt others: No Plan Recently lost weight without trying: No Nutrition Risks: No Nutritional Risk Patient : No : No Poor oral hygiene: No service: No Current occupational status: retired Gender identity: Female Cognitive needs: No Hearing needs: No Vision needs: Yes Meds Allergies Allergy/AdvReac Type Severity Reaction Status Date / Time tetracycline (TETRACYCLINE) Allergy Unknown ITCHINESS, Verified 02/01/25 15:24 rash nitrofurantoin Allergy Swelling Verified 02/01/25 15:24 atorvastatin (Lipitor) AdvReac Unknown Muscle pain Verified 02/01/25 15:24 bactrim Allergy Unknown Elevated Uncoded 02/01/25 15:24 LFTs/Itching/Nausea fentanyl AdvReac Severe Unconscious Uncoded 02/01/25 15:24 Active Medications: Current Medications Acetaminophen (Acetaminophen 325 Mg Tablet) 650 mg PO Q6H PRN PRN Reason: Pain, Mild 1-3,fever,headache Last Admin: 02/01/25 23:31 Dose: 650 mg Apixaban (Apixaban 5 Mg Tablet) 5 mg PO BID BARBARA Last Admin: 02/02/25 08:39 Dose: 5 mg Artificial Tears (Artificial Tears 15 Ml Drops) 2 drop EYE-BOTH Q4H PRN PRN Reason: Dry Eyes Calcium Carbonate (Calcium Carbonate 750 Mg Tab.Chew) 750 mg PO Q4H PRN PRN Reason: Heartburn Diltiazem HCl (Diltiazem Hcl Cd 240 Mg Cap.Er.Deg) 240 mg PO DAILY [facility]; Protocol Last Admin: 02/02/25 08:39 Dose: 240 mg Metronidazole (Flagyl) 500 mg in 100 mls @ 100 mls/hr IV Q8H [facility] Last Infusion: 02/02/25 05:12 Dose: Infused Levofloxacin (Levaquin) 750 mg in 150 mls @ 100 mls/hr IV Q48H [facility] Lactated Ringer's (Lr) 1,000 mls @ 75 mls/hr IVCONT .[id number] [facility] Last Admin: 02/01/25 23:36 Dose: 75 mls/hr Levothyroxine Sodium (Levothyroxine Sodium 75 Mcg Tablet) 75 mcg PO DAILY@0630 [facility] Last Admin: 02/02/25 05:28 Dose: 75 mcg Magnesium Hydroxide (Milk Of Magnesia 30 Ml Oral.Susp) 30 ml PO DAILY PRN PRN Reason: Constipation Melatonin (Melatonin 3 Mg Tablet) 6 mg PO BEDTIME PRN PRN Reason: Insomnia Last Admin: 02/01/25 23:31 Dose: 6 mg Omeprazole (Omeprazole 20 Mg Capsule.Dr) 20 mg PO DAILY@06 [facility] Last Admin: 02/02/25 05:28 Dose: 20 mg Ondansetron HCl (Ondansetron Hcl 4 Mg/2 Ml Vial) 4 mg IVPUSH Q8H PRN PRN Reason: Nausea and Vomiting Oxycodone HCl (Oxycodone Hcl Immed Release 5 Mg Tablet) 5 mg PO Q6H PRN PRN Reason: Pain, Severe (Pain Scale 7-10) Sodium Chloride (0.9 % Sodium Chloride Flush 3 Ml Syringe) 3 ml IVFLUSH QSHIFT [facility] Last Admin: 02/02/25 08:39 Dose: Not Given Tramadol HCl (Tramadol Hcl 50 Mg Tablet) 50 mg PO Q8H PRN PRN Reason: Pain, Moderate(Pain Scale 4-6) Home Medications ?Medication ?Instructions ?Recorded ?Confirmed ?Last Taken ?Type apixaban 5 mg tablet (Eliquis) 5 mg PO BID 05/05/2002/01/25 History flecainide 50 mg tablet 75 mg PO BID 09/09/2202/01/25 History Held on 11/02/24. Instructions: Hold until complete course of azithromycin diltiazem HCl 240 mg 240 mg PO DAILY 07/16/2402/1602/01/25 History tablet,extended release 24 hr Physical Exam 2 Vital Signs: Vital Signs: Last Vital Signs Temp 97.2 F 02/02/25 08:00 Pulse 98 02/02/25 08:00 Resp 18 02/02/25 08:00 BP 162/77 H 02/02/25 08:00 Pulse Ox 96 02/02/25 08:00 O2 Del Method Room Air 02/02/25 08:00 BMI result Body Mass Index 20.0 Const: Other: Frail looking, uses a walker General: comfortable and no acute distress Orientation/consciousness: p atient oriented x3 Neck: Neck: Yes no lymphadenopathy Resp: Auscultation: clear to auscultation bilaterally Cardio: Rhythm: regular rhythm GI: Other: Some tenderness in the left lower quadrant Rectal exam shows that the large mass previously seen in the anal verge has resolved Palpation (GI): Soft to palpation, Tenderness to palpation present (GI) and no guarding Neuro: General: patient oriented x3 Results Labs 02/03/25 06:10 02/03/25 06:10 Labs: Abnormal lab results 02/01/25 02/01/25 02/02/25 Range/Units 15:50 18:54 05:28 WBC 10.9 H (4.8-10.8) X10*3/uL RBC 4.16 L (4.20-5.50) X10*6/uL MPV 8.5 L 9.0 L (9.4-12.3) fL Immature Gran % (Auto) 0.5 H 0.6 H (0.0-0.4) % Neut % (Auto) 81.9 H 76.6 H (45-73) % Lymph % (Auto) 6.5 L 9.0 L (20-40) % Lymph # (Auto) 0.7 L 0.9 L (1.2-4.9) X10*3/uL Abs Immat Gran (auto) 0.05 H 0.06 H (0.00-0.03) X10*3/uL Absolute Neuts (auto) 9.0 H (2.0-8.3) x10*3/uL BUN 18 H (9-16) mg/dL Albumin 3.3 L (3.5-5.0) g/dL Lipase 5 L (8-78) U/L TSH 6.99 H (0.32-4.0) uIU/mL Ur Specific [place] >= 1.030 H (1.005-1.025) Urine Blood Small (1+) H (Negative) Urine Nitrite Positive H (Negative) Ur Leukocyte Esterase Large (3+) H (Negative) Urine RBC 3-5 H (0-2) /HPF Urine WBC >50 H (0-5) /HPF Short CBC 02/01/25 02/02/25 Range/Units 15:50 05:28 WBC 10.9 H 9.4 (4.8-10.8) X10*3/uL Hgb 12.5 12.3 (12.0-16.0) g/dl Hct 39.8 39.0 (37.0-47.0) % Plt Count 262 211 (160-400) X10*3/uL BMP 02/01/25 02/02/25 15:50 05:28 Sodium 136 135 Potassium 4.0 4.0 Chloride 101 102 Carbon Dioxide 27 23 BUN 18 H 11 Creatinine 0.96 0.85 Calcium 9.5 D 9.0 Liver Function 02/01/25 Range/Units 15:50 Total Bilirubin 0.5 (0.0-1.0) mg/dL Direct Bilirubin 0.2 (0.0-0.5) mg/dL AST 17 (5-31) U/L ALT 7 (0-31) U/L Alkaline Phosphatase 107 (39-117) U/L Albumin 3.3 L (3.5-5.0) g/dL Urine 02/01/25 Range/Units 18:54 Urine Color Yellow Urine Appearance Cloudy Urine pH 7.0 (5.0-9.0) Ur Specific [place] >= 1.030 H (1.005-1.025) Urine Protein Trace (Neg-Trace) mg/dL Urine Glucose (UA) Negative (Negative) mg/dL Imaging Abdomen CT scan report/results: report reviewed and image reviewed CT scan - pelvis: report reviewed and image reviewed Additional studies: IMPRESSION: 1. Severe rectosigmoid wall thickening, suggesting proctocolitis. 2. Age indeterminate superior endplate compression deformities of the L3 and L4 vertebral bodies, new when compared to 10/29/2024. 3. Circumferential bladder wall thickening, correlate with urinalysis for cystitis. Assessment and Plan (1) Proctocolitis: Status: Acute She has had significant diarrhea for the past 2 weeks. I have reviewed her CAT scan and this shows thickening of the sigmoid as well as the proximal rectum consistent with proctocolitis I agree with working her up for etiology including for C diff . She also is being treated now for a urinary tract infection. Abdomen is soft and benign although she does have tenderness on the left lower quadrant She should be adequately hydrated. I will follow along while she is in the hospital. Procedures Date of Service Date of Service: 02/03/25
[2025-02-02 10:12] LABS: E. coli EAEC Not Detected (Not Detect.); E. coli EPEC Not Detected (Not Detect.); E. coli ETEC Not Detected (Not Detect.); E. coli STEC Not Detected (Not Detect.); Shigella sp./EIEC Not Detected (Not Detect.)
[2025-02-02] MEDS: Lactated Ringers 1,000 ML 75 ML IVCONT (14:08)
--- NOTE | 2025-02-02 14:48 | MHC.CM.PN ---
IMM delivered. Patient lives in a duplex, shares one unit with a son and another son lives upstairs. Reports she is independent w/ dressing/bathing. Ambulates w/ a walker. Uses a w/c in the community. No services. Previously used [facility] after a stay at [facility] earlier this year. PCP Kala Lundberg MD Reports HCP is her daughter, Norma. Copy requested. DP: Says she feels weak and her goal is STR at [facility] via BLS. Will need PT eval. Also agreeable to home w/ [facility] services. Son can transport home. [facility]. CM will continue to follow.
--- NOTE | 2025-02-02 17:07 | P.PNIM_ITS ---
Subjective Subjective Date of Service: 02/02/25 Interval History: Feeling slightly better LLQ pain intermittent Some diarrhea and nausea Endorses polyuria but no dysuria Has been able to tolerate some clear liquids Review of Systems Review of Systems: Yes all other systems are reviewed and are negative Physical Exam 2 Exam: Exam: General: AOx3, no acute distress Resp: CTA bilaterally CVS: S1, S2, RRR GI: +BS, soft, no distention, LLQ tenderness Skin: Warm, dry Neuro: Cranial nerves II-XII grossly intact bilaterally. Motor grossly intact bilaterally Extremities: No edema Psych: Appropriate affect Vital Signs: Vital Signs: Last Vital Signs Temp 97.7 F 02/02/25 16:00 Pulse 80 02/02/25 16:00 Resp 18 02/02/25 16:00 BP 133/63 02/02/25 16:00 Pulse Ox 97 02/02/25 16:00 O2 Del Method Room Air 02/02/25 16:00 BMI result Body Mass Index 20.0 Objective Data Active Medications Acetaminophen (Acetaminophen 325 Mg Tablet) 650 mg PO Q6H PRN PRN Reason: Pain, Mild 1-3,fever,headache Last Admin: 02/01/25 23:31 Dose: 650 mg Documented By: ANJEL Apixaban (Apixaban 5 Mg Tablet) 5 mg PO BID [facility] Last Admin: 02/02/25 08:39 Dose: 5 mg Documented By: REZA Artificial Tears (Artificial Tears 15 Ml Drops) 2 drop EYE-BOTH Q4H PRN PRN Reason: Dry Eyes Calcium Carbonate (Calcium Carbonate 750 Mg Tab.Chew) 750 mg PO Q4H PRN PRN Reason: Heartburn Diltiazem HCl (Diltiazem Hcl Cd 240 Mg Cap.Er.Deg) 240 mg PO DAILY [facility]; Protocol Last Admin: 02/02/25 08:39 Dose: 240 mg Documented By: REZA Metronidazole (Flagyl) 500 mg in 100 mls @ 100 mls/hr IV Q8H [facility] Last Infusion: 02/02/25 13:04 Dose: Infused Documented By: REZA Levofloxacin (Levaquin) 750 mg in 150 mls @ 100 mls/hr IV Q48H [facility] Lactated Ringer's (Lr) 1,000 mls @ 75 mls/hr IVCONT .[id number] [facility] Last Admin: 02/02/25 14:08 Dose: 75 mls/hr Documented By: REZA Levothyroxine Sodium (Levothyroxine Sodium 75 Mcg Tablet) 75 mcg PO DAILY@629 [facility] Last Admin: 02/02/25 05:28 Dose: 75 mcg Documented By: RUBY Magnesium Hydroxide (Milk Of Magnesia 30 Ml Oral.Susp) 30 ml PO DAILY PRN PRN Reason: Constipation Melatonin (Melatonin 3 Mg Tablet) 6 mg PO BEDTIME PRN PRN Reason: Insomnia Last Admin: 02/01/25 23:31 Dose: 6 mg Documented By: ANJEL Omeprazole (Omeprazole 20 Mg Capsule.Dr) 20 mg PO DAILY@629 [facility] Last Admin: 02/02/25 05:28 Dose: 20 mg Documented By: RUBY Ondansetron HCl (Ondansetron Hcl 4 Mg/2 Ml Vial) 4 mg IVPUSH Q8H PRN PRN Reason: Nausea and Vomiting Oxycodone HCl (Oxycodone Hcl Immed Release 5 Mg Tablet) 5 mg PO Q6H PRN PRN Reason: Pain, Severe (Pain Scale 7-10) Sodium Chloride (0.9 % Sodium Chloride Flush 3 Ml Syringe) 3 ml IVFLUSH QSHIFT [facility] Last Admin: 02/02/25 14:50 Dose: Not Given Documented By: REZA Non-Admin Reason: IV Running Tramadol HCl (Tramadol Hcl 50 Mg Tablet) 50 mg PO Q8H PRN PRN Reason: Pain, Moderate(Pain Scale 4-6) Labs 02/02/25 05:28 02/02/25 05:28 Labs: Laboratory Results - last 24 hr 02/01/25 02/01/25 02/02/25 18:54 19:26 01:07 MCV MCH MCHC RDW Plt Count MPV Immature Gran % (Auto) Neut % (Auto) Lymph % (Auto) Miller % (Auto) Eos % (Auto) Baso % (Auto) Lymph # (Auto) Miller # (Auto) Eos # (Auto) Baso # (Auto) Abs Immat Gran (auto) Absolute Neuts (auto) Absolute Nucleated RBC Nucleated RBC % (auto) Anion Gap Estim Creat Clear Calc Estimated GFR Random Glucose Lactic Acid 1.4 Calcium TSH Free T4 Urine Color Yellow Urine Appearance Cloudy Urine pH 7.0 Ur Specific [place] >= 1.030 H Urine Protein Trace Urine Glucose (UA) Negative Urine Ketones 15 Urine Blood Small (1+) H Urine Nitrite Positive H Ur Leukocyte Esterase Large (3+) H Urine RBC 3-5 H Urine WBC >50 H Ur Squamous Epith Cells 0-2 Urine Bacteria 4+ Hyaline Casts 3-5 Stl C. cayetanensis PCR Not Detected Stool Rotavirus A PCR Not Detected Stl Adenov F 40/ PCR Not Detected Stool Astrovirus (PCR) Not Detected Stool Campylobacter PCR Not Detected Stool Cryptosporidium PCR Not Detected Stl Sh Tox Pr E STEC PCR Not Detected Stool E coli O157 PCR Not applicable Stl Enterotoxigenic E PCR Not Detected Stool EPEC (PCR) Not Detected Stool EAEC (PCR) Not Detected Stl E. histolytica PCR Not Detected Stool Giardia Lamblia PCR Not Detected Stl P. shigelloides PCR Not Detected Stool Salmonella PCR Not Detected Stool Sapovirus (PCR) Not Detected Stl Shigella/EIEC PCR Not Detected St Y.enterocolitica PCR Not Detected Stool Vibrio (PCR) Not Detected Stl Vibrio cholerae PCR Not Detected Stl Norovirus GI/GII PCR Not Detected C. difficile Tox B Gene NEGATIVE 02/02/25 05:28 MCV 93.8 MCH 29.6 MCHC 31.5 RDW 14.3 Plt Count 211 MPV 9.0 L Immature Gran % (Auto) 0.6 H Neut % (Auto) 76.6 H Lymph % (Auto) 9.0 L Miller % (Auto) 10.3 Eos % (Auto) 2.5 Baso % (Auto) 1.0 Lymph # (Auto) 0.9 L Miller # (Auto) 1.0 Eos # (Auto) 0.2 Baso # (Auto) 0.1 Abs Immat Gran (auto) 0.06 H Absolute Neuts (auto) 7.2 Absolute Nucleated RBC 0.000 Nucleated RBC % (auto) 0.0 Anion Gap 14 Estim Creat Clear Calc 46.8 Estimated GFR > 60 Random Glucose 89 Lactic Acid Calcium 9.0 TSH 6.99 H Free T4 1.32 Urine Color Urine Appearance Urine pH Ur Specific [place] Urine Protein Urine Glucose (UA) Urine Ketones Urine Blood Urine Nitrite Ur Leukocyte Esterase Urine RBC Urine WBC Ur Squamous Epith Cells Urine Bacteria Hyaline Casts Stl C. cayetanensis PCR Stool Rotavirus A PCR Stl Adenov F 40/41 PCR Stool Astrovirus (PCR) Stool Campylobacter PCR Stool Cryptosporidium PCR Stl Sh Tox Pr E STEC PCR Stool E coli O157 PCR Stl Enterotoxigenic E PCR Stool EPEC (PCR) Stool EAEC (PCR) Stl E. histolytica PCR Stool Giardia Lamblia PCR Stl P. shigelloides PCR Stool Salmonella PCR Stool Sapovirus (PCR) Stl Shigella/EIEC PCR St Y.enterocolitica PCR Stool Vibrio (PCR) Stl Vibrio cholerae PCR Stl Norovirus GI/GII PCR C. difficile Tox B Gene Microbiology Microbiology Results: Microbiology 02/01/25 19:17 Urine Culture - Preliminary Urine clean catch - Clean Catch Midstream Gram negative camille Assessment and Plan (1) Proctocolitis: Status: Acute Plan Patient is an 79-year-old female with a past medical history significant for Crohn's disease, history anal cancer s/p radiation and chemotherapy last treatment in August, diverticulosis, hypothyroid, paroxysmal AFib on Eliquis, hypothyroidism and mild COPD, who presented to the ED due to 2 weeks of left lower quadrant pain with significant diarrhea, 15-20 times per day. Admission for acute procto colitis and UTI Proctocolitis on CT - general surgery following, recs: Levaquin and Flagyl - IV fluids - stool studies negative - Clear liquid diet for now, advance as tolerated Acute UTI - Levaquin as above Hypothyroid - levothyroxine Paroxysmal AFib - Eliquis, diltiazem Mild COPD, no acute exacerbation - no home meds CKD 3, at baseline Full code VTE prophylaxis: Eliquis Pt requires continued hospitalization for treatment further evaluation of acute proctocolitis and UTI with IV antibiotics, symptomatic treatment with IV antibiotics and analgesics, and slow advancement of diet. Quality Stroke Does the patient have a stroke diagnosis?: No VTE Prior VTE?: No VTE Risk Level:: Medical - moderate - high VTE Device Contraindication: Treatment Not Indicated VTE Drug Contraindication: N/A - Med Ordered
[2025-02-03] MEDS: metroNIDAZOLE/NS 500 MG/100 ML PIGGYBACK 100 MG IV ×3 (03:46→20:49)
[2025-02-03] MEDS: Lactated Ringers 1,000 ML 75 ML IVCONT (03:47)
[2025-02-03 04:00] VITALS: BP 135/60; PULSE 73; RESP 16; TEMP 36; O2SAT 95
[2025-02-03 06:33] LABS: MANUAL DIFF FLAG NO
[2025-02-03 06:35] LABS: Hematocrit 36.6 % (37.0-47.0); Hemoglobin 11.6 g/dl (12.0-16.0); Imm Gran Abs Auto 0.05 X10*3/uL (0.00-0.03); Imm Gran Pct Auto 0.5 % (0.0-0.4); Lymphocytes Absolute Auto 0.5 X10*3/uL (1.2-4.9); Mean Corpuscular HGB Conc 31.7 g/dl (31.0-35.0); Mean Corpuscular Hemoglobin 29.7 pg (27.0-33.0); Mean Corpuscular Volume 93.6 fL (80.0-98.0); NRBC Abs Auto 0.000 X10*3/uL (0.0-0.012); NRBC Pct Auto 0.0 /100WBC (0.0-0.2); Platelet Count 195 X10*3/uL (160-400); Red Blood Count 3.91 X10*6/uL (4.20-5.50); White Blood Count 9.5 X10*3/uL (4.8-10.8)
[2025-02-03 06:48] LABS: Anion Gap 13 (12-20); Blood Urea Nitrogen 8 mg/dL (9-16); Calcium 8.5 mg/dL (8.4-10.2); Carbon Dioxide 22 mmol/L (22-29); Chloride 104 mmol/L (96-108); Creatinine Clr Calc Pharmacy 48.6; Estimated Glomerular Filt Rate > 60; Potassium 3.7 mmol/L (3.3-5.1); Sodium 135 mmol/L (135-145)
[2025-02-03 08:00] VITALS: BP 133/68; PULSE 87; RESP 16; TEMP 36.3; O2SAT 96
[2025-02-03] MEDS: dilTIAZem HCL CD 240 MG CAP.ER.DEG PO (08:11)
--- NOTE | 2025-02-03 09:48 | PM.PNGS ---
Subjective Subjective Date of Service: 02/03/25 Interval history: Says she feels better this morning Diarrhea has improved although still present Abdominal pain also much improved Physical Exam Vital Signs: Vital Signs: Last Vital Signs Temp 97.3 F 02/03/25 08:00 Pulse 87 02/03/25 08:00 Resp 16 02/03/25 08:00 BP 133/68 02/03/25 08:00 Pulse Ox 96 02/03/25 08:00 O2 Del Method Room Air 02/03/25 08:00 BMI result Body Mass Index 20.0 Const: General: comfortable and no acute distress Resp: Effort & Inspection: normal respiratory effort Cardio: Rate: regular rate GI: Palpation (GI): Soft to palpation, not firm, Tenderness to palpation present (GI) (Mild tenderness on lower abdomen) and no guarding Objective Data Active Medications Acetaminophen (Acetaminophen 325 Mg Tablet) 650 mg PO Q6H PRN PRN Reason: Pain, Mild 1-3,fever,headache Last Admin: 02/02/25 20:23 Dose: 650 mg Documented By: TAQUERIA Apixaban (Apixaban 5 Mg Tablet) 5 mg PO BID [facility] Last Admin: 02/03/25 08:11 Dose: 5 mg Documented By: REZA Artificial Tears (Artificial Tears 15 Ml Drops) 2 drop EYE-BOTH Q4H PRN PRN Reason: Dry Eyes Calcium Carbonate (Calcium Carbonate 750 Mg Tab.Chew) 750 mg PO Q4H PRN PRN Reason: Heartburn Diltiazem HCl (Diltiazem Hcl Cd 240 Mg Cap.Er.Deg) 240 mg PO DAILY [facility]; Protocol Last Admin: 02/03/25 08:11 Dose: 240 mg Documented By: REZA Metronidazole (Flagyl) 500 mg in 100 mls @ 100 mls/hr IV Q8H [facility] Last Infusion: 02/03/25 04:56 Dose: Infused Documented By: TAQUERIA Levofloxacin (Levaquin) 750 mg in 150 mls @ 100 mls/hr IV Q48H [facility] Lactated Ringer's (Lr) 1,000 mls @ 75 mls/hr IVCONT .[id number] [facility] Last Admin: 02/03/25 03:47 Dose: 75 mls/hr Documented By: TAQUERIA Levothyroxine Sodium (Levothyroxine Sodium 75 Mcg Tablet) 75 mcg PO DAILY@629 [facility] Last Admin: 02/03/25 05:42 Dose: 75 mcg Documented By: TAQUERIA Magnesium Hydroxide (Milk Of Magnesia 30 Ml Oral.Susp) 30 ml PO DAILY PRN PRN Reason: Constipation Melatonin (Melatonin 3 Mg Tablet) 6 mg PO BEDTIME PRN PRN Reason: Insomnia Last Admin: 02/02/25 20:24 Dose: 6 mg Documented By: TAQUERIA Omeprazole (Omeprazole 20 Mg Capsule.Dr) 20 mg PO DAILY@629 [facility] Last Admin: 02/03/25 05:42 Dose: 20 mg Documented By: TAQUERIA Ondansetron HCl (Ondansetron Hcl 4 Mg/2 Ml Vial) 4 mg IVPUSH Q8H PRN PRN Reason: Nausea and Vomiting Oxycodone HCl (Oxycodone Hcl Immed Release 5 Mg Tablet) 5 mg PO Q6H PRN PRN Reason: Pain, Severe (Pain Scale 7-10) Sodium Chloride (0.9 % Sodium Chloride Flush 3 Ml Syringe) 3 ml IVFLUSH QSHIFT [facility] Last Admin: 02/03/25 07:36 Dose: Not Given Documented By: REZA Non-Admin Reason: IV Running Tramadol HCl (Tramadol Hcl 50 Mg Tablet) 50 mg PO Q8H PRN PRN Reason: Pain, Moderate(Pain Scale 4-6) Labs 02/03/25 06:10 02/03/25 06:10 Labs: Laboratory Results - last 24 hr 02/02/25 02/03/25 01:07 06:10 MCV 93.6 MCH 29.7 MCHC 31.7 RDW 14.3 Plt Count 195 MPV 8.7 L Immature Gran % (Auto) 0.5 H Neut % (Auto) 82.9 H Lymph % (Auto) 5.5 L [place] % (Auto) 8.0 Eos % (Auto) 2.6 Baso % (Auto) 0.5 Lymph # (Auto) 0.5 L [place] # (Auto) 0.8 Eos # (Auto) 0.3 Baso # (Auto) 0.1 Abs Immat Gran (auto) 0.05 H Absolute Neuts (auto) 7.9 Absolute Nucleated RBC 0.000 Nucleated RBC % (auto) 0.0 Anion Gap 13 Estim Creat Clear Calc 48.6 Estimated GFR > 60 Random Glucose 106 Calcium 8.5 Stl C. cayetanensis PCR Not Detected Stool Rotavirus A PCR Not Detected Stl Adenov F 40/41 PCR Not Detected Stool Astrovirus (PCR) Not Detected Stool Campylobacter PCR Not Detected Stool Cryptosporidium PCR Not Detected Stl Sh Tox Pr E STEC PCR Not Detected Stool E coli O157 PCR Not applicable Stl Enterotoxigenic E PCR Not Detected Stool EPEC (PCR) Not Detected Stool EAEC (PCR) Not Detected Stl E. histolytica PCR Not Detected Stool Giardia Lamblia PCR Not Detected Stl P. shigelloides PCR Not Detected Stool Salmonella PCR Not Detected Stool Sapovirus (PCR) Not Detected Stl Shigella/EIEC PCR Not Detected St Y.enterocolitica PCR Not Detected Stool Vibrio (PCR) Not Detected Stl Vibrio cholerae PCR Not Detected Stl Norovirus GI/GII PCR Not Detected Microbiology Microbiology Results: Microbiology 02/01/25 19:17 Urine Culture - Final Urine clean catch - Clean Catch Midstream Escherichia coli 02/01/25 19:36 Blood Culture - Preliminary Blood - Venous No growth after 24 hours. 02/01/25 19:26 Blood Culture - Preliminary Blood - Venous No growth after 24 hours. Procedures Date of Service Date of Service: 02/03/25 Progress Note: A&P Assessment and plan (1) Proctocolitis: Status: Acute Assessment and Plan: Much better with regards to abdominal pain and diarrhea Abdomen is soft and benign Stool studies negative C diff negative Etiology of proctocolitis uncertain but may be related to her previous radiation to the pelvis for anal cancer Okay to slowly advance diet as tolerated Clinically looks well I also reminded her to follow up with her oncologist with regards to her anal cancer Time Spent With Patient Time: Total time managing care of this patient today ____ minutes. Quality Stroke Does the patient have a stroke diagnosis?: No VTE Prior VTE?: No VTE Risk Level:: Medical - moderate - high VTE Device Contraindication: Treatment Not Indicated VTE Drug Contraindication: N/A - Med Ordered
--- NOTE | 2025-02-03 12:42 | P.PNIM_ITS ---
Subjective Subjective Date of Service: 02/03/25 Interval History: Pt attempted to eat solid breakfast this morning, but developed nausea, vomiting, and diarrhea after eating Nursing noticed pt had bright red blood per rectum on bed sheets; also with bowel movements and even while walking to the bathroom Still with LLQ abd pain, some bloating Denies lightheadedness or dizziness No SOB or difficulty breathing Denies chest pain Review of Systems Review of Systems: Yes all other systems are reviewed and are negative Physical Exam 2 Exam: Exam: General: AOx3, no acute distress Resp: CTA bilaterally CVS: S1, S2, RRR GI: +BS, soft, mild distention, LLQ tenderness Skin: Warm, dry Neuro: Cranial nerves II-XII grossly intact bilaterally. Motor grossly intact bilaterally Extremities: No edema Psych: Appropriate affect Vital Signs: Vital Signs: Last Vital Signs Temp 97.3 F 02/03/25 08:00 Pulse 87 02/03/25 08:00 Resp 16 02/03/25 08:00 BP 133/68 02/03/25 08:00 Pulse Ox 96 02/03/25 08:00 O2 Del Method Room Air 02/03/25 08:00 BMI result Body Mass Index 20.0 Objective Data Active Medications Acetaminophen (Acetaminophen 325 Mg Tablet) 650 mg PO Q6H PRN PRN Reason: Pain, Mild 1-3,fever,headache Last Admin: 02/02/25 20:23 Dose: 650 mg Documented By: TAQUERIA Apixaban (Apixaban 5 Mg Tablet) 5 mg PO BID [facility] On Hold: 02/03/25 11:28 Last Admin: 02/03/25 08:11 Dose: 5 mg Documented By: REZA Artificial Tears (Artificial Tears 15 Ml Drops) 2 drop EYE-BOTH Q4H PRN PRN Reason: Dry Eyes Calcium Carbonate (Calcium Carbonate 750 Mg Tab.Chew) 750 mg PO Q4H PRN PRN Reason: Heartburn Diltiazem HCl (Diltiazem Hcl Cd 240 Mg Cap.Er.Deg) 240 mg PO DAILY [facility]; Protocol Last Admin: 02/03/25 08:11 Dose: 240 mg Documented By: REZA Metronidazole (Flagyl) 500 mg in 100 mls @ 100 mls/hr IV Q8H [facility] Last Admin: 02/03/25 11:25 Dose: 100 mls/hr Documented By: REZA Levofloxacin (Levaquin) 750 mg in 150 mls @ 100 mls/hr IV Q48H [facility] Lactated Ringer's (Lr) 1,000 mls @ 75 mls/hr IVCONT .[id number] [facility] Last Admin: 02/03/25 03:47 Dose: 75 mls/hr Documented By: TAQUERIA Levothyroxine Sodium (Levothyroxine Sodium 75 Mcg Tablet) 75 mcg PO DAILY@0630 [facility] Last Admin: 02/03/25 05:42 Dose: 75 mcg Documented By: TAQUERIA Magnesium Hydroxide (Milk Of Magnesia 30 Ml Oral.Susp) 30 ml PO DAILY PRN PRN Reason: Constipation Melatonin (Melatonin 3 Mg Tablet) 6 mg PO BEDTIME PRN PRN Reason: Insomnia Last Admin: 02/02/25 20:24 Dose: 6 mg Documented By: TAQUERIA Omeprazole (Omeprazole 20 Mg Capsule.Dr) 20 mg PO DAILY@06 [facility] Last Admin: 02/03/25 05:42 Dose: 20 mg Documented By: TAQUERIA Ondansetron HCl (Ondansetron Hcl 4 Mg/2 Ml Vial) 4 mg IVPUSH Q8H PRN PRN Reason: Nausea and Vomiting Last Admin: 02/03/25 11:16 Dose: 4 mg Documented By: REZA Oxycodone HCl (Oxycodone Hcl Immed Release 5 Mg Tablet) 5 mg PO Q6H PRN PRN Reason: Pain, Severe (Pain Scale 7-10) Sodium Chloride (0.9 % Sodium Chloride Flush 3 Ml Syringe) 3 ml IVFLUSH QSHIFT [facility] Last Admin: 02/03/25 07:36 Dose: Not Given Documented By: REZA Non-Admin Reason: IV Running Tramadol HCl (Tramadol Hcl 50 Mg Tablet) 50 mg PO Q8H PRN PRN Reason: Pain, Moderate(Pain Scale 4-6) Labs 02/03/25 06:10 02/03/25 06:10 Labs: Laboratory Results - last 24 hr 02/03/25 06:10 MCV 93.6 MCH 29.7 MCHC 31.7 RDW 14.3 Plt Count 195 MPV 8.7 L Immature Gran % (Auto) 0.5 H Neut % (Auto) 82.9 H Lymph % (Auto) 5.5 L [place] % (Auto) 8.0 Eos % (Auto) 2.6 Baso % (Auto) 0.5 Lymph # (Auto) 0.5 L [place] # (Auto) 0.8 Eos # (Auto) 0.3 Baso # (Auto) 0.1 Abs Immat Gran (auto) 0.05 H Absolute Neuts (auto) 7.9 Absolute Nucleated RBC 0.000 Nucleated RBC % (auto) 0.0 Anion Gap 13 Estim Creat Clear Calc 48.6 Estimated GFR > 60 Random Glucose 106 Calcium 8.5 Microbiology Microbiology Results: Microbiology 02/01/25 19:17 Urine Culture - Final Urine clean catch - Clean Catch Midstream Escherichia coli 02/01/25 19:36 Blood Culture - Preliminary Blood - Venous No growth after 24 hours. 02/01/25 19:26 Blood Culture - Preliminary Blood - Venous No growth after 24 hours. Assessment and Plan (1) Proctocolitis: Status: Acute Plan Patient is an 79-year-old female with a past medical history significant for Crohn's disease, history anal cancer s/p radiation and chemotherapy last treatment in August, diverticulosis, hypothyroid, paroxysmal AFib on Eliquis, hypothyroidism and mild COPD, who presented to the ED due to 2 weeks of left lower quadrant pain with significant diarrhea, 15-20 times per day. Admission for acute procto colitis and UTI Proctocolitis on CT - pain with chronic diarrhea since August, worse the past 2 weeks - CT showing severe rectosigmoid wall thickening suggesting of colitis - stool studies negative - general surgery following, recs: Levaquin and Flagyl - pt attempted solid diet today, pacemaker sensed N/V/D; reduced diet to full liquid, advance as tolerated - will get GI consult Acute UTI - Levaquin as above Hematochezia - bright red blood on bed sheets, while walking to the bathroom, and with bowel movements - in the setting of proctocolitis vs external hemorrhoids - slight drop in H&H today - hold Eliquis; consider whether to continue or not at discharge - monitor H&H Hypothyroid - TSH elevated but free T4 WNL - continue levothyroxine - will need outpatient follow up for repeat labs in 3-6 months Paroxysmal AFib - continue diltiazem - hold Eliquis due to hematochezia Mild COPD, no acute exacerbation - no home meds CKD 3, at baseline Full code VTE prophylaxis: Eliquis Pt requires continued hospitalization for treatment of acute proctocolitis and UTI with IV antibiotics, symptomatic treatment with IV analgesics, and slow advancement of diet. Quality Stroke Does the patient have a stroke diagnosis?: No VTE Prior VTE?: No VTE Risk Level:: Medical - moderate - high VTE Device Contraindication: Treatment Not Indicated VTE Drug Contraindication: N/A - Med Ordered
[2025-02-03 15:44] VITALS: BP 116/57; PULSE 82; RESP 12; TEMP 36.9; O2SAT 97
[2025-02-03 20:00] VITALS: BP 106/55; PULSE 86; RESP 18; TEMP 36.2; O2SAT 97
--- NOTE | 2025-02-03 22:47 | CONS_ITS ---
DATE OF SERVICE: 02/03/2025 REFERRING PHYSICIAN: ANTONETTE Sharma REASON FOR CONSULTATION: Proctocolitis and hematochezia. HISTORY: This is a pleasant 79-year-old woman followed by Dr. Chung, who was admitted to the hospital on February 01 after presenting to the emergency room with diarrhea upwards of 15 to 20 times per day. She has a history of Crohn disease and anal cancer with radiation and chemotherapy treated in August and since that time she said she has had diarrhea. There was no recent travel or antibiotic usage. She denies any ill contacts. She was evaluated in the emergency department with imaging studies and laboratory studies which are reviewed. CT scanning of the abdomen and pelvis is interpreted as showing rectosigmoid wall thickening suggestive of proctocolitis. Stool testing has been negative for any treatable infectious etiology. C diff was also negative. She last underwent sigmoidoscopy in October, which showed severe edema and inflammation with luminal narrowing in the sigmoid and moderate severe inflammation in the rectum with few superficial ulcers. Biopsies showed a severely active colitis. We reviewed this today. She did have a history of Campylobacter infection around the time. She does not recall being treated for Crohn disease in the past. She feels improved since starting on antibiotics. She did have some vomiting today after eating a full breakfast for the first time after being on clear liquids. PAST MEDICAL HISTORY: 1. Anal cancer with radiation and chemotherapy. 2. Atrial fibrillation. 3. Hypothyroidism. 4. Diverticulosis. 5. Colitis as above. 6. Urinary incontinence. 7. Chronic kidney disease. CURRENT MEDICATIONS: Her current medication list is reviewed in the chart. ALLERGIES: MULTIPLE ALLERGIES ARE REVIEWED. FAMILY HISTORY: This was reviewed with the patient and is noncontributory. SOCIAL HISTORY: There is no current tobacco, alcohol, or substance abuse. REVIEW OF SYSTEMS: SKIN: No pruritus. HEENT: Negative. CARDIOPULMONARY: No shortness of breath or chest pain. GASTROINTESTINAL: As above. GENITOURINARY: Negative. NEUROPSYCHIATRIC: Negative. PHYSICAL EXAMINATION: GENERAL: Shows a pleasant female, lying comfortably in bed. VITAL SIGNS: Reviewed in electronic medical record and are stable. SKIN: Anicteric. HEENT: Shows no scleral icterus. NECK: Without lymphadenopathy or thyromegaly. LUNGS: Clear. HEART: Shows a regular rate and rhythm. S1, S2. No murmur. ABDOMEN: Soft without focal masses or tenderness. Bowel sounds are present. She does have some mild tenderness to deep palpation in the left lower quadrant, but there is no guarding or rebound. EXTREMITIES: Without edema. LABORATORY DATA AND IMAGING STUDIES: Reviewed. IMPRESSION: Colitis. At this time, she appears to be improving with antibiotics. If she does not have continued improvement, I would recommend a trial of steroids. If symptoms persist, she could require repeat lower GI tract endoscopy, but I have not recommended at this time based on the findings of her last sigmoidoscopy from earlier this year. Thanks for asking me to see her. I will follow her in the hospital with you. MD JOSE FRANCISCO Hoffman/ALFONSO / [id number] MTDD
[2025-02-04] VITALS (7 sets, daily range): BP systolic 97–118; BP diastolic 49–62; PULSE 75–85; RESP 14–18; TEMP 36–36.9; O2SAT 92–98
[2025-02-04] MEDS: metroNIDAZOLE/NS 500 MG/100 ML PIGGYBACK 100 MG IV ×3 (04:18→19:47)
[2025-02-04 05:30] LABS: MANUAL DIFF FLAG NO
[2025-02-04 05:33] LABS: Hematocrit 33.9 % (37.0-47.0); Hemoglobin 10.6 g/dl (12.0-16.0); Imm Gran Abs Auto 0.07 X10*3/uL (0.00-0.03); Imm Gran Pct Auto 0.9 % (0.0-0.4); Lymphocytes Absolute Auto 0.6 X10*3/uL (1.2-4.9); Mean Corpuscular HGB Conc 31.3 g/dl (31.0-35.0); Mean Corpuscular Hemoglobin 29.4 pg (27.0-33.0); Mean Corpuscular Volume 93.9 fL (80.0-98.0); NRBC Abs Auto 0.000 X10*3/uL (0.0-0.012); NRBC Pct Auto 0.0 /100WBC (0.0-0.2); Platelet Count 179 X10*3/uL (160-400); Red Blood Count 3.61 X10*6/uL (4.20-5.50); White Blood Count 7.9 X10*3/uL (4.8-10.8)
[2025-02-04 05:44] LABS: Anion Gap 12 (12-20); Blood Urea Nitrogen 8 mg/dL (9-16); Calcium 8.5 mg/dL (8.4-10.2); Carbon Dioxide 25 mmol/L (22-29); Chloride 104 mmol/L (96-108); Creatinine Clr Calc Pharmacy 45.8; Estimated Glomerular Filt Rate > 60; Potassium 3.8 mmol/L (3.3-5.1); Sodium 137 mmol/L (135-145)
[2025-02-04] MEDS: dilTIAZem HCL CD 240 MG CAP.ER.DEG PO (09:23)
[2025-02-04] MEDS: 0.9 % Sodium Chloride Flush 3 ML SYRINGE IVFLUSH ×3 (09:24→19:47)
--- NOTE | 2025-02-04 09:44 | P.PNIM_ITS ---
Subjective Subjective Date of Service: 02/04/25 Interval History: Feels much better overall Tolerated full liquid diet last night, anticipating breakfast today. Has frequent urination, without dysuria. No fevers chills or rigors Review of Systems Review of Systems: Yes all other systems are reviewed and are negative Physical Exam 2 Exam: Exam: General: A&O x3, oriented to time place person and situation, comfortable, no pain Cardiac: S1, S2 auscultated with no S3/4, no MRG. Well perfused. Respiratory: Normal breath sounds auscultated throughout all lung zones, without wheezing, rales. Normal rate. GI/ : No abdominal pain on palpation, no masses or distentions. MSK: Normal ambulation without pain at bony prominences or musculature Neurological: Normal neurological examination on overview, without obvious CN II-XII abnormalities. Vital Signs: Vital Signs: Last Vital Signs Temp 97.2 F 02/04/25 07:53 Pulse 85 02/04/25 09:23 Resp 18 02/04/25 07:53 BP 115/57 L 02/04/25 09:23 Pulse Ox 98 02/04/25 07:53 O2 Del Method Room Air 02/04/25 07:53 BMI result Body Mass Index 20.0 Objective Data Active Medications Acetaminophen (Acetaminophen 325 Mg Tablet) 650 mg PO Q6H PRN PRN Reason: Pain, Mild 1-3,fever,headache Last Admin: 02/03/25 20:51 Dose: 650 mg Documented By: MINAL Apixaban (Apixaban 5 Mg Tablet) 5 mg PO BID [facility] On Hold: 02/03/25 11:28 Last Admin: 02/03/25 08:11 Dose: 5 mg Documented By: REZA Artificial Tears (Artificial Tears 15 Ml Drops) 2 drop EYE-BOTH Q4H PRN PRN Reason: Dry Eyes Calcium Carbonate (Calcium Carbonate 750 Mg Tab.Chew) 750 mg PO Q4H PRN PRN Reason: Heartburn Diltiazem HCl (Diltiazem Hcl Cd 240 Mg Cap.Er.Deg) 240 mg PO DAILY [facility]; Protocol Last Admin: 02/04/25 09:23 Dose: 240 mg Documented By: COLBURGuillermina Metronidazole (Flagyl) 500 mg in 100 mls @ 100 mls/hr IV Q8H [facility] Last Infusion: 02/04/25 05:29 Dose: Infused Documented By: MINAL Levofloxacin (Levaquin) 750 mg in 150 mls @ 100 mls/hr IV Q48H [facility] Last Infusion: 02/03/25 20:49 Dose: Infused Documented By: MINAL Levothyroxine Sodium (Levothyroxine Sodium 75 Mcg Tablet) 75 mcg PO DAILY@0630 [facility] Last Admin: 02/04/25 06:23 Dose: 75 mcg Documented By: MINAL Magnesium Hydroxide (Milk Of Magnesia 30 Ml Oral.Susp) 30 ml PO DAILY PRN PRN Reason: Constipation Melatonin (Melatonin 3 Mg Tablet) 6 mg PO BEDTIME PRN PRN Reason: Insomnia Last Admin: 02/03/25 20:51 Dose: 6 mg Documented By: MINAL Omeprazole (Omeprazole 20 Mg Capsule.Dr) 20 mg PO DAILY@0630 [facility] Last Admin: 02/04/25 06:23 Dose: 20 mg Documented By: MINAL Ondansetron HCl (Ondansetron Hcl 4 Mg/2 Ml Vial) 4 mg IVPUSH Q8H PRN PRN Reason: Nausea and Vomiting Last Admin: 02/03/25 11:16 Dose: 4 mg Documented By: GRAZKELVIN Oxycodone HCl (Oxycodone Hcl Immed Release 5 Mg Tablet) 5 mg PO Q6H PRN PRN Reason: Pain, Severe (Pain Scale 7-10) Sodium Chloride (0.9 % Sodium Chloride Flush 3 Ml Syringe) [facility] Last Admin: 02/04/25 09:24 Dose: 3 ml Documented By: COLBAUDILIO Tramadol HCl (Tramadol Hcl 50 Mg Tablet) 50 mg PO Q8H PRN PRN Reason: Pain, Moderate(Pain Scale 4-6) Labs 02/04/25 05:24 02/04/25 05:24 Labs: Laboratory Results - last 24 hr 02/04/25 05:24 MCV 93.9 MCH 29.4 MCHC 31.3 RDW 14.4 Plt Count 179 MPV 8.4 L Immature Gran % (Auto) 0.9 H Neut % (Auto) 77.9 H Lymph % (Auto) 7.8 L [place] % (Auto) 9.4 Eos % (Auto) 3.5 Baso % (Auto) 0.5 Lymph # (Auto) 0.6 L [place] # (Auto) 0.7 Eos # (Auto) 0.3 Baso # (Auto) 0.0 Abs Immat Gran (auto) 0.07 H Absolute Neuts (auto) 6.2 Absolute Nucleated RBC 0.000 Nucleated RBC % (auto) 0.0 Anion Gap 12 Estim Creat Clear Calc 45.8 Estimated GFR > 60 Random Glucose 84 Calcium 8.5 Microbiology Microbiology Results: Microbiology 02/01/25 19:36 Blood Culture - Preliminary Blood - Venous No growth after 48 hours. 02/01/25 19:26 Blood Culture - Preliminary Blood - Venous No growth after 48 hours. 02/01/25 19:17 Urine Culture - Final Urine clean catch - Clean Catch Midstream Escherichia coli Assessment and Plan (1) Current use of retirement anticoagulation: Status: Acute (2) Acquired hypothyroidism: Status: Acute (3) Multinodular thyroid: Status: Acute (4) Proctocolitis: Status: Acute (5) Bloody diarrhea: Status: Acute (6) Colitis: Status: Acute (7) Abdominal pain: Status: Acute (8) Chronic kidney disease, stage 3: Status: Acute (9) Mixed stress and urge urinary incontinence: Status: Acute (10) Fall at home: Status: Acute (11) COPD (chronic obstructive pulmonary disease): Status: Acute (12) Poor appetite: Status: Acute (13) Weakness: Status: Acute Plan 79-year-old female with a past medical history significant for Crohn's disease, history anal cancer s/p radiation and chemotherapy last treatment in August, diverticulosis, hypothyroid, paroxysmal AFib on Eliquis, hypothyroidism and mild COPD, who presented to the ED due to 2 weeks of left lower quadrant pain with significant diarrhea; 15-20 times per day, admitted with acute proctocolitis and acute uncomplicated urinary tract infection. Acute proctocolitis Hematochezia External hemorrhoids Suffering with generalized abdominal pain and chronic diarrhea that had worsened for the past 2 weeks prior to admission. Stool studies-ve. Hematochezia possibly secondary to proctocolitis vs hemorrhoids Hgb stable CT abdomen pelvis revealing severe rectosigmoid wall thickening suggestive of colitis. Physical examination unremarkable currently Patient's appetite has improved. PLAN - gastroenterology recommendations greatly appreciated - advance diet from full liquid to regular - continue levofloxacin - continue metronidazole - monitor intake/output, stooling - resume Apixaban Acute uncomplicated urinary tract infection - Continue levofloxacin - continue metronidazole CHRONIC MEDICAL ISSUES - Paroxysmal atrial fibrillation: Continue diltiazem, continue Apixaban - Mild COPD without exacerbation: No acute issues/ no home meds - CKD stage IIIA: At baseline creatinine - Acquired hypothyroidism: Continue levothyroxine QUALITY METRICS - VTE: Apixaban - CODE STATUS: Full code - DIET: Advance to regular Total time managing care of this patient today: 35 minutes. Quality Stroke Does the patient have a stroke diagnosis?: No VTE Prior VTE?: No VTE Risk Level:: Medical - moderate - high VTE Device Contraindication: Treatment Not Indicated VTE Drug Contraindication: N/A - Med Ordered
--- NOTE | 2025-02-04 14:21 | PC.NURSE ---
Patient having scant amount of mucous, pink tinged output from rectum. Rectal area appears red and sore, barrier cream applied after christiano care.
[2025-02-05 04:00] VITALS: BP 104/51; PULSE 88; RESP 18; TEMP 36.4; O2SAT 92
[2025-02-05] MEDS: metroNIDAZOLE/NS 500 MG/100 ML PIGGYBACK 100 MG IV ×3 (04:33→19:26)
[2025-02-05 07:24] VITALS: BP 123/55; PULSE 84; RESP 16; TEMP 36.7; O2SAT 95
[2025-02-05 08:39] VITALS: BP 123/55; PULSE 84
[2025-02-05] MEDS: dilTIAZem HCL CD 240 MG CAP.ER.DEG PO (08:39)
[2025-02-05] MEDS: 0.9 % Sodium Chloride Flush 3 ML SYRINGE IVFLUSH ×3 (08:40→20:36)
--- NOTE | 2025-02-05 09:35 | P.PNGS_ITS ---
Subjective Subjective Date of Service: 02/05/25 Physical Exam 2 Vital Signs: Vital Signs: Last Vital Signs Temp 98.1 F 02/05/25 07:24 Pulse 84 02/05/25 08:39 Resp 16 02/05/25 07:24 BP 123/55 L 02/05/25 08:39 Pulse Ox 95 02/05/25 07:24 O2 Del Method Room Air 02/05/25 07:24 BMI result Body Mass Index 20.0 Const: General: comfortable and no acute distress Resp: Effort & Inspection: normal respiratory effort Cardio: Rate: regular rate GI: Palpation (GI): Soft to palpation, not firm, nontender and no guarding Objective Data Active Medications Acetaminophen (Acetaminophen 325 Mg Tablet) 650 mg PO Q6H PRN PRN Reason: Pain, Mild 1-3,fever,headache Last Admin: 02/03/25 20:51 Dose: 650 mg Documented By: MINAL Apixaban (Apixaban 5 Mg Tablet) 5 mg PO BID REPLACED BY [facility] Last Admin: 02/05/25 08:40 Dose: 5 mg Documented By: KALA Artificial Tears (Artificial Tears 15 Ml Drops) 2 drop EYE-BOTH Q4H PRN PRN Reason: Dry Eyes Calcium Carbonate (Calcium Carbonate 750 Mg Tab.Chew) 750 mg PO Q4H PRN PRN Reason: Heartburn Diltiazem HCl (Diltiazem Hcl Cd 240 Mg Cap.Er.Deg) 240 mg PO DAILY REPLACED BY [facility]; Protocol Last Admin: 02/05/25 08:39 Dose: 240 mg Documented By: KALA Metronidazole (Flagyl) 500 mg in 100 mls @ 100 mls/hr IV Q8H REPLACED BY [facility] Last Infusion: 02/05/25 05:33 Dose: Infused Documented By: BLAIR Levofloxacin (Levaquin) 750 mg in 150 mls @ 100 mls/hr IV Q48H REPLACED BY [facility] Last Infusion: 02/03/25 20:49 Dose: Infused Documented By: MINAL Levothyroxine Sodium (Levothyroxine Sodium 75 Mcg Tablet) 75 mcg PO DAILY@0630 REPLACED BY [facility] Last Admin: 02/05/25 05:47 Dose: 75 mcg Documented By: BLAIR Magnesium Hydroxide (Milk Of Magnesia 30 Ml Oral.Susp) 30 ml PO DAILY PRN PRN Reason: Constipation Melatonin (Melatonin 3 Mg Tablet) 6 mg PO BEDTIME PRN PRN Reason: Insomnia Last Admin: 02/03/25 20:51 Dose: 6 mg Documented By: MINAL Omeprazole (Omeprazole 20 Mg Capsule.Dr) 20 mg PO DAILY@0630 [facility]PLACED [facility] Last Admin: 02/05/25 05:47 Dose: 20 mg Documented By: BLAIR Ondansetron HCl (Ondansetron Hcl 4 Mg/2 Ml Vial) 4 mg IVPUSH Q8H PRN PRN Reason: Nausea and Vomiting Last Admin: 02/03/25 11:16 Dose: 4 mg Documented By: REZA Oxycodone HCl (Oxycodone Hcl Immed Release 5 Mg Tablet) 5 mg PO Q6H PRN PRN Reason: Pain, Severe (Pain Scale 7-10) Sodium Chloride (0.9 % Sodium Chloride Flush 3 Ml Syringe) 3 ml IVFLUSH QSHIFT REPLACED BY [facility] Last Admin: 02/05/25 08:40 Dose: 3 ml Documented By: KALA Tramadol HCl (Tramadol Hcl 50 Mg Tablet) 50 mg PO Q8H PRN PRN Reason: Pain, Moderate(Pain Scale 4-6) Labs 02/04/25 05:24 02/04/25 05:24 Procedures Date of Service Date of Service: 02/05/25 Progress Note: A&P Assessment and plan (1) Proctocolitis: Status: Acute Assessment and Plan: Diarrhea improving Tolerating regular diet Abdomen is soft and benign Etiology of proctocolitis uncertain Stool studies have been negative Looks well Hemodynamically stable Time Spent With Patient Time: Total time managing care of this patient today ____ minutes. Quality Stroke Does the patient have a stroke diagnosis?: No VTE Prior VTE?: No VTE Risk Level:: Medical - moderate - high VTE Device Contraindication: Treatment Not Indicated VTE Drug Contraindication: N/A - Med Ordered
--- NOTE | 2025-02-05 11:21 | P.PNIM_ITS ---
Subjective Subjective Date of Service: 02/05/25 Interval History: Unable to tolerate regular diet yesterday. Transitioned to full liquid diet today. Continue to monitor-if patient is able to intake lunch, dinner and breakfast tomorrow, can be discharged. Review of Systems Review of Systems: Yes all other systems are reviewed and are negative Physical Exam 2 Exam: Exam: General: A&O x3, oriented to time place person and situation, comfortable, no pain Cardiac: S1, S2 auscultated with no S3/4, no MRG. Well perfused. Respiratory: Normal breath sounds auscultated throughout all lung zones, without wheezing, rales. Normal rate. GI/ : No abdominal pain on palpation, no masses or distentions. MSK: Normal ambulation without pain at bony prominences or musculature Neurological: Normal neurological examination on overview, without obvious CN II-XII abnormalities. Vital Signs: Vital Signs: Last Vital Signs Temp 98.1 F 02/05/25 07:24 Pulse 84 02/05/25 08:39 Resp 16 02/05/25 07:24 BP 123/55 L 02/05/25 08:39 Pulse Ox 95 02/05/25 07:24 O2 Del Method Room Air 02/05/25 07:24 BMI result Body Mass Index 20.0 Objective Data Active Medications Acetaminophen (Acetaminophen 325 Mg Tablet) 650 mg PO Q6H PRN PRN Reason: Pain, Mild 1-3,fever,headache Last Admin: 02/03/25 20:51 Dose: 650 mg Documented By: MINAL Apixaban (Apixaban 5 Mg Tablet) 5 mg PO BID [facility] Last Admin: 02/05/25 08:40 Dose: 5 mg Documented By: KALA Artificial Tears (Artificial Tears 15 Ml Drops) 2 drop EYE-BOTH Q4H PRN PRN Reason: Dry Eyes Calcium Carbonate (Calcium Carbonate 750 Mg Tab.Chew) 750 mg PO Q4H PRN PRN Reason: Heartburn Diltiazem HCl (Diltiazem Hcl Cd 240 Mg Cap.Er.Deg) 240 mg PO DAILY [facility]; Protocol Last Admin: 02/05/25 08:39 Dose: 240 mg Documented By: KALA Metronidazole (Flagyl) 500 mg in 100 mls @ 100 mls/hr IV Q8H [facility] Last Infusion: 02/05/25 05:33 Dose: Infused Documented By: BLAIR Levofloxacin (Levaquin) 750 mg in 150 mls @ 100 mls/hr IV Q48H [facility] Last Infusion: 02/03/25 20:49 Dose: Infused Documented By: MINAL Levothyroxine Sodium (Levothyroxine Sodium 75 Mcg Tablet) 75 mcg PO DAILY@0630 [facility] Last Admin: 02/05/25 05:47 Dose: 75 mcg Documented By: BLAIR Magnesium Hydroxide (Milk Of Magnesia 30 Ml Oral.Susp) 30 ml PO DAILY PRN PRN Reason: Constipation Melatonin (Melatonin 3 Mg Tablet) 6 mg PO BEDTIME PRN PRN Reason: Insomnia Last Admin: 02/03/25 20:51 Dose: 6 mg Documented By: MINAL Omeprazole (Omeprazole 20 Mg Capsule.Dr) 20 mg PO DAILY@0630 [facility] Last Admin: 02/05/25 05:47 Dose: 20 mg Documented By: BLAIR Ondansetron HCl (Ondansetron Hcl 4 Mg/2 Ml Vial) 4 mg IVPUSH Q8H PRN PRN Reason: Nausea and Vomiting Last Admin: 02/03/25 11:16 Dose: 4 mg Documented By: REZA Oxycodone HCl (Oxycodone Hcl Immed Release 5 Mg Tablet) 5 mg PO Q6H PRN PRN Reason: Pain, Severe (Pain Scale 7-10) Sodium Chloride (0.9 % Sodium Chloride Flush 3 Ml Syringe) [facility] Last Admin: 02/05/25 08:40 Dose: 3 ml Documented By: KALA Tramadol HCl (Tramadol Hcl 50 Mg Tablet) 50 mg PO Q8H PRN PRN Reason: Pain, Moderate(Pain Scale 4-6) Labs 02/04/25 05:24 02/04/25 05:24 Assessment and Plan (1) Dyslipidemia: Status: Acute (2) Current use of [facility] anticoagulation: Status: Acute (3) Multinodular thyroid: Status: Acute (4) External hemorrhoids: Status: Acute (5) Proctocolitis: Status: Acute (6) Bloody diarrhea: Status: Acute (7) Colitis: Status: Acute (8) Chronic kidney disease, stage 3: Status: Acute (9) Abdominal pain: Status: Acute (10) Mixed stress and urge urinary incontinence: Status: Acute (11) Urinary incontinence: Status: Acute (12) Poor appetite: Status: Acute (13) Weakness: Status: Acute Plan 79-year-old female with a past medical history significant for Crohn's disease, history anal cancer s/p radiation and chemotherapy last treatment in August, diverticulosis, hypothyroid, paroxysmal AFib on Eliquis, hypothyroidism and mild COPD, who presented to the ED due to 2 weeks of left lower quadrant pain with significant diarrhea; 15-20 times per day, admitted with acute proctocolitis and acute uncomplicated urinary tract infection. Acute proctocolitis Hematochezia External hemorrhoids Suffering with generalized abdominal pain and chronic diarrhea that had worsened for the past 2 weeks prior to admission. Stool studies-ve. Hematochezia possibly secondary to proctocolitis vs hemorrhoids Hgb stable CT abdomen pelvis revealing severe rectosigmoid wall thickening suggestive of colitis. Physical examination unremarkable currently Patient's appetite has improved. PLAN - gastroenterology recommendations greatly appreciated - advance diet from full liquid to regular - continue levofloxacin - continue metronidazole - monitor intake/output, stooling - resume Apixaban Acute uncomplicated urinary tract infection - Continue levofloxacin - continue metronidazole CHRONIC MEDICAL ISSUES - Paroxysmal atrial fibrillation: Continue diltiazem, continue Apixaban - Mild COPD without exacerbation: No acute issues/ no home meds - CKD stage IIIA: At baseline creatinine - Acquired hypothyroidism: Continue levothyroxine QUALITY [employer] - VTE: Apixaban - CODE STATUS: Full code - DIET: Regress from Regular -> full liquid diet - DISPOSITION: If tolerates full liquid diet without complaint for 24 hours, can be discharged tomorrow Total time managing care of this patient today: 35 minutes. Quality Stroke Does the patient have a stroke diagnosis?: No VTE Prior VTE?: No VTE Risk Level:: Medical - moderate - high VTE Device Contraindication: Treatment Not Indicated VTE Drug Contraindication: N/A - Med Ordered
--- NOTE | 2025-02-05 14:15 | P.PNGI_ITS ---
Subjective Subjective Date of Service: 02/05/25 Interval History: managing liquids and soft diet, was unable to take solids yesterday she is feeling much better no abdominal pain no blood in stool no n/v Critical Care Time (minutes): 0 Physical Exam 2 Exam: Exam: EXAM: GENERAL: The patient is well developed and nontoxic. VITAL SIGNS:see workflow HEENT: Nonicteric sclerae, PERRLA, EOMI. Oropharynx clear. Moist mucous membranes. Conjunctivae appear well perfused. No thyroid mass. CHEST: Chest wall is nontender. HEART: Regular rate and rhythm without murmurs. LUNGS: Clear to auscultation bilaterally. ABDOMEN: Soft, positive bowel sounds, nontender, no organomegaly.no flank tenderness SKIN: No rash, no excessive bruising, petechiae, or purpura. NEUROLOGIC: Cranial nerves II-XII intact without motor/sensory deficit. Psych: normal affect Vital Signs: Vital Signs: Last Vital Signs Temp 98.1 F 02/05/25 07:24 Pulse 84 02/05/25 08:39 Resp 16 02/05/25 07:24 BP 123/55 L 02/05/25 08:39 Pulse Ox 95 02/05/25 07:24 O2 Del Method Room Air 02/05/25 07:24 BMI result Body Mass Index 20.0 Objective Data Labs 02/04/25 05:24 02/04/25 05:24 Microbiology Microbiology Results: Microbiology 02/01/25 19:36 Blood - Venous Blood Culture - Preliminary No growth after 48 hours. 02/01/25 19:26 Blood - Venous Blood Culture - Preliminary No growth after 48 hours. 02/01/25 19:17 Urine clean catch - Clean Catch Midstream Urine Culture - Final Escherichia coli Procedures Date of Service Date of Service: 02/05/25 Progress Note: A&P Assessment and plan (1) Crohn's disease: Status: Acute Plan 1/ proctocolitis, seems to be improving with abx, there was concern for crohns in pat but due to anal cancer this was put on backburner, but she is now in remission from this PLAN: 1/ cont with ABX, if sx recur can use mesalamine PO and enemas, 2/ repeat sigmoidoscopy in few months to re eval, Time Spent With Patient Time: Total time managing care of this patient today ____ minutes. Quality Stroke Does the patient have a stroke diagnosis?: No VTE Prior VTE?: No VTE Risk Level:: Medical - moderate - high VTE Device Contraindication: Treatment Not Indicated VTE Drug Contraindication: N/A - Med Ordered
[2025-02-05 15:07] VITALS: BP 93/50; PULSE 84; RESP 18; TEMP 36.5; O2SAT 95
[2025-02-05 20:00] VITALS: BP 122/57; PULSE 85; RESP 16; TEMP 36.9; O2SAT 95
[2025-02-06 03:08] VITALS: BP 115/58; PULSE 90; RESP 17; TEMP 36.3; O2SAT 97
[2025-02-06] MEDS: metroNIDAZOLE/NS 500 MG/100 ML PIGGYBACK 100 MG IV (04:12)
[2025-02-06 07:50] VITALS: BP 104/55; PULSE 66; RESP 14; TEMP 36.2; O2SAT 97
[2025-02-06] MEDS: 0.9 % Sodium Chloride Flush 3 ML SYRINGE IVFLUSH (08:19)
[2025-02-06] MEDS: dilTIAZem HCL CD 240 MG CAP.ER.DEG PO (08:19)
--- NOTE | 2025-02-06 09:13 | W.MHC.F2F ---
Service Date Service Date: 02/06/25 Encounter Date of encounter: 02/06/25 Reasons for Services Signs and symptoms assessed: Weakness 2/2 inpatient stay, frailty and elderly. Proctocolitis, with prior bloody diarrhea. Reason for [facility]: medication management and teach disease management Reason for physical therapy: home safety and mobility, therapeutic exercises and gait/transfer training Homebound: Leaving the home is medically contraindicated at this time without the asist of a device and/or another person due th the listed conditions above and below. Reason homebound: leg weakness and poor balance / fall risk Certification: Based on the above findings, I certify that this patient is confined to the home and needs intermittent [facility] care, physical therapy and/or speech therapy, or continues to need occupational therapy. The patient is under my care, and I have initiated the establishment of the plan of care. The patient will be followed by a physician who will periodically review the plan of care. Time Spent With Patient Time: Total time managing care of this patient today 35 minutes.
--- NOTE | 2025-02-06 09:53 | MHC.CM.PN ---
IMM 02/06/25 Patient is discharged today. PT daily not recommendation is Home with services. Patient has arranged for transportation home.
[2025-02-06 11:41] VITALS: BP 115/55; PULSE 83; RESP 16; TEMP 36.3; O2SAT 98
--- NOTE | 2025-03-27 18:44 | P.DS_ITS ---
DS: Providers Provider Date of Service: 02/06/25 Date of admission: 02/01/25 20:43 Date of discharge: 02/06/25 Primary care physician: Kala Lundberg MD Consults: 02/01/25 23:10 Consult to General Surgery Routine Consulting [place] [facility] [place] [facility] Reason for consultation: colitis, hx anal cancer 02/03/25 11:28 Consult to Gastroenterology Routine Consulting Provider: Curt Hyman Reason for consultation: Proctocolitis, hematochezia Has provider been notified: Yes DS: Diagnosis Discharge Diagnosis (1) Crohn's disease: Status: Acute DS: Summary Hospital Course Hospital Course: 79-year-old female with a past medical history significant for Crohn's disease, history anal cancer s/p radiation and chemotherapy last treatment in August, diverticulosis, hypothyroid, paroxysmal AFib on Eliquis, hypothyroidism and mild COPD, who presented to the ED due to 2 weeks of left lower quadrant pain with significant diarrhea; 15-20 times per day, admitted with acute proctocolitis and acute uncomplicated urinary tract infection. Acute proctocolitis Hematochezia External hemorrhoids Suffering with generalized abdominal pain and chronic diarrhea that had worsened for the past 2 weeks prior to admission. Stool studies-ve. Hematochezia possibly secondary to proctocolitis vs hemorrhoids Hgb stable CT abdomen pelvis revealing severe rectosigmoid wall thickening suggestive of colitis. Physical examination unremarkable currently Patient's appetite has improved. Ready for discharge home Recommendations : - gastroenterology FU outpatient - advance diet from full liquid to regular on discharge - continue levofloxacin - continue metronidazole - monitor intake/output, stooling - resume Apixaban Acute uncomplicated urinary tract infection - Continue levofloxacin - continue metronidazole Status at Discharge Functional status at discharge: independent ambulation Overall status at discharge: patient is back to baseline Time Attestation Total time managing care of this patient today: 45 mintues. Discharge Coordination Time (in mins): 35 Quality: Safe Use of Opioids Does Pt have an Active Cancer Diagnosis on the Problem List?: No Quality: Stroke Does the patient have a stroke diagnosis?: No Physical Exam Exam: Exam: General: A&O x3, oriented to time place person and situation, comfortable, no pain Cardiac: S1, S2 auscultated with no S3/4, no MRG. Well perfused. Respiratory: Normal breath sounds auscultated throughout all lung zones, without wheezing, rales. Normal rate. GI/ : No abdominal pain on palpation, no masses or distentions. MSK: Normal ambulation without pain at bony prominences or musculature Neurological: Normal neurological examination on overview, without obvious CN II-XII abnormalities. Vital Signs: Vital Signs: Last Vital Signs Temp 97.3 F 02/06/25 11:41 Pulse 83 02/06/25 11:41 Resp 16 02/06/25 11:41 BP 115/55 L 02/06/25 11:41 Pulse Ox 98 02/06/25 11:41 O2 Del Method Room Air 02/06/25 11:41 BMI result Body Mass Index 20.0 DS: Data Data Completed and Pending Completed studies during hospitalization [Text1]: Procedures Excision of Anus, Via Natural or Artificial Opening, Diagnostic (05/07/24) Excision of Ascending Colon, Via Natural or Artificial Opening Endoscopic, Diagnostic (05/07/24) Excision of Rectum, Via Natural or Artificial Opening Endoscopic, Diagnostic (10/30/24) Excision of Sigmoid Colon, Via Natural or Artificial Opening Endoscopic, Diagnostic (05/07/24) Excision of Stomach, Pylorus, Via Natural or Artificial Opening Endoscopic, Diagnostic (05/07/24) Discharge Plan Discharge Anticipated Discharge Date/Time: 02/06/25 09:08 Patient Disposition: Home Health Service Discharge Diagnosis: Acute Proctocolitis Referrals: Kala Lundberg MD [Primary Care Provider, Internal Medicine] - 1 Week Discharge Medications: Continued Eliquis 5 mg tablet 5 mg PO BID Rx Instructions: stop for 3 days before colonoscopy diltiazem HCl 240 mg tablet extended release 24 hr 240 mg PO DAILY tramadol 50 mg tablet 50 mg PO Q8H PRN (Reason: pain, severe) Qty: 40 0RF No Action levothyroxine 75 mcg tablet 75 mcg PO DAILY@0600 flecainide 50 mg tablet 75 mg PO BID Discharge Orders: Discharge Order (Routine); Ordered 02/06/25 Ordered By: Jeff Torres Diet: Advance to usual diet Activity on Discharge: As tolerated Stand Alone Forms: Patient Portal Discharge page Print Language: Azeri Care Plan Goals: As above Health Concerns: As above Plan of Treatment: - Continue antibiotics until complete - Follow up with PCP within 1 week of discharge Assessment: Patient hemodynamically stable at time of discharge. No acute complaints at time of discharge. Patient is eating full liquid diet regularly 3 times a day, and endorses an improving appetite. Safe for discharge home, not necessitating continued inpatient admission Discharge Date/Time: 02/06/25 11:41
== END 2025-02-06 11:41 | disposition home health service (06) | DRG 392 ==
LOC: HO.ED 20:17 → HO.EDOVER 20:45 → HO.S3 23:20
PROVIDERS: Physician Assistant Medical; Student in an Organized Health Care Education/Training Program; Admitting Provider Physician Assistant; Emergency Provider Emergency Medicine; PCP Internal Medicine; Visit Provider Hospitalist
DX: K52.9 Noninfective gastroenteritis and colitis, unspecified (principal); N39.0 Urinary tract infection, site not specified; K92.1 Melena; K50.90 Crohn's disease, unspecified, without complications; E03.9 Hypothyroidism, unspecified; I48.0 Paroxysmal atrial fibrillation; J44.9 Chronic obstructive pulmonary disease, unspecified; K64.4 Residual hemorrhoidal skin tags; N18.30 Chronic kidney disease, stage 3 unspecified; Z20.822 Contact with and (suspected) exposure to COVID-19; Z87.891 Personal history of nicotine dependence; Z85.048 Personal history of other malignant neoplasm of rectum, rectosigmoid junction, and anus; Z79.01 Long term (current) use of anticoagulants; Z79.890 Hormone replacement therapy; Z79.899 Other long term (current) drug therapy
CPT/HCPCS: 36415; 74177; 80048; 80076; 81001; 81003; 83605; 83690; 84439; 84443; 85025; 87040; 87086; 87088; 87186; 87493; 87502; 87507; 87635; 93005; 97116; 97161; 99285; J1836; J1956; J2405; J7120; Q9967

== ENCOUNTER → 2025-02-01 15:24 | Outpatient (BNV) | payer MEDICARE, BC, SELFPAY | PROVIDERS: Admitting Provider Physician Assistant; Emergency Provider Emergency Medicine; PCP Internal Medicine; Visit Provider Internal Medicine Cardiovascular Disease | DX: R00.0 Tachycardia, unspecified (principal) | CPT/HCPCS: 93010 ==

== ENCOUNTER → 2025-02-01 17:49 | Outpatient (BNV) | payer MEDICARE, BC, SELFPAY | PROVIDERS: Emergency Provider Emergency Medicine; PCP Internal Medicine; Visit Provider Student in an Organized Health Care Education/Training Program | DX: K63.89 Other specified diseases of intestine (principal); N32.89 Other specified disorders of bladder | CPT/HCPCS: 74177 ==

== ENCOUNTER → 2025-02-01 20:43 | Outpatient (BNV) | payer MEDICARE, BC, SELFPAY | PROVIDERS: Admitting Provider Physician Assistant; Emergency Provider Emergency Medicine; PCP Internal Medicine; Visit Provider Student in an Organized Health Care Education/Training Program | DX: K52.9 Noninfective gastroenteritis and colitis, unspecified (principal); N39.0 Urinary tract infection, site not specified | CPT/HCPCS: 99223; 99233 ==

== ENCOUNTER → 2025-02-01 20:43 | Outpatient (BNV) | payer MEDICARE, BC, SELFPAY | PROVIDERS: Admitting Provider Physician Assistant; Emergency Provider Emergency Medicine; PCP Internal Medicine; Visit Provider Internal Medicine Gastroenterology | DX: K50.90 Crohn's disease, unspecified, without complications (principal) | CPT/HCPCS: 99232 ==

== ENCOUNTER → 2025-02-01 20:43 | Outpatient (BNV) | payer MEDICARE, BC, SELFPAY | PROVIDERS: Admitting Provider Physician Assistant; Emergency Provider Emergency Medicine; PCP Internal Medicine; Visit Provider Surgery | DX: K52.9 Noninfective gastroenteritis and colitis, unspecified (principal) | CPT/HCPCS: 99222; 99232 ==

== ENCOUNTER 2025-02-26 10:45 | Outpatient (AMB) | payer MEDICARE, BC, SELFPAY ==
--- NOTE | 2025-02-26 10:47 | MHC.PC.OV ---
Vital Signs 02/26/25 10:53 Height 5 ft 1 in Weight 117 lb BMI 22.1 BP 100/60 Blood Pressure Location Lt brachial Position Sitting Respiration 16 Pulse 94 Pulse Source Pulse Oximeter Temp 97.7 F Temp Source Oral Pulse Oximetry (%) 99 Oxygen Delivery Method Room Air Intake Visit Reasons: AWV, resched Intake Note: Pt is here today for her AWV Allergies tetracycline (TETRACYCLINE) Allergy (Unknown, Verified 02/26/25 10:49) ITCHINESS, rash nitrofurantoin Allergy (Verified 02/26/25 10:49) Swelling atorvastatin (Lipitor) Adverse Reaction (Unknown, Verified 02/26/25 10:49) Muscle pain bactrim Allergy (Unknown, Uncoded 02/26/25 10:49) Elevated LFTs/Itching/Nausea fentanyl Adverse Reaction (Severe, Uncoded 02/26/25 10:49) Unconscious Tobacco use date assessed: 02/26/25 Last assessed Fall Risk: 02/26/25 Dental Screening Dental Screen Date: 02/26/25 [facility] Medical History History of radiation exposure History of diverticulitis Anal squamous cell carcinoma Hemorrhoids 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 External hemorrhoids Hyperuricemia Vitamin D deficiency Impaired fasting glucose Inflammatory arthritis Multinodular thyroid Mixed stress and urge urinary incontinence Dyslipidemia Paroxysmal atrial fibrillation Chronic kidney disease, stage 3 Osteoporosis COPD (chronic obstructive pulmonary disease) Acquired hypothyroidism Surgical History Hx of colonoscopy S/P partial hysterectomy History of section Family History Father AAA (abdominal aortic aneurysm) CVA (cerebral vascular accident) Mother Diabetes mellitus HTN (hypertension) Gallbladder cancer Sister Diabetes mellitus Son Substance use disorder Son Substance use disorder Social History Household Members: Children Household Members Other:: son Housing: House Housing Other:: [employer] Are you a primary school child care attendant to a significant other at home: No Do you presently have visiting nurse or other home services: No Alcohol intake: current Alcohol intake frequency: does not drink Comment: steady on feet in room Patient Tobacco Use Status: Former Tobacco user Tobacco use type: Cigarette Years Smoked: 20 years e-Cigarette/Vaping Use: Never Used Second Hand Smoke Exposure: No Substance Use Type: Marijuana Advance Directives Date on File: 05/30/20 service: No Current occupational status: retired Gender identity: Female Cognitive needs: No Hearing needs: No Vision needs: Yes Questionnaire PHQ-9 Over the last 2 weeks, how often have you been bothered by any of the following problems? 1. Little interest or pleasure in doing things: more than half the days 2. Feeling down, depressed, or hopeless: more than half the days 3. Trouble falling or staying asleep, or sleeping too much: more than half the days 4. Feeling tired or having little energy: more than half the days 5. Poor appetite or overeating: more than half the days 6. Feeling bad about yourself - or that you are a failure or have let yourself or your family down: not at all 7. Trouble concentrating on things, such as reading the newspaper or watching television: not at all 8. Moving or speaking so slowly that other people could have noticed. Or the opposite - being so fidgety or restless that you have been moving around a lot more than usual: not at all 9. Thoughts that you would be better off or of hurting yourself in some way: not at all Total score: 10 Depression Screening Interpretation: Positive Depression Screening Done: Yes 88318 - PHQ-9 Billing: Yes Source: Developed by Drs. Orlando Forbes, Leah Yepez, Samuel Pelayo and colleagues, with an educational cuba from [employer]. Thrive Questionnaire Date Thrive assessed: 02/02/25 CATIA-7 AMB Questionnaire CATIA-7 Date CATIA - 7 assessed: 01/21/25 Source: Developed by Drs. Orlando Forbes, Leah Yepez, Samuel Pelayo and colleagues, with an educational cuba from [employer]. Physical exam (Primary Care) Vital Signs: Last Vital Signs Temp 97.7 F 02/26/25 10:53 Pulse 94 02/26/25 10:53 Resp 16 02/26/25 10:53 BP 100/60 02/26/25 10:53 Pulse Ox 99 02/26/25 10:53 Oxygen Delivery Method Room Air 02/26/25 10:53 BMI result Body Mass Index 22.1 Tobacco/Smoking Status: Tobacco use Status Tobacco use date assessed 02/26/25 02/26/25 10:51 Patient Tobacco Use Status Former Tobacco user 02/26/25 10:51 Tobacco use type Cigarette 02/26/25 10:51 e-Cigarette/Vaping Use Never Used 02/26/25 10:51 Depression Screening Interpretation: Positive Thrive Assessment: Date of Thrive Assessment Date Thrive assessed 02/02/25 02/26/25 10:51 Coding Additional Codes PHQ-9 - 26555 - PHQ-9 Billing: Yes ([id number])
[2025-02-26 10:53] VITALS: BP 100/60; PULSE 94; RESP 16; TEMP 36.5; O2SAT 99; BMI 22.1
--- NOTE | 2025-02-26 11:08 | AM.OFFVISMDC ---
Intake Vital Signs 02/26/25 10:53 02/26/25 11:15 Height 5 ft 1 in Weight 117 lb BMI 22.1 22.1 BP 100/60 Blood Pressure Location Lt brachial Position Sitting Respiration 16 Pulse 94 Pulse Source Pulse Oximeter Temp 97.7 F Temp Source Oral Pulse Oximetry (%) 99 Oxygen Delivery Method Room Air Intake Visit Reasons: AWV, resched Intake Note: Pt is here today for her AWV Allergies tetracycline (TETRACYCLINE) Allergy (Unknown, Verified 02/28/25 13:05) ITCHINESS, rash nitrofurantoin Allergy (Verified 02/28/25 13:05) Swelling atorvastatin (Lipitor) Adverse Reaction (Unknown, Verified 02/28/25 13:05) Muscle pain bactrim Allergy (Unknown, Uncoded 02/28/25 13:05) Elevated LFTs/Itching/Nausea fentanyl Adverse Reaction (Severe, Uncoded 02/28/25 13:05) Unconscious Medication List - Last Reconciled 02/26/25 by Kala Lundberg MD apixaban (Eliquis) 5 mg PO BID diltiazem HCl ER 240 mg PO DAILY flecainide 75 mg PO BID Held on 11/02/24. Instructions: Hold until complete course of azithromycin levothyroxine 75 mcg PO DAILY metronidazole 500 mg PO BID 4 days omeprazole 20 mg PO DAILY@0630 oxycodone 5 mg PO Q6H PRN 3 days peg [id number] 1-0.2-0.2 % (Artificial Tears ([id number])) 2 drps ophthalmic (eye) Q4H PRN tramadol 50 mg PO Q8H PRN HPI AWV, resched HPI Details SWV ? 79 year old lady with past medical history for dyslipidemia, paroxysmal atrial fibrillation currently on flecainide and apixaban, has COPD, acquired hypothyroidism, osteoporosis , chronic kidney disease stage 3 , mixed stress and urge incontinence , inflammatory arthritis, hyperuricemia, history of Crohn's disease and anal cancer status post radiation and chemotherapy treated in August 2024, here today for her subsequent annual wellness visit She had a normal fasting lipid panel done 05/03/2024 and normal fasting glucose on 02/04/2025 She had a screening mammogram done January 25/2023, and had a colonoscopy done 03/11/2023 with a hyperplastic polyp removed by Dr. Reyes, no further testing needed. Had a bone density scan done in 2022 which showed presence of osteopenia in left femur, left femoral neck and osteoporosis in her lumbar spine. She was previously being seen and receiving Prolia injection with Dr. Yuan, but did not keep her appointment for the 2nd infusion. Did not want to continue with the treatment. She has up-to-date with her pneumonia vaccination , Tdap, shingles vaccine and RSV vaccine, but has not yet had her yearly flu vaccine or COVID booster . .? Medical / Social History Reviewed? Past Medical History ?Yes . ? [place] of Care / Care Team list updated ?Yes . ? Surgical/Hospitalization History ?Yes . ? Current Medications (including OTC and supplements) ?Yes . ? Family History ?Yes . ? Tobacco Control form ?Yes . ? AUDIT-C (Alcohol use) form ?Yes . ? Illicit drug use in Social History ?Yes . ? Current diagnosis of depression? ?No ? Appropriate PHQ2/PHQ9 completed ?Yes . ? Data entered by ?Operations Manager and reviewed by provider ? Fall Risk ? Fall History? Have you had any falls with injury in the past year? ?yes. ? Have you had two or more falls in the past year? ?yes ? HRA filled out by the patient, reviewed by Provider and scanned. ? SWV ? Balance? Romberg ?negative . ? Tandem walk unable to do ? Walk and Turn ?Yes . ? Rise from sit to stand ?Yes . ?Vision? Corrective lens ?Yes ? Vision screen ? Up-to-date, goes to [facility], diagnosed with dry AMD and cataract ?Hearing? Whisper test ?pass . ?Written Plan?Completed. See Patient Documents.-Healthcare proxy form completed in 2020, MOLST form completed today? [facility] Medical History (Updated 03/03/25 @ 20:57 by Kala Lundberg MD) Paroxysmal atrial fibrillation History of Crohn's disease History of radiation exposure History of diverticulitis Anal squamous cell carcinoma Hemorrhoids Current use of alf anticoagulation External hemorrhoids Hyperuricemia Vitamin D deficiency Impaired fasting glucose Inflammatory arthritis Multinodular thyroid Mixed stress and urge urinary incontinence Dyslipidemia Osteoporosis COPD (chronic obstructive pulmonary disease) Acquired hypothyroidism Surgical History Hx of colonoscopy S/P partial hysterectomy History of section Family History Father AAA (abdominal aortic aneurysm) CVA (cerebral vascular accident) Mother Diabetes mellitus HTN (hypertension) Gallbladder cancer Sister Diabetes mellitus Son Substance use disorder Son Substance use disorder Social History Household Members: Children Household Members Other:: son Housing: House Housing Other:: [employer] Are you a primary career advisor to a significant other at home: No Do you presently have visiting nurse or other home services: No Alcohol intake: current Alcohol intake frequency: does not drink Comment: steady on feet in room Patient Tobacco Use Status: Former Tobacco user Tobacco use type: Cigarette Years Smoked: 20 years e-Cigarette/Vaping Use: Never Used Second Hand Smoke Exposure: No Substance Use Type: Marijuana Advance Directives Date on File: 05/30/20 service: No Current occupational status: retired Gender identity: Female Cognitive needs: No Hearing needs: No Vision needs: Yes Questionnaire Medicare Wellness Checkup What is your age?: 79 or older What gender do you identify with?: female During the past 4 weeks, how much have you been bothered by emotional problems such as feeling anxious, depressed, irritable, sad or downhearted, and blue?: not at all During the past 4 weeks, has your physical & emotional health limited your social activities with family, friends, neighbors, or groups?: not at all During the past 4 weeks, how much bodily pain have you generally had?: mild pain During the past 4 weeks, was someone available to help you if you needed & wanted help?: yes, quite a bit During the past 4 weeks, what was the hardest physical activity you could do for at least 2 minutes?: moderate Can you get to places out of walking distance without help? (For eg., can you travel alone on buses, taxis or drive your car?): Yes Can you go shopping for groceries or clothes without someone's help?: Yes Can you prepare your own meals?: Yes Can you do your housework without help?: Yes Because of any health problems, do you need the help of another person with your personal care needs such as eating, bathing, dressing or getting around the house?: No Can you handle your own money without help?: Yes During the past 4 weeks, how would you rate your health in general?: good During the past 4 weeks how have things been going for you?: good & bad parts about equal Are you having difficulties driving your car?: no Do you always fasten your seat belt when you are in a car?: yes, usually During past 4 weeks, have you been bothered by the following: never: Falling or dizzy when standing up, Sexual problems?, Trouble eating well?, Teeth or denture problems? and Problems using the telephone? and seldom: Tiredness or fatigue? Have you fallen 2 or more times in the past year?: Yes Are you afraid of falling?: Yes Are you a smoker?: no During the past 4 weeks, how many drinks of wine, beer, or other alcoholic beverages did you have?: no alcohol at all Do you exercise for about 20 minutes 3 or more times a week?: no, I usually do not exercise this much Have you been given information to help with the following?: yes: Hazards in your house that might hurt you? and no: Keeping track of your medications? How often do you have trouble taking medicines the way you have been told to take them?: I always take medicine as prescribed How confident are you that you can control & manage most of your health problems?: somewhat confident What is your race?: White Mini Mental State Exam (MMSE) Orientation What is the (year) (season) (date) (day) (month)?: year (2024), season (Fall), date (02/26/25), day (Tuesday ) and month () Where are we (state) (county) (town or city) (hospital) (floor)?: state ([facility] ), county ([place]), town or city ([place]) and hospital/clinic ([facility]) Score Score: 9 Activity of Daily Living Bathing - sponge bath, tub bath or shower: receives no assistance (gets in/out by self, if usual bathing means Dressing - getting clothes from closets & drawers, including inner/outer garments & fasteners.: gets clothes & gets completely dressed without help Toileting - going to the 'toilet room' for urine/bowel elimination & cleaning self/arranging clothes: goes to toilet room, cleans self, arranges clothes without help Transfer: moves in & out of bed and chair without help (may use support object) Continence: has occasional 'accidents' Feeding: feeds self without help Total Score: 0 Information obtained from: patient Using telephone: independent Traveling: needs assistance Shopping: needs assistance Preparing meals: independent Housework: needs assistance Taking medicine: independent Managing money: independent PHQ-9 Over the last 2 weeks, how often have you been bothered by any of the following problems? 1. Little interest or pleasure in doing things: not at all 2. Feeling down, depressed, or hopeless: not at all 3. Trouble falling or staying asleep, or sleeping too much: not at all 4. Feeling tired or having little energy: several days 5. Poor appetite or overeating: not at all 6. Feeling bad about yourself - or that you are a failure or have let yourself or your family down: not at all 7. Trouble concentrating on things, such as reading the newspaper or watching television: not at all 8. Moving or speaking so slowly that other people could have noticed. Or the opposite - being so fidgety or restless that you have been moving around a lot more than usual: not at all 9. Thoughts that you would be better off or of hurting yourself in some way: not at all Total score: 1 Depression Screening Interpretation: Negative Depression Screening Done: Yes 22040 - PHQ-9 Billing: Yes Source: Developed by Drs. Orlando Forbes, Leah Yepez, Samuel Pelayo and colleagues, with an educational cuba from [employer]. Physical Exam Vital Signs: Last Vital Signs Temp 97.7 F 02/26/25 10:53 Pulse 94 02/26/25 10:53 Resp 16 02/26/25 10:53 BP 100/60 02/26/25 10:53 Pulse Ox 99 02/26/25 10:53 Oxygen Delivery Method Room Air 02/26/25 10:53 BMI result Body Mass Index 22.1 Assessment & Plan Assessment & Plan (1) Encounter for subsequent annual wellness visit (AWV) in Medicare patient: Code(s): Z00.00 - Encounter for general adult medical examination without abnormal findings Plan: Medical wellness checklist reviewed, discussed with patient and updated. MOLST form completed today patient already had a healthcare proxy in place. Reminded to get her COVID vaccine booster and yearly flu vaccine (2) Dyslipidemia: Code(s): E78.5 - Hyperlipidemia, unspecified Plan: Fasting lipids done earlier this year was within normal (3) Acquired hypothyroidism: Code(s): E03.9 - Hypothyroidism, unspecified Plan: Currently on levothyroxine 75 mcg daily (4) Osteoporosis: Code(s): M81.0 - Age-related osteoporosis without current pathological fracture Qualifiers: Osteoporosis type: age-related Presence of current pathological fracture: without current pathological fracture Qualified Code(s): M81.0 - Age-related osteoporosis without current pathological fracture Plan: Patient without any history of fractures, does not want to go get further testing or treatment (5) Crohn's disease: Code(s): K50.90 - Crohn's disease, unspecified, without complications Qualifiers: Gastrointestinal tract location: unspecified location Plan: Followed By GI clinic (6) Anal squamous cell carcinoma: Code(s): C21.0 - Malignant neoplasm of anus, unspecified Plan: Followed by Dr. Chung status post radiation and chemotherapy (7) Advance directive discussed with patient: Code(s): Z71.89 - Other specified counseling Plan: Initiated the conversation about Advanced Directives. Advanced Directives help patients prepare for current and future decisions about their medical treatment and place of care. Discussed with patient that it is a process where a patients current condition and prognosis are reviewed, their wishes for information regarding their illness are elicited, and likely medical dilemmas are presented and options discussed. MOLST form completed today. Patient already has a healthcare proxy on file. The form can be amended as needed, reviewed yearly and make changes as needed (8) Paroxysmal atrial fibrillation: Comment: Followed by Dr. Mendoza Code(s): I48.0 - Paroxysmal atrial fibrillation Plan: Currently on apixaban 5 mg twice a day and diltiazem 240 mg daily as well as flecainide 75 mg twice a day. Currently followed by Dr. De La Cruz Quality Reporting (2019) Depression/Bipolar (159/160/161/177) PHQ-9: Total score: 1 Coding Level of Care Code Medicare Subsequent (G0439) Diagnoses Encounter for subsequent annual wellness visit (AWV) in Medicare patient Z00.00 Dyslipidemia E78.5 Acquired hypothyroidism E03.9 Age-related osteoporosis without current pathological fracture M81.0 Osteoporosis type: age-related Presence of current pathological fracture: without current pathological fracture Crohn's disease K50.90 Gastrointestinal tract location: unspecified location Anal squamous cell carcinoma C21.0 Advance directive discussed with patient Z71.89 Paroxysmal atrial fibrillation I48.0 CPT Codes Advance Care Planning - Time spent: 16-45 minutes ([id number]) Additional Codes PHQ-9 - 08286 - PHQ-9 Billing: Yes ([id number]) Advance Care Planning Advance Care Planning discussion: Completed/Scanned Date of discussion: 02/26/25 Who was present: Patient Forms completed: Health Care Proxy (Completed in 2020) and MOLST Time spent: 16-45 minutes Actual minutes spent: 1
[2025-02-26 11:15] VITALS: BMI 22.1
--- OUTSIDE RECORDS SUMMARY | 2025-02-26 12:51 | XMS_ITS | Encounter Summary ---
Author Organization [facility] Address [address] [place] [address] Care Team Providers Care Bulk Plant Manager Name Role Phone Wendy Mathis DO Primary Care Provider + Encounter Details Date Type Department Care Team (Latest Contact Info) Description 11/10/2024 Lab Requisition [facility] - Main Lab [address] [facility] [employer] [place] [address] Michael Allen MD [address] [place] [address] Diverticulitis of intestine, part unspecified, [...] LAB CHEMISTRY METHOD 11/12/2024 11:01 AM EDT [facility] Potassium 4.1 3.5 - 5.5 mmol/L [...] LAB CHEMISTRY METHOD 11/12/2024 11:01 AM EDT [facility] Albumin 2.4(L) 3.2 - 5.0 g/dL LAB CHEMISTRY METHOD 11/12/2024 11:01 AM EDT [facility] Total Bilirubin 0.3 0.0 - 1.4 mg/dL LAB CHEMISTRY METHOD 11/12/2024 11:01 AM EDT [facility] Blood Venous blood specimen / Unknown Venipuncture / Unknown 11/12/2024 4:58 AM EDT 11/12/2024 9:55 AM EDT Michael Allen MD LAB BLOOD ORDERABLES Final Resu lt [facility] [address] [place] [address], * (ABNORMAL) Complete blood count (11/12/2024 4:58 [...] LAB HEMETOLOGY METHOD 11/12/2024 10:22 AM EDT [facility] MCHC 31.2(L) 32.0 - 37.0 g/dL LAB HEMETOLOGY METHOD 11/12/2024 10:22 AM EDT [facility] RDW 14.8 11.0 - 15.0 % LAB HEMETOLOGY METHOD 11/12/2024 10:22 AM EDT [facility] Platelets 144 130 - 400 K/mcL LAB HEMETOLOGY METHOD 11/12/2024 10:22 AM EDT [facility] MPV 9.0 7.0 - 11.0 FL LAB HEMETOLOGY METHOD 11/12/2024 10:22 AM EDT [facility] NRBC 0.0 <1.0 % LAB HEMETOLOGY METHOD 11/12/2024 10:22 AM EDT [facility] NRBC Absolute 0.00 <0.10 K/mcL LAB HEMETOLOGY METHOD 11/12/2024 10:22 AM EDT [facility] Blood Venous blood specimen / Unknown Venipuncture / Unknown 11/12/2024 4:58 AM EDT 11/12/2024 9:52 AM EDT Michael Allen MD LAB BLOOD ORDERABLES Final Resu lt [facility] [address] [place] [address], documented in this encounter Visit Diagnoses Diagnosis Diverticulitis of intestine, part unspecified, without perforation or abscess without bleeding documented in this encounter Care Teams Bulk Plant Manager Relationship Specialty Start Date End Date Wendy Mathis DO [address] [facility] [address] [place] [address] PCP - General Family Medicine 05/31/17 documented as of this encounter
--- OUTSIDE RECORDS SUMMARY | 2025-02-26 12:51 | XMS_ITS | Clinical Summary ---
Author Organization [facility] Address [address] [place] [address] Phone Care Team Providers Care Money Market Dealer Name Role Phone Wendy Mathis DO Primary Care Provider + Medical History Medical History Date Comments PAF (paroxysmal atrial fibri llation) (CMS/HCC V24, CMS/HCC V28) DX:PAF (paroxysmal atrial fibrillation) ([facility]) Dyslipidemia DX:Dyslipidemia HTN (hypertension) DX:HTN (hyper tension) [...] Procedure Name Priority Date/Time Associated Diagnosis Comments BASIC METABOLIC PANEL Routine 11/15/2024 5:31 AM EDT Diverticulitis of intestine, part unspecified, without perforation or abscess without bleeding from Last 3 Months or Most Recently Relevant to Health Maintenance Results * Basic metabolic panel (11/15/2024 5:31 AM EDT) Sodium 138 133 - 145 mmol/L LAB CHEMISTRY METHOD 11/15/2024 12:11 PM T [facility] Potassium 4.0 3.5 - 5.5 mmol/L LAB CHEMISTRY METHOD 11/15/2024 12:11 PM [facility] Chloride 103 96 - 110 mmol/L LAB CHEMISTRY METHOD 11/15/2024 12:11 PM [facility] CO2 29 21 - 32 mmol/L LAB CHEMISTRY METHOD 11/15/2024 12:11 PM [facility] Anion Gap 6 3 - 11 LAB CHEMISTRY METHOD 11/15/2024 12:11 PM EDT [facility] Glucose 70 70 - 100 mg/dL LAB CHEMISTRY METHOD 11/15/2024 12:11 PM [facility] BUN 22 5 - 25 mg/dL LAB CHEMISTRY METHOD 11/15/2024 12:11 PM [facility] Creatinine 0.74 0.50 - 1.10 mg/dL LAB CHEMISTRY METHOD 11/15/2024 12:11 PM T [facility] eGFR 82 >=60 mL/min/1. 73m2 LAB CHEMISTRY METHOD 11/15/2024 12:11 PM T [facility] Comment:Calculation based on the Chronic Kidney Disease Epidemiology Collaboration (CKD-EPI) equation refit without adjustment for race. BUN/Creatinine Ratio 29.7 LAB CHEMISTRY METHOD 11/15/2024 12:11 PM [facility] Calcium 8.8 8.5 - 10.5 mg/dL LAB CHEMISTRY METHOD 11/15/2024 12:11 PM [facility] Blood Venous blood specimen / Unknown Venipuncture / Unknown 11/15/2024 5:31 AM EDT 11/15/2024 11:24 AM EDT us Michael Allen MD LAB BLOOD ORDERABLES Final Resu lt [facility] [address] [place] [address], from Last 3 Months or Most Recently Relevant to Health Maintenance Insurance MEDICARE [facility] Care Teams Money Market Dealer Relationship Specialty Start Date End Date Wendy Mathis DO [address] [facility] [address] [place] [address] PCP - General Family Medicine 05/31/17
--- OUTSIDE RECORDS SUMMARY | 2025-02-26 12:51 | XMS_ITS | Encounter Summary ---
Author Organization [facility] Address [address] [place] [address] Care Team Providers Care Dredge Operator Name Role Phone Wendy Mathis DO Primary Care Provider + Encounter Details Date Type Department Care Team (Latest Contact Info) Description 11/17/2024 Lab Requisition [facility] - Main Lab 299 [facility] [place] [address] Michael Allen MD [address] [place] [address] Diverticulitis of intestine, part unspecified, [...] bleeding documented in this encounter Care Teams Dredge Operator Relationship Specialty Start Date End Date Wendy Mathis DO 2 [facility] 2 [place] [address] PCP - General Family Medicine 05/31/17 documented as of this encounter
--- OUTSIDE RECORDS SUMMARY | 2025-02-26 12:51 | XMS_ITS | Encounter Summary ---
Author Organization [facility] Address [address] [place] [address] Phone Care Team Providers Care Imaging Technician Name Role Phone Kala Lundberg MD Primary Care Provider Adolfo Raymundo MBBS Unavailable Maria A Bolivar PATIENT ACCOUNTING REPRESENTATIVE Unavailable Dejah Shepard SPECIAL EDUCATION ITINERANT TEACHER Unavailable [phone] Crista Cummings BUSINESS TECHNOLOGY TEACHER Unavailable Encounter Details Date Type Department Care Team (Late st Contact Info) Description 06/29/2024 Documentation [facility] Rad Onc [address] [place], [place] [phone] Ekta Castro RN [address] [place] [address] [email or web address] Social History Tobacco Use Types Packs/Day Years [...] st Contact Info) Description 12/06/2024 Procedure Pass [address] [address] 12/06/2024 Procedure Pass [address] [address] 03/07/2025 3:15 PM EST Appointment [address] [address] Crista Cummings CNP [address] [place] [address] 03/18/2025 3:00 PM EST Office Visit [facility] at [address] [address] Adolfo Raymundo MBBS [address] [place] [address] [email or web address] 05/22/2025 3:40 PM EST Office Visit [facility] [address] [place] [address] 3rd Floor, [address] [place] [address] Scott Osuna MD [address] [place] [address] 06/12/2025 1:30 PM EST Office Visit [facility] Rad Onc [address] [place] [address] Chantell Villarreal MD [address] [place] [phone] documented as of this encounter Visit Diagnoses Not on filedocumented in this encounter Care Teams Imaging Technician Relationship Specialty Start Date End Date Kala Lundberg MD [address] [facility] [place] [address] PCP - General Internal Medicine 06/22/24 Adolfo Raymundo MBBS [address] [facility] [address] [place] [email or web address] 07/02/24 Maria A Bolivar FNP [address] [place] [phone] [email or web address] Nurse Practitioner Medical Oncology 07/18/24 Dejah Shepard NP [address] [place] [address] Nurse Practitioner 08/14/24 Crista Cummings CNP [address] [place] [phone] [email or web address] Nurse Practitioner 11/29/24 documented as of this encounter Additional Source Comments The information contained in this document represents components of the legal health record. It is not the complete legal health record.[facility]
--- OUTSIDE RECORDS SUMMARY | 2025-02-26 12:51 | XMS_ITS | Encounter Summary ---
Author Organization [facility] Address [address] [place] [address] Care Team Providers Care Food And Beverage Associate Name Role Phone Wendy Mathis DO Primary Care Provider + Encounter Details Date Type Department Care Team (Latest Contact Info) Description 11/05/2024 Lab Requisition [facility] - Main Lab 299 [facility] [place] [address] Michael Allen MD [address] [place] [address] Diverticulitis of intestine, part unspecified, [...] AM EDT) WBC 9.2 4.8 - 10.8 K/[facility] LAB HEMETOLOGY METHOD 11/05/2024 1:54 PM EDT [facility] RBC 3.20(L) 3.80 - 4.80 M/mcL LAB HEMETOLOGY METHOD 11/05/2024 1:54 PM EDT [facility] LAB Hemoglobin 10.4(L) 11.5 - 16.0 g/dL LAB HEMETOLOGY METHOD 11/05/2024 1:54 PM EDT [facility] LAB Hematocrit 33.1(L) 35.0 - 47.0 % LAB HEMETOLOGY METHOD 11/05/2024 1:54 PM [facility] LAB MCV 105.1(H) 79.0 - 98.0 FL LAB HEMETOLOGY METHOD 11/05/2024 1:54 PM [facility] LAB MCH 33.0(H) 27.0 - 32.0 pcg LAB HEMETOLOGY METHOD 11/05/2024 1:54 PM [facility] LAB MCHC 31.4(L) 32.0 - 37.0 g/dL LAB HEMETOLOGY METHOD 11/05/2024 1:54 PM [facility] LAB RDW 15.1(H) 11.0 - 15.0 % LAB HEMETOLOGY METHOD 11/05/2024 1:54 PM [facility] LAB Platelets 164 130 - 400 K/mcL LAB HEMETOLOGY METHOD 11/05/2024 1:54 PM [facility] LAB MPV 8.8 7.0 - 11.0 FL LAB HEMETOLOGY METHOD 11/05/2024 1:54 PM [facility] LAB NRBC 0.0 <1.0 % LAB HEMETOLOGY METHOD 11/05/2024 1:54 PM [facility] LAB NRBC Absolute 0.00 <0.10 K/mcL LAB HEMETOLOGY METHOD 11/05/2024 1:54 PM [facility] LAB Blood Venous blood specimen / Unknown 11/05/2024 5:07 AM EDT 11/05/2024 12:28 PM EDT us Michael Allen MD LAB BLOOD ORDERABLES Final Resu lt [facility] LAB [address] [place] [address], [place] [phone] * (ABNORMAL) Comprehensive metabolic panel (11/05/2024 5:07 AM EDT) Sodium 140 133 - 145 mmol/L LAB CHEMISTRY METHOD 11/05/2024 4:49 PM [facility] LAB Potassium 3.2(L) 3.5 - 5.5 mmol/L LAB CHEMISTRY METHOD 11/05/2024 4:49 PM [facility] LAB Chloride 104 96 - 110 mmol/L LAB CHEMISTRY METHOD 11/05/2024 4:49 PM [facility] LAB CO2 25 21 - 32 mmol/L LAB CHEMISTRY METHOD 11/05/2024 4:49 PM [facility] LAB Anion Gap 11 3 - 11 LAB CHEMISTRY METHOD 11/05/2024 4:49 PM [facility] LAB Glucose 54(L) 70 - 100 mg/dL LAB CHEMISTRY METHOD 11/05/2024 4:49 PM [facility] LAB BUN 16 5 - 25 mg/dL LAB CHEMISTRY METHOD 11/05/2024 4:49 PM [facility] LAB Creatinine 0.78 0.50 - 1.10 mg/dL LAB CHEMISTRY METHOD 11/05/2024 4:49 PM [facility] LAB eGFR 77 >=60 mL/min/1. 73m2 LAB CHEMISTRY METHOD 11/05/2024 4:49 PM [facility] LAB Comment:Calculation based on the Chronic Kidney Disease Epidemiology Collaboration (CKD-EPI) equation refit without adjustment for race. BUN/Creatinine Ratio 20.5 LAB CHEMISTRY METHOD 11/05/2024 4:49 PM [facility] LAB Calcium 8.2(L) 8.5 - 10.5 mg/dL LAB CHEMISTRY METHOD 11/05/2024 4:49 PM EDT [facility] LAB AST (SGOT) 15 10 - 42 unit/L LAB CHEMISTRY METHOD 11/05/2024 4:49 PM [facility] LAB ALT (SGPT) 18 10 - 60 unit/L LAB CHEMISTRY METHOD 11/05/2024 4:49 PM EDT [facility] LAB Alkaline Phosphatase 106 42 - 121 unit/L LAB CHEMISTRY METHOD 11/05/2024 4:49 PM EDT [facility] Total Protein 5.7(L) 6.0 - 8.0 g/dL LAB CHEMISTRY METHOD 11/05/2024 4:49 PM EDT [facility] LAB Albumin 2.1(L) 3.2 - 5.0 g/dL LAB CHEMISTRY METHOD 11/05/2024 4:[facility] Total Bilirubin 0.3 0.0 - 1.4 mg/dL LAB CHEMISTRY METHOD 11/05/2024 4:49 [facility] Blood Venous blood specimen / Unknown 11/05/2024 5:07 AM EDT 11/05/2024 12:28 PM EDT us Michael Allen MD LAB BLOOD ORDERABLES Final Resu lt [facility] LAB [address] [place] [address], documented in this encounter Visit Diagnoses Diagnosis Diverticulitis of intestine, part unspecified, without perforation or abscess without bleeding documented in this encounter Care Teams Food And Beverage Associate Relationship Specialty Start Date End Date Wendy Mathis DO [address] [address] PCP - General Family Medicine 05/31/17 documented as of this encounter
--- OUTSIDE RECORDS SUMMARY | 2025-02-26 12:51 | XMS_ITS | Encounter Summary ---
Author Organization [facility] Address [address] [place] [address] Care Team Providers Care Line Cook Name Role Phone Wendy Mathis DO Primary Care Provider + Encounter Details Date Type Department Care Team (Latest Contact Info) Description 11/03/[address] [facility] - Main Lab 299 [facility] [employer] [address] Michael Allen MD [address] [place] [address] Diverticulitis of small intestine with [...] LAB CHEMISTRY METHOD 11/03/2024 1:02 PM EDT [facility] ([facility] LAB Potassium 4.2 3.5 - 5.5 mmol/L LAB CHEMISTRY METHOD 11/03/2024 1:02 PM [facility] LAB Chloride 108 96 - 110 mmol/L LAB CHEMISTRY METHOD 11/03/2024 1:02 PM [facility] LAB CO2 27 21 - 32 mmol/L LAB CHEMISTRY METHOD 11/03/2024 1:02 PM [facility] LAB Anion Gap 6 3 - 11 LAB CHEMISTRY METHOD 11/03/2024 1:02 PM [facility] LAB Glucose 95 70 - 100 mg/dL LAB CHEMISTRY METHOD 11/03/2024 1:02 PM [facility] LAB BUN 18 5 - 25 mg/dL LAB CHEMISTRY METHOD 11/03/2024 1:02 PM [facility] LAB Creatinine 0.88 0.50 - 1.10 mg/dL LAB CHEMISTRY METHOD 11/03/2024 1:02 PM [facility] LAB eGFR 67 >=60 mL/min/1. 73m2 LAB CHEMISTRY METHOD 11/03/2024 1:02 PM [facility] LAB Comment:Calculation based on the Chronic Kidney Disease Epidemiology Collaboration (CKD-EPI) equation refit without adjustment for race. BUN/Creatinine Ratio 20.5 LAB CHEMISTRY METHOD 11/03/2024 1:02 [facility] LAB Calcium 9.1 8.5 - 10.5 mg/dL LAB CHEMISTRY METHOD 11/03/2024 1:02 PM [facility] LAB AST (SGOT) 12 10 - 42 unit/L LAB CHEMISTRY METHOD 11/03/2024 1:02 PM [facility] LAB ALT (SGPT) 10 10 - 60 unit/L LAB CHEMISTRY METHOD 11/03/2024 1:02 PM [facility] LAB Alkaline Phosphatase 152(H) 42 - 121 unit/L LAB CHEMISTRY METHOD 11/03/2024 1:02 PM [facility] LAB Total Protein 6.0 6.0 - 8.0 g/dL LAB CHEMISTRY METHOD 11/03/2024 1:[address] [facility] LAB Albumin 2.1(L) 3.2 - 5.0 g/dL LAB CHEMISTRY METHOD 11/03/2024 1:[address] [facility] Total Bilirubin 0.2 0.0 - 1.4 mg/dL LAB CHEMISTRY METHOD 11/03/2024 1:[address] [facility] LAB Blood Venous blood specimen / Unknown Venipuncture / Unknown 11/03/2024 5:09 AM EDT 11/03/2024 12:27 PM EDT us Michael Allen MD LAB BLOOD ORDERABLES Final Resu lt [facility] [address] [place] [address], [place] [phone] * (ABNORMAL) Complete blood count (11/03/2024 5:09 AM EDT) WBC 11.2(H) 4.8 - 10.8 K/mcL LAB HEMETOLOGY METHOD 11/03/2024 12:[address] [facility] LAB RBC 3.20(L) 3.80 - 4.80 M/mcL LAB HEMETOLOGY METHOD 11/03/2024 12:44 PM [facility] LAB Hemoglobin 10.1(L) 11.5 - 16.0 g/dL LAB HEMETOLOGY METHOD 11/03/2024 12:[address] [facility] LAB Hematocrit 33.4(L) 35.0 - 47.0 % LAB HEMETOLOGY METHOD 11/03/2024 12:[address] [facility] LAB MCV 105.4(H) 79.0 - 98.0 FL LAB HEMETOLOGY METHOD 11/03/2024 12:44 [facility] MCH 31.9 27.0 - 32.0 pcg LAB HEMETOLOGY METHOD 11/03/2024 12:[address] [facility] MCHC 30.2(L) 32.0 - 37.0 g/dL LAB HEMETOLOGY METHOD 11/03/2024 12:[address] [facility] RDW 15.0 11.0 - 15.0 % LAB HEMETOLOGY METHOD 11/03/2024 12:[address] [facility] LAB Platelets 224 130 - 400 K/mcL LAB HEMETOLOGY METHOD 11/03/2024 12:[address] [facility] MPV 9.0 7.0 - 11.0 FL LAB HEMETOLOGY METHOD 11/03/2024 12:[address] [facility] NRBC 0.0 <1.0 % LAB HEMETOLOGY METHOD 11/03/2024 12:[address] [facility] NRBC Absolute 0.00 <0.10 K/mcL LAB HEMETOLOGY METHOD 11/03/2024 12:[address] [facility] LAB Blood Venous blood specimen / Unknown Venipuncture / Unknown 11/03/2024 5:09 AM EDT 11/03/2024 12:27 PM EDT us Michael Allen MD LAB BLOOD ORDERABLES Final Resu lt [facility] [address] [place] [address], documented in this encounter Visit Diagnoses Diagnosis Diverticulitis of small intestine with perforation and abscess without bleeding documented in this encounter Care Teams Line Cook Relationship Specialty Start Date End Date Wendy Mathis DO [address] [facility] 2 [place] [address] PCP - General Family Medicine 05/31/17 documented as of this encounter
--- OUTSIDE RECORDS SUMMARY | 2025-02-26 12:51 | XMS_ITS | Encounter Summary ---
Author Organization [facility] Address [address] [place] [address] Care Team Providers Care Lapel Padder Name Role Phone Wendy Mathis DO Primary Care Provider + Encounter Details Date Type Department Care Team (Latest Contact Info) Description 11/14/2024 Lab Requisition [facility] - Main Lab 299 [facility] [place] [address] Michael Allen MD [address] [place] [address] Diverticulitis of intestine, part unspecified, [...] LAB HEMETOLOGY METHOD 11/15/2024 11:37 AM EDT [facility] RBC 3.10(L) 3.80 - 4.80 M/mcL LAB HEMETOLOGY METHOD 11/15/2024 11:37 AM [facility] LAB Hemoglobin 9.8(L) 11.5 - 16.0 g/dL LAB HEMETOLOGY METHOD 11/15/2024 11:37 AM [facility] LAB Hematocrit 32.0(L) 35.0 - 47.0 % LAB HEMETOLOGY METHOD 11/15/2024 11:37 AM [facility] LAB MCV 102.9(H) 79.0 - 98.0 FL LAB HEMETOLOGY METHOD 11/15/2024 11:37 AM [facility] LAB MCH 31.5 27.0 - 32.0 pcg LAB HEMETOLOGY METHOD 11/15/2024 11:37 AM [facility] LAB MCHC 30.6(L) 32.0 - 37.0 g/dL LAB HEMETOLOGY METHOD 11/15/2024 11:37 AM [facility] LAB RDW 14.8 11.0 - 15.0 % LAB HEMETOLOGY METHOD 11/15/2024 11:37 AM [facility] LAB Platelets 139 130 - 400 K/mcL LAB HEMETOLOGY METHOD 11/15/2024 11:37 AM [facility] LAB MPV 9.3 7.0 - 11.0 FL LAB HEMETOLOGY METHOD 11/15/2024 11:37 AM [facility] LAB NRBC 0.0 <1.0 % LAB HEMETOLOGY METHOD 11/15/2024 11:37 AM [facility] LAB NRBC Absolute 0.00 <0.10 K/mcL LAB HEMETOLOGY METHOD 11/15/2024 11:37 AM [facility] LAB Blood Venous blood specimen / Unknown Venipuncture / Unknown 11/15/2024 5:31 AM EDT 11/15/2024 11:24 AM EDT us Michael Allen MD LAB BLOOD ORDERABLES Final Resu lt [facility] LAB [address] [place] [address], [place] [phone] * Basic metabolic panel (11/15/2024 5:31 AM EDT) Sodium 138 133 - 145 mmol/L LAB CHEMISTRY METHOD 11/15/2024 12:11 PM [facility] LAB Potassium 4.0 3.5 - 5.5 mmol/L LAB CHEMISTRY METHOD 11/15/2024 12:11 PM [facility] LAB Chloride 103 96 - 110 mmol/L LAB CHEMISTRY METHOD 11/15/2024 12:11 PM [facility] LAB CO2 29 21 - 32 mmol/L LAB CHEMISTRY METHOD 11/15/2024 12:11 PM [facility] LAB Anion Gap 6 3 - 11 LAB CHEMISTRY METHOD 11/15/2024 12:11 PM [facility] LAB Glucose 70 70 - 100 mg/dL LAB CHEMISTRY METHOD 11/15/2024 12:11 PM [facility] LAB BUN 22 5 - 25 mg/dL LAB CHEMISTRY METHOD 11/15/2024 12:11 PM [facility] LAB Creatinine 0.74 0.50 - 1.10 mg/dL LAB CHEMISTRY METHOD 11/15/2024 12:11 PM [facility] LAB eGFR 82 >=60 mL/min/1. 73m2 LAB CHEMISTRY METHOD 11/15/2024 12:11 PM [facility] LAB Comment:Calculation based on the Chronic Kidney Disease Epidemiology Collaboration (CKD-EPI) equation refit without adjustment for race. BUN/Creatinine Ratio 29.7 LAB CHEMISTRY METHOD 11/15/2024 12:11 PM [facility] LAB Calcium 8.8 8.5 - 10.5 mg/dL LAB CHEMISTRY METHOD 11/15/2024 12:11 PM EDT [facility] LAB Blood Venous blood specimen / Unknown Venipuncture / Unknown 11/15/2024 5:31 AM EDT 11/15/2024 11:24 AM EDT us Michael Allen MD LAB BLOOD ORDERABLES Final Resu lt [facility] LAB [address] [place] [address], documented in this encounter Visit Diagnoses Diagnosis Diverticulitis of intestine, part unspecified, without perforation or abscess without bleeding documented in this encounter Care Teams Lapel Padder Relationship Specialty Start Date End Date Wendy Mathis DO [address] [address] PCP - General Family Medicine 05/31/17 documented as of this encounter
--- OUTSIDE RECORDS SUMMARY | 2025-02-26 12:51 | XMS_ITS | Encounter Summary ---
Author Organization [facility] Address [address] [place] [address] Care Team Providers Care Nursing Home Assistant Name Role Phone Wendy Mathis DO Primary Care Provider + Encounter Details Date Type Department Care Team (Latest Contact Info) Description 11/07/[address] [facility] - Main Lab 299 [facility] [place] [address] Michael Allen MD [address] [place] [address] Diverticulitis of intestine, part unspecified, [...] AM EDT) WBC 5.9 4.8 - 10.8 K/[facility] LAB HEMETOLOGY METHOD 11/08/2024 8:37 AM EDT [facility] RBC 3.10(L) 3.80 - 4.80 M/mcL LAB HEMETOLOGY METHOD 11/08/2024 8:37 AM [facility] LAB Hemoglobin 9.8(L) 11.5 - 16.0 g/dL LAB HEMETOLOGY METHOD 11/08/2024 8:37 AM [facility] LAB Hematocrit 31.3(L) 35.0 - 47.0 % LAB HEMETOLOGY METHOD 11/08/2024 8:37 AM [facility] LAB MCV 101.6(H) 79.0 - 98.0 FL LAB HEMETOLOGY METHOD 11/08/2024 8:37 AM [facility] LAB MCH 31.8 27.0 - 32.0 pcg LAB HEMETOLOGY METHOD 11/08/2024 8:37 AM [facility] LAB MCHC 31.3(L) 32.0 - 37.0 g/dL LAB HEMETOLOGY METHOD 11/08/2024 8:37 AM [facility] LAB RDW 14.8 11.0 - 15.0 % LAB HEMETOLOGY METHOD 11/08/2024 8:37 AM [facility] LAB Platelets 122(L) 130 - 400 K/mcL LAB HEMETOLOGY METHOD 11/08/2024 8:37 AM [facility] LAB MPV 9.1 7.0 - 11.0 FL LAB HEMETOLOGY METHOD 11/08/2024 8:37 AM [facility] LAB NRBC 0.0 <1.0 % LAB HEMETOLOGY METHOD 11/08/2024 8:37 AM [facility] LAB NRBC Absolute 0.00 <0.10 K/mcL LAB HEMETOLOGY METHOD 11/08/2024 8:37 AM [facility] LAB Blood Venous blood specimen / Unknown Venipuncture / Unknown 11/08/2024 5:03 AM EDT 11/08/2024 7:41 AM EDT us Michael Allen MD LAB BLOOD ORDERABLES Final Resu lt [facility] [address] [place] [address], [place] [phone] * Basic metabolic panel (11/08/2024 5:03 AM EDT) Pathologist [facility] Sodium 138 133 - 145 mmol/L LAB CHEMISTRY METHOD 11/08/2024 9:10 AM [facility] Potassium 4.0 3.5 - 5.5 mmol/L LAB CHEMISTRY METHOD 11/08/2024 9:10 AM [facility] LAB Chloride 105 96 - 110 mmol/L LAB CHEMISTRY METHOD 11/08/2024 9:10 AM [facility] LAB CO2 28 21 - 32 mmol/L LAB CHEMISTRY METHOD 11/08/2024 9:10 AM [facility] LAB Anion Gap 5 3 - 11 LAB CHEMISTRY METHOD 11/08/2024 9:10 AM [facility] LAB Glucose 90 70 - 100 mg/dL LAB CHEMISTRY METHOD 11/08/2024 9:10 AM [facility] BUN 24 5 - 25 mg/dL LAB CHEMISTRY METHOD 11/08/2024 9:10 AM [facility] LAB Creatinine 0.77 0.50 - 1.10 mg/dL LAB CHEMISTRY METHOD 11/08/2024 9:10 AM [facility] LAB eGFR 78 >=60 mL/min/1. 73m2 LAB CHEMISTRY METHOD 11/08/2024 9:10 AM [facility] LAB Comment:Calculation based on the Chronic Kidney Disease Epidemiology Collaboration (CKD-EPI) equation refit without adjustment for race. BUN/Creatinine Ratio 31.2 LAB CHEMISTRY METHOD 11/08/2024 9:10 AM EDT [facility] Calcium 8.9 8.5 - 10.5 mg/dL LAB CHEMISTRY METHOD 11/08/2024 9:10 AM EDT [facility] ([facility]) [facility] LAB Blood Venous blood specimen / Unknown Venipuncture / Unknown 11/08/2024 5:03 AM EDT 11/08/2024 7:41 AM EDT us Michael Allen MD LAB BLOOD ORDERABLES Final Resu lt [facility] ([facility]) [facility] [address] [place] [address], documented in this encounter Visit Diagnoses Diagnosis Diverticulitis of intestine, part unspecified, without perforation or abscess without bleeding documented in this encounter Care Teams Nursing Home Assistant Relationship Specialty Start Date End Date Wendy Mathis DO [address] [address] PCP - General Family Medicine 05/31/17 documented as of this encounter
--- OUTSIDE RECORDS SUMMARY | 2025-02-26 12:51 | XMS_ITS ---
Author Organization [facility] Address [address] [facility] [address] [place] [address] Phone Care Team Providers Care Rn Diabetes Name Role Phone Kala Lundberg MD Primary Care Provider Adolfo Raymundo Unavailable Maria A Bolivar CONTRACT MANAGEMENT SPECIALIST Unavailable Dejah Shepard LUMBER PILER OPERATOR Unavailable Crista Cummings STREET DEPARTMENT DISPATCHER Unavailable Active Problems Problem Noted Date Diagnosed Date Hypothyroidism 01/31/2025 GERD (gastroesophageal reflux disease) Cholelithiasis 01/31/2025 Diverticulosis of sigmoid colon 01/31/2025 Inflammatory arthritis 01/31/2025 Anal cancer 06/28/2024 Cancer Staging:Clinical stage from [...] me to participate in this patient's care Essential (primary) hypertension 07/07/2022 Stage 3 chronic kidney disease 06/29/2021 Chronic obstructive pulmonary disease 06/29/2021 Paroxysmal atrial fibrillation 06/29/2021 Pure hypercholesterolemia 06/29/2021 Renal osteodystrophy 06/29/2021 Current Treatment and Therapy Plans ACCESS AND [...]
--- OUTSIDE RECORDS SUMMARY | 2025-02-26 12:51 | XMS_ITS | Encounter Summary ---
Author Organization [facility] Address [address] [facility] [address] [place] [address] Phone Care Team Providers Care Pulling Machine Operator Name Role Phone Kala Lundberg MD Primary Care Provider Adolfo Raymundo MBBS Unavailable Maria A Bolivar INFORMATION SECURITY ARCHITECT Unavailable Dejah Shepard CARPENTER REPAIR Unavailable Crista Cummings SUPERINTENDENT LANDFILL OPERATIONS Unavailable Encounter Details Date Type Department Care Team (Late st Contact Info) Description 10/25/2024 Procedure Pass [facility], Ct Scan - [address] [id number] Social History Tobacco Use Types Packs/Day Years [...] st Contact Info) Description 12/06/2024 Procedure Pass [address] [address] 12/06/2024 Procedure Pass [address] [address] 03/07/2025 3:15 PM EST Appointment [address] [address] Crista Cummings CNP [address] [place] [address] 03/18/2025 3:00 PM EST Office Visit [facility] at [address] [address] Adolfo Raymundo MBBS [address] [place] [address] [email or web address] 05/22/2025 3:40 PM EST Office Visit [facility] [address] 3rd Floor, [address] [place] [address] Scott Osuna MD [address] [place] [address] 06/12/2025 1:30 PM EST Office Visit [facility] At [facility] Rad Onc [address] [place] [address] Chantell Villarreal MD [address] [place] [address] documented as of this encounter Visit Diagnoses Not on filedocumented in this encounter Care Teams Pulling Machine Operator Relationship Specialty Start Date End Date Kala Lundberg MD [address] [place] [address] PCP - General Internal Medicine 06/22/24 Adolfo Raymundo MBBS [address] [place] [address] [email or web address] Medical Oncology 07/02/24 Maria A Bolivar FNP [address] [place] [address] [email or web address] Nurse Practitioner Medical Oncology 07/18/24 Dejah Shepard NP [address] [place] [address] [email or web address] Nurse Practitioner 08/14/24 Crista Cummings CNP [address] [place] [address] [email or web address] Nurse Practitioner 11/29/24 documented as of this encounter Additional Source Comments The information contained in this document represents components of the legal health record. It is not the complete legal health record.[facility]
--- OUTSIDE RECORDS SUMMARY | 2025-02-26 12:52 | XMS_ITS | Clinical Summary ---
Author Organization [facility] Address [address] [facility] [address] [place] [address] Phone Care Team Providers Care Power Electronics Research Engineer Name Role Phone Kala Lundberg MD Primary Care Provider Adolfo Raymundo MBBS Unavailable Maria A Bolivar MELT SUPERINTENDANT Unavailable Dejah Shepard GANTRY CRANE OPERATOR Unavailable Crista Cummings PERSONNEL SUPERVISOR Unavailable Allergies Active Allergy Reactions Criticality Noted Date Comments Sulfamethoxazole-Trimeth oprim Hepatotoxicity 08/27/2024 Increased LFTs, nausea, itching per PCP office Nitrofurantoin 06/22/2024 Facial swelling Yqsooya-Exj-Ihh Reductase Inhibitors Other (See Comments) 06/29/2021 atorovastatin Tetracyclines Itching,Rash Low 11/30/2016 Medications ELIQUIS 5 mg tablet Active dilTIAZem (DILT-XR) 120 MG 24 hr capsule Active flecainide (TAMBOCOR) 50 MG tablet Active omeprazole (PRILOSEC) 20 MG capsule Active levothyroxine (SYNTHROID, LEVOTHROID) 75 MCG tablet [...] related pain, partial fill ok 56 tablet 5 Active predniSONE (DELTASONE) 5 MG tablet Take 5 mg by mouth daily. Currently taking 2 tablets once daily for 7 days, last day December 07, then to reduce to one tablet daily 5 Active Active Problems Problem Noted Date Diagnosed [...] 06/29/2021 Pure hypercholesterolemia 06/29/2021 Renal osteodystrophy 06/29/2021 Encounters Date Type Department Care Team Description 02/08/2025 Telephone [facility] at [address] [address] Adolfo Raymundo MBBS r/s apt 02/01/2025 Telephone [facility] At [facility] Rad Onc [address] [place] [address] Debbie López RN 12/13/2024 11:30 AM EDT Office Visit [facility] At [facility] Rad [address] [address] Chantell Villarreal MD Anal cancer (Primary Dx) 12/06/2024 2:30 PM EDT Office Visit [facility] at [address] [address] Crista Cummings CNP Anal cancer (Primary Dx); Weight loss; Lung nodule; Dehydration; Anemia, unspecified type 12/06/2024 Telephone [facility] at [address] [address] Crista Cummings CNP 11/30/2024 Telephone [facility] at [address] [address] Adolfo Raymundo MBBS 11/27/2024 Telephone [facility] at [address] [address] Crista Cummings CNP from Last 3 Months Immunizations Immunization Administration [...] st Contact Info) Description 12/06/2024 Procedure Pass [address] [address] 12/06/2024 Procedure Pass [address] [address] 03/07/2025 3:15 PM EST Appointment [address] [address] Crista Cummings CNP [address] [place] [address] 03/18/2025 3:00 PM EST Office Visit [facility] at [address] [address] Adolfo Raymundo MBBS [address] [place] [address] [email or web address] 05/22/2025 3:40 PM EST Office Visit [facility] [address] [place] [address] 3rd Floor, [address] [place] [address] Scott Osuna MD [address] [place] [address] 06/12/2025 1:30 PM EST Office Visit [facility] At [facility] Rad Onc [address] [place] [address] Chantell Villarreal MD [address] [place] [address] Health Maintenance Due Date Last Done Comments TSH LEVEL 1944 DEPRESSION SCREENING 1956 SMOKING Hx and SMOKELESS TOBACCO SCREENING 1957 OSTEOPOROSIS SCREENING INITIAL (ONE-TIME) 2009 LIPID PANEL 09/11/2009 09/11/2004 INFLUENZA VACCINE (#1) 2024 , 01/03/2023, 12/31/2021, Additional history exists COVID-19 VACCINE ( season) 2024 01/07/2024, 03/02/2023, 12/31/2021, Additional history exists BLOOD PRESSURE 06/08/2025 12/06/2024 CREATININE LEVEL 11/20/2025 11/20/2024, , 08/13/2024, Additional [...] Procedure Name Priority Date/Time Associated Diagnosis Comments OUTSIDE PATHOLOGY 12/26/2024 OUTSIDE IMAGING 12/26/2024 COMPREHENSIVE METABOLIC PANEL (CMP) Routine 11/20/2024 2:11 PM EDT Anal cancer from Last 3 Months or Most Recently Relevant to Health Maintenance Results * Outside Imaging Report Only (12/26/2024) us Scanning Interface Provider IMG XR CHEST Inna l Result * Outside Pathology (12/26/2024) us Scanning Interface Provider PATHOLOGY ORDERABLES Final Result * (ABNORMAL) Comprehensive metabolic panel (11/20/2024 2:11 PM EDT) SODIUM 137 133 - 146 mmol/L [facility] POTASSIUM 5.1 3.3 - 5.1 mmol/L [facility] CHLORIDE 99 96 - 108 mmol/L [facility] CO2 24 21 - 35 mmol/L [facility] BUN 20(H) 6 - 19 mg/dL [facility] CREATININE 1.30 0.5 - 1.5 mg/dL [facility] GLUCOSE 122(H) 70 - 99 mg/dL [facility] ALBUMIN 3.5(L) 3.9 - 4.8 g/dL [facility] TOTAL PROTEIN 6.8 6.5 - 8.0 g/dL [facility] CALCIUM 8.9 8.4 - 10.3 mg/dL [facility] ALKALINE PHOSPHATASE 111 39 - 117 U/L [facility] TOTAL BILIRUBIN 0.4 0.0 - 1.2 mg/dL [facility] AST 12 0 - 37 U/L [facility] ALT 15 0 - 40 U/L [facility] GLOBULIN 3.3 1 - 4.8 g/dL [facility] EGFR 42(L) >59 mL/min/1.7 3m2 [facility] Comment:Estimated glomerular filtration rate calculated using the CKD-EPI refit equation. ANION GAP 19 10 - 20 mmol/L [facility] Blood 11/20/2024 2:11 PM EDT 11/20/2024 2:13 PM EDT us Crista Cummings CNP LAB BLOOD BKR ORDERABLES Final R esult Performing Organization Address City/State/[facility] Co de Phone Number [address] [address] from Last 3 Months or Most Recently Relevant to Health Maintenance Insurance MEDICARE PART A & B [facility] MEDICARE PART A & B [facility] MEDICARE PART A & B Member Subscriber Plan / Payer (Ef fective 2009-Present) Name:Raquel Nicholas Member ID:[id number] Relation to Subscriber:Self Name:Raquel Nicholas Subscriber ID:[id number] Payer ID:[id number] Group ID:Not on file Type:Medicare Address: [facility] [employer] [address] [place] [address] MEDICARE PART A & B MEDICARE PART A & B Member Subscriber Plan / Payer (Ef fective 2009-Present) Name:Raquel Nicholas Member ID:[id number] Relation to Subscriber:Self Name:Raqule Nicholas Subscriber ID:[id number] Payer ID:[id number] Group ID:Not on file Type:Medicare Address: [facility] [employer] [address] [place] [address] MEDICARE PART A & B MEDICARE PART A & B MEDICARE PART A & B Member Subscriber Plan / Payer (Ef fective 2009-Present) Name:Raquel Nicholas Member ID:[id number] Relation to Subscriber:Self Name:Raquel Nicholas Subscriber ID:[id number] Payer ID:[id number] Group ID:Not on file Type:Medicare Address: [facility] [employer] [address] [place] [address] [facility] MEDICARE PART A & B [facility] Advance Directives For more information, please contact: [phone] (9AM - 5PM [facility], Tuesday-Tuesday) Documents on File Type Date Recorded Patient Salad Maker Expl anation Healthcare Proxy 07/17/2024 3:09 PM [facility] Care Proxy Care Teams Power Electronics Research Engineer Relationship Specialty Start Date End Date Kala Lundberg MD [facility] [place] [address] PCP - General Internal Medicine 06/22/24 Adolfo Raymundo MBBS [facility] [address] [place] [email or web address] Medical Oncology 07/02/24 Maria A Bolivar FNP [address] [place] [address] [email or web address] Nurse Practitioner Medical Oncology 07/18/24 Dejah Shepard NP [address] [place] [address] Nurse Practitioner 08/14/24 Crista Cummings CNP [address] [place] [address] Nurse Practitioner 11/29/24 Additional Source Comments The information contained in this document represents components of the legal health record. It is not the complete legal health record.[facility]
--- OUTSIDE RECORDS SUMMARY | 2025-02-26 12:52 | XMS_ITS | Encounter Summary ---
Author Organization [facility] Address [address] [facility] [address] [place] [address] Phone Care Team Providers Care Medical Concierge Name Role Phone Kala Lundberg MD Primary Care Provider Adolfo Raymundo MBBS Unavailable Maria A Bolivar POT FILLER Unavailable Dejah Shepard BAND SAW MARKER Unavailable EmilianoDamasoen CUSTOMER SERVICE CLERK Unavailable Reason for Visit * Reason Onset Date Comments check in with pt's 08/01/2024 Encounter Details Date Type Department Care Team (Late st Contact Info) Description 08/01/2024 Telephone [facility] Cancer [facility] At [facility] Rad Onc [address] [place] [address] [phone] Chantell Villarreal MD [address] [place] [address] [phone] [email or web address] check in with pt's Social History Tobacco [...] st Contact Info) Description 12/06/2024 Procedure Pass [address] [address] 12/06/2024 Procedure Pass [address] [address] 03/07/2025 3:15 PM EST Appointment [address] [address] Crista Cummings, MANJINDER [address] [place] [address] [email or web address] 03/18/2025 3:00 PM EST Office Visit [facility] at [address] [address] Adolfo Raymundo MBBS [address] [place] [address] [email or web address] 05/22/2025 3:40 PM EST Office Visit [facility] [address] Floor, [address] [place] [address] Scott Osuna MD [address] [place] [address] 06/12/2025 1:30 PM EST Office Visit [facility] At [facility] Rad Onc [address] [place] [address] Chantell Villarreal MD [address] [place] [address] [email or web address] documented as of this encounter Visit Diagnoses Not on filedocumented in this encounter Care Teams Medical Concierge Relationship Specialty Start Date End Date Kala Lundberg MD [facility] [place] [address] PCP - General Internal Medicine 06/22/24 Adolfo Raymundo MBBS [facility] [place] [address] [email or web address] Medical Oncology 07/02/24 Maria A Bolivar FNP [address] [place] [address] [email or web address] Nurse Practitioner Medical Oncology 07/18/24 Dejah Shepard NP [address] [place] [address] [email or web address] Nurse Practitioner 08/14/24 Crista Cummings CNP [address] [place] [address] [email or web address] Nurse Practitioner 11/29/24 documented as of this encounter Additional Source Comments The information contained in this document represents components of the legal health record. It is not the complete legal health record.[facility]
--- OUTSIDE RECORDS SUMMARY | 2025-02-26 12:52 | XMS_ITS | Encounter Summary ---
Author Organization [facility] Address [address] [employer] [facility] [address] [place] [address] Phone Care Team Providers Care Barbering Teacher Name Role Phone Kala Lundberg MD Primary Care Provider Adolfo Raymundo MBBS Unavailable Maria A Bolivar TEST CONDUCTOR Unavailable Dejah Shepard ASSEMBLER CAMPER Unavailable Crista Cummings DRAWER IN PLAIN LOOM Unavailable Encounter Details Date Type Department Care Team (Late st Contact Info) Description 10/25/2024 Procedure Pass [facility], Ct Scan - [address] [id number] Social History Tobacco Use Types Packs/Day Years [...] st Contact Info) Description 12/06/2024 Procedure Pass [address] [address] 12/06/2024 Procedure Pass [address] [address] 03/07/2025 3:15 PM EST Appointment [address] [address] Crista Cummings CNP [address] [place] [address] 03/18/2025 3:00 PM EST Office Visit [facility] at [address] [address] Adolfo Raymundo MBBS [address] [place] [address] [email or web address] 05/22/2025 3:40 PM EST Office Visit [facility] [address] 3[address] Floor, [address] [place] [address] Scott Osuna MD [address] [place] [address] 06/12/2025 1:30 PM EST Office Visit [facility] At [facility] Rad Onc [address] [place] [address] Chantell Villarreal MD [address] [place] [address] documented as of this encounter Visit Diagnoses Not on filedocumented in this encounter Care Teams Barbering Teacher Relationship Specialty Start Date End Date Kala Lundberg MD [address] [place] [address] PCP - General Internal Medicine 06/22/24 Adolfo Raymundo MBBS [address] [place] [address] [email or web address] Medical Oncology 07/02/24 Maria A Bolivar FNP [address] [place] [address] [email or web address] Nurse Practitioner Medical Oncology 07/18/24 Dejah Shepard NP [address] [place] [address] [email or web address] Nurse Practitioner 08/14/24 Crista Cummings CNP [address] [place] [address] [email or web address] Nurse Practitioner 11/29/24 documented as of this encounter Additional Source Comments The information contained in this document represents components of the legal health record. It is not the complete legal health record.[facility]
== END 2025-02-26 11:48 | disposition home or self-care (01) ==
LOC: HO.HMCC 10:45
PROVIDERS: PCP Internal Medicine; Visit Provider Internal Medicine
DX: Z00.00 Encounter for general adult medical examination without abnormal findings (principal); K50.90 Crohn's disease, unspecified, without complications; C21.0 Malignant neoplasm of anus, unspecified; I48.0 Paroxysmal atrial fibrillation; E78.5 Hyperlipidemia, unspecified; E03.9 Hypothyroidism, unspecified; M81.0 Age-related osteoporosis without current pathological fracture; Z71.89 Other specified counseling

== ENCOUNTER → 2025-02-26 10:45 | Outpatient (BNVA) | payer MEDICARE, BC, SELFPAY | PROVIDERS: PCP Internal Medicine; Visit Provider Internal Medicine | DX: Z13.31 Encounter for screening for depression (principal) | CPT/HCPCS: 96127 ==

== ENCOUNTER 2025-03-26 12:52 | Inpatient (IN) | payer MEDICARE, BC, SELFPAY ==
--- NOTE | ~2025-03-26 | CT_ITS ---
EXAMINATION: CT ABDOMEN PELVIS WITHOUT IV CONTRAST HISTORY: abdominal pain, hx of anal cancer and colitis COMPARISON: Previous CT scans most recent February 01, 2025 TECHNIQUE: CT scan of the abdomen and pelvis was performed without contrast using standard departmental protocol. Coronal and sagittal reformatted images were generated and reviewed. This CT exam was performed with one or more of the following dose reduction techniques: automated exposure control, adjustment of the mA and/or kV according to patient size, use of iterative reconstruction technique. DLP: 536 mGy-cm FINDINGS: LOWER CHEST: The visualized lung bases are clear. There is no pleural effusion. CARDIOVASCULATURE: The heart is normal in size. There is no pericardial effusion. LIVER: The liver is normal in size and contour. The liver has an unremarkable unenhanced appearance. GALLBLADDER / BILE DUCTS: Small gallstone in the gallbladder. Gallbladder otherwise normal. There is no intra or extrahepatic biliary ductal dilatation. SPLEEN: The spleen is normal in size and has an unremarkable unenhanced appearance. PANCREAS: The pancreas has an unremarkable unenhanced appearance. ADRENAL GLANDS: Unremarkable. KIDNEYS/RETROPERITONEUM: 2 1 cm low-attenuation lesions in the upper pole of the right kidney similar to previous exam compatible with cysts. 6 mm high attenuation lesion exophytic to the upper pole of the left kidney axial image 16 series 3. Hounsfield units are higher than that of a simple cyst. It is it is uncertain whether this represents a complex cyst or solid lesion. A 6 mm high attenuation lesion exophytic to the lateral lower pole of the left kidney suggestive of a hyperdense cyst.. No renal calculi are identified. There is no hydronephrosis. LYMPH NODES: Retroperitoneal lymph nodes are unchanged. Largest lymph nodes are all left periaortic lymph node measuring 7 mm in short axis axial image 25 and 5 mm in short axis axial image 33, right common iliac lymph node measuring 6 mm in short axis axial image 40 and right external iliac lymph node measuring 8 mm in short axis axial image 55 series 3. These do not appear appreciably changed. VASCULATURE: Atherosclerotic disease. No aneurysm. MESENTERY/PERITONEUM: Trace fluid in the left paracolic gutter. No masses. There is no free intraperitoneal gas. STOMACH: Underdistended. SMALL BOWEL: The small bowel is normal in caliber. COLON: Diffuse circumferential wall thickening of the lower rectum and anus. This may be slightly increased from previous exam. Diffuse differential wall thickening of the left colon and sigmoid colon. This appears slightly increased in the distal left/proximal sigmoid colon with interval increase in surrounding fat stranding and new small amount of fluid. There is severe constipation. The proximal colon is slightly dilated suggestive of mild secondary obstruction. Proximal colon measures up to 6 cm. This is similar to this recent January 2025 exam. URINARY BLADDER/PELVIC ORGANS: The urinary bladder is unremarkable. Uterus and adnexa are unremarkable. No pelvic mass. BONES / SOFT TISSUES: Severe demineralization. Transitional anatomy with 6 lumbar type vertebral bodies. Levels designated to match the prior dictation with the first nonrib-bearing vertebral body designated as L1 and the most inferior lumbar type vertebral body designated as the transitional segment. Mild L3 and L4 inferior endplate vertebral body compression fractures similar to prior exam. Mild compression fracture of the superior endplate of the L2 vertebral body that is new or increased from previous exam. Small sclerotic lesion in the right inferior L2 vertebral body unchanged. Question new or increasing sclerotic lesion in the right superior endplate of the L2 vertebral body for example axial image 55 series 7 versus changes related to the fracture. Mild anterior subluxation of L5 with respect to the transitional segment unchanged. Multilevel degenerative spondylosis and facet arthritis. Degenerative changes at the hip joints. Diffuse subcutaneous edema in the pelvis. CT/CT abdomen pelvis wo IV con IMPRESSION: Severe distal colitis, proctitis and wall thickening of the anus slightly increased from most recent February 01, 2025 exam. Severe constipation and dilatation of the more proximal colon suggestive of mild secondary obstruction. This does not appear changed. Bilateral renal cysts. Subcentimeter lesion exophytic to the upper pole of the left kidney not compatible with a simple cyst. It is uncertain whether this represents a complex cyst or solid lesion. Left renal hyperdense and low attenuation right renal cysts. Small gallstone in the gallbladder. Transitional lumbar anatomy. New mild superior endplate upper lumbar vertebral body compression fracture designated as L2 and superior endplate L3 and L4 compression fractures unchanged. Electronically signed by: Kaya Gayle MD 03/26/2025 05:07 PM [facility] [place]
--- NOTE | ~2025-03-26 | CT_ITS ---
EXAMINATION: CT ABDOMEN AND PELVIS WITH CONTRAST CLINICAL INFORMATION: Follow-up proctocolitis COMPARISON: 03/26/2025 and 02/01/2025 TECHNIQUE: Multidetector volumetric images were obtained from the superior aspect of the liver through the pubic symphysis following administration 85 mL of Omnipaque 350 intravenous contrast. Sagittal and coronal reformatted images were obtained on the technologist's workstation. Oral contrast: No This CT examination was performed using dose optimization techniques as appropriate, variously including the following: *Automated exposure control *Adjustment of mA and/or kV according to patient size (this includes techniques or standardized protocols for targeted exams where dose is matched to indication/reason for exam; i.e. extremities or head) *Use of iterative reconstruction technique FINDINGS: LUNG BASES: The visualized lung bases are unremarkable. LIVER, GALLBLADDER, AND BILIARY TREE: There is mild intrahepatic biliary ductal dilation. The gallbladder is distended measuring up to 5.6 cm diameter. There is no gallbladder wall thickening. Calcified stone is present in the gallbladder. There is trace pericholecystic fluid anteromedially. PANCREAS: Pancreas is subjectively small but otherwise unremarkable. SPLEEN: Unremarkable. ADRENAL GLANDS: Unremarkable. KIDNEYS AND URETERS: Simple renal cysts are present bilaterally. Kidneys are borderline small with mild renal cortical thinning. There are no stones and no hydronephrosis. BLADDER: Unremarkable. GASTROINTESTINAL TRACT: The stomach and small bowel are decompressed. The right, transverse, and descending colon is distended with stool, fluid, and gas. There is mild wall thickening and hyperenhancement of the mucosa in the right colon and proximal half of the transverse colon. There are mild patchy areas of hyperenhancement in the region of the splenic flexure and proximal descending colon. There is persistent thickening of the rectosigmoid colon. There is a small amount of ascites, increased since the prior. ABDOMINAL WALL: Mild diffuse subcutaneous soft tissue edema is present. LYMPH NODES: Normal. VASCULAR: Multifocal atherosclerotic calcific lesions are present. PELVIC VISCERA: Unremarkable. OSSEOUS STRUCTURES: Again seen are numerous compression fractures are unchanged involving T12, L1, L2, L3, and L4. There is severe degenerative changes involving the pubic symphysis joint and moderate degenerative change in the right hip and severe degenerative changes in the left hip. CT/CT abdomen pelvis w IV con IMPRESSION: Persistent bowel wall thickening in the rectum and sigmoid colon. There is new hyperenhancement and possible mild thickening in the right colon and proximal transverse colon. There is mildly increased ascites. Differential considerations include infection, ischemia, inflammatory bowel disease and stercoral colitis. Possible gallbladder hydrops: The gallbladder is mildly distended measuring 5.6 cm short axis. There is mild intrahepatic biliary ductal dilation. There is also focal pericholecystic fluid along the anteromedial aspect of the bladder that may be unrelated as there is free fluid/ascites in other locations as well. Also, there is cholelithiasis. Changes could be related to prolonged n.p.o. status. If clinically indicated, consider gallbladder ultrasound. Borderline small kidneys with mild renal cortical thinning. Numerous compression fractures between T12-L4. Fleischner guidelines were followed. Electronically signed by: Maico Encinas MD 03/29/2025 11:22 AM [facility]
--- NOTE | ~2025-03-26 | US_ITS ---
EXAMINATION: US ABDOMEN LIMITED CLINICAL INFORMATION: Evaluate gallbladder and biliary tree. Abdominal pain. COMPARISON: None. Correlation made with CT abdomen and pelvis dated same day. TECHNIQUE: Real-time imaging of the right upper quadrant abdominal viscera. FINDINGS: GALLBLADDER: Gallbladder is distended, and demonstrates small shadowing intraluminal mobile gallstones. There is some associated layering echogenic biliary sludge. No gallbladder wall thickening. No pericholecystic fluid. There was a negative sonographic Becker's sign. COMMON BILE DUCT: Normal in caliber measuring 2.4 cm in diameter. FREE FLUID: None. US/US abdomen limited IMPRESSION: 1. Mild gallbladder distention. There are intraluminal small layering gallstones with layering biliary sludge. There is no evidence of gallbladder wall thickening, or pericholecystic fluid collection. Technologist reports a negative sonographic Becker's sign. 2. No biliary ductal dilatation. Electronically signed by: Julio Cesar Dey MD 03/29/2025 02:31 PM [facility] [place]
[2025-03-26 12:57] VITALS: BP 122/63; PULSE 107; RESP 20; TEMP 36.3; O2SAT 98; BMI 20.2
--- NOTE | 2025-03-26 13:07 | ED.ABDPAIN ---
HPI - Abdominal Pain General Chief Complaint: Abdominal Pain Stated Complaint: abd pain Time Seen by Provider: 03/26/25 14:46 Source: patient Mode of arrival: ambulatory Limitations: no limitations History of Present Illness ED Provider: HPI narrative: 79-year-old female history of colon cancer s/p chemo and radiation therapy presented for evaluation of left lower abdominal pain, presenting with left lower quadrant abdominal pain difficult to state whether this is new, it sounds like this is a chronic issue has had some improvement him on antibiotics and now getting worse again, she has incontinent in his stool, it is liquid, passing gas. Reports history of chemotherapy and radiation therapy Related Data Home Medications ?Medication ?Instructions ?Recorded ?Confirmed apixaban 5 mg tablet (Eliquis) 5 mg PO BID 05/05/20 02/26/25 flecainide 50 mg tablet 75 mg PO BID 09/09/22 02/26/25 Held on 11/02/24. Instructions: Hold until complete course of azithromycin diltiazem HCl 240 mg 240 mg PO DAILY 07/16/24 02/26/25 tablet,extended release 24 hr Previous Rx's ?Medication ?Instructions ?Recorded omeprazole 20 mg capsule,delayed 20 mg PO DAILY@0630 #1 cap 11/02/24 release peg [id number] 1 2 drp ophthalmic (eye) Q4H PRN Dry 11/02/24 %-0.2 %-0.2 % eye drops Eyes #15 mL (Artificial Tears ([id number])) levothyroxine 75 mcg tablet 75 mcg PO DAILY #90 caps 12/22/24 tramadol 50 mg tablet 50 mg PO Q8H PRN pain, severe #40 01/21/25 tabs metronidazole 500 mg tablet 500 mg PO BID 4 days #8 tabs 02/06/25 oxycodone 5 mg tablet 5 mg PO Q6H PRN Pain, Severe (Pain 02/06/25 Scale 7-10) 3 days #12 tabs Allergies Allergy/AdvReac Type Severity Reaction Status Date / Time tetracycline (TETRACYCLINE) Allergy Unknown ITCHINESS, Verified 03/26/25 13:02 rash nitrofurantoin Allergy Swelling Verified 03/26/25 13:02 atorvastatin (Lipitor) AdvReac Unknown Muscle pain Verified 03/26/25 13:02 bactrim Allergy Unknown Elevated Uncoded 02/28/25 13:05 LFTs/Itching/Nausea fentanyl AdvReac Severe Unconscious Uncoded 02/28/25 13:05 Review of Systems Constitutional: Reports as per [facility] Past Medical History Medical History (Updated 03/27/25 @ 00:53 by Simón Dominguez MD) Paroxysmal atrial fibrillation History of Crohn's disease History of radiation exposure History of diverticulitis Anal squamous cell carcinoma Hemorrhoids Current use of intermediate card tender anticoagulation External hemorrhoids Hyperuricemia Vitamin D deficiency Impaired fasting glucose Inflammatory arthritis Multinodular thyroid Mixed stress and urge urinary incontinence Dyslipidemia Osteoporosis COPD (chronic obstructive pulmonary disease) Acquired hypothyroidism Surgical History Hx of colonoscopy S/P partial hysterectomy History of section Family History Family History Father AAA (abdominal aortic aneurysm) CVA (cerebral vascular accident) Mother Diabetes mellitus HTN (hypertension) Gallbladder cancer Sister Diabetes mellitus Son Substance use disorder Son Substance use disorder Social History Social History Household Members: Children Household Members Other:: son Housing: House Housing Other:: [employer] Are you a primary skin care consultant to a significant other at home: No Do you presently have visiting nurse or other home services: No Alcohol intake: current Alcohol intake frequency: does not drink Comment: steady on feet in room Patient Tobacco Use Status: Former Tobacco user Tobacco use type: Cigarette Years Smoked: 20 years Smoked in Last 30 Days: No e-Cigarette/Vaping Use: Never Used Second Hand Smoke Exposure: No Use of substances other than those prescribed or required for medical reasons: No Substance Use Type: Marijuana Advance Directives: Yes Advance Directives on File: Yes Advance Directives Date on File: 05/30/20 Do you have a plan to hurt others: No Plan service: No Current occupational status: retired Gender identity: Female Cognitive needs: No Hearing needs: No Vision needs: Yes Physical Exam ED Exam Exam: ?General: ??looks age appropriate ?No scleral icterus ?CV: S1-S2 somewhat irregular ?Resp: ?No wheezing rales rhonchi no stridor moving air well Abd: ?Bowel sounds are hypoactive, and quiet, rectal exam with nonbloody loose stool, some perianal irritation MSK: FROM, strength 5/5 all extremities Skin: No jaundice no obvious cellulitic changes ?Neuro: ?Alert and oriented x3, moving upper and lower extremities symmetrically, no obvious facial asymmetry noted, cranial nerves 2-12 intact Vital Signs: Vital Signs - 24 hr 03/26/25 12:57 03/26/25 14:57 03/26/25 17:00 Temperature 97.3 F 98.2 F Pulse Rate 107 H 90 79 Respiratory Rate 20 16 20 Blood Pressure 122/63 139/65 106/52 L Pulse Oximetry 98 100 96 Oxygen Delivery Method Room Air Room Air Room Air 03/26/25 22:11 Temperature 97.7 F Pulse Rate 86 Respiratory Rate 18 Blood Pressure 108/52 L Pulse Oximetry 94 Oxygen Delivery Method Room Air BMI result Body Mass Index 20.2 Course Course Course Narrative: This is a Rapid Medical Examination (RME) performed by Evangelist Ware PA-C in triage. Full HPI, ROS, assessment and treatment plan per primary provider in the Main ED. Hx: 79 yo F here for eval of left lower abd pain x 6 months, worsening. reports hx anal cancer. admits nausea, weight loss. Plan: labs, UA Reevaluation(s) Reevaluation #1: 4:21 PM 03/26/2025 (Samantha Andrade DO): Patient was signed out to me pending a CT imaging and likely admission. Review patient's lab patient does have bandemia of 17%. We will start patient on IV Zosyn. No fever no tachycardia no signs of leukocytosis for the patient. She does not meet SIRS criteria. Patient does not want IV contrast on her CAT scan. Discussed with her that it is recommended to detect cancer or infectious source. Patient does not like the way it makes her feel. Patient is refusing. However she is amenable to CT imaging without contrast. CT imaging shows severe constipation thickening of the anus. The thickening is similar to previous imaging. However concerned about severe constipation. I did give her some lactulose, Mag citrate and MiraLax without any alleviation or constipation. Discuss about her doing a rectal exam to see if there was any rectal impaction. Also we have discussed about enema. However patient refuses rectal exam and enema at this time. Given patient's signs of severe constipation. We will plan to admit the patient to the hospital for whole bowel regimen. Medical Decision Making Medical Decision Making MDM Narrative: 3:22 PM 03/26/2025 (Dr. Dawit Al): Presenting with abdominal pain, history of anal cancer last treatment was on August of 2024, reporting decreased p.o. intake, nausea and lower abdominal pain has been seen here for this in the past has been diagnosed with colitis has been both admitted and discharged on antibiotics, abdominal examination with fairly significant tenderness in the left lower quadrant, and hypoactive bowel sounds, consideration for workup as below, we will initiate management, disposition to be determined Differential Diagnosis Differential Diagnoses: The differential diagnosis associated with the presentation includes (SBO, infectious colitis, ischemic colitis, cellulitis, volvulus) Admission/Observation Consideration of admission/observation: Escalation of care including admission/observation considered Lab Data 03/26/25 13:26 03/26/25 13:26 Labs: Lab Results 03/26/25 03/26/25 Range/Units 13:26 15:29 WBC 8.9 (4.8-10.8) X10*3/uL RBC 4.54 D (4.20-5.50) X10*6/uL Hgb 12.9 D (12.0-16.0) g/dl Hct 40.6 (37.0-47.0) % MCV 89.4 (80.0-98.0) fL MCH 28.4 (27.0-33.0) pg MCHC 31.8 (31.0-35.0) g/dl RDW 14.7 (11.0-16.0) % Plt Count 296 D (160-400) X10*3/uL MPV 8.5 L (9.4-12.3) fL Immature Gran % (Auto) Cancelled Neut % (Auto) Cancelled Lymph % (Auto) Cancelled [place] % (Auto) Cancelled Eos % (Auto) Cancelled Baso % (Auto) Cancelled Lymph # (Auto) Cancelled [place] # (Auto) Cancelled Eos # (Auto) Cancelled Baso # (Auto) Cancelled Abs Immat Gran (auto) Cancelled Absolute Neuts (auto) Cancelled Absolute Nucleated RBC 0.000 (0.0-0.012) X10*3/uL Nucleated RBC % (auto) 0.0 (0.0-0.2) /100WBC Neutrophils % (Manual) 69 (45-73) % Band Neutrophils % 17 H (3-5) % Lymphocytes % (Manual) 4 L (20-40) % Monocytes % (Manual) 9 (2-11) % Basophils % (Manual) 1 (0-2) % Abs Neuts (Manual) 7.7 (2.0-8.3) X10*3/uL Lymphocytes # (Manual) 0.4 L (1.2-4.9) X10*3/uL Monocytes # (Manual) 0.8 (0.1-1.2) X10*3/uL Basophils # (Manual) 0.1 (0.0-0.2) X10*3/uL Toxic Granulation PRESENT Platelet Estimate NORMAL (NORMAL) Plt Morphology Comment NORMAL RBC Morphology NOTED Kellen Cells 3+ (>5) /OIF Sodium 133 L (135-145) mmol/L Potassium 4.2 (3.3-5.1) mmol/L Chloride 99 (96-108) mmol/L Carbon Dioxide 24 (22-29) mmol/L Anion Gap 14 (12-20) BUN 17 H (9-16) mg/dL Creatinine 1.02 (0.5-1.4) mg/dL Estim Creat Clear Calc 33.2 Estimated GFR 52 Random Glucose 115 (60-115) mg/dL Lactic Acid 2.0 (0.5-2.0) mmol/L Calcium 8.8 (8.4-10.2) mg/dL Magnesium 2.0 (1.6-2.6) mg/dL Total Bilirubin 0.6 (0.0-1.0) mg/dL AST 16 (5-31) U/L ALT < 6 (0-31) U/L Alkaline Phosphatase 120 H (39-117) U/L Total Protein 6.1 L (6.5-8.0) g/dL Albumin 2.6 L (3.5-5.0) g/dL Lipase < 4 L (8-78) U/L Medications Administered Discontinued Medications Generic Name Dose Route Start Last Admin Trade Name Freq PRN Reason Stop Dose Admin Sodium Chloride 1,000 mls @ 999 mls/hr 03/26/25 15:30 03/26/25 17:27 Ns IV 03/26/25 16:30 Infused .Q1H1M BARBARA Infusion Piperacillin Sod/Tazobactam 100 mls @ 200 mls/hr 03/26/25 16:18 03/26/25 17:27 Sod 4.5 gm/ Sodium Chloride IV 03/26/25 16:47 Infused ONCE ONE Infusion Lactulose 20 gm 03/26/25 20:58 03/26/25 21:19 Lactulose 20 Gm/30 Ml Solution PO 03/26/25 20:59 20 gm ONCE ONE Administration Magnesium Citrate 300 ml 03/26/25 18:52 03/26/25 19:09 Magnesium Citrate 300 Ml Solution PO 03/26/25 18:53 300 ml ONCE ONE Administration Morphine Sulfate 2 mg 03/26/25 15:16 03/26/25 15:32 Morphine Sulfate 4 Mg/Ml Cartridge IVPUSH 03/26/25 15:17 2 mg ONCE ONE Administration Protocol Polyethylene Glycol 17 gm 03/26/25 20:58 03/26/25 21:20 Polyethylene Glycol 3350 17 Gm Powd.Pack PO 03/26/25 20:59 17 gm ONCE ONE Administration Critical Care Time Critical Care Time Critical Care Time: Yes Total Critical Care Time: 35 Attestation: Time is exclusive of separately billable procedures. Time includes: direct patient care, patient reassessment, coordination of patient care, interpretation of data (laboratory data, pulse oximetry, arterial blood gases and chest xrays), review of patient's medical records, medical consultation and documentation of patient care. Procedures excluded from critical care time: central intravenous line placement and electrocardiography. Discharge Plan Discharge Clinical Impression: Abdominal pain, Anal squamous cell carcinoma Patient Disposition: Admitted As Inpatient
[2025-03-26 13:36] LABS: Hematocrit 40.6 % (37.0-47.0); Hemoglobin 12.9 g/dl (12.0-16.0); Mean Corpuscular HGB Conc 31.8 g/dl (31.0-35.0); Mean Corpuscular Hemoglobin 28.4 pg (27.0-33.0); Mean Corpuscular Volume 89.4 fL (80.0-98.0); NRBC Abs Auto 0.000 X10*3/uL (0.0-0.012); NRBC Pct Auto 0.0 /100WBC (0.0-0.2); Platelet Count 296 X10*3/uL (160-400); Red Blood Count 4.54 X10*6/uL (4.20-5.50)
[2025-03-26 13:39] LABS: WBC ABN SCTR FOR CBC 1
[2025-03-26 13:51] LABS: Alanine Aminotransferase < 6 U/L (0-31); Albumin Level 2.6 g/dL (3.5-5.0); Alkaline Phosphatase 120 U/L (39-117); Anion Gap 14 (12-20); Aspartate Amino Transferase 16 U/L (5-31); Blood Urea Nitrogen 17 mg/dL (9-16); Calcium 8.8 mg/dL (8.4-10.2); Carbon Dioxide 24 mmol/L (22-29); Chloride 99 mmol/L (96-108); Creatinine Clr Calc Pharmacy 33.2; Estimated Glomerular Filt Rate 52; Lipase < 4 U/L (8-78); Magnesium 2.0 mg/dL (1.6-2.6); Potassium 4.2 mmol/L (3.3-5.1); Sodium 133 mmol/L (135-145); Total Protein 6.1 g/dL (6.5-8.0)
[2025-03-26 14:15] LABS: Neutrophils Percent Manual 69 % (45-73)
[2025-03-26 14:17] LABS: Band Neutrophils Percent 17 % (3-5); Basophils Percent Manual 1 % (0-2); Lymphocytes Percent Manual 4 % (20-40); Monocytes Percent Manual 9 % (2-11)
[2025-03-26 14:20] LABS: Burr Cells 3+ (>5) /OIF; RBC Morphology NOTED
[2025-03-26 14:21] LABS: Toxic Granulation PRESENT
[2025-03-26 14:24] LABS: Basophils Abs Manual 0.1 X10*3/uL (0.0-0.2); Lymphocytes Absolute Manual 0.4 X10*3/uL (1.2-4.9); Monocytes Absolute Manual 0.8 X10*3/uL (0.1-1.2); Neutrophils Absolute Manual 7.7 X10*3/uL (2.0-8.3); White Blood Count 8.9 X10*3/uL (4.8-10.8)
[2025-03-26 14:57] VITALS: BP 139/65; PULSE 90; RESP 16; O2SAT 100
--- OUTSIDE RECORDS SUMMARY | 2025-03-26 16:51 | XMS_ITS | Encounter Summary ---
Author Organization [facility] Address [address] [place] [address] Phone Care Team Providers Care Grade School Teacher Name Role Phone Kala Lundberg MD Primary Care Provider Adolfo Raymundo MBBS Unavailable Maria A Bolivar STRICKLER ATTENDANT Unavailable Dejah Shepard GALLEY BOY Unavailable [phone] EmilianoDamasoen CSR RETAIL Unavailable Reason for Visit * Reason Onset Date Comments check in with pt's 08/01/2024 Encounter Details Date Type Department Care Team (Late st Contact Info) Description 08/01/2024 Telephone [facility] Rad Onc [address] [place] [address] [phone] Chantell Villarreal MD [address] [place] [address] [phone] [email or web address] check in with pt's Social History [...] Care Team (Late st Contact Info) Description 03/07/2025 Procedure Pass [facility], [address] [address] 05/22/2025 3:40 PM EST Office Visit [facility] [address] 3[address] Floor, [address] [place] [address] Scott Osuna MD [address] [place] [address] 05/27/2025 2:30 PM EST Appointment [facility], [address] [address] Adolfo Raymundo MBBS [address] [place] [phone] [email or web address] 06/12/2025 1:30 PM EST Office Visit [facility] Rad Onc [address] [place] [address] Chantell Villarreal MD [address] [place] [phone] documented as of this encounter Visit Diagnoses Not on filedocumented in this encounter Care Teams Grade School Teacher Relationship Specialty Start Date End Date Kala Lundberg MD [address] [facility] [place] [address] PCP - General Internal Medicine 06/22/24 Adolfo Raymundo MBBS [facility] [place] [address] [email or web address] Medical Oncology 07/02/24 Maria A Bolivar FNP [address] [place] [address] [email or web address] Nurse Practitioner Medical Oncology 07/18/24 Dejah Shepard NP [address] [place] [address] [email or web address] Nurse Practitioner 08/14/24 Crista Cummings CNP [address] [place] [phone] [email or web address] Nurse Practitioner 11/29/24 documented as of this encounter Additional Source Comments The information contained in this document represents components of the legal health record. It is not the complete legal health record.[facility]
--- OUTSIDE RECORDS SUMMARY | 2025-03-26 16:51 | XMS_ITS | Encounter Summary ---
Author Organization [facility] Address [address] [place] [address] Care Team Providers Care Warp Tension Tester Name Role Phone Wendy Mathis DO Primary Care Provider + Encounter Details Date Type Department Care Team (Latest Contact Info) Description 11/10/2024 Lab Requisition [facility] - Main Lab [address] [facility] [place] [address] Michael Allen MD [address] [place] [address] Diverticulitis of intestine, part unspecified, [...] LAB CHEMISTRY METHOD 11/12/2024 11:01 AM EDT [facility] Potassium 4.1 3.5 - 5.5 mmol/L LAB CHEMISTRY METHOD 11/12/2024 11:01 AM [facility] Chloride 103 96 - 110 mmol/L LAB CHEMISTRY METHOD 11/12/2024 11:01 AM [facility] CO2 28 21 - 32 mmol/L LAB CHEMISTRY METHOD 11/12/2024 11:01 AM [facility] Anion Gap 5 3 - 11 LAB CHEMISTRY METHOD 11/12/2024 11:01 AM [facility] Glucose 65(L) 70 - 100 mg/dL LAB CHEMISTRY METHOD 11/12/2024 11:01 AM [facility] BUN 21 5 - 25 mg/dL LAB CHEMISTRY METHOD 11/12/2024 11:01 AM [facility] Creatinine 0.79 0.50 - 1.10 mg/dL LAB CHEMISTRY METHOD 11/12/2024 11:01 AM [facility] eGFR 76 >=60 mL/min/1. 73m2 LAB CHEMISTRY METHOD 11/12/2024 11:01 AM [facility] Comment:Calculation based on the Chronic Kidney Disease Epidemiology Collaboration (CKD-EPI) equation refit without adjustment for race. BUN/Creatinine Ratio 26.6 LAB CHEMISTRY METHOD 11/12/2024 11:01 AM [facility] Calcium 8.2(L) 8.5 - 10.5 mg/dL LAB CHEMISTRY METHOD 11/12/2024 11:01 AM [facility] AST (SGOT) 15 10 - 42 unit/L LAB CHEMISTRY METHOD 11/12/2024 11:01 AM [facility] ALT (SGPT) 37 10 - 60 unit/L LAB CHEMISTRY METHOD 11/12/2024 11:01 AM [facility] Comment:Results verified by repeat testing Alkaline Phosphatase 108 42 - 121 unit/L LAB CHEMISTRY METHOD 11/12/2024 11:01 AM [facility] Total Protein 5.6(L) 6.0 - 8.0 g/dL LAB CHEMISTRY METHOD 11/12/2024 11:01 AM EDT [facility] Albumin 2.4(L) 3.2 - 5.0 g/dL LAB CHEMISTRY METHOD 11/12/2024 11:01 AM EDT [facility] Total Bilirubin 0.3 0.0 - 1.4 mg/dL LAB CHEMISTRY METHOD 11/12/2024 11:01 AM EDT [facility] Blood Venous blood specimen / Unknown Venipuncture / Unknown 11/12/2024 4:58 AM EDT 11/12/2024 9:55 AM EDT Michael Allen MD LAB BLOOD ORDERABLES Final Resu lt [facility] [address] [place] [address], * (ABNORMAL) Complete blood count (11/12/2024 4:58 AM EDT) WBC 6.7 4.8 - 10.8 K/mcL LAB HEMETOLOGY METHOD 11/12/2024 10:22 AM [facility] RBC 3.20(L) 3.80 - 4.80 M/mcL LAB HEMETOLOGY METHOD 11/12/2024 10:22 AM [facility] Hemoglobin 10.1(L) 11.5 - 16.0 g/dL LAB HEMETOLOGY METHOD 11/12/2024 10:22 AM [facility] Hematocrit 32.4(L) 35.0 - 47.0 % LAB HEMETOLOGY METHOD 11/12/2024 10:22 AM [facility] MCV 101.3(H) 79.0 - 98.0 FL LAB HEMETOLOGY METHOD 11/12/2024 10:22 AM [facility] MCH 31.6 27.0 - 32.0 pcg LAB HEMETOLOGY METHOD 11/12/2024 10:22 AM EDT [facility] MCHC 31.2(L) 32.0 - 37.0 g/dL LAB HEMETOLOGY METHOD 11/12/2024 10:22 AM EDT [facility] RDW 14.8 11.0 - 15.0 % LAB HEMETOLOGY METHOD 11/12/2024 10:22 AM EDT [facility] Platelets 144 130 - 400 K/mcL LAB HEMETOLOGY METHOD 11/12/2024 10:22 AM EDT [facility] MPV 9.0 7.0 - 11.0 FL LAB HEMETOLOGY METHOD 11/12/2024 10:22 AM EDT [facility] NRBC 0.0 <1.0 % LAB HEMETOLOGY METHOD 11/12/2024 10:22 AM EDT [facility] NRBC Absolute 0.00 <0.10 K/mcL LAB HEMETOLOGY METHOD 11/12/2024 10:22 AM EDT [facility] Blood Venous blood specimen / Unknown Venipuncture / Unknown 11/12/2024 4:58 AM EDT 11/12/2024 9:52 AM EDT Michael Allen MD LAB BLOOD ORDERABLES Final Resu lt [facility] [address] [place] [address], documented in this encounter Visit Diagnoses Diagnosis Diverticulitis of intestine, part unspecified, without perforation or abscess without bleeding documented in this encounter Care Teams Warp Tension Tester Relationship Specialty Start Date End Date Wendy Mathis DO [address] [facility] [address] [place] [address] PCP - General Family Medicine 05/31/17 documented as of this encounter
--- OUTSIDE RECORDS SUMMARY | 2025-03-26 16:51 | XMS_ITS | Encounter Summary ---
Author Organization [facility] Address [address] [facility] [address] [place] [address] Phone Care Team Providers Care Testing Projects Administrator Name Role Phone Kala Lundberg MD Primary Care Provider Adolfo Raymundo MBBS Unavailable Maria A Bolivar DENTAL AIDE Unavailable Dejah Shepard RIDE MECHANIC Unavailable Crista Cummings SFDC CONSULTANT Unavailable Encounter Details Date Type Department Care Team (Late st Contact Info) Description 10/25/2024 Procedure Pass [facility], Ct Scan - [address] [phone] Social History Tobacco Use Types Packs/Day Years [...] st Contact Info) Description 03/07/2025 Procedure Pass [facility], Ct [address] [address] 05/22/2025 3:40 PM EST Office Visit [facility] [address] Floor, [address] [place] [address] Scott Osuna MD [address] [place] [address] 05/27/2025 2:30 PM EST Appointment [facility], [address] [address] Adolfo Raymundo MBBS [address] [place] [phone] [email or web address] 06/12/2025 1:30 PM EST Office Visit [facility] Rad Onc [address] [place] [address] Chantell Villarreal MD [address] [place] [address] documented as of this encounter Visit Diagnoses Not on filedocumented in this encounter Care Teams Testing Projects Administrator Relationship Specialty Start Date End Date Kala Lundberg MD [address] [facility] [place] [address] PCP - General Internal Medicine 06/22/24 Adolfo Raymundo MBBS [address] [facility] [place] [address] [email or web address] Medical Oncology 07/02/24 Maria A Bolivar FNP [address] [place] [phone] [email or web address] Nurse Practitioner Medical Oncology 07/18/24 Dejah Shepard NP [address] [place] [phone] [email or web address] Nurse Practitioner 08/14/24 Crista Cummings CNP [address] [place] [address] [email or web address] Nurse Practitioner 11/29/24 documented as of this encounter Additional Source Comments The information contained in this document represents components of the legal health record. It is not the complete legal health record.[facility]
--- OUTSIDE RECORDS SUMMARY | 2025-03-26 16:51 | XMS_ITS | Encounter Summary ---
Author Organization [facility] Address [address] [facility] [address] [place] [address] Phone Care Team Providers Care Logging Truck Driver Name Role Phone Kala Lundberg MD Primary Care Provider Adolfo Raymundo MBBS Unavailable Maria A Bolivar PICKUP DRIVER Unavailable Dejah Shepard ELEPHANT KEEPER Unavailable Crista Cummings DUMP TRUCK OPERATOR Unavailable Encounter Details Date Type Department Care Team (Late st Contact Info) Description 10/25/2024 Procedure Pass [facility], Ct Scan - [address] [phone] Social History Tobacco Use Types Packs/Day Years [...] st Contact Info) Description 03/07/2025 Procedure Pass [facility], Ct [address] [address] 05/22/2025 3:40 PM EST Office Visit [facility] [address] Floor, [address] [place] [address] Scott Osuna MD [address] [place] [address] 05/27/2025 2:30 PM EST Appointment [facility], [address] [address] Adolfo Raymundo MBBS [address] [place] [address] [email or web address] 06/12/2025 1:30 PM EST Office Visit [facility] Rad Onc [address] [place] [address] Chantell Villarreal MD [address] [place] [phone] documented as of this encounter Visit Diagnoses Not on filedocumented in this encounter Care Teams Logging Truck Driver Relationship Specialty Start Date End Date Kala Lundberg MD [address] [facility] [place] [address] PCP - General Internal Medicine 06/22/24 Adolfo Raymundo MBBS [address] [facility] [place] [address] [email or web address] Medical Oncology 07/02/24 Maria A Bolivar FNP [address] [place] [address] [email or web address] Nurse Practitioner Medical Oncology 07/18/24 Dejah Shepard NP [address] [place] [phone] [email or web address] Nurse Practitioner 08/14/24 Crista Cummings CNP [address] [place] [phone] [email or web address] Nurse Practitioner 11/29/24 documented as of this encounter Additional Source Comments The information contained in this document represents components of the legal health record. It is not the complete legal health record.[facility]
--- OUTSIDE RECORDS SUMMARY | 2025-03-26 16:51 | XMS_ITS | Encounter Summary ---
Author Organization [facility] Address [address] [place] [address] Care Team Providers Care Parts Advisor Name Role Phone Wendy Mathis DO Primary Care Provider + Encounter Details Date Type Department Care Team (Latest Contact Info) Description 11/14/2024 Lab Requisition [facility] - Main Lab [address] [facility] [address] Michael Allen MD [address] [place] [address] Diverticulitis of intestine, part unspecified, [...] LAB HEMETOLOGY METHOD 11/15/2024 11:37 AM EDT [facility] RBC 3.10(L) 3.80 - 4.80 M/mcL LAB HEMETOLOGY METHOD 11/15/2024 11:37 AM [facility] LAB Hemoglobin 9.8(L) 11.5 - 16.0 g/dL LAB HEMETOLOGY METHOD 11/15/2024 11:37 AM [facility] LAB Hematocrit 32.0(L) 35.0 - 47.0 % LAB HEMETOLOGY METHOD 11/15/2024 11:37 AM [facility] LAB MCV 102.9(H) 79.0 - 98.0 FL LAB HEMETOLOGY METHOD 11/15/2024 11:37 AM [facility] LAB MCH 31.5 27.0 - 32.0 pcg LAB HEMETOLOGY METHOD 11/15/2024 11:37 AM [facility] LAB MCHC 30.6(L) 32.0 - 37.0 g/dL LAB HEMETOLOGY METHOD 11/15/2024 11:37 AM [facility] LAB RDW 14.8 11.0 - 15.0 % LAB HEMETOLOGY METHOD 11/15/2024 11:37 AM [facility] LAB Platelets 139 130 - 400 K/mcL LAB HEMETOLOGY METHOD 11/15/2024 11:37 AM [facility] LAB MPV 9.3 7.0 - 11.0 FL LAB HEMETOLOGY METHOD 11/15/2024 11:37 AM [facility] LAB NRBC 0.0 <1.0 % LAB HEMETOLOGY METHOD 11/15/2024 11:37 AM [facility] LAB NRBC Absolute 0.00 <0.10 K/mcL LAB HEMETOLOGY METHOD 11/15/2024 11:37 AM [facility] LAB Blood Venous blood specimen / Unknown Venipuncture / Unknown 11/15/2024 5:31 AM EDT 11/15/2024 11:24 AM EDT us Michael Allen MD LAB BLOOD ORDERABLES Final Resu lt [facility] LAB [address] [place] [address], [place] [phone] * Basic metabolic panel (11/15/2024 5:31 AM EDT) Sodium 138 133 - 145 mmol/L LAB CHEMISTRY METHOD 11/15/2024 12:11 PM [facility] LAB Potassium 4.0 3.5 - 5.5 mmol/L LAB CHEMISTRY METHOD 11/15/2024 12:11 PM [facility] LAB Chloride 103 96 - 110 mmol/L LAB CHEMISTRY METHOD 11/15/2024 12:11 PM [facility] LAB CO2 29 21 - 32 mmol/L LAB CHEMISTRY METHOD 11/15/2024 12:11 PM [facility] LAB Anion Gap 6 3 - 11 LAB CHEMISTRY METHOD 11/15/2024 12:11 PM [facility] LAB Glucose 70 70 - 100 mg/dL LAB CHEMISTRY METHOD 11/15/2024 12:11 PM [facility] LAB BUN 22 5 - 25 mg/dL LAB CHEMISTRY METHOD 11/15/2024 12:11 PM [facility] LAB Creatinine 0.74 0.50 - 1.10 mg/dL LAB CHEMISTRY METHOD 11/15/2024 12:11 PM [facility] LAB eGFR 82 >=60 mL/min/1. 73m2 LAB CHEMISTRY METHOD 11/15/2024 12:11 PM [facility] LAB Comment:Calculation based on the Chronic Kidney Disease Epidemiology Collaboration (CKD-EPI) equation refit without adjustment for race. BUN/Creatinine Ratio 29.7 LAB CHEMISTRY METHOD 11/15/2024 12:11 PM [facility] LAB Calcium 8.8 8.5 - 10.5 mg/dL LAB CHEMISTRY METHOD 11/15/2024 12:11 PM EDT [facility] LAB Blood Venous blood specimen / Unknown Venipuncture / Unknown 11/15/2024 5:31 AM EDT 11/15/2024 11:24 AM EDT us Michael Allen MD LAB BLOOD ORDERABLES Final Resu lt [facility] LAB [address] [place] [address], documented in this encounter Visit Diagnoses Diagnosis Diverticulitis of intestine, part unspecified, without perforation or abscess without bleeding documented in this encounter Care Teams Parts Advisor Relationship Specialty Start Date End Date Wendy Mathis DO [address] [address] PCP - General Family Medicine 05/31/17 documented as of this encounter
--- OUTSIDE RECORDS SUMMARY | 2025-03-26 16:51 | XMS_ITS | Encounter Summary ---
Author Organization [facility] Address [address] [place] [address] Care Team Providers Care It Teacher Name Role Phone Wendy Mathis DO Primary Care Provider + Encounter Details Date Type Department Care Team (Latest Contact Info) Description 11/05/2024 Lab Requisition [facility] - Main Lab [address] [facility] [place] [address] Michael Allen MD [address] [place] [address] Diverticulitis of intestine, part unspecified, [...] AM EDT) WBC 9.2 4.8 - 10.8 K/[facility] LAB HEMETOLOGY METHOD 11/05/2024 1:54 PM EDT [facility] RBC 3.20(L) 3.80 - 4.80 M/mcL LAB HEMETOLOGY METHOD 11/05/2024 1:54 PM EDT [facility] LAB Hemoglobin 10.4(L) 11.5 - 16.0 g/dL LAB HEMETOLOGY METHOD 11/05/2024 1:54 PM EDT [facility] LAB Hematocrit 33.1(L) 35.0 - 47.0 % LAB HEMETOLOGY METHOD 11/05/2024 1:54 PM [facility] LAB MCV 105.1(H) 79.0 - 98.0 FL LAB HEMETOLOGY METHOD 11/05/2024 1:54 PM [facility] LAB MCH 33.0(H) 27.0 - 32.0 pcg LAB HEMETOLOGY METHOD 11/05/2024 1:54 PM [facility] LAB MCHC 31.4(L) 32.0 - 37.0 g/dL LAB HEMETOLOGY METHOD 11/05/2024 1:54 PM [facility] LAB RDW 15.1(H) 11.0 - 15.0 % LAB HEMETOLOGY METHOD 11/05/2024 1:54 PM [facility] LAB Platelets 164 130 - 400 K/mcL LAB HEMETOLOGY METHOD 11/05/2024 1:54 PM [facility] LAB MPV 8.8 7.0 - 11.0 FL LAB HEMETOLOGY METHOD 11/05/2024 1:54 PM [facility] LAB NRBC 0.0 <1.0 % LAB HEMETOLOGY METHOD 11/05/2024 1:54 PM [facility] LAB NRBC Absolute 0.00 <0.10 K/mcL LAB HEMETOLOGY METHOD 11/05/2024 1:54 PM [facility] LAB Blood Venous blood specimen / Unknown 11/05/2024 5:07 AM EDT 11/05/2024 12:28 PM EDT us Michael Allen MD LAB BLOOD ORDERABLES Final Resu lt [facility] LAB [address] [place] [address], [place] [phone] * (ABNORMAL) Comprehensive metabolic panel (11/05/2024 5:07 AM EDT) Sodium 140 133 - 145 mmol/L LAB CHEMISTRY METHOD 11/05/2024 4:49 PM [facility] LAB Potassium 3.2(L) 3.5 - 5.5 mmol/L LAB CHEMISTRY METHOD 11/05/2024 4:49 PM [facility] LAB Chloride 104 96 - 110 mmol/L LAB CHEMISTRY METHOD 11/05/2024 4:49 PM [facility] LAB CO2 25 21 - 32 mmol/L LAB CHEMISTRY METHOD 11/05/2024 4:49 PM [facility] LAB Anion Gap 11 3 - 11 LAB CHEMISTRY METHOD 11/05/2024 4:49 PM [facility] LAB Glucose 54(L) 70 - 100 mg/dL LAB CHEMISTRY METHOD 11/05/2024 4:49 PM [facility] LAB BUN 16 5 - 25 mg/dL LAB CHEMISTRY METHOD 11/05/2024 4:49 PM [facility] LAB Creatinine 0.78 0.50 - 1.10 mg/dL LAB CHEMISTRY METHOD 11/05/2024 4:49 PM [facility] LAB eGFR 77 >=60 mL/min/1. 73m2 LAB CHEMISTRY METHOD 11/05/2024 4:49 PM [facility] LAB Comment:Calculation based on the Chronic Kidney Disease Epidemiology Collaboration (CKD-EPI) equation refit without adjustment for race. BUN/Creatinine Ratio 20.5 LAB CHEMISTRY METHOD 11/05/2024 4:49 PM [facility] LAB Calcium 8.2(L) 8.5 - 10.5 mg/dL LAB CHEMISTRY METHOD 11/05/2024 4:49 PM EDT [facility] LAB AST (SGOT) 15 10 - 42 unit/L LAB CHEMISTRY METHOD 11/05/2024 4:49 PM [facility] LAB ALT (SGPT) 18 10 - 60 unit/L LAB CHEMISTRY METHOD 11/05/2024 4:49 PM EDT [facility] LAB Alkaline Phosphatase 106 42 - 121 unit/L LAB CHEMISTRY METHOD 11/05/2024 4:49 PM EDT [facility] LAB Total Protein 5.7(L) 6.0 - 8.0 g/dL LAB CHEMISTRY METHOD 11/05/2024 4:49 PM EDT [facility] LAB Albumin 2.1(L) 3.2 - 5.0 g/dL LAB CHEMISTRY METHOD 11/05[facility]24 [facility] Total Bilirubin 0.3 0.0 - 1.4 mg/dL LAB CHEMISTRY METHOD 11/05/2024 4:49 [facility] Blood Venous blood specimen / Unknown 11/05/2024 5:07 AM EDT 11/05/2024 12:28 PM EDT us Michael Allen MD LAB BLOOD ORDERABLES Final Resu lt [facility] LAB [address] [place] [address], documented in this encounter Visit Diagnoses Diagnosis Diverticulitis of intestine, part unspecified, without perforation or abscess without bleeding documented in this encounter Care Teams It Teacher Relationship Specialty Start Date End Date Wendy Mathis DO [address] [address] PCP - General Family Medicine 05/31/17 documented as of this encounter
--- OUTSIDE RECORDS SUMMARY | 2025-03-26 16:51 | XMS_ITS | Encounter Summary ---
Author Organization [facility] Address [address] [facility] [address] [place] [address] Phone Care Team Providers Care Online Merchant Name Role Phone Kala Lundberg MD Primary Care Provider Adolfo Raymundo MBBS Unavailable Maria A Bolivar LEVEL VIAL INSIDE GRINDER Unavailable Dejah Shepard FLOW MATCH SOFA CUTTER Unavailable Crista Cummings FINANCE BROKER Unavailable Encounter Details Date Type Department Care Team (Late st Contact Info) Description 12/06/2024 Procedure Pass [facility], Ct Scan - [address] [phone] Social History Tobacco Use Types Packs/Day Years [...] st Contact Info) Description 03/07/2025 Procedure Pass [facility], Ct [address] [address] 05/22/2025 3:40 PM EST Office Visit [facility] [address] Floor, [address] [place] [address] Scott Osuna MD [address] [place] [address] 05/27/2025 2:30 PM EST Appointment [facility], [address] [address] Adolfo Raymundo MBBS [address] [place] [phone] [email or web address] 06/12/2025 1:30 PM EST Office Visit [facility] Rad Onc [address] [place] [address] Chantell Villarreal MD [address] [place] [address] documented as of this encounter Visit Diagnoses Not on filedocumented in this encounter Care Teams Online Merchant Relationship Specialty Start Date End Date Kala Lundberg MD [address] [place] [address] PCP - General Internal Medicine 06/22/24 Adolfo Raymundo MBBS [address] [place] [address] [email or web address] Medical Oncology 07/02/24 Maria A Bolivar FNP [address] [place] [address] [email or web address] Nurse Practitioner Medical Oncology 07/18/24 Dejah Shepard NP [address] [place] [address] [email or web address] Nurse Practitioner 08/14/24 Crista Cummings CNP [address] [place] [address] [email or web address] Nurse Practitioner 11/29/24 documented as of this encounter Additional Source Comments The information contained in this document represents components of the legal health record. It is not the complete legal health record.[facility]
--- OUTSIDE RECORDS SUMMARY | 2025-03-26 16:51 | XMS_ITS | Encounter Summary ---
Author Organization [facility] Address [address] [place] [address] Phone Care Team Providers Care Caramel Candy Maker Name Role Phone Kala Lundberg MD Primary Care Provider Adolfo Raymundo MBBS Unavailable Maria A Bolivar WIRE ROLLER Unavailable Dejah Shepard MOTOR COACH SUPERVISOR Unavailable Crista Cummings DINING ROOM ATTENDANT CAFETERIA Unavailable Encounter Details Date Type Department Care Team (Late st Contact Info) Description 06/29/2024 Documentation [facility] Rad Onc [address] [place], [place] [phone] Ekta Castro RN [address] [place] [address] [email or web address] Social History Tobacco Use Types Packs/Day Years [...] st Contact Info) Description 03/07/2025 Procedure Pass [facility], [address] [address] 05/22/2025 3:40 PM EST Office Visit [facility] [address] [place] [address] 3rd Floor, [address] [place] [address] Scott Osuna MD [address] [place] [address] 05/27/2025 2:30 PM EST Appointment [facility], [address] [address] Adolfo Raymundo MBBS [address] [place] [phone] [email or web address] 06/12/2025 1:30 PM EST Office Visit [facility] Rad Onc [address] [place] [address] Chantell Villarreal MD [address] [place] [address] documented as of this encounter Visit Diagnoses Not on filedocumented in this encounter Care Teams Caramel Candy Maker Relationship Specialty Start Date End Date Kala Lundberg MD [address] [place] [address] PCP - General Internal Medicine 06/22/24 Adolfo Raymundo MBBS [address] [place] [address] [email or web address] Medical Oncology 07/02/24 Maria A Bolivar FNP [address] [place] [phone] [email or web address] Nurse Practitioner Medical Oncology 07/18/24 Dejah Shepard NP [address] [place] [address] [email or web address] Nurse Practitioner 08/14/24 Crista Cummings CNP [address] [place] [address] [email or web address] Nurse Practitioner 11/29/24 documented as of this encounter Additional Source Comments The information contained in this document represents components of the legal health record. It is not the complete legal health record.[facility]
--- OUTSIDE RECORDS SUMMARY | 2025-03-26 16:51 | XMS_ITS | Encounter Summary ---
Author Organization [facility] Address [address] [facility] [address] [place] [address] Phone Care Team Providers Care Automobile Rental Representative Name Role Phone Kala Lundberg MD Primary Care Provider Adolfo Raymundo MBBS Unavailable Maria A Bolivar DIRECTOR DRUG SAFETY Unavailable [phone] Dejah Shepard CHAR HOUSE SUPERVISOR Unavailable Crista Cummings ENVIRONMENTAL CONSTRUCTION ENGINEER Unavailable Encounter Details Date Type Department Care Team (Late st Contact Info) Description 12/06/2024 Procedure Pass [facility], Ct Scan - [address] [phone] Social History Tobacco Use Types Packs/Day Years [...] st Contact Info) Description 03/07/2025 Procedure Pass [facility], Ct [address] [address] 05/22/2025 3:40 PM EST Office Visit [facility] [address]rd Floor, [address] [place] [address] Scott Osuna MD [address] [place] [address] 05/27/2025 2:30 PM EST Appointment [facility], [address] [address] Adolfo Raymundo MBBS [address] [place] [address] [email or web address] 06/12/2025 1:30 PM EST Office Visit [facility] Rad Onc [address] [place] [address] Chantell Villarreal MD [address] [place] [address] documented as of this encounter Visit Diagnoses Not on filedocumented in this encounter Care Teams Automobile Rental Representative Relationship Specialty Start Date End Date Kala Lundberg MD [address] [place] [address] PCP - General Internal Medicine 06/22/24 Adolfo Raymundo MBBS [address] [place] [address] [email or web address] Medical Oncology 07/02/24 Maria A Bolivar FNP [address] [place] [address] [email or web address] Nurse Practitioner Medical Oncology 07/18/24 Dejah Shepard NP [address] [place] [address] [email or web address] Nurse Practitioner 08/14/24 Crista Cummings CNP [address] [place] [phone] [email or web address] Nurse Practitioner 11/29/24 documented as of this encounter Additional Source Comments The information contained in this document represents components of the legal health record. It is not the complete legal health record.[facility]
--- OUTSIDE RECORDS SUMMARY | 2025-03-26 16:51 | XMS_ITS | Encounter Summary ---
Author Organization [facility] Address [address] [place] [address] Care Team Providers Care Senior Software Engineer Analytics Name Role Phone Wendy Mathis DO Primary Care Provider + Encounter Details Date Type Department Care Team (Latest Contact Info) Description 11/03/2024 Lab Requisition [facility] - Main Lab [address] [facility] [place] [address] Michael Allen MD [address] [place] [address] Diverticulitis of small intestine with [...] LAB CHEMISTRY METHOD 11/03/2024 1:02 PM EDT [facility] Potassium 4.2 3.5 - 5.5 mmol/L LAB CHEMISTRY METHOD 11/03/2024 1:02 PM [facility] LAB Chloride 108 96 - 110 mmol/L LAB CHEMISTRY METHOD 11/03/2024 1:02 PM [facility] LAB CO2 27 21 - 32 mmol/L LAB CHEMISTRY METHOD 11/03/2024 1:02 PM [facility] LAB Anion Gap 6 3 - 11 LAB CHEMISTRY METHOD 11/03/2024 1:02 PM [facility] LAB Glucose 95 70 - 100 mg/dL LAB CHEMISTRY METHOD 11/03/2024 1:02 PM [facility] LAB BUN 18 5 - 25 mg/dL LAB CHEMISTRY METHOD 11/03/2024 1:02 PM [facility] LAB Creatinine 0.88 0.50 - 1.10 mg/dL LAB CHEMISTRY METHOD 11/03/2024 1:02 PM [facility] LAB eGFR 67 >=60 mL/min/1. 73m2 LAB CHEMISTRY METHOD 11/03/2024 1:02 PM [facility] LAB Comment:Calculation based on the Chronic Kidney Disease Epidemiology Collaboration (CKD-EPI) equation refit without adjustment for race. BUN/Creatinine Ratio 20.5 LAB CHEMISTRY METHOD 11/03/2024 1:02 [facility] LAB Calcium 9.1 8.5 - 10.5 mg/dL LAB CHEMISTRY METHOD 11/03/2024 1:02 PM [facility] LAB AST (SGOT) 12 10 - 42 unit/L LAB CHEMISTRY METHOD 11/03/2024 1:02 PM [facility] LAB ALT (SGPT) 10 10 - 60 unit/L LAB CHEMISTRY METHOD 11/03/2024 1:02 PM [facility] LAB Alkaline Phosphatase 152(H) 42 - 121 unit/L LAB CHEMISTRY METHOD 11/03/2024 1:02 PM [facility] LAB Total Protein 6.0 6.0 - 8.0 g/dL LAB CHEMISTRY METHOD 11/03/2024 1:02 PM EDT [facility] LAB Albumin 2.1(L) 3.2 - 5.0 g/dL LAB CHEMISTRY METHOD 11/03/2024 1:02 PM EDT [facility] LAB Total Bilirubin 0.2 0.0 - 1.4 mg/dL LAB CHEMISTRY METHOD 11/03/2024 1:02 PM EDT [facility] LAB Blood Venous blood specimen / Unknown Venipuncture / Unknown 11/03/2024 5:09 AM EDT 11/03/2024 12:27 PM EDT us Michael Allen MD LAB BLOOD ORDERABLES Final Resu lt [facility] LAB [address] [place] [address], [place] [phone] * (ABNORMAL) Complete blood count (11/03/2024 5:09 AM EDT) WBC 11.2(H) 4.8 - 10.8 K/mcL LAB HEMETOLOGY METHOD 11/03/2024 12:44 PM EDT [facility] LAB RBC 3.20(L) 3.80 - 4.80 M/mcL LAB HEMETOLOGY METHOD 11/03/2024 12:44 PM [facility] LAB Hemoglobin 10.1(L) 11.5 - 16.0 g/dL LAB HEMETOLOGY METHOD 11/03/2024 12:44 PM EDT [facility] LAB Hematocrit 33.4(L) 35.0 - 47.0 % LAB HEMETOLOGY METHOD 11/03/2024 12:44 PM EDT [facility] LAB MCV 105.4(H) 79.0 - 98.0 FL LAB HEMETOLOGY METHOD 11/03[facility]24 [facility] MCH 31.9 27.0 - 32.0 pcg LAB HEMETOLOGY METHOD 11/03/2024 12:44 PM EDT [facility] LAB MCHC 30.2(L) 32.0 - 37.0 g/dL LAB HEMETOLOGY METHOD 11/03/2024 12:44 PM EDT [facility] LAB RDW 15.0 11.0 - 15.0 % LAB HEMETOLOGY METHOD 11/03/2024 12:44 PM EDT [facility] LAB Platelets 224 130 - 400 K/mcL LAB HEMETOLOGY METHOD 11/03/2024 12:44 PM EDT [facility] LAB MPV 9.0 7.0 - 11.0 FL LAB HEMETOLOGY METHOD 11/03/2024 12:44 PM EDT [facility] LAB NRBC 0.0 <1.0 % LAB HEMETOLOGY METHOD 11/03/2024 12:44 PM EDT [facility] LAB NRBC Absolute 0.00 <0.10 K/mcL LAB HEMETOLOGY METHOD 11/03/2024 12:44 PM EDT [facility] LAB Blood Venous blood specimen / Unknown Venipuncture / Unknown 11/03/2024 5:09 AM EDT 11/03/2024 12:27 PM EDT us Michael Allen MD LAB BLOOD ORDERABLES Final Resu lt [facility] LAB [address] [place] [address], documented in this encounter Visit Diagnoses Diagnosis Diverticulitis of small intestine with perforation and abscess without bleeding documented in this encounter Care Teams Senior Software Engineer Analytics Relationship Specialty Start Date End Date Wendy Mathis DO [address] [facility] [address] [place] [address] PCP - General Family Medicine 05/31/17 documented as of this encounter
--- OUTSIDE RECORDS SUMMARY | 2025-03-26 16:51 | XMS_ITS | Encounter Summary ---
Author Organization [facility], Address [address] [place] [address] Phone Care Team Providers Care Relationship Specialist Name Role Phone Aakash Lundberg MD Primary Care Provider [phone] Encounter Details Date Type Department Care Team (Late Contact Info) Description 05/10/2024 Documentation Only [facility] [address] [place] [address] Estee Schafer [address] [place] [address] Social History Tobacco Use Types Packs/Day [...] Visit [facility] [address] [address] Opal [place] [address] [place] [phone] Uvlado Vivar MD [address] [place] [address] [place] [address] documented as of this encounter Visit Diagnoses Not on filedocumented in this encounter Care Teams Relationship Specialist Relationship Specialty Start Date End Date Aakash Lundberg MD PCP - General Internal Medicine 04/09/21 documented as of this encounter
--- OUTSIDE RECORDS SUMMARY | 2025-03-26 16:51 | XMS_ITS | Encounter Summary ---
Author Organization [facility] Address [address] [place] [address] Care Team Providers Care Soils Engineer Name Role Phone Wendy Mathis DO Primary Care Provider + Encounter Details Date Type Department Care Team (Latest Contact Info) Description 11/07/2024 Lab Requisition [facility] - Main Lab [address] [facility] [place] [address] Michael Allen MD [address] [place] [address] Diverticulitis of intestine, part unspecified, [...] AM EDT) WBC 5.9 4.8 - 10.8 K/[facility] LAB HEMETOLOGY METHOD 11/08/2024 8:37 AM EDT [facility] RBC 3.10(L) 3.80 - 4.80 M/mcL LAB HEMETOLOGY METHOD 11/08/2024 8:37 AM [facility] LAB Hemoglobin 9.8(L) 11.5 - 16.0 g/dL LAB HEMETOLOGY METHOD 11/08/2024 8:37 AM [facility] LAB Hematocrit 31.3(L) 35.0 - 47.0 % LAB HEMETOLOGY METHOD 11/08/2024 8:37 AM [facility] LAB MCV 101.6(H) 79.0 - 98.0 FL LAB HEMETOLOGY METHOD 11/08/2024 8:37 AM [facility] LAB MCH 31.8 27.0 - 32.0 pcg LAB HEMETOLOGY METHOD 11/08/2024 8:37 AM [facility] LAB MCHC 31.3(L) 32.0 - 37.0 g/dL LAB HEMETOLOGY METHOD 11/08/2024 8:37 AM [facility] LAB RDW 14.8 11.0 - 15.0 % LAB HEMETOLOGY METHOD 11/08/2024 8:37 AM [facility] LAB Platelets 122(L) 130 - 400 K/mcL LAB HEMETOLOGY METHOD 11/08/2024 8:37 AM [facility] LAB MPV 9.1 7.0 - 11.0 FL LAB HEMETOLOGY METHOD 11/08/2024 8:37 AM [facility] LAB NRBC 0.0 <1.0 % LAB HEMETOLOGY METHOD 11/08/2024 8:37 AM [facility] LAB NRBC Absolute 0.00 <0.10 K/mcL LAB HEMETOLOGY METHOD 11/08/2024 8:37 AM [facility] LAB Blood Venous blood specimen / Unknown Venipuncture / Unknown 11/08/2024 5:03 AM EDT 11/08/2024 7:41 AM EDT us Michael Allen MD LAB BLOOD ORDERABLES Final Resu lt [facility] LAB [address] [place] [address], [place] [phone] * Basic metabolic panel (11/08/2024 5:03 AM EDT) Pathologist [facility] Sodium 138 133 - 145 mmol/L LAB CHEMISTRY METHOD 11/08/2024 9:10 AM [facility] LAB Potassium 4.0 3.5 - 5.5 mmol/L LAB CHEMISTRY METHOD 11/08/2024 9:10 AM [facility] LAB Chloride 105 96 - 110 mmol/L LAB CHEMISTRY METHOD 11/08/2024 9:10 AM [facility] LAB CO2 28 21 - 32 mmol/L LAB CHEMISTRY METHOD 11/08/2024 9:10 AM [facility] LAB Anion Gap 5 3 - 11 LAB CHEMISTRY METHOD 11/08/2024 9:10 AM [facility] LAB Glucose 90 70 - 100 mg/dL LAB CHEMISTRY METHOD 11/08/2024 9:10 AM [facility] LAB BUN 24 5 - 25 mg/dL LAB CHEMISTRY METHOD 11/08/2024 9:10 AM [facility] LAB Creatinine 0.77 0.50 - 1.10 mg/dL LAB CHEMISTRY METHOD 11/08/2024 9:10 AM [facility] LAB eGFR 78 >=60 mL/min/1. 73m2 LAB CHEMISTRY METHOD 11/08/2024 9:10 AM [facility] LAB Comment:Calculation based on the Chronic Kidney Disease Epidemiology Collaboration (CKD-EPI) equation refit without adjustment for race. BUN/Creatinine Ratio 31.2 LAB CHEMISTRY METHOD 11/08/2024 9:10 AM EDT [facility] Calcium 8.9 8.5 - 10.5 mg/dL LAB CHEMISTRY METHOD 11/08/2024 9:10 AM EDT [facility] ([facility]) [facility] LAB Blood Venous blood specimen / Unknown Venipuncture / Unknown 11/08/2024 5:03 AM EDT 11/08/2024 7:41 AM EDT us Michael Allen MD LAB BLOOD ORDERABLES Final Resu lt [facility] ([facility]) [facility] [address] [place] [address], documented in this encounter Visit Diagnoses Diagnosis Diverticulitis of intestine, part unspecified, without perforation or abscess without bleeding documented in this encounter Care Teams Soils Engineer Relationship Specialty Start Date End Date Wendy Mathis DO [address] [address] PCP - General Family Medicine 05/31/17 documented as of this encounter
--- OUTSIDE RECORDS SUMMARY | 2025-03-26 16:51 | XMS_ITS | Clinical Summary ---
Author Organization [facility] Address [address] [place] [address] Phone Care Team Providers Care Loss Prevention Operations Manager Name Role Phone Wendy Mathis DO Primary Care Provider + Medical History Medical History Date Comments PAF (paroxysmal atrial fibri llation) (CMS/HCC V24, CMS/HCC V28) DX:PAF (paroxysmal atrial fibrillation) ([facility]) Dyslipidemia DX:Dyslipidemia HTN (hypertension) DX:HTN [...] LAB CHEMISTRY METHOD 11/15/2024 12:11 PM T [facility] LAB Potassium 4.0 3.5 - 5.5 mmol/L LAB CHEMISTRY METHOD 11/15/2024 12:[address] [facility] LAB Chloride 103 96 - 110 mmol/L LAB CHEMISTRY METHOD 11/15/2024 12:[address] [facility] LAB CO2 29 21 - 32 mmol/L LAB CHEMISTRY METHOD 11/15/2024 12:[address] [facility] LAB Anion Gap 6 3 - 11 LAB CHEMISTRY METHOD 11/15/2024 12:11 PM EDT [facility] LAB Glucose 70 70 - 100 mg/dL LAB CHEMISTRY METHOD 11/15/2024 12:[address] [facility] LAB BUN 22 5 - 25 mg/dL LAB CHEMISTRY METHOD 11/15/2024 12:[address] [facility] LAB Creatinine 0.74 0.50 - 1.10 mg/dL LAB CHEMISTRY METHOD 11/15/2024 12:11 PM T [facility] LAB eGFR 82 >=60 mL/min/1. 73m2 LAB CHEMISTRY METHOD 11/15/2024 12:11 PM T [facility] LAB Comment:Calculation based on the Chronic Kidney Disease Epidemiology Collaboration (CKD-EPI) equation refit without adjustment for race. BUN/Creatinine Ratio 29.7 LAB CHEMISTRY METHOD 11/15/2024 12:[address] [facility] LAB Calcium 8.8 8.5 - 10.5 mg/dL LAB CHEMISTRY METHOD 11/15/2024 12:[address] [facility] LAB Blood Venous blood specimen / Unknown Venipuncture / Unknown 11/15/2024 5:31 AM EDT 11/15/2024 11:24 AM EDT us Michael Allen MD LAB BLOOD ORDERABLES Final Resu lt [facility] LAB [address] [place] [address], from Last 3 Months or Most Recently Relevant to Health Maintenance Insurance MEDICARE [facility] Care Teams Loss Prevention Operations Manager Relationship Specialty Start Date End Date Wendy Mathis DO [address] [facility] [address] [place] [address] PCP - General Family Medicine 05/31/17
--- OUTSIDE RECORDS SUMMARY | 2025-03-26 16:51 | XMS_ITS ---
Author Organization [facility] Address [address] [facility] [address] [place] [address] Phone Care Team Providers Care Chisel Worker Name Role Phone Kala Lundberg MD Primary Care Provider Adolfo Raymundo Unavailable Maria A Bolivar CATERPILLAR TRACTOR OPERATOR Unavailable Dejah Shepard VALVE INSPECTOR Unavailable Emiliano Crista C IRON WORKER Unavailable Active Problems Problem Noted Date Diagnosed Date Pulmonary nodules 03/17/2025 Hypothyroidism 01/31/2025 GERD (gastroesophageal reflux disease) Cholelithiasis [...] Anal cancer Treatment Medications No medications scheduled. HYDRATION & SUPPORTIVE CARE* Plan Start Date:08/13/2024 Plan Provider:Crista Cummings CNP Linked Problems Anal cancer Treatment Medications No medications scheduled. Past Treatment and Therapy Plans TREATMENT PLAN Plan Name Start Date Discontinue Date Treatment Medications Discontinue Reason Plan Provider Cycles FLUOROUR ACIL/JA OMYCIN-C 07/23/2024 03/17/2025 fluorouracil (ADRUCIL) CADD pump infusion (total dose > 5000 mg, infusion time > 24 hours) (336 mL)mitoMYcin (MUTAMYCIN) a. Therapy Complete Adolfo Raymundo, SHILOH 1 of 1 cycle started
--- OUTSIDE RECORDS SUMMARY | 2025-03-26 16:52 | XMS_ITS | Encounter Summary ---
Author Organization [facility] Address [address] [facility] [address] [place] [address] Phone Care Team Providers Care Steamtable Worker Name Role Phone Aakash Lundberg MD Primary Care Provider +1- [phone] Reason for Visit * Reason Comments Med Refill Encounter Details Date Type Department Care Team (Late Contact Info) Description 10/04/2022 Refill [facility] [address] [place] [address] Gustavo Pina MD [address] [facility] [address] [place] [phone] Social History Tobacco Use Types Packs/Day Years [...] [facility] [address] [place] [address] Uvaldo Vivar MD [address] [facility] [address] [place] [phone] documented as of this encounter Visit Diagnoses Not on filedocumented in this encounter Care Teams Steamtable Worker Relationship Specialty Start Date End Date Aakash Lundberg MD PCP - General Internal Medicine 04/09/21 documented as of this encounter
--- OUTSIDE RECORDS SUMMARY | 2025-03-26 16:52 | XMS_ITS | Clinical Summary ---
Author Organization [facility], Address [address] [place] [phone] Phone Care Team Providers Care Coat Maker Name Role Phone Aakash Lundberg MD Primary Care Provider +1- [phone] Allergies Active Allergy Reactions Criticality Noted Date [...] time each day 90 tablet 3 03/14/2024 Active dilTIAZem HCl ER 240 MG tablet sustained-relea se 24 hour Take 1 tablet by mouth 1 (one) time each day 02/14/2024 Active Active Problems Problem Noted Date Diagnosed Date Chronic kidney disease, stage 2 (mild) Essential (primary) hypertension 07/07/2022 Systolic murmur 06/29/2021 [...] Visit [facility] [place] [address] [place] [address] Uvaldo Vivar MD [address] [place] [address] Health Maintenance Due Date Last Done Comments Pneumococcal Vaccine: 50+ Years (1 of 2 - PCV) 07/16/1964 Influenza Vaccine (#1) 2024 7, 03/17/2005, 04/24/2001 Colorectal Cancer Screening: Sigmoidoscopy Discontinued 03/11/2000 Hepatitis B Vaccine Aged Out No longe r eligible based on patient's age to complete this topic Insurance Medicare [facility] Medicare Care Teams Coat Maker Relationship Specialty Start Date End Date Aakash Lundberg MD PCP - General Internal Medicine 04/09/21
--- OUTSIDE RECORDS SUMMARY | 2025-03-26 16:52 | XMS_ITS | Encounter Summary ---
Author Organization [facility], Address [address] [place] [address] Phone Care Team Providers Care Set Up Technician Name Role Phone Aakash Lundberg MD Primary Care Provider +1- [phone] Encounter Details Date Type Department Care Team (Late Contact Info) Description 07/16/2022 Documentation Only [facility] [address] [place] [address] Uvaldo Vivar MD [address] [place] [address] [place] [phone] Social History Tobacco Use Types Packs/Day Years [...] Visit [facility] [address] [place] [phone] Uvaldo Vivar MD [address] [place] [address] [address] [place] [address] documented as of this encounter Visit Diagnoses Not on filedocumented in this encounter Care Teams Set Up Technician Relationship Specialty Start Date End Date Aakash Lundberg MD PCP - General Internal Medicine 04/09/21 documented as of this encounter
[2025-03-26 17:00] VITALS: BP 106/52; PULSE 79; RESP 20; TEMP 36.8; O2SAT 96
[2025-03-26 22:11] VITALS: BP 108/52; PULSE 86; RESP 18; TEMP 36.5; O2SAT 94
--- NOTE | 2025-03-26 23:41 | PC.NURSE ---
assist pt to commode at bedside, no BM. pt vomited. pt refused enema, refused nausea medication at this time. pt back in bed, call genaro w/in reach
--- NOTE | 2025-03-26 23:51 | P.HPHOSP_ITS ---
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 Patient mentioned that since her last radiotherapy in August; she has been having abdominal discomfort. Mentions she has not had any bowel movement. Reports passing gas. Mentions decreased appetite. Has had nausea. Denies any fevers. Denies any signs of bleeding. Patient denies any chest pain or palpitations. Denies any urinary symptoms. Review of all other systems is negative except mentioned above ER course: Per ER team, patient has mild diffuse abdominal tenderness; CT abdomen pelvis showed findings concerning for proctitis/colitis/severe stool burden. ER patient tried to do enema-patient refused; tried to do a rectal examination/manual disimpaction-patient refused absolutely. Given pain medications Given Zosyn CT scan also showed vertebral compression fractures but patient denied any fall or injury. Exam grossly nonfocal. [facility] Medical History (Updated 03/27/25 @ 00:53 by Simón Dominguez MD) Paroxysmal atrial fibrillation History of Crohn's disease History of radiation exposure History of diverticulitis Anal squamous cell carcinoma Hemorrhoids Current use of retirement anticoagulation External hemorrhoids Hyperuricemia Vitamin D deficiency Impaired fasting glucose Inflammatory arthritis Multinodular thyroid Mixed stress and urge urinary incontinence Dyslipidemia Osteoporosis COPD (chronic obstructive pulmonary disease) Acquired hypothyroidism Family History Father AAA (abdominal aortic aneurysm) CVA (cerebral vascular accident) Mother Diabetes mellitus HTN (hypertension) Gallbladder cancer Sister Diabetes mellitus Son Substance use disorder Son Substance use disorder Surgical History Hx of colonoscopy S/P partial hysterectomy History of section Social History Household Members: Children Household Members Other:: son Housing: House Housing Other:: [employer] Are you a primary director of primary care to a significant other at home: No Do you presently have visiting nurse or other home services: No Alcohol intake: current Alcohol intake frequency: does not drink Comment: steady on feet in room Patient Tobacco Use Status: Former Tobacco user Tobacco use type: Cigarette Years Smoked: 20 years Smoked in Last 30 Days: No e-Cigarette/Vaping Use: Never Used Second Hand Smoke Exposure: No Use of substances other than those prescribed or required for medical reasons: No Substance Use Type: Marijuana Advance Directives: Yes Advance Directives on File: Yes Advance Directives Date on File: 05/30/20 Do you have a plan to hurt others: No Plan service: No Current occupational status: retired Gender identity: Female Cognitive needs: No Hearing needs: No Vision needs: Yes Meds Allergies Allergy/AdvReac Type Severity Reaction Status Date / Time tetracycline (TETRACYCLINE) Allergy Unknown ITCHINESS, Verified 03/26/25 13:02 rash nitrofurantoin Allergy Swelling Verified 03/26/25 13:02 atorvastatin (Lipitor) AdvReac Unknown Muscle pain Verified 03/26/25 13:02 bactrim Allergy Unknown Elevated Uncoded 02/28/25 13:05 LFTs/Itching/Nausea fentanyl AdvReac Severe Unconscious Uncoded 02/28/25 13:05 Active Medications: Current Medications Acetaminophen (Acetaminophen 325 Mg Tablet) 650 mg PO Q6H PRN PRN Reason: Pain, Mild 1-3,fever,headache Apixaban (Apixaban 5 Mg Tablet) 5 mg PO BID BARBARA Calcium Carbonate (Calcium Carbonate 750 Mg Tab.Chew) 750 mg PO Q4H PRN PRN Reason: Heartburn Docusate Sodium (Docusate Sodium 100 Mg Capsule) 100 mg PO BID BARBARA Hydromorphone HCl (Hydromorphone Hcl 1 Mg/Ml Syringe) 0.5 mg IVPUSH Q4H PRN; Protocol PRN Reason: Pain, Severe (Pain Scale 7-10) Dextrose/Sodium Chloride (D51/2ns) 1,000 mls @ 100 mls/hr IVCONT .Q10H BARBARA Piperacillin Sod/Tazobactam (Sod 3.375 gm/ Sodium Chloride) 50 mls @ 100 mls/hr IV Q6H BARBARA Magnesium Hydroxide (Milk Of Magnesia 30 Ml Oral.Susp) 30 ml PO DAILY PRN PRN Reason: Constipation Melatonin (Melatonin 3 Mg Tablet) 6 mg PO BEDTIME PRN PRN Reason: Insomnia Polyethylene Glycol (Polyethylene Glycol 3350 17 Gm Powd.Pack) 17 gm PO DAILY PRN PRN Reason: Constipation Senna (Sennosides 8.6 Mg Tablet) 17.2 mg PO BEDTIME BARBARA Sodium Chloride (0.9 % Sodium Chloride Flush 3 Ml Syringe) 3 ml IVFLUSH QSHIFT BARBARA Home Medications ?Medication ?Instructions ?Recorded ?Confirmed ?Last Taken ?Type apixaban 5 mg tablet (Eliquis) 5 mg PO BID 05/05/2002/01/25 History flecainide 50 mg tablet 75 mg PO BID 09/09/2202/01/25 History Held on 11/02/24. Instructions: Hold until complete course of azithromycin diltiazem HCl 240 mg 240 mg PO DAILY 07/16/2408/1702/01/25 History tablet,extended release 24 hr Physical Exam 2 Vital Signs and Narrative: Vital Signs: Last Vital Signs Temp 97.7 F 03/26/25 22:11 Pulse 86 03/26/25 22:11 Resp 18 03/26/25 22:11 BP 108/52 L 03/26/25 22:11 Pulse Ox 94 03/26/25 22:11 O2 Del Method Room Air 03/26/25 22:11 BMI result Body Mass Index 20.2 Gen: Appears be in no acute distress HEENT: NCAT, Moist mucosa. Pulmonary: Vesicular breath sounds, fair air entry CVS: Normal S1-S2 Abdomen: BS+, distended, tender diffusely Extremities: Warm well perfused Neuro: Alert and awake. Oriented x3; grossly nonfocal Results Labs 03/26/25 13:26 03/26/25 13:26 Labs: Laboratory Results - last 24 hr 03/26/25 03/26/25 13:26 15:29 MCV 89.4 MCH 28.4 MCHC 31.8 RDW 14.7 Plt Count 296 D MPV 8.5 L Immature Gran % (Auto) Cancelled Neut % (Auto) Cancelled Lymph % (Auto) Cancelled [place] % (Auto) Cancelled Eos % (Auto) Cancelled Baso % (Auto) Cancelled Lymph # (Auto) Cancelled [place] # (Auto) Cancelled Eos # (Auto) Cancelled Baso # (Auto) Cancelled Abs Immat Gran (auto) Cancelled Absolute Neuts (auto) Cancelled Absolute Nucleated RBC 0.000 Nucleated RBC % (auto) 0.0 Neutrophils % (Manual) 69 Band Neutrophils % 17 H Lymphocytes % (Manual) 4 L Monocytes % (Manual) 9 Basophils % (Manual) 1 Abs Neuts (Manual) 7.7 Lymphocytes # (Manual) 0.4 L Monocytes # (Manual) 0.8 Basophils # (Manual) 0.1 Toxic Granulation PRESENT Platelet Estimate NORMAL Plt Morphology Comment NORMAL RBC Morphology NOTED Kellen Cells 3+ (>5) Anion Gap 14 Estim Creat Clear Calc 33.2 Estimated GFR 52 Random Glucose 115 Lactic Acid 2.0 Calcium 8.8 Magnesium 2.0 Total Bilirubin 0.6 AST 16 ALT < 6 Alkaline Phosphatase 120 H Total Protein 6.1 L Albumin 2.6 L Lipase < 4 L Imaging Radiologist's Impressions: Impressions Abdomen/Pelvis CT 03/26/25 16:11 IMPRESSION: Severe distal colitis, proctitis and wall thickening of the anus slightly increased from most recent February 01, 2025 exam. Severe constipation and dilatation of the more proximal colon suggestive of mild secondary obstruction. This does not appear changed. Bilateral renal cysts. Subcentimeter lesion exophytic to the upper pole of the left kidney not compatible with a simple cyst. It is uncertain whether this represents a complex cyst or solid lesion. Left renal hyperdense and low attenuation right renal cysts. Small gallstone in the gallbladder. Transitional lumbar anatomy. New mild superior endplate upper lumbar vertebral body compression fracture designated as L2 and superior endplate L3 and L4 compression fractures unchanged. 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 Noted to have stercoral proctocolitis. Stercoral proctocolitis: Severe constipation: Mild obstruction: Patient denied total examination/enemas on presentation. Given Mag citrate in the ER. Bowel regimen General surgery consult Pain control Continue Zosyn Will defer to day team to consider GI consult as well NPO for now Gentle IV fluids Vertebral compression fracture: Patient exam grossly nonfocal Neurosurgery follow-up recommended Will obtain vitamin-D levels Recommended outpatient follow-up with endocrinology for osteoporosis evaluation/treatment Cholelithiasis: General surgery consulted as mentioned above. Renal cysts/lesion: Nephrology follow-up recommended Mild hyponatremia: Will monitor Atrial fibrillation: Continue home Eliquis Med reconciliation: Resume home medications once med rec is completed by pharmacy DVT prophylaxis: Patient on Eliquis Code status: Full code Quality Stroke Does the patient have a stroke diagnosis?: No VTE Prior VTE?: No VTE Risk Level:: Medical - moderate - high VTE Device Contraindication: Treatment Not Indicated VTE Drug Contraindication: N/A - Med Ordered
[2025-03-27] VITALS (7 sets, daily range): BP systolic 98–144; BP diastolic 49–72; PULSE 70–106; RESP 15–18; TEMP 36.1–36.9; O2SAT 94–98; BMI 22.0
[2025-03-27] MEDS: 0.9 % Sodium Chloride Flush 3 ML SYRINGE IVFLUSH (01:10)
[2025-03-27] MEDS: Dextrose 5 % and 0.45 % NaCl 1,000 ML 100 ML IVCONT ×3 (01:10→21:52)
[2025-03-27 04:29] LABS: Hematocrit 36.6 % (37.0-47.0); Hemoglobin 11.3 g/dl (12.0-16.0); Mean Corpuscular HGB Conc 30.9 g/dl (31.0-35.0); Mean Corpuscular Hemoglobin 28.2 pg (27.0-33.0); Mean Corpuscular Volume 91.3 fL (80.0-98.0); NRBC Abs Auto 0.000 X10*3/uL (0.0-0.012); NRBC Pct Auto 0.0 /100WBC (0.0-0.2); Platelet Count 256 X10*3/uL (160-400); Red Blood Count 4.01 X10*6/uL (4.20-5.50)
[2025-03-27 04:43] LABS: Anion Gap 13 (12-20); Blood Urea Nitrogen 16 mg/dL (9-16); Calcium 8.3 mg/dL (8.4-10.2); Carbon Dioxide 21 mmol/L (22-29); Chloride 105 mmol/L (96-108); Creatinine Clr Calc Pharmacy 38.8; Estimated Glomerular Filt Rate > 60; Potassium 3.6 mmol/L (3.3-5.1); Sodium 135 mmol/L (135-145)
[2025-03-27 05:07] LABS: WBC ABN SCTR FOR CBC 1; White Blood Count 9.1 X10*3/uL (4.8-10.8)
[2025-03-27 05:11] LABS: Band Neutrophils Percent 25 % (3-5); Lymphocytes Absolute Manual 0.5 X10*3/uL (1.2-4.9); Lymphocytes Percent Manual 5 % (20-40); Monocytes Absolute Manual 0.4 X10*3/uL (0.1-1.2); Monocytes Percent Manual 4 % (2-11); Neutrophils Absolute Manual 8.3 X10*3/uL (2.0-8.3); Neutrophils Percent Manual 66 % (45-73)
[2025-03-27 05:12] LABS: RBC Morphology NOTED
[2025-03-27 05:13] LABS: Burr Cells 3+ (>5) /OIF; Toxic Granulation PRESENT
--- NOTE | 2025-03-27 06:29 | PC.NURSE ---
multiple episodes of loose watery stool. assist to the commode 4x overnight. no formed stool yet.
--- NOTE | 2025-03-27 07:20 | PM.IMPN ---
Progress Note: A&P (1) Proctitis: Status: Acute Assessment and Plan: 79 year old female with a history of AFib on eliquis, diverticulosis, Crohn's, anal cancer s/p radiation and chemo, hypothyroidism, COPD who presented to the hospital with worsening abdominal pain since August. 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 intake were aware prior to admission, has bandemia, adult failure to thrive, likely [id number] cachexia hence giving her fluids and challenging her with clear liquid diet Continue antibiotics Follow sepsis workup GI and surgery following currently no surgical management indicated Serial abdominal exams No indication for NG tube as the patient now has bowel movements after enemas which she had initially declined on admission #Adult failure to thrive #Poor p.o. intake prior to admission in a patient with cancer cachexia postradiation Nutrition consult for unintentional weight loss Starting her on clear liquid diet Advanced diet as tolerated # history of Crohn's GI consult Chronic conditions: # AFib were requested continue Eliquis # hypothyroidism-continue levothyroxine # gerd-continue PPI # HLD-continue statin Code status changed to DNR DNI per patient's preference and molst DVT prophylaxis with the Eliquis Patient will need 1-2 more days of monitoring and multispecialty support and challenging with diet and optimization prior to discharge Subjective Subjective Date of Service: 03/27/25 Interval History: Code status updated per her MOLST form-DNR DNI We will attempt enemas-patient receptive of it We will consult GI and surgery for severe constipation and possible need for decompression, colonoscopy Patient has bandemia on admission, was unable to tolerate p.o. diet-was NPO on admission, we are slowly initiating clear liquid diet, nutrition consult, and slowly challenging her with clear liquid diet Review of Systems Review of Systems: Yes all other systems are reviewed and are negative Physical Exam Exam: Exam: General: AOx3, frail and distressed looking, cachectic Resp: CTA bilaterally CVS: S1, S2, RRR GI: Mildly distended, soft bowel sounds Skin: Pale Neuro:Motor grossly intact bilaterally Vital Signs: Vital Signs: Last Vital Signs Temp 97.7 F 03/27/25 06:01 Pulse 106 H 03/27/25 06:01 Resp 18 03/27/25 06:01 BP 144/72 H 03/27/25 06:01 Pulse Ox 96 03/27/25 06:01 O2 Del Method Room Air 03/27/25 06:01 BMI result Body Mass Index 20.2 Objective Data Current Medications Acetaminophen (Acetaminophen 325 Mg Tablet) 650 mg PO Q6H PRN PRN Reason: Pain, Mild 1-3,fever,headache Apixaban (Apixaban 5 Mg Tablet) 5 mg PO BID BARBARA Calcium Carbonate (Calcium Carbonate 750 Mg Tab.Chew) 750 mg PO Q4H PRN PRN Reason: Heartburn Docusate Sodium (Docusate Sodium 100 Mg Capsule) 100 mg PO BID BARBARA Hydromorphone HCl (Hydromorphone Hcl 1 Mg/Ml Syringe) 0.5 mg IVPUSH Q4H PRN; Protocol PRN Reason: Pain, Severe (Pain Scale 7-10) Dextrose/Sodium Chloride (D51/2ns) 1,000 mls @ 100 mls/hr IVCONT .Q10H [facility] Last Admin: 03/27/25 01:10 Dose: 100 mls/hr Piperacillin Sod/Tazobactam (Sod 3.375 gm/ Sodium Chloride) 50 mls @ 100 mls/hr IV Q6H [facility] Last Infusion: 03/27/25 03:46 Dose: Infused Magnesium Hydroxide (Milk Of Magnesia 30 Ml Oral.Susp) 30 ml PO DAILY PRN PRN Reason: Constipation Melatonin (Melatonin 3 Mg Tablet) 6 mg PO BEDTIME PRN PRN Reason: Insomnia Polyethylene Glycol (Polyethylene Glycol 3350 17 Gm Powd.Pack) 17 gm PO DAILY PRN PRN Reason: Constipation Senna (Sennosides 8.6 Mg Tablet) 17.2 mg PO BEDTIME [facility] Sodium Chloride (0.9 % Sodium Chloride Flush 3 Ml Syringe) 3 ml IVFLUSH QSHIFT [facility] Last Admin: 03/27/25 01:10 Dose: 3 ml Labs 03/27/25 03:57 03/27/25 03:57 Labs: Laboratory Results - last 24 hr 03/26/25 03/26/25 03/27/25 13:26 15:29 03:57 MCV 89.4 91.3 MCH 28.4 28.2 MCHC 31.8 30.9 L RDW 14.7 14.9 Plt Count 296 D 256 MPV 8.5 L 8.4 L Immature Gran % (Auto) Cancelled Cancelled Neut % (Auto) Cancelled Cancelled Lymph % (Auto) Cancelled Cancelled [place] % (Auto) Cancelled Cancelled Eos % (Auto) Cancelled Cancelled Baso % (Auto) Cancelled Cancelled Lymph # (Auto) Cancelled Cancelled [place] # (Auto) Cancelled Cancelled Eos # (Auto) Cancelled Cancelled Baso # (Auto) Cancelled Cancelled Abs Immat Gran (auto) Cancelled Cancelled Absolute Neuts (auto) Cancelled Cancelled Absolute Nucleated RBC 0.000 0.000 Nucleated RBC % (auto) 0.0 0.0 Neutrophils % (Manual) 69 66 Band Neutrophils % 17 H 25 H Lymphocytes % (Manual) 4 L 5 L Monocytes % (Manual) 9 4 Basophils % (Manual) 1 Abs Neuts (Manual) 7.7 8.3 Lymphocytes # (Manual) 0.4 L 0.5 L Monocytes # (Manual) 0.8 0.4 Basophils # (Manual) 0.1 Toxic Granulation PRESENT PRESENT Platelet Estimate NORMAL NORMAL Plt Morphology Comment NORMAL NORMAL RBC Morphology NOTED NOTED [place] Cells 3+ (>5) 3+ (>5) Anion Gap 14 13 Estim Creat Clear Calc 33.2 38.8 Estimated GFR 52 > 60 Random Glucose 115 122 H Lactic Acid 2.0 Calcium 8.8 8.3 L Magnesium 2.0 Total Bilirubin 0.6 AST 16 ALT < 6 Alkaline Phosphatase 120 H Total Protein 6.1 L Albumin 2.6 L Lipase < 4 L 25-OH Vitamin D Total 31.1 Quality Stroke Does the patient have a stroke diagnosis?: No VTE Prior VTE?: No VTE Risk Level:: Medical - moderate - high VTE Device Contraindication: Treatment Not Indicated VTE Drug Contraindication: N/A - Med Ordered
--- NOTE | 2025-03-27 07:39 | P.CONGS_ITS ---
History of Present Illness Consult details Consult date: 03/27/25 <Harris Jaramillo PA-C - Last Filed: 03/27/25 08:07> Reason for consult: abdominal pain <Harris Jaramillo PA-C - Last Filed: 03/27/25 08:07> Narrative: 79 year old female with a history of AFib on eliquis, diverticulosis, Crohn's, anal cancer s/p radiation and chemo, hypothyroidism, COPD who presented to the hospital with worsening abdominal pain since August when she completed her radiation. She reports some associated nausea, decreased appetite, weight loss since beginning chemo and radiation. CT of the abdomen and pelvis showing concern for proctocolitis and severe distal colitis, with a large stool burden proximal to this inflamed area. Additional workup did not show leukocytosis, electrolytes appear at her baseline. She is unsure when her last bowel movement was, but thinks she might have had one overnight. States she is passing lots of gas. She has been started on IV antibiotics, bowel regimen. Has declined SHARLENE and enemas to this point. She contineus to decline exam but is willing to try enema. Surgical history significatn for C section, partial hysterectomy. <Harris Jaramillo PA-C - Last Filed: 03/27/25 08:07> Review of Systems 2 Review of Systems: Yes all other systems are reviewed and are negative < Harris Jaramillo PA-C - Last Filed: 03/27/25 08:07> [facility] Past Medical History Medical History: Medical History Paroxysmal atrial fibrillation History of Crohn's disease History of radiation exposure History of diverticulitis Anal squamous cell carcinoma Hemorrhoids Current use of skilled nursing anticoagulation External hemorrhoids Hyperuricemia Vitamin D deficiency Impaired fasting glucose Inflammatory arthritis Multinodular thyroid Mixed stress and urge urinary incontinence Dyslipidemia Osteoporosis COPD (chronic obstructive pulmonary disease) Acquired hypothyroidism <Harris Jaramillo PA-C - Last Filed: 03/27/25 08:07> Family History Family History: Family History Father AAA (abdominal aortic aneurysm) CVA (cerebral vascular accident) Mother Diabetes mellitus HTN (hypertension) Gallbladder cancer Sister Diabetes mellitus Son Substance use disorder Son Substance use disorder <Harris Jaramillo PA-C - Last Filed: 03/27/25 08:07> Surgical History Surgical History: Surgical History Hx of colonoscopy S/P partial hysterectomy History of section <Harris Jaramillo PA-C - Last Filed: 03/27/25 08:07> Social History Social History: Social History Household Members: Children Household Members Other:: son Housing: House Housing Other:: Duplex Are you a primary direct care staffer to a significant other at home: No Do you presently have visiting nurse or other home services: Yes Alcohol intake: current Alcohol intake frequency: does not drink Comment: steady on feet in room Patient Tobacco Use Status: Former Tobacco user Tobacco use type: Cigarette Years Smoked: 20 years Smoked in Last 30 Days: No e-Cigarette/Vaping Use: Never Used Second Hand Smoke Exposure: No Use of substances other than those prescribed or required for medical reasons: No Substance Use Type: Marijuana Have you been hit, kicked, punched, or otherwise hurt by someone within the past year? If so, by whom?: No Do you feel safe in your current relationship?: No Current Relationship Is there a partner from a previous relationship who is making you feel unsafe now?: No Are you made to feel afraid or neglected: No Advance Directives: Yes Advance Directives on File: Yes Advance Directives Date on File: 05/30/20 Do you have a plan to hurt others: No Plan Recently lost weight without trying: No Eating poorly because of decreased appetite: No Nutrition Risks: No Nutritional Risk Patient : No : No Poor oral hygiene: No service: No Current occupational status: retired Gender identity: Female Cognitive needs: No Hearing needs: No Vision needs: Yes <Harris Jaramillo PA-C - Last Filed: 03/27/25 08:07> Meds Allergies/Adverse reactions: Allergies Allergy/AdvReac Type Severity Reaction Status Date / Time tetracycline (TETRACYCLINE) Allergy Unknown ITCHINESS, Verified 03/26/25 13:02 rash nitrofurantoin Allergy Swelling Verified 03/26/25 13:02 atorvastatin (Lipitor) AdvReac Unknown Muscle pain Verified 03/26/25 13:02 bactrim Allergy Unknown Elevated Uncoded 02/28/25 13:05 LFTs/Itching/Nausea fentanyl AdvReac Severe Unconscious Uncoded 02/28/25 13:05 <Harris Jaramillo PA-C - Last Filed: 03/27/25 08:07> Active Medications: Current Medications Acetaminophen (Acetaminophen 325 Mg Tablet) 650 mg PO Q6H PRN PRN Reason: Pain, Mild 1-3,fever,headache Apixaban (Apixaban 5 Mg Tablet) 5 mg PO BID [facility] Calcium Carbonate (Calcium Carbonate 750 Mg Tab.Chew) 750 mg PO Q4H PRN PRN Reason: Heartburn Docusate Sodium (Docusate Sodium 100 Mg Capsule) 100 mg PO BID [facility] Hydromorphone HCl (Hydromorphone Hcl 1 Mg/Ml Syringe) 0.5 mg IVPUSH Q4H PRN; Protocol PRN Reason: Pain, Severe (Pain Scale 7-10) Dextrose/Sodium Chloride (D51/2ns) 1,000 mls @ 100 mls/hr IVCONT .Q10H [facility] Last Admin: 03/27/25 01:10 Dose: 100 mls/hr Piperacillin Sod/Tazobactam (Sod 3.375 gm/ Sodium Chloride) 50 mls @ 100 mls/hr IV Q6H [facility] Last Infusion: 03/27/25 03:46 Dose: Infused Magnesium Hydroxide (Milk Of Magnesia 30 Ml Oral.Susp) 30 ml PO DAILY PRN PRN Reason: Constipation Melatonin (Melatonin 3 Mg Tablet) 6 mg PO BEDTIME PRN PRN Reason: Insomnia Polyethylene Glycol (Polyethylene Glycol 3350 17 Gm Powd.Pack) 17 gm PO DAILY PRN PRN Reason: Constipation Senna (Sennosides 8.6 Mg Tablet) 17.2 mg PO BEDTIME [facility] Sodium Biphosphate/Sodium Phosphate (Sodium Phosphate,[place]-Dibasic 133 Ml Enema) 133 ml [place] ONCE PRN PRN Reason: Constipation Sodium Chloride (0.9 % Sodium Chloride Flush 3 Ml Syringe) 3 ml IVFLUSH QSHIFT [facility] Last Admin: 03/27/25 01:10 Dose: 3 ml <Harris Jaramillo PA-C - Last Filed: 03/27/25 08:07> Home medications: Home Medications ?Medication ?Instructions ?Recorded ?Confirmed ?Last Taken ?Type apixaban 5 mg tablet (Eliquis) 5 mg PO BID 05/05/2003/26/25 History flecainide 50 mg tablet 75 mg PO BID 09/09/2203/26/25 History Held on 11/02/24. Instructions: Hold until complete course of azithromycin diltiazem HCl 240 mg 240 mg PO DAILY 07/16/2407/1703/26/25 History tablet,extended release 24 hr levothyroxine 75 mcg tablet 75 mcg PO DAILY@0600 03/2703/27/25 03/26/25 History <Harris Jaramillo PA-C - Last Filed: 03/27/25 08:07> Physical Exam 2 Vital Signs: Vital Signs: Last Vital Signs Temp 97.7 F 03/27/25 06:01 Pulse 106 H 03/27/25 06:01 Resp 18 03/27/25 06:01 BP 144/72 H 03/27/25 06:01 Pulse Ox 96 03/27/25 06:01 O2 Del Method Room Air 03/27/25 06:01 BMI result Body Mass Index 20.2 <MADAN Anderson Last Filed: 03/27/25 08:07> Const: General: comfortable and no acute distress <MADAN Anderson Last Filed: 03/27/25 08:07> Orientation/consciousness: patient oriented x3 <MADAN Anderson Last Filed: 03/27/25 08:07> Resp: Effort & Inspection: normal respiratory effort and able to speak in complete sentences <MADAN Anderson Last Filed: 03/27/25 08:07> GI: Inspection: No distended <MADAN Anderson Last Filed: 03/27/25 08:07> Palpation (GI): Soft to palpation, Tenderness to palpation present (GI) (generalized) suprapubicly (focal point) and no guarding <MADAN Anderson Last Filed: 03/27/25 08:07> Rectal Exam - Female: deferred <MADAN Anderson Last Filed: 03/27/25 08:07> Neuro: General: patient oriented x3 <MADAN Anderson Last Filed: 03/27/25 08:07> Results Labs Result diagrams: 03/27/25 03:57 03/27/25 03:57 <Harris Jaramillo PA-C - Last Filed: 03/27/25 08:07> Labs: Abnormal lab results 03/26/25 03/27/25 Range/Units 13:26 03:57 RBC 4.01 L (4.20-5.50) X10*6/uL Hgb 11.3 L (12.0-16.0) g/dl Hct 36.6 L (37.0-47.0) % MCHC 30.9 L (31.0-35.0) g/dl MPV 8.5 L 8.4 L (9.4-12.3) fL Band Neutrophils % 17 H 25 H (3-5) % Lymphocytes % (Manual) 4 L 5 L (20-40) % Lymphocytes # (Manual) 0.4 L 0.5 L (1.2-4.9) X10*3/uL Sodium 133 L (135-145) mmol/L Carbon Dioxide 21 L (22-29) mmol/L BUN 17 H (9-16) mg/dL Random Glucose 122 H (60-115) mg/dL Calcium 8.3 L (8.4-10.2) mg/dL Alkaline Phosphatase 120 H (39-117) U/L Total Protein 6.1 L (6.5-8.0) g/dL Albumin 2.6 L (3.5-5.0) g/dL Lipase < 4 L (8-78) U/L Short CBC 03/26/25 03/27/25 Range/Units 13:26 03:57 WBC 8.9 9.1 (4.8-10.8) X10*3/uL Hgb 12.9 D 11.3 L (12.0-16.0) g/dl Hct 40.6 36.6 L (37.0-47.0) % Plt Count 296 D 256 (160-400) X10*3/uL BMP 03/26/25 03/27/25 13:26 03:57 Sodium 133 L 135 Potassium 4.2 3.6 Chloride 99 105 Carbon Dioxide 24 21 L BUN 17 H 16 Creatinine 1.02 0.87 Calcium 8.8 8.3 L Liver Function 03/26/25 Range/Units 13:26 Total Bilirubin 0.6 (0.0-1.0) mg/dL AST 16 (5-31) U/L ALT < 6 (0-31) U/L Alkaline Phosphatase 120 H (39-117) U/L Albumin 2.6 L (3.5-5.0) g/dL All other labs normal. <Harris Jaramillo PA-C - Last Filed: 03/27/25 08:07> Assessment and Plan (1) Proctitis: Status: Acute <Harris Jaramillo PA-C - Last Filed: 03/27/25 08:07> 79-year-old female well known to me for anal squamous cell carcinoma Also with known proctocolitis in the past Admitted for lower abdominal pain Cat scan images reviewed - note of thickening of the wall of the sigmoid and rectum consistent with proctocolitis Recommend GI follow up Patient had undergone radiation for squamous cell carcinoma of the anus IV hydration Bowel regimen for constipation Seen and examined independently <Rene Ray MD - Last Filed: 03/27/25 08:36> 79 year old female with a history of AFib on eliquis, diverticulosis, Crohn's, anal cancer s/p radiation and chemo, hypothyroidism, COPD who presented to the hospital with worsening abdominal pain since August. She has associated intermittent nausea, bloating, decreased appetite. She reports passing gas but cannot rememeber her last BM. Possibly passed one overnight but is unclear. Workup in the ED included CT of the abdomen, showeing severe distal colitis and proctitis. Proxiaml to this inflammation there is a large stool burden. Patient declining digital rectal exam. On exam she is mildly tender throughout, focal point in the suprapubic area. She has been started on IV antibiotics, Zosyn, and a bowel regimen. She had previously declined enemas but was willing to try this after discussion. At this time no plan for surgical intervention. For now would recommend continuing a good bowel regimen, would add in an enema such as fleet or glycerin to reduce some of her large stool burden. continue antibiotics bowel regimen, recommend adding enema okay to have clear liquids for now. 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 <Harris Jaramillo PA-C - Last Filed: 03/27/25 08:07> 79 year old female with a history of AFib on eliquis, diverticulosis, Crohn's, anal cancer s/p radiation and chemo, hypothyroidism, COPD who presented to the hospital with worsening abdominal pain since August. She has associated intermittent nausea, bloating, decreased appetite. She reports passing gas but cannot rememeber her last BM. Possibly passed one overnight but is unclear. Workup in the ED included CT of the abdomen, showeing severe distal colitis and proctitis. Proxiaml to this inflammation there is a large stool burden. Patient declining digital rectal exam. On exam she is mildly tender throughout, focal point in the suprapubic area. She has been started on IV antibiotics, Zosyn, and a bowel regimen. She had previously declined enemas but was willing to try this after discussion. At this time no plan for surgical intervention. For now would recommend continuing a good bowel regimen, would add in an enema such as fleet or glycerin to reduce some of her large stool burden. continue antibiotics bowel regimen, recommend adding enema okay to have clear liquids for now. Would also recommend nutrition consult as she reports skilled nursing decreased appetite recommend GI follow up, she is well known to the practice. Patient seen and examined and the radiologic images reviewed. I concur with the above assessment. She was noted to have several bowel movements today after starting a bowel regime. Abdomen is still somewhat distended. Okay to start clear liquids today. We will continue to monitor response to bowel regime. < Wai Mena MD - Last Filed: 03/27/25 14:30> Procedures Date of Service Date of Service: 03/27/25 <Harris Jaramillo PA-C - Last Filed: 03/27/25 08:07> 03/27/25 <Rene Ray MD - Last Filed: 03/27/25 08:36> 03/27/25 <Wai Mena MD - Last Filed: 03/27/25 14:30>
--- NOTE | 2025-03-27 08:38 | PHA.MEDREC ---
Addendum entered by Shell Gonzalez RPh 03/27/25 08:50: Reviewed by [facility] Original Note: Pharmacy Consult ? Medication Reconciliation Pharmacy has completed the medication reconciliation. Spoke with pt and she confirmed her medications. Pt confirmed her Eliquis 5mg tab BID and took that last yesterday along with her other medications and she is still using Tramadol as needed for pain (LF 01/21 for 13 days QTY 40.
--- NOTE | 2025-03-27 15:53 | MHC.CM.PN ---
Addendum entered by Apolonia Pinon RN 03/27/25 16:02: [facility] confirmed patient is active w/ SN/[facility] Original Note: IMM delivered. Patient lives in a duplex, shares one unit with a son, other son lives upstairs. Reports she is independent w/ dressing/bathing. Ambulates w/ a walker. Uses a w/c in the community. PCP Kala Lundberg MD Reports HCP is her daughter, Norma. Copy requested. Says she was active w/ [facility], but isn't sure if she is still active. Has been to [facility] [place] in the past. DP: Home, ? VNA services, son to transport. Referral sent to [facility] to determine if patient is active. CM will continue to follow.
--- NOTE | 2025-03-27 17:00 | PM.GICN ---
History of Present Illness Data of Consult Service Date: 03/27/25 Primary Care Provider: Kala Lundberg MD HPI Reason for consult: abdominal pain 79-year-old female with a past medical history of AFib on Eliquis, Crohn's disease, history of diverticulitis, squamous cell carcinoma of the anus status post chemotherapy/radiotherapy-last received in August, stress incontinence, COPD, hypothyroidism who I am seeing for assessment for abdominal pain She has had recurrent issues with constipation and abdominal distention since end of her treatment for anal ca. She now had few days of worsening LLQ crampy abdominal pain, without any relieving or exacerbating factors. She has been passing gas but no bowel movements for last several days. She has mild nausea, but denies fevers or chills, rigors. NO melena, or rectal lbeeding. She saw surgery and was placed on laxative regimen with passage of stools whihc has relieved some of her discomfort IMAGING: CT: proctitis/colitis/severe stool burden. LAB:S mild anemia, no raised WCC, neg lactate Sigmoidoscopy 11/16- colitis, confirmed on bx Review of Systems Review of Systems: Constitutional : No Weight loss, No Fever, No Chills ENT/Mouth : No sore throat, No Rhinorrhea Eyes: No Swelling, No Redness Cardiovascular : No Chest Pain, No SOB, No Edema Respiratory : No Cough, No Sputum, No Wheezing Gastrointestinal : see HPI Genitourinary : NO Dysuria, No Urinary Frequency, No Hematuria, No Urgency Musculoskeletal : no joint pain, No Myalgias, No Joint Swelling Skin : No Skin Lesions, No rash Neuro : No Weakness, No Numbness, No Dizziness, No Headache Psych : No Anxiety/Panic, No Depression Heme/Lymph: No Bruising, No Lymphadenopathy Endocrine : No Polyuria, No Polydipsia All other systems reviewed and are negative. [facility] Past Medical History Medical History Paroxysmal atrial fibrillation History of Crohn's disease History of radiation exposure History of diverticulitis Anal squamous cell carcinoma Hemorrhoids Current use of correction anticoagulation External hemorrhoids Hyperuricemia Vitamin D deficiency Impaired fasting glucose Inflammatory arthritis Multinodular thyroid Mixed stress and urge urinary incontinence Dyslipidemia Osteoporosis COPD (chronic obstructive pulmonary disease) Acquired hypothyroidism Family History Family History Father AAA (abdominal aortic aneurysm) CVA (cerebral vascular accident) Mother Diabetes mellitus HTN (hypertension) Gallbladder cancer Sister Diabetes mellitus Son Substance use disorder Son Substance use disorder Surgical History Surgical History Hx of colonoscopy S/P partial hysterectomy History of section Social History Social History Household Members: Children Household Members Other:: son Housing: House Housing Other:: Duplex Are you a primary cattle care worker to a significant other at home: No Do you presently have visiting nurse or other home services: Yes Alcohol intake: current Alcohol intake frequency: does not drink Comment: steady on feet in room Patient Tobacco Use Status: Former Tobacco user Tobacco use type: Cigarette Years Smoked: 20 years Smoked in Last 30 Days: No e-Cigarette/Vaping Use: Never Used Second Hand Smoke Exposure: No Use of substances other than those prescribed or required for medical reasons: No Substance Use Type: Marijuana Have you been hit, kicked, punched, or otherwise hurt by someone within the past year? If so, by whom?: No Do you feel safe in your current relationship?: No Current Relationship Is there a partner from a previous relationship who is making you feel unsafe now?: No Are you made to feel afraid or neglected: No Advance Directives: Yes Advance Directives on File: Yes Advance Directives Date on File: 05/30/20 Do you have a plan to hurt others: No Plan Recently lost weight without trying: No Eating poorly because of decreased appetite: No Nutrition Risks: No Nutritional Risk Patient : No : No Poor oral hygiene: No service: No Current occupational status: retired Gender identity: Female Cognitive needs: No Hearing needs: No Vision needs: Yes Meds Allergies Allergy/AdvReac Type Severity Reaction Status Date / Time tetracycline (TETRACYCLINE) Allergy Unknown ITCHINESS, Verified 03/26/25 13:02 rash nitrofurantoin Allergy Swelling Verified 03/26/25 13:02 atorvastatin (Lipitor) AdvReac Unknown Muscle pain Verified 03/26/25 13:02 bactrim Allergy Unknown Elevated Uncoded 02/28/25 13:05 LFTs/Itching/Nausea fentanyl AdvReac Severe Unconscious Uncoded 02/28/25 13:05 Active Medications: Current Medications Acetaminophen (Acetaminophen 325 Mg Tablet) 650 mg PO Q6H PRN PRN Reason: Pain, Mild 1-3,fever,headache Apixaban (Apixaban 5 Mg Tablet) 5 mg PO BID [facility] Last Admin: 03/27/25 08:04 Dose: 5 mg Calcium Carbonate (Calcium Carbonate 750 Mg Tab.Chew) 750 mg PO Q4H PRN PRN Reason: Heartburn Docusate Sodium (Docusate Sodium 100 Mg Capsule) 100 mg PO BID [facility] Last Admin: 03/27/25 08:04 Dose: 100 mg Hydromorphone HCl (Hydromorphone Hcl 1 Mg/Ml Syringe) 0.5 mg IVPUSH Q4H PRN; Protocol PRN Reason: Pain, Severe (Pain Scale 7-10) Dextrose/Sodium Chloride (D51/2ns) 1,000 mls @ 100 mls/hr IVCONT .Q10H [facility] Last Admin: 03/27/25 08:59 Dose: 100 mls/hr Piperacillin Sod/Tazobactam (Sod 3.375 gm/ Sodium Chloride) 50 mls @ 100 mls/hr IV Q6H [facility] Last Infusion: 03/27/25 14:19 Dose: Infused Magnesium Hydroxide (Milk Of Magnesia 30 Ml Oral.Susp) 30 ml PO DAILY PRN PRN Reason: Constipation Melatonin (Melatonin 3 Mg Tablet) 6 mg PO BEDTIME PRN PRN Reason: Insomnia Polyethylene Glycol (Polyethylene Glycol 3350 17 Gm Powd.Pack) 17 gm PO DAILY PRN PRN Reason: Constipation Senna (Sennosides 8.6 Mg Tablet) 17.2 mg PO BEDTIME [facility] Sodium Biphosphate/Sodium Phosphate (Sodium Phosphate,[place]-Dibasic 133 Ml Enema) 133 ml [place] ONCE PRN PRN Reason: Constipation Sodium Chloride (0.9 % Sodium Chloride Flush 3 Ml Syringe) 3 ml IVFLUSH QSHIFT [facility] Last Admin: 03/27/25 14:19 Dose: Not Given Home Medications ?Medication ?Instructions ?Recorded ?Confirmed ?Last Taken ?Type apixaban 5 mg tablet (Eliquis) 5 mg PO BID 05/05/20 03/27/25 03/26/25 History flecainide 50 mg tablet 75 mg PO BID 09/09/22 03/27/25 03/26/25 History Held on 11/02/24. Instructions: Hold until complete course of azithromycin diltiazem HCl 240 mg 240 mg PO DAILY 07/16/24 03/27/25 03/26/25 History tablet,extended release 24 hr levothyroxine 75 mcg tablet 75 mcg PO DAILY@0600 03/27/25 03/27/25 03/26/25 History Physical Exam Exam: Exam: EXAM: GENERAL: The patient is frail VITAL SIGNS:see workflow HEENT: Nonicteric sclerae, PERRLA, EOMI. Oropharynx clear. Moist mucous membranes. Conjunctivae appear well perfused. No thyroid mass. CHEST: Chest wall is nontender. HEART: Regular rate and rhythm without murmurs. LUNGS: Clear to auscultation bilaterally. ABDOMEN: distended and tympanic, positive bowel sounds, nontender, no organomegaly.no flank tenderness SKIN: No rash, no excessive bruising, petechiae, or purpura. NEUROLOGIC: Cranial nerves II-XII intact without motor/sensory deficit. Psych: normal affect Vital Signs: Vital Signs: Last Vital Signs Temp 98.4 F 03/27/25 15:37 Pulse 84 03/27/25 15:37 Resp 18 03/27/25 15:37 BP 118/56 L 03/27/25 15:37 Pulse Ox 97 03/27/25 15:37 O2 Del Method Room Air 03/27/25 15:37 BMI result Body Mass Index 22.0 Results Labs 03/27/25 03:57 03/27/25 03:57 Labs: Short CBC 03/27/25 Range/Units 03:57 WBC 9.1 (4.8-10.8) X10*3/uL Hgb 11.3 L (12.0-16.0) g/dl Hct 36.6 L (37.0-47.0) % Plt Count 256 (160-400) X10*3/uL BMP 03/27/25 03:57 Sodium 135 Potassium 3.6 Chloride 105 Carbon Dioxide 21 L BUN 16 Creatinine 0.87 Calcium 8[address] scan - abdomen: Attestation: I personally reviewed and interpreted this imaging study as follows: (constipation, colitis, and proctitis ) Assessment and Plan (1) Abdominal pain, LLQ (left lower quadrant): Status: Acute Plan 1/ Constipation, possibly with stercoral colitis and proctitis or residual effect of prior radiation with narrowing of sigmoid. she is alos on tramadol per chart but unclear is she needs this and is taking it or noit PLAN: 1/ cont with laxative regimen, low residue diet 2/ may need repeat sigmoidoscopy to re eval area, may benefit from mesalamine enemas --will see how she does with laxative regimen as being given currently 3/confirm tramadol hx with family or pharmacy Procedures Date of Service Date of Service: 03/27/25
[2025-03-28 03:23] VITALS: BP 110/53; PULSE 66; RESP 15; TEMP 36.1; O2SAT 97
--- NOTE | 2025-03-28 03:38 | HO.SKINPHOTO ---
Location: coccyx/buttocks Category: Stage: Length: Width: Depth: cm
--- NOTE | 2025-03-28 07:21 | P.PNGS_ITS ---
Subjective Subjective Date of Service: 03/28/25 <Harris Jaramillo PA-C - Last Filed: 03/28/25 08:14> 03/29/25 <Rene Ray MD - Last Filed: 03/29/25 08:46> Interval history: some increased abdominal pain today, 09/01, crampy abdominal pain in LLQ. Passed multiple bowel movements yesterday. mild nausea, burping <MADAN Anderson Last Filed: 03/28/25 08:14> Physical Exam 2 Vital Signs: Vital Signs: Last Vital Signs Temp 96.9 F 03/28/25 03:23 Pulse 66 03/28/25 03:23 Resp 15 03/28/25 03:23 BP 110/53 L 03/28/25 03:23 Pulse Ox 97 03/28/25 03:23 O2 Del Method Room Air 03/28/25 03:23 BMI result Body Mass Index 22.0 <Harris Jaramillo PA-C - Last Filed: 03/28/25 08:14> Const: General: comfortable and no acute distress <Harris Jaramillo PA-C - Last Filed: 03/28/25 08:14> Orientation/consciousness: patient oriented x3 <MADAN Anderson Last Filed: 03/28/25 08:14> Resp: Effort & Inspection: normal respiratory effort and able to speak in complete sentences <Harris Jaramillo PA-C - Last Filed: 03/28/25 08:14> GI: Inspection: Yes distended (mild) <Harris Jaramillo PA-C - Last Filed: 03/28/25 08:14> Palpation (GI): Soft to palpation, Tenderness to palpation present (GI) (lower abdomen) and no guarding <Harris Jaramillo PA-C - Last Filed: 03/28/25 08:14> Neuro: General: patient oriented x3 <MADAN Anderson Last Filed: 03/28/25 08:14> Objective Data Active Medications Acetaminophen (Acetaminophen 325 Mg Tablet) 650 mg PO Q6H PRN PRN Reason: Pain, Mild 1-3,fever,headache Last Admin: 03/27/25 21:01 Dose: 650 mg Documented By: JM Apixaban (Apixaban 5 Mg Tablet) 5 mg PO BID [facility] Last Admin: 03/27/25 20:58 Dose: 5 mg Documented By: JM Calcium Carbonate (Calcium Carbonate 750 Mg Tab.Chew) 750 mg PO Q4H PRN PRN Reason: Heartburn Docusate Sodium (Docusate Sodium 100 Mg Capsule) 100 mg PO BID [facility] Last Admin: 03/27/25 21:10 Dose: Not Given Documented By: JM Non-Admin Reason: Pt having multiple loose stools Hydromorphone HCl (Hydromorphone Hcl 1 Mg/Ml Syringe) 0.5 mg IVPUSH Q4H PRN; Protocol PRN Reason: Pain, Severe (Pain Scale 7-10) Dextrose/Sodium Chloride (D51/2ns) 1,000 mls @ 100 mls/hr IVCONT .Q10H [facility] Last Infusion: 03/28/25 02:46 Dose: 100 mls/hr Documented By: JM Piperacillin Sod/Tazobactam (Sod 3.375 gm/ Sodium Chloride) 50 mls @ 100 mls/hr IV Q6H [facility] Last Infusion: 03/28/25 02:46 Dose: Infused Documented By: JM Magnesium Hydroxide (Milk Of Magnesia 30 Ml Oral.Susp) 30 ml PO DAILY PRN PRN Reason: Constipation Melatonin (Melatonin 3 Mg Tablet) 6 mg PO BEDTIME PRN PRN Reason: Insomnia Last Admin: 03/27/25 21:01 Dose: 6 mg Documented By: JM Polyethylene Glycol (Polyethylene Glycol 3350 17 Gm Powd.Pack) 17 gm PO DAILY PRN PRN Reason: Constipation Senna (Sennosides 8.6 Mg Tablet) 17.2 mg PO BEDTIME [facility] Last Admin: 03/27/25 21:10 Dose: Not Given Documented By: JM Non-Admin Reason: Pt having multiple loose stools Sodium Biphosphate/Sodium Phosphate (Sodium Phosphate,Mitchell-Dibasic 133 Ml Enema) 133 ml MD ONCE PRN PRN Reason: Constipation Sodium Chloride (0.9 % Sodium Chloride Flush 3 Ml Syringe) 3 ml IVFLUSH QSHIFT [facility] Last Admin: 03/27/25 22:26 Dose: Not Given Documented By: JM Non-Admin Reason: IV Running <Harris Jaramillo PA-C - Last Filed: 03/28/25 08:14> Labs CBC & Chem 7: 03/27/25 03:57 03/29/25 05:41 <Harris Jaramillo PA-C - Last Filed: 03/28/25 08:14> Microbiology Microbiology Results: Microbiology 03/26/25 15:31 Blood Culture - Preliminary Blood - Venous No growth after 24 hours. 03/26/25 15:29 Blood Culture - Preliminary Blood - Venous No growth after 24 hours. <Harris Jaramillo PA-C - Last Filed: 03/28/25 08:14> Procedures Date of Service Date of Service: 03/28/25 <Harris Jaramillo PA-C - Last Filed: 03/28/25 08:14> 03/29/25 <Rene Ray MD - Last Filed: 03/29/25 08:46> Progress Note: A&P Assessment and plan (1) Abdominal pain, LLQ (left lower quadrant): Status: Acute <Harris Jaramillo PA-C - Last Filed: 03/28/25 08:14> Assessment and Plan: Now passing BMs still having LLQ pain says she is very weak abd soft with tenderness ok to have clear liquids GI ffup seen and examined independently <Rene Ray MD - Last Filed: 03/29/25 08:46> Assessment and Plan: 79-year-old female admitted for proctocolitis, high stool burden. Feeling some increased cramping abdominal pain today. Pain is 5/10. With some associated nausea, burping, bloating. She did pass multiple good size bowel movements yesterday, this and her pain is likely due to the aggressive bowel regimen, enemas yesterday. Diet was also advanced to clear liquid diet as patient was very hungry. Seems to be tolerating. On exam she is mildly distended, tender in the lower abdomen. Abdomen remains soft. No plan for surgery currently. Would continue with bowel regimen for now. Dr. Chung recommending possible repeat flex sig, she had sigmoidoscopy in October showing diffuse inflammation of the sigmoid colon with some luminal narrowing. continue bowel regimen serial abdominal exams antiemetics as needed continue CLD, posibly advance this afternoon <Harris Jaramillo PA-C - Last Filed: 03/28/25 08:14> Time Spent With Patient Time: Total time managing care of this patient today ____ minutes. <Harris Jaramillo PA-C - Last Filed: 03/28/25 08:14> Quality Stroke Does the patient have a stroke diagnosis?: No <Harris Jaramillo PA-C - Last Filed: 03/28/25 08:14> VTE Prior VTE?: No <Harris Jaramillo PA-C - Last Filed: 03/28/25 08:14> VTE Risk Level:: Medical - moderate - high <Harris Jaramillo PA-C - Last Filed: 03/28/25 08:14> VTE Device Contraindication: Treatment Not Indicated <Harris Jaramillo PA-C - Last Filed: 03/28/25 08:14> VTE Drug Contraindication: N/A - Med Ordered <Harris Jaramillo PA-C - Last Filed: 03/28/25 08:14>
[2025-03-28 08:26] VITALS: BP 109/56; PULSE 79; RESP 15; TEMP 36.1; O2SAT 98
[2025-03-28] MEDS: Dextrose 5 % and 0.45 % NaCl 1,000 ML 100 ML IVCONT ×2 (08:57→15:35)
[2025-03-28] MEDS: 0.9 % Sodium Chloride Flush 3 ML SYRINGE IVFLUSH ×2 (08:58→19:41)
--- NOTE | 2025-03-28 09:56 | HO.WOUND ---
Wound Consult: Initial 79 yr old female admitted to [facility] [place] on 03/26/25 with proctitis, stool burden, now with liquid stools- See progress notes and H&P for detailed history. Wound consult placed for buttocks. Patient agreeable to assessment and photo documentation. Patient incontinent of loose/liquid stool at time of assessment, care provided. Coccyx/buttocks Etiology: MASD/IAD in the setting of fecal incontinence Wound Bed: intact moist pink and blanchable skin - bony prominent coccyx noted Drainage / Odor: none Katerin wound: ? No Induration, Fluctuance or Warmth noted Pain: none Goals of Treatment: ? offloading coccyx with turns and foam - moisture barrier to buttocks/perineum Recommendations: 1. Turn and Reposition every 2 hours and as needed for patient comfort. Use pillows or wedges to support off loading positions. 2. Off Load all bony prominences with use of pillows and heel boots if needed. Apply Preventative foams where needed. 3. Monitor for incontinence and moisture control, use barrier creams when needed for prevention and treatment. 4. Provide adequate and supplemental nutrition. 5. Order or Continue low air loss mattress. 6. When applicable maintain blood glucose levels per Providers order. Coccyx/buttock/perineum: Off Load Pressure with Q2 hr turns and use of pillows - Cleanse with PH balance spray or wipes, pat dry. ?Apply thin layer of Triad to buttocks and perineum, apply foam over coccyx/sacrum. change every other day and PRN. if changing foam greater than daily due to soiling, switch to triad only. Re-consult wound care Nurse for wound deterioration or wound changes.
--- NOTE | 2025-03-28 13:41 | P.PNGI_ITS ---
Subjective Subjective Date of Service: 03/28/25 Interval History: she is moving more stools feels less distended pain less no fevers Critical Care Time (minutes): 0 Physical Exam 2 Exam: Exam: EXAM: GENERAL: The patient is frail VITAL SIGNS:see workflow HEENT: Nonicteric sclerae, PERRLA, EOMI. Oropharynx clear. Moist mucous membranes. Conjunctivae appear well perfused. No thyroid mass. CHEST: Chest wall is nontender. HEART: Regular rate and rhythm without murmurs. LUNGS: Clear to auscultation bilaterally. ABDOMEN: Soft, positive bowel sounds, mildly tender--tympanic, no organomegaly.no flank tenderness SKIN: No rash, no excessive bruising, petechiae, or purpura. NEUROLOGIC: Cranial nerves II-XII intact without motor/sensory deficit. Psych: normal affect Vital Signs: Vital Signs: Last Vital Signs Temp 97.0 F 03/28/25 08:26 Pulse 79 03/28/25 08:26 Resp 15 03/28/25 08:26 BP 109/56 L 03/28/25 08:26 Pulse Ox 98 03/28/25 08:26 O2 Del Method Room Air 03/28/25 08:26 BMI result Body Mass Index 22.0 Objective Data Labs 03/27/25 03:57 03/27/25 03:57 Microbiology Microbiology Results: Microbiology 03/26/25 15:31 Blood - Venous Blood Culture - Preliminary No growth after 24 hours. 03/26/25 15:29 Blood - Venous Blood Culture - Preliminary No growth after 24 hours. Procedures Date of Service Date of Service: 03/28/25 Progress Note: A&P Assessment and plan (1) Abdominal pain, LLQ (left lower quadrant): Status: Acute Plan 1/ constipation from prior radiation therapy with abdominal pain, improving with laxative regimen PLAN: /1 cont with laxative regimen, can consider KUB to see remaining stool burden Time Spent With Patient Time: Total time managing care of this patient today ____ minutes. Quality Stroke Does the patient have a stroke diagnosis?: No VTE Prior VTE?: No VTE Risk Level:: Medical - moderate - high VTE Device Contraindication: Treatment Not Indicated VTE Drug Contraindication: N/A - Med Ordered
--- NOTE | 2025-03-28 14:09 | PC.NURSE ---
Family visiting,they would feel safer about discharge if patient was evaluated by physical therapy,Dr. Curiel notified
[2025-03-28 15:50] VITALS: BP 145/64; PULSE 93; RESP 16; TEMP 36.4; O2SAT 96
--- NOTE | 2025-03-28 16:22 | HO.PM.IMPN ---
Subjective Subjective Date of Service: 03/28/25 Interval History: seen and examined this morning follow up for abdominal pain on clear liquid diet; reporting some nausea this am Review of Systems Review of Systems: Yes all other systems are reviewed and are negative Constitutional Constitutional: Denies chills and Denies fever(s) Cardiovascular Cardiovascular: Denies chest pain, Denies palpitations and Denies dyspnea Respiratory Respiratory: Denies cough and Denies dyspnea Gastrointestinal Gastrointestinal: Reports abdominal pain and Reports nausea Endocrine Endocrine: Denies palpitations Physical Exam Vital Signs: Vital Signs: Last Vital Signs Temp 97.6 F 03/28/25 15:50 Pulse 93 03/28/25 15:50 Resp 16 03/28/25 15:50 BP 145/64 H 03/28/25 15:50 Pulse Ox 96 03/28/25 15:50 O2 Del Method Room Air 03/28/25 15:50 BMI result Body Mass Index 22.0 Const: Other: frail elderly female resting in bed General: alert and awake Nutritional Appearance: thin Orientation/consciousness: patient oriented x3 Resp: Effort & Inspection: normal respiratory effort, able to speak in complete sentences, no respiratory distress and no use of accessory muscles Cardio: Rate: regular rate GI: Other: some left side tenderness with deep palpation no guarding not rigid Inspection: No distended Palpation (GI): Soft to palpation Neuro: General: patient oriented x3, moves all extremities and CN's II-XI intact bilaterally Objective Data Active Medications Acetaminophen (Acetaminophen 325 Mg Tablet) 650 mg PO Q6H PRN PRN Reason: Pain, Mild 1-3,fever,headache Last Admin: 03/27/25 21:01 Dose: 650 mg Documented By: JM Apixaban (Apixaban 5 Mg Tablet) 5 mg PO BID [facility] Last Admin: 03/28/25 08:59 Dose: 5 mg Documented By: ELISABETH Calcium Carbonate (Calcium Carbonate 750 Mg Tab.Chew) 750 mg PO Q4H PRN PRN Reason: Heartburn Docusate Sodium (Docusate Sodium 100 Mg Capsule) 100 mg PO BID [facility] Last Admin: 03/28/25 08:59 Dose: Not Given Documented By: ELISABETH Non-Admin Reason: loose stools Hydromorphone HCl (Hydromorphone Hcl 1 Mg/Ml Syringe) 0.5 mg IVPUSH Q4H PRN; Protocol PRN Reason: Pain, Severe (Pain Scale 7-10) Last Admin: 03/28/25 09:22 Dose: 0.5 mg Documented By: ELISABETH Dextrose/Sodium Chloride (D51/2ns) 1,000 mls @ 100 mls/hr IVCONT .Q10H [facility] Last Admin: 03/28/25 15:35 Dose: 100 mls/hr Documented By: ELISABETH Piperacillin Sod/Tazobactam (Sod 3.375 gm/ Sodium Chloride) 50 mls @ 100 mls/hr IV Q6H [facility] Last Infusion: 03/28/25 14:14 Dose: Infused Documented By: ELISABETH Magnesium Hydroxide (Milk Of Magnesia 30 Ml Oral.Susp) 30 ml PO DAILY PRN PRN Reason: Constipation Melatonin (Melatonin 3 Mg Tablet) 6 mg PO BEDTIME PRN PRN Reason: Insomnia Last Admin: 03/27/25 21:01 Dose: 6 mg Documented By: JM Ondansetron HCl (Ondansetron Hcl 4 Mg/2 Ml Vial) 4 mg IVPUSH Q6H PRN PRN Reason: Nausea and Vomiting Polyethylene Glycol (Polyethylene Glycol 3350 17 Gm Powd.Pack) 17 gm PO DAILY PRN PRN Reason: Constipation Senna (Sennosides 8.6 Mg Tablet) 17.2 mg PO BEDTIME [facility] Last Admin: 03/27/25 21:10 Dose: Not Given Documented By: JM Non-Admin Reason: Pt having multiple loose stools Sodium Biphosphate/Sodium Phosphate (Sodium Phosphate,Moffat-Dibasic 133 Ml Enema) [address] ONCE PRN PRN Reason: Constipation Sodium Chloride (0.9 % Sodium Chloride Flush 3 Ml Syringe) 3 ml IVFLUSH QSHIFT [facility] Last Admin: 03/28/25 15:34 Dose: Not Given Documented By: ELISABETH Non-Admin Reason: IV Running Labs 03/27/25 03:57 03/27/25 03:57 Microbiology Microbiology Results: Microbiology 03/26/25 15:31 Blood Culture - Preliminary Blood - Venous No growth after 24 hours. 03/26/25 15:29 Blood Culture - Preliminary Blood - Venous No growth after 24 hours. Assessment and Plan (1) Abdominal pain: Status: Acute (2) Proctitis: Status: Acute Plan This is an 79 year old female with a history of AFib on eliquis, diverticulosis, Crohn's, anal cancer s/p radiation and chemo, hypothyroidism, COPD who presented to the hospital with worsening abdominal pain since August. Was noted to have abd pain, likely has proctocolitis (thickening in the wall of the sigmoid and rectum on imaging) Abdominal Pain seen by GI - pain due to Constipation, possibly with stercoral colitis and proctitis or residual effect of prior radiation with narrowing of sigmoid; continue bowel reg; continue flex sig if no improvement seen by general surgery - no plan for surgical intervention at this time now with some loose stool possible overflow - check repeat KUB in am to assess for remaining stool burden clear liquid diet, IV empiric zosyn blood cultures negative to date Adult failure to thrive Nutrition consult for unintentional weight loss history of Crohn's GI consult AFib continue diltiazem, flecainie continue Eliquis hypothyroidism continue levothyroxine gerd continue PPI HLD continue statin Code status changed to DNR DNI per patient's preference and molst DVT prophylaxis with the Eliquis Quality Stroke Does the patient have a stroke diagnosis?: No VTE Prior VTE?: No VTE Risk Level:: Medical - moderate - high VTE Device Contraindication: Treatment Not Indicated VTE Drug Contraindication: N/A - Med Ordered
[2025-03-28 20:00] VITALS: BP 132/62; PULSE 104; RESP 16; TEMP 36.2; O2SAT 97
[2025-03-28 23:35] VITALS: BP 141/68; PULSE 104; RESP 17; TEMP 36.1; O2SAT 98
[2025-03-29] VITALS (7 sets, daily range): BP systolic 129–147; BP diastolic 60–75; PULSE 84–98; RESP 15–20; TEMP 36.1–36.7; O2SAT 94–97
[2025-03-29] MEDS: Lactated Ringers 1,000 ML 80 ML IVCONT (00:51)
[2025-03-29 06:09] LABS: Anion Gap 16 (12-20); Blood Urea Nitrogen 24 mg/dL (9-16); Calcium 7.9 mg/dL (8.4-10.2); Carbon Dioxide 16 mmol/L (22-29); Chloride 102 mmol/L (96-108); Creatinine Clr Calc Pharmacy 39.8; Estimated Glomerular Filt Rate > 60; Potassium 4.7 mmol/L (3.3-5.1); Sodium 129 mmol/L (135-145)
[2025-03-29] MEDS: 0.9 % Sodium Chloride Flush 3 ML SYRINGE IVFLUSH ×2 (07:32→22:36)
[2025-03-29] MEDS: dilTIAZem HCL CD 240 MG CAP.ER.DEG PO (07:32)
--- NOTE | 2025-03-29 07:44 | P.PNGS_ITS ---
Subjective Subjective Date of Service: 03/29/25 <Harris Jaramillo PA-C - Last Filed: 03/29/25 08:01> 03/29/25 <Rene Ray MD - Last Filed: 03/29/25 08:45> Interval history: Now complaining of 9/10 lower left abdominal pain. Describes it as crampy in nature. Denies nausea. Passed a small bowel movement yesterday, liquid. did not take much of the CLD yesterday due to nausea, low appetite <Harris Jaramillo PA-C - Last Filed: 03/29/25 08:01> Physical Exam 2 Vital Signs: Vital Signs: Last Vital Signs Temp 97.2 F 03/29/25 07:34 Pulse 98 03/29/25 07:32 Resp 20 03/29/25 07:34 BP 146/66 H 03/29/25 07:32 Pulse Ox 97 03/29/25 07:34 O2 Del Method Room Air 03/29/25 07:34 BMI result Body Mass Index 22.0 <MADAN Anderson Last Filed: 03/29/25 08:01> Const: General: comfortable and no acute distress <Harris Jaramillo PA-C - Last Filed: 03/29/25 08:01> Orientation/consciousness: patient oriented x3 <MADAN Anderson Last Filed: 03/29/25 08:01> Resp: Effort & Inspection: normal respiratory effort and able to speak in complete sentences <MADAN Anderson Last Filed: 03/29/25 08:01> GI: Inspection: Yes distended <MADAN Anderson Last Filed: 03/29/25 08:01> Palpation (GI): Soft to palpation and Tenderness to palpation present (GI) (Throughout) <MADAN Anderson Last Filed: 03/29/25 08:01> Percussion: Yes tympanic to percussion <MADAN Anderson Last Filed: 03/29/25 08:01> Neuro: General: patient oriented x3 <MADAN Anderson Last Filed: 03/29/25 08:01> Objective Data Active Medications Acetaminophen (Acetaminophen 325 Mg Tablet) 650 mg PO Q6H PRN PRN Reason: Pain, Mild 1-3,fever,headache Last Admin: 03/27/25 21:01 Dose: 650 mg Documented By: JM Apixaban (Apixaban 5 Mg Tablet) 5 mg PO BID [facility] Last Admin: 03/29/25 07:32 Dose: 5 mg Documented By: ELISABETH Calcium Carbonate (Calcium Carbonate 750 Mg Tab.Chew) 750 mg PO Q4H PRN PRN Reason: Heartburn Diltiazem HCl (Diltiazem Hcl Cd 240 Mg Cap.Er.Deg) 240 mg PO DAILY [facility]; Protocol Last Admin: 03/29/25 07:32 Dose: 240 mg Documented By: ELISABETH Docusate Sodium (Docusate Sodium 100 Mg Capsule) 100 mg PO BID [facility] Last Admin: 03/29/25 07:32 Dose: 100 mg Documented By: ELISABETH Flecainide Acetate (Flecainide Acetate 50 Mg Tablet) 75 mg PO BID [facility] Last Admin: 03/29/25 07:36 Dose: 75 mg Documented By: ELISABETH Hydromorphone HCl (Hydromorphone Hcl 1 Mg/Ml Syringe) 0.5 mg IVPUSH Q4H PRN; Protocol PRN Reason: Pain, Severe (Pain Scale 7-10) Last Admin: 03/29/25 07:42 Dose: 0.5 mg Documented By: ELISABETH Piperacillin Sod/Tazobactam (Sod 3.375 gm/ Sodium Chloride) 50 mls @ 100 mls/hr IV Q6H [facility] Last Admin: 03/29/25 07:37 Dose: 100 mls/hr Documented By: ELISABETH Lactated Ringer's (Lr) 1,000 mls @ 80 mls/hr IVCONT .[id number] [facility] Last Infusion: 03/29/25 02:54 Dose: 80 mls/hr Documented By: JM Levothyroxine Sodium (Levothyroxine Sodium 75 Mcg Tablet) 75 mcg PO DAILY@0600 [facility] Last Admin: 03/29/25 05:22 Dose: 75 mcg Documented By: JM Magnesium Hydroxide (Milk Of Magnesia 30 Ml Oral.Susp) 30 ml PO DAILY PRN PRN Reason: Constipation Melatonin (Melatonin 3 Mg Tablet) 6 mg PO BEDTIME PRN PRN Reason: Insomnia Last Admin: 03/27/25 21:01 Dose: 6 mg Documented By: JM Polyethylene Glycol (Polyethylene Glycol 3350 17 Gm Powd.Pack) 17 gm PO DAILY PRN PRN Reason: Constipation Prochlorperazine Edisylate (Prochlorperazine Edisylate 10 Mg/2 Ml Vial) 5 mg IVPUSH Q6H PRN PRN Reason: Nausea and Vomiting Last Admin: 03/29/25 02:18 Dose: 5 mg Documented By: JM Senna (Sennosides 8.6 Mg Tablet) 17.2 mg PO BEDTIME [facility] Last Admin: 03/28/25 19:34 Dose: 17.2 mg Documented By: JM Sodium Biphosphate/Sodium Phosphate (Sodium Phosphate,[place]-Dibasic 133 Ml Enema) 133 ml [place] ONCE PRN PRN Reason: Constipation Sodium Chloride (0.9 % Sodium Chloride Flush 3 Ml Syringe) 3 ml IVFLUSH QSHIFT [facility] Last Admin: 03/29/25 07:32 Dose: 3 ml Documented By: ELISABETH <Harris Jaramillo PA-C - Last Filed: 03/29/25 08:01> Labs CBC & Chem 7: 03/27/25 03:57 03/29/25 05:41 <Harris Jaramillo PA-C - Last Filed: 03/29/25 08:01> Labs: Laboratory Results - last 24 hr 03/29/25 05:41 Anion Gap 16 Estim Creat Clear Calc 39.8 Estimated GFR > 60 Random Glucose 115 Calcium 7.9 L <Harris Jaramillo PA-C - Last Filed: 03/29/25 08:01> Microbiology Microbiology Results: Microbiology 03/26/25 15:31 Blood Culture - Preliminary Blood - Venous No growth after 48 hours. 03/26/25 15:29 Blood Culture - Preliminary Blood - Venous No growth after 48 hours. <Harris Jaramillo PA-C - Last Filed: 03/29/25 08:01> Procedures Date of Service Date of Service: 03/29/25 <Harris Jaramillo PA-C - Last Filed: 03/29/25 08:01> 03/29/25 <Rene Ray MD - Last Filed: 03/29/25 08:45> Progress Note: A&P Assessment and plan (1) Abdominal pain, LLQ (left lower quadrant): Status: Acute <Harris Jaramillo PA-C - Last Filed: 03/29/25 08:01> Assessment and Plan: continues to have lower abdominal pain passing liquid stools no blood in stools as per nurse abd tender rectal exam - redness in the perianal area; unable to visualize previous anal lesion ordered ffup CT dw patient and daughter Norma above they are both hesitant about any further surgical intervention in view of her overall health as per Norma , she has had declining health the past 2 months and has been mostly bedbound will revisit after CT scan pain mgt for now <Rene Ray MD - Last Filed: 03/29/25 08:45> Assessment and Plan: 79-year-old female admitted for proctocolitis, high stool burden. Again feeling some increased cramping abdominal pain today. Pain is 9/10. Denying nausea this morning. Passed small liquid bowel movement, unsure if this is escaping around the stool burden. Diet was also advanced to clear liquid diet but patient had low intake due to nausea, low appetite. On exam she is mildly distended, tender throughout the abdomen, most tender in the LLQ. Abdomen remains soft. Would recommend repeating imaging today. No plan for surgery currently. continue with bowel regimen for now. continue bowel regimen serial abdominal exams antiemetics as needed continue CLD, Nutrition consult pending <Harris Jaramillo PA-C - Last Filed: 03/29/25 08:01> Time Spent With Patient Time: Total time managing care of this patient today ____ minutes. <Harris Jaramillo PA-C - Last Filed: 03/29/25 08:01> Quality Stroke Does the patient have a stroke diagnosis?: No <Harris Jaramillo PA-C - Last Filed: 03/29/25 08:01> VTE Prior VTE?: No <Harris Jaramillo PA-C - Last Filed: 03/29/25 08:01> VTE Risk Level:: Medical - moderate - high <Harris Jaramillo PA-C - Last Filed: 03/29/25 08:01> VTE Device Contraindication: Treatment Not Indicated <Harris Jaramillo PA-C - Last Filed: 03/29/25 08:01> VTE Drug Contraindication: N/A - Med Ordered <Harris Jaramillo PA-C - Last Filed: 03/29/25 08:01>
--- NOTE | 2025-03-29 10:29 | P.PNIM_ITS ---
Subjective Subjective Date of Service: 03/29/25 Interval History: seen and examined this morning follow up for abdominal pain patient continues to have left side abdominal pain Review of Systems Review of Systems: Yes all other systems are reviewed and are negative and Other Constitutional Constitutional: Denies chills and Denies fever(s) Cardiovascular Cardiovascular: Denies chest pain, Denies palpitations and Denies dyspnea Respiratory Respiratory: Denies cough and Denies dyspnea Gastrointestinal Gastrointestinal: Reports abdominal pain, Reports nausea and Denies vomiting Endocrine Endocrine: Denies palpitations Physical Exam 2 Vital Signs: Vital Signs: Last Vital Signs Temp 97.2 F 03/29/25 07:34 Pulse 98 03/29/25 07:32 Resp 20 03/29/25 07:34 BP 146/66 H 03/29/25 07:32 Pulse Ox 97 03/29/25 07:34 O2 Del Method Room Air 03/29/25 07:34 BMI result Body Mass Index 22.0 Const: Other: frail elderly female resting in bed General: alert and awake Nutritional Appearance: thin O rientation/consciousness: patient oriented x3 Resp: Effort & Inspection: normal respiratory effort, able to speak in complete sentences, no respiratory distress and no use of accessory muscles Cardio: Rate: regular rate GI: Other: some left side tenderness with deep palpation no guarding not rigid Inspection: No distended Palpation (GI): Soft to palpation Neuro: General: patient oriented x3, moves all extremities and CN's II-XI intact bilaterally Objective Data Active Medications Acetaminophen (Acetaminophen 325 Mg Tablet) 650 mg PO Q6H PRN PRN Reason: Pain, Mild 1-3,fever,headache Last Admin: 03/27/25 21:01 Dose: 650 mg Documented By: JM Apixaban (Apixaban 5 Mg Tablet) 5 mg PO BID [facility] Last Admin: 03/29/25 07:32 Dose: 5 mg Documented By: ELISABETH Calcium Carbonate (Calcium Carbonate 750 Mg Tab.Chew) 750 mg PO Q4H PRN PRN Reason: Heartburn Diltiazem HCl (Diltiazem Hcl Cd 240 Mg Cap.Er.Deg) 240 mg PO DAILY [facility]; Protocol Last Admin: 03/29/25 07:32 Dose: 240 mg Documented By: ELISABETH Docusate Sodium (Docusate Sodium 100 Mg Capsule) 100 mg PO BID [facility] Last Admin: 03/29/25 07:32 Dose: 100 mg Documented By: ELISABETH Flecainide Acetate (Flecainide Acetate 50 Mg Tablet) 75 mg PO BID [facility] Last Admin: 03/29/25 07:36 Dose: 75 mg Documented By: ELISABETH Hydromorphone HCl (Hydromorphone Hcl 1 Mg/Ml Syringe) 0.5 mg IVPUSH Q4H PRN; Protocol PRN Reason: Pain, Severe (Pain Scale 7-10) Last Admin: 03/29/25 07:42 Dose: 0.5 mg Documented By: ELISABETH Piperacillin Sod/Tazobactam (Sod 3.375 gm/ Sodium Chloride) 50 mls @ 100 mls/hr IV Q6H [facility] Last Infusion: 03/29/25 08:07 Dose: Infused Documented By: ELISABETH Lactated Ringer's (Lr) 1,000 mls @ 100 mls/hr IVCONT .Q10H [facility] Last Infusion: 03/29/25 10:20 Dose: 100 mls/hr Documented By: ELISABETH Levothyroxine Sodium (Levothyroxine Sodium 75 Mcg Tablet) 75 mcg PO DAILY@0600 [facility] Last Admin: 03/29/25 05:22 Dose: 75 mcg Documented By: JM Magnesium Hydroxide (Milk Of Magnesia 30 Ml Oral.Susp) 30 ml PO DAILY PRN PRN Reason: Constipation Melatonin (Melatonin 3 Mg Tablet) 6 mg PO BEDTIME PRN PRN Reason: Insomnia Last Admin: 03/27/25 21:01 Dose: 6 mg Documented By: JM Polyethylene Glycol (Polyethylene Glycol 3350 17 Gm Powd.Pack) 17 gm PO DAILY PRN PRN Reason: Constipation Prochlorperazine Edisylate (Prochlorperazine Edisylate 10 Mg/2 Ml Vial) 5 mg IVPUSH Q6H PRN PRN Reason: Nausea and Vomiting Last Admin: 03/29/25 02:18 Dose: 5 mg Documented By: JM Senna (Sennosides 8.6 Mg Tablet) 17.2 mg PO BEDTIME [facility] Last Admin: 03/28/25 19:34 Dose: 17.2 mg Documented By: JM Sodium Biphosphate/Sodium Phosphate (Sodium Phosphate,[place]-Dibasic 133 Ml Enema) 133 ml [place] ONCE PRN PRN Reason: Constipation Sodium Chloride (0.9 % Sodium Chloride Flush 3 Ml Syringe) 3 ml IVFLUSH QSHIFT [facility] Last Admin: 03/29/25 07:32 Dose: 3 ml Documented By: ELISABETH Labs 03/27/25 03:57 03/29/25 05:41 Labs: Laboratory Results - last 24 hr 03/29/25 05:41 Anion Gap 16 Estim Creat Clear Calc 39.8 Estimated GFR > 60 Random Glucose 115 Calcium 7.9 L Microbiology Microbiology Results: Microbiology 03/26/25 15:31 Blood Culture - Preliminary Blood - Venous No growth after 48 hours. 03/26/25 15:29 Blood Culture - Preliminary Blood - Venous No growth after 48 hours. Assessment and Plan (1) Abdominal pain, LLQ (left lower quadrant): Status: Acute Plan This is an 79 year old female with a history of AFib on eliquis, diverticulosis, Crohn's, anal cancer s/p radiation and chemo, hypothyroidism, COPD who presented to the hospital with worsening abdominal pain since August. Was noted to have abd pain, likely has proctocolitis (thickening in the wall of the sigmoid and rectum on imaging) Abdominal Pain seen by GI - pain due to Constipation, possibly with stercoral colitis and proctitis or residual effect of prior radiation with narrowing of sigmoid; continue bowel reg; continue flex sig if no improvement seen by general surgery - no plan for surgical intervention at this time had some loose stool 03/28, possible overflow - no further diarrhea repeat CT planned for today due to ongoing pain clear liquid diet, increase rate of IVF empiric zosyn blood cultures negative to date plan to repeat ct abdomen Hyponatremia likely due to volume depletion increase rate of IVF Adult failure to thrive Nutrition consult for unintentional weight loss history of Crohn's less likely acute flare seen by GI, no steroids indicated AFib continue diltiazem, flecainie continue Eliquis hypothyroidism continue levothyroxine gerd continue PPI HLD continue statin Code status changed to DNR DNI per patient's preference and molst DVT prophylaxis with the [employer] Quality Stroke Does the patient have a stroke diagnosis?: No VTE Prior VTE?: No VTE Risk Level:: Medical - moderate - high VTE Device Contraindication: Treatment Not Indicated VTE Drug Contraindication: N/A - Med Ordered
[2025-03-29] MEDS: iohexoL 350 MG/ML 100 ML INFUS..BTL 85 ML IV (10:44)
--- NOTE | 2025-03-29 12:08 | P.EN_ITS ---
Event Note Date of Service: 04/01/25 Event Note: I have reviewed her CAT scan images Her colon is still distended proximally all the way to the distal sigmoid and rectum which appears to be swollen/edematous There is note of good amounts of gas in large stool particles The gallbladder was distended but thin walled She is not tender in the right upper quadrant She is tender on the lower abdomen and she remains distended because of stool and gas in the colon I had a long discussion with her and her daughter Maricel at bedside I explained the option of doing a diverting stoma to decompress her Although this may elevate her distention and discomfort, it comes with the risks of anesthesia Other perioperative risks include VT, strokes, pneumonia She scores poorly on the frailty index so I explained to them that she may not do well postoperatively either The patient says that she does not want any surgical intervention She says that she had thought about this already in the past She just wants good pain control at this time The family wanted to talk to with the case management manager about alternate levels of c are The patient says she is very comfortable with the decision discussed the above with the case management manager and with the hospitalist service Time Spent With Patient Time: Total time managing care of this patient today ____ minutes.
--- NOTE | 2025-03-29 12:14 | MHC.CM.PN ---
Addendum entered by Apolonia Pinon RN 03/29/25 14:09: Hospice informational complete. Patient/family would like to trial PPN prior to making a decision. PA aware. Original Note: Per surgeon, patient does not wish to move forward w/ surgery and is requesting hospice informational. CM met with patient and son at bedside, who report they are not decided on hospice but would like an informational to explore the option. Currently active w/ [facility] for SN/PT, and patient confirms [facility] would be first choice for palliative or hospice services. Request for informational sent via [employer].
[2025-03-29 12:49] LABS: Alanine Aminotransferase < 6 U/L (0-31); Albumin Level 1.8 g/dL (3.5-5.0); Alkaline Phosphatase 115 U/L (39-117); Aspartate Amino Transferase 9 U/L (5-31); Total Protein 4.9 g/dL (6.5-8.0)
[2025-03-29] MEDS: Lactated Ringers 1,000 ML 100 ML IVCONT ×2 (13:29→22:36)
--- NOTE | 2025-03-29 13:35 | PM.EVENT ---
Event Note Date of Service: 03/29/25 Event Note: repeat CT scan with worsening inflammation, increasing fluid, distended gallbladder; ongoing constipation d/w GI and surgery surgery offered colectomy, pt has declined will continue bowel regimen, empiric antibiotics; any liquid stool is likely overflow and bowel meds should not be held check gi panel and cdif check LFTs and RUQ US if no improvement tomorrow would consider PPN discussed goals of care with pt and son and daughter (HCP) at the bedside. full update given current clinical condition overall given pt age, frailty and poor nutritional status, prognosis poor Hospice nurse present as well for hospice informational. for now family would like to continue current management Time Spent With Patient Time: Total time managing care of this patient today ____ minutes.
[2025-03-29 16:37] LABS: Sodium 129 mmol/L (135-145)
[2025-03-30 03:45] VITALS: BP 136/60; PULSE 86; RESP 16; TEMP 36.3; O2SAT 93
--- NOTE | 2025-03-30 03:57 | PC.NURSE ---
Care assumed at 1900. Patient reports she is very tired tonight and ready to sleep. Oriented x 4 very pleasant. Pt able to assist with turns in bed and able to take small pills whole with sips of water. Pt declined Mesalamine tonight secondary to pill size and pt reporting fear too big and would choke on them . Medication unable to be crushed or chewed so medication held. Pt incontinent of small amounts of liquid gel like brownish smears of bowel movement with urine x3 overnight. Frequent skin care provided and repositioning to minimize discomfort of MASD of buttocks, Triad cream applied. IV Tylenol provided for c/o abdominal cramping and per patient request, refer to pain and administration documentation. Providing patient warm blankets overnight, and offering reassurance as patient coping with medical issues.
[2025-03-30 07:47] VITALS: BP 148/70; PULSE 95; RESP 18; TEMP 36.3; O2SAT 96
[2025-03-30] MEDS: 0.9 % Sodium Chloride Flush 3 ML SYRINGE IVFLUSH ×2 (07:52→20:38)
[2025-03-30] MEDS: dilTIAZem HCL CD 240 MG CAP.ER.DEG PO (08:39)
[2025-03-30] MEDS: Lactated Ringers 1,000 ML 100 ML IVCONT ×2 (09:18→21:05)
[2025-03-30] MEDS: oxyCODONE HCl Immed Release 5 MG TABLET PO (09:23)
[2025-03-30 09:37] LABS: Hematocrit 36.5 % (37.0-47.0); Hemoglobin 12.2 g/dl (12.0-16.0); Mean Corpuscular HGB Conc 33.4 g/dl (31.0-35.0); Mean Corpuscular Hemoglobin 29.0 pg (27.0-33.0); Mean Corpuscular Volume 86.9 fL (80.0-98.0); NRBC Abs Auto 0.000 X10*3/uL (0.0-0.012); NRBC Pct Auto 0.0 /100WBC (0.0-0.2); Platelet Count 243 X10*3/uL (160-400); Red Blood Count 4.20 X10*6/uL (4.20-5.50); White Blood Count 9.7 X10*3/uL (4.8-10.8)
[2025-03-30 09:53] LABS: Blood Urea Nitrogen 26 mg/dL (9-16); Calcium 7.9 mg/dL (8.4-10.2); Creatinine Clr Calc Pharmacy 47.7; Estimated Glomerular Filt Rate > 60
[2025-03-30 10:05] LABS: Anion Gap 12 (12-20); Carbon Dioxide 21 mmol/L (22-29); Chloride 101 mmol/L (96-108); Potassium 4.2 mmol/L (3.3-5.1); Sodium 130 mmol/L (135-145)
[2025-03-30 11:45] LABS: CDiff Gene PCR NEGATIVE (Negative)
[2025-03-30 11:51] VITALS: BP 117/62; PULSE 96; RESP 18; TEMP 36.2; O2SAT 97
[2025-03-30 15:34] VITALS: BP 135/60; PULSE 94; RESP 18; TEMP 36.6; O2SAT 95
--- NOTE | 2025-03-30 15:34 | HO.PM.IMPN ---
Subjective Subjective Date of Service: 03/30/25 Interval History: Pt tired, still experiencing diffuse abd pain No N/V Able to eat a little broth No significant bowel movement Review of Systems Review of Systems: Yes all other systems are reviewed and are negative Physical Exam Exam: Exam: General: AOx3, no acute distress. Frail and weak appearing Resp: CTA bilaterally CVS: S1, S2, RRR GI: Diffuse lower abd tenderness Skin: Warm, dry Neuro: Cranial nerves II-XII grossly intact bilaterally. Motor grossly intact bilaterally Extremities: No edema Psych: Appropriate affect Vital Signs: Vital Signs: Last Vital Signs Temp 97.2 F 03/30/25 11:51 Pulse 96 03/30/25 11:51 Resp 18 03/30/25 11:51 BP 117/62 03/30/25 11:51 Pulse Ox 97 03/30/25 11:51 O2 Del Method Room Air 03/30/25 11:51 BMI result Body Mass Index 22.0 Objective Data Active Medications Acetaminophen (Acetaminophen 325 Mg Tablet) 650 mg PO Q6H PRN PRN Reason: Pain, Mild 1-3,fever,headache Apixaban (Apixaban 5 Mg Tablet) 5 mg PO BID [facility] Last Admin: 03/30/25 08:40 Dose: 5 mg Documented By: ALF Calcium Carbonate (Calcium Carbonate 750 Mg Tab.Chew) 750 mg PO Q4H PRN PRN Reason: Heartburn Diltiazem HCl (Diltiazem Hcl Cd 240 Mg Cap.Er.Deg) 240 mg PO DAILY [facility]; Protocol Last Admin: 03/30/25 08:39 Dose: 240 mg Documented By: ALF Docusate Sodium (Docusate Sodium 100 Mg Capsule) 100 mg PO BID [facility] Last Admin: 03/30/25 08:40 Dose: 100 mg Documented By: ALF Flecainide Acetate (Flecainide Acetate 50 Mg Tablet) 75 mg PO BID [facility] Last Admin: 03/30/25 08:40 Dose: 75 mg Documented By: ALF Hydromorphone HCl (Hydromorphone Hcl 1 Mg/Ml Syringe) 0.5 mg IVPUSH Q4H PRN; Protocol PRN Reason: Pain, Severe (Pain Scale 7-10) Last Admin: 03/29/25 07:42 Dose: 0.5 mg Documented By: ELISABETH Piperacillin Sod/Tazobactam (Sod 3.375 gm/ Sodium Chloride) 50 mls @ 100 mls/hr IV Q6H [facility] Last Infusion: 03/30/25 15:05 Dose: Infused Documented By: AFL Lactated Ringer's (Lr) 1,000 mls @ 100 mls/hr IVCONT .Q10H [facility] Last Infusion: 03/30/25 15:04 Dose: 100 mls/hr Documented By: ALF Levothyroxine Sodium (Levothyroxine Sodium 75 Mcg Tablet) 75 mcg PO DAILY@0600 [facility] Last Admin: 03/30/25 04:55 Dose: 75 mcg Documented By: FLOYD Magnesium Hydroxide (Milk Of Magnesia 30 Ml Oral.Susp) 30 ml PO DAILY PRN PRN Reason: Constipation Melatonin (Melatonin 3 Mg Tablet) 6 mg PO BEDTIME PRN PRN Reason: Insomnia Last Admin: 03/27/25 21:01 Dose: 6 mg Documented By: JM Mesalamine (Mesalamine 250 Mg Capsule.Er) 1,000 mg PO TID [facility] Last Admin: 03/30/25 09:34 Dose: Not Given Documented By: ALF Non-Admin Reason: Patient Refused Comments: Patient reports difficulty swallowing this medication. Provider Petey Bowman aware. Oxycodone HCl (Oxycodone Hcl Immed Release 5 Mg Tablet) 5 mg PO Q4H PRN PRN Reason: Pain, Moderate(Pain Scale 4-6) Last Admin: 03/30/25 09:23 Dose: 5 mg Documented By: ALF Polyethylene Glycol (Polyethylene Glycol 3350 17 Gm Powd.Pack) 17 gm PO DAILY [facility] Last Admin: 03/30/25 08:40 Dose: 17 gm Documented By: ALF Prochlorperazine Edisylate (Prochlorperazine Edisylate 10 Mg/2 Ml Vial) 5 mg IVPUSH Q6H PRN PRN Reason: Nausea and Vomiting Last Admin: 03/29/25 02:18 Dose: 5 mg Documented By: JM Senna (Sennosides 8.6 Mg Tablet) 17.2 mg PO BEDTIME [facility] Last Admin: 03/29/25 20:19 Dose: 17.2 mg Documented By: FLOYD Sodium Biphosphate/Sodium Phosphate (Sodium Phosphate,[place]-Dibasic 133 Ml Enema) 133 ml [place] ONCE PRN PRN Reason: Constipation Sodium Chloride (0.9 % Sodium Chloride Flush 3 Ml Syringe) 3 ml IVFLUSH QSHIFT [facility] Last Admin: 03/30/25 07:52 Dose: 3 ml Documented By: ALF Labs 03/30/25 09:23 03/30/25 09:23 Labs: Laboratory Results - last 24 hr 03/30/25 03/30/25 09:23 10:20 MCV 86.9 MCH 29.0 MCHC 33.4 RDW 14.9 Plt Count 243 MPV 8.6 L Absolute Nucleated RBC 0.000 Nucleated RBC % (auto) 0.0 Anion Gap 12 Estim Creat Clear Calc 47.7 Estimated GFR > 60 Random Glucose 95 Calcium 7.9 L Stl C. cayetanensis PCR Cancelled Stool Rotavirus A PCR Cancelled Stl Adenov F 40/41 PCR Cancelled Stool Astrovirus (PCR) Cancelled Stool Campylobacter PCR Cancelled Stool Cryptosporidium PCR Cancelled Stl Sh Tox Pr E STEC PCR Cancelled Stool E coli O157 PCR Cancelled Stl Enterotoxigenic E PCR Cancelled Stool EPEC (PCR) Cancelled Stool EAEC (PCR) Cancelled Stl E. histolytica PCR Cancelled Stool Giardia Lamblia PCR Cancelled Stl P. shigelloides PCR Cancelled Stool Salmonella PCR Cancelled Stool Sapovirus (PCR) Cancelled Stl Shigella/EIEC PCR Cancelled St Y.enterocolitica PCR Cancelled Stool Vibrio (PCR) Cancelled Stl Vibrio cholerae PCR Cancelled Stl Norovirus GI/GII PCR Cancelled C. difficile Tox B Gene NEGATIVE Assessment and Plan (1) Abdominal pain, LLQ (left lower quadrant): Status: Acute (2) Lower abdominal pain: Status: Acute Plan This is an 79 year old female with a history of AFib on eliquis, diverticulosis, Crohn's, anal cancer s/p radiation and chemo, hypothyroidism, COPD who presented to the hospital with worsening abdominal pain since August. Was noted to have abd pain, likely has proctocolitis (thickening in the wall of the sigmoid and rectum on imaging) Abdominal Pain Repeat CT on 03/29 showed worsening inflammation, increasing fluid, distended gallbladder, and ongoing constipation RUQ U/S with mild gallbladder distention without evidence of cholecystitis or Becekr's sign. no CBD dilation seen by GI - pain due to Constipation, possibly with stercoral colitis and proctitis or residual effect of prior radiation with narrowing of sigmoid; continue bowel reg; continue flex sig if no improvement seen by general surgery - who offered colectomy with diverting stoma, but pt declined had some loose stool 03/28-03/30, possible overflow - but no further diarrhea clear liquid diet, IVF, Ensure supplementation nutrition consult for PPN if pt's condition does not improve; PPN could start as early as Tuesday empiric zosyn blood cultures negative to date Goals of care pt and family considering Hospice, but would like to pursue PPN first pt does not want surgical intervention Hyponatremia likely due to volume depletion increase rate of IVF Continue to monitor Adult failure to thrive Nutrition consult for unintentional weight loss history of Crohn's less likely acute flare seen by GI, no steroids indicated AFib continue diltiazem, flecainie continue Eliquis hypothyroidism continue levothyroxine gerd continue PPI HLD continue statin Code status changed to DNR DNI per patient's preference and molst DVT prophylaxis with the Eliquis Pt requires continued hospitalization she unable to tolerate sufficient p.o. intake, and will likely need PPN tomorrow. Should also needs monitoring for worsening abdominal distention and possible consultation with hospice. Quality Stroke Does the patient have a stroke diagnosis?: No VTE Prior VTE?: No VTE Risk Level:: Medical - moderate - high VTE Device Contraindication: Treatment Not Indicated VTE Drug Contraindication: N/A - Med Ordered
[2025-03-30 16:17] LABS: Appearance Urine Clear; Glucose Urine UA Negative (Negative); PH 5.5 (5.0-9.0); Specific Gravity - Urine >= 1.030 (1.005-1.025); UMIC TRIGGER UACC YES
[2025-03-30 20:00] VITALS: BP 125/58; PULSE 93; RESP 16; TEMP 36.2; O2SAT 94
[2025-03-30 23:50] VITALS: BP 123/59; PULSE 97; RESP 16; TEMP 36.4; O2SAT 94
[2025-03-31 03:52] VITALS: BP 140/63; PULSE 50; RESP 16; TEMP 36.5; O2SAT 94
[2025-03-31 06:41] LABS: Anion Gap 13 (12-20); Blood Urea Nitrogen 24 mg/dL (9-16); Calcium 7.7 mg/dL (8.4-10.2); Carbon Dioxide 20 mmol/L (22-29); Chloride 102 mmol/L (96-108); Creatinine Clr Calc Pharmacy 56.4; Estimated Glomerular Filt Rate > 60; Potassium 3.5 mmol/L (3.3-5.1); Sodium 131 mmol/L (135-145)
[2025-03-31 07:44] VITALS: BP 115/55; PULSE 97; RESP 18; TEMP 36.2; O2SAT 96
[2025-03-31] MEDS: 0.9 % Sodium Chloride Flush 3 ML SYRINGE IVFLUSH ×2 (07:58→21:43)
[2025-03-31] MEDS: dilTIAZem HCL CD 240 MG CAP.ER.DEG PO (08:41)
[2025-03-31 08:44] VITALS: BMI 22.0
--- NOTE | 2025-03-31 08:56 | P.PNIM_ITS ---
Subjective Subjective Date of Service: 03/31/25 Interval History: Still with LLQ pain No significant N/V Has not been able to eat much Pt would like to try some ice cream; will advance to Full Liquid Diet Plan to start PPN this afternoon Did have a large BM yesterday Review of Systems Review of Systems: Yes all other systems are reviewed and are negative Physical Exam 2 Exam: Exam: General: AOx3, no acute distress. Frail and weak appearing Resp: CTA bilaterally CVS: S1, S2, RRR GI: +BS, soft, mild distension, LLQ tenderness Skin: Warm, dry Neuro: Cranial nerves II-XII grossly intact bilaterally. Motor grossly intact bilaterally. Musculoskeletal: Generalized weakness noted Extremities: No edema Psych: Appropriate affect Vital Signs: Vital Signs: Last Vital Signs Temp 97.1 F 03/31/25 07:44 Pulse 97 03/31/25 07:44 Resp 18 03/31/25 07:44 BP 115/55 L 03/31/25 07:44 Pulse Ox 96 03/31/25 07:44 O2 Del Method Room Air 03/31/25 07:44 BMI result Body Mass Index 22.0 Objective Data Active Medications Acetaminophen (Acetaminophen 325 Mg Tablet) 650 mg PO Q6H PRN PRN Reason: Pain, Mild 1-3,fever,headache Apixaban (Apixaban 5 Mg Tablet) 5 mg PO BID [facility] Last Admin: 03/31/25 08:41 Dose: 5 mg Documented By: ALF Calcium Carbonate (Calcium Carbonate 750 Mg Tab.Chew) 750 mg PO Q4H PRN PRN Reason: Heartburn Diltiazem HCl (Diltiazem Hcl Cd 240 Mg Cap.Er.Deg) 240 mg PO DAILY [facility]; Protocol Last Admin: 03/31/25 08:41 Dose: 240 mg Documented By: ALF Docusate Sodium (Docusate Sodium 100 Mg Capsule) 100 mg PO BID [facility] Last Admin: 03/31/25 08:41 Dose: 100 mg Documented By: ALF Flecainide Acetate (Flecainide Acetate 50 Mg Tablet) 75 mg PO BID [facility] Last Admin: 03/31/25 08:41 Dose: 75 mg Documented By: ALF Hydromorphone HCl (Hydromorphone Hcl 1 Mg/Ml Syringe) 0.5 mg IVPUSH Q4H PRN; Protocol PRN Reason: Pain, Severe (Pain Scale 7-10) Last Admin: 03/29/25 07:42 Dose: 0.5 mg Documented By: ELISABETH Piperacillin Sod/Tazobactam (Sod 3.375 gm/ Sodium Chloride) 50 mls @ 100 mls/hr IV Q6H [facility] Last Infusion: 03/31/25 08:38 Dose: Infused Documented By: ALF Lactated Ringer's (Lr) 1,000 mls @ 100 mls/hr IVCONT .Q10H [facility] Stop: 03/31/25 18:59 Levothyroxine Sodium (Levothyroxine Sodium 75 Mcg Tablet) 75 mcg PO DAILY@0600 [facility] Last Admin: 03/31/25 05:58 Dose: 75 mcg Documented By: JOHN Magnesium Hydroxide (Milk Of Magnesia 30 Ml Oral.Susp) 30 ml PO DAILY PRN PRN Reason: Constipation Melatonin (Melatonin 3 Mg Tablet) 6 mg PO BEDTIME PRN PRN Reason: Insomnia Last Admin: 03/27/25 21:01 Dose: 6 mg Documented By: JM Mesalamine (Mesalamine 250 Mg Capsule.Er) 1,000 mg PO TID [facility] Last Admin: 03/31/25 08:41 Dose: 1,000 mg Documented By: ALF Oxycodone HCl (Oxycodone Hcl Immed Release 5 Mg Tablet) 5 mg PO Q4H PRN PRN Reason: Pain, Moderate(Pain Scale 4-6) Last Admin: 03/30/25 09:23 Dose: 5 mg Documented By: ALF Polyethylene Glycol (Polyethylene Glycol 3350 17 Gm Powd.Pack) 17 gm PO DAILY [facility] Last Admin: 03/31/25 08:42 Dose: 17 gm Documented By: ALF Prochlorperazine Edisylate (Prochlorperazine Edisylate 10 Mg/2 Ml Vial) 5 mg IVPUSH Q6H PRN PRN Reason: Nausea and Vomiting Last Admin: 03/29/25 02:18 Dose: 5 mg Documented By: JM Senna (Sennosides 8.6 Mg Tablet) 17.2 mg PO BEDTIME [facility] Last Admin: 03/30/25 20:40 Dose: 17.2 mg Documented By: JOHN Sodium Biphosphate/Sodium Phosphate (Sodium Phosphate,[place]-Dibasic 133 Ml Enema) 133 ml [place] ONCE PRN PRN Reason: Constipation Sodium Chloride (0.9 % Sodium Chloride Flush 3 Ml Syringe) 3 ml IVFLUSH QSHIFT [facility] Last Admin: 03/31/25 07:58 Dose: 3 ml Documented By: ALF Labs 03/30/25 09:23 03/31/25 05:59 Labs: Laboratory Results - last 24 hr 03/30/25 03/30/25 03/30/25 09:23 10:20 16:00 MCV 86.9 MCH 29.0 MCHC 33.4 RDW 14.9 Plt Count 243 MPV 8.6 L Absolute Nucleated RBC 0.000 Nucleated RBC % (auto) 0.0 Anion Gap 12 Estim Creat Clear Calc 47.7 Estimated GFR > 60 Random Glucose 95 Calcium 7.9 L Urine Color Dark Yellow Urine Appearance Clear Urine pH 5.5 Ur Specific [place] >= 1.030 H Urine Protein 30 (1+) H Urine Glucose (UA) Negative Urine Ketones Negative Urine Blood Large (3+) H Urine Nitrite Negative Ur Leukocyte Esterase Trace H Urine RBC >20 H Urine WBC 0-5 Ur Squamous Epith Cells 0-2 Urine Bacteria None Seen Hyaline Casts 3-5 Urine Osmolality 635 Ur Random Sodium 21.0 Stl C. cayetanensis PCR Cancelled Stool Rotavirus A PCR Cancelled Stl Adenov F 40/41 PCR Cancelled Stool Astrovirus (PCR) Cancelled Stool Campylobacter PCR Cancelled Stool Cryptosporidium PCR Cancelled Stl Sh Tox Pr E STEC PCR Cancelled Stool E coli O157 PCR Cancelled Stl Enterotoxigenic E PCR Cancelled Stool EPEC (PCR) Cancelled Stool EAEC (PCR) Cancelled Stl E. histolytica PCR Cancelled Stool Giardia Lamblia PCR Cancelled Stl P. shigelloides PCR Cancelled Stool Salmonella PCR Cancelled Stool Sapovirus (PCR) Cancelled Stl Shigella/EIEC PCR Cancelled St Y.enterocolitica PCR Cancelled Stool Vibrio (PCR) Cancelled Stl Vibrio cholerae PCR Cancelled Stl Norovirus GI/GII PCR Cancelled C. difficile Tox B Gene NEGATIVE 03/31/25 05:59 MCV MCH MCHC RDW Plt Count MPV Absolute Nucleated RBC Nucleated RBC % (auto) Anion Gap 13 Estim Creat Clear Calc 56.4 Estimated GFR > 60 Random Glucose 62 Calcium 7.7 L Urine Color Urine Appearance Urine pH Ur Specific [place] Urine Protein Urine Glucose (UA) Urine Ketones Urine Blood Urine Nitrite Ur Leukocyte Esterase Urine RBC Urine WBC Ur Squamous Epith Cells Urine Bacteria Hyaline Casts Urine Osmolality Ur Random Sodium Stl C. cayetanensis PCR Stool Rotavirus A PCR Stl Adenov F 40/41 PCR Stool Astrovirus (PCR) Stool Campylobacter PCR Stool Cryptosporidium PCR Stl Sh Tox Pr E STEC PCR Stool E coli O157 PCR Stl Enterotoxigenic E PCR Stool EPEC (PCR) Stool EAEC (PCR) Stl E. histolytica PCR Stool Giardia Lamblia PCR Stl P. shigelloides PCR Stool Salmonella PCR Stool Sapovirus (PCR) Stl Shigella/EIEC PCR St Y.enterocolitica PCR Stool Vibrio (PCR) Stl Vibrio cholerae PCR Stl Norovirus GI/GII PCR C. difficile Tox B Gene Assessment and Plan (1) Abdominal pain, LLQ (left lower quadrant): Status: Acute (2) Lower abdominal pain: Status: Acute Plan This is an 79 year old female with a history of AFib on eliquis, diverticulosis, Crohn's, anal cancer s/p radiation and chemo, hypothyroidism, COPD who presented to the hospital with worsening abdominal pain since August. Was noted to have abd pain, likely has proctocolitis (thickening in the wall of the sigmoid and rectum on imaging) Abdominal Pain Repeat CT on 03/29 showed worsening inflammation, increasing fluid, distended gallbladder, and ongoing constipation RUQ U/S with mild gallbladder distention without evidence of cholecystitis or Becker's sign. no CBD dilation seen by GI - pain due to Constipation, possibly with stercoral colitis and proctitis or residual effect of prior radiation with narrowing of sigmoid; continue bowel reg; continue flex sig if no improvement seen by general surgery - who offered colectomy with diverting stoma, but pt declined had some loose stool 03/28-03/30, possible overflow - but no further diarrhea Full liquid diet, Ensure supplementation PPN started 03/31 Empiric zosyn, started 03/27 blood cultures negative to date Goals of care pt and family considering Hospice, but would like to pursue PPN first pt does not want surgical intervention Hyponatremia likely due to volume depletion increase rate of IVF Continue to monitor Adult failure to thrive Nutrition consult for unintentional weight loss history of Crohn's less likely acute flare seen by GI, no steroids indicated AFib continue diltiazem, flecainie continue Eliquis hypothyroidism continue levothyroxine gerd continue PPI HLD continue statin Code status changed to DNR DNI per patient's preference and molst DVT prophylaxis with the Eliquis Pt requires continued hospitalization she unable to tolerate sufficient p.o. intake, and now on PPN. Should also needs monitoring for worsening abdominal distention and adult failure to thrive, and possible consultation with hospice. Quality Stroke Does the patient have a stroke diagnosis?: No VTE Prior VTE?: No VTE Risk Level:: Medical - moderate - high VTE Device Contraindication: Treatment Not Indicated VTE Drug Contraindication: N/A - Med Ordered
[2025-03-31 09:01] LABS: Albumin Level 2.0 g/dL (3.5-5.0); Magnesium 2.1 mg/dL (1.6-2.6)
--- NOTE | 2025-03-31 09:02 | MHC.CLN ---
CONSULT DIET RX: CLEAR LIQUIDS WITH ENSURE CLEAR TID. VERY POOR PO INTAKE. UNABLE TO TOLERATE ADEQUATE PO INTAKE DUE TO ANAL CANCER AND ABDOMINAL PAIN. SHOWS SIGNIFICANT WEIGHT LOSS X 11 MONTHS -30%. WEIGHT LOSS X 3 MONTHS -7%. STARTING PPN TODAY. COMMUNICATED WITH PHARMACY AND PROVIDER. RECOMMEND PPN AT 45 ML PER HOUR TO PROVIDE 46 G PROTEIN, 108 G DEXTROSE, 551 KCALS. REPLETE LYTES NEEDED. CHECK TRIGLYCERIDES. FOLLOW FOR PPN TOLERANCE, PO INTAKE AND PLAN OF CARE. SEE CLINICAL NUTRITION ASSESSMENT.
[2025-03-31] MEDS: Lactated Ringers 1,000 ML 100 ML IVCONT (09:42)
[2025-03-31 11:52] VITALS: BP 129/58; PULSE 97; RESP 18; TEMP 36.6; O2SAT 92
[2025-03-31 16:00] VITALS: BP 120/59; PULSE 93; RESP 16; TEMP 36.2; O2SAT 98
[2025-03-31 19:46] VITALS: BP 118/56; PULSE 96; RESP 20; TEMP 36.8; O2SAT 96
[2025-03-31] MEDS: Parenteral Nutrition 1,080 ML 45 ML IV (21:42)
[2025-03-31 23:13] VITALS: BP 118/53; PULSE 88; RESP 18; TEMP 36.8
--- NOTE | 2025-04-01 02:45 | PM.EVENT ---
Event Note Date of Service: 04/01/25 Event Note: 0245 report from Nursing BS 470. Pt was straigh catheterized yesterday for same issue. Currenltly pt has no desire to void. UA low suspicion for UTI. Ordered for luevano as pt failed BS X2. Urine culture requested. Time Spent With Patient Time: Total time managing care of this patient today ____ minutes.
[2025-04-01 02:48] VITALS: BP 132/63; PULSE 87; RESP 20; TEMP 36.2; O2SAT 96
--- NOTE | 2025-04-01 03:17 | PC.NURSE ---
0235: pt bladder scanned for 576 mL. Provider Elijah notified - luevano and urine culture order. Luevano placed and initial urine output 510 mL tea colored urine. Urine sample sent to lab.
[2025-04-01] MEDS: Lactated Ringers 1,000 ML 100 ML IVCONT (05:24)
[2025-04-01 07:05] LABS: Albumin Level 1.9 g/dL (3.5-5.0); Anion Gap 11 (12-20); Blood Urea Nitrogen 27 mg/dL (9-16); Calcium 7.5 mg/dL (8.4-10.2); Carbon Dioxide 20 mmol/L (22-29); Chloride 103 mmol/L (96-108); Creatinine Clr Calc Pharmacy 56.4; Estimated Glomerular Filt Rate > 60; Magnesium 2.1 mg/dL (1.6-2.6); Potassium 3.3 mmol/L (3.3-5.1); Sodium 131 mmol/L (135-145); Triglycerides 96 mg/dL (<150)
--- NOTE | 2025-04-01 07:14 | HO.PM.IMPN ---
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 Very Frail and weak appearing Resp: CTA bilaterally CVS: S1, S2, RRR GI: mild distension Musculoskeletal: Generalized weakness noted Psych: Appropriate affect Vital Signs: Vital Signs: Last Vital Signs Temp 97.2 F 04/01/25 02:48 Pulse 87 04/01/25 02:48 Resp 20 04/01/25 02:48 BP 132/63 04/01/25 02:48 Pulse Ox 96 04/01/25 02:48 O2 Del Method Room Air 04/01/25 02:48 BMI result Body Mass Index 22.0 Objective Data Active Medications Acetaminophen (Acetaminophen 325 Mg Tablet) 650 mg PO Q6H PRN PRN Reason: Pain, Mild 1-3,fever,headache Last Admin: 03/31/25 20:33 Dose: 650 mg Documented By: JAMES Apixaban (Apixaban 5 Mg Tablet) 5 mg PO BID [facility] Last Admin: 03/31/25 20:34 Dose: 5 mg Documented By: JAMES Calcium Carbonate (Calcium Carbonate 750 Mg Tab.Chew) 750 mg PO Q4H PRN PRN Reason: Heartburn Diltiazem HCl (Diltiazem Hcl Cd 240 Mg Cap.Er.Deg) 240 mg PO DAILY [facility]; Protocol Last Admin: 03/31/25 08:41 Dose: 240 mg Documented By: ALF Docusate Sodium (Docusate Sodium 100 Mg Capsule) 100 mg PO BID [facility] Last Admin: 03/31/25 20:37 Dose: 100 mg Documented By: JAMES Flecainide Acetate (Flecainide Acetate 50 Mg Tablet) 75 mg PO BID [facility] Last Admin: 03/31/25 20:37 Dose: 75 mg Documented By: JAMES Piperacillin Sod/Tazobactam (Sod 3.375 gm/ Sodium Chloride) 50 mls @ 100 mls/hr IV Q6H [facility] Last Infusion: 04/01/25 02:55 Dose: Infused Documented By: JAMES Nutrition (Parenteral) (Parenteral Nutrition) 1,080 mls @ 45 mls/hr IV .Q24H [facility]; Protocol Stop: 04/01/25 20:59 Last Admin: 03/31/25 21:42 Dose: 45 mls/hr Documented By: JAMES Lactated Ringer's (Lr) 1,000 mls @ 100 mls/hr IVCONT .Q10H [facility] Last Admin: 04/01/25 05:24 Dose: 100 mls/hr Documented By: JAMES Levothyroxine Sodium (Levothyroxine Sodium 75 Mcg Tablet) 75 mcg PO DAILY@0600 [facility] Last Admin: 04/01/25 05:31 Dose: 75 mcg Documented By: JAEMS Magnesium Hydroxide (Milk Of Magnesia 30 Ml Oral.Susp) 30 ml PO DAILY PRN PRN Reason: Constipation Melatonin (Melatonin 3 Mg Tablet) 6 mg PO BEDTIME PRN PRN Reason: Insomnia Last Admin: 03/27/25 21:01 Dose: 6 mg Documented By: JM Mesalamine (Mesalamine 250 Mg Capsule.Er) 1,000 mg PO TID [facility] Last Admin: 03/31/25 20:34 Dose: 1,000 mg Documented By: JAMES Oxycodone HCl (Oxycodone Hcl Immed Release 5 Mg Tablet) 5 mg PO Q4H PRN PRN Reason: Pain, Moderate(Pain Scale 4-6) Last Admin: 03/30/25 09:23 Dose: 5 mg Documented By: ALF Polyethylene Glycol (Polyethylene Glycol 3350 17 Gm Powd.Pack) 17 gm PO DAILY [facility] Last Admin: 03/31/25 08:42 Dose: 17 gm Documented By: ALF Prochlorperazine Edisylate (Prochlorperazine Edisylate 10 Mg/2 Ml Vial) 5 mg IVPUSH Q6H PRN PRN Reason: Nausea and Vomiting Last Admin: 03/29/25 02:18 Dose: 5 mg Documented By: HO.MCCARTN Senna (Sennosides 8.6 Mg Tablet) 17.2 mg PO BEDTIME [facility] Last Admin: 03/31/25 20:37 Dose: 17.2 mg Documented By: JAMES Sodium Biphosphate/Sodium Phosphate (Sodium Phosphate,Dare-Dibasic 133 Ml Enema) 133 ml [place] ONCE PRN PRN Reason: Constipation Sodium Chloride (0.9 % Sodium Chloride Flush 3 Ml Syringe) 3 ml IVFLUSH QSHIFT [facility] Last Admin: 03/31/25 21:43 Dose: 3 ml Documented By: JAMES Labs 03/30/25 09:23 04/01/25 05:51 Labs: Laboratory Results - last 24 hr 03/31/25 04/01/25 05:59 05:51 Hold Purple Top SEE NOTE Anion Gap 11 L Estim Creat Clear Calc 56.4 Estimated GFR > 60 Random Glucose 112 Calcium 7.5 L Phosphorus 2.8 2.1 L Magnesium 2.1 2.1 Albumin 2.0 L 1.9 L Triglycerides 96 Microbiology Microbiology Results: Microbiology 03/26/25 15:31 Blood Culture - Final Blood - Venous No growth after 5 days. 03/26/25 15:29 Blood Culture - Final Blood - Venous No growth after 5 days. 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 Was noted to have abd pain, likely has proctocolitis (thickening in the wall of the sigmoid and rectum on imaging). Repeat CT on 03/29 showed worsening inflammation, increasing fluid, distended gallbladder, and ongoing constipation. RUQ U/S with mild gallbladder distention without evidence of cholecystitis or Becker's sign. no CBD dilation. Was seen by GI - pain due to Constipation, possibly with stercoral colitis and proctitis or residual effect of prior radiation with narrowing of sigmoid; continue bowel reg; continue flex sig if no improvement. Was seen by general surgery - who offered colectomy with diverting stoma, but pt declined. PPN was initiated as a trial on 03/31/25. The AM of 05/02/24, the patient and family has elected to forego PPN and pursue hospice because her?advanced age, multiple comorbidities, and declining functional status?make further aggressive interventions unlikely to improve quality of life or prognosis. She has experienced?persistent, worsening abdominal pain?with no clear reversible cause, and her overall condition has deteriorated despite medical management. After careful discussion with her family and the care team, she has chosen to prioritize comfort, dignity, and symptom control over continued hospitalization and artificial nutrition, aligning with her goals of care and choose Hospice. CM consulted, will be likely going home tomorrow with Hospice based on arrangements. 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: Diet: Diet as tolerated for comfort (may take sips or small amounts if desired) Discontinue PPN and IV fluids unless needed for comfort (e.g., to relieve thirst) Medications: Discontinue non-essential medications (statin, vitamins, etc.) Continue comfort medications: Opioids for pain (e.g., morphine or oxycodone, scheduled and PRN) Acetaminophen PRN for pain/fever Antiemetics PRN for nausea (e.g., ondansetron) Laxatives or stool softeners PRN for comfort Anticholinergics (e.g., hyoscyamine, scopolamine) for secretions if needed Anxiolytics PRN for anxiety or agitation (e.g., lorazepam) Oxygen for dyspnea if needed for comfort Continue Eliquis only if felt to be contributing to comfort (otherwise discontinue) Continue other chronic medications only if contributing to comfort Monitoring: Discontinue routine vital signs, labs, and imaging unless needed for symptom management No further invasive procedures or blood draws Nursing Care: Frequent repositioning for comfort and skin care Mouth care and hygiene Allow family at bedside as desired Provide emotional and spiritual support Consults: Hospice care consult for ongoing support and transition planning Quality Stroke Does the patient have a stroke diagnosis?: No VTE Prior VTE?: No VTE Risk Level:: Medical - moderate - high VTE Device Contraindication: Treatment Not Indicated VTE Drug Contraindication: N/A - Med Ordered
[2025-04-01 07:19] VITALS: BP 119/59; PULSE 84; RESP 16; TEMP 36.1; O2SAT 98
[2025-04-01] MEDS: dilTIAZem HCL CD 240 MG CAP.ER.DEG PO (08:20)
[2025-04-01] MEDS: 0.9 % Sodium Chloride Flush 3 ML SYRINGE IVFLUSH ×3 (08:22→20:29)
--- NOTE | 2025-04-01 09:38 | MHC.CLN ---
Addendum entered by Patti Mosquera RD 04/01/25 11:00: PER MD, PATIENT TO TRANSITION TO HOSPICE CARE. CANCEL PPN RX FOR TONIGHT. Addendum entered by Patti Mosquera RD 04/01/25 09:51: PATIENT QUALIFIES MODERATELY MALNOURISHED IN THE CONTEXT OF CHRONIC ILLNESS. Original Note: F/U DIET RX: FULL LIQUIDS WITH ENSURE TID. VERY POOR PO INTAKE. UNABLE TO TOLERATE ADEQUATE PO INTAKE DUE TO ANAL CANCER AND ABDOMINAL PAIN. STARTED PPN 03/31. REVIEWED LABS. COMMUNICATED WITH PHARMACY. RECOMMEND ADVANCE PPN TO MAX GOAL RATE: PPN AT 65 ML PER HOUR, AD 65 G LIPIDS. PROVIDES 66 G PROTEIN (1.25 G/KG), 156 G DEXTROSE, 1446 TOTAL KCALS (27.4 KCALS/KG). REPLETE LYTES NEEDED. FOLLOW FOR PPN TOLERANCE, PO INTAKE AND PLAN OF CARE.
[2025-04-01 12:00] VITALS: BP 111/56; PULSE 88; RESP 16; TEMP 36.4; O2SAT 96
--- NOTE | 2025-04-01 12:06 | MHC.CM.PN ---
Patient/family have decided to move forward with hospice services via [facility] at home. Son lives with patient and will provide care. Daughter will also assist. Awaiting hospital bed delivery, anticipated tomorrow am. BLS transport booked for 12pm / per hospice request.
[2025-04-01 15:27] VITALS: RESP 18
[2025-04-01] MEDS: Morphine Sulfate Oral Sol 10 MG/5 ML SOLUTION 5 MG SUBLINGUAL ×2 (16:08→20:28)
[2025-04-01 20:00] VITALS: RESP 16
[2025-04-01 23:24] VITALS: RESP 16
[2025-04-02] MEDS: Morphine Sulfate Oral Sol 10 MG/5 ML SOLUTION 5 MG SUBLINGUAL (01:17)
[2025-04-02 03:16] VITALS: TEMP -10; TEMP 14
--- NOTE | 2025-04-02 07:27 | PM.DS ---
DS: Providers Provider Date of Service: 04/02/25 Date of admission: 03/26/25 23:46 Date of discharge: 04/02/25 Primary care physician: Kala Lundberg MD Consults: 04/01/25 12:48 Consult to Case Management Routine Comment: Consult to Sales Representative [employer] Routine Comment: Consult to Hospice Routine Comment: DS: Diagnosis Discharge Diagnosis (1) Abdominal pain, LLQ (left lower quadrant): Status: Acute (2) Lower abdominal pain: Status: Acute DS: Summary Hospital Course Hospital Course: Per H&P:Chief Complaint: Abdominal pain 79-year-old female with a past medical history of AFib on Eliquis, Crohn's disease, history of diverticulitis, 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 Patient mentioned that since her last radiotherapy in August; she has been having abdominal discomfort. Mentions she has not had any bowel movement. Reports passing gas. Mentions decreased appetite. Has had nausea. Denies any fevers. Denies any signs of bleeding. Patient denies any chest pain or palpitations. Denies any urinary symptoms. Review of all other systems is negative except mentioned above ER course: Per ER team, patient has mild diffuse abdominal tenderness; CT abdomen pelvis showed findings concerning for proctitis/colitis/severe stool burden. ER patient tried to do enema-patient refused; tried to do a rectal examination/manual disimpaction-patient refused absolutely. Given pain medications Given Zosyn CT scan also showed vertebral compression fractures but patient denied any fall or injury. Exam grossly nonfocal #Anal cancer s/p radiation and chemo #proctocolitis due to recent chemo and radiation #GOC #Hospice #AFTT #H/o Chrons dx # Afib on Eliquis # Hypothyroidism # GERD #HLD This is an 79 year old female with a history of AFib on eliquis, diverticulosis, Crohn's, anal cancer s/p radiation and chemo, hypothyroidism, COPD who presented to the hospital with worsening abdominal pain since August. Was noted to have abd pain, likely has proctocolitis (thickening in the wall of the sigmoid and rectum on imaging). Repeat CT on 03/29 showed worsening inflammation, increasing fluid, distended gallbladder, and ongoing constipation. RUQ U/S with mild gallbladder distention without evidence of cholecystitis or Becker's sign. no CBD dilation. Was seen by GI - pain due to Constipation, possibly with stercoral colitis and proctitis or residual effect of prior radiation with narrowing of sigmoid; continue bowel reg; continue flex sig if no improvement. Was seen by general surgery - who offered colectomy with diverting stoma, but pt declined. PPN was initiated as a trial on 03/31/25. The AM of 05/02/24, the patient and family has elected to forego PPN and pursue hospice because her advanced age, multiple comorbidities, and declining functional status make further aggressive interventions unlikely to improve quality of life or prognosis. She has experienced persistent, worsening abdominal pain with no clear reversible cause, and her overall condition has deteriorated despite medical management. After careful discussion with her family and the care team, she has chosen to prioritize comfort, dignity, and symptom control over continued hospitalization and artificial nutrition, aligning with her goals of care and choose Hospice. CM consulted, will be likely going home tomorrow with Hospice based on arrangements. SURGERY AID Orders: Diet as tolerated for comfort (may take sips or small amounts if desired) Discontinue PPN and IV fluids unless needed for comfort (e.g., to relieve thirst) Medications: Discontinue non-essential medications (statin, vitamins, etc.) Continue comfort medications: Opioids for pain (e.g., morphine scheduled and PRN) Acetaminophen PRN for pain/fever Antiemetics PRN for nausea (e.g., ondansetron) Laxatives or stool softeners PRN for comfort Anticholinergics (e.g., hyoscyamine, scopolamine) for secretions if needed Anxiolytics PRN for anxiety or agitation (e.g.,valium) Oxygen for dyspnea if needed for comfort Continue Eliquis only if felt to be contributing to comfort (otherwise discontinue) Continue other chronic medications only if contributing to comfort Monitoring: Discontinue routine vital signs, labs, and imaging unless needed for symptom management No further invasive procedures or blood draws Nursing Care: Frequent repositioning for comfort and skin care Mouth care and hygiene Allow family at bedside as desired Provide emotional and spiritual support Consults: Hospice care consult for ongoing support and transition planning Time spent discussing smoking cessation with patient: more than 10 minutes Status at Discharge Functional status at discharge: bed bound Overall status at discharge: other (Deconditioned comfort measures) Time Attestation Discharge Coordination Time (in mins): 45 Quality: Safe Use of Opioids Does Pt have an Active Cancer Diagnosis on the Problem List?: Yes Opioid Measure Date for [facility] Report: 03/03/25 Opioid Measure Time for [facility] Report: 07:30 Quality: Stroke Does the patient have a stroke diagnosis?: No Physical Exam Vital Signs: Vital Signs: Last Vital Signs Temp 14 F L 04/02/25 03:16 Pulse 88 04/01/25 12:00 Resp 16 04/01/25 23:24 BP 111/56 L 04/01/25 12:00 Pulse Ox 96 04/01/25 12:00 O2 Del Method Room Air 04/01/25 12:00 BMI result Body Mass Index 22.0 DS: Data Data Completed and Pending Completed studies during hospitalization [Text1]: Procedures Excision of Anus, Via Natural or Artificial Opening, Diagnostic (05/07/24) Excision of Ascending Colon, Via Natural or Artificial Opening Endoscopic, Diagnostic (05/07/24) Excision of Rectum, Via Natural or Artificial Opening Endoscopic, Diagnostic (10/30/24) Excision of Sigmoid Colon, Via Natural or Artificial Opening Endoscopic, Diagnostic (05/07/24) Excision of Stomach, Pylorus, Via Natural or Artificial Opening Endoscopic, Diagnostic (05/07/24) Discharge Plan Discharge Anticipated Discharge Date/Time: 04/02/25 07:17 Patient Disposition: Hospice - Home Discharge Diagnosis: End-stage anal cancer status post chemo and radiation, adult failure to thrive, comfort care measures Referrals: Juan DE JESUS, [facility] [Provider Group] - 1 Week Kala Lundberg MD [Primary Care Provider, Internal Medicine] - 1 Week Discharge Medications: New morphine 10 mg/5 mL Solution 5 mg sublingual Q4H PRN (Reason: glucose and syrup weigher) 5 Days Qty: 100 0RF Rx Instructions: Partial Fill upon patient request. lorazepam 1 mg Tablet 1 mg PO Q4H PRN (Reason: Myoclonic twitching/anxiety) 7 Days Qty: 10 0RF acetaminophen 650 mg Suppository 650 mg [place] Q4H PRN (Reason: Fever >/= 100, Pain, mild 1-3) 7 Days Qty: 50 0RF ondansetron 4 mg Tablet,Disintegrating 4 mg translingual Q8H PRN (Reason: Nausea And Vomiting) 6 Days Qty: 14 0RF sennosides [Senna Lax] 8.6 mg Tablet 17.2 mg PO BEDTIME 7 Days Qty: 14 0RF Discontinued levothyroxine 75 mcg tablet 75 mcg PO DAILY@0600 Eliquis 5 mg tablet 5 mg PO BID Rx Instructions: stop for 3 days before colonoscopy flecainide 50 mg tablet 75 mg PO BID diltiazem HCl 240 mg tablet extended release 24 hr 240 mg PO DAILY tramadol 50 mg tablet 50 mg PO Q8H PRN (Reason: pain, severe) Qty: 40 0RF Discharge Orders: Discharge Order (Routine); Ordered 04/02/25 Ordered By: Tammy Valdez Diet: Advance to usual diet Activity on Discharge: As tolerated Stand Alone Forms: Patient Portal Discharge page Print Language: Scottish Care Plan Goals: Your Care Plan: You are being discharged home with hospice services. The focus of your care is comfort and quality of life. Hospice will provide support for you and your family, including nursing care, medications for symptom relief, and equipment as needed. What to Expect: Hospice Team: A hospice nurse will visit you at home regularly. You will also have access to a hospice physician, director of social media marketing, roller mill operator, and home health aides as needed. Medications: You will receive medications to help manage pain, shortness of breath, anxiety, nausea, and other symptoms. Take these as directed by the hospice team. Wound Care: Hospice will provide supplies and instructions for wound care. If you have a sacral ulcer, keep the area clean and dry, and follow the dressing change instructions provided by hospice. Nutrition: Eat and drink as you are able and as desired. There are no dietary restrictions unless you prefer them. Activity: Rest as needed. Assistance with mobility and personal care will be provided by family and/or hospice aides. Monitoring: There is no need for routine blood draws or vital sign checks unless needed for comfort. When to Call Hospice: Call your hospice nurse or the hospice 24-hour line if you experience: Uncontrolled pain or discomfort Difficulty breathing or increased shortness of breath New or worsening confusion or agitation Trouble swallowing medications Any other symptoms causing distress to you or your family Do NOT call 911 or go to the emergency room unless you or your family wish to discontinue hospice and pursue hospital care. Medications: Take only the medications provided or approved by hospice. Discontinue all medications not related to comfort, as directed by hospice. Equipment: Hospice will arrange for any necessary equipment (hospital bed, oxygen, wheelchair, etc.) to be delivered to your home. Support for Family: Hospice provides emotional and spiritual support for you and your loved ones. Social workers and chaplains are available to help with counseling, advance directives, and bereavement support. Follow-Up: The hospice team will coordinate all care and visits. Your primary care physician and specialists will be updated as needed. Additional Instructions: Keep the home environment safe and comfortable. Use pressure-relieving mattresses or cushions as provided. Maintain good skin care and reposition as tolerated to prevent further skin breakdown. Encourage gentle [id number] exercises as tolerated. If you have any questions or concerns, please contact your hospice team at any time. Health Concerns: SEE ABOVE Plan of Treatment: See above Assessment: See above
--- NOTE | 2025-04-02 11:14 | MHC.CM.PN ---
Patient to dc home w/ [facility] and family support. Per daughter, hospital bed has been delivered. Pharmacy will deliver meds to bedside. BLS transport scheduled for 12pm. , RN, patient and family aware. IMM delivered.
== END 2025-04-02 12:31 | disposition hospice, home (50) | DRG 394 ==
LOC: HO.ED 16:20 → HO.EDOVER 23:51 → HO.S3 03-27 07:35
PROVIDERS: Emergency Medicine; Nurse Practitioner Family; Physician Assistant Medical; Student in an Organized Health Care Education/Training Program; Admitting Provider Hospitalist; Emergency Provider Student in an Organized Health Care Education/Training Program; PCP Internal Medicine; Visit Provider Student in an Organized Health Care Education/Training Program
DX: K62.7 Radiation proctitis (principal); C21.0 Malignant neoplasm of anus, unspecified; E87.1 Hypo-osmolality and hyponatremia; K50.90 Crohn's disease, unspecified, without complications; Y84.2 Radiological procedure and radiotherapy as the cause of abnormal reaction of the patient, or of later complication, without mention of misadventure at the time of the procedure; K80.20 Calculus of gallbladder without cholecystitis without obstruction; R62.7 Adult failure to thrive; I48.91 Unspecified atrial fibrillation; K21.9 Gastro-esophageal reflux disease without esophagitis; E78.5 Hyperlipidemia, unspecified; Z66 Do not resuscitate; Z51.5 Encounter for palliative care; K59.00 Constipation, unspecified; E03.9 Hypothyroidism, unspecified; Z68.22 Body mass index [BMI] 22.0-22.9, adult; Z87.891 Personal history of nicotine dependence; Z79.01 Long term (current) use of anticoagulants; Z79.890 Hormone replacement therapy; Z79.899 Other long term (current) drug therapy
CPT/HCPCS: 36415; 74176; 74177; 76705; 80048; 80053; 80076; 81001; 82040; 82306; 83605; 83690; 83735; 83935; 84100; 84295; 84300; 84478; 85007; 85025; 85027; 87040; 87086; 87493; 99285; J0131; J0737; J1171; J2270; J2543; J7120; Q9967

== ENCOUNTER → 2025-03-26 15:16 | Outpatient (BNV) | payer MEDICARE, BC, SELFPAY | PROVIDERS: Emergency Provider Student in an Organized Health Care Education/Training Program; PCP Internal Medicine; Visit Provider Radiology Diagnostic Radiology | DX: K52.9 Noninfective gastroenteritis and colitis, unspecified (principal); K62.89 Other specified diseases of anus and rectum; N28.1 Cyst of kidney, acquired | CPT/HCPCS: 74176 ==

== ENCOUNTER 2025-03-26 23:46 | Outpatient (BNV) | payer MEDICARE, BC, SELFPAY | END 2025-03-29 10:36 | PROVIDERS: Admitting Provider Hospitalist; Emergency Provider Student in an Organized Health Care Education/Training Program; PCP Internal Medicine; Visit Provider Radiology Diagnostic Radiology | DX: K80.20 Calculus of gallbladder without cholecystitis without obstruction (principal); N32.89 Other specified disorders of bladder | CPT/HCPCS: 76705 ==

== ENCOUNTER → 2025-03-26 23:46 | Outpatient (BNV) | payer MEDICARE, BC, SELFPAY | PROVIDERS: Admitting Provider Hospitalist; Emergency Provider Student in an Organized Health Care Education/Training Program; PCP Internal Medicine; Visit Provider Student in an Organized Health Care Education/Training Program | DX: R10.32 Left lower quadrant pain (principal); R10.30 Lower abdominal pain, unspecified; K62.89 Other specified diseases of anus and rectum | CPT/HCPCS: 99222; 99232; 99233; 99499 ==

== ENCOUNTER → 2025-03-26 23:46 | Outpatient (BNV) | payer MEDICARE, BC, SELFPAY | PROVIDERS: Admitting Provider Hospitalist; Emergency Provider Student in an Organized Health Care Education/Training Program; PCP Internal Medicine; Visit Provider Internal Medicine Gastroenterology | DX: R10.32 Left lower quadrant pain (principal) | CPT/HCPCS: 99232 ==

== ENCOUNTER → 2025-03-26 23:46 | Outpatient (BNV) | payer MEDICARE, BC, SELFPAY | PROVIDERS: Admitting Provider Hospitalist; Emergency Provider Student in an Organized Health Care Education/Training Program; PCP Internal Medicine | DX: R10.32 Left lower quadrant pain (principal) | CPT/HCPCS: 99223; 99232; 99499 ==